=== PATIENT | female | born 2000 | race Caucasian/White ===

== ENCOUNTER → 2025-01-30 | Outpatient (CLI) | payer MEDICAID, SELFPAY ==
[2025-01-30 13:23] LABS: Creatinine, Urine (random) 73.70 mg/dL (28.00-217.00); Protein, Urine (Random) 7.2 mg/dL (0.0-12.0); Protein:Creat Ratio 98 mg/g CRE (0-200)
--- OUTSIDE RECORDS SUMMARY | 2025-01-30 19:37 | XMS RPT_ITS | CCD ---
Author Organization [facility] Care Team Providers Care Lead Java Developer Architect Name Role Phone No, Physician Unavailable Unavailable YACOB, DESALEGN Unavailable Unavailable LORENZO, JUAN Unavailable Unavailable LORENZO, JUAN Unavailable Unavailable YACOB, DESALEGN Unavailable Unavailable LORENZO, JUAN Unavailable Unavailable YACOB, DESALEGN Unavailable Unavailable YACOB, DESALEGN Unavailable Unavailable LORENZO, JUAN Unavailable Unavailable YACOB, DESALEGN Unavailable Unavailable YACOB, DESALEGN Unavailable Unavailable JUAN NGUYEN Unavailable Unavailable Juan Nguyen Primary Care Provider JUAN NGUYEN Primary Care Unavail able Juan Nguyen Primary Care Provider Regina Ramires Unavailable Feliz Waters Unavailable Brie Odell Unavailable [phone] Vee Lofton Unavailable Ok, Rema Ary Unavailable [phone] Juan Nguyen Primary Care Provider Juan Nguyen MDbeth Primary Care Provide r Regina Ramires CNP Unavailable Feliz Waters MD Unavailable [phone] Brie Odell MD Unavailable [phone] Vee Lofton MD Unavailable [phone] Ok CNM, Rema Ary Unavailable Darnell Odell DO Unavailable Unavailable Juan Nguyen Unavailable Unavailable Darnell Odell Unavailable Unavailable Juan Nguyen MD [facility] Provide r Ike GARCIA, Regina Vasquez Unavailable Jt MACARIO, Feliz Gallagher Unavailable Brie Odell MD Unavailable Rolly MACARIO, Vee Aguilar Unavailable Ok SPIVEY, Rema Ary Unavailable Juan Nguyen Unavailable Unavailable Unavailable Alyssa HARVEST CREW SUPERVISOR, Regina Christina Unavailable [phone] Jt MACARIO, Feliz Gallagher Unavailable Cass MACARIO, Brie Hammond Unavailable Rolly MACARIO, Vee Aguilar Unavailable Ok DELAROSA, Rema Ary Unavailable Darnell Odell Unavailable Unavailable Unavailable Unavailable Unavailable Unavailable Duy, Dr. Darnell Carmona Attending Unavailabl e Duy, Dr. Darnell Carmona Referring Unavailabl e Lorenzo, Dr. Juan Carrizales [facility] Fariba vailable Duy, Dr. Darnell Carmona Attending Unavailabl e Chelan, Dr. Darnell Carmona Referring Unavailabl e Lorenzo, Dr. Juan Mcgeebeth [facility] Fariba vailable Lorenzo, Dr. Juan Carrizales [facility] Fariba vailable Duy, Dr. Darnell Carmona Attending Unavailabl e Duy, Dr. Darnell Carmona Referring Unavailabl e Lorenzo, [facility] Robbie, Dr. Steele Attending Unavailable Duy, Dr. Darnell Carmona Attending Unavailabl e Chelan, Dr. Darnell Carmona Referring Unavailabl e Lorenzo, Dr. Juan Carrizales [facility] Fariba vailable Duy, Dr. Darnell Carmona Referring Unavailabl e Duy, Dr. Darnell Carmona Attending Unavailabl e Lorenzo, Dr. Juan [facility] Fariba vailable Chelan, Dr. Darnell Carmona Attending Unavailabl e Chelan, Dr. Darnell Carmona Referring Unavailabl e Lorenzo, [facility] Far[facility]ailable Duy, Dr. Darnell Cramona Attending Unavailabl e Chelan, Dr. Darnell Carmona Referring Unavailabl e Lorenzo, [facility] Rigg[facility], [facility] Chelan, Dr. Darnell Carmona Attending Unavailabl e Chelan, Dr. Darnell Carmona Referring Unavailabl e Riggins, [facility]ailable Duy, Dr. Darnell Carmona Attending Unavailabl e Chelan, Dr. Darnell Carmona Referring Unavailabl e Lorenzo, [facility]ailable MULTANI, Dr. AIDAN HOWARD Referring Unav ailable MULTANI, Dr. AIDAN HOWARD Attending Unav ailable Duy, Dr. Darnell Carmona Referring Unavailabl e Chelan, Dr. Darnell Carmona Attending Unavailabl e Lorenzo, [facility] Far[facility] vailable Duy, Dr. Darnell Carmona Referring Unavailabl e Chelan, Dr. Darnell Carmona Attending Unavailabl e Riggins, [facility]ailable Chelan, Dr. Darnell Carmona Attending Unavailabl e Duy, Dr. Darnell Carmona Referring Unavailabl e Riggins, [facility]ailable Dyu, Dr. Darnell Carmona Attending Unavailabl e Duy, Dr. Darnell Carmona Referring Unavailabl e Riggins, [facility] Far[facility]ailable Chelan, Dr. Darnell Carmona Attending Unavailabl e Chelan, Dr. Darnell Carmona Referring Unavailabl e Lorenzo, [facility] Far[facility] Duy, Dr. Darnell Carmona Attending Unavailabl e Lorenzo, [facility]ailable Chelan, Dr. Darnell Carmona Referring Unavailabl e Lorenzo, Juan Cheyenne Pimentel [place] Unavailable Unavailabl e Multani, Aidan Unavailable Unavailable Riggins, Dr. Juan Carrizales [facility] Fariba vailable Chelan, Dr. Darnell Carmona Attending Unavailabl e Lorenzo, Dr. Juan Carrizales [facility] Fariba vailable Chelan, Dr. Darnell Carmona Attending Unavailabl e Lorenzo, Dr. Juan Carrizales [facility] Fariba vailable Chelan, Dr. Darnell Carmona Referring Unavailabl e Duy, Dr. Darnell Carmona Admitting Unavailabl e Duy, Dr. Darnell Carmona Attending Unavailabl e Lorenzo, Dr. Juan Carrizales [facility] Fariba vailable Feliz Giordano Attending Unavailable GiulianaFeliz figueroa Referring Unavailable Chelan, Dr. Darnell Carmona Attending Unavailabl e Lorenzo, Dr. Juan Carrizales [facility] Fariba vailable Chelan, Dr. Darnell Carmona Referring Unavailabl e Chelan, Dr. Darnell Carmona Attending Unavailabl e Lorenzo, Dr. Juan Carrizales [facility] Fariba vailable Duy, Dr. Darnell Carmona Referring Unavailabl e Multani, Dr. Aidan Howard Attending Unav ailable Riggins, Dr. Juan Carrizales [facility] Fariba vailable Duy, Dr. Darnell Carmona Referring Unavailabl e Multani, Dr. Aidan Howard Attending Unav ailable Lorenzo, Dr. Juan Carrizales [facility] Fariba vailable Multani, Dr. Aidan Howard Referring Unav ailable Riggins, Dr. Juan Carrizales [facility] Fariba vailable Duy, Dr. Darnell Carmona Attending Unavailabl e Multani, Dr. Aidan Howard Attending Unav ailable Lorenzo, Dr. Juan Carrizales [facility] Fariba vailable Multani, Dr. Aidan Howard Referring Unav ailable Multani, Dr. Aidan Howard Admitting Unav ailable Multani, Dr. Aidan Howard Attending Unav ailable Riggins, [facility]ailable Multani, Dr. Aidan Howard Referring Unav ailable Riggins, Dr. Juan Carrizales [facility] Fariba vailable Rao, Dr. Rip Johnson Attending Unava ilable Lorenzo, Dr. Juan Mcgeebeth [facility] Fariba vailable LEMASTERS, DO CHRISTOPHER VELA Attending Unava ilable Lorenzo, Dr. Juan Carrizales [facility] Fariba vailable Duy, Dr. Darnell Carmona Attending Unavailabl e Chelan, Dr. Darnell Carmona Referring Unavailabl e Riggins, Dr. Juan Carrizales [facility] Fariba vailable Duy, Dr. Darnell Carmona Referring Unavailabl e Duy, Dr. Darnell Carmona Attending Unavailabl e Chelan, Dr. Darnell Carmona Attending Unavailabl e Lorenzo, Dr. Juan Carrizales [facility] Fariba vailable Chelan, Dr. Darnell Carmona Referring Unavailabl e Lorenzo, Dr. Juan Carrizales [facility] Fariba vailable Chelan, Dr. Darnell Carmona Referring Unavailabl e Chelan, Dr. Darnell Carmona Attending Unavailabl e Chelan, Dr. Darnell Carmona Attending Unavailabl e Riggins, Dr. Juan Carrizales [facility] Fariba vailable Chelan, Dr. Darnell Carmona Referring Unavailabl e Multani, Dr. Aidan Howard Attending Unav ailable Lorenzo, Dr. Juan Carrizales [facility] Fariba vailable Multani, Dr. Aidan Howard Referring Unav ailable Riggins, Dr. Juan Mcgeebeth [facility] Fariba vailable Multani, Dr. Aidan Howard Referring Unav ailable Multani, Dr. Aidan Howard Attending Unav ailable Angle HARVEST CREW SUPERVISOR, Regina Vasquez Unavailable Jt MACARIO, Feliz Gallagher Unavailable Brie Odell MD Unavailable [phone] Vee Lofton MD Unavailable Ok SPIVEY, Rema Mcallister Unavailable Sergey GARCIA, Hayley Pelletier Primary Care Provider Etzel H[employer] OPERATOR-[facility], Hayley Primary Care Provider Corrine MACARIO, Vee Aguilar Unavailable [phone] ETKEITH, HAYLEY PELLETIER Primary Care Unavailable ETZEL, HAYLEY PELLETIER Primary Care Unavailable ETZEL, HAYLEY PELLETIER Attending Unavailable ETZEL, HAYLYE PELLETIER Referring Unavailable Etzel [employer], Hayley Primary Care Provider [phone] ETZEL, HAYLEY Primary Care Unavailable LORETO ART Attending Unavailable LORETO ART Referring Unavailable ETZEL, HAYLEY PELLETIER Primary Care Unavailable RICCARDO OSBORNE Attending Unavailable ETZEL, HAYLEY PELLETIER Primary Care Unavailable EFREN JASSO Attending Unavailable ETZEL, HAYLEY PELLETIER Primary Care Unavailable LORETO THOMPSON Attending Unavailable Etzel [facility], Hayley Primary Care Provider ETKEITH, HAYLEY PELLETIER Primary Care Unavailable CANDIS SAUNDERS Attending Unavail able ETZEL, HAYLEY PELLETIER Primary Care Unavailable CANDIS SAUNDERS Attending Unavail able MASIMJOSHUA ROBLES Attending Unava ilable ETZEL, HAYLEY PELLETIER Primary Care Unavailable CANDIS SAUNDERS Attending Unavail able ETZEL, HAYLEY PELLETIER Primary Care Unavailable LORETO HAYES Attending Unavailable MASJOSHUA CARDENAS Admitting Unava ilable MASIMMARGARET, JOSHUA CHEN Referring Unava ilable ETZEL, HAYLEY PELLETIER Primary Care Unavailable ETZEL, HAYLEY PELLETIER Primary Care Unavailable CANDIS SAUNDERS Attending Unavail able ETZEL, HAYLEY PELLETIER Primary Care Unavailable CANDIS SAUNDERS Attending Unavail able ETZEL, HAYLEY PELLETIER Primary Care Unavailable CANDIS SAUNDERS Attending Unavail able ETZEL, HAYLEY PELLETIER Primary Care Unavailable SAUNDERSCANDIS DIA Attending Unavail able SAUNDERSCANDIS Attending Unavail able ETZEL, HAYLEY PELLETIER Primary Care Unavailable CANDIS SAUNDERS Attending Unavail able ETZEL, HAYLEY PELLETIER Primary Care Unavailable ETZEL, HAYLEY PELLETIER Referring Unavailable ETZEL, HAYLEY PELLETIER Attending Unavailable ETZEL, HAYLEY PELLETIER Primary Care Unavailable MIRTHA CHO Attending Unavailable SELF, SELF Referring Unavailable ETZEL, HAYLEY Primary Care Unavailable ETZEL, HAYLEY Primary Care Unavailable SELF, SELF Referring Unavailable APRIL BULL Attending Unavailable OSMAR PADILLA Attending Unavailable SELF, SELF Referring Unavailable ETZEL, HAYLEY Primary Care Unavailable ROGELIO FREEMAN Attending Unavailable ROGELIO FREEMAN Referring Unavailable ETZEL, HAYLEY Primary Care Unavailable LORETO ART Attending Unavailable LORETO ART Referring Unavailable ETZEL, HAYLEY Primary Care Unavailable LORETO ART Referring Unavailable JORGITO, APRIL Attending Unavailable ETZEL, HAYLEY Primary Care Unavailable JORGITO, APRIL Attending Unavailable JORGITO, APRIL Referring Unavailable ETZEL, HAYLEY Primary Care Unavailable JORGITO, APRIL Attending Unavailable JORGITO, APRIL Referring Unavailable ETZEL, HAYLEY Primary Care Unavailable JORGITO, APRIL Attending Unavailable JORGITO, APRIL Referring Unavailable ETZEL, HAYLEY Primary Care Unavailable JORGITO, APRIL Attending Unavailable JORGITO, APRIL Referring Unavailable ETZEL, HAYLEY Primary Care Unavailable Leesa MACARIO, Dr. Enamorado Attending Provider Kelsea Landers Attending Unavailable Kelsea Landers Attending Unavailable Allergies Allergy Classification Reported Allergen(s) Allergy Type Date of Onset Reaction(s) Facility Latex (7 sources) natural latex rubber; Translations: [Latex Gloves] Substance Allergy 4 Rash [facility] lurasidone (2 sources) lurasidone Drug Allergy 9 Other (See Comments) [facility] montelukast (6 sources) montelukast; Translations: [Singulair] Drug Allergy 4 Other (See Comments) [facility] Ondansetron (2 sources) Ondansetron Drug Allergy 9 GI Intolerance [facility] Serotonin Reuptake Inhibitors (SSRIs) (2 sources) Sertraline Drug Allergy 9 Anxiety [facility] (20 sources) montelukast; Translations: [MONTELUKAST] Drug Allergy 4 Other (See Comments), Hallucination [facility] (20 sources) natural latex rubber; Translations: [LATEX, NATURAL RUBBER] Propensity to adverse reactions to drug (disorder) 4 Rash [facility] (20 sources) Ondansetron; Translations: [ONDANSETRON HCL] Drug Allergy 9 GI Intolerance [facility] (20 sources) lurasidone; Translations: [Unknown] Drug Allergy 9 Other (See Comments), Suicidal [facility] Rep[facility] (20 sources) Sertraline Drug Allergy 9 Anxiety, Agitation [facility] (20 sources) Latex rubber gloves; Translations: [Latex Gloves] Allergy to drug (finding) [facility] [address] [employer] Work Phone: (20 sources) montelukast; Translations: [Singulair] Drug Allergy 1 [facility] [address] [employer] Work Phone: (16 sources) Latex; Translations: [latex] 7 Rash [facility] (2 sources) lurasidone Drug Allergy Other [facility] (2 sources) montelukast Drug Allergy Other [facility] (20 sources) topiramate; Translations: [TOPIRAMATE] Drug Allergy 0 Other (See Comments) [facility] (13 sources) Ondansetron Drug Allergy 9 Nausea and Vomiting [facility] [employer] [facility] (2 sources) Topiramate Propensity to adverse reactions to drug 0 [facility] [employer] [facility] (1 source) Ondansetron Drug Allergy 5 [facility] Repository Medications Current Medications Medication Drug Class(es) Dates Sig (Normalized) Sig (Original) acetaminophen 300 mg / codeine phosphate 30 mg oral tablet (2 sources) Opioid Agonist Start: 08-06-2020 End: 08-09-2020 take 1 tablet by mouth once at bedtime as needed for headache acetaminophen-cod eine (TYLENOL #3) 300-30 mg per tablet Indications: Chronic tension-type headache, not intractable Take 1 (one) tablet by mouth at bedtime as needed (headache) . 3 tablet 0 08/06/2020 08/09/2020 Active amoxicillin 500 mg oral capsule (10 sources) Penicillin-class Antibacterial Start: 11-01-2024 End: 11-08-2024 take 1 capsule by mouth every twelve hours Amoxicillin 500 MG capsule Indications: Strep throat Take 1 capsule by mouth every 12 hours for 7 days. 14 capsule 11/01/2024 11/08/2024 Active Start: 05-14-2023 End: 05-24-2023 take 1 tablet by mouth twice daily amoxicillin (AMOXIL) 875 MG tablet Indications: Recurrent acute suppurative otitis media without spontaneous rupture of tympanic membrane of both sides Take 1 (one) tablet (875 mg total) by mouth 2 (two) times a day for 10 days . 20 tablet 0 05/14/2023 05/24/2023 Active Start: 06-06-2022 take 1 capsule by mo ut three times daily amoxicillin (AMOXIL) 500 MG capsule Take 1 (one) capsule (500 mg total) by mouth 3 (three) times a day . 30 capsule 0 06/06/2022 Active Start: 01-21-2021 take 1 capsule by mo uth three times daily amoxicillin (AMOXIL) 500 MG capsule Take 1 (one) capsule (500 mg total) by mouth 3 (three) times a day . 30 capsule 0 01/21/2021 Active amoxicillin 875 mg / clavulanate 125 mg oral tablet (4 sources) Penicillin-class Antibacterial Start: 09-18-2024 End: 09-25-2024 take 1 tablet by mouth twice daily amoxicillin-clavulanate (AUGMENTIN) 875-125 mg per tablet Indications: Recurrent acute suppurative otitis media without spontaneous rupture of tympanic membrane of both sides Take 1 (one) tablet by mouth 2 (two) times a day for 7 days . 14 tablet 09/18/2024 09/25/2024 Active Start: 02-14-2024 End: 02-21-2024 take 1 tablet by mouth every twelve hours Amoxicillin-clavulanate 875-125 MG table t Take 1 tablet by mouth every 12 hours for 7 days. 14 tablet 02/14/2024 02/21/2024 Active Start: 12-25-2022 End: 01-04-2023 take 1 tablet by mouth twice daily amoxicillin-clavulanate (Augmentin) 875-125 mg per tablet Indications: Non-recurrent acute suppurative otitis media of right ear without spontaneous rupture of tympanic membrane , Sinusitis, unspecified chronicity, unspecified location Take 1 (one) tablet by mouth 2 (two) times a day for 10 days . 20 tablet 0 12/25/2022 01/04/2023 Active atomoxetine 80 mg oral capsule (20 sources) Norepinephrine Reuptake Inhibitor Start: 09-19-2023 End: 08-07-2024 take 1 capsule by mouth once daily atomoxetine (STRATTERA) 80 MG capsule Indications: Adult ADHD Take 1 (one) capsule (80 mg total) by mouth daily . 30 capsule 1 03/06/2024 08/07/2024 Discontinued (Therapy completed) Start: 08-21-2023 End: 10-20-2023 take 1 capsule by mouth once daily atomoxetine (STRATTERA) 60 MG capsule Indications: Adult ADHD Take 1 (one) capsule (60 mg total) by mouth daily . 30 capsule 1 08/21/2023 09/19/2023 Discontinued (Reorder (Suppress CancelRx Message to Pharmacy)) Start: 07-19-2023 End: 08-21-2023 take 1 capsule by mouth once daily atomoxetine (STRATTERA) 40 MG capsule Take 1 (one) capsule (40 mg total) by mouth daily . 0 07/19/2023 08/21/2023 Discontinued (Reorder (Suppress CancelRx Message to Pharmacy)) Atomoxetine 60 M G capsule Take 80 mg by mouth daily. Active busPIRone hydrochloride 7.5 mg oral tablet (12 sources) Start: 09-19-2023 End: 10-30-2024 take 1 tablet by mouth three times daily busPIRone (BUSPAR) 7.5 MG tablet Indications: MATILDA (generalized anxiety disorder) Take 1 (one) tablet (7.5 mg total) by mouth 3 (three) times a day . 90 tablet 1 10/31/2023 03/06/2024 Discontinued (Therapy completed) Start: 08-21-2023 End: 08-20-2024 take 1 tablet by mouth three times daily busPIRone (BUSPAR) 5 MG tablet Indications: MATILDA (generalized anxiety disorder) Take 1 (one) tablet (5 mg total) by mouth 3 (three) times a day . 90 tablet 1 08/21/2023 09/19/2023 Discontinued (Reorder (Suppress CancelRx Message to Pharmacy)) End: 01-16-2024 take 1.5 tablets by mouth three times daily busPIRone 5 MG tablet Take 1.5 tablets by mouth 3 times daily. 01/16/2024 Discontinued (Side effects) 12 hr carBAMazepine 200 mg extended release oral tablet (20 sources) Mood Stabilizer Start: 11-05-2024 carBAMazepine (TEGretol XR) 200 MG 12 hr tablet Indications: Bipolar 1 disorder, mixed (HCC) 400mg po AM, 200mg po PM x 7 days, 200mg po BID x 7 days, 200mg po daily for 7 days, then stop . 42 tablet 11/05/2024 Active Start: 10-31-2023 End: 10-09-2025 take 1 tablet by mouth twice daily carBAMazepine (TEGretol XR) 400 MG 12 hr tablet Indications: Bipolar 1 disorder (HCC) Take 1 (one) tablet (400 mg total) by mouth 2 (two) times a day . 60 tablet 1 10/09/2024 11/05/2024 Discontinued (Reorder (Suppress CancelRx Message to Pharmacy)) Start: 08-21-2023 End: 09-18-2024 take 2 tablets by mouth once daily in the morning, then take 1 tablet by mouth once daily carBAMazepine (TEGretol XR) 200 MG 12 hr tablet Indications: Bipolar 1 disorder (HCC) Take 2 (two) tablets (400 mg total) by mouth every morning AND 1 (one) tablet (200 mg total) nightly. 90 tablet 1 09/19/2023 09/18/2024 Active Start: 10-16-2022 End: 08-21-2023 carBAMazepine 200 MG tablet 2 tablets 2 times daily. 10/16/2022 Active Start: 10-16-2022 carBAMazepine 200 MG tablet 2 tablets. 10/16/2022 Active cariprazine 1.5 mg oral capsule (10 sources) Atypical Antipsychotic Start: 03-06-2024 End: 08-13-2024 take 1 capsule by mouth once daily Cariprazine HCl 1.5 MG capsule capsule Take 1 capsule by mouth daily. 03/06/2024 Active Start: 01-30-2023 End: 01-16-2024 take 1 capsule by mouth once daily, then take 2 capsules by mouth once daily Vraylar 1.5 MG capsule capsule take 1 capsule by mouth once daily for 1 day then INCREASE to 2 capsules once daily for 30 DAYS 01/30/2023 01/16/2024 Discontinued (Other (suppress cancel msg)) cephalexin 500 mg oral capsule (3 sources) Cephalosporin Antibacterial Start: 04-05-2023 End: 04-15-2023 take 1 capsule by mouth four times daily cephALEXin (KEFLEX) 500 MG capsule Indications: Mastitis, acute Take 1 (one) capsule (500 mg total) by mouth 4 (four) times a day for 10 days . 40 capsule 0 04/05/2023 04/15/2023 Active Start: 04-05-2023 End: 04-05-2023 take 1 capsule by mouth once cephALEXin (KEFLEX) 500 M G capsule Indications: Mastitis, acute Take 1 (one) capsule (500 mg total) by mouth once for 1 dose . 1 capsule 0 04/05/2023 04/05/2023 Active Start: 05-09-2022 End: 05-15-2022 take 1 tablet by mouth twice daily cephalexin 500 mg oral tablet ; 1 tab(s) orally 2 times a day Quantity: 14 Refills: 0 Ordered: 09-May-2022 [place] Start: 09-May-2022 End: 15-May-2022 Generic Substitution Allowed Comments: Finish all this medication unless otherwise directed by prescriber. Comment on above: Finish all this medi cation unless otherwise directed by prescriber. cholecalciferol 0.125 mg oral capsule (14 sources) Vitamin D Start: take 1 capsule by mouth once daily Cholecalciferol (Vitamin D3) 125 mcg (5,000 unit) capsule Active 125 ug PO daily January 13, 2025 12:00am Start: 11-26-2024 take 1 tablet by tomi th once daily cholecalciferol, vitamin D3, (Vitamin D3) 5,000 unit Tab tablet Take 1 (one) tablet (5,000 Units total) by mouth daily . 30 tablet 3 11/26/2024 Active Start: 11-04-2022 End: 03-06-2024 take 1 tablet by mouth once daily cholecalciferol, vitamin D3, (Vitamin D3) 5,000 unit Tab tablet Take 1 (one) tablet (5,000 Units total) by mouth daily . 30 tablet 3 11/04/2022 03/06/2024 Discontinued (Therapy completed) citalopram 20 mg oral tablet (20 sources) Serotonin Reuptake Inhibitor Start: 10-31-2023 End: 08-07-2024 take 1 tablet by mouth once daily citalopram (CELEXA) 20 MG tablet Indications: MATILDA (generalized anxiety disorder) Take 1 (one) tablet (20 mg total) by mouth nightly . 30 tablet 1 03/06/2024 08/07/2024 Discontinued (Therapy completed) Start: 09-19-2023 End: 09-19-2023 take 1 tablet by mouth once daily citalopram (CELEXA) 20 MG tablet Indications: MATILDA (generalized anxiety disorder) Take 1 (one) tablet (20 mg total) by mouth nightly . 30 tablet 1 09/19/2023 Active Start: 07-20-2021 End: 08-19-2021 take 1 tablet by mouth once daily citalopram (CELEXA) 10 MG tablet Indications: Post traumatic stress disorder (PTSD) , Generalized anxiety disorder with panic attacks Take 1 (one) tablet (10 mg total) by mouth daily . 30 tablet 0 07/20/2021 08/19/2021 Active diazoxide 50 mg/ml oral suspension (7 sources) Start: 11-21-2023 End: 03-06-2024 take 13.5 mL by mouth once daily diazoxide (PROGLYCEM) 50 mg/mL suspension Take 13.5 mL (675 mg total) by mouth daily . 300 mL 1 11/21/2023 03/06/2024 Discontinued (Therapy completed) dicloxacillin 500 mg oral capsule (1 source) Penicillin-class Antibacterial Start: 09-02-2023 End: 09-09-2023 take 1 capsule by mouth four times daily Dicloxacillin 500 MG capsule Indications: Mastitis, right, acute Take 1 capsule by mouth 4 times daily for 7 days. 28 capsule 09/02/2023 09/09/2023 Active docosahexaenoic acid 200 mg oral capsule (2 sources) Start: 01-13-2025 Docosahexaenoic Acid ( Dha) 200 mg capsule Active mg PO January 13, 2025 12:00am doxylamine succinate 10 mg / pyridoxine hydrochloride 10 mg delayed release oral tablet (1 source) Start: 01-30-2025 Doxylamine-Pyridoxi ne (Vit B6) (Diclegis) 10-10 mg tablet,delayed release (DR/EC) Active 1 {tbl} PO TWICE A DAY 60 5 January 30, 2025 12:00am DULoxetine 20 mg delayed release oral capsule (6 sources) Serotonin and Norepinephrine Reuptake Inhibitor Start: 03-11-2021 End: 07-20-2021 take 1 capsule by mouth once daily, then take 1 capsule by mouth twice daily DULoxetine (CYMBALTA) 20 MG capsule TAKE 1 CAPSULE BY MOUTH EVERY DAY FOR 3 DAYS, then 1 capsule TWICE DAILY THEREAFTER 0 03/11/2021 07/20/2021 Discontinued (Patient's Request) End: 11-25-2019 take 2 capsules by mouth once daily DULoxetine (CYMBALTA) 20 MG capsule Take 40 mg by mouth daily . 0 11/25/2019 Discontinued (Error) famotidine 20 mg oral tablet (4 sources) Histamine-2 Receptor Antagonist Start: 01-21-2021 End: 07-20-2021 take 1 tablet by mouth once daily famotidine (PEPCID) 20 MG tablet Take 1 (one) tablet (20 mg total) by mouth daily . 30 tablet 0 01/21/2021 07/20/2021 Discontinued (Therapy completed) fluticasone propionate 0.05 mg/actuat metered dose nasal spray (3 sources) Corticosteroid Start: 12-25-2022 End: 12-25-2023 take 2 spray(s) nasal route once daily fluticasone propionate (FLONASE) 50 mcg/actuation nasal spray Indications: Non-recurrent acute suppurative otitis media of right ear without spontaneous rupture of tympanic membrane , Sinusitis, unspecified chronicity, unspecified location Instill 2 (two) sprays into each nostril daily . 16 g 12 12/25/2022 12/25/2023 Active folic acid 0.4 mg oral tablet (2 sources) Start: 01-13-2025 take 0.4 mg by mouth once daily Folic Acid 400 mcg tablet Active 0.4 mg PO daily January 13, 2025 12:00am hydrOXYzine pamoate 50 mg oral capsule (8 sources) Antihistamine Start: 12-03-2024 take 1 capsule by mouth three times daily as needed for anxiety hydrOXYzine (VISTARIL) 50 MG capsule Take 1 (one) capsule (50 mg total) by mouth 3 (three) times a day as needed for anxiety . 90 capsule 2 12/03/2024 Active Start: 10-23-2024 take 1 capsule by [facility] three times daily as needed for anxiety hydrOXYzine (VISTARIL) 25 MG capsule Take 1 (one) capsule (25 mg total) by mouth 3 (three) times a day as needed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 Normal 80.0-100.0 [facility] Comment on above: Performed By: #### F X, LIP2, CMPF, ACBC ####Testing performed at [address] [address] Platelet mean volume (Bld) [Entitic vol] 9.3 fL Normal 7.4-11.0 [facility] Comment on above: Performed By: #### F X, LIP2, CMPF, ACBC ####Testing performed at [place] [id number] Platelets (Bld) [#/Vol] 279 10*3/uL Normal 130-400 [facility] Comment on above: Performed By: #### F X, LIP2, CMPF, ACBC ####[place] [address] RBC (Bld) [#/Vol] 4.79 10*6/uL Normal 4.0-5.4 [facility] Comment on above: Performed By: #### F X, LIP2, CMPF, ACBC ####[place] [address] WBC (Bld) [#/Vol] 7.2 10*3/uL Normal 3.6-11.0 [facility] Comment on above: Performed By: #### F X, LIP2, CMPF, ACBC ####Testing performed at [address] [address] CMP FASTINGon 01-05-2025 A:G RATIO 1.7 RATIO Normal [facility] Comment on above: Performed By: #### F X, LIP2, CMPF, ACBC ####Testing performed at [place] [id number] Albumin [Mass/Vol] 4.8 g/dL Normal 3.5-5.0 [facility] Comment on above: Performed By: #### F X, LIP2, CMPF, ACBC ####Testing performed at [facility] [address] [place] [address] ALP [Catalytic activity/Vol] 53 U/L Normal 38-126 [facility] Comment on above: Performed By: #### F X, LIP2, CMPF, ACBC ####Testing performed at [address] [address] ALT [Catalytic activity/Vol] 32 U/L Normal <35 [facility] Comment on above: Performed By: #### F X, LIP2, CMPF, ACBC ####Testing performed at [address] [address] AST [Catalytic activity/Vol] 29 U/L Normal 14-36 [facility] Comment on above: Performed By: #### F X, LIP2, CMPF, ACBC ####Testing performed at [address] [address] Bilirubin [Mass/Vol] 1.4 mg/dL High 0.2-1.3 [facility] Comment on above: Performed By: #### F X, LIP2, CMPF, ACBC ####Testing performed at [address] [address] Calcium [Mass/Vol] 9.4 mg/dL Normal 8.4-10.2 [facility] Comment on above: Performed By: #### F X, LIP2, CMPF, ACBC ####Testing performed at [address] [address] Chloride [Moles/Vol] 103 mmol/L Normal 98-107 [facility] Comment on above: Result Comment: Jayme george note: Triglyceride levels of 600mg/dL or higher may positively bias chloride results by approximately 2.1 mmol Performed By: #### F X, LIP2, CMPF, ACBC ####Testing performed at [address] [address] CO2 [Moles/Vol] 21 mmol/L Low 22-30 [facility] Comment on above: Performed By: #### F X, LIP2, CMPF, ACBC ####Testing performed at [address] [address] Creatinine [Mass/Vol] 0.79 mg/dL Normal 0.70-1.20 [facility] Comment on above: Performed By: #### F X, LIP2, CMPF, ACBC ####Testing performed at [place] [id number] GFR Information Average GFR for 18-2 9 years old = 116. Normal [facility] Comment on above: Result Comment: Nutrition Instructor andrade Kidney disease, GFR = <60. Kidney failure, GFR = <15. The GFR estimate is not adjusted for extreme body surface area or acute process, nor has it been validated for women or ethnic groups other than and . Performed By: #### F X, LIP2, CMPF, ACBC ####Testing performed at [place] 6143806 GFR/1.73 sq M.predicted MDRD (S/P/Bld) [Vol rate/Area] 94 mL/min/{1.73_m2} Normal [facility] Comment on above: Performed By: #### F X, LIP2, CMPF, ACBC ####Testing performed at [place] [id number] Glucose [Mass/Vol] 85 mg/dL Normal 70-100 [facility] Comment on above: Result Comment: NORMAL <100 mg/dL PREDIABETES 101-126 mg/dL DIABETES 126 mg/dL or higher Performed By: #### F X, LIP2, CMPF, ACBC ####Testing performed at [place] [id number] Potassium [Moles/Vol] 4.0 mmol/L Normal 3.5-5.1 [facility] Comment on above: Performed By: #### F X, LIP2, CMPF, ACBC ####Testing performed at [place] [address]143806 Protein [Mass/Vol] 7.6 g/dL Normal 6.3-8.2 [facility] Comment on above: Performed By: #### F X, LIP2, CMPF, ACBC ####Testing performed at [place] [id number] Sodium [Moles/Vol] 136 mmol/L Low 137-145 [facility] Comment on above: Performed By: #### F X, LIP2, CMPF, ACBC ####Testing performed at [address] [address] Urea nitrogen [Mass/Vol] 11 mg/dL Normal 7-20 [facility] Comment on above: Performed By: #### F X, LIP2, CMPF, ACBC ####Testing performed at [address] [address] FAX REQUESTon 01-05-2025 FAX TO [phone] Normal [facility] Comment on above: Performed By: #### F X, LIP2, CMPF, ACBC #### Testing performed at [address] [address] HEMOGLOBIN A1Con 01-05-2025 Glucose [Mass/Vol] 80 mg/dL Normal [facility] Comment on above: Performed By: #### H A1CT #### Testing performed at [address] [address] HbA1c (Bld) [Mass fraction] 4.4 % Normal 0-6 [facility] Comment on above: Result Comment: NORMAL <5.7% PREDIABETES 5.7-6.4% DIABETES 6.5% OR HIGHER Performed By: #### H A1CT #### Testing performed at [address] [address] LIPID PROFILEon 01-05-2025 Cholesterol [Mass/Vol] 152 mg/dL Normal 107-217 [facility] Comment on above: Performed By: #### F X, LIP2, CMPF, ACBC ####Testing performed at [address] [address] Cholesterol in HDL [Mass/Vol] 37 mg/dL Normal 33-75 [facility] Comment on above: Performed By: #### F X, LIP2, CMPF, ACBC ####Testing performed at [address] [address] Cholesterol in LDL [Mass/Vol] 102 mg/dL High <100 [facility] Comment on above: Performed By: #### F X, LIP2, CMPF, ACBC ####Testing [place] [address] Cholesterol in VLDL [Mass/Vol] 13 mg/dL Normal 5-25 [facility] Comment on above: Performed By: #### F X, LIP2, CMPF, ACBC ####[place] [address] Cholesterol.total/Ch olesterol in HDL [Mass ratio] 4.11 {ratio} Normal [facility] Comment on above: Result Comment: RISK TOTAL/HDL RATIO MEN WOMEN 1/2 AVERAGE 3.43 3.27 AVERAGE 4.97 4.44 2X AVERAGE 9.55 7.05 3X AVERAGE 23.99 11.04 Performed By: #### F X, LIP2, CMPF, ACBC ####Testing performed at [place] 6[address]806 Triglyceride [Mass/Vol] 63 mg/dL Normal 0-150 [facility] Comment on above: Performed By: #### F X, LIP2, CMPF, ACBC ####Testing performed at [place] 6143806 TSHon 01-05-2025 TSH 0.718 uIU/ML Normal 0.465-4.680 [facility] Comment on above: Performed By: #### T SH2 #### [place] [address] XR CHEST AP/PA AND LATon XR CHEST AP/PA AND LAT EXAMINATION: XR CHEST AP/PA AND LAT HISTORY: ORDERING SYSTEM PROVIDED HISTORY: screening for TB, TECHNOLOGIST PROVIDED HISTORY: Illness/Other Reason for exam: Verifying no TB Cancer History: u Surgery, RadiationHistory: u Encounter Type: Initial Additional signs and symptoms: . ORDERING SYSTEM PROVIDED DIAGNOSIS CODES: Z11.1 Screening-pulmonary TB COMPARISON: 09/08/2023 FINDINGS: Two-view chest x-ray. No pneumothorax, pleural effusion or focal airspace consolidation. Heart is normal in size. Bony thorax is unremarkable. IMPRESSION: No acute cardiopulmonary process. Workstation ID: [id number] Dictated by: GRACIELA STACY on SunDecember 19, 2024 10:28:04 PM EDT Transcribed by: GRACIELA STACY on Fri December 19, 2024 10:28:04 PM EDT Finalized by: GRACIELA STACY on SunDecember 19, 2024 10:28:04 PM EDT Normal [facility] Comment on above: Order Comment: Injur y/Trauma or Illness?:Illness/Other How long have you had these symptoms (acute/chronic)?:Unknown Reason for exam?:veryifying no TB History of cancer?:u Surgeries, chemotherapy, or radiation?:u Type of Exam?:Initial Additional signs and symptoms?:. POCT RAPID STREP Aon 025 S. pyogenes Ag Ql (Throat) Positive (+/-) [facility] Internal controls OK [facility] T4, FREEon 09-05-2024 Free T4 [Mass/Vol] 0.8 ng/dL Normal 0.8-1.8 [facility] Comment on above: Order Comment: FASTI NG:NO FASTING: NO Performed By: #### 8 66 #### [facility] [address], [address] [place] [id number] Oil Program Compliance Specialist: Guicho Buckley MD ED Prov Noteon 08-19-2024 ED Prov Note ED PROVIDER NOTE [facility] EM[facility]ENCY [facility]PART[facility] NAME: Rohan Mccartney AGE: 23 y.o. : 2000 VISIT DATE: 08/19/2024 CSN: [id number] PCP: Hayley Rincon, [employer] Chief Complaint Patient presents with Emesis Diarrhea Patient presents with vomiting and diarrhea that started this morning. 5-6 episodes of vomiting and 8 episodes of diarrhea this morning. No fever chills cough or neck pain. Patient does not respond well to Zofran. Patient had a negative test 2 weeks ago and denies any abdominal pain at this time. No fever or chills. No chest pain or shortness of breath. Patient denies any vaginal bleeding. Past Medical History: Diagnosis Date Anxiety Bipolar 1 disorder (HCC) Borderline personality disorder (HCC) Depression Irritable bowel syndrome Major depressive disorder Miscarriage within last 12 months Polycystic ovarian disease depression Preeclampsia complicating hypertension PTSD (post-traumatic stress disorder) 08/21/2023 Past Surgical History: Procedure Laterality Date adnoids TONSILLECTOMY tubes in ears Family History Problem Relation Age of Onset Cancer Mother Depression Mother Stroke Mother Vision loss Mother Mental illness Sister Depression Sister Heart disease Sister Kidney disease Sister Learning disabilities Brother Diabetes Maternal Grandmother Hyperlipidemia Maternal Grandfather Hypertension Maternal Grandfather Social History Socioeconomic History Marital status: Single Tobacco Use Smoking status: Former Current packs/day: 0.50 Average packs/day: 0.5 packs/day for 0.5 years (0.3 ttl pk-yrs) Types: Cigarettes Smokeless tobacco: Never Tobacco comments: 2-3 a day Vaping Use Vaping status: Former Substance and Sexual Activity Alcohol use: Not Currently Drug use: Never Sexual activity: Yes Partners: Male control/protection: None Social Drivers of Health Financial Resource Strain: Low Risk (01/25/2023) Overall Financial Resource Strain (CARDIA) Difficulty of Paying Living Expenses: Not hard at all Food Insecurity: No Food Insecurity (01/25/2023) Hunger Vital Sign Worried About Running Out of Food in the Last Year: Never true Ran Out of Food in the Last Year: Never true Transportation Needs: No Transportation Needs (01/25/2023) PRAPARE - Transportation Lack of Transportation (Medical): No Lack of Transportation (Non-Medical): No Physical Activity: Sufficiently Active (01/25/2023) Exercise Vital Sign Days of Exercise per Week: 5 days Minutes of Exercise per Session: 60 min Stress: Stress Concern Present (01/25/2023) [place] [employer] - Occupational Stress Questionnaire Feeling of Stress : Rather much Social Connections: Moderately Isolated (01/25/2023) Social Connection and Isolation Panel [NHANES] Frequency of Communication with Friends and Family: More than three times a week Frequency of Social Gatherings with Friends and Family: Three times a week Attends Voodoo Services: Never Active Member of Clubs or Organizations: No Attends Club or Organization Meetings: Never Marital Status: Living with partner Housing Stability: Low Risk (01/25/2023) Housing Stability Vital Sign Unable to Pay for Housing in the Last Year: No Number of Places Lived in the Last Year: 1 Unstable Housing in the Last Year: No Previous Medications Medication Sig carBAMazepine (TEGretol XR) 400 MG 12 hr tablet Take 1 (one) tablet (400 mg total) by mouth 2 (two) times a day . levomefolate calcium 15 mg Tab Take 1 (one) tablet (15 mg total) by mouth daily . ziprasidone (GEODON) 20 MG capsule Take 1 (one) capsule (20 mg total) by mouth 2 (two) times a day with meals . Allergies Allergen Reactions Latex, Natural Rubber Rash Montelukast Other (See Comments) Halucinations Zofran [Ondansetron Hcl] GI Intolerance Latuda [Lurasidone] Other (See Comments) Suicidal Topiramate Other (See Comments) Depression Review of Systems All other systems reviewed and are negative. Patient Vitals for the past 24 hrs: BP Temp Temp src Pulse Resp SpO2 Height Weight 08/19/24 1322 114/62 -- -- 73 16 96 % -- -- 08/19/24 1019 118/83 99 degrees F (37.2 degrees C) Oral (!) 113 16 98 % 5' 1 93.9 kg (207 lb) Physical Exam HENT: Nose: Nose normal. Cardiovascular: Rate and Rhythm: Tachycardia present. Heart sounds: Normal heart sounds. Musculoskeletal: Cervical back: Neck supple. Pulmonary: Breath sounds: Normal breath sounds. Abdominal: Palpations: Abdomen is soft. Tenderness: There is no abdominal tenderness. There is no guarding or rebound. Neurological: General: No focal deficit present. Mental Status: She is alert. Psychiatric: Mood and Affect: Mood normal. There is no right or left lower quadrant tenderness. Laboratory & Radiographic Imaging (if done): Results for orders placed or performed during the hospita (more content not included)... Normal [facility] POC BASIC METABOLIC PANEL - [facility] 08-19-2024 Chloride [Moles/Vol] 104 mmol/L Normal 98-108 [facility] Comment on above: Order Comment: [facility] has implemented the eGFR calculation approach that does not have a coefficient for race that conforms to the NKF-ASN Task Force Recommendations. Performed By: #### P [id number] #### ONED FSED POCT LAB [address] [place], [place] [address] Jamar Caldwell D.O. [id number] CO2 [Moles/Vol] 27 mmol/L Normal 21-32 [facility] Comment on above: Order Comment: [facility] has implemented the eGFR calculation approach that does not have a coefficient for race that conforms to the NKF-ASN Task Force Recommendations. Performed By: #### P [id number] #### ONED FSED POCT LAB [address] [place] [address] Shannon Lopez.OMaria [place] [id number] Creatinine [Mass/Vol] 0.77 mg/dL Normal 0.40-1.10 [facility] Comment on above: Order Comment: [facility] has implemented the eGFR calculation approach that does not have a coefficient for race that conforms to the NKF-ASN Task Force Recommendations. Performed By: #### P [id number] #### ONED FSED POCT LAB [address] [place] [address] Jamar Caldwell D.OMaria [place] [id number] Glucose [Mass/Vol] 100 mg/dL High 65-99 [facility] Comment on above: Order Comment: [facility] has implemented the eGFR calculation approach that does not have a coefficient for race that conforms to the NKF-ASN Task Force Recommendations. Performed By: #### P [id number] #### ONED FSED POCT LAB [address] [place] [address] Shannon Lopez.OMaria [place] [id number] POC GFR 111 mL/min/1.73 m2 Normal >=60 [facility] Comment on above: Order Comment: [facility] has implemented the eGFR calculation approach that does not have a coefficient for race that conforms to the NKF-ASN Task Force Recommendations. Result Comment: Zoe mated GFR was calculated using the 2020 CKD-EPI creatinine equation. Performed By: #### P [id number] #### ONED FSED POCT LAB [address] [place] [address] Shannon Lopez.OMaria [place] [id number] POC IONIZED CALCIUM 4.8 mg/dL Normal 4.5-5.3 [facility] Comment on above: Order Comment: [facility] has implemented the eGFR calculation approach that does not have a coefficient for race that conforms to the NKF-ASN Task Force Recommendations. Performed By: #### P [id number] #### ONED FSED POCT LAB [address] [place] [address] Jamarjeramy Caldwell D.O. [id number] Potassium [Moles/Vol] 4.3 mmol/L Normal 3.5-5.1 [facility] Comment on above: Order Comment: [facility] has implemented the eGFR calculation approach that does not have a coefficient for race that conforms to the NKF-ASN Task Force Recommendations. Performed By: #### P [id number] #### ONED FSED POCT LAB [address] [place] [address] Jamar Caldwell D.O. [id number] Sodium [Moles/Vol] 143 mmol/L Normal 135-145 [facility] Comment on above: Order Comment: [facility] has implemented the eGFR calculation approach that does not have a coefficient for race that conforms to the NKF-ASN Task Force Recommendations. Performed By: #### P [id number] #### ONED FSED POCT LAB [address] [place] [address] Jamar Caldwell D.O. [id number] Urea nitrogen [Mass/Vol] 21 mg/dL Normal 8-25 [facility] Comment on above: Order Comment: [facility] has implemented the eGFR calculation approach that does not have a coefficient for race that conforms to the NKF-ASN Task Force Recommendations. Performed By: #### P [id number] #### ONED FSED POCT LAB [address] [place] [address] Jamar Caldwell D.O. [id number] POC CBC AND DIFFERENTIALon 0 08-19-2024 BASOPHILS ABSOLUTE COUNT 0.01 K/mcL Normal 0.00-0.30 [facility] Comment on above: Performed By: #### L [id number] #### ONED FSED POCT LAB [address] [place] [address] Jamar Caldwell D.O. [id number] Basophils/100 WBC (Bld) 0.1 % Normal [facility] Comment on above: Performed By: #### L [id number] #### ONED FSED POCT LAB [address] [place] [address] Aryan LopezOMaria [place] [id number] Eosinophils (Bld) [#/Vol] 0.04 10*3/uL Normal 0.00-0.50 [facility] Comment on above: Performed By: #### L [id number] #### ONED FSED POCT LAB [address] [place] [id number] Jamar Caldwell D.O. [id number] Eosinophils/100 WBC (Bld) 0.4 % Normal [facility] Comment on above: Performed By: #### L [id number] #### ONED FSED POCT LAB [address] [place] [address] Jamar Caldwell D.O. [id number] Erythrocyte distribution width (RBC) [Ratio] 11.9 % Normal 11.6-14.8 [facility] Comment on above: Performed By: #### L [id number] #### ONED FSED POCT LAB [address] [place] [address] Jamar Caldwell, D.O. [id number] Hematocrit (Bld) [Volume fraction] 47.1 % High 36.0-46.0 [facility] Comment on above: Performed By: #### L [id number] #### ONED FSED POCT LAB [address] [place] [address] Jamar Caldwell D.O. [id number] Hemoglobin (Bld) [Mass/Vol] 15.5 g/dL Normal 12.0-16.0 [facility] Comment on above: Performed By: #### L [id number] #### ONED FSED POCT LAB [address] [place] [address] Jamar Caldwell, D.O. [id number] IG ABSOLUTE 0.02 K/mcL Normal 0.00-0.30 [facility] Comment on above: Performed By: #### L [id number] #### ONED FSED POCT LAB [address] [place] [address] Jamar Caldwell D.O. [id number] IG PERCENT 0.20 % Normal [facility] Comment on above: Result Comment: The IG parameter is the percentage of metamyelocytes, myelocytes and promyelocytes. An immature granulocyte count (IG) of 1% or more suggests the possibility of infection, an IG count of 3% is very likely related to an infection. Performed By: #### L [id number] #### ONED FSED POCT LAB [address] [place] [address] Jamar Caldwell, D.O. [id number] Lymphocytes (Bld) [#/Vol] 0.94 10*3/uL Normal 0.90-4.00 [facility] Comment on above: Performed By: #### L [id number] #### ONED FSED POCT LAB [address] [place] [address] Jamar Caldwell D.O. [id number] Lymphocytes/100 WBC (Bld) 9.3 % Normal [facility] Comment on above: Performed By: #### L [id number] #### ONED FSED POCT LAB [address] [place] [address] Jamar Paulette, D.O. [id number] MCH (RBC) [Entitic mass] 29.2 pg Normal 26.0-34.0 [facility] Comment on above: Performed By: #### L [id number] #### ONED FSED POCT LAB [address] [place] [address] Jamar Caldwell, D.O. [id number] MCV (RBC) [Entitic vol] 88.9 fL Normal 80.0-100.0 [facility] Comment on above: Performed By: #### L [id number] #### ONED FSED POCT LAB [address] [place] [address] Jamar Caldwell D.O. [id number] MEAN CORPUSCULAR HEMOGLOBIN CONC 32.9 g/dL Normal 31.0-37.0 [facility] Comment on above: Performed By: #### L [id number] #### ONED FSED POCT LAB [address] [place] [address] Jamar Caldwell D.O. [id number] Monocytes (Bld) [#/Vol] 0.50 10*3/uL Normal 0.30-0.90 [facility] Comment on above: Performed By: #### L [id number] #### ONED FSED POCT LAB [address] [place] [id number] Jamar Caldwell D.O. [id number] Monocytes/100 WBC (Bld) 4.9 % Normal [facility] Comment on above: Performed By: #### L [id number] #### ONED FSED POCT LAB [address] [place] [address] Jamar Caldwell, D.O. [id number] NEUTROPHILS ABSOLUTE COUNT 8.61 K/mcL High 1.70-7.00 [facility] Comment on above: Performed By: #### L [id number] #### ONED FSED POCT LAB [address] [place] [address] Jamar Caldwell, D.O. [id number] Neutrophils/100 WBC (Bld) 85.1 % Normal [facility] Comment on above: Performed By: #### L [id number] #### ONED FSED POCT LAB [address] [place] [address] Jamar Caldwell, D.O. [id number] Platelet mean volume (Bld) [Entitic vol] 10.2 fL Normal 9.4-12.4 [facility] Comment on above: Performed By: #### L [id number] #### ONED FSED POCT LAB [address] [place] [address] Jamar Paulette, D.O. [id number] Platelets (Bld) [#/Vol] 243 10*3/uL Normal 150-400 [facility] Comment on above: Performed By: #### L [id number] #### ONED FSED POCT LAB [address] [place] [address] Jamar Caldwell D.O. [id number] RBC (Bld) [#/Vol] 5.30 10*6/uL High 4.00-5.20 [facility] Comment on above: Performed By: #### L [id number] #### ONED FSED POCT LAB [address] [place], [place] [address] Jamar Caldwell D.O. [id number] WBC (Bld) [#/Vol] 10.12 10*3/uL Normal 4.50-11.00 [facility] Comment on above: Performed By: #### L [id number] #### ONED FSED POCT LAB [address] [place], [place] [address] Jamar Caldwell D.O. [id number] LIPID PANEL, STANDARD 07-23 Cholesterol [Mass/Vol] 208 mg/dL High <200 [facility] Comment on above: Performed By: #### 7 [id number] #### [facility] [place] [address] Oil Program Compliance Specialist: Guicho Buckley MD Cholesterol in HDL [Mass/Vol] 60 mg/dL Normal > OR = 50 [facility] Comment on above: Performed By: #### 7 600 #### [facility] [place] [address] Oil Program Compliance Specialist: Guicho Buckley MD Cholesterol in LDL [Mass/Vol] 131 mg/dL High [facility] Comment on above: Result Comment: Refe rence range: <100 Desirable range <100 mg/dL for primary prevention; <70 mg/dL for patients with CHD or diabetic patients with > or = 2 CHD risk factors. LDL-C is now calculated using the Aldo-Jose calculation, which is a validated novel method providing better accuracy than the Friedewald equation in the estimation of LDL-C. Aldo FERNANDEZ et al. YANIV. 2013;310(19): 5857-1322 (http://education.[employer].ExtendEvent/faq/XPC974) Performed By: #### 7 600 #### [facility] [facility] [place] [address] Oil Program Compliance Specialist: Guicho Buckley MD Cholesterol.total/Ch olesterol in HDL [Mass ratio] 3.5 {ratio} Normal <5.0 [facility] Comment on above: Performed By: #### 7 600 #### [facility] [address], [address] [place] [address] Oil Program Compliance Specialist: Guicho Buckley MD NON HDL CHOLESTEROL 148 mg/dL (calc) High <130 [facility] Comment on above: Result Comment: For patients with diabetes plus 1 major ASCVD risk factor, treating to a non-HDL-C goal of <100 mg/dL (LDL-C of <70 mg/dL) is considered a therapeutic option. Performed By: #### 7 600 #### [facility] [address], [address] [place] [address] Oil Program Compliance Specialist: Guicho Buckley MD Triglyceride [Mass/Vol] 73 mg/dL Normal <150 [facility] Comment on above: Performed By: #### 7 600 #### [facility] [address], [address] [place] [address] Oil Program Compliance Specialist: Guicho Buckley MD CULTURE, URINE, ROUTINEon CULTURE, URINE, ROUTINE SEE NOTE Normal [facility] Comment on above: Result Comment: CULTURE, URINE, ROUTINE Micro Number: [id number] Test Status: Final Specimen Source: Urine Specimen Quality: Adequate Result: 50,000-100,000 CFU/mL of Non-uropathogenic Gram positive organism May represent colonizers from external and internal genitalia. No further testing (including susceptibility) will be performed. Performed By: #### 3 95 #### [facility] [place] [address] Oil Program Compliance Specialist: Guicho Buckley MD CBC (INCLUDES DIFF/PLT)on Basophils (Bld) [#/Vol] 0.028 10*3/uL Normal 0-200 [facility] Comment on above: Performed By: #### 6 399, [id number] #### [facility] [address], [address] [place] [address] Oil Program Compliance Specialist: Guicho Buckley MD Basophils/100 WBC (Bld) 0.5 % Normal [facility] Comment on above: Performed By: #### 6 399, 65562 #### [facility] of [address], [address] [place] [address] Oil Program Compliance Specialist: Guicho Buckley MD Eosinophils (Bld) [#/Vol] 0.061 10*3/uL Normal 15-500 [facility] Comment on above: Performed By: #### 6 399, 91287 #### [facility] of [address], [address] [place] [address] Oil Program Compliance Specialist: Guicho Buckley MD Eosinophils/100 WBC (Bld) 1.1 % Normal [facility] Comment on above: Performed By: #### 6 399, 57396 #### [facility] of [place] [address] Oil Program Compliance Specialist: Guicho Buckley MD Erythrocyte distribution width (RBC) [Ratio] 12.1 % Normal 11.0-15.0 [facility] Comment on above: Performed By: #### 6 399, 55556 #### [facility] [place] [address] Oil Program Compliance Specialist: Guicho Buckley MD Hematocrit (Bld) [Volume fraction] 42.0 % Normal 35.0-45.0 [facility] Comment on above: Performed By: #### 6 399, 11792 #### [facility] [place] [address] Oil Program Compliance Specialist: Guicho Buckley MD Hemoglobin (Bld) [Mass/Vol] 14.1 g/dL Normal 11.7-15.5 [facility] Comment on above: Performed By: #### 6 399, 64425 #### [facility] [place] [address] Oil Program Compliance Specialist: Guicho Buckley MD Lymphocytes (Bld) [#/Vol] 1.782 10*3/uL Normal 850-3900 [facility] Comment on above: Performed By: #### 6 399, 28764 #### [facility] [place] [address] Oil Program Compliance Specialist: Guicho Buckley MD Lymphocytes/100 WBC (Bld) 32.4 % Normal [facility] Comment on above: Performed By: #### 6 399, 81434 #### [facility] [place] [address] Oil Program Compliance Specialist: Guicho Buckley MD MCH (RBC) [Entitic mass] 29.4 pg Normal 27.0-33.0 [facility] Comment on above: Performed By: #### 6 399, 91967 #### [facility] [place] [address] Oil Program Compliance Specialist: Guicho Buckley MD MCHC (RBC) [Mass/Vol] 33.6 g/dL Normal 32.0-36.0 [facility] Comment on above: Result Comment: For adults, a slight decrease in the calculated MCHC value (in the range of 30 to 32 g/dL) is most likely not clinically significant; however, it should be interpreted with caution in correlation with other red cell parameters and the patient's clinical condition. Performed By: #### 6 399, 81811 #### [facility] [place] [address] Oil Program Compliance Specialist: Guicho Buckley MD MCV (RBC) [Entitic vol] 87.5 fL Normal 80.0-100.0 [facility] Comment on above: Performed By: #### 6 399, 53687 #### [facility] [place] [address] Oil Program Compliance Specialist: Guicho Buckley MD Monocytes (Bld) [#/Vol] 0.33 10*3/uL Normal 200-950 [facility] Comment on above: Performed By: #### 6 399, 41866 #### [facility] [place] [address] Oil Program Compliance Specialist: Guicho Buckley MD Monocytes/100 WBC (Bld) 6.0 % Normal [facility] Comment on above: Performed By: #### 6 399, 94852 #### [facility] [place] [address] Oil Program Compliance Specialist: Guicho Buckley MD Neutrophils (Bld) [#/Vol] 3.3 10*3/uL Normal 7661-9371 [facility] Comment on above: Performed By: #### 6 399, 94705 #### [facility] of [place] [address] Oil Program Compliance Specialist: Guicho Buckley MD Neutrophils/100 WBC (Bld) 60 % Normal [facility] Comment on above: Performed By: #### 6 399, 65422 #### [facility] [place] [address] Oil Program Compliance Specialist: Guicho Buckley MD Platelet mean volume (Bld) [Entitic vol] 11.8 fL Normal 7.5-12.5 [facility] Comment on above: Performed By: #### 6 399, 28499 #### [facility] [place] [address] Oil Program Compliance Specialist: Guicho Buckley MD Platelets (Bld) [#/Vol] 292 10*3/uL Normal 140-400 [facility] Comment on above: Performed By: #### 6 399, 49785 #### [facility] [place] [address] Oil Program Compliance Specialist: Guicho Buckley MD RBC (Bld) [#/Vol] 4.80 10*6/uL Normal 3.80-5.10 [facility] Comment on above: Performed By: #### 6 399, 75849 #### [facility] [place] [address] Oil Program Compliance Specialist: Guicho Buckley MD WBC (Bld) [#/Vol] 5.5 10*3/uL Normal 3.8-10.8 [facility] Comment on above: Performed By: #### 6 399, 76576 #### [facility] of [place] [address] Oil Program Compliance Specialist: Guicho Buckley MD CBC Auto Differentialon 07-23 Basophils (Bld) [#/Vol] 28 10*3/uL [facility] Basophils/100 WBC (Bld) 0.5 % [facility] Eosinophils (Bld) [#/Vol] 61 10*3/uL [facility] Eosinophils/100 WBC (Bld) 1.1 % [facility] Erythrocyte distribution width (RBC) [Ratio] 12.1 % 11.0 - 15.0 % [facility] Hematocrit (Bld) [Volume fraction] 42 % 35.0 - 45.0 % [facility] Hemoglobin (Bld) [Mass/Vol] 14.1 g/dL 11.7 - 15.5 g/dL [facility] Lymphocytes (Bld) [#/Vol] 1782 10*3/uL [facility] Lymphocytes/100 WBC (Bld) 32.4 % [facility] MCH (RBC) [Entitic mass] 29.4 pg 27.0 - 33.0 pg [facility] MCHC (RBC) [Mass/Vol] 33.6 g/dL 32.0 - 36.0 g/dL [facility] Comment on above: For adults, a slight decrease in the calculated MCHC value (in the range of 30 to 32 g/dL) is most likely not clinically significant; however, it should be interpreted with caution in correlation with other red cell parameters and the patient's clinical condition. MCV (RBC) [Entitic vol] 87.5 fL 80.0 - 100.0 fL [facility] Monocytes (Bld) [#/Vol] 330 10*3/uL [facility] Monocytes/100 WBC (Bld) 6 % [facility] Neutrophils (Bld) [#/Vol] 3300 10*3/uL [facility] Neutrophils/100 WBC (Bld) 60 % [facility] Platelet mean volume (Bld) [Entitic vol] 11.8 fL 7.5 - 12.5 fL [facility] Platelets (Bld) [#/Vol] 292 10*3/uL [facility] RBC (Bld) [#/Vol] 4.8 10*6/uL [facility] alth WBC (Bld) [#/Vol] 5.5 10*3/uL [facility] FASTING:NO FASTING: NO [facility] COMPREHENSIVE METABOLIC PANE L W/ANION GAPon 08-05-2024 Albumin [Mass/Vol] 4.6 g/dL Normal 3.6-5.1 [facility] Comment on above: Order Comment: FASTI NG:NO FASTING: NO Performed By: #### 6 399, [id number] #### [facility] [place] [address] Oil Program Compliance Specialist: Guicho Buckley MD ALP [Catalytic activity/Vol] 62 U/L Normal 31-125 [facility] Comment on above: Order Comment: FASTI NG:NO FASTING: NO Performed By: #### 6 399, 79031 #### [facility] [place] [address] Oil Program Compliance Specialist: Guicho Buckley MD ALT [Catalytic activity/Vol] 21 U/L Normal 6-29 [facility] Comment on above: Order Comment: FASTI NG:NO FASTING: NO Performed By: #### 6 399, 59877 #### [facility] [place] [address] Oil Program Compliance Specialist: Guicho Buckley MD AST [Catalytic activity/Vol] 14 U/L Normal 10-30 [facility] Comment on above: Order Comment: FASTI NG:NO FASTING: NO Performed By: #### 6 399, 43506 #### [facility] [place] [address] Oil Program Compliance Specialist: Guicho Buckley MD Bilirubin [Mass/Vol] 0.4 mg/dL Normal 0.2-1.2 [facility] Comment on above: Order Comment: FASTI NG:NO FASTING: NO Performed By: #### 6 399, 02593 #### [facility] [place] [address] Oil Program Compliance Specialist: Giucho Buckley MD Calcium [Mass/Vol] 9.4 mg/dL Normal 8.6-10.2 [facility] Comment on above: Order Comment: FASTI NG:NO FASTING: NO Performed By: #### 6 399, 23244 #### [facility] [place] [address] Oil Program Compliance Specialist: Guicho Buckley MD Chloride [Moles/Vol] 103 mmol/L Normal 98-110 [facility] Comment on above: Order Comment: FASTI NG:NO FASTING: NO Performed By: #### 6 399, 22079 #### [facility] [place] [address] Oil Program Compliance Specialist: Guicho Buckley MD CO2 [Moles/Vol] 23 mmol/L Normal 20-32 [facility] Comment on above: Order Comment: FASTI NG:NO FASTING: NO Performed By: #### 6 399, 44274 #### [facility] [address], [address] [place] [address] Oil Program Compliance Specialist: Guicho Buckley MD Creatinine [Mass/Vol] 0.76 mg/dL Normal 0.50-0.96 [facility] Comment on above: Order Comment: FASTI NG:NO FASTING: NO Performed By: #### 6 399, 76836 #### [facility] [place] [address] Oil Program Compliance Specialist: Guicho Buckley MD ELECTROLYTE BALANCE 12 mmol/L (calc) Normal 7-17 [facility] Comment on above: Order Comment: FASTI NG:NO FASTING: NO Performed By: #### 6 399, 40405 #### [facility] [place] [address] Oil Program Compliance Specialist: Guicho Buckley MD GFR/1.73 sq M.predicted among non-blacks MDRD (S/P/Bld) [Vol rate/Area] 112 mL/min/{1.73_m2} Normal > OR = 60 [facility] Comment on above: Order Comment: FASTI NG:NO FASTING: NO Performed By: #### 6 399, 26472 #### [facility] [place] [address] Oil Program Compliance Specialist: Guicho Buckley MD Glucose [Mass/Vol] 120 mg/dL Normal 65-139 [facility] Comment on above: Order Comment: FASTI NG:NO FASTING: NO Result Comment: Non-fasting reference interval For someone without known diabetes, a glucose value between 100 and 125 mg/dL is consistent with prediabetes and should be confirmed with a follow-up test. Performed By: #### 6 399, 14346 #### [facility] [place] [address] Oil Program Compliance Specialist: Guicho Buckley MD Potassium [Moles/Vol] 4.0 mmol/L Normal 3.5-5.3 [facility] Comment on above: Order Comment: FASTI NG:NO FASTING: NO Performed By: #### 6 399, 62144 #### [facility] [place] [address] Oil Program Compliance Specialist: Guicho Buckley MD Protein [Mass/Vol] 6.9 g/dL Normal 6.1-8.1 [facility] Comment on above: Order Comment: FASTI NG:NO FASTING: NO Performed By: #### 6 399, 96931 #### [facility] [place] [address] Oil Program Compliance Specialist: Guicho Buckley MD Sodium [Moles/Vol] 138 mmol/L Normal 135-146 [facility] Comment on above: Order Comment: FASTI NG:NO FASTING: NO Performed By: #### 6 399, 95017 #### [facility] [place] [address] Oil Program Compliance Specialist: Guicho Buckley MD Urea nitrogen [Mass/Vol] 13 mg/dL Normal 7-25 [facility] Comment on above: Order Comment: FASTI NG:NO FASTING: NO Performed By: #### 6 399, 46462 #### [facility] [place] [address] Oil Program Compliance Specialist: Guicho Buckley MD Comprehensive metabolic 2000 panelon 08-05-2024 Albumin [Mass/Vol] 4.6 g/dL 3.6 - 5.1 g/dL [facility] ALP [Catalytic activity/Vol] 62 U/L 31 - 125 U/L [facility] ALT [Catalytic activity/Vol] 21 U/L 6 - 29 U/L [facility] Anion gap [Moles/Vol] 12 mmol/L [facility] AST [Catalytic activity/Vol] 14 U/L 10 - 30 U/L [facility] Bilirubin [Mass/Vol] 0.4 mg/dL 0.2 - 1 .2 mg/dL [facility] Calcium [Mass/Vol] 9.4 mg/dL 8.6 - 10. 2 mg/dL [facility] Chloride [Moles/Vol] 103 mmol/L 98 - 11 0 mmol/L [facility] CO2 [Moles/Vol] 23 mmol/L 20 - 32 mmol/L [facility] Creatinine [Mass/Vol] 0.76 mg/dL 0.50 - 0.96 mg/dL [facility] GFR/1.73 sq M.predicted among non-blacks MDRD (S/P/Bld) [Vol rate/Area] 112 mL/min/{1.73_m2} > OR = 60 mL/min/1.73m2 [facility] Glucose [Mass/Vol] 120 mg/dL 65 - 139 mg/dL [facility] Comment on above: Non-fasting reference interval For someone without known diabetes, a glucose value between 100 and 125 mg/dL is consistent with prediabetes and should be confirmed with a follow-up test. Potassium [Moles/Vol] 4 mmol/L 3.5 - 5.3 mmol/L [facility] Protein [Mass/Vol] 6.9 g/dL 6.1 - 8.1 g/dL [facility] Sodium [Moles/Vol] 138 mmol/L 135 - 146 mmol/L [facility] Urea nitrogen [Mass/Vol] 13 mg/dL 7 - 25 mg/dL [facility] FASTING:NO FASTING: NO [facility] TSH DL <= 0.005 mIU/L Qnon 0 08-05-2024 TSH Qn 1.46 m[IU]/L mIU/L [facility] Comment on above: Reference Range > or = 20 Years 0.40-4.50 Ranges First trimester 0.26-2.66 Second trimester 0.55-2.73 Third trimester 0.43-2.91 FASTING:NO FASTING: NO [facility] TSH W/REFLEX TO FT4on 2024 TSH W/REFLEX TO FT4 1.46 mIU/L Normal [facility] Comment on above: Result Comment: Refe rence Range > or = 20 Years 0.40-4.50 Ranges First trimester 0.26-2.66 Second trimester 0.55-2.73 Third trimester 0.43-2.91 Performed By: #### 6 560, 71844 #### [facility] [address], [address] [place] [address] Oil Program Compliance Specialist: Guicho Buckley MD HCG ( test) Ql (U)O rdered By: Heena Byrne on 08-04-2024 Internal Control Pass [facility] Interpretation and review of laboratory results Normal [facility] POC , UrineOrdered By: Heena Byrne on 08-04-2024 HCG ( test) Ql (U) Negative Negative [facility] Urinalysis macro (dipstick) panel (U)on 08-04-2024 Bilirubin Ql (U) Negative Negative [facility] Glucose Ql (U) Negative Normal, Negative mg/dL [facility] Hemoglobin Ql (U) Trace-intact Abnormal Negative [facility] ealt Interpretation and review of laboratory results Abnormal [facility] Ketones Ql (U) Negative Negative mg/dL [facility] alth Leukocyte esterase Test strip Ql (U) Negative Negative [facility] Nitrite Ql (U) Negative Negative [facility] pH (U) 6 [pH] 5.0 - 7.0 [facility] Protein Ql (U) Negative Negative mg/dL [facility] alth Specific gravity (U) [Rel density] 1.02 1.005 - 1.025 [facility] Urobilinogen Qn (U) 0.2 mg/dL <2.0, 0. 2, Normal, Negative, 1.0, 2.0, <1.0 [facility] ED Prov Noteon 05-14-2024 ED Prov Note [facility] EM[facility]GENCY [facility]PART[facility] ATTENDING NOTE: NAME: Rohan Mccartney CSN: [id number] 23 y.o. PCP: Hayley Rincon CNP History: Chief Complaint: Jaw Pain HPI: The history was obtained from the patient. Rohan is a 23 y.o. female who presents with a chief complaint of Jaw Pain. As per the patient she has pain in the right upper wisdom teeth that has been causing trouble off-and-on at this time for the last 3 to 4 days. No fever no chills no bad taste in the mouth PMHx: Past Medical History: Diagnosis Date Anxiety Bipolar 1 disorder (HCC) Borderline personality disorder (HCC) Depression Irritable bowel syndrome Major depressive disorder Miscarriage within last 12 months Polycystic ovarian disease depression Preeclampsia complicating hypertension PTSD (post-traumatic stress disorder) 08/21/2023 PMSx: Past Surgical History: Procedure Laterality Date adnoids TONSILLECTOMY tubes in ears FAM. Hx: Family History Problem Relation Age of Onset Cancer Mother Depression Mother Stroke Mother Vision loss Mother Mental illness Sister Depression Sister Heart disease Sister Kidney disease Sister Learning disabilities Brother Diabetes Maternal Grandmother Hyperlipidemia Maternal Grandfather Hypertension Maternal Grandfather SOC. Hx: Social History Socioeconomic History Marital status: Single Tobacco Use Smoking status: Former Current packs/day: 0.50 Average packs/day: 0.5 packs/day for 0.5 years (0.3 ttl pk-yrs) Types: Cigarettes Smokeless tobacco: Never Tobacco comments: 2-3 a day Vaping Use Vaping status: Former Substance and Sexual Activity Alcohol use: Not Currently Drug use: Never Sexual activity: Yes Partners: Male control/protection: None Social Determinants of Health Financial Resource Strain: Low Risk (01/25/2023) Overall Financial Resource Strain (CARDIA) Difficulty of Paying Living Expenses: Not hard at all Food Insecurity: No Food Insecurity (01/25/2023) Hunger Vital Sign Worried About Running Out of Food in the Last Year: Never true Ran Out of Food in the Last Year: Never true Transportation Needs: No Transportation Needs (01/25/2023) PRAPARE - Transportation Lack of Transportation (Medical): No Lack of Transportation (Non-Medical): No Physical Activity: Sufficiently Active (01/25/2023) Exercise Vital Sign Days of Exercise per Week: 5 days Minutes of Exercise per Session: 60 min Stress: Stress Concern Present (01/25/2023) [employer] - Occupational Stress Questionnaire Feeling of Stress : Rather much Social Connections: Moderately Isolated (01/25/2023) Social Connection and Isolation Panel [NHANES] Frequency of Communication with Friends and Family: More than three times a week Frequency of Social Gatherings with Friends and Family: Three times a week Attends Voodoo Services: Never Active Member of Clubs or Organizations: No Attends Club or Organization Meetings: Never Marital Status: Living with partner Housing Stability: Low Risk (01/25/2023) Housing Stability Vital Sign Unable to Pay for Housing in the Last Year: No Number of Places Lived in the Last Year: 1 Unstable Housing in the Last Year: No MEDs: Previous Medications Medication Sig carBAMazepine (TEGretol XR) 400 MG 12 hr tablet Take 1 (one) tablet (400 mg total) by mouth 2 (two) times a day . citalopram (CELEXA) 20 MG tablet Take 1 (one) tablet (20 mg total) by mouth nightly . atomoxetine (STRATTERA) 80 MG capsule Take 1 (one) capsule (80 mg total) by mouth daily . cariprazine (VRAYLAR) 1.5 mg capsule Take 1 (one) capsule (1.5 mg total) by mouth daily . ALL: Allergies Allergen Reactions Latex, Natural Rubber Rash Montelukast Other (See Comments) Halucinations Zofran [Ondansetron Hcl] GI Intolerance Latuda [Lurasidone] Other (See Comments) Suicidal Topiramate Other (See Comments) Depression ROS: Review of Systems Positives and pertinent negatives as per HPI. All other systems were reviewed and are negative. Physical Exam: Patient Vitals for the past 24 hrs: BP Temp Pulse Resp SpO2 Height Weight 05/14/242152 117/77 -- -- -- -- -- -- 05/14/242151 -- 97.6 degrees F (36.4 degrees C) 83 16 97 % -- -- 05/14/247 -- -- -- -- -- 5' 1 92.5 kg (204 lb) Physical Exam Vitals and nursing note reviewed. HENT: Mouth/Throat: Mouth: Mucous membranes are moist. Comments: Right upper molar tender to palpation around the gum slight induration and erythema no fluctuation no drainage Pulmonary: Effort: Pulmonary effort is normal. Neurological: Mental Status: She is alert. ED Course / Medical Decision Making: I did personally review Rohan's past medical history, surgical history, social history, as well as family history (when relevant). In this case, I also oversaw the her drug management by reviewing her medication list, all (more content not included)... Normal [facility] MR Brain WO and W contrast L[place] Rayo 02-13-2024 IMPRESSION: Normal MRI of the brain. RADIOLOGY MRI brain with and without contrast, 02/12/2024. HISTORY: Family history of multiple sclerosis. Numbness in hands. Dizziness. COMPARISON: None. TECHNIQUE: Multiplanar, multisequence MRI imaging of the brain with and without contrast. FINDINGS: Paranasal sinuses are clear. Mastoid air cells are clear. Nasopharynx normal. Highway [employer] Engineer spaces are normal. Orbital contents unremarkable. The ventricles are normal in size. No hydrocephalus. No mass effect. No shift of midline. No abnormal signal in the brain. No evidence of demyelination. Cerebellopontine angle cisternal spaces and internal auditory canals appear normal. There are no hemorrhagic lesions. Diffusion images are normal. No evidence of acute ischemic infarction. No pathologic enhancement in the brain. No brain mass. RADIOLOGY Von Miller MD - 02/13/2024 MRI brain with and without contrast, 02/12/2024. HISTORY: Family history of multiple sclerosis. Numbness in hands. Dizziness. COMPARISON: None. TECHNIQUE: Multiplanar, multisequence MRI imaging of the brain with and without contrast. FINDINGS: Paranasal sinuses are clear. Mastoid air cells are clear. Nasopharynx normal. Highway Design Engineer spaces are normal. Orbital contents unremarkable. The ventricles are normal in size. No hydrocephalus. No mass effect. No shift of midline. No abnormal signal in the brain. No evidence of demyelination. Cerebellopontine angle cisternal spaces and internal auditory canals appear normal. There are no hemorrhagic lesions. Diffusion images are normal. No evidence of acute ischemic infarction. No pathologic enhancement in the brain. No brain mass. IMPRESSION IMPRESSION: Normal MRI of the brain. [facility] MRA Head vessels WO contrast on 02-13-2024 IMPRESSION: Normal MRA of the brain. RADIOLOGY MRA brain without contrast, 02/12/2024. HISTORY: Dizziness. Balance issues. COMPARISON: None. TECHNIQUE: Axial 3-D [id number] MRA images obtained through the brain. Multiple reconstructed MIP images obtained. FINDINGS: The distal internal carotid arteries are normal in caliber. Anterior cerebral arteries are normal in caliber. Middle cerebral arteries are normal. Distal vertebral arteries are normal. Basilar artery normal. Cerebellar arteries are patent. Posterior cerebral arteries normal. No intracranial aneurysm. No vascular malformation. RADIOLOGY Von Miller MD - 02/13/2024 MRA brain without contrast, 02/12/2024. HISTORY: Dizziness. Balance issues. COMPARISON: None. TECHNIQUE: Axial 3-D [id number] MRA images obtained through the brain. Multiple reconstructed MIP images obtained. FINDINGS: The distal internal carotid arteries are normal in caliber. Anterior cerebral arteries are normal in caliber. Middle cerebral arteries are normal. Distal vertebral arteries are normal. Basilar artery normal. Cerebellar arteries are patent. Posterior cerebral arteries normal. No intracranial aneurysm. No vascular malformation. IMPRESSION IMPRESSION: Normal MRA of the brain. [facility] MRA Neck vessels WO contrast on 02-13-2024 IMPRESSION: Normal MRA of the neck. RADIOLOGY EXAMINATION: MRI ANG IO NECK WITHOUT CONTRAST HISTORY: Dizziness. Balance issues. Numbness in hands. COMPARISON: None. TECHNIQUE: Axial 2-D and 3-D [id number] MRA images obtained through the neck. Multiple reconstructed MIP images obtained. Carotid stenosis is reported according to NASCET criteria. FINDINGS: The common carotid arteries are normal in caliber. Carotid bifurcations are normal. Internal carotid arteries are normal. Vertebral arteries are normal. No carotid or vertebral artery stenosis. No acute dissection. RADIOLOGY Von Miller MD - 02/13/2024 EXAMINATION: MRI ANGIO NECK WITHOUT CONTRAST HISTORY: Dizziness. Balance issues. Numbness in hands. COMPARISON: None. TECHNIQUE: Axial 2-D and 3-D [id number] MRA images obtained through the neck. Multiple reconstructed MIP images obtained. Carotid stenosis is reported according to NASCET criteria. FINDINGS: The common carotid arteries are normal in caliber. Carotid bifurcations are normal. Internal carotid arteries are normal. Vertebral arteries are normal. No carotid or vertebral artery stenosis. No acute dissection. IMPRESSION IMPRESSION: Normal MRA of the neck. [facility] Neck vessels WO contrast Ordered By: Von Miller on 02-13-2024 [facility] Work Phone: MRI ANGIO NECK WITHOUT CONTR Patricia 02-13-2024 MRI ANGIO NECK WITHOUT CONTRAST EXAMINATION: MRI ANGIO NECK WITHOUT CONTRAST HISTORY: Dizziness. Balance issues. Numbness in hands. COMPARISON: None. TECHNIQUE: Axial 2-D and 3-D [id number] MRA images obtained through the neck. Multiple reconstructed MIP images obtained. Carotid stenosis is reported according to NASCET criteria. FINDINGS: The common carotid arteries are normal in caliber. Carotid bifurcations are normal. Internal carotid arteries are normal. Vertebral arteries are normal. No carotid or vertebral artery stenosis. No acute dissection. IMPRESSION: Normal MRA of the neck. Normal [facility] MRI ARTERIOGRAM BRAIN WITHOU T CONTRASTon 02-13-2024 MRI ARTERIOGRAM BRAIN WITHOUT CONTRAST MRA brain without contrast, 02/12/2024. HISTORY: Dizziness. Balance issues. COMPARISON: None. TECHNIQUE: Axial 3-D [id number] MRA images obtained through the brain. Multiple reconstructed MIP images obtained. FINDINGS: The distal internal carotid arteries are normal in caliber. Anterior cerebral arteries are normal in caliber. Middle cerebral arteries are normal. Distal vertebral arteries are normal. Basilar artery normal. Cerebellar arteries are patent. Posterior cerebral arteries normal. No intracranial aneurysm. No vascular malformation. IMPRESSION: Normal MRA of the brain. Normal [facility] MRI BRAIN WITH AND WITHOUT C ONTRASTon 02-13-2024 MRI BRAIN WITH AND WITHOUT CONTRAST MRI brain with and without contrast, 02/12/2024. HISTORY: Family history of multiple sclerosis. Numbness in hands. Dizziness. COMPARISON: None. TECHNIQUE: Multiplanar, multisequence MRI imaging of the brain with and without contrast. FINDINGS: Paranasal sinuses are clear. Mastoid air cells are clear. Nasopharynx normal. Highway Design Engineer spaces are normal. Orbital contents unremarkable. The ventricles are normal in size. No hydrocephalus. No mass effect. No shift of midline. No abnormal signal in the brain. No evidence of demyelination. Cerebellopontine angle cisternal spaces and internal auditory canals appear normal. There are no hemorrhagic lesions. Diffusion images are normal. No evidence of acute ischemic infarction. No pathologic enhancement in the brain. No brain mass. IMPRESSION: Normal MRI of the brain. Normal [facility] No Panel InformationOrdered By: Von Miller on 02-13-2024 [facility] [email or web address] Work Phone: [phone] FOLATEon 02-12-2024 Cobalamin (Vitamin B12) [Mass/Vol] 276 pg/mL Normal [id number] [facility] Comment on above: Performed By: #### B 12F, CREAT #### Testing performed at [facility] [address] [place] [address] FOLATE 8.0 NG/ML Normal 2.56-20.0 [facility] Comment on above: Performed By: #### B 12F, CREAT #### Testing performed at [address] [address] CREATININE,SERUMon Creatinine [Mass/Vol] 1.00 mg/dL Normal 0.70-1.20 [facility] Comment on above: Performed By: #### B 12F, CREAT #### Testing performed at [address] [address] EST. GFR, 88 ml/min/1.73sq.m [facility] Comment on above: Performed By: #### B 12F, CREAT #### Testing performed at [address] [address] EST. GFR,Non 72 ml/min/1.73sq.m [facility] Comment on above: Performed By: #### B 12F, CREAT #### Testing performed at [address] [address] GFR Information Average GFR for 20-2 9 years old = 116. Normal [facility] Comment on above: Result Comment: Nutrition Instructor andrade Kidney disease, GFR = <60. Kidney failure, GFR = <15. The GFR estimate is not adjusted for extreme body surface area or acute process, nor has it been validated for women or ethnic groups other than and . Performed By: #### B 12F, CREAT #### Testing performed at [address] [address] HEMOGLOBIN A1Con 02-12-2024 Glucose [Mass/Vol] 97 mg/dL Normal [facility] Comment on above: Performed By: #### H A1CT #### Testing performed at [address] [address] HbA1c (Bld) [Mass fraction] 5.0 % Normal 0-6 [facility] Comment on above: Result Comment: NORMAL <5.7% PREDIABETES 5.7-6.4% DIABETES 6.5% OR HIGHER Performed By: #### H A1CT #### Testing performed at [address] [address] MR Brain WO and W contrast I Girma 02-12-2024 Radiology Study observation (narrative) [facility] MRA Head vessels WO contrast on 02-12-2024 Radiology Study observation (narrative) [employer] [facility] MRA Neck vessels WO contrast on 02-12-2024 Radiology Study observation (narrative) [facility] Cardiac echo study Procedure on 12-26-2023 APPR MORENA REPORT Other Information Study Quality: Good Conclusion Normal LV and RV size and function, estimated EF 65%. No significant valvular disease. Left Ventricle The left ventricle is normal. Left ventricular systolic function is normal. The posterior wall thickness is normal. The septal thickness is mildly increased. There is normal LV segmental wall motion. The left ventricular diastolic function is normal. LVEF is 65%. Right Ventricle The right ventricle is normal size. The right ventricular systolic function is normal. Atria The left atrium is normal. The right atrium size is normal. Aortic Valve The aortic valve is normal in structure. There is no aortic valvular stenosis. No aortic regurgitation is present. Mitral Valve The mitral valve is normal in structure. There is no mitral valve regurgitation noted. Tricuspid Valve The tricuspid valve is normal in structure. There is trace tricuspid valve regurgitation noted. Pulmonic Valve The pulmonary valve is normal in structure. There is no pulmonic valvular regurgitation. Great Vessels The aortic root is normal in size. The ascending aorta size is normal. Pericardium There is no pericardial effusion. EXAM: Comprehensive 2D, Doppler, and color-flow Echocardiogram Imaging system used: [employer] Vivid E9 2D Dimensions IVSd 1.0 cm F: 0.6-0.9 LVEF (Jiménez's) 67.24 % F: 54 - 74 PWd 0.8 cm F: 0.6 - 0.9 EF AP4-a2DQ 65.85 % LVDd 3.9 cm F: 3.8 - 5.2 EF AP2-a2DQ 68.10 % LVDs 2.68 cm F: 2.2 - 3.5 EF BP-a2DQ 67.24 % Aortic Root 2.43 cm F: 2.7 - 3.3 LVESV 22 mL Aortic Root Index 1.3 cm/m2 LVEDV 68.03 mL F: 46 - 106 Ascending Aorta 2.52 cm F: 2.3 - 3.1 LV Volume Index 36.58 mL/m2 F: 29 - 61 Ascending Aorta Index: 1.4 cm/m2 LA Volume 30.3 mL Left Atrium 2.90 cm F: 2.7 - 3.8 LA Volume Index 16.29 mL/m2 (M/F) 16-34 LVOT 2.15 cm (M/F) 1.5-2.5 RV Major 1.69 cm TAPSE 1.8 >1.7 cm RV Minor 7.32 cm IVC 1.3 cm RVIDd 1.95 cm (M/F) 2.5-4.1 Right Atrium 3.2 cm (M/F) 2.9-4.5 LV Diastology E/A Ratio 0.9 Septal E' 0.09 (>=.07 m/s) LAT E' 0.15 (>=.10 m/s) E/LAT E' Ratio 4.75 (<=14) E/E AVG 5.86 Septal E/E' 7.65 Aortic Valve LVOT Max 1.10 (0.7-1.1 m/s) LVOT VTI 22.61 cm LVOT Peak GR 4.82 mmHg LVOT Mean GR 2.90 mmHg AV DI 1.31 (>0.25) AoV Peak Zafar. 1.13 (0.5-1.3 m/s) AV Vmean 0.85 m/s AO Peak GR. 5.13 mmHg AO Mean GR. 3.17 (<5 mmHg) AO VTI 17.3 (18-25 cm) MARY (VTI) 4.73 (2.5-4.5 cm2) Mitral Valve MV E Max Zafar. 0.7 (0.4-1.3 m/s) MV A Velocity 0.79 (0.4-1.3 m/s) E/A Ratio 0.89 MV PHT 50.58 ms MVA PHT 4.35 cm2 MV Dec Nash 447.83 cm/s2 MV Decel. Time 156.93 (160-240 ms) Pulmonary Valve PV Peak Velocity 1.0 (0.5-1.5 m/s) MA End VMAX 1.7 m/s PV maxPG 4.2 mmHg PV Vmax 1.0 m/s MA End PG 8.04 mmHg Tricuspid Valve TR P. Velocity 2.26 m/s RAP Estimate 3 mmHg RVSP 23.42 mmHg TR maxPG 20.42 mmHg S' 0.14 m/s CARDIOLOGY Loreto Art MD - 12/26/2023 APPROVED REPORT Other Information Study Quality: Good Conclusion Normal LV and RV size and function, estimated EF 65%. No significant valvular disease. Left Ventricle The left ventricle is normal. Left ventricular systolic function is normal. The posterior wall thickness is normal. The septal thickness is mildly increased. There is normal LV segmental wall motion. The left ventricular diastolic function is normal. LVEF is 65%. Right Ventricle The right ventricle is normal size. The right ventricular systolic function is normal. Atria The left atrium is normal. The right atrium size is normal. Aortic Valve The aortic valve is normal in structure. There is no aortic valvular stenosis. No aortic regurgitation is present. Mitral Valve The mitral valve is normal in structure. There is no mitral valve regurgitation noted. Tricuspid Valve The tricuspid valve is normal in structure. There is trace tricuspid valve regurgitation noted. Pulmonic Valve The pulmonary valve is normal in structure. There is no pulmonic valvular regurgitation. Great Vessels The aortic root is normal in size. The ascending aorta size is normal. Pericardium There is no pericardial effusion. EXAM: Comprehensive 2D, Doppler, and color-flow Echocardiogram Imaging system used: [employer] E9 2D Dimensions IVSd 1.0 cm F: 0.6-0.9LVEF (Jiménez's)67.24 % F: 54 - 74 PWd 0.8 cm F: 0.6 - 0.9EF AP4-a2DQ65.85 % LVDd 3.9 cm F: 3.8 - 5.2EF AP2-a2DQ68.10 % LVDs 2.68 cm F: 2.2 - 3.5EF BP-a2DQ67.24 % Aortic Root 2.43 cm F: 2.7 - 3.4OLGIE65 mL Aortic Root Index1.3 cm/t4WKWZK21.03 mL F: 46 - 106 Ascending Aorta 2.52 cm F: 2.3 - 3.1LV Volume Index36.58 mL/m2 F: 29 - 61 Ascending Aorta Index: 1.4 cm/m2LA Sabouy45.3 mL Left Atrium 2.90 cm F: 2.7 - 3.8LA Volume Index16.29 mL/m2 (M/F) 16-34 LVOT2.15 cm (M/F) 1.5-2.5RV Major 1.69 cm TAPSE 1.8 >1.7 cmRV Minor7.32 cm IVC1.3 cmRVIDd1.95 cm (M/F) 2.5-4.1 Right Atrium 3.2 cm (M/F) 2.9-4.5 LV Diastology E/A Ratio 0.9Septal E'0.09 (>=.07 m/s) LAT E'0.15 (>=.10 m/s)E/LAT E' Ratio4.75 (<=14) E/E AVG 5.86Septal E/E'7.65 Aortic Valve LVOT Max1.10 (0.7-1.1 m/s)LVOT VTI22.61 cm LVOT Peak GR4.82 mmHgLVOT Mean GR2.90 mmHg AV DI1.31 (>0.25)AoV Peak Zafar.1.13 (0.5-1.3 m/s) AV Vmean 0.85 m/Bella Peak GR.5.13 mmHg AO Mean GR.3.17 (<5 mmHg)AO VTI17.3 (18-25 cm) MARY (VTI)4.73 (2.5-4.5 cm2) Mitral Valve MV E Max Zafar.0.7 (0.4-1.3 m/s)MV A Velocity0.79 (0.4-1.3 m/s) E/A Ratio0.89MV PHT50.58 ms MVA PHT4.35 cm2MV Dec Nash 447.83 cm/s2 MV Decel. Ildw830.93 (160-240 ms) Pulmonary Valve PV Peak Velocity1.0 (0.5-1.5 m/s)MA End VMAX1.7 m/s PV maxPG4.2 mmHgPV Vmax1.0 m/s MA End PG 8.04 mmHg Tricuspid Valve TR P. Velocity2.26 m/sRAP Estimate3 mmHg RVSP23.42 mmHgTR maxPG 20.42 mmHg S'0.14 m/s [facility] Radiology Study observation (narrative) [facility] XR Chest PA and Lateralon IMPRESSION: No acute infiltrate or evidence of cardiac decompensation. There is no evidence of tuberculosis. The overall appearance of the chest is unchanged. RADIOLOGY EXAM: XR CHEST PA AN D LATERAL HISTORY: routine . Assess for TB. COMPARISON: 11/02/2017. TECHNIQUE: Upright PA and lateral chest x-ray FINDINGS: The heart is not enlarged and the vasculature is not distended. No acute infiltrate, effusion or pneumothorax is identified. The osseous structures are grossly intact. RADIOLOGY Holger Simons MD - 06/05/2023 EXAM: XR CHEST PA AND LATERAL HISTORY: routine . Assess for TB. COMPARISON: 11/02/2017. TECHNIQUE: Upright PA and lateral chest x-ray FINDINGS: The heart is not enlarged and the vasculature is not distended. No acute infiltrate, effusion or pneumothorax is identified. The osseous structures are grossly intact. IMPRESSION IMPRESSION: No acute infiltrate or evidence of cardiac decompensation. There is no evidence of tuberculosis. The overall appearance of the chest is unchanged. [facility] Radiology Study observation (narrative) [facility] XR Chest PA and LateralOrder ed By: Holger Simons on 06-05-[address] [facility] Work Phone: US THYROID ONLYon 03-31-2023 US THYROID ONLY EXAMINATION: US THYROID ONLY HISTORY: ORDERING SYSTEM PROVIDED HISTORY: fatigue, weight gain, dizziness, brain fog, TECHNOLOGIST PROVIDED HISTORY: Illness/Other Reason for exam: weight gain, mood swings, vision issues Cancer History: u Surgery, RadiationHistory: u Encounter Type: Initial Additional signs and symptoms: ORDERING SYSTEM PROVIDED DIAGNOSIS CODES: R89.9 Abnormal laboratory test result R63.5 Weight gain R53.83 Fatigue, unspecified type COMPARISON: None. FINDINGS: Grayscale and color sonography of the thyroid. Right thyroid lobe measures 5.0 x 2.0 x 1.4 cm. Left thyroid lobe measures 5.3 x 1.4 x 3.4 cm. Thyroid isthmus measures 0.4 cm. The thyroid is homogeneous with normal vascularity. The thyroid is slightly enlarged. No thyroid nodules are present. An isoechoic circumscribed nodule measuring 0.9 x 0.6 x 0.6 cm is deep to the midpole thyroid. IMPRESSION: 1. Slightly enlarged thyroid with normal vascularity and homogeneous echotexture. No reproducible nodules. 2. Isoechoic circumscribed 0.9 x 0.6 x 0.6 cm nodule posterior to the thyroid may represent a parathyroid gland. Correlation with serum PTH and calcium levels may be of benefit. [employer] Workstation ID: [id number] Dictated by: TRAVON JIMENEZ on SunMar 31, 2023 6:59:32 PM EDT Transcribed by: PING HERNANDEZ on SunMar 31, 2023 7:40:01 PM EDT Finalized by: TRAVON JIMENEZ on SunApr 03, 2023 2:04:28 AM EDT Normal [facility] Comment on above: Order Comment: Injur y/Trauma or Illness?:Illness/Other How long have you had these symptoms (acute/chronic)?:Acute Reason for exam?:weight gain, mood swings, vision issues History of cancer?:u Surgeries, chemotherapy, or radiation?:u Type of Exam?:Initial Additional signs and symptoms?: CT Abdomen and Pelvis W cont rast Lina 03-22-2023 IMPRESSION: 1. No acute process in the abdomen or pelvis. 2. Normal appendix. 3. Fatty liver and hepatosplenomegaly. 4. Cholelithiasis. 5. Right renal cyst. 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 RADIOLOGY CT ABDOMEN AND PELVI S WITH CONTRAST: INDICATION: Right lower quadrant pain, history of IBS. COMPARISON: CT abdomen and pelvis 11/08/2017. TECHNIQUE: Helical CT images of the abdomen and pelvis were obtained after the administration of intravenous contrast. Dose reduction techniques were achieved by using automated exposure control and/or adjustment of mA and/or kV according to patient size and/or use of iterative reconstruction technique. FINDINGS: LOWER CHEST: Normal. LIVER: Mild to moderate low attenuation suggestive of fatty infiltration. Enlarged measuring 20 cm in length. GALLBLADDER AND BILIARY SYSTEM: 1.8 cm gallstone. SPLEEN: Mildly enlarged measuring 13 cm in length. PANCREAS: Normal. ADRENAL GLANDS: Normal. KIDNEYS AND URETERS: 2 cm cyst in the lower pole of the right kidney, 1.3 cm cyst in the midpole of the right kidney and small hypodensity in the lower pole of the right kidney, likely a cyst but too small to characterize. VASCULATURE: Normal. RETROPERITONEUM AND LYMPH NODES: Normal, with no lymphadenopathy. GASTROINTESTINAL TRACT/MESENTERY: Normal appearance of the stomach, small and large bowel. Normal mesentery/peritoneum. Normal appendix. BLADDER: Normal. REPRODUCTIVE SYSTEM: Normal uterus and adnexa. BODY WALL: Normal. BONES: Sclerosis about the sacroiliac joints bilaterally involving the iliac bones and sacrum suggestive of osteitis condensans ilii. This appears slightly progressed compared to the previous study. RADIOLOGY Varinder Avalos MD - 03/22/2023 CT ABDOMEN AND PELVIS WITH CONTRAST: INDICATION: Right lower quadrant pain, history of IBS. COMPARISON: CT abdomen and pelvis 11/08/2017. TECHNIQUE: Helical CT images of the abdomen and pelvis were obtained after the administration of intravenous contrast. Dose reduction techniques were achieved by using automated exposure control and/or adjustment of mA and/or kV according to patient size and/or use of iterative reconstruction technique. FINDINGS: LOWER CHEST: Normal. LIVER: Mild to moderate low attenuation suggestive of fatty infiltration. Enlarged measuring 20 cm in length. GALLBLADDER AND BILIARY SYSTEM: 1.8 cm gallstone. SPLEEN: Mildly enlarged measuring 13 cm in length. PANCREAS: Normal. ADRENAL GLANDS: Normal. KIDNEYS AND URETERS: 2 cm cyst in the lower pole of the right kidney, 1.3 cm cyst in the midpole of the right kidney and small hypodensity in the lower pole of the right kidney, likely a cyst but too small to characterize. VASCULATURE: Normal. RETROPERITONEUM AND LYMPH NODES: Normal, with no lymphadenopathy. GASTROINTESTINAL TRACT/MESENTERY: Normal appearance of the stomach, small and large bowel. Normal mesentery/peritoneum. Normal appendix. BLADDER: Normal. REPRODUCTIVE SYSTEM: Normal uterus and adnexa. BODY WALL: Normal. BONES: Sclerosis about the sacroiliac joints bilaterally involving the iliac bones and sacrum suggestive of osteitis condensans ilii. This appears slightly progressed compared to the previous study. IMPRESSION IMPRESSION: 1. No acute process in the abdomen or pelvis. 2. Normal appendix. 3. Fatty liver and hepatosplenomegaly. 4. Cholelithiasis. 5. Right renal cyst. 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 [facility] CT Abdomen and Pelvis W cont rast IVOrdered By: Varinder Avalos on 03-22-2023 [facility] Work Phone: CBC, EDIF, PLATELETon 2022 ABSOLUTE BASOPHIL COUNT 0.0 10*3/uL 0.0 - 0.2 10*3/uL [facility] Basophils/100 WBC (Bld) 0.5 % 0.0 - 2.0 % [facility] Differential cell count method Nom (Bld) AUTO DIFF % [facility] Eosinophils (Bld) [#/Vol] 0.0 10*3/uL 0.0 - 0.7 10*3/uL [facility] Eosinophils/100 WBC (Bld) 0.0 % 0.0 - 11.0 % [facility] Erythrocyte distribution width (RBC) [Ratio] 12.9 % 11.5 - 14.5 % [facility] Hematocrit (Bld) [Volume fraction] 42.6 % 36.0 - 48.0 % [facility] Hemoglobin (Bld) [Mass/Vol] 14.7 g/dL [facility] Interpretation and review of laboratory results Abnormal [facility] Lymphocytes (Bld) [#/Vol] 0.9 10*3/uL Low 1.2 - 3.4 10*3/uL [facility] Lymphocytes/100 WBC (Bld) 11.3 % Low 20.0 - 55.0 % [facility] MCH (RBC) [Entitic mass] 29.7 pg 26.0 - 35.[address] [facility] MCHC (RBC) [Mass/Vol] 34.4 g/dL [facility] MCV (RBC) [Entitic vol] 86.[address] [facility] Monocytes (Bld) [#/Vol] 0.5 10*3/uL 0.0 - 0.7 10*3/uL [facility] Monocytes/100 WBC (Bld) 6.2 % 0.0 - 10.0 % [facility] Neutrophils (Bld) [#/Vol] 6.9 10*3/uL High 1.4 - 6.5 10*3/uL [facility] Neutrophils/100 WBC (Bld) 82.0 % High 37.0 - 75.0 % [facility] Platelet mean volume (Bld) [Entitic vol] 8.[address] [facility] Platelets (Bld) [#/Vol] 250 10*3/uL 130 - 400 10*3/uL [facility] RBC (Bld) [#/Vol] 4.93 10*6/uL 4.0 - 5.4 10*6/uL [facility] WBC (Bld) [#/Vol] 8.4 10*3/uL 3.6 - 11.0 10*3/uL [facility] CHEM 7 (LYTES,BUN,CREA,GLUC) on 03-21-2023 Chloride [Moles/Vol] 108 mmol/L High [facility] Comment on above: Please note: Triglyc eride levels of 600mg/dL or higher may positively bias chloride results by approximately 2.1 mmol CO2 [Moles/Vol] 22 mmol/L [facility] Creatinine [Mass/Vol] 0.75 mg/dL [facility] GFR COMMENT Average GFR for 20-2 9 years old = 116. [facility] Comment on above: Chronic Kidney disea se, GFR = <60. Kidney failure, GFR = <15. The GFR estimate is not adjusted for extreme body surface area or acute process, nor has it been validated for women or ethnic groups other than and . GFR/1.73 sq M.predicted among blacks MDRD (S/P/Bld) [Vol rate/Area] 123 mL/min/{1.73_m2} ml/min/1.73sq. m [facility] GFR/1.73 sq M.predicted among non-blacks MDRD (S/P/Bld) [Vol rate/Area] 102 mL/min/{1.73_m2} ml/min/1.73sq. m [facility] Glucose post fast [Mass/Vol] 94 mg/dL [facility] Comment on above: NORMAL <100 mg/dL PREDIABETES 101-126 mg/dL DIABETES 126 mg/dL or higher Potassium [Moles/Vol] 3.9 mmol/L [facility] Sodium [Moles/Vol] 139 mmol/L [facility] Urea nitrogen [Mass/Vol] 19 mg/dL [facility] CT Abdomen and Pelvis W cont rast Lina 03-21-2023 Radiology Study observation (narrative) [facility] HCG ( test) Ql (U)o n 03-21-[address] [facility] HCG QUALITATIVE, URINEon HCG ( test) Ql (U) Negative NEGATIVE [facility] HEPATIC FUNCTION PANELon Albumin [Mass/Vol] 4.7 g/dL [facility] ALP [Catalytic activity/Vol] 70 U/L [facility] ALT [Catalytic activity/Vol] 40 U/L High NINF [facility] AST [Catalytic activity/Vol] 31 U/L [facility] Bilirubin [Mass/Vol] 0.6 mg/dL [facility] Bilirubin.direct [Mass/Vol] 0.0 mg/dL [facility] Protein [Mass/Vol] 7.4 g/dL [facility] LIPASEon 03-21-2023 Lipase [Catalytic activity/Vol] 70 U/L 23 - 300 U/L [facility] No Panel Informationon 03-21 Interpretation and review of laboratory results Abnormal [facility] Interpretation and review of laboratory results Abnormal [facility] URINALYSIS, MACROon 03-21-20 23 Bilirubin Ql (U) Negative NEGATIVE [facility] Clarity (U) SLIGHTLY CLOUDY Abnormal CLEAR [facility] Color (U) YELLOW YELLOW [facility] Glucose Test strip (U) [Mass/Vol] Negative NEGATIVE mg/dl [facility] Hemoglobin Ql (U) TRACE-LYSED Abnormal NEGATIVE [facility] Ketones (U) [Mass/Vol] Negative NEGATIVE mg/dl [facility] Leukocyte esterase Test strip Ql (U) SMALL Abnormal NEGATIVE [facility] Nitrite Ql (U) Negative NEGATIVE [facility] pH (U) 6.0 [pH] 5.0 - 7.[address] [facility] Protein Ql (U) Negative NEGATIVE mg/dl [facility] Specific gravity (U) [Rel density] 1.020 1.010 - 1.[address] [facility] Urobilinogen (U) [Mass/Vol] 0.2 mg/dL [facility] URINE MICROSCOPICon 03-21-20 23 Bacteria LM.HPF (Urine sed) [#/Area] 1+ Abnormal NEGATIVE [facility] Casts LM.LPF (Urine sed) [#/Area] NONE NONE /LPF [facility] Crystals LM Nom (Urine sed) NONE NONE [facility] Epithelial cells LM Ql (Urine sed) 10 TO 20 /HPF [facility] Mucus Ql (Urine sed) Negative NEGATIVE [facility] RBC LM.HPF (Urine sed) [#/Area] 1 TO 5 NEGATIVE /HPF [facility] Urine sediment comments LM Jair (Urine sed) POSSIBLY CONTAMINATED SPECIMEN, CULTURE MUST BE ORDERED SEPARATELY IF DEEMED NECESSARY. [facility] WBC LM.HPF (Urine sed) [#/Area] '5 TO 10 NEGATIVE /[facility] Discharge [id number] Discharge Profile2 Discharge Orders: Anticipated Discharge Date: Anticipated Discharge [id number] DNAR: Code Status at Discharge: Full Code : Call 911: Call 911 or go to the nearest emergency room RIGHT AWAY if you have:. Chest pain or pressure; heart racing. Shortness of breath or difficulty breathing. Seizures; change in alertness or confusion. Thoughts of hurting yourself or someone else. Monitor your blood pressure at home 3 times a day. Call Provider: Call your OB Provider if you have: (If you can't reach your healthcare provider, call 911 or go to an emergency room). Heavy bleeding. Soaking a large pad every hour or passing large clots. Incision that is not healing, is red or more painful, or has pus (if you have an incision). Red or swollen leg that is painful or warm to touch. Temperature of 100.4 degrees F or higher; bad-smelling vaginal blood or discharge. Headache that does not get better, even after taking medicine; bad headache with vision changes; pain in the upper right area of your belly. Signs of Depression. Examples include: 1. Persistent sadness 2. Frequent crying 3. Sleep problems 4. Excessive worrying 5. Feeling unable to cope. Red or swollen breast that is painful or warm to touch. Pain, burning, or difficulty with emptying your bladder. Severe constipation (more than 5 days). Trust your instincts. Always get medical care if you are not feeling well or have questions or concerns.. Activity: Return to normal activity as tolerated. Patient Instructions: Pelvic Rest: DO NOT place anything in vagina until cleared by OB Provider. May NOT return to school/work until cleared by OB Provider. Blood Pressure: Any Blood Pressure Systolic (upper number) 160 or higher OR Diastolic (bottom number) 110 or higher, call your doctor or kilnman immediately. Blood Pressure Systolic (upper number) 150 - 159 OR Diastolic (bottom number) 100 - 109, repeat in one hour. If repeat Blood Pressure Systolic 150 - 159 OR Diastolic 100 - 109, call your doctor or kilnman to discuss blood pressure management.. Diet: Regular. Follow-Up - OB Provider: Physician/Dept/ServiceOB Provider Dr. Multani Call to Schedule in1 week, Follow-up in the office on Sunday with your blood pressure log CommentsPlease call for an appointment Electronic Signatures: Aidan Multani) (Signed 14-May-2022 09:39) Authored: Discharge Orders, , Gold Form - Equipment Validation Engineer Summary Last Updated: 14-May-2022 09:39 by Aidan Multani) [facility] Order Reconciliationon 05-14 Order Reconciliation Page 1 Discharge Reconciliation Document Reconciliation Type: Discharge requested on behalf of Aidan Multani (Physician) done by Aidan Multani) Discharge - Reconciliation: 14-May-2022 09:37 by: Aidan Multani) Home Medications EnteredHOME MEDICATIONS AT DISCHARGE DateReconciliation Comment/ Additional Information acetaminophen 500 mg oral tablet 2 tab(s) orally every 6 hours, As Needed 09-May-2022 15:11 acetaminophen 500 mg oral tablet 2 tab(s) orally every 6 hours, As Needed 09-May-2022 15:11 acetaminophen 500 mg oral tablet is continued as acetaminophen 500 mg oral tablet CeleXA 20 mg oral tablet 1 tab(s) orally once a day 05-Mar-2022 20:13 CeleXA 20 mg oral tablet 1 tab(s) orally once a day 05-Mar-2022 20:13 CeleXA 20 mg oral tablet is continued as CeleXA 20 mg oral tablet cephalexin 500 mg oral tablet 1 tab(s) orally 2 times a day 09-May-2022 18:53 Discontinued; Discontinue from ORM cephalexin 500 mg oral tablet is not required cyclobenzaprine 5 mg oral tablet 1 tab(s) orally 3 times a day, As Needed 09-May-2022 15:11 cyclobenzaprine 5 mg oral tablet 1 tab(s) orally 3 times a day, As Needed 09-May-2022 15:11 cyclobenzaprine 5 mg oral tablet is continued as cyclobenzaprine 5 mg oral tablet ibuprofen 600 mg oral tablet 1 tab(s) orally every 6 hours as needed pain 03-May-2022 07:43 ibuprofen 600 mg oral tablet 1 tab(s) orally every 6 hours as needed pain 03-May-2022 07:43 ibuprofen 600 mg oral tablet is continued as ibuprofen 600 mg oral tablet Current OrdersDateHOME MEDICATIONS AT DISCHARGE DateReconciliation Comment/ Additional Information Acetaminophen Tablet (TYLENOL)DOSE = 975 mg Oral Every 6 Hours, PRN Headache 12-May-2022 23:42 Acetaminophen is not required Calcium Gluconate Injectable DOSE = 1 gram(s) IntraVenous Push Once, PRN Magnesium toxicityClinician Notes: IV push over 5 minutes 12-May-2022 20:19 Calcium Gluconate Injectable is not required ceFAZolin 2 gram/ D5W 100 mL Premix IVPB (ANCEF)Every 8 HoursRecommended Infusion Time: 30 minute(s) 13-May-2022 13:29 ceFAZolin 2 gram/ D5W 100 mL Premix IVPB is not required Cephalexin Capsule (KEFLEX)DOSE = 500 mg Oral Every 12 Hours 12-May-2022 22:37 Cephalexin is not required Citalopram (CELEXA) TabletDOSE = 20 mg Oral DailyPATIENTS OWN MEDS 13-May-2022 09:30 Citalopram (CELEXA) is not required Enoxaparin SubCutaneous (LOVENOX)DOSE = 40 mg SubCutaneous Every 24 HoursClinician Notes: Wait 4 hours after neuraxial catheter removal AND 12 hours after placement of neuraxial catheter. BMI less than 35 with a score greater than 5 OR BMI 35 to 39. 12-May-2022 20:19 Enoxaparin SubCutaneous is not required hydrALAZINE (APRESOLINE) Injectable DOSE = 5 mg IntraVenous Push Once, PRN Acute-onset, severe HTN w/out known, suspected CADClinician Notes: Consult provider prior to administration. Push over more than 2 minutes. Systolic greater than or equal to 16 12-May-2022 20:19 hydrALAZINE (APRESOLINE) Injectable is not required Ibuprofen Tablet (ADVIL, MOTRIN)DOSE = 800 mg Oral Every 8 Hours, PRN Pain - Mod (4-6) 13-May-2022 02:07 Ibuprofen is not required Labetalol Injectable (TRANDATE)DOSE = 20 mg IntraVenous Push Once, PRN Acute-onset, sev HTN w/o active asthma/ eliel<60Clinician Notes: Consult provider prior to administration. Push over more than 2 minutes. Systolic greater than or equal to 160 OR 12-May-2022 20:19 Labetalol Injectable is not required Lactated Ringers Infusion IV Bag Volume = 1,000 mL Run at: 75 mL/hr IntraVenous 12-May-2022 21:35 Lactated Ringers Infusion is not required Loperamide Capsule (IMODIUM)DOSE = 4 mg Oral Every 2 Hours, PRN If Carboprost given or loose stoolsClinician Notes: Max dose of 16mg / 24 hours 12-May-2022 20:19 Loperamide is not required Magnesium Sulfate 20 gram/ Sterile Water 500 mL Infusion with Bolus from Bag IntraVenous INITIAL Bolus = 6 gram(s) infused over 20 minutesDose Rate: 1 g/hrAdmin Rate = 25 mL/hrClinician Notes: No bolusNotes from Pharmacy: DOSE Rate 13-May-2022 17:34 Magnesium Sulfate 20 gram/ Sterile Water 500 mL Infusion with Bolus from Bag is not required NIFEdipine (PROCARDIA) Immediate Release CapsuleDOSE = 10 mg Oral Once, PRN Acute-onset, severe HTN w/out IV access/ pref oralClinician Notes: Consult provider prior to administration. Systolic greater than or equal to 160 OR Diastolic greater than or 12-May-2022 20:19 NIFEdipine (PROCARDIA) Immediate Release is not required Ondansetron Injectable (ZOFRAN)DOSE = 4 mg IntraVenous Push Every 6 Hours, PRN Nausea and/or Vomiting 13-May-2022 16:30 Ondansetron Injectable is not required Prochlorperazine Injectable (COMPAZINE)DOSE = 10 mg IntraVenous Push Every 8 Hours, PRN Nausea 13-May-2022 13:05 Prochlorperazine Injectable is not required Sodium Chloride 0.9% Injectable Flush via Peripheral LineVolume = 10 mL IntraVenous Flush Every 12 Hours and as Needed 12-May-2022 20:19 Sod (more content not included)... Normal [facility] COMPREHENSIVE PANELon 2021 Albumin [Mass/Vol] 4.3 g/dL Normal 3.4 - 5.0 [facility] Comment on above: Performed By: #### C MP ####[address] [address] ALP [Catalytic activity/Vol] 85 U/L Normal 33 - 110 [facility] Comment on above: Performed By: #### C MP ####[address] [address] ALT [Catalytic activity/Vol] 23 U/L Normal 7 - 45 [facility] Comment on above: Result Comment: Kimberly ents treated with Sulfasalazine may generate falsely decreased results for ALT. Performed By: #### C MP ####[address] [address] Anion gap [Moles/Vol] 14 mmol/L Normal 10 - 20 [facility] Comment on above: Performed By: #### C MP ####[address] [address] AST [Catalytic activity/Vol] 16 U/L Normal 9 - 39 [facility] Comment on above: Performed By: #### C MP ####[address] [address] Bilirubin [Mass/Vol] 0.3 mg/dL Normal 0.0 - 1.2 [facility] Comment on above: Performed By: #### C MP ####[address] [address] Calcium [Mass/Vol] 9.2 mg/dL Normal 8.6 - 10.3 [facility] Comment on above: Performed By: #### C MP ####[address] [address] Chloride [Moles/Vol] 104 mmol/L Normal 98 - 107 [facility] Comment on above: Performed By: #### C MP ####[address] [address] Creatinine [Mass/Vol] 0.96 mg/dL Normal 0.50 - 1.05 [facility] Comment on above: Performed By: #### C MP ####[address] [address] GFR/1.73 sq M.predicted among non-blacks MDRD (S/P/Bld) [Vol rate/Area] 85 mL/min/{1.73_m2} Normal >90 [facility] Comment on above: Result Comment: CALC ULATIONS OF ESTIMATED GFR ARE PERFORMED USING THE 2020 CKD-EPI STUDY REFIT EQUATION WITHOUT THE RACE VARIABLE FOR THE IDMS-TRACEABLE CREATININE METHODS. https://jasn.asnjournals.org/content//ASN.6675715 988 Performed By: #### C MP ####[address] [address] Glucose [Mass/Vol] 74 mg/dL Normal 74 - 99 [facility] Comment on above: Performed By: #### C MP ####[address] [address] HCO3 (Bld) [Moles/Vol] 22 mmol/L Normal 21 - 32 [facility] Comment on above: Performed By: #### C MP ####[address] [address] Potassium [Moles/Vol] 3.8 mmol/L Normal 3.5 - 5.3 [facility] Comment on above: Performed By: #### C MP ####[address] [address] Protein [Mass/Vol] 7.1 g/dL Normal 6.4 - 8.2 [facility] Comment on above: Performed By: #### C MP ####[address] [address] Sodium [Moles/Vol] 136 mmol/L Normal 136 - 145 [facility] Comment on above: Performed By: #### C MP ####[address] [address] Urea nitrogen [Mass/Vol] 16 mg/dL Normal 6 - 23 [facility] Comment on above: Performed By: #### C MP ####[address] [address] Covid 19 Resultson 2 SARS-CoV-2 (COVID-19) RNA BRANDI+probe Ql (Unsp spec) NEGATIVE COVID-19 Test Coronaviruses are common world-wide and are the cause of many common colds. SARS-COV2 is a new coronavirus that began circulating worldwide in 2019 so we are calling it COVID-19. It has been estimated that four out of five patients with COVID-19 will recover at home without the need for medical attention. Symptoms of COVID-19 may include cough, fever, shortness of breath, loss of taste or smell and other flu-like symptoms including chills, sore muscles, sore throat, and headache. Severe illness is more common in older people and people with other health problems such as high blood pressure, obesity, and immune system problems. If the test is positive, you have COVID-19. You will be contacted by the ordering physicians office and instructed to remain on home isolation, in accordance with CDC guidelines. You may also be contacted by the [facility] to see if any of your close contacts may have been exposed to the virus and need to quarantine. If the test is negative, you likely do not have COVID-19 at this time, but you still may have a different illness that can spread to other people (like Influenza, or the Flu) and could still be at risk for getting COVID-19. We recommend that you stay away from other people to limit the spread of illness until your symptoms are improving and you are fever-free for 24 hours without the use of fever lowering medications such as acetaminophen or ibuprofen. No test is 100% accurate so if you are still concerned you may have COVID-19, talk to your doctor about the need to continue to stay away from others. Medicines Unless your provider told you not to use the following: Acetaminophen (Tylenol and others) is generally safe. Anti-inflammatory medications, such as Ibuprofen (Advil or Motrin) or Naproxen (Aleve) can also be used. Zcjz-lzl-mwwcytd cough and cold medicines can be used according to the instructions on the package. Some wtyg-oce-jqnetut medicines also contain acetaminophen. Make sure you are not taking more than your recommended dose. For those not hospitalized, there is no specific treatment available for this illness. Antibiotics do not treat Coronaviruses. Follow-Up Follow up with your doctor by scheduling a virtual visit or consider follow-up at one of our urgent care fever clinics. If you are having difficulty breathing, or are very weak and having difficulty standing, this is a medical emergency. Call 911 or have someone take you to the nearest emergency room immediately. If possible, wear a facemask. Additional guidance from the CDC for patients who tested POSITIVE for COVID-19 How to isolate: Isolate yourself in a specific room at home and limit your contact with others. Use a separate bathroom from other members of the household, when possible. Leave home only to get essential medical care. Do not go to work, school or public areas. Avoid using public transportation, ride-sharing, or taxis. Restrict contact with pets and other animals. If you must care for your pet or be around animals while you are sick, wash your hands before and after your interaction and wear a facemask. Make sure that shared spaces in the home have good airflow, such as by an air conditioner or an opened window, weather permitting. Personal Hygiene Procedures: Wear a face mask when in the same room as other people or pets. If a face mask interferes with your breathing, others should wear a mask when sharing space with you. Frequent hand-washing: wash your hands with soap and water for at least 20 seconds. If soap and water are not available, use alcohol-based hand branch office manager. Avoid touching your eyes, nose, and mouth with unwashed hands. Household Hygiene Procedures: Avoid sharing personal household items such as dishes, glassware, cups, eating utensils, towels or bedding with other people or pets in your home. After use, these items should be washed with soap and hot water. Disinfect all high-touch surfaces every day with antibacterial cleaning solutions such as Lysol wipes, bleach, cleansers, etc. High-touch surfaces include tabletops, doorknobs, bathroom fixtures, toilets, phones, keyboards, tablets and bedside tables. Immediately clean any surfaces that may have blood, poop or body fluids on them, using antibacterial cleaning solutions such as Lysol wipes, bleach, cleansers, etc. If clothing or bedding come into contact with blood, poop or body fluids, they should be washed immediately. Follow the directions on the laundry detergent and clothing labels but hot water is recommended when possible. Stopping home isolation precautions: If possible, consult your doctor before stopping home isolation precautions. According to the CDC, you can discontinue home isolation precautions when you have met both of these criteria: Your fever and respiratory symptoms have been gone for 24 stanley (more content not included)... Normal [facility] Daily Progress Note - OB-Ant enatal Testingon 05-13-2022 Daily Progress Note - OB- Testing This report has been cancelled. Normal [facility] Daily Progress Note - OB-Pos t-partumon 05-13-2022 Daily Progress Note - CA-Nxct-dsauhh Current Stage: Stage: Post- Subjective Data: Antepartum: Vaginal Bleeding: Normal Post : Ambulate: No Patient resting in bed Flatus: Yes Tolerate Diet: Patient feeling nauseous but has not vomited Lochia: Light Current Pain Level (1-10): 5 Pain Comment: Patient reports that headache persisted : Patient readmitted for persistent headaches and mild elevations in blood pressure currently on mag. Patient reports that she was anxious last night but really had resolution of her anxiety with Ativan. She reports that she still slightly sleepy. Patient also reports that she is nauseous this morning but did receive an antiemetic. Patient denies shortness of breath. Patient reports that her headache is persistent 5 out of 10. Patient has no additional complaints Objective Information: Objective Information: T PRBPMAPSpO2 [id number] % Date/Time05/13 7: 9: 8: 9: 9: 9:58 Range(36.3C - 37.1C ) (67 - 117 ) (14 - 18 ) (118 - 147 )/ (48 - 84 ) (69 - 104 ) (82% - 100% ) Highest temp of 37.1 C was recorded at 05/13 5:18 Pain reported at 05/13 8:20: 3 = Mild ---- Intake and Output ----- Mn/Dy/Year TimeIntakeOutputNet May 13, 2022 6:00 [id number] May 12, 2022 10:00 [id number] The Intake and Output Totals for the last 24 hours are: [facility]Out[facility] center[facility] [id number] Physical Exam: Constitutional: Laying in bed comfortably Obstetric: Uterus nontender Head/Neck: Good range of motion Respiratory/Thorax: Clear to auscultation with good air movement Cardiovascular: Regular rate and rhythm Musculoskeletal: Good mobility of her extremities Extremities: Trace edema Neurological: Reflexes +1 with no clonus Psychological: Appropriately oriented with normal mood and affect Recent Lab Results: Results: CBC: 05/12/2022 21:30 \ Hgb / \ 13.4 / WBC Plt 9.7 357 / Hct \ / 40.8 \ RBC: 4.65 MCV: 88 CMP: 05/12/2022 22:20 NA+ Cl- BUN / 136 104 16 / -------- Glucose --- 74 K+ HCO3- Creat \ 3.8 22 0.96 \ \ T Bili / \ 0.3 / AST x ---- x ALT 16 x ---- x 23 / Alk P \ / 85 \ Calcium : 9.2 Anion Gap : 14 Albumin : 4.3 T Protein : 7.1 Assessment and Plan: Additional Dx: Pre-eclampsia: Entered Date: 12-May-2022 20:11 Headache: Entered Date: 09-May-2022 17:26 Assessment: Patient readmitted for persistent headache and mild elevation in blood pressure for magnesium for preeclampsia. We will do magnesium for 24 hours. Check magnesium level now. Headache has been persistent and patient agreeable to trying oral Imitrex. Anticipate if patient doing well tomorrow blood pressure within the normal to mild elevation range will discharge home. Electronic Signatures: Aidan Multani) (Signed 13-May-2022 10:08) Authored: Current Stage, Subjective Data, Objective Data, Assessment and Plan, Note Completion Last Updated: 13-May-2022 10:08 by Aidan Multani) [facility] Discharge Planning Qwgu6td 1 0- Discharge Planning Note2 Discharge Planning: Discharge Barriersnone Planned Dispositionhome Anticipated Discharge [id number] Discharge Planning Date and Time: 05/12/2022 @2217 Discharge Planning initiated on admission and formally reevaluated at this time. Patient independent with ambulation and ADL's prior to admission. Additional home going needs anticipated at this time: none Handouts given to and reviewed with patient/caregiver per unit folder standards. Patient verbalizes understanding and denies any other post-discharge needs. Plan to continue to assess home going/discharge needs. Coordinate with interdisciplinary team as needed. Signature: Sherri Villarreal RN Date and Time: 05/18/2022 @1230 According to plan, patient discharged home with and infant. Discharge instructions printed and reviewed. Teaching provided on new medications, self-care, signs and symptoms to report, and follow-up appointments. Patient verbalized understanding and denies any questions at time of discharge. Patient instructed to call provider with any additional questions after discharge. Signature: Meaghan Bentley RN Assessment: Discharge Planning Assessment [id number] Lives Withdependent child(marizol); significant other(1) Living Arrangementshouse(1) [facility] ([facility]) Resource/Environmental Concernsnon(1) [facility]ticipated [facility](1) Services Anticipated at Transitionnon(1) Discharge Documentation: Discharge/Transfer Date/[id number] 12:30 Discharged Accompanied Byspouse Transportation Methodprivate car Discharge Modewheelchair Code StatusCode Status order at time of discharge: Full Code Discharge Order Writtenyes [place] DNR Form Sent with Patient and/or Familyn/a Final Disposition.Home Electronic Signatures: Sherri Villarreal (CONCHITA) (Signed 12-May-2022 22:18) Authored: Discharge Planning, Assessment Meaghan Bentley (CONCHITA) (Signed 14-May-2022 13:16) Authored: Discharge Planning, Discharge Documentation Last Updated: 14-May-2022 13:16 by Meaghan Bentley (CONCHITA) References: 1. Data Referenced From Patient Profile - OB v3 12-May-2022 22:07 Normal [facility] MAGNESIUMon 05-13-2022 Magnesium [Mass/Vol] 8.58 mg/dL Critically high 1.60 - 2.4 0 [facility] Comment on above: Order Comment: Brie grimaldo Called- RB to Alyssa Carlson, 05/13/2022 17:13 Result Comment: Resu lt derived by dilution Magnesium Called- RB to Alyssa Carlson, 05/13/2022 17:13 Performed By: #### M G ####[place] [id number] MAGNESIUM Canceled Normal [facility] Comment on above: Order Comment: TEST MAGNESIUM WAS CANCELLED, 05/13/2022 15:28 Performed By: #### M G #### [place] [id number] Magnesium [Mass/Vol] 9.63 mg/dL Critically high 1.60 - 2.4 0 [facility] Comment on above: Order Comment: Agustin d- RB toMeaghan Bentley Brianna, 05/13/2022 11:31 Result Comment: Call ed- RB to Meaghan Mc Brianna, 05/13/2022 11:31 Performed By: #### M G ####[place] [id number] Patient Profile - OB v3on Patient Profile - OB v3 Profile: Initial Info: How to be AddressedJasmine (1) Spoken Language PreferredEnglish (1) Source of Informationpatient Reason for admission this visitpostpartum Wants Family/Rep Notified of Admissionn/a; family present Notify PCPnotify PCP Informed of Patient Visiting Rightsyes [facility] Patient Belongingsnone Home Meds have been Reviewed and Verified with Patient/Familyyes Medications Brought to Hospitalyes Medication Dispositionsent to pharmacy Info: Gravida4 (1) Term Deliveries1 (1) Deliveries1 (1) Abortions1 (1) Living Children2 (1) Records availableyes Trimester Care Initiatedfirst Care ProviderDr. Multani Current RisksN/A patient Previous live (any gestational age)yes Most Recent Live [id number] All Previous Delivery Type(s)vaginal delivery All Previous /Delivery ComplicationsHeadaches since 30 weeks gestation . Feedingbreastmilk Benefits of Breast Milk DiscussionThe benefits of exclusive breast milk feeding and the risk of adding formula have been discussed with patient / mother. Discussion Date / [id number] 22:12 Previous Experienceyes General Health: Current Weight in kg83 kilogram(s) Current Weight in lbk687.9 pound(s) Weight Methodactual (measured) Scale Typestanding Height in feet4 feet Height in ygozdf30.98 inch(es) Height in cm149.8 centimeter(s) Height Methodstated BMI (kg/m2)36.987 square meter Patient or Family Member Reaction to Anesthesiano previous reaction Blood Avoidance/Restrictionsno ne Previous Transfusion Reactionno Rsp Based Care: How would you like to participate in your careKeep me informed What is the number one concern for you during this hospitalizationbeing able to keep nursing What is the most important thing we can do to support you during this hospitalizationBeing able to pump and nurse infant Is there anything we need to know to best care for youkeep me informed Substance: Smoking Statusformer smoker Alcohol Usedenies Drug Usedenies Drug 2 Usedenies Health Mgmt: Symptoms/Conditions Managed at H[place] Barriers to Managing Healthnone Relationship/Environ: Primary Source of Support/Comfortsignifica nt other(1) Lives Withdependent child(marizol); significant other(2) Living Arrangementshouse Resource/Environmental Concernsnone [facility] Anticipated at Transitionnone Additional Information: Information Review: Allergies and Significant Events have been Reviewed and Verified with Patient/Familyyes Allergy, Intolerance, Adverse Event: Allergies: Singulair: Drug, Other, Active Latuda: Drug, Other, Active Latex: Latex, Swelling/Edema, Rash, Active Electronic Signatures: Sherri Villarreal (CONCHITA) (Signed 12-May-2022 22:15) Authored: Initial Info, Info, General Health, Rsp Based Care, Substance, Health Mgmt, Relationship/Environ, Additional Information Last Updated: 12-May-2022 22:15 by Sherri Villarreal (CONCHITA) References: 1. Data Referenced From Patient Profile - OB v3 02-May-2022 06:45 2. Data Referenced From Discharge Planning Note2 02-May-2022 06:53 Normal [facility] Admission Risk Screen - [place]Bon 05-12-2022 Admission Risk Screen - OB Allergies: Allergies: Singulair: Other Latuda: Other Latex: Swelling/Edema, Rash Patient Verification: New W ID Band Applied in my Departmentyes Patient Identity Verified Bypatient ID Band FULL Name, include Middle, spelling matches patient's ID used for verificationyes ID Band Matches Patient ID used for Verficationyes ID Band MRN Matches EMR MRNyes Visitor Restriction: Coronavirus Visitor Restriction: Reasonable restrictions to in-person visitors will be observed due to current coronavirus pandemic. Travel History: COVID-19 Screening Completedno exposure or symptoms Travel or Exposure Past 30 DaysNO travel to International locations in the past 30 days Advance Directive: Advance Directive/DNRno Advance Directive Information Givenpatient/family declined Persaud Fall Screen: History of falling (immediate or previous)no (0) Secondary Diagnosisyes (15) Intravenous Therapy/ Heparin/Saline Lockyes (20) Gait/Transferringnormal/ bedrest/wheelchair (0) Ambulatory Aidsnone/bedrest/nurse assist (0) Mental Statusoriented to own ability (0) Score: Low risk (<25). Moderate risk (25-44). High risk (>44).35 Persaud InterventionsMODERATE INTERVENTIONS: *Low Interventions Plus: * falls risk band/sticker applied to patient, *yellow non-skid footwear, *instruct to call for assistance before getting out of bed, *bed/chair/bedside commode/toilet alarms, *sensory devices/ambulatory aides available and in reach, *medications reviewed for potential side effects and care planning. Functional screen: Functional Screen: In the recent/past 2-4 weeks, patient or family have noticedno issues that require a rehabilitation consult at this time Learning Assessment (Patient): Patient is Able to be Assessed for Learningyes Factors Influencing Readiness to Learnanxiety Factors that Impact Ability to Learnnone Devices/Methods Used to Communicatenone Learning Preferencesverbal instruction Cultural Considerationsnone Developmental Considerationsnone Voodoo Considerationsnone Learning Assessment (Other Learner): Other learner availableno Nutrition Risk Screen: Nutrition Risk Screenno indicators present Nutrition Consult needed this visitno Can Patient Participate in Room Serviceyes Pain Screen: Pain Control Method: Labornone; Pain Control Method: Postpartumcold application; medication; relaxation Pain Scalenumerical 0-10 Pain Scale Educationteaching provided Acceptable Pain Level5 = Moderate Expression of Pain (nonverbal)change in activity pattern, verbalization Chronic Painyes Chronic Head/Neck pain locationhead, occipital region, forehead Chronic Pain DurationSince 30 weeks gestation Skin - Price Scale: Price Scale (daily): Price: Sensory Perception (response to environment)(4) no impairment Price: Moisture (degree skin exposed to moisture)(4) rarely moist Price: Activity (ability to walk)(1) bedfast Price: Mobility (amount/control of body movement)(4) no limitation Price: Nutrition (quality of food intake)(4) excellent Price: Friction and Shear(3) no apparent problem Price: Score20 Pressure Injury Present on Admissionno Spiritual Screen: Are there any cultural, spiritual, samaritan practices/values/needs that are important for us to knowno Depression Screen: During the past month, have you often been bothered by feeling down, depressed or hopelessno During the past month, have you often had little interest or pleasure in doing thingsno Have you had any thoughts of harming anyone elseno [place] Suicide: Risk Screen Not Applicable/Able to Answerable to be screened In the Past Month: Have you wished you were or could go to sleep and not wake upno In the Past Month: Have you had any actual thoughts of killing yourselfno Lifetime: Have you ever done, started to do, or prepared to do anything to end your lifeno [place] Suicide Risknegative Family Violence Screen: Are you or have you been threatened or abused physically, emotionally, or sexually by anyoneno Do you feel UNSAFE going back to the place where you are livingno Clinical assessment: Are there any apparent signs of injuries/behaviors that could be related to abuse/neglectno Social Service Consult for abuse/neglect needed this visitno Vaccinations: Tdap: Immunizations, 22-Feb-2022 Tdap: Immunizations, 03-Aug-2020 Tdap: Immunizations, 03-Aug-2020 Tdap: Immunizations, 03-Aug-2020 Vaccination - Influenza Vaccination Screen: Is it flu season (between and October 20)Yes Screening for identified contraindications to influenza vaccination patient/caregiver refusal Vaccination - Pneumonia Vaccination Screen: Patient has received a previous pneumonia vaccine:no/unknown... Immunocompetent persons with underlying chronic conditions or reside in jail care facilitiesnone of these conditions Perso (more content not included)... Normal [facility] CBCon 05-12-2022 Erythrocyte distribution width (RBC) [Ratio] 14.6 % High 11.5 - 14.5 [facility] Comment on above: Performed By: #### H EPFP #### [address] [address] Hematocrit (Bld) [Volume fraction] 40.8 % Normal 36.0 - 46.0 [facility] Comment on above: Performed By: #### H EPFP #### [address] [address] Hemoglobin (Bld) [Mass/Vol] 13.4 g/dL Normal 12.0 - 16.0 [facility] Comment on above: Performed By: #### H EPFP #### [address] [address] MCHC (RBC) [Mass/Vol] 33.0 g/dL Normal 32.0 - 36.0 [facility] Comment on above: Performed By: #### H EPFP #### [address] [address] MCV (RBC) [Entitic vol] 88 fL Normal 80 - 100 [facility] Comment on above: Performed By: #### H EPFP #### [address] [address] Platelets (Bld) [#/Vol] 357 10*3/uL Normal 150 - 450 [facility] Comment on above: Performed By: #### H EPFP #### [address] [address] RBC 4.65 x10E12/L Normal 4.00 - 5.20 [facility] Comment on above: Performed By: #### H EPFP #### [address] [address] WBC (Bld) [#/Vol] 9.7 10*3/uL Normal 4.4 - 11.3 [facility] Comment on above: Performed By: #### H EPFP #### [address] [address] COMPREHENSIVE PANELon 2021 ALBUMIN Canceled Normal [facility] Comment on above: Order Comment: TEST COMPREHENSIVE PANEL WAS CANCELLED, 05/12/2022 20:54 Performed By: #### C MP ####[place] [id number] ALKALINE PHOSPHATASE Canceled [facility] Comment on above: Order Comment: TEST COMPREHENSIVE PANEL WAS CANCELLED, 05/12/2022 20:54 Performed By: #### C MP ####[place] [id number] ALT Canceled [facility] Comment on above: Order Comment: TEST COMPREHENSIVE PANEL WAS CANCELLED, 05/12/2022 20:54 Result Comment: Kimberly ents treated with Sulfasalazine may generate falsely decreased results for ALT. Performed By: #### C MP ####[place] [address] ANION GAP Canceled [facility] Comment on above: Order Comment: TEST COMPREHENSIVE PANEL WAS CANCELLED, 05/12/2022 20:54 Performed By: #### C MP ####[place] [address] AST Canceled [facility] Comment on above: Order Comment: TEST COMPREHENSIVE PANEL WAS CANCELLED, 05/12/2022 20:54 Performed By: #### C MP ####[place] [address] BICARBONATE Canceled [facility] Comment on above: Order Comment: TEST COMPREHENSIVE PANEL WAS CANCELLED, 05/12/2022 20:54 Performed By: #### C MP ####[place] [id number] BILIRUBIN,TOTAL Canceled [facility] Comment on above: Order Comment: TEST COMPREHENSIVE PANEL WAS CANCELLED, 05/12/2022 20:54 Performed By: #### C MP ####[place] [id number] CALCIUM Canceled [facility] Comment on above: Order Comment: TEST COMPREHENSIVE PANEL WAS CANCELLED, 05/12/2022 20:54 Performed By: #### C MP ####[place] [id number] CHLORIDE Canceled [facility] Comment on above: Order Comment: TEST COMPREHENSIVE PANEL WAS CANCELLED, 05/12/2022 20:54 Performed By: #### C MP ####[place] [id number] CREATININE Canceled [facility] Comment on above: Order Comment: TEST COMPREHENSIVE PANEL WAS CANCELLED, 05/12/2022 20:54 Performed By: #### C MP ####[place] [id number] eGFR FEMALE Canceled [facility] Comment on above: Order Comment: TEST COMPREHENSIVE PANEL WAS CANCELLED, 05/12/2022 20:54 Result Comment: CALC ULATIONS OF ESTIMATED GFR ARE PERFORMED USING THE 2020 CKD-EPI STUDY REFIT EQUATION WITHOUT THE RACE VARIABLE FOR THE IDMS-TRACEABLE CREATININE METHODS. https://jasn.asnjournals.org/content/early/ASN.2368972 988 Performed By: #### C MP ####[place] [id number] eGFR MALE Canceled [facility] Comment on above: Order Comment: TEST COMPREHENSIVE PANEL WAS CANCELLED, 05/12/2022 20:54 Result Comment: CALC ULATIONS OF ESTIMATED GFR ARE PERFORMED USING THE 2020 CKD-EPI STUDY REFIT EQUATION WITHOUT THE RACE VARIABLE FOR THE IDMS-TRACEABLE CREATININE METHODS. https://jasn.asnjournals.org/content/early/ASN.3448961 988 Performed By: #### C MP ####[place] [id number] GLUCOSE Canceled [facility] Comment on above: Order Comment: TEST COMPREHENSIVE PANEL WAS CANCELLED, 05/12/2022 20:54 Performed By: #### C MP ####[place] [id number] POTASSIUM Canceled [facility] Comment on above: Order Comment: TEST COMPREHENSIVE PANEL WAS CANCELLED, 05/12/2022 20:54 Performed By: #### C MP ####[place] [id number] SODIUM Canceled Normal [facility] Comment on above: Order Comment: TEST COMPREHENSIVE PANEL WAS CANCELLED, 05/12/2022 20:54 Performed By: #### C MP ####[place] [id number] TOTAL PROTEIN Canceled [facility] Comment on above: Order Comment: TEST COMPREHENSIVE PANEL WAS CANCELLED, 05/12/2022 20:54 Performed By: #### C MP ####[place] [address] UREA NITROGEN Canceled Normal [facility] Comment on above: Order Comment: TEST COMPREHENSIVE PANEL WAS CANCELLED, 05/12/2022 20:54 Performed By: #### C MP ####[place] [address] CORONAVIRUS 2019, SCREEN ASY MPTOMATICon 05-12-2022 Lab Specimen Source Nasal, Nasopharyngeal Normal [facility] Comment on above: Performed By: #### H EPFP #### [place] [address] SARS-CoV-2 (COVID-19) RNA BRANDI+probe Ql (Unsp spec) Not detected Normal Not Detected [facility] Comment on above: Result Comment: . This test has received FDA Emergency Use Authorization (EUA) and has been verified by [facility]. This test is only authorized for the duration of time that circumstances exist to justify the authorization of the emergency use of in vitro diagnostic tests for the detection of SARS-CoV-2 virus and/or diagnosis of COVID-19 infection under section 564(b)(1) of the Act, 21 U.S.C. 360bbb-3(b)(1), unless the authorization is terminated or revoked sooner. [facility] is certified under CLIA-88 as qualified to perform high complexity testing. Testing is performed in the [facility] laboratory located at [address] [place] [address]. SARS-CoV-2/Flu/RSV Multiplex Test: Fact sheet for providers: https://www.fda.gov/media/390993/download Fact sheet for patients: https://www.fda.gov/media/672904/download Performed By: #### H EPFP #### [facility] [address] [place] [address] MAGNESIUMon 05-12-2022 Magnesium [Mass/Vol] 2.13 mg/dL Normal 1.60 - 2.40 [facility] Comment on above: Performed By: #### M G ####[place] [place] [address] DENTAL LAB TECHNICIAN - Office Visiton 04-23 DENTAL LAB TECHNICIAN - Office Visit Diagnoses/Problems Assessed Chronic headache (784.0) (R51.9,G89.29) Orders Start: Rizatriptan Benzoate 5 MG Oral Tablet Disintegrating; TAKE 1 TABLET AT ONSET OF HEADACHE. MAY REPEAT EVERY 2 HOURS NEEDED. MAXIMUM 3 TABLETS IN 24 HOURS Provider Impressions Patient is a 21-year-old who comes in for blood pressure check 10 weeks . Blood pressure today is normal but patient has persistent headaches. Headaches have responded briefly to medications but then recur. At this point since the headaches are persistent have recommended that the patient be readmitted for magnesium x24 hours and then we could address the high headaches. Patient believes that the headaches are genetic since her siblings all suffer from migraines. Patient instructed to settle her affairs at home and then return to the hospital with some support since she will be bringing the baby back to the hospital since the baby is exclusively breast-feeding. Patient was also informed of the risk of going AGAINST MEDICAL ADVICE such as seizures neurologic injuries etc. patient understands and will make every effort to return to the hospital for magnesium Chief Complaint Patient here today for blood pressure check. She states she has been taking it at home and it is around 140s/80s. She has concerns of headache since Sunday and was seen in the ER. She is 10 days post and not on medication. History of Present IllnessPatient is a 21-year-old who comes in for follow-up of follow-up blood pressure check approximately 10 days . Patient was seen in the emergency room 3 days ago with headaches that responded to Reglan and Benadryl Tylenol and a single dose of Imitrex. However after going home the patient reports the following morning she awoke with another headache. She reports that the headaches are mild to moderate but they do not respond to Tylenol or Motrin. She has stopped taking Benadryl and Reglan which previously helped with her headaches because she did a few that this may dry up her milk. Patient denies scotomata or right upper quadrant pain. Patient currently reports that her is returning to work tomorrow and has no help with her other 2 children at home. Active Problems Problems 38 weeks gestation of (V22.2) (Z3A.38) Anxiety and depression (300.00,311) (F41.9,F32.A) Borderline personality disorder (301.83) (F60.3) Dizziness (780.4) (R42) Dysuria (788.1) (R30.0) Encounter for screening for cervical cancer (V76.2) (Z12.4) Encounter for supervision of high risk in third trimester, antepartum (V23.9) (O09.93) Flank pain, acute (789.09,338.19) (R10.9) History of PCOS (V13.29) (Z87.42) History of delivery, currently (V23.89) (O09.899) Hypokalemia (276.8) (E87.6) Hypomagnesemia (275.2) (E83.42) Increased urinary frequency (788.41) (R35.0) Migraine headache (346.90) (G43.909) Mild depression (648.44,311) (F53.0) Nausea and vomiting in (643.90) (O21.9) New daily persistent headache (339.42) (G44.52) Obesity (BMI 30-39.9) (278.00) (E66.9) Other irritable bowel syndrome (564.1) (K58.8) Pelvic pain in female (625.9) (R10.2) Prior complicated by PIH, antepartum (V23.49) (O09.899) PTSD (post-traumatic stress disorder) (309.81) (F43.10) Screening for STD (sexually transmitted disease) (V74.5) (Z11.3) Past Medical History Problems History of pre-eclampsia (V13.29) (Z87.59) Resolved Date: 01 Nov 2020 History of spontaneous (V13.29) (Z87.59) november 2019 History of vaginal delivery (V13.29) 09/13/2018; 34 WEEKS; FEMALE; 5LBS 9OZ 11/2019 SAB 10/09/2020; 38 WEEKS 2 DAYS; MALE; VAGINAL; 6LBS 10OZ History of Menarche (V21.8) AGE 8 History of Pap test, as part of routine gynecological examination (V76.2) (Z01.419) 10/28/2021; NIL Surgical History Problems History of Tonsillectomy with adenoidectomy Family History Mother Family history of cerebrovascular accident (CVA) (V17.1) (Z82.3) Family history of depression (V17.0) (Z81.8) Family history of migraine headaches (V17.2) (Z82.0) Grandmother Family history of diabetes mellitus (V18.0) (Z83.3) Social History Problems Does not use illicit drugs (V49.89) (Z78.9) Never a smoker No alcohol use Sexually active Allergies Medication Latex Gloves Recorded By: Jessie Mason; 11/21/2019 2:11:48 PM Singulair 17 Jan 2021; Recorded By: Chandrika La; 01/17/2021 9:53:38 AM Current Meds Medication NameInstruction Aspirin 81 MG Oral Tablet Delayed ReleaseTAKE 2 TABLET Daily B-6 50 MG Oral TabletTAKE 1 TABLET TWICE DAILY. Benadryl TABS Citalopram Hydrobromide 20 MG Oral TabletTAKE 1 TABLET BY MOUTH EVERY DAY Cyclobenzaprine HCl - 5 MG Oral TabletTAKE 1 TABLET 3 TIMES DAILY. Iron TABS Magnesium Oxide 400 MG Oral TabletTAKE 1 TABLET BY MOUTH TWO TIMES A DAY Metoclopramide HCl - 10 MG Oral Tablet Ondansetron 4 MG Oral Tablet Disintegrating1 tab Q6H prn nausea Onda (more content not included)... Normal OSIX BASIC METABOLIC PANELon 04-22 Anion gap [Moles/Vol] 12 mmol/L Normal - [facility] Comment on above: Performed By: #### B ####[place] [place] [address] Calcium [Mass/Vol] 8.8 mg/dL Normal 8.6 - 10.3 [facility] Comment on above: Performed By: #### B MP ####[address] [address] Chloride [Moles/Vol] 110 mmol/L High 98 - 107 [facility] Comment on above: Performed By: #### B MP ####[address] [address] Creatinine [Mass/Vol] 0.83 mg/dL Normal 0.50 - 1.05 [facility] Comment on above: Performed By: #### B MP ####[address] [address] eGFR FEMALE >90 Normal >90 [facility] Comment on above: Result Comment: CALC ULATIONS OF ESTIMATED GFR ARE PERFORMED USING THE 2020 CKD-EPI STUDY REFIT EQUATION WITHOUT THE RACE VARIABLE FOR THE IDMS-TRACEABLE CREATININE METHODS. https://jasn.asnjournals.org/content/early//ASN.1722365 988 Performed By: #### B MP ####[address] [address] Glucose [Mass/Vol] 85 mg/dL Normal 74 - 99 [facility] Comment on above: Performed By: #### B MP ####[address] [address] HCO3 (Bld) [Moles/Vol] 22 mmol/L Normal 21 - 32 [facility] Comment on above: Performed By: #### B MP ####[address] [address] Potassium [Moles/Vol] 3.9 mmol/L Normal 3.5 - 5.3 [facility] Comment on above: Performed By: #### B MP ####[address] [address] Sodium [Moles/Vol] 140 mmol/L Normal 136 - 145 [facility] Comment on above: Performed By: #### B MP ####[address] [address] Urea nitrogen [Mass/Vol] 17 mg/dL Normal 6 - 23 [facility] Comment on above: Performed By: #### B MP ####[address] [address] CBC AND DIFFERENTIALon 05-09 Basophils (Bld) [#/Vol] 0.10 10*3/uL Normal 0.00 - 0.10 [facility] Comment on above: Performed By: #### C MP #### [address] [address] Basophils/100 WBC (Bld) 0.6 % Normal 0.0 - 2.0 [facility] Comment on above: Performed By: #### C MP #### [place] [id number] Eosinophils (Bld) [#/Vol] 0.10 10*3/uL Normal 0.00 - 0.70 [facility] Comment on above: Performed By: #### C MP #### [place] [id number] Eosinophils/100 WBC (Bld) 0.8 % Normal 0.0 - 6.0 [facility] Comment on above: Performed By: #### C MP #### [address] [address] Erythrocyte distribution width (RBC) [Ratio] 14.7 % High 11.5 - 14.5 [facility] Comment on above: Performed By: #### C MP #### [address] [address] Hematocrit (Bld) [Volume fraction] 35.3 % Low 36.0 - 46.0 [facility] Comment on above: Performed By: #### C MP #### [address] [address] Hemoglobin (Bld) [Mass/Vol] 11.7 g/dL Low 12.0 - 16.0 [facility] Comment on above: Performed By: #### C MP #### [address] [address] Lymphocytes (Bld) [#/Vol] 1.90 10*3/uL Normal 1.20 - 4.80 [facility] Comment on above: Performed By: #### C MP #### [address] [address] Lymphocytes/100 WBC (Bld) 18.6 % Normal 13.0 - 44.0 [facility] Comment on above: Performed By: #### C MP #### [address] [address] MCHC (RBC) [Mass/Vol] 33.0 g/dL Normal 32.0 - 36.0 [facility] Comment on above: Performed By: #### C MP #### [address] [address] MCV (RBC) [Entitic vol] 88 fL Normal 80 - 100 [facility] Comment on above: Performed By: #### C MP #### [address] [address] Monocytes (Bld) [#/Vol] 0.50 10*3/uL Normal 0.10 - 1.00 [facility] Comment on above: Performed By: #### C MP #### [address] [address] Monocytes/100 WBC (Bld) 5.1 % Normal 2.0 - 10.0 [facility] Comment on above: Performed By: #### C MP #### [address] [address] Neutrophils (Bld) [#/Vol] 7.50 10*3/uL Normal 1.20 - 7.70 [facility] Comment on above: Result Comment: Perc ent differential counts (%) should be interpreted in the context of the absolute cell counts (cells/L). Performed By: #### C MP #### [address] [address] Neutrophils/100 WBC (Bld) 74.9 % Normal 40.0 - 80.0 [facility] Comment on above: Performed By: #### C MP #### [address] [address] NUCLEATED RBC 0.1 /100 WBC Normal [facility] Comment on above: Performed By: #### C MP #### [address] [address] Platelets (Bld) [#/Vol] 291 10*3/uL Normal 150 - 450 [facility] Comment on above: Performed By: #### C MP #### [address] [address] RBC 4.02 x10E12/L Normal 4.00 - 5.20 [facility] Comment on above: Performed By: #### C MP #### [address] [address] WBC (Bld) [#/Vol] 10.0 10*3/uL Normal 4.4 - 11.3 [facility] Comment on above: Performed By: #### C MP #### [address] [address] Consult-Gynecology/Obstetric son 05-09-2022 Consult-Gynecology/O bstetrics Service: Service: Gynecology/Obstetrics Consult: Consult requested by (Attending Name): Dr. River. Reason: Post headache History of Present Illness: HPI: ROHAN MCCARTNEY is a 21 year old Female 4 para 3 who is 1 week post vaginal delivery. Patient reports that she was discharged from the hospital 5 days ago. Patient reports she began having a headache approximately 2 days ago and she has been taking Tylenol and Motrin with no improvement. Patient reports that the headache is constant is and is 6 out of 10 patient reports that throughout the she has had headaches which she does not suffer from outside of . She has been evaluated numerous times during the for preeclampsia and her work-up has been negative. Additionally the patient has been on labor and delivery several times prior to delivery with headaches that have responded to a headache cocktail including Tylenol Benadryl and Reglan. Patient denies scotomata. Patient denies nausea vomiting or GI upset. Patient reports the last time she took ibuprofen which was 600 mg was last night. She reports this afternoon around 1:00 she took 1000 mg of Tylenol. Patient is currently breast-feeding and has no additional concerns today. Review Family/Social History and ROS: Social History: Smoking Status: former smoker (1) Alcohol Use: denies(1) Drug Use: denies (1) Allergies: Singulair: Other Latuda: Other Latex: Swelling/Edema, Rash Objective: Physical Exam by System: Constitutional: Awake alert in no acute distress Head/Neck: Good range of motion Respiratory/Thorax: Breathing comfortably Cardiovascular: Good capillary refill Musculoskeletal: Mobility of her extremities Neurological: Reflexes +1 with no clonus Psychological: Appropriately oriented with normal mood and affect Recent Lab Results: Results: I have reviewed these laboratory results: Hepatic Function Panel 09-May-2022 14:48:00 ResultValue Aspartate Transaminase, Serum 17 ALB 3.6 T Bili 0.4 Bilirubin, Serum Direct - Conjugated 0.1 ALKP 81 Alanine Aminotransferase, Serum 20 T Pro 6.5 Complete Blood Count + Differential 09-May-2022 14:48:00 ResultValue White Blood Cell Count 10.0 Nucleated Erythrocyte Count 0.1 Red Blood Cell Count 4.02 HGB 11.7 L HCT 35.3 L MCV 88 MCHC 33.0 PLT 291 RDW-CV 14.7 H Neutrophil % 74.9 Lymphocyte % 18.6 Monocyte % 5.1 Eosinophil % 0.8 Basophil % 0.6 Neutrophil Count 7.50 Lymphocyte Count 1.90 Monocyte Count 0.50 Eosinophil Count 0.10 Basophil Count 0.10 Basic Metabolic Panel 09-May-2022 14:48:00 ResultValue Glucose, Serum 85 NA 140 K 3.9 CL 110 H Bicarbonate, Serum 22 Anion Gap, Serum 12 BUN 17 CREAT 0.83 GFR Female >90 Calcium, Serum 8.8 Urinalysis with Culture if Indicated 09-May-2022 14:48:00 ResultValue Color, Urine Straw Reference Range: STRAW,YELLOW Appearance, Urine CLEAR Specific [place], Urine 1.009 pH, Urine 7.0 Protein, Urine NEGATIVE Glucose, Urine NEGATIVE Blood, Urine LARGE(3+) A Ketones, Urine NEGATIVE Bilirubin, Urine NEGATIVE Urobilinogen, Urine <2.0 Nitrite, Urine Negative Leukocyte Esterase, Urine LARGE(3+) A Urinalysis, Microscopic 09-May-2022 14:48:00 ResultValue White Cells 38 A Red Blood Cells 32 A Epithelial Cells, Squamous 1 Bacteria, Urine 1+ A Magnesium, Serum 09-May-2022 14:48:00 ResultValue Magnesium, Serum 1.93 Assessment: Patient is a 22-year-old 4 para 3 who is 1 week post vaginal delivery. The patient resents to the emergency room with a headache and mild elevations in her blood pressure. She has been checking her blood pressures at home and does not report any in the severe range. Patient has previously had significant headaches in the third trimester that have responded to Reglan Benadryl and Tylenol. Discussed with maternal- medicine. We will try the cocktail once again as well as Imitrex if patient does not respond then we will admit her to labor and delivery for magnesium x24 hours. If patient responds to the headache cocktail we will discharge her home with monitoring her blood pressure 2-3 times a day she has precautions as when to call us if she has severe range blood pressures in the range of 160/110 otherwise we will follow her in the office in 72 hours. Electronic Signatures: Aidan Multani) (Signed 09-May-2022 17:25) Authored: Service, History of Present Illness, Review Family/Social History and ROS, Allergies, Objective, Assessment/Recommendatio ns, Note Completion Last Updated: 09-May-2022 17:25 by Aidan Multani) References: 1. Data Referenced From Risk Screen - Adult Emergency 09-May-2022 15:58 Normal [facility] HEPATIC FUNCTION PANELon Albumin [Mass/Vol] 3.6 g/dL Normal 3.4 - 5.0 [facility] Comment on above: Performed By: #### H EPFP #### [address] [address] ALP [Catalytic activity/Vol] 81 U/L Normal 33 - 110 [facility] Comment on above: Performed By: #### H EPFP #### [address] [address] ALT [Catalytic activity/Vol] 20 U/L Normal 7 - 45 [facility] Comment on above: Result Comment: Kimberly ents treated with Sulfasalazine may generate falsely decreased results for ALT. Performed By: #### H EPFP #### [address] [address] AST [Catalytic activity/Vol] 17 U/L Normal 9 - 39 [facility] Comment on above: Performed By: #### H EPFP #### [address] [address] Bilirubin [Mass/Vol] 0.4 mg/dL Normal 0.0 - 1.2 [facility] Comment on above: Performed By: #### H EPFP #### [address] [address] Bilirubin.indirect [Mass/Vol] 0.1 mg/dL Normal 0.0 - 0.3 [facility] Comment on above: Performed By: #### H EPFP #### [address] [address] Protein [Mass/Vol] 6.5 g/dL Normal 6.4 - 8.2 [facility] Comment on above: Performed By: #### H EPFP #### [address] [address] MAGNESIUMon 05-09-2022 Magnesium [Mass/Vol] 1.93 mg/dL Normal 1.60 - 2.40 [facility] Comment on above: Performed By: #### H EPFP #### [address] [address] Provider Note - ED v3on 04-22 Provider Note - ED v3 Provider Note: Chart Review: ED NOTES ED NOTES: History of Present Illness: 21-year-old G4, P3 1 week presents with concern for elevated blood pressure and headache. Patient states that throughout this she had issues with her kidneys were her potassium be very low and her magnesium would be very low. Patient was actually admitted at 1 point for flank pain with a negative work-up. States that with her most previous she did have preeclampsia and was on Procardia for 6 weeks following her . Had no issues with elevated blood pressure with this . Patient denies any chest pain, shortness of breath, nausea, vomiting, abdominal pain, vaginal bleeding or discharge. Past Medical History: Preeclampsia, depression/anxiety Past surgical History: TM tubes. Tonsils and adenoids. Family history: Reviewed and not pertinent to complaint Social history: Denies any drugs, alcohol, tobacco abuse. __ REVIEW OF SYSTEMS: Pertinent negatives and positives noted in the HPI. Otherwise, a complete review of system was negative. __ PHYSICAL EXAM: Appearance: Alert, oriented , cooperative, in no acute distress. Skin: Intact, dry skin, no lesions, rash, petechiae or purpura. Eyes: PERRLA, EOMs intact, Conjunctiva pink with no redness or exudates. HENT: Normocephalic, atraumatic. Nares patent. No intraoral lesions. Neck: Supple, without meningismus. Trachea at midline. No lymphadenopathy. Pulmonary: Clear bilaterally with good chest wall excursion. No rales, rhonchi or wheezing. No accessory muscle use or stridor. Cardiac: Regular rate and rhythm, no rubs, murmurs, or gallops. Abdomen: Abdomen is soft, nontender, and nondistended. No palpable organomegaly. No rebound or guarding. No CVA tenderness. Nonsurgical abdomen Genitourinary: Exam deferred. Musculoskeletal: Full range of motion. Pulses full and equal. No cyanosis, clubbing, or edema. Neurological: Cranial nerves are grossly intact, grossly normal sensation, no weakness, no focal findings identified. Psychiatric: Appropriate mood and affect. HISTORY OF PRESENTING ILLNESS ROHAN is a 21 year old Female and was seen by me at 09-May-2022 14:18. Triage Information: Most recent Vital Sign Value Date Temp (F): 97.3 05-09-2022 14:34 Temp (C): 36.2 05-09-2022 14:34 Heart Rate (beats/min): 65 05-09-2022 14:34 Respirations (breaths/min): 16 05-09-2022 14:34 SpO2 (%): 97 05-09-2022 14:34 BP Systolic (mm Hg): 132 05-09-2022 14:34 BP Diastolic (mm Hg): 85 05-09-2022 14:34 PAST MEDICAL HISTORY ALLERGIES/INTOLERANCES: Allergy Allergen: Singulair Type: Drug Reaction: Other Allergen: Latuda Type: Drug Reaction: Other Allergen: Latex Type: Latex Reaction: Swelling/Edema Rash HEALTH HISTORY: No documented data. OUTPATIENT MEDICATIONS: Home Medications Review Status for Reconciliation: Complete Med Status: Patient Currently Takes Medications Drug Name: CeleXA 20 mg oral tablet Instructions: 1 tab(s) orally once a day Drug Name: ibuprofen 600 mg oral tablet Instructions: 1 tab(s) orally every 6 hours as needed pain Drug Name: acetaminophen 500 mg oral tablet Instructions: 2 tab(s) orally every 6 hours, As Needed Drug Name: cyclobenzaprine 5 mg oral tablet Instructions: 1 tab(s) orally 3 times a day, As Needed SIGNIFICANT EVENTS: Immunizations Description:Tdap Description:Tdap Description:Tdap Description:Tdap CRITICAL CARE RESULTS: Recent Lab Results: I have reviewed these laboratory results: Hepatic Function Panel 09-May-2022 14:48:00 ResultValue Aspartate Transaminase, Serum 17 ALB 3.6 T Bili 0.4 Bilirubin, Serum Direct - Conjugated 0.1 ALKP 81 Alanine Aminotransferase, Serum 20 T Pro 6.5 Complete Blood Count + Differential 09-May-2022 14:48:00 ResultValue White Blood Cell Count 10.0 Nucleated Erythrocyte Count 0.1 Red Blood Cell Count 4.02 HGB 11.7 L HCT 35.3 L MCV 88 MCHC 33.0 PLT 291 RDW-CV 14.7 H Neutrophil % 74.9 Lymphocyte % 18.6 Monocyte % 5.1 Eosinophil % 0.8 Basophil % 0.6 Neutrophil Count 7.50 Lymphocyte Count 1.90 Monocyte Count 0.50 Eosinophil Count 0.10 Basophil Count 0.10 Basic Metabolic Panel 09-May-2022 14:48:00 ResultValue Glucose, Serum 85 NA 140 K 3.9 CL 110 H Bicarbonate, Serum 22 Anion Gap, Serum 12 BUN 17 CREAT 0.83 GFR Female >90 Calcium, Serum 8.8 Urinalysis with Culture if Indicated 09-May-2022 14:48:00 ResultValue Color, Urine Straw Reference Range: STRAW,YELLOW Appearance, Urine CLEAR Specific [place], Urine 1.009 pH, Urine 7.0 Protein, Urine NEGATIVE Glucose, Urine NEGATIVE Blood, Urine LARGE(3+) A Ketones, Urine NEGATIVE Bilirubin, Urine NEGATIVE (more content not included)... Normal [facility] Risk Screen - Adult Emergenc yon 05-09-2022 Risk Screen - Adult Emergency Preferred Language: Preferred Language: Preferred Language for Discussing Health Care (patient/designee)Alirio mixon Patient Preferred Pharmacy: Patient Preferred Pharmacy Statement: I have reviewed and updated the patient's preferred pharmacy selection for today's visit. Advanced Directives: Advance Directive/DNRno Family Violence Adult: Abuse Screen: Are you or have you been threatened or abused physically, emotionally, or sexually by anyoneno Learning Assessment (Patient): Learning Assessment (Patient): Patient is Able to be Assessed for Learningyes Factors Influencing Readiness to Learninterest in learning Factors that Impact Ability to Learnnone Devices/Methods Used to Communicatenone Learning Preferencesverbal instruction Cultural Considerationsnone Developmental Considerationsnone Voodoo Considerationsnone Learning Assessment (Other Learner): Learning Assessment (Other Learner): Other learner availableno Pressure Injury/TB/Substance: Pressure Injury: Pressure Injury Present on Admissionno Do you have a coughno Smoking Statusformer smoker Alcohol Usedenies Drug Usedenies Admission Risk Screen: Significant IndicatorsComplete CAGE: CAGE: Is this an injured patient at a Trauma Center ([facility]/[place] /[place]): no Electronic Signatures: Amy Brownlee (CONCHITA) (Signed 09-May-2022 15:59) Authored: Preferred Language, Patient Preferred Pharmacy, Advanced Directives, Family Violence Adult, Learning Assessment (Patient), Learning Assessment (Other Learner), Pressure Injury/TB/Substance, Pressure Injury, CAGE Last Updated: 09-May-2022 15:59 by Amy Brownlee (CONCHITA) Normal [facility] UA MICROSCOPICon 05-09-2022 BACTERIA 1+ /HPF Abnormal [facility] Comment on above: Performed By: #### C MP #### [id number] [place] [address] RBC 32 /HPF Abnormal 0-5 [facility] Comment on above: Performed By: #### C MP #### [address] [address] SQUAMOUS EPITH. CELLS 1 /HPF Normal [facility] Comment on above: Performed By: #### C MP #### [address] [address] WBC 38 /HPF Abnormal 0-5 [facility] Comment on above: Performed By: #### C MP #### [id number] URINALYSIS WITH CULTURE IF I NDICATEDon 05-09-2022 Appearance (U) CLEAR Normal CLEAR [facility] Comment on above: Performed By: #### H EPFP #### [address] [address] Bilirubin Ql (U) Negative Normal NEGATIVE [facility] Comment on above: Performed By: #### H EPFP #### [address] [address] Color (U) Straw Normal STRAW,YELLOW [facility] Comment on above: Performed By: #### H EPFP #### [address] [address] Glucose Ql (U) Negative Normal NEGATIVE [facility] Comment on above: Performed By: #### H EPFP #### [address] [address] Hemoglobin Ql (U) LARGE(3+) Abnormal NEGATIVE [facility] Comment on above: Performed By: #### H EPFP #### [address] [address] Ketones Ql (U) Negative Normal NEGATIVE [facility] Comment on above: Performed By: #### H EPFP #### [address] [address] Leukocyte esterase Test strip Ql (U) LARGE(3+) Abnormal NEGATIVE [facility] Comment on above: Performed By: #### H EPFP #### [address] [address] Nitrite Ql (U) Negative Normal NEGATIVE [facility] Comment on above: Performed By: #### H EPFP #### [address] [address] pH (U) 7.0 [pH] Normal 5.0 - 8.0 [facility] Comment on above: Performed By: #### H EPFP #### [address] [address] Protein Ql (U) Negative Normal NEGATIVE [facility] Comment on above: Performed By: #### H EPFP #### [address] [address] Specific gravity (U) [Rel density] 1.009 Normal 1.005 - 1.035 [facility] Comment on above: Performed By: #### H EPFP #### [address] [address] Urobilinogen (U) [Mass/Vol] mg/dL Normal 0.0 - 1.9 [facility] Comment on above: Performed By: #### H EPFP #### [address] [address] URINE CULTURE,BACTERIALon URINE CULTURE,BACTERIAL PATIENT: ROHAN MCCARTNEY LOCATION: [facility]#: [id number] : 89 AGE: SEX: F ORDERED BY: [facility] [place] SOURCE: URINE COLLECTED: 05/09/22 14:48 ANTIBIOTICS AT LU.: RECEIVED : 05/10/22 18:03 SITE: R E S U L T S URINE CULTURE,BACTERIAL FINAL 05/11/22 11:00 NO SIGNIFICANT GROWTH. Normal [facility] Comment on above: Performed By: #### U RIN ####[id number] [place] [address] Daily Progress Note - OB-Pos t-partumon 05-04-2022 Daily Progress Note - GZ-[id number] Current Stage: Stage: Post- Subjective Data: Post : Ambulate: Yes Flatus: Yes Tolerate Diet: Yes Lochia: Moderate : Patient doing well. Pain controlled. Bleeding stable. Breast-feeding. Denies any fevers chills chest pain shortness of breath or calf pain. Denies any headaches Objective Information: Objective Information: T PRBPMAPSpO2 [id number]% Date/Time05/04 4: 4: 4: 4: 4: 4:43 Range(36.5C - 36.8C ) (73 - 85 ) (16 - 18 ) (110 - 125 )/ (58 - 79 ) (82 - 97 ) (98% - 99% ) Pain reported at 05/04 4:43: 0 = None Physical Exam: Constitutional: alert, oriented Obstetric: Uterus firm umbilicus Eyes: pupils equal, sclerae clear Respiratory/Thorax: Clear to auscultation bilaterally Cardiovascular: Regular rate rhythm Gastrointestinal: Soft positive bowel sound probably tender nondistended Extremities: Negative calf pain Skin: no rashes or lesions Assessment and Plan: Assessment: 1)PPD#2-meeting milestones for discharge 2) DVT prophylaxis-sCDs ambulation Lovenox Electronic Signatures: Darnell Odell) (Signed 04-May-2022 07:14) Authored: Current Stage, Subjective Data, Objective Data, Assessment and Plan, Note Completion Last Updated: 04-May-2022 07:14 by Darnell Odell () Normal [facility] CBCon 05-03-2022 Erythrocyte distribution width (RBC) [Ratio] 14.6 % High 11.5 - 14.5 [facility] Comment on above: Performed By: #### C BC #### [address] [address] Hematocrit (Bld) [Volume fraction] 31.8 % Low 36.0 - 46.0 [facility] Comment on above: Performed By: #### C BC #### [address] [address] Hemoglobin (Bld) [Mass/Vol] 10.7 g/dL Low 12.0 - 16.0 [facility] Comment on above: Performed By: #### C BC #### [address] [address] MCHC (RBC) [Mass/Vol] 33.6 g/dL Normal 32.0 - 36.0 [facility] Comment on above: Performed By: #### C BC #### [address] [address] MCV (RBC) [Entitic vol] 88 fL Normal 80 - 100 [facility] Comment on above: Performed By: #### C BC #### [address] [address] Platelets (Bld) [#/Vol] 202 10*3/uL Normal 150 - 450 [facility] Comment on above: Performed By: #### C BC #### [address] [address] RBC 3.61 x10E12/L Low 4.00 - 5.20 [facility] Comment on above: Performed By: #### C BC #### [address] [address] WBC (Bld) [#/Vol] 12.9 10*3/uL High 4.4 - 11.3 [facility] Comment on above: Performed By: #### C BC #### [address] [address] Daily Progress Note - OB-Pos t-partumon 05-03-2022 Daily Progress Note - BI-Koyf-utgdij Current Stage: Stage: Post- Subjective Data: Post : Ambulate: Yes Flatus: Yes Tolerate Diet: Yes Lochia: Moderate : Patient doing well. Pain controlled. Working on breast-feeding. Denies any fevers chills chest pain shortness of breath or calf pain. Patient had some headaches before delivery which she notes are gone. Objective Information: Objective Information: T PRBPMAPSpO2 [id number]% Date/Time05/03 5: 7: 5: 7: 7: 7:41 Range(36.5C - 37.1C ) (71 - 119 ) (16 - 20 ) (98 - 143 )/ (55 - 100 ) (74 - 117 ) (88% - 100% ) Highest temp of 37.1 C was recorded at 05/02 14:12 Pain reported at 05/03 6:00: denies needs at this time Physical Exam: Constitutional: alert, oriented Obstetric: Uterus firm below umbilicus Respiratory/Thorax: Clear to auscultation bilaterally Cardiovascular: Regular rate rhythm Gastrointestinal: Soft positive bowel sound appropriately tender nondistended Extremities: Negative calf pain Skin: no rashes or lesions Recent Lab Results: Results: CBC: 05/03/2022 05:37 \ Hgb / \ 10.7 L / WBC Plt 12.9 H 202 / Hct \ / 31.8 L \ RBC: 3.61 L MCV: 88 Assessment and Plan: Assessment: 1) day #1-patient doing well. Pain controlled. Bleeding stable. Working on breast-feeding. 2) DVT prophylaxis-SCDs ambulation Lovenox Electronic Signatures: Darnell Odell) (Signed 03-May-2022 07:50) Authored: Current Stage, Subjective Data, Objective Data, Assessment and Plan, Note Completion Last Updated: 03-May-2022 07:50 by Darnell Odell) [facility] Discharge [id number] Discharge Profile2 Discharge Orders: Anticipated Discharge Date: Anticipated Discharge [id number] DNAR: Code Status at Discharge: Full Code : Call 911: Call 911 or go to the nearest emergency room RIGHT AWAY if you have:. Chest pain or pressure; heart racing. Shortness of breath or difficulty breathing. Seizures; change in alertness or confusion. Thoughts of hurting yourself or someone else. Call Provider: Call your OB Provider if you have: (If you can't reach your healthcare provider, call 911 or go to an emergency room). Heavy bleeding. Soaking a large pad every hour or passing large clots. Incision that is not healing, is red or more painful, or has pus (if you have an incision). Red or swollen leg that is painful or warm to touch. Temperature of 100.4 degrees F or higher; bad-smelling vaginal blood or discharge. Headache that does not get better, even after taking medicine; bad headache with vision changes; pain in the upper right area of your belly. Signs of Depression. Examples include: 1. Persistent sadness 2. Frequent crying 3. Sleep problems 4. Excessive worrying 5. Feeling unable to cope. Red or swollen breast that is painful or warm to touch. Pain, burning, or difficulty with emptying your bladder. Severe constipation (more than 5 days). Trust your instincts. Always get medical care if you are not feeling well or have questions or concerns.. Activity: Return to normal activity as tolerated. Patient Instructions: Pelvic Rest: DO NOT place anything in vagina until cleared by OB Provider. Blood Pressure: Any Blood Pressure Systolic (upper number) 160 or higher OR Diastolic (bottom number) 110 or higher, call your doctor or kilnman immediately. Blood Pressure Systolic (upper number) 150 - 159 OR Diastolic (bottom number) 100 - 109, repeat in one hour. If repeat Blood Pressure Systolic 150 - 159 OR Diastolic 100 - 109, call your doctor or kilnman to discuss blood pressure management.. Diet: Regular. Follow-Up - OB Provider: Physician/Dept/ServiceOB Provider Call to Schedule in6 weeks, Provider FINAL REVIEW of Orders: Final Review: Final Review of Medication Reconciliation and Orders Completedby Physician Reviewing Sheyla Odell DO at 03-May-2022 07:42:25 Other Clinician Instructions: Other Instructions: Other Clinician InstructionsAny woman can have complications after the of a baby including a blood clot, a heart problem, hypertensive disorder/eclampsia, depression, hemorrhage, or infection. Notify all providers of your delivery date up to one year after .* Call 911 or go to nearest emergency room right away if you have: PAIN or pressure in chest; OBSTRUCTED breathing or shortness of breath; SEIZURES; THOUGHTS of hurting yourself or your baby; heart palpitations/racing; change in alertness/confusion. Call your provider if you have: BLEEDING, soaking through a pad/hour, or blood clots the size of an egg or bigger; INCISION (episiotomy stitches or site) that is not healing (increased redness, pain, drainage/pus, or separation); RED or swollen leg/calf that is painful or warm to touch, especially in one leg more than the other; TEMPERATURE of 100.4 F or higher or chills; HEADACHE that does not get better with medicine, rest or hydration, or bad headache with vision changes like spots or flashing lights; increased swelling of face, hands or legs; severe cramps or upper right belly pain; red or swollen breast that is painful or warm to touch; an unusual, foul odor from your vaginal discharge; pain, burning, or difficulty during urination; severe constipation (more than 5 days); feelings of depression (such as depressed mood, loss of interest in enjoyable things, unable to care for yourself, trouble sleeping, lack of appetite, or feeling worthless). If you cant reach your provider or symptoms worsen, call 911 or go to nearest emergency room. *Information obtained from [facility]: Save Your Life: Get Care for These POST- Warning Signs On Behalf on the [facility] Maternity Staff, Congratulations on your infant. It was our pleasure to take care of you and your during your stay. We hope during this stay that we have exceeded all of your expectations. We will be calling you in a few days to check up on you and your . Please allow us to speak with you and please ask questions or let us know if you have any concerns. If you need any assistance after you go home please give us a call. Also, please join our [facility] Support Group which meets the sunday of every month at 10 am in the OB unit. No need to register. If you have any questions please call us at [phone]. Again, Congratulations! Warmest Regards, [facility]'s Maternity Staff Electronic (more content not included)... [facility] Hearing Screen - Newbornon 1 Hearing Screen - This report has been cancelled. [facility] Order Reconciliationon 05-03 Order Reconciliation Page 1 Discharge Reconciliation Document Reconciliation Type: Discharge requested on behalf of Darnell Odell (Physician) done by Darnell Odell (DO) Discharge - Reconciliation: 03-May-2022 07:43 by: Darnell Odell (DO) Home Medications EnteredHOME MEDICATIONS AT DISCHARGE DateReconciliation Comment/ Additional Information CeleXA 20 mg oral tablet 1 tab(s) orally once a day 05-Mar-2022 20:13 CeleXA 20 mg oral tablet 1 tab(s) orally once a day 05-Mar-2022 20:13 CeleXA 20 mg oral tablet is continued as CeleXA 20 mg oral tablet Current OrdersDateHOME MEDICATIONS AT DISCHARGE DateReconciliation Comment/ Additional Information Acetaminophen Tablet (TYLENOL)DOSE = 975 mg Oral Every 6 HoursClinician Notes: Give with Ibuprofen. 02-May-2022 16:54 Acetaminophen is not required Benzocaine 20% - Menthol 0.5% Topical [place] (DERMOPLAST)DOSE = 1 application(s) Topical 4 Times a Day, PRN DiscomfortApply to Perianal Area 02-May-2022 16:54 Benzocaine 20% - Menthol 0.5% Topical is not required Bisacodyl Rectal Suppository (DULCOLAX)DOSE = 10 mg Rectal Daily, PRN Severe constipation 02-May-2022 16:54 Bisacodyl Rectal is not required Carboprost IntraMuscular (HEMABATE)DOSE = 250 microgram(s) IntraMuscular Once, PRN post bleeding in non-asthmatic patientClinician Notes: Consult provider prior to administration. 02-May-2022 16:54 Carboprost IntraMuscular is not required diphenhydrAMINE Capsule (BENADRYL)DOSE = 25 mg Oral Every 6 Hours, PRN Itching 02-May-2022 16:54 diphenhydrAMINE is not required Docusate Capsule (COLACE)DOSE = 100 mg Oral 2 Times a Day, PRN Stool Softening 02-May-2022 16:54 Docusate is not required Enoxaparin SubCutaneous (LOVENOX)DOSE = 60 mg SubCutaneous Every 24 HoursClinician Notes: Wait 4 hours after neuraxial catheter removal AND 24 hours after placement of neuraxial catheter. BMI 40-49.9. 02-May-2022 16:54 Enoxaparin SubCutaneous is not required Escitalopram Tablet (LEXAPRO)DOSE = 10 mg Oral DailyClinician Notes: Therapeutic Interchange for Celexa 20 mg daily 02-May-2022 07:26 Escitalopram is not required fentaNYL 2 mcg/mL - Bupivacaine 0.0625% PCEA DEMAND/ PCEA Dose = 3BASAL/ Continuous Rate = 10One Hour Dose Limit = 19 mL/hr mL per hourNotes from Pharmacy: [Fentanyl 2 mcg/mL - Bupivacaine 0.0625%] 02-May-2022 14:41 fentaNYL 2 mcg/mL - Bupivacaine 0.0625% PCEA is not required hydrALAZINE (APRESOLINE) Injectable DOSE = 5 mg IntraVenous Push Once, PRN Acute-onset, severe HTN w/out known, suspected CADClinician Notes: Consult provider prior to administration. Push over more than 2 minutes. Systolic greater than or equal to 16 02-May-2022 16:54 hydrALAZINE (APRESOLINE) Injectable is not required Ibuprofen Tablet (ADVIL, MOTRIN)DOSE = 600 mg Oral Every 6 HoursClinician Notes: Give with Acetaminophen. 02-May-2022 16:54 ibuprofen 600 mg oral tablet 1 tab(s) orally every 6 hours as needed pain 03-May-2022 07:43 Prescription is created for ibuprofen 600 mg oral tablet Labetalol Injectable (TRANDATE)DOSE = 20 mg IntraVenous Push Once, PRN Acute-onset, sev HTN w/o active asthma, eliel<60Clinician Notes: Consult provider prior to administration. Push over more than 2 minutes. Systolic greater than or equal to 160 OR 02-May-2022 16:54 Labetalol Injectable is not required Lanolin Topical Ointment (LANSINOH)DOSE = 1 application(s) Topical Every 24 Hours, PRN Dry SkinApply to NippleClinician Notes: After and PRN 02-May-2022 16:54 Lanolin Topical is not required Loperamide Capsule (IMODIUM)DOSE = 4 mg Oral Every 2 Hours, PRN If Carboprost given or loose stoolsClinician Notes: Max dose of 16mg / 24 hours 02-May-2022 16:54 Loperamide is not required Magnesium Hydroxide -Al Hydrox -Simethicone Oral Liquid (MAALOX)DOSE = 30 mL Oral Every 4 Hours, PRN Indigestion 02-May-2022 16:54 Magnesium Hydroxide -Al Hydrox -Simethicone Oral Liquid is not required Magnesium Hydroxide Oral Liquid CONCENTRATE (MILK OF MAGNESIA)DOSE = 10 mL Oral Every 24 Hours, PRN Constipation 02-May-2022 16:54 Magnesium Hydroxide Oral Liquid CONCENTRATE is not required Measles -Mumps -Rubella (Live) MMR Vaccine DOSE = 0.5 mL SubCutaneous Once, PRN if patient screen is non- immune or equivocalClinician Notes: administer if patient screen is non- immune or equivocal 02-May-2022 16:54 Measles -Mumps -Rubella (Live) MMR Vaccine is not required medroxyPROGESTERone Injectable (PROVERA)DOSE = 150 mg IntraMuscular Once, PRN contraceptionClinician Notes: Before DischargeNotes from Pharmacy: Low Risk Hazardous Drug- Single Nitrile Glove 02-May-2022 16:54 medroxyPROGESTERone Injectable is not required Metoclopramide Injectable (REGLAN)DOSE = 10 mg IntraVenous Push Every 6 Hours, PRN persistent PONV if first line ineffective 02-May-2022 16:54 Metoclopramide Injectable is not required miSOPROStol IntraVaginal Tablet (CYTOTEC)DOSE = 25 microgram(s) IntraVaginal Every 3 Hour (more content not included)... Normal [facility] Admission Risk Screen - OBon 05-02-2022 Admission Risk Screen - OB Allergies: Allergies: Singulair: Other Latuda: Other Latex: Swelling/Edema, Rash Patient Verification: New W ID Band Applied in my Departmentyes Patient Identity Verified Bypatient ID Band FULL Name, include Middle, spelling matches patient's ID used for verificationyes ID Band Matches Patient ID used for Verficationyes ID Band MRN Matches EMR MRNyes Visitor Restriction: Coronavirus Visitor Restriction: Reasonable restrictions to in-person visitors will be observed due to current coronavirus pandemic. Travel History: COVID-19 Screening Completedno exposure or symptoms Travel or Exposure Past 30 DaysNO travel to International locations in the past 30 days Advance Directive: Advance Directive/DNRno Advance Directive Information Givenpatient/family declined Persaud Fall Screen: History of falling (immediate or previous)no (0) Secondary Diagnosisno (0) Intravenous Therapy/ Heparin/Saline Lockyes (20) Gait/Transferringnormal/ bedrest/wheelchair (0) Ambulatory Aidsnone/bedrest/nurse assist (0) Mental Statusoriented to own ability (0) Score: Low risk (<25). Moderate risk (25-44). High risk (>44).20 Persaud InterventionsLOW INTERVENTIONS: *patient oriented to surroundings and call system, * patient/family falls education completed and documented, *patients fall status communicated during bedside handoff, *whiteboard updated, *mode of toileting discussed with patient, *bed in low position with brakes locked, *call light in reach, * non-skid footwear Functional screen: Functional Screen: In the recent/past 2-4 weeks, patient or family have noticedno issues that require a rehabilitation consult at this time Learning Assessment (Patient): Patient is Able to be Assessed for Learningyes Factors Influencing Readiness to Learnanxiety; interest in learning; motivation to learn Factors that Impact Ability to Learnnone Devices/Methods Used to Communicatenone Learning Preferenceswritten material; verbal instruction Cultural Considerationsnone Developmental Considerationsnone Voodoo Considerationsnone Learning Assessment (Other Learner): Other learner availableno Nutrition Risk Screen: Nutrition Risk Screenno indicators present Nutrition Consult needed this visitno Can Patient Participate in Room Serviceyes Pain Screen: Pain Control Method: Laborepidural Pain Control Method: Postpartummedication Pain Scalenumerical 0-10 Pain Scale Educationteaching provided Acceptable Pain Level6 = Moderate Expression of Pain (nonverbal)verbalization Chronic Painno Skin - Price Scale: Price Scale (daily): Price: Sensory Perception (response to environment)(4) no impairment Price: Moisture (degree skin exposed to moisture)(4) rarely moist Price: Activity (ability to walk)(4) walks frequently Price: Mobility (amount/control of body movement)(4) no limitation Price: Nutrition (quality of food intake)(3) adequate Price: Friction and Shear(3) no apparent problem Price: Score22 Pressure Injury Present on Admissionno Spiritual Screen: Are there any cultural, spiritual, samaritan practices/values/needs that are important for us to knowno Depression Screen: During the past month, have you often been bothered by feeling down, depressed or hopelessno During the past month, have you often had little interest or pleasure in doing thingsno Have you had any thoughts of harming anyone elseno [place] Suicide: Risk Screen Not Applicable/Able to Answerable to be screened In the Past Month: Have you wished you were or could go to sleep and not wake upno In the Past Month: Have you had any actual thoughts of killing yourselfno Lifetime: Have you ever done, started to do, or prepared to do anything to end your lifeno [place] Suicide Risknegative Family Violence Screen: Are you or have you been threatened or abused physically, emotionally, or sexually by anyoneno Do you feel UNSAFE going back to the place where you are livingno Clinical assessment: Are there any apparent signs of injuries/behaviors that could be related to abuse/neglectno Social Service Consult for abuse/neglect needed this visitno Vaccinations: Vaccination - Influenza Vaccination Screen: Is it flu season (between and October 20)Yes Screening for identified contraindications to influenza vaccination patient/caregiver refusal Vaccination - Pneumonia Vaccination Screen: Patient has received a previous pneumonia vaccine:no/unknown... Immunocompetent persons with underlying chronic conditions or reside in jail care facilitiesnone of these conditions Persons with Functional or Anatomic Asplenianone of these conditions Immunocompromised Personsnone of these conditions Pneumonia vaccine NOT indicated due to:patient DOES NOT have a condition that indicates vaccination Vaccination - TDap Vaccination Screen: Have (more content not included)... Normal [facility] CBCon 05-02-2022 Erythrocyte distribution width (RBC) [Ratio] 14.6 % High 11.5 - 14.5 [facility] Comment on above: Performed By: #### C BC #### [place] [address] Hematocrit (Bld) [Volume fraction] 34.3 % Low 36.0 - 46.0 [facility] Comment on above: Performed By: #### C BC #### [address] [address] Hemoglobin (Bld) [Mass/Vol] 11.4 g/dL Low 12.0 - 16.0 [facility] Comment on above: Performed By: #### C BC #### [address] [address] MCHC (RBC) [Mass/Vol] 33.4 g/dL Normal 32.0 - 36.0 [facility] Comment on above: Performed By: #### C BC #### [address] [address] MCV (RBC) [Entitic vol] 88 fL Normal 80 - 100 [facility] Comment on above: Performed By: #### C BC #### [address] [address] Platelets (Bld) [#/Vol] 219 10*3/uL Normal 150 - 450 [facility] Comment on above: Performed By: #### C BC #### [address] [address] RBC 3.88 x10E12/L Low 4.00 - 5.20 [facility] Comment on above: Performed By: #### C BC #### [address] [address] WBC (Bld) [#/Vol] 10.3 10*3/uL Normal 4.4 - 11.3 [facility] Comment on above: Performed By: #### C BC #### [address] [address] COMPREHENSIVE PANELon 2021 Albumin [Mass/Vol] 3.7 g/dL Normal 3.4 - 5.0 [facility] Comment on above: Performed By: #### C BC #### [address] [address] ALP [Catalytic activity/Vol] 131 U/L High 33 - 110 [facility] Comment on above: Performed By: #### C BC #### [address] [address] ALT [Catalytic activity/Vol] 7 U/L Normal 7 - 45 [facility] Comment on above: Result Comment: Kimberly ents treated with Sulfasalazine may generate falsely decreased results for ALT. Performed By: #### C BC #### [address] [address] Anion gap [Moles/Vol] 16 mmol/L Normal 10 - 20 [facility] Comment on above: Performed By: #### C BC #### [address] [address] AST [Catalytic activity/Vol] 9 U/L Normal 9 - 39 [facility] Comment on above: Performed By: #### C BC #### [address] [address] Bilirubin [Mass/Vol] 0.4 mg/dL Normal 0.0 - 1.2 [facility] Comment on above: Performed By: #### C BC #### [address] [address] Calcium [Mass/Vol] 9.3 mg/dL Normal 8.6 - 10.3 [facility] Comment on above: Performed By: #### C BC #### [address] [address] Chloride [Moles/Vol] 108 mmol/L High 98 - 107 [facility] Comment on above: Performed By: #### C BC #### [address] [address] Creatinine [Mass/Vol] 0.75 mg/dL Normal 0.50 - 1.05 [facility] Comment on above: Performed By: #### C BC #### [address] [address] eGFR FEMALE >90 Normal >90 [facility] Comment on above: Result Comment: CALC ULATIONS OF ESTIMATED GFR ARE PERFORMED USING THE 2020 CKD-EPI STUDY REFIT EQUATION WITHOUT THE RACE VARIABLE FOR THE IDMS-TRACEABLE CREATININE METHODS. https://jasn.asnjournals.org/content/early/ASN.0223208 988 Performed By: #### C BC #### [address] [address] Glucose [Mass/Vol] 134 mg/dL High 74 - 99 [facility] Comment on above: Performed By: #### C BC #### [address] [address] HCO3 (Bld) [Moles/Vol] 17 mmol/L Low 21 - 32 [facility] Comment on above: Performed By: #### C BC #### [address] [address] Potassium [Moles/Vol] 3.4 mmol/L Low 3.5 - 5.3 [facility] Comment on above: Performed By: #### C BC #### [address] [address] Protein [Mass/Vol] 5.9 g/dL Low 6.4 - 8.2 [facility] Comment on above: Performed By: #### C BC #### [address] [address] Sodium [Moles/Vol] 138 mmol/L Normal 136 - 145 [facility] Comment on above: Performed By: #### C BC #### [address] [address] Urea nitrogen [Mass/Vol] 8 mg/dL Normal 6 - 23 [facility] Comment on above: Performed By: #### C BC #### [address] [address] Clinical Event Note-Labor No kendal 05-02-2022 Clinical Event Note-Labor Note Clinical Event: Clinical Event Note: TopicLabor Note Details Cx:/-2 Cat I Toco5-6min 1)IOL- s/p cytotec and patel bulb. PT ARom'ed large clear fluid 2)Karie 3)GBs-Neg 4)Pain-Desires epidural. Electronic Signatures: Darnell Odell) (Signed 02-May-2022 10:57) Authored: Clinical Event Note Last Updated: 02-May-2022 10:57 by Darnell Odell) Normal [facility] Delivery Recordon 05-02-2022 Delivery Record Lab Tests/Results: Labs: Labs: Blood Typed Date: 28-Oct-2021 Blood Type: A positive Antibody Screen Results: negative Chlamydia Date: 28-Oct-2021 Chlamydia Results: negative Gonorrhea Date: 28-Oct-2021 Gonorrhea Results: negative Group B Strep Date: 12-Apr-2022 Strep Results: negative GCT (dd-mmm-yy): 15-Mar-2022 GCT result: 101 HBsAG Date: 28-Oct-2021 HBsAG Results: negative Hemoglobin A1C (dd-mmm-yy): 28-Oct-2021 Hemoglobin A1C: 4.6 % Estimated Average Glucose: 85 HIV Date: 28-Oct-2021 HIV Results: negative Rubella Date: 28-Oct-2021 Rubella Results: immune Rubella Comments: Result Value POSITIVE Syphilis (mmm-dd-yyyy): 02-May-2022 Syphilis Results: negative Urine Spot (dd-mmm-yy): 24-Apr-2022 Total Protein/Creatinine Ratio: 0.3 Delivery Information: [place] A Delivery Information: Baby A Delivery: Rupture of Membranes date/[id number] 10:42 Amniotic Fluid Colorclear Delivery Typevaginal delivery Delivery Locationlabor and delivery Delivery Date/[id number] 16:36 Delivery Date/Time Verified ByBiju ARANGO/Jeff ARANGO Length of Time of ROM (rounded down to nearest hour)5 Sexmale Identification Band [id number] Electronic Transponder [id number] ID Bands Verified byBiju ARANGO/Jeff ARANGO 4th ID band toFOB Weight (kg)3.135 kilogram(s) Length (cm)50.8 centimeter(s) Head Circumference (cm)32 centimeter(s) Chest Circumference (cm)30.5 Delivery of Placenta (hh:mm)16:43 Baby A: Placenta disposaldiscarded 1 Min: Heart Ratemore than 100 beats/min Respiratory Rateweak, irregular Muscle Tonewell flexed Reflex Irritabilitygrimace Colorblue, pale 1 Minute Score, Baby A6 Apgars assessed byTeodoro Calderon RN 5 Min: Heart Ratemore than 100 beats/min Respiratory Rategood, crying Muscle Tonewell flexed Reflex Irritabilitycough or sneeze Colorblue, pale 5 Minute Score, Baby A8 Apgars assessed byTeodoro Calderon RN Resuscitation Efforts: Vigorous at Birthno Resuscitation Effortstactile stimulation Baby A: Transfer Baby A: Transfer toRemains with mother Baby A: Labs [id number] Delivery Team: Brenda Calderon RN Electronic Signatures: Teodoro Calderon (CONCHITA) (Signed 02-May-2022 20:04) Authored: Delivery Information Alejandra Blanton) (Signed 02-May-2022 17:38) Authored: Lab Tests/Results, [place] Delivery Information Last Updated: 02-May-2022 20:04 by Teodoro Calderon) [facility] Discharge Planning [id number] 1 Discharge Planning Note2 Discharge Planning: Anticipated Discharge [id number] Discharge Planning Date and Time: 05/02/22 Discharge Planning initiated on admission and formally reevaluated at this time. Patient independent with ambulation and ADL's prior to admission. Additional home going needs anticipated at this time: None. Handouts given to and reviewed with patient/caregiver per unit folder standards. Patient verbalizes understanding and denies any other post-discharge needs. Plan to continue to assess home going/discharge needs. Coordinate with interdisciplinary team as needed. Signature: Vania Blanton RN Date and Time: 05/04/22 According to plan, patient discharged home with spouse. Discharge instructions printed and reviewed. Teaching provided on new medications, self-care, signs and symptoms to report, and follow-up appointments. Patient verbalized understanding and denies any questions at time of discharge. Patient instructed to call provider with any additional questions after discharge. Signature: Biju ARANGOship's master: Discharge Planning Assessment [id number] Lives Withdependent child(marizol); significant other(1) [facility]) Resource/Environmental Concernsnon(1) [facility]) Services Anticipated at Transitionnon(1) Discharge Documentation: Discharge/Transfer Date/[id number] 13:16 Discharged Accompanied Byspouse Discharge Modeambulatory Transportation Methodprivate car Code StatusCode Status order at time of discharge: Full Code [place] DNR Form Sent with Patient and/or Familyn/a Final Disposition.Home Electronic Signatures: Alejandra Blanton (CONCHITA) (Signed 04-May-2022 13:19) Authored: Discharge Planning, Assessment, Discharge Documentation Last Updated: 04-May-2022 13:19 by Alejandra Blanton (CONCHITA) References: 1. Data Referenced From Patient Profile - OB v3 02-May-2022 06:45 [facility] Order Reconciliationon 05-02 Order Reconciliation Page 1 Admission Reconciliation Document Reconciliation Type: Admission requested on behalf of Darnell Odell (Physician) done by Darnell Odell (DO) Admission - Reconciliation: 02-May-2022 07:06 by: Darnell Odell (DO) Home MedicationsEnteredLast Dose TakenReconciled with current Order Reconciliation Comment/ Additional Information CeleXA 20 mg oral tablet 1 tab(s) orally once a [id number] 2 AM Citalopram (CELEXA) TabletDOSE = 20 mg Oral DailyCeleXA 20 mg oral tablet continued as the inpatient order Citalopram (CELEXA) Additional Current Orders Acetaminophen Rectal Suppository (TYLENOL)DOSE = 650 mg Rectal Once, PRN Initial pain mgmt following deliveryClinician Notes: Administer in the OR. Carboprost IntraMuscular (HEMABATE)DOSE = 250 microgram(s) IntraMuscular Once, PRN post bleeding in non-asthmatic patientClinician Notes: Consult provider prior to administration. hydrALAZINE (APRESOLINE) Injectable DOSE = 5 mg IntraVenous Push Once, PRN Acute-onset, severe HTN w/out known, suspected CADClinician Notes: Consult provider prior to administration. Push over more than 2 minutes. Systolic greater than or equal to 160 OR Diastolic greater than or equal to 110. Contraindication: coronary artery disease (CAD); Caution in suspected CAD. Labetalol Injectable (TRANDATE)DOSE = 20 mg IntraVenous Push Once, PRN Acute-onset, sev HTN w/o active asthma/ eliel<60Clinician Notes: Consult provider prior to administration. Push over more than 2 minutes. Systolic greater than or equal to 160 OR Diastolic greater than or equal to 110. Contraindications: active asthma, heart disease, heart failure, maternal bradycardia < 60. Lactated Ringers Infusion IV Bag Volume = 1,000 mL Run at: 125 mL/hr IntraVenous Lactated Ringers IV Bolus DOSE = 500 mL Once, PRN resuscitationInfuse over 30 minute(s) Lactated Ringers IV Bolus DOSE = 500 mL Once, PRN If patient is given an EpiduralInfuse over 30 minute(s)Clinican Notes: Give 30 minutes prior to Epidural catheter placement Loperamide Capsule (IMODIUM)DOSE = 4 mg Oral Every 2 Hours, PRN If Carboprost given or loose stoolsClinician Notes: Max dose of 16mg / 24 hours Methylergonovine Injectable (METHERGINE)DOSE = 0.2 mg IntraMuscular Once, PRN PPH in pts w/o HTN or receiving ART for HIV mgmt.Clinician Notes: Consult provider prior to administration.Notes from Pharmacy: Reproductive Risk - Single Nitrile Glove miSOPROStol IntraVaginal Tablet (CYTOTEC)DOSE = 25 microgram(s) IntraVaginal Every 3 HoursStop After 6 DosesClinician Notes: Contraindication: prior delivery, myomectomy or transfundal surgery.Notes from Pharmacy: Reproductive Risk - Single Nitrile Glove miSOPROStol Rectal Tablet (Cytotec)DOSE = 800 microgram(s) Rectal Once, PRN post bleedingClinician Notes: Consult provider prior to administration.Notes from Pharmacy: Reproductive Risk - Single Nitrile Glove NIFEdipine (PROCARDIA) Immediate Release CapsuleDOSE = 10 mg Oral Once, PRN Acute-onset, severe HTN w/out IV access/ pref oralClinician Notes: Consult provider prior to administration. Systolic greater than or equal to 160 OR Diastolic greater than or equal to 110. Capsules administered orally and swallowed whole; Do not puncture or crush; Do not administer sublingually. Ondansetron Injectable (ZOFRAN)DOSE = 4 mg IntraVenous Push Once, PRN Nausea & Vomiting Oxytocin 30 units/ NaCL 0.9% 500 mL Infusion with Bolus from Bag IntraVenous (PITOCIN)INITIAL Bolus = 600 milliunits/min infused over 30 minutesDose Rate: 60 milliunits/minAdmin Rate = 60 mL/hrStop After 1 DosesClinician Notes: 600 milliunits/min x 30 mins., then 60 milliunits/min for the remainder of the bag. Begin infusion at delivery of infant(s).Notes from Pharmacy: DOSE Rate = 60 milliunits/min = 60 mL/hr.Reproductive Risk - Single Nitrile Glove Oxytocin 30 units/ NaCL 0.9% 500 mL Infusion with Bolus from Bag IntraVenous (PITOCIN)INITIAL Bolus = 600 milliunits/min infused over 30 minutesDose Rate: 60 milliunits/minAdmin Rate = 60 mL/hrStop After 1 DosesClinician Notes: Conditional order. 600 milliunits/min x 30 mins., then 60 milliunits/min for the remainder of the bag. Consult Provider prior to administration.Notes from Pharmacy: DOSE Rate = 60 milliunits/min = 60 mL/hr. Oxytocin Injectable (PITOCIN)DOSE = 10 unit(s) IntraMuscular OnceClinician Notes: Conditional order. Consult Provider prior to administration. Oxytocin Injectable (PITOCIN)DOSE = 10 unit(s) IntraMuscular Once, PRN Management-3rd Stage of labor if not given IVPBClinician Notes: Consult Provider prior to administration.Notes from Pharmacy: Reproductive Risk - Single Nitrile Glove Sodium Chloride 0.9% Injectable Flush via Peripheral LineVolume = 10 mL IntraVenous Flush Every 12 Hours and as Needed Terbutaline Injectable (BRETHINE)DOSE = 0.25 mg SubCutaneous Once, PRN for Onset of Uterine Tetany De (more content not included)... [facility] Patient Profile - OB v3on Patient Profile - OB v3 Profile: Initial Info: How to be AddressedJasmine (1) Spoken Language PreferredEnglish (1) Source of Informationpatient Reason for admission this visitexpected delivery Wants Family/Rep Notified of Admissionn/a; family present Notify PCPdo not notify PCP Informed of Patient Visiting Rightsyes [facility] Patient Belongingsremains with patient Home Meds have been Reviewed and Verified with Patient/Familyyes Medications Brought to Hospitalno Info: Gravida4 (1) Term Deliveries1 (1) Deliveries1 (1) Abortions1 (1) Living Children2 (1) Patient stated [id number] Calculation of EGA based on patient stated EDD39.2 Records availableyes Trimester Care Initiatedfirst Care Provideradair Current Risksnone, labor Previous live (any gestational age)yes Most Recent Live [id number] All Previous Delivery Type(s)vaginal delivery All Previous /Delivery Complicationspreeclampsi a, delivery, labor Planno Baby's Post Discharge Care Provider (Provider Name, Address and Phone Number) QUARANTINE INSPECTOR Feedingbreastmilk Benefits of Breast Milk DiscussionThe benefits of exclusive breast milk feeding and the risk of adding formula have been discussed with patient / mother. Discussion Date / [id number] 06:49 Previous Experienceyes General Health: Current Weight in kg91.7 kilogram(s) Current Weight in mzf736.1 pound(s) Weight Methodactual (measured) Scale Typestanding Pre Weight (lb)205 pound(s) Total Weight Gain (lb)-2 pound(s) Height in feet4 feet Height in tfunxn24.98 inch(es) Height in cm149.8 centimeter(s) Height Methodstated BMI (kg/m2)40.864 square meter Patient or Family Member Reaction to Anesthesiano previous reaction Blood Avoidance/Restrictionsno ne Previous Transfusion Reactionno Rsp Based Care: How would you like to participate in your daren/a What is the number one concern for you during this hospitalizationn/a What is the most important thing we can do to support you during this hospitalizationn/a Is there anything we need to know to best care for johana/a Substance: Smoking Statusformer smoker Health Mgmt: Symptoms/Conditions Managed at [place] Barriers to Managing Healthnone Relationship/Environ: Primary Source of Support/Comfortsignifica nt other Lives Withdependent child(marizol); significant other Resource/Environmental Concernsnone [facility] Anticipated at Transitionnone Additional Information: Information Review: Allergies and Significant Events have been Reviewed and Verified with Patient/Familyyes Allergy, Intolerance, Adverse Event: Allergies: Singulair: Drug, Other, Active Latuda: Drug, Other, Active Latex: Latex, Swelling/Edema, Rash, Active Electronic Signatures: Alejandra Blanton (CONCHITA) (Signed 02-May-2022 06:51) Authored: Initial Info, Info, General Health, Rsp Based Care, Substance, Health Mgmt, Relationship/Environ, Additional Information Last Updated: 02-May-2022 06:51 by Alejandra Blanton (CONCHITA) References: 1. Data Referenced From Triage Note - OB v4 28-Apr-2022 21:09 [facility] REQUEST-LEUKOREDUCED RED ANA LILIA LSon 05-02-2022 REQUEST-LEUKOREDUCED RED CELLS ORDER RECD [facility] Comment on above: Performed By: #### C BC #### [place] [address] Risk Screen - OB Triageon Risk Screen - OB Triage This report has been cancelled. Normal [facility] SYPHILIS SCREENING WITH REFL EXon 05-02-2022 SYPHILIS TOTAL AB Non-Reactive Normal NONREACTIVE [facility] Comment on above: Result Comment: No s ignificant level of Treponema pallidum antibody detected. Repeat testing in 2 to 4 weeks may be considered if early infection or incubating syphilis infection is suspected. Performed By: #### C MP #### [place] [id number] Lab Specimen Source [facility] Comment on above: Performed By: #### C MP #### [address] [address] TYPE + SCREENon 05-02-2022 ABO TYPE A Normal [facility] Comment on above: Performed By: #### T +S #### [address] [address] RH TYPE Positive Normal [facility] Comment on above: Performed By: #### T +S #### [address] [address] CORONAVIRUS 2019, SCREEN ASY MPTOMATICon 04-29-2022 SARS-CoV-2 (COVID-19) RNA BRANDI+probe Ql (Unsp spec) Not detected Normal Not Detected [place] [facility] [facility] Comment on above: Result Comment: . This assay is designed to detect the N, ORF1ab and/or S genes of SARS-CoV-2 via nucleic acid amplification. A Negative (NOT DETECTED) result does not preclude 2019-nCoV infection since the adequacy of sample collection and/or low viral burden may result in presence of viral nucleic acids below the clinical sensitivity of this test method. Negative (NOT DETECTED) result should not be used as the sole basis for treatment or other patient management decisions. Rather negative results should be combined with clinical observations, patient history, and epidemiological information to make patient management decisions. Fact sheet for providers: https://www.fda.gov/media/906293/download Fact sheet for patients: https://www.fda.gov/media/196281/download This test has received FDA Emergency Use Authorization (EUA) and has been verified by [facility] ([facility]). This test is only authorized for the duration of time that circumstances exist to justify the authorization of the emergency use of in vitro diagnostic tests for the detection of SARS-CoV-2 virus and/or diagnosis of COVID-19 infection under section 564(b)(1) of the Act, 21 U.S.C. 360bbb-3(b)(1), unless the authorization is terminated or revoked sooner. [facility] is certified under CLIA-88 as qualified to perform high complexity testing. Testing is performed in the [facility] laboratories located at [address] [place] [address]. Performed By: #### C MP #### [id number] [place] [address] Lab Specimen Source Nasal, Nasopharyngeal Normal [facility] Comment on above: Performed By: #### C MP #### [id number] [place] [address] Coronavirus 2019 RNA by PCR, Screening Asymptomticon 04-29-2022 Coronavirus 2019 RNA by PCR, Screening Asymptomtic Not detected Normal See Below [facility] [address] Work Phone: Comment on above: SOURCE: Nasal, Nasop haryngealReference Range: Not Detected.This assay is designed to detect the N, ORF1ab and/or S genes of SARS-CoV-2 via nucleic acid amplification. A Negative (NOT DETECTED) result does not preclude 2019-nCoV infection since the adequacy of sample collection and/or low viral burden may result in presence of viral nucleic acids below the clinical sensitivity of this test method. Negative (NOT DETECTED) result should not be used as the sole basis for treatment or other patient management decisions. Rather negative results should be combined with clinical observations, patient history, and epidemiological information to make patient management decisions.Fact sheet for providers: https://www.fda.gov/media/168632/downloadFact sheet for patients: https://www.fda.gov/media/845894/downloadThis test has received FDA Emergency Use Authorization (EUA) and has been verified by [facility] ([facility]). This test is only authorized for the duration of time that circumstances exist to justify the authorization of the emergency use of in vitro diagnostic tests for the detection of SARS-CoV-2 virus and/or diagnosis of COVID-19 infection under section 564(b)(1) of the Act, 21 U.S.C. 360bbb-3(b)(1), unless the authorization is terminated or revoked sooner. [facility] is certified under CLIA-88 as qualified to perform high complexity testing. Testing is performed in the [facility] laboratories located at [address] [place] [address]. Covid 19 Resultson 2 SARS-CoV-2 (COVID-19) RNA BRANDI+probe Ql (Unsp spec) NEGATIVE COVID-19 Test Coronaviruses are common world-wide and are the cause of many common colds. SARS-COV2 is a new coronavirus that began circulating worldwide in 2019 so we are calling it COVID-19. It has been estimated that four out of five patients with COVID-19 will recover at home without the need for medical attention. Symptoms of COVID-19 may include cough, fever, shortness of breath, loss of taste or smell and other flu-like symptoms including chills, sore muscles, sore throat, and headache. Severe illness is more common in older people and people with other health problems such as high blood pressure, obesity, and immune system problems. If the test is positive, you have COVID-19. You will be contacted by the ordering physicians office and instructed to remain on home isolation, in accordance with CDC guidelines. You may also be contacted by the [facility] to see if any of your close contacts may have been exposed to the virus and need to quarantine. If the test is negative, you likely do not have COVID-19 at this time, but you still may have a different illness that can spread to other people (like Influenza, or the Flu) and could still be at risk for getting COVID-19. We recommend that you stay away from other people to limit the spread of illness until your symptoms are improving and you are fever-free for 24 hours without the use of fever lowering medications such as acetaminophen or ibuprofen. No test is 100% accurate so if you are still concerned you may have COVID-19, talk to your doctor about the need to continue to stay away from others. Medicines Unless your provider told you not to use the following: Acetaminophen (Tylenol and others) is generally safe. Anti-inflammatory medications, such as Ibuprofen (Advil or Motrin) or Naproxen (Aleve) can also be used. Rqcm-edw-lhmvdwr cough and cold medicines can be used according to the instructions on the package. Some ngja-xaa-zlpyvfe medicines also contain acetaminophen. Make sure you are not taking more than your recommended dose. For those not hospitalized, there is no specific treatment available for this illness. Antibiotics do not treat Coronaviruses. Follow-Up Follow up with your doctor by scheduling a virtual visit or consider follow-up at one of our urgent care fever clinics. If you are having difficulty breathing, or are very weak and having difficulty standing, this is a medical emergency. Call 911 or have someone take you to the nearest emergency room immediately. If possible, wear a facemask. Additional guidance from the CDC for patients who tested POSITIVE for COVID-19 How to isolate: Isolate yourself in a specific room at home and limit your contact with others. Use a separate bathroom from other members of the household, when possible. Leave home only to get essential medical care. Do not go to work, school or public areas. Avoid using public transportation, ride-sharing, or taxis. Restrict contact with pets and other animals. If you must care for your pet or be around animals while you are sick, wash your hands before and after your interaction and wear a facemask. Make sure that shared spaces in the home have good airflow, such as by an air conditioner or an opened window, weather permitting. Personal Hygiene Procedures: Wear a face mask when in the same room as other people or pets. If a face mask interferes with your breathing, others should wear a mask when sharing space with you. Frequent hand-washing: wash your hands with soap and water for at least 20 seconds. If soap and water are not available, use alcohol-based hand branch office manager. Avoid touching your eyes, nose, and mouth with unwashed hands. Household Hygiene Procedures: Avoid sharing personal household items such as dishes, glassware, cups, eating utensils, towels or bedding with other people or pets in your home. After use, these items should be washed with soap and hot water. Disinfect all high-touch surfaces every day with antibacterial cleaning solutions such as Lysol wipes, bleach, cleansers, etc. High-touch surfaces include tabletops, doorknobs, bathroom fixtures, toilets, phones, keyboards, tablets and bedside tables. Immediately clean any surfaces that may have blood, poop or body fluids on them, using antibacterial cleaning solutions such as Lysol wipes, bleach, cleansers, etc. If clothing or bedding come into contact with blood, poop or body fluids, they should be washed immediately. Follow the directions on the laundry detergent and clothing labels but hot water is recommended when possible. Stopping home isolation precautions: If possible, consult your doctor before stopping home isolation precautions. According to the CDC, you can discontinue home isolation precautions when you have met both of these criteria: Your fever and respiratory symptoms have been gone for 24 stanley (more content not included)... Normal [facility] Risk Screen - OB Triageon Risk Screen - OB Triage Allergies: Allergies: Allergies: Singulair: Other Latuda: Other Latex: Swelling/Edema, Rash Patient Verification: Patient Verification: New W ID Band Applied in my Departmentyes Patient Identity Verified Bypatient ID Band FULL Name, include Middle, spelling matches patient's ID used for verificationyes ID Band Matches Patient ID used for Verficationyes ID Band MRN Matches EMR MRNyes Travel History: Travel History: COVID-19 Screening Completedno exposure or symptoms Travel or Exposure Past 30 DaysNO travel to International locations in the past 30 days Advance Directives: Advance Directive: Advance Directive/DNRno Advance Directive Information Givenpatient/family declined Falls Risk: Persaud Fall Screen: History of falling (immediate or previous)yes (25) Secondary Diagnosisyes (15) Intravenous Therapy/ Heparin/Saline Lockno (0) Gait/Transferringnormal/ bedrest/wheelchair (0) Ambulatory Aidsnone/bedrest/nurse assist (0) Mental Statusoriented to own ability (0) Score: Low risk (<25). Moderate risk (25-44). High risk (>44).40 Persaud InterventionsMODERATE INTERVENTIONS: *Low Interventions Plus: * falls risk band/sticker applied to patient, *yellow non-skid footwear, *instruct to call for assistance before getting out of bed, *bed/chair/bedside commode/toilet alarms, *sensory devices/ambulatory aides available and in reach, *medications reviewed for potential side effects and care planning. Learning Assessment (Patient): Learning Assessment (Patient): Patient is Able to be Assessed for Learningyes Factors Influencing Readiness to Learnpain Factors that Impact Ability to Learnnone Devices/Methods Used to Communicateglasses Learning Preferencesverbal instruction Cultural Considerationsnone Developmental Considerationsnone Voodoo Considerationsnone Learning Assessment (Other Learner): Other learner availableno Depression/Suicide: Depression Screen: During the past month, have you often been bothered by feeling down, depressed or hopelessno During the past month, have you often had little interest or pleasure in doing thingsno Have you had any thoughts of harming anyone elseno [place] Suicide: Risk Screen Not Applicable/Able to Answerable to be screened In the Past Month: Have you wished you were or could go to sleep and not wake upno In the Past Month: Have you had any actual thoughts of killing yourselfno Lifetime: Have you ever done, started to do, or prepared to do anything to end your lifeno [place] Suicide Risknegative Family Violence: Abuse Screen: Are you or have you been threatened or abused physically, emotionally, or sexually by anyoneno Do you feel UNSAFE going back to the place where you are livingno Clinical assessment: Are there any apparent signs of injuries/behaviors that could be related to abuse/neglectno Electronic Signatures: Sherri Villarreal (RN) (Signed 28-Apr-2022 21:09) Authored: Allergies, Patient Verification, Travel History, Advance Directives, Persaud Fall Screen, Learning Assessment (Patient), Learning Assessment (Other Learner), Depression/Suicide, Family Violence Last Updated: 28-Apr-2022 21:09 by Sherri Villarreal (CONCHITA) Normal [facility] CBCon 04-24-2022 Erythrocyte distribution width (RBC) [Ratio] 14.8 % High 11.5 - 14.5 [facility] Comment on above: Performed By: #### C BC #### [address] [address] Hematocrit (Bld) [Volume fraction] 33.8 % Low 36.0 - 46.0 [facility] Comment on above: Performed By: #### C BC #### [address] [address] Hemoglobin (Bld) [Mass/Vol] 11.4 g/dL Low 12.0 - 16.0 [facility] Comment on above: Performed By: #### C BC #### [address] [address] MCHC (RBC) [Mass/Vol] 33.9 g/dL Normal 32.0 - 36.0 [facility] Comment on above: Performed By: #### C BC #### [address] [address] MCV (RBC) [Entitic vol] 88 fL Normal 80 - 100 [facility] Comment on above: Performed By: #### C BC #### [id number] Platelets (Bld) [#/Vol] 227 10*3/uL Normal 150 - 450 [facility] Comment on above: Performed By: #### C BC #### [id number] RBC 3.86 x10E12/L Low 4.00 - 5.20 [facility] Comment on above: Performed By: #### C BC #### [id number] WBC (Bld) [#/Vol] 10.1 10*3/uL Normal 4.4 - 11.3 [facility] Comment on above: Performed By: #### C BC #### [place] [address] COMPREHENSIVE PANELon 2021 Albumin [Mass/Vol] 3.6 g/dL Normal 3.4 - 5.0 [facility] Comment on above: Performed By: #### C BC #### [id number] ALP [Catalytic activity/Vol] 114 U/L High 33 - 110 [facility] Comment on above: Performed By: #### C BC #### [id number] ALT [Catalytic activity/Vol] 6 U/L Low 7 - 45 [facility] Comment on above: Result Comment: Kimberly ents treated with Sulfasalazine may generate falsely decreased results for ALT. Performed By: #### C BC #### [id number] Anion gap [Moles/Vol] 14 mmol/L Normal 10 - 20 [facility] Comment on above: Performed By: #### C BC #### [id number] AST [Catalytic activity/Vol] 8 U/L Low 9 - 39 [facility] Comment on above: Performed By: #### C BC #### [address] [address] Bilirubin [Mass/Vol] 0.4 mg/dL Normal 0.0 - 1.2 [facility] Comment on above: Performed By: #### C BC #### [address] [address] Calcium [Mass/Vol] 8.7 mg/dL Normal 8.6 - 10.3 [facility] Comment on above: Performed By: #### C BC #### [address] [address] Chloride [Moles/Vol] 108 mmol/L High 98 - 107 [facility] Comment on above: Performed By: #### C BC #### [address] [address] Creatinine [Mass/Vol] 0.62 mg/dL Normal 0.50 - 1.05 [facility] Comment on above: Performed By: #### C BC #### [address] [address] eGFR FEMALE >90 Normal >90 [facility] Comment on above: Result Comment: CALC ULATIONS OF ESTIMATED GFR ARE PERFORMED USING THE 2020 CKD-EPI STUDY REFIT EQUATION WITHOUT THE RACE VARIABLE FOR THE IDMS-TRACEABLE CREATININE METHODS. https://jasn.asnjournals.org/content//ASN.0465367 988 Performed By: #### C BC #### [address] [address] Glucose [Mass/Vol] 106 mg/dL High 74 - 99 [facility] Comment on above: Performed By: #### C BC #### [address] [address] HCO3 (Bld) [Moles/Vol] 20 mmol/L Low 21 - 32 [facility] Comment on above: Performed By: #### C BC #### [address] [address] Potassium [Moles/Vol] 3.4 mmol/L Low 3.5 - 5.3 [facility] Comment on above: Performed By: #### C BC #### [address] [address] Protein [Mass/Vol] 6.2 g/dL Low 6.4 - 8.2 [facility] Comment on above: Performed By: #### C BC #### [address] [address] Sodium [Moles/Vol] 139 mmol/L Normal 136 - 145 [facility] Comment on above: Performed By: #### C BC #### [address] [address] Urea nitrogen [Mass/Vol] 5 mg/dL Low 6 - 23 [facility] Comment on above: Performed By: #### C BC #### [address] [address] Laboratory - Chemistry and C hemistry - challengeon 04-24-2022 Albumin BCP dye [Mass/Vol] 3.6 g/dL 3.4 - 5.0 [facility] [address] [employer] Work Phone: [phone] ALP [Catalytic activity/Vol] 114 U/L above high threshold 33 - 110 [facility] [address] [employer] Work Phone: [phone] ALT With P-5'-P [Catalytic activity/Vol] 6 U/L below low threshold 7 - 45 [facility] [address] [employer] Work Phone: [phone] Comment on above: Patients treated wit h Sulfasalazine may generate falsely decreased results for ALT. Anion gap [Moles/Vol] 14 mmol/L 10 - 20 [facility] [address] [employer] Work Phone: [phone] AST With P-5'-P [Catalytic activity/Vol] 8 U/L below low threshold 9 - 39 [facility] [address] [employer] Work Phone: [phone] Bilirubin [Mass/Vol] 0.4 mg/dL 0.0 - 1.2 [facility] [address] Work Phone: [phone] Calcium [Mass/Vol] 8.7 mg/dL 8.6 - 10.3 [facility] [address] [employer] Work Phone: [phone] Chloride [Moles/Vol] 108 mmol/L above high threshold 98 - 107 [facility] [address] [employer] Work Phone: [phone] CO2 [Moles/Vol] 20 mmol/L below low threshold 21 - 32 [facility] [address] [employer] Work Phone: [phone] Creatinine [Mass/Vol] 0.62 mg/dL See Below [facility] [address] [employer] Work Phone: [phone] Comment on above: Reference Range: 0.5 0 - 1.05 Glucose [Mass/Vol] 106 mg/dL above high threshold 74 - 99 [facility] [address] [employer] Work Phone: [phone] Potassium [Moles/Vol] 3.4 mmol/L below low threshold 3.5 - 5.3 [facility] Work Phone: [phone] Protein [Mass/Vol] 6.2 g/dL below low threshold 6.4 - 8.2 [facility] Work Phone: [phone] Sodium [Moles/Vol] 139 mmol/L 136 - 145 [facility] [address] [employer] Work Phone: [phone] Urea nitrogen [Mass/Vol] 5 mg/dL below low threshold 6 - 23 [facility] Work Phone: [phone] Laboratory - Hematology and Cell countson 04-24-2022 Erythrocyte distribution width (RBC) [Ratio] 14.8 % above high threshold See Below [facility] [address] [employer] Work Phone: [phone] Comment on above: Reference Range: 11. 5 - 14.5 Hematocrit (Bld) [Volume fraction] 33.8 % below low threshold See Below [facility] [address] [employer] Work Phone: [phone] Comment on above: Reference Range: 36. 0 - 46.0 Hemoglobin (Bld) [Mass/Vol] 11.4 g/dL below low threshold See Below [facility] [address] [employer] Work Phone: [phone] Comment on above: Reference Range: 12. 0 - 16.0 MCHC (RBC) [Mass/Vol] 33.9 g/dL See Below [facility] [address] Work Phone: [phone] Comment on above: Reference Range: 32. 0 - 36.0 MCV (RBC) [Entitic vol] 88 fL 80 - 100 [facility] [address] [employer] Work Phone: [phone] Platelets (Bld) [#/Vol] 227 10*3/uL 150 - 450 [facility] [address] [employer] Work Phone: [phone] RBC (Bld) [#/Vol] 3.86 {x10E12/L} below low threshold See Below [facility] [address] [employer] Work Phone: [phone] Comment on above: Reference Range: 4.0 0 - 5.20 WBC (Bld) [#/Vol] 10.1 10*3/uL 4.4 - 11.3 [facility] [address] [employer] Work Phone: [phone] Panel Informationon 04-24 >90 >90 [facility] [address] [employer] Work Phone: [phone] Comment on above: CALCULATIONS OF ZOE MATED GFR ARE PERFORMED USING THE 2020 CKD-EPI STUDY REFIT EQUATION WITHOUT THE RACE VARIABLE FOR THE IDMS-TRACEABLE CREATININE METHODS.https://jasn.asnjournals.org/content/early/ASN .8341081627 Risk Screen - OB Triageon Risk Screen - OB Triage Allergies: Allergies: Allergies: Singulair: Other Latuda: Other Latex: Swelling/Edema, Rash Patient Verification: Patient Verification: New W ID Band Applied in my Departmentyes Patient Identity Verified Bypatient ID Band FULL Name, include Middle, spelling matches patient's ID used for verificationyes ID Band Matches Patient ID used for Verficationyes ID Band MRN Matches EMR MRNyes Travel History: Travel History: COVID-19 Screening Completedno exposure or symptoms Travel or Exposure Past 30 DaysNO travel to International locations in the past 30 days Advance Directives: Advance Directive: Advance Directive/DNRno Advance Directive Information Givenpatient/family declined Falls Risk: Persaud Fall Screen: History of falling (immediate or previous)yes (25) Secondary Diagnosisno (0) Intravenous Therapy/ Heparin/Saline Lockno (0) Gait/Transferringnormal/ bedrest/wheelchair (0) Ambulatory Aidsnone/bedrest/nurse assist (0) Mental Statusoriented to own ability (0) Score: Low risk (<25). Moderate risk (25-44). High risk (>44).25 Persaud InterventionsMODERATE INTERVENTIONS: *Low Interventions Plus: * falls risk band/sticker applied to patient, *yellow non-skid footwear, *instruct to call for assistance before getting out of bed, *bed/chair/bedside commode/toilet alarms, *sensory devices/ambulatory aides available and in reach, *medications reviewed for potential side effects and care planning., moderate interventions except: gait belts with ambulation, moderate interventions except: sensory devices/ambulatory aides available and in reach, moderate interventions except: bed/chair/bedside commode/toilet alarms Learning Assessment (Patient): Learning Assessment (Patient): Patient is Able to be Assessed for Learningyes Factors Influencing Readiness to Learnanxiety Factors that Impact Ability to Learnnone Devices/Methods Used to Communicateglasses Learning Preferencesverbal instruction; written material Cultural Considerationsnone Developmental Considerationsnone Voodoo Considerationsnone Learning Assessment (Other Learner): Other learner availableno Depression/Suicide: Depression Screen: During the past month, have you often been bothered by feeling down, depressed or hopelessno During the past month, have you often had little interest or pleasure in doing thingsno Have you had any thoughts of harming anyone elseno [place] Suicide: Risk Screen Not Applicable/Able to Answerable to be screened In the Past Month: Have you wished you were or could go to sleep and not wake upno In the Past Month: Have you had any actual thoughts of killing yourselfno Lifetime: Have you ever done, started to do, or prepared to do anything to end your lifeno [place] Suicide Risknegative Family Violence: Abuse Screen: Are you or have you been threatened or abused physically, emotionally, or sexually by anyoneno Do you feel UNSAFE going back to the place where you are livingno Clinical assessment: Are there any apparent signs of injuries/behaviors that could be related to abuse/neglectno Electronic Signatures: Sheree Fraga (RN) (Signed 24-Apr-2022 14:37) Authored: Allergies, Patient Verification, Travel History, Advance Directives, Persaud Fall Screen, Learning Assessment (Patient), Learning Assessment (Other Learner), Depression/Suicide, Family Violence Last Updated: 24-Apr-2022 14:37 by Sheree Fraga (RN) Normal [facility] TOTAL PROTEIN, URINE SPOTon 04-24-2022 CREATININE,URINE 33.0 mg/dL Normal 20.0 - 320.0 [facility] Comment on above: Performed By: #### C BC #### [address] [address] T. PROTEIN/CREAT RATIO 0.30 mg/mg Creat High 0.00 - 0.17 [facility] Comment on above: Performed By: #### C BC #### [address] [address] TOTAL PROT,URINE SPOT 10 mg/dL Normal 5 - 24 [facility] Comment on above: Performed By: #### C BC #### [address] [address] Total Protein, Urine Spoton 04-24-2022 Creatinine (U) [Mass/Vol] 33.0 mg/dL See Below [facility] [address] [employer] Work Phone: [phone] Comment on above: Reference Range: 20. 0 - 320.0 Protein (U) [Mass/Vol] 10 mg/dL 5 - 24 [facility] [address] [employer] Work Phone: [phone] Protein/Creatinine (U) [Ratio] 0.30 {mg/mg_Creat} above high threshold See Below [facility] [address] [employer] Work Phone: [phone] Comment on above: Reference Range: 0.0 0 - 0.17 Triage Note - OB v4on 2021 Triage Note - OB v4 Triage: General Info: Time of Arrival on [id number] 13:30 [facility] Ac[facility] Level4 Time Acuity Level [id number]-Nwa-0994 13:45 Chief ComplaintHigh blood pressure at home How to be AddressedJasmine (1) Spoken Language PreferredEnglish (1) Source of Informationpatient; health record Weight in kg90 kilogram(s) Weight in pju034.4 pound(s) Weight Methodactual (measured) Scale Typestanding Height in feet4 feet Height in qyhsjb87.98 inch(es) Height in cm149.8 centimeter(s) Height Methodstated BMI (kg/m2)40.106 square meter Blood Avoidance/Restrictionsno ne(1) Previous Transfusion Reactionnot applicable(1) Patient Belongingsremains with patient Patient Belongings Remaining with Patientpurse/wallet; cell phone/electronics; medical/assistive equipment; clothing Home Meds have been Reviewed and Verified with Patient/Familyyes Info: Gravida4 Term Deliveries1 Deliveries1 Abortions1 Living Children2 Patient stated [id number] Calculation of EGA based on patient stated EDD38.1 Records availableyes Trimester Care Initiatedfirst Care ProviderDr. Duy Current Risksanemia, previous , STD/STI, Hypokalemia Hypomagnesia Trich in 2017 History preeclampsia with last Substance: Smoking Statuslight user (uses <10 cig/day, OR <0.5 ppd, OR 1 can/pouch loose leaf tobacco per week, OR <0.5 vape pods per day) Tobacco Cessation Education (provide if tobacco use within the last 12 mos)yes Alcohol Usedenies Drug Usedenies Drug 2 Usedenies Disposition/Disch: Dispositiondischarged from facility, home with own care Patient Meets Criteria for Home Blood Pressure Monitorno Admission/Observation/Di scharge/Transfer Date/[id number]-3294 15:40 Discharge Modeambulatory Transportation Methodprivate car Travel History: Travel or ExposureNO travel to International locations in the past 30 days Additional Information: Information Review: Allergies have been Reviewed and Verified with Patient/Familyyes Allergy, Intolerance, Adverse Event: Allergies: Singulair: Drug, Other, Active Latuda: Drug, Other, Active Latex: Latex, Swelling/Edema, Rash, Active Electronic Signatures: Maryjane Shepard (RN) (Signed 24-Apr-2022 16:23) Authored: Disposition/Disch Sheree Fraga (RN) (Signed 24-Apr-2022 14:35) Authored: General Info, Info, Substance, Travel History, Additional Information Last Updated: 24-Apr-2022 16:23 by Maryjane Shepard (CONCHITA) References: 1. Data Referenced From Triage Note - OB v4 22-Apr-2022 14:58 Normal [facility] CBCon 04-22-2022 Erythrocyte distribution width (RBC) [Ratio] 14.4 % Normal 11.5 - 14.5 [facility] Comment on above: Performed By: #### C BC #### [place] [id number] Hematocrit (Bld) [Volume fraction] 32.3 % Low 36.0 - 46.0 [facility] Comment on above: Performed By: #### C BC #### [place] [id number] Hemoglobin (Bld) [Mass/Vol] 10.8 g/dL Low 12.0 - 16.0 [facility] Comment on above: Performed By: #### C BC #### [address] [address] MCHC (RBC) [Mass/Vol] 33.5 g/dL Normal 32.0 - 36.0 [facility] Comment on above: Performed By: #### C BC #### [address] [address] MCV (RBC) [Entitic vol] 87 fL Normal 80 - 100 [facility] Comment on above: Performed By: #### C BC #### [address] [address] Platelets (Bld) [#/Vol] 221 10*3/uL Normal 150 - 450 [facility] Comment on above: Performed By: #### C BC #### [address] [address] RBC 3.70 x10E12/L Low 4.00 - 5.20 [facility] Comment on above: Performed By: #### C BC #### [address] [address] WBC (Bld) [#/Vol] 10.5 10*3/uL Normal 4.4 - 11.3 [facility] Comment on above: Performed By: #### C BC #### [address] [address] COMPREHENSIVE PANELon 2021 Albumin [Mass/Vol] 3.4 g/dL Normal 3.4 - 5.0 [facility] Comment on above: Performed By: #### C BC #### [address] [address] ALP [Catalytic activity/Vol] 111 U/L High 33 - 110 [facility] Comment on above: Performed By: #### C BC #### [address] [address] ALT [Catalytic activity/Vol] 6 U/L Low 7 - 45 [facility] Comment on above: Result Comment: Kimberly ents treated with Sulfasalazine may generate falsely decreased results for ALT. Performed By: #### C BC #### [address] [address] Anion gap [Moles/Vol] 13 mmol/L Normal 10 - 20 [facility] Comment on above: Performed By: #### C BC #### [address] [address] AST [Catalytic activity/Vol] 9 U/L Normal 9 - 39 [facility] Comment on above: Performed By: #### C BC #### [address] [address] Bilirubin [Mass/Vol] 0.4 mg/dL Normal 0.0 - 1.2 [facility] Comment on above: Performed By: #### C BC #### [address] [address] Calcium [Mass/Vol] 8.7 mg/dL Normal 8.6 - 10.3 [facility] Comment on above: Performed By: #### C BC #### [address] [place] [address] Chloride [Moles/Vol] 108 mmol/L High 98 - 107 [facility] Comment on above: Performed By: #### C BC #### [address] [address] Creatinine [Mass/Vol] 0.67 mg/dL Normal 0.50 - 1.05 [facility] Comment on above: Performed By: #### C BC #### [address] [address] eGFR FEMALE >90 Normal >90 [facility] Comment on above: Result Comment: CALC ULATIONS OF ESTIMATED GFR ARE PERFORMED USING THE 2020 CKD-EPI STUDY REFIT EQUATION WITHOUT THE RACE VARIABLE FOR THE IDMS-TRACEABLE CREATININE METHODS. https://jasn.asnjournals.org/content/early//ASN.4436003 988 Performed By: #### C BC #### [address] [address] Glucose [Mass/Vol] 110 mg/dL High 74 - 99 [facility] Comment on above: Performed By: #### C BC #### [address] [address] HCO3 (Bld) [Moles/Vol] 20 mmol/L Low 21 - 32 [facility] Comment on above: Performed By: #### C BC #### [address] [address] Potassium [Moles/Vol] 3.4 mmol/L Low 3.5 - 5.3 [facility] Comment on above: Performed By: #### C BC #### [address] [address] Protein [Mass/Vol] 5.8 g/dL Low 6.4 - 8.2 [facility] Comment on above: Performed By: #### C BC #### [address] [address] Sodium [Moles/Vol] 138 mmol/L Normal 136 - 145 [facility] Comment on above: Performed By: #### C BC #### [address] [place] [address] Urea nitrogen [Mass/Vol] 4 mg/dL Low 6 - 23 [facility] Comment on above: Performed By: #### C #### [address] [address] Discharge [id number] 022 Discharge Profile2 Discharge Orders: Anticipated Discharge Date: Anticipated Discharge [id number] Anticipated Discharge Time16:15 DNAR: Code Status at Discharge: Full Code Activity: activity as tolerated. May shower. May return to school/work Instructions: May drive. Diet: Dietregular Provider FINAL REVIEW of Orders: Final Review: Final Review of Medication Reconciliation and Orders Completedby Physician Other Clinician Instructions: Other Instructions: Other Clinician InstructionsCall Provider If: Regular painful contractions every 5 min or less for one hour. Time your contractions from the beginning of one to the beginning of another. Pressure in your vagina or lower abdomen that may feel like the baby is pushing down. Gush of fluid or blood from the vagina (it is normal to have spotting after vaginal exam or intercourse). Continue to check BPs twice daily with BP cuff at home and report abnormal results to OB provider. Follow up with OB provider with next scheduled appointment Your baby is not moving as much as usual.. Electronic Signatures: Cecy Krishna (CLIN COOR) (Signed 22-Apr-2022 16:12) Authored: Discharge Orders, Provider FINAL REVIEW of Orders, Other Clinician Instructions, Gold Form - Equipment Validation Engineer Summary Last Updated: 22-Apr-2022 16:12 by Cecy Krishna (CLIN COOR) Normal [facility] Laboratory - Chemistry and C hemistry - challengeon 04-22-2022 Albumin BCP dye [Mass/Vol] 3.4 g/dL 3.4 - 5.0 [facility] [address] [employer] Work Phone: [phone] ALP [Catalytic activity/Vol] 111 U/L above high threshold 33 - 110 [facility] [address] Work Phone: [phone] ALT With P-5'-P [Catalytic activity/Vol] 6 U/L below low threshold 7 - 45 [facility] [address] [employer] Work Phone: [phone] Comment on above: Patients treated wit h Sulfasalazine may generate falsely decreased results for ALT. Anion gap [Moles/Vol] 13 mmol/L 10 - 20 [facility] Work Phone: [phone] AST With P-5'-P [Catalytic activity/Vol] 9 U/L 9 - 39 [facility] Work Phone: [phone] Bilirubin [Mass/Vol] 0.4 mg/dL 0.0 - 1.2 [facility] Work Phone: [phone] Calcium [Mass/Vol] 8.7 mg/dL 8.6 - 10.3 [facility] Work Phone: [phone] Chloride [Moles/Vol] 108 mmol/L above high threshold 98 - 107 [facility] Work Phone: [phone] CO2 [Moles/Vol] 20 mmol/L below low threshold 21 - 32 [facility] Work Phone: [phone] Creatinine [Mass/Vol] 0.67 mg/dL See Below [facility] Work Phone: [phone] Comment on above: Reference Range: 0.5 0 - 1.05 Glucose [Mass/Vol] 110 mg/dL above high threshold 74 - 99 [facility] Work Phone: [phone] Potassium [Moles/Vol] 3.4 mmol/L below low threshold 3.5 - 5.3 [facility] Work Phone: [phone] Protein [Mass/Vol] 5.8 g/dL below low threshold 6.4 - 8.2 [facility] Work Phone: [phone] Sodium [Moles/Vol] 138 mmol/L 136 - 145 [facility] Work Phone: [phone] Urea nitrogen [Mass/Vol] 4 mg/dL below low threshold 6 - 23 [facility] Work Phone: [phone] Laboratory - Hematology and Cell countson 04-22-2022 Erythrocyte distribution width (RBC) [Ratio] 14.4 % See Below [facility] [address] [employer] Work Phone: [phone] Comment on above: Reference Range: 11. 5 - 14.5 Hematocrit (Bld) [Volume fraction] 32.3 % below low threshold See Below [facility] [address] [employer] Work Phone: [phone] Comment on above: Reference Range: 36. 0 - 46.0 Hemoglobin (Bld) [Mass/Vol] 10.8 g/dL below low threshold See Below [facility] [address] [employer] Work Phone: [phone] Comment on above: Reference Range: 12. 0 - 16.0 MCHC (RBC) [Mass/Vol] 33.5 g/dL See Below [facility] [address] [employer] Work Phone: [phone] Comment on above: Reference Range: 32. 0 - 36.0 MCV (RBC) [Entitic vol] 87 fL 80 - 100 [facility] [address] [employer] Work Phone: [phone] Platelets (Bld) [#/Vol] 221 10*3/uL 150 - 450 [facility] [address] Work Phone: [phone] RBC (Bld) [#/Vol] 3.70 {x10E12/L} below low threshold See Below [facility] [address] [employer] Work Phone: [phone] Comment on above: Reference Range: 4.0 0 - 5.20 WBC (Bld) [#/Vol] 10.5 10*3/uL 4.4 - 11.3 [facility] [address] Work Phone: [phone] No Panel Informationon 04-22 >90 >90 [facility] [address] [employer] Work Phone: [phone] Comment on above: CALCULATIONS OF ZOE MATED GFR ARE PERFORMED USING THE 2020 CKD-EPI STUDY REFIT EQUATION WITHOUT THE RACE VARIABLE FOR THE IDMS-TRACEABLE CREATININE METHODS.https://jasn.asnjournals.org/content//ASN .5816583827 Risk Screen - OB Triageon Risk Screen - OB Triage Allergies: Allergies: Allergies: Singulair: Other Latuda: Other Latex: Swelling/Edema, Rash Patient Verification: Patient Verification: New W ID Band Applied in my Departmentyes Patient Identity Verified Bypatient ID Band FULL Name, include Middle, spelling matches patient's ID used for verificationyes ID Band Matches Patient ID used for Verficationyes ID Band MRN Matches EMR MRNyes Travel History: Travel History: COVID-19 Screening Completedno exposure or symptoms Travel or Exposure Past 30 DaysNO travel to International locations in the past 30 days Advance Directives: Advance Directive: Advance Directive/DNRno Advance Directive Information Givenpatient/family declined Falls Risk: Persaud Fall Screen: History of falling (immediate or previous)yes (25) Secondary Diagnosisno (0) Intravenous Therapy/ Heparin/Saline Lockno (0) Gait/Transferringnormal/ bedrest/wheelchair (0) Ambulatory Aidsnone/bedrest/nurse assist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 mmol/L Normal 10 - 20 [facility] Comment on above: Performed By: #### M G #### [address] [address] Calcium [Mass/Vol] 9.1 mg/dL Normal 8.6 - 10.3 [facility] [place] Comment on above: Performed By: #### M G #### [address] [address] Chloride [Moles/Vol] 107 mmol/L Normal 98 - 107 [facility] Comment on above: Performed By: #### M G #### [address] [address] Creatinine [Mass/Vol] 0.69 mg/dL Normal 0.50 - 1.05 [facility] Comment on above: Performed By: #### M G #### [address] [address] eGFR FEMALE >90 Normal >90 [facility] Comment on above: Result Comment: CALC ULATIONS OF ESTIMATED GFR ARE PERFORMED USING THE 2020 CKD-EPI STUDY REFIT EQUATION WITHOUT THE RACE VARIABLE FOR THE IDMS-TRACEABLE CREATININE METHODS. https://jasn.asnjournals.org/content/early/ASN.0450184 988 Performed By: #### M G #### [address] [address] Glucose [Mass/Vol] 95 mg/dL Normal 74 - 99 [facility] [place] Comment on above: Performed By: #### M G #### [address] [address] HCO3 (Bld) [Moles/Vol] 20 mmol/L Low 21 - 32 [facility] Comment on above: Performed By: #### M G #### [address] [place] [address] Potassium [Moles/Vol] 3.4 mmol/L Low 3.5 - 5.3 [facility] Comment on above: Performed By: #### M G #### [address] [address] Sodium [Moles/Vol] 137 mmol/L Normal 136 - 145 [facility] [place] Comment on above: Performed By: #### M G #### [address] [address] Urea nitrogen [Mass/Vol] 6 mg/dL Normal 6 - 23 [facility] Comment on above: Performed By: #### M G #### [address] [address] GROUP B STREP SCREENon 04-12 GROUP B STREP SCREEN PATIENT: MIO MCCARTNEY LOCATION: [address]#: [id number] : 89 AGE: SEX: F ORDERED BY: DARNELL ODELL SOURCE: VAGINAL COLLECTED: 04/12/22 13:53 ANTIBIOTICS AT LU.: RECEIVED : 04/13/22 04:54 SITE: R E S U L T S GROUP B STREP SCREEN FINAL 04/15/22 12:05 NEGATIVE FOR GROUP B BETA STREP. Normal [facility] Comment on above: Performed By: #### M G #### [address] [address] Laboratory - Chemistry and C hemistry - challengeon 04-12-2022 Anion gap [Moles/Vol] 13 mmol/L 10 - 20 [facility] [address] Work Phone: [phone] Calcium [Mass/Vol] 9.1 mg/dL 8.6 - 10.3 [facility] [address] Work Phone: [phone] Chloride [Moles/Vol] 107 mmol/L 98 - 107 [facility] [address] Work Phone: [phone] CO2 [Moles/Vol] 20 mmol/L below low threshold 21 - 32 [facility] [address] Work Phone: [phone] Creatinine [Mass/Vol] 0.69 mg/dL See Below [facility] [address] [employer] Work Phone: [phone] Comment on above: Reference Range: 0.5 0 - 1.05 Glucose [Mass/Vol] 95 mg/dL 74 - 99 [facility] [address] [employer] Work Phone: [phone] Potassium [Moles/Vol] 3.4 mmol/L below low threshold 3.5 - 5.3 [facility] Work Phone: [phone] Sodium [Moles/Vol] 137 mmol/L 136 - 145 [facility] Work Phone: [phone] Urea nitrogen [Mass/Vol] 6 mg/dL 6 - 23 [facility] Work Phone: [phone] Laboratory - Microbiology an d Antimicrobial susceptibilityon 04-12-2022 Bacteria identified Aer cx Nom (Genital specimen) [facility] Work Phone: [phone] MAGNESIUMon 04-12-2022 Magnesium [Mass/Vol] 1.62 mg/dL Normal 1.60 - 2.40 [facility] Comment on above: Performed By: #### M G #### [place] [address] [place] [address] Magnesium, Serumon 2 Magnesium [Mass/Vol] 1.62 mg/dL See Below [facility] Work Phone: [phone] Comment on above: Reference Range: 1.6 0 - 2.40 No Panel Informationon 04-12 >90 >90 [facility] [address] [employer] Work Phone: [phone] Comment on above: CALCULATIONS OF ZOE MATED GFR ARE PERFORMED USING THE 2020 CKD-EPI STUDY REFIT EQUATION WITHOUT THE RACE VARIABLE FOR THE IDMS-TRACEABLE CREATININE METHODS.https://jasn.asnjournals.org/content//ASN .6217428850 Initial Visit (Nephrology)on 04-04-2022 Initial Visit (Nephrology) Diagnoses/Problems 35 weeks gestation of (V22.2) (Z3A.35) Hypokalemia (276.8) (E87.6) Flank pain, acute (789.09,338.19) (R10.9) Orders Start: Cyclobenzaprine HCl - 5 MG Oral Tablet; TAKE 1 TABLET 3 TIMES DAILY Basic Metabolic Panel; Status:Active; Requested for:[id number]; Magnesium, Serum; Status:Active; Requested for:[id number]; Patient Discussion/Summary On exam here in the office today it appears to me that her pain is musculoskeletal in nature. She has reproducible point tenderness running along the spine on the left side mostly A kidney punch does not elicit any pain She definitely though has abnormal issues going on including hypokalemia hypomagnesemia and now a normal anion gap metabolic acidosis She also has abnormal imaging on the renal ultrasound I do think she needs to have a work-up for this however with her impending delivery soon I do not think this is probably the right time to do a work-up for underlying renal wasting issue. I think for now we will continue to replace potassium and magnesium continue to follow these electrolytes closely I will give her a muscle relaxer again and start at low-dose and see if this helps with her muscular pain I have told her to start slow and slow and talk with Dr. Odell. I will follow along as needed for now once she has delivered and things have calm down I think we should revisit her renal dysfunction Please call with any issues or needs Provider Impressions Normal anion gap metabolic acidosis Hypokalemia Hypomagnesemia Relative hypotension Increased echogenicity of bilateral kidneys Twinkle artifact Chief Complaint New patient (referred by ) here today due to kidney pain. Had U/S this past sunday and there were no findings. History of Present IllnessShe is here for a new patient visit I was called by Dr. Odell secondary to flank pain with abnormal renal ultrasound. She was recently in the OB emergency clinic. She was there secondary to the flank pain. She had a metabolic panel drawn on April 03 Her hemoglobin is 11.0 Metabolic panel looks pretty good she is a little bit acidotic with a bicarb of 19 her potassium is 3.3 and she has required multiple recurrent replacements of her potassium. She has been running a little bit on the low side with her bicarb. Her last urinalysis was pretty bland. No protein or glucose. Her micro showed 12 white cells A renal ultrasound was performed. The ultrasound showed hyper echogenicity of both of her renal medullary pyramids. There was also some twinkle artifact within the right renal pyramids suggestive of medullary nephrocalcinosis. This is in conjunction with a slight normal anion gap metabolic acidosis Her medications include aspirin, citalopram, magnesium, metoclopramide, Zofran, potassium Her blood pressure today is 104/66 This is her fourth . She had low K with her daughter who was born early. She has had 1 miscarriage. Her BP has always been pretty normal. No family history of kidney issues. She has never had kidney pain. She still has the pain today. It is on the left side. Every once lisa while a littl red the right. Urinating fine. no swelling. She was given pain meds ast night and it has brought eh pain down some. Muscle relaxant did not help. Review of Systems Constitutional: no fever, no chills, no recent weight gain and no recent weight loss. Eyes: no blurred vision and no diplopia. ENT: no hearing loss, no earache, no sore throat, no swollen glands in the neck and no nasal discharge. Cardiovascular: no chest pain, no palpitations and no lower extremity edema. Respiratory: no shortness of breath, no chronic cough and no shortness of breath during exertion. Gastrointestinal: no abdominal pain, no constipation, no heartburn, no vomiting, no bloody stools and no change in bowel movements. Genitourinary: no dysuria and no hematuria. Musculoskeletal: no arthralgias and no myalgias. Skin: no rashes and no skin lesions. Neurological: no headaches and no dizziness. Psychiatric: no confusion, no depression and no anxiety. Endocrine: no heat intolerance, no cold intolerance, appetite not increased, no thyroid disorder, no increased urinary frequency and no dry skin. Hematologic/Lymphatic: does not bleed easily and does not bruise easily. All other systems have been reviewed and are negative for complaint. Active Problems 35 weeks gestation of (V22.2) (Z3A.35) Anxiety and depression (300.00,311) (F41.9,F32.A) Borderline personality disorder (301.83) (F60.3) Dizziness (780.4) (R42) Dysuria (788.1) (R30.0) Encounter for screening for cervical cancer (V76.2) (Z12.4) Encounter for supervision of high risk in third trimester, antepartum (V23.9) (O09.93) Flank pain, acute (789.09,338.19) (R10.9) History of PCOS (V13.29) (Z87.42) History of delivery, currently (V23.89) (O09.899) Hypokalemia ( (more content not included)... Normal [employer] Tobacco Screening.on 022 Tobacco use status CPHS a) Yes [facility] Raul [address] DO Work Phone: [phone] Tobacco Screening. Yes [facility] Raul 3 DO Work Phone: [phone] CBCon 04-03-2022 Erythrocyte distribution width (RBC) [Ratio] 14.2 % Normal 11.5 - 14.5 [facility] Comment on above: Performed By: #### H EPFP #### [address] [address] Hematocrit (Bld) [Volume fraction] 33.0 % Low 36.0 - 46.0 [facility] Comment on above: Performed By: #### H EPFP #### [address] [address] Hemoglobin (Bld) [Mass/Vol] 11.0 g/dL Low 12.0 - 16.0 [facility] Comment on above: Performed By: #### H EPFP #### [address] [address] MCHC (RBC) [Mass/Vol] 33.2 g/dL Normal 32.0 - 36.0 [facility] Comment on above: Performed By: #### H EPFP #### [address] [address] MCV (RBC) [Entitic vol] 87 fL Normal 80 - 100 [facility] Comment on above: Performed By: #### H EPFP #### [address] [address] Platelets (Bld) [#/Vol] 200 10*3/uL Normal 150 - 450 [facility] Comment on above: Performed By: #### H EPFP #### [address] [address] RBC 3.78 x10E12/L Low 4.00 - 5.20 [facility] Comment on above: Performed By: #### H EPFP #### [address] [address] WBC (Bld) [#/Vol] 10.3 10*3/uL Normal 4.4 - 11.3 [facility] Comment on above: Performed By: #### H EPFP #### [address] [address] CHEST 1 VIEWon 04-03-2022 CHEST 1 VIEW Patient Name: ROHAN MCCARTNEY STUDY: CHEST 1 VIEW; 04/03/2022 5:17 pm INDICATION: back pain L flank . COMPARISON: None. ACCESSION NUMBER(S): [id number] ORDERING CLINICIAN: DARNELL ODELL FINDINGS: Portable AP view in upright position. Lines tubes: None The cardiac silhouette is normal in size. No focal airspace consolidation or pleural effusion. No pneumothorax. No acute osseous changes. No acute abnormality within the visualized abdomen. IMPRESSION: No airspace consolidation or pleural effusion. Electronically signed by: PAOLA LOUIS MD Normal [facility] COMPREHENSIVE PANELon 2021 Albumin [Mass/Vol] 3.5 g/dL Normal 3.4 - 5.0 [facility] Comment on above: Performed By: #### C MP #### [address] [address] ALP [Catalytic activity/Vol] 90 U/L Normal 33 - 110 [facility] Comment on above: Performed By: #### C MP #### [address] [address] ALT [Catalytic activity/Vol] 5 U/L Low 7 - 45 [facility] Comment on above: Result Comment: Kimberly ents treated with Sulfasalazine may generate falsely decreased results for ALT. Performed By: #### C MP #### [address] [address] Anion gap [Moles/Vol] 14 mmol/L Normal 10 - 20 [facility] Comment on above: Performed By: #### C MP #### [address] [address] AST [Catalytic activity/Vol] 9 U/L Normal 9 - 39 [facility] Comment on above: Performed By: #### C MP #### [address] [address] Bilirubin [Mass/Vol] 0.3 mg/dL Normal 0.0 - 1.2 [facility] Comment on above: Performed By: #### C MP #### [address] [address] Calcium [Mass/Vol] 8.7 mg/dL Normal 8.6 - 10.3 [facility] Comment on above: Performed By: #### C MP #### [address] [address] Chloride [Moles/Vol] 108 mmol/L High 98 - 107 [facility] Comment on above: Performed By: #### C MP #### [address] [address] Creatinine [Mass/Vol] 0.64 mg/dL Normal 0.50 - 1.05 [facility] Comment on above: Performed By: #### C MP #### [address] [address] eGFR FEMALE >90 Normal >90 [facility] Comment on above: Result Comment: CALC ULATIONS OF ESTIMATED GFR ARE PERFORMED USING THE 2020 CKD-EPI STUDY REFIT EQUATION WITHOUT THE RACE VARIABLE FOR THE IDMS-TRACEABLE CREATININE METHODS. https://jasn.asnjournals.org/content/early/ASN.5733925 988 Performed By: #### C MP #### [address] [address] Glucose [Mass/Vol] 110 mg/dL High 74 - 99 [facility] Comment on above: Performed By: #### C MP #### [address] [address] HCO3 (Bld) [Moles/Vol] 19 mmol/L Low 21 - 32 [facility] Comment on above: Performed By: #### C MP #### [address] [address] Potassium [Moles/Vol] 3.3 mmol/L Low 3.5 - 5.3 [facility] Comment on above: Performed By: #### C MP #### [address] [address] Protein [Mass/Vol] 6.1 g/dL Low 6.4 - 8.2 [facility] Comment on above: Performed By: #### C MP #### [address] [address] Sodium [Moles/Vol] 138 mmol/L Normal 136 - 145 [facility] Comment on above: Performed By: #### C MP #### [address] [address] Urea nitrogen [Mass/Vol] 5 mg/dL Low 6 - 23 [facility] Comment on above: Performed By: #### C MP #### [address] [address] Cult, Urineon 04-03-2022 Bacteria identified Cx Nom (U) MP-Nephrolog y-[facility] 3 DO Work Phone: Daily Progress Note - OB-Tri ageon 04-03-2022 Daily Progress Note - OB-Triage Current Stage: Stage: Triage Subjective Data: Antepartum: Antepartum: 21yo @ 35/1 presents from office for left flank pain. Pt was seen 04/02 and worked for same complaint that has only go worse overnight and today. Pt notes 8/10 pain today, Tylenol is not helping, last does last night. Pt notes vomiting related to pain this am. Pt notes no real contractions. Denies fevers. Objective Information: Objective Information: T PRBPMAPSpO2 [id number] % Date/Time04/03 14: 14: 14: 14: 14: 14:36 Range(36.8C - 36.8C ) (102 - 102 ) (18 - 18 ) (125 - 125 )/ (70 - 70 ) (91 - 91 ) (98% - 98% ) Pain reported at 04/03 14:36: 8 = Severe Physical Exam: Constitutional: Mildly uncomfortable Obstetric: Cat I Wing irritabl Cx:Cl/Th/Hi from office right before sent to triage Eyes: EOMI Respiratory/Thorax: Nonlabored Cardiovascular: Regular rate Musculoskeletal: Left CVA tenderness with palpation. Minimal on right. Recent Lab Results: Results: I have reviewed these laboratory results: Urinalysis 02-Apr-2022 17:23:00 ResultValue Color, Urine Yellow Reference Range: STRAW,YELLOW Appearance, Urine HAZY Specific [place], Urine 1.005 pH, Urine 7.0 Protein, Urine NEGATIVE Glucose, Urine NEGATIVE Blood, Urine NEGATIVE Ketones, Urine NEGATIVE Bilirubin, Urine NEGATIVE Urobilinogen, Urine <2.0 Nitrite, Urine Negative Leukocyte Esterase, Urine LARGE(3+) A Urinalysis, Microscopic 02-Apr-2022 17:23:00 ResultValue White Cells 47 A WBC Clumps OCC Red Blood Cells 4 Epithelial Cells, Squamous 10 Bacteria, Urine 2+ A Culture, Urine 02-Apr-2022 17:23:00 ResultValue Culture, Urine NO SIGNIFICANT GROWTH. Complete Blood Count 02-Apr-2022 17:19:00 ResultValue White Blood Cell Count 10.1 Red Blood Cell Count 3.79 L HGB 11.3 L HCT 33.0 L MCV 87 MCHC 34.3 PLT 220 RDW-CV 14.2 Comprehensive Metabolic Panel 02-Apr-2022 17:19:00 ResultValue Glucose, Serum 108 H NA 139 K 3.0 L CL 108 H Bicarbonate, Serum 21 Anion Gap, Serum 13 BUN 4 L CREAT 0.62 GFR Female >90 Calcium, Serum 9.2 ALB 3.6 ALKP 94 T Pro 6.3 L T Bili 0.3 Alanine Aminotransferase, Serum 6 L Aspartate Transaminase, Serum 8 L Radiology Results: Results: Impression: No hydronephrosis. Diffuse abnormal hyperechogenicity of the bilateral renal medullary pyramids, as well as several areas of more focal pronounced hyperechogenicity and twinkle artifact within the right renal pyramids suggesting medullary nephrocalcinosis. Differential diagnosis is broad and includes iatrogenic (most commonly furosemide, hypervitaminosis D, or long-term corticosteroids); metabolic disease (including but not limited to idiopathic hypercalciuria, hyperparathyroidism, milk calculi syndrome, oxalosis, fanconi syndrome, hyperuricemia, chronic hypokalemia such as from primary aldosteronism). Integration of clinical, laboratory, and imaging findings is recommended. Ultrasound Renal Bilateral [Apr 02 2022 7:47PM] Assessment and Plan: Additional Dx: Left flank pain: Entered Date: 03-Apr-2022 15:22 35 weeks gestation of : Entered Date: 03-Apr-2022 15:22 Assessment: 1)left flank pain-worsening since yesterday. I reviewed her care for now with Dr. Garcia [facility], she decision was to repeat the lab work in triage today with a CBC CMP UA and attempt to treat her pain with fluids Tylenol Reglan. Urine culture was negative and so unlikely Peng we will repeat a UA today. Denies any fevers but does have nausea and vomiting. [facility] recommended touching base with urology for further recommendations potentially for stone versus other pathology. Discussed with Dr. Scruggs urology who did not think that the radiologic findings were consistent with a stone and a cause for her pain. Plan to get lab work and treat pain and plan to rediscussed with maternal- medicine. Unclear etiology of pain -D/w Dr. Garcia-plan was to try 5 mg of oxycodone and see if a chest x-ray to rule out any underlying left lower lobe pathology that could be causing pain. Otherwise does not consistent with a pyelonephritis picture. Ultrasound the kidneys overall benign though we question stone though urologist does not believe that that is the case on the consult. Baby is good no labor risk. Patient has no abdominal pain. We do not think the splenic rupture she otherwise is too clinically stable. Flexeril really did not doubt any musculoskeletal issue. Therefore we will treat with a few oxycodone overnight to see if would resolve, versus inpatient management and MacIS. Patient was okay with expectant management for now. Plan to discharge with a few oxycodone and told her to stay up with her Tylenol and antiemetics if she does not get behind. All questions answered. Pt had nephrology consult for this flank pa (more content not included)... [facility] Discharge Planning [id number] 0 04-03-2022 Discharge Planning Note2 Discharge Planning: Discharge Barriersnone Anticipated Discharge [id number] Assessment: Discharge Planning Assessment [id number] [facility]rived [facility] ([facility]) Discharge Documentation: Discharge/Transfer Date/[id number]-Fwm-2696 21:25 Discharged Accompanied Bysignificant other/partner Discharge Modeambulatory Transportation Methodprivate car Code StatusCode Status order at time of discharge: Full Code [place] DNR Form Sent with Patient and/or Familyn/a Final Disposition.Home Electronic Signatures: Beth Sanders (RN) (Signed 02-Apr-2022 22:20) Authored: Discharge Planning, Assessment, Discharge Documentation Last Updated: 02-Apr-2022 22:20 by Beth Sanders (RN) References: 1. Data Referenced From Triage Note - OB v4 02-Apr-2022 16:42 [facility] Discharge [id number] [id number] Discharge Profile2 Discharge Orders: Anticipated Discharge Date: Anticipated Discharge [id number] DNAR: Code Status at Discharge: Full Code Triage OB: Activity: Return to normal activity as tolerated. Call Provider If: Contractions or cramps become more frequent than 8 in one hour or 4 in 20 minutes. Pressure in your vagina or lower abdomen that may feel like the baby is pushing down. Period-like cramps or low dull backache that may come and go. Abdominal cramps that may be accompanied by diarrhea. Gush of fluid or blood from your vagina (it is normal to have spotting after vaginal exam or intercourse). Your baby is not moving as much as usual. Temperature greater than 100.4(F) orally. Severe headache which is not relieved in 30 minutes after taking Tylenol (Acetaminophen). Blurry vision or spots before your eyes. Severe heartburn or pain on the upper right side of your abdomen that is not relieved by an antacid. Signs of Depression. Examples include: 1. Persistent sadness 2. Frequent crying 3. Sleep problems 4. Excessive worrying 5. Feeling unable to cope. Diet: Increase fluid intake. Provider FINAL REVIEW of Orders: Final Review: Final Review of Medication Reconciliation and Orders Completedby Physician Reviewing ProviderDarnell Odell DO at 03-Apr-2022 17:50:28 Electronic Signatures: Darnell Odell () (Signed 03-Apr-2022 17:50) Authored: Discharge Orders, Provider FINAL REVIEW of Orders, Gold Form - Equipment Validation Engineer Summary Vaishali Diaz (RN) (Signed 03-Apr-2022 18:47) Authored: Triage OB Last Updated: 03-Apr-2022 18:47 by Vaishali Diaz (RN) [facility] Laboratory - Chemistry and C hemistry - challengeon 04-03-2022 Albumin BCP dye [Mass/Vol] 3.5 g/dL 3.4 - 5.0 [facility] [address] [employer] Work Phone: [phone] ALP [Catalytic activity/Vol] 90 U/L 33 - 110 [facility] [address] [employer] Work Phone: [phone] ALT With P-5'-P [Catalytic activity/Vol] 5 U/L below low threshold 7 - 45 [facility] [address] [employer] Work Phone: [phone] Comment on above: Patients treated wit h Sulfasalazine may generate falsely decreased results for ALT. Anion gap [Moles/Vol] 14 mmol/L 10 - 20 [facility] [address] [employer] Work Phone: [phone] AST With P-5'-P [Catalytic activity/Vol] 9 U/L 9 - 39 [facility] [address] [employer] Work Phone: [phone] Bilirubin [Mass/Vol] 0.3 mg/dL 0.0 - 1.2 [facility] [address] [employer] Work Phone: [phone] Calcium [Mass/Vol] 8.7 mg/dL 8.6 - 10.3 [facility] [address] [employer] Work Phone: [phone] Chloride [Moles/Vol] 108 mmol/L above high threshold 98 - 107 [facility] [address] [employer] Work Phone: [phone] CO2 [Moles/Vol] 19 mmol/L below low threshold 21 - 32 [facility] [address] [employer] Work Phone: [phone] Creatinine [Mass/Vol] 0.64 mg/dL See Below [facility] [address] Work Phone: [phone] Comment on above: Reference Range: 0.5 0 - 1.05 Glucose [Mass/Vol] 110 mg/dL above high threshold 74 - 99 [facility] [address] Work Phone: [phone] Potassium [Moles/Vol] 3.3 mmol/L below low threshold 3.5 - 5.3 [facility] [address] [employer] Work Phone: [phone] Protein [Mass/Vol] 6.1 g/dL below low threshold 6.4 - 8.2 [facility] [address] [employer] Work Phone: [phone] Sodium [Moles/Vol] 138 mmol/L 136 - 145 [facility] [address] [employer] Work Phone: [phone] Urea nitrogen [Mass/Vol] 5 mg/dL below low threshold 6 - 23 [facility] [address] [employer] Work Phone: [phone] Laboratory - Hematology and Cell countson 04-03-2022 Erythrocyte distribution width (RBC) [Ratio] 14.2 % See Below [facility] [address] [employer] Work Phone: [phone] Comment on above: Reference Range: 11. 5 - 14.5 Hematocrit (Bld) [Volume fraction] 33.0 % below low threshold See Below [facility] [address] [employer] Work Phone: [phone] Comment on above: Reference Range: 36. 0 - 46.0 Hemoglobin (Bld) [Mass/Vol] 11.0 g/dL below low threshold See Below [facility] [address] Work Phone: [phone] Comment on above: Reference Range: 12. 0 - 16.0 MCHC (RBC) [Mass/Vol] 33.2 g/dL See Below [facility] [address] Work Phone: [phone] Comment on above: Reference Range: 32. 0 - 36.0 MCV (RBC) [Entitic vol] 87 fL 80 - 100 [facility] [address] Work Phone: [phone] Platelets (Bld) [#/Vol] 200 10*3/uL 150 - 450 [facility] [address] Work Phone: [phone] RBC (Bld) [#/Vol] 3.78 {x10E12/L} below low threshold See Below [facility] [address] Work Phone: [phone] Comment on above: Reference Range: 4.0 0 - 5.20 WBC (Bld) [#/Vol] 10.3 10*3/uL 4.4 - 11.3 [facility] [address] Work Phone: [phone] No Panel Informationon 04-03 >90 >90 [facility] [address] [employer] Work Phone: [phone] Comment on above: CALCULATIONS OF ZOE MATED GFR ARE PERFORMED USING THE 2020 CKD-EPI STUDY REFIT EQUATION WITHOUT THE RACE VARIABLE FOR THE IDMS-TRACEABLE CREATININE METHODS.https://jasn.asnjournals.org/content//ASN .6038778955 Order Reconciliationon 04-03 Order Reconciliation Page 1 Discharge Reconciliation Document Reconciliation Type: Discharge requested on behalf of Darnell Odell (Physician) done by Darnell Odell (DO) Discharge - Reconciliation: 03-Apr-2022 17:46 by: Darnell Odell (DO) Home Medications EnteredHOME MEDICATIONS AT DISCHARGE DateReconciliation Comment/ Additional Information acetaminophen 325 mg oral tablet 2 tab(s) orally every 4 hours, As needed, Fever or Pain-Mild (1-3) 09-Mar-2022 15:31 acetaminophen 325 mg oral tablet 2 tab(s) orally every 4 hours, As needed, Fever or Pain-Mild (1-3) 09-Mar-2022 15:31 acetaminophen 325 mg oral tablet is continued as acetaminophen 325 mg oral tablet aspirin 81 mg oral delayed release capsule 05-Mar-2022 20:14 aspirin 81 mg oral delayed release capsule 05-Mar-2022 20:14 aspirin 81 mg oral delayed release capsule is continued as aspirin 81 mg oral delayed release capsule CeleXA 20 mg oral tablet 1 tab(s) orally once a day 05-Mar-2022 20:13 CeleXA 20 mg oral tablet 1 tab(s) orally once a day 05-Mar-2022 20:13 CeleXA 20 mg oral tablet is continued as CeleXA 20 mg oral tablet magnesium oxide 400 mg oral tablet 1 tab(s) orally 2 times a day 09-Mar-2022 15:32 magnesium oxide 400 mg oral tablet 1 tab(s) orally 2 times a day 09-Mar-2022 15:32 magnesium oxide 400 mg oral tablet is continued as magnesium oxide 400 mg oral tablet potassium chloride 20 mEq oral tablet, extended release 1 tab(s) orally 2 times a day 09-Mar-2022 15:32 potassium chloride 20 mEq oral tablet, extended release 1 tab(s) orally 2 times a day 09-Mar-2022 15:32 potassium chloride 20 mEq oral tablet, extended release is continued as potassium chloride 20 mEq oral tablet, extended release Reglan 10 mg oral tablet 1 tab(s) orally every 8 hours 09-Mar-2022 15:33 Reglan 10 mg oral tablet 1 tab(s) orally every 8 hours 09-Mar-2022 15:33 Reglan 10 mg oral tablet is continued as Reglan 10 mg oral tablet Current OrdersDateHOME MEDICATIONS AT DISCHARGE DateReconciliation Comment/ Additional Information hydrALAZINE (APRESOLINE) Injectable DOSE = 5 mg IntraVenous Push Once, PRN Acute-onset, severe HTN w/out known, suspected CADClinician Notes: Consult provider prior to administration. Push over more than 2 minutes. Systolic greater than or equal to 16 03-Apr-2022 14:28 hydrALAZINE (APRESOLINE) Injectable is not required Labetalol Injectable (TRANDATE)DOSE = 20 mg IntraVenous Push Once, PRN Acute-onset, sev HTN w/o active asthma/ eliel<60Clinician Notes: Consult provider prior to administration. Push over more than 2 minutes. Systolic greater than or equal to 160 OR 03-Apr-2022 14:28 Labetalol Injectable is not required Lactated Ringers IV Bolus DOSE = 1,000 mL Once, PRN Emesis and unable to tolerate oral intakeInfuse over 1 hour(s) 03-Apr-2022 14:28 Lactated Ringers IV Bolus is not required NIFEdipine (PROCARDIA) Immediate Release CapsuleDOSE = 10 mg Oral Once, PRN Acute-onset, severe HTN w/out IV access/ pref oralClinician Notes: Consult provider prior to administration. Systolic greater than or equal to 160 OR Diastolic greater than or 03-Apr-2022 14:28 NIFEdipine (PROCARDIA) Immediate Release is not required Home Medications Added During Discharge Reconciliation oxyCODONE 5 mg oral tablet 1 tab(s) orally every 6 hours All Active Home Medications at time of Discharge Reconciliation: 03-Apr-2022 17:46 acetaminophen 325 mg oral tablet 2 tab(s) orally every 4 hours, As needed, Fever or Pain-Mild (1-3) aspirin 81 mg oral delayed release capsule CeleXA 20 mg oral tablet 1 tab(s) orally once a day magnesium oxide 400 mg oral tablet 1 tab(s) orally 2 times a day oxyCODONE 5 mg oral tablet 1 tab(s) orally every 6 hours potassium chloride 20 mEq oral tablet, extended release 1 tab(s) orally 2 times a day Reglan 10 mg oral tablet 1 tab(s) orally every 8 hours [facility] Radiologyon 04-03-2022 XR Chest Single view Normal [facility] [address] [employer] Work Phone: Risk Screen - OB Triageon Risk Screen - OB Triage Allergies: Allergies: Allergies: Singulair: Other Latuda: Other Latex: Swelling/Edema, Rash Patient Verification: Patient Verification: New W ID Band Applied in my Departmentyes Patient Identity Verified Bypatient ID Band FULL Name, include Middle, spelling matches patient's ID used for verificationyes ID Band Matches Patient ID used for Verficationyes ID Band MRN Matches EMR MRNyes Travel History: Travel History: COVID-19 Screening Completedno exposure or symptoms Travel or Exposure Past 30 DaysNO travel to International locations in the past 30 days Advance Directives: Advance Directive: Advance Directive/DNRno Advance Directive Information Givenpatient/family declined Falls Risk: Persaud Fall Screen: History of falling (immediate or previous)no (0) Secondary Diagnosisyes (15) Intravenous Therapy/ Heparin/Saline Lockyes (20) Gait/Transferringnormal/ bedrest/wheelchair (0) Ambulatory Aidsnone/bedrest/nurse assist (0) Mental Statusoriented to own ability (0) Score: Low risk (<25). Moderate risk (25-44). High risk (>44).35 Persaud InterventionsMODERATE INTERVENTIONS: *Low Interventions Plus: * falls risk band/sticker applied to patient, *yellow non-skid footwear, *instruct to call for assistance before getting out of bed, *bed/chair/bedside commode/toilet alarms, *sensory devices/ambulatory aides available and in reach, *medications reviewed for potential side effects and care planning., strongly recommended: gait belts with ambulation Learning Assessment (Patient): Learning Assessment (Patient): Patient is Able to be Assessed for Learningyes Factors Influencing Readiness to Learninterest in learning; pain Factors that Impact Ability to Learnvisual problems Devices/Methods Used to Communicateglasses Learning Preferencesskill demonstration; verbal instruction; written material Cultural Considerationsnone Developmental Considerationsnone Voodoo Considerationsnone Learning Assessment (Other Learner): Other learner availableno Depression/Suicide: Depression Screen: During the past month, have you often been bothered by feeling down, depressed or hopelessno During the past month, have you often had little interest or pleasure in doing thingsno Have you had any thoughts of harming anyone elseno [place] Suicide: Risk Screen Not Applicable/Able to Answerable to be screened In the Past Month: Have you wished you were or could go to sleep and not wake upno In the Past Month: Have you had any actual thoughts of killing yourselfno Lifetime: Have you ever done, started to do, or prepared to do anything to end your lifeno [place] Suicide Risknegative Family Violence: Abuse Screen: Are you or have you been threatened or abused physically, emotionally, or sexually by anyoneno Do you feel UNSAFE going back to the place where you are livingno Clinical assessment: Are there any apparent signs of injuries/behaviors that could be related to abuse/neglectno Electronic Signatures: Vaishali Diaz (RN) (Signed 03-Apr-2022 16:00) Authored: Allergies, Patient Verification, Travel History, Advance Directives, Persaud Fall Screen, Learning Assessment (Patient), Learning Assessment (Other Learner), Depression/Suicide, Family Violence Last Updated: 03-Apr-2022 16:00 by Vaishali Diaz (RN) [facility] Triage Note - OB v4on 2021 Triage Note - OB v4 Triage: General Info: Time of Arrival on [id number] 14:26 [facility] Level4 Time Acuity Level Nwesygwy27-Czg-0794 14:35 Modified Acuity Level4 Time Modified Acuity Level Qiyxgcsr99-Bob-8152 18:24 Chief Complaintflank pain Spoken Language PreferredEnglish (1) Source of Informationpatient Weight in kg89.2 kilogram(s) Weight in myv736.6 pound(s) Weight Methodactual (measured) Scale Typestanding Height in feet4 feet Height in bxigsk97.98 inch(es) Height in cm149.8 centimeter(s) Height Methodstated BMI (kg/m2)39.75 square meter Patient Belongingsremains with patient Patient Belongings Remaining with Patientcell phone/electronics; clothing Home Meds have been Reviewed and Verified with Patient/Familyyes Info: Gravida4 Term Deliveries1 Deliveries1 Abortions1 Living Children2 Patient stated [id number] Calculation of EGA based on patient stated EDD35.1 Records availableyes Trimester Care Initiatedfirst Current Risksanemia, obesity, Hypokalemia Previous live (any gestational age)yes All Previous /Delivery Complicationspreeclampsi a, delivery, labor Substance: Smoking Statuslight user (uses <10 cig/day, OR <0.5 ppd, OR 1 can/pouch loose leaf tobacco per week, OR <0.5 vape pods per day) (1) Tobacco Cessation Education (provide if tobacco use within the last 12 mos) patient declined Alcohol Usedenies(1) Drug Usedenies (1) Drug 2 Usedenies (1) Disposition/Disch: Dispositiondischarged from facility, home with own care Patient Meets Criteria for Home Blood Pressure Monitorno Admission/Observation/Di scharge/Transfer Date/Caaz79-Bbq-2143 18:50 Discharged Accompanied Bysignificant other/partner Discharge Modeambulatory Transportation Methodprivate car Travel History: Travel or ExposureNO travel to International locations in the past 30 days Additional Information: Information Review: Allergies have been Reviewed and Verified with Patient/Familyyes Allergy, Intolerance, Adverse Event: Allergies: Singulair: Drug, Other, Active Latuda: Drug, Other, Active Latex: Latex, Swelling/Edema, Rash, Active Electronic Signatures: Vaishali Diaz (RN) (Signed 03-Apr-2022 20:24) Authored: General Info, Disposition/Disch Sheree Fraga (RN) (Signed 03-Apr-2022 15:22) Authored: General Info, Info, Substance, Travel History, Additional Information Last Updated: 03-Apr-2022 20:24 by Vaishali Diaz (CONCHITA) References: 1. Data Referenced From Triage Note - OB v4 02-Apr-2022 16:42 Normal [facility] UA MICROSCOPICon 04-03-2022 AMORPHOUS CRYSTAL 1+ /HPF Normal [facility] Comment on above: Performed By: #### U AMIC ####[place] [address] BACTERIA 1+ /HPF Abnormal [facility] Comment on above: Performed By: #### U AMIC ####[place] [address] RBC (U) [#/Vol] /uL Normal 0-5 [facility] Comment on above: Performed By: #### U AMIC ####[address] [address] SQUAMOUS EPITH. CELLS 3 /HPF Normal [facility] Comment on above: Performed By: #### U AMIC ####[place] [id number] WBC 12 /HPF Abnormal 0-5 [facility] Comment on above: Performed By: #### U AMIC ####[address] [address] URINALYSIS WITH CULTURE IF I NDICATEDon 04-03-2022 Appearance (U) HAZY Normal CLEAR [facility] Comment on above: Performed By: #### H EPFP #### [address] [address] Bilirubin Ql (U) Negative Normal NEGATIVE [facility] Comment on above: Performed By: #### H EPFP #### [address] [address] Color (U) Straw Normal STRAW,YELLOW [facility] Comment on above: Performed By: #### H EPFP #### [address] [address] Glucose Ql (U) Negative Normal NEGATIVE [facility] Comment on above: Performed By: #### H EPFP #### [place] [id number] Hemoglobin Ql (U) Negative Normal NEGATIVE [facility] Comment on above: Performed By: #### H EPFP #### [place] [id number] Ketones Ql (U) Negative Normal NEGATIVE [facility] Comment on above: Performed By: #### H EPFP #### [place] [address] Leukocyte esterase Test strip Ql (U) MODERATE(2+) Abnormal NEGATIVE [facility] Comment on above: Performed By: #### H EPFP #### [place] [address] Nitrite Ql (U) Negative Normal NEGATIVE [facility] Comment on above: Performed By: #### H EPFP #### [place] [id number] pH (U) 7.0 [pH] Normal 5.0 - 8.0 [facility] Comment on above: Performed By: #### H EPFP #### [place] [address] Protein Ql (U) Negative Normal NEGATIVE [facility] Comment on above: Performed By: #### H EPFP #### [address] [address] Specific gravity (U) [Rel density] 1.003 Low 1.005 - 1.035 [facility] Comment on above: Performed By: #### H EPFP #### [address] [address] Urobilinogen (U) [Mass/Vol] mg/dL Normal 0.0 - 1.9 [facility] Comment on above: Performed By: #### H EPFP #### [facility] [address] [place] [address] Color (U) Straw See Below [facility] [address] Work Phone: [phone] Comment on above: Reference Range: STR AW,YELLOW Glucose Ql (U) Negative NEGATIVE [facility] [address] Work Phone: [phone] Ketones Ql (U) Negative NEGATIVE [facility] [address] Work Phone: [phone] Leukocyte esterase Test strip Ql (U) MODERATE(2+) Abnormal NEGATIVE [facility] [address] Work Phone: [phone] pH (U) 7.0 [pH] 5.0 - 8.0 [facility] [address] [employer] Work Phone: [phone] Protein (U) [Mass/Vol] Negative NEGATIVE [facility] [address] Work Phone: [phone] RBC (U) [#/Vol] Negative NEGATIVE [facility] [employer] Work Phone: [phone] Specific gravity (U) [Rel density] 1.003 1 below low threshold See Below [facility] [address] Work Phone: [phone] Comment on above: Reference Range: 1.0 05 - 1.035 URINALYSIS WITH CULTURE IF INDICATED Negative NEGATIVE [facility] [address] Work Phone: [phone] URINALYSIS WITH CULTURE IF INDICATED <2.0 0.0 - 1.9 [facility] [address] Work Phone: [phone] URINALYSIS WITH CULTURE IF INDICATED HAZY CLEAR [facility] [address] Work Phone: [phone] URINE CULTURE,BACTERIALon URINE CULTURE,BACTERIAL PATIENT: ROHAN MCCARTNEY LOCATION: [facility]#: [id number] : 89 AGE: SEX: F ORDERED BY: DARNELL ODELL SOURCE: URINE COLLECTED: 04/03/22 15:31 ANTIBIOTICS AT LU.: RECEIVED : 04/04/22 00:00 SITE: R E S U L T S URINE CULTURE,BACTERIAL FINAL 04/04/22 21:52 NO SIGNIFICANT GROWTH. Normal [facility] Comment on above: Performed By: #### T +S #### [address] [address] Urinalysis, Microscopicon Urinalysis, Microscopic 1+ Abnormal [facility] [address] [employer] Work Phone: [phone] Urinalysis, Microscopic 3 {/HPF} [facility] [address] Work Phone: [phone] Urinalysis, Microscopic <1 0-5 [facility] [address] Work Phone: [phone] Urinalysis, Microscopic 12 {/HPF} Abnormal 0-5 [facility] [address] [employer] Work Phone: [phone] CBCon 04-02-2022 Erythrocyte distribution width (RBC) [Ratio] 14.2 % Normal 11.5 - 14.5 [facility] Comment on above: Performed By: #### C BC ####[address] [address] Hematocrit (Bld) [Volume fraction] 33.0 % Low 36.0 - 46.0 [facility] Comment on above: Performed By: #### C BC ####[address] [address] Hemoglobin (Bld) [Mass/Vol] 11.3 g/dL Low 12.0 - 16.0 [facility] Comment on above: Performed By: #### C BC ####[address] [address] MCHC (RBC) [Mass/Vol] 34.3 g/dL Normal 32.0 - 36.0 [facility] Comment on above: Performed By: #### C BC ####[address] [address] MCV (RBC) [Entitic vol] 87 fL Normal 80 - 100 [facility] Comment on above: Performed By: #### C BC ####[address] [address] Platelets (Bld) [#/Vol] 220 10*3/uL Normal 150 - 450 [facility] Comment on above: Performed By: #### C BC ####[address] [address] RBC 3.79 x10E12/L Low 4.00 - 5.20 [facility] Comment on above: Performed By: #### C BC ####[address] [address] WBC (Bld) [#/Vol] 10.1 10*3/uL Normal 4.4 - 11.3 [facility] Comment on above: Performed By: #### C BC ####[address] [address] COMPREHENSIVE PANELon 2021 Albumin [Mass/Vol] 3.6 g/dL Normal 3.4 - 5.0 [facility] Comment on above: Performed By: #### C MP #### [address] [address] ALP [Catalytic activity/Vol] 94 U/L Normal 33 - 110 [facility] Comment on above: Performed By: #### C MP #### [address] [address] ALT [Catalytic activity/Vol] 6 U/L Low 7 - 45 [facility] Comment on above: Result Comment: Kimberly ents treated with Sulfasalazine may generate falsely decreased results for ALT. Performed By: #### C MP #### [address] [address] Anion gap [Moles/Vol] 13 mmol/L Normal 10 - 20 [facility] Comment on above: Performed By: #### C MP #### [address] [address] AST [Catalytic activity/Vol] 8 U/L Low 9 - 39 [facility] Comment on above: Performed By: #### C MP #### [address] [place] [address] Bilirubin [Mass/Vol] 0.3 mg/dL Normal 0.0 - 1.2 [facility] Comment on above: Performed By: #### C MP #### [address] [address] Calcium [Mass/Vol] 9.2 mg/dL Normal 8.6 - 10.3 [facility] Comment on above: Performed By: #### C MP #### [address] [address] Chloride [Moles/Vol] 108 mmol/L High 98 - 107 [facility] Comment on above: Performed By: #### C MP #### [address] [address] Creatinine [Mass/Vol] 0.62 mg/dL Normal 0.50 - 1.05 [facility] Comment on above: Performed By: #### C MP #### [address] [address] eGFR FEMALE >90 Normal >90 [facility] Comment on above: Result Comment: CALC ULATIONS OF ESTIMATED GFR ARE PERFORMED USING THE 2020 CKD-EPI STUDY REFIT EQUATION WITHOUT THE RACE VARIABLE FOR THE IDMS-TRACEABLE CREATININE METHODS. https://jasn.asnjournals.org/content/early/ASN.9961316 988 Performed By: #### C MP #### [address] [address] Glucose [Mass/Vol] 108 mg/dL High 74 - 99 [facility] Comment on above: Performed By: #### C MP #### [address] [address] HCO3 (Bld) [Moles/Vol] 21 mmol/L Normal 21 - 32 [facility] Comment on above: Performed By: #### C MP #### [address] [address] Potassium [Moles/Vol] 3.0 mmol/L Low 3.5 - 5.3 [facility] Comment on above: Performed By: #### C MP #### [place] [address] [place] [address] Protein [Mass/Vol] 6.3 g/dL Low 6.4 - 8.2 [facility] Comment on above: Performed By: #### C MP #### [address] [address] Sodium [Moles/Vol] 139 mmol/L Normal 136 - 145 [facility] Comment on above: Performed By: #### C MP #### [address] [address] Urea nitrogen [Mass/Vol] 4 mg/dL Low 6 - 23 [facility] Comment on above: Performed By: #### C MP #### [address] [address] Cult, Urineon 04-02-2022 Bacteria identified Cx Nom (U) [facility] [address] [employer] Work Phone: [phone] Laboratory - Chemistry and C hemistry - challengeon 04-02-2022 Albumin BCP dye [Mass/Vol] 3.6 g/dL 3.4 - 5.0 [facility] [address] [employer] Work Phone: [phone] ALP [Catalytic activity/Vol] 94 U/L 33 - 110 [facility] [address] [employer] Work Phone: [phone] ALT With P-5'-P [Catalytic activity/Vol] 6 U/L below low threshold 7 - 45 [facility] [address] [employer] Work Phone: [phone] Comment on above: Patients treated wit h Sulfasalazine may generate falsely decreased results for ALT. Anion gap [Moles/Vol] 13 mmol/L 10 - 20 [facility] [address] [employer] Work Phone: [phone] AST With P-5'-P [Catalytic activity/Vol] 8 U/L below low threshold 9 - 39 [facility] [address] [employer] Work Phone: [phone] Bilirubin [Mass/Vol] 0.3 mg/dL 0.0 - 1.2 [facility] [address] Work Phone: [phone] Calcium [Mass/Vol] 9.2 mg/dL 8.6 - 10.3 [facility] [address] [employer] Work Phone: [phone] Chloride [Moles/Vol] 108 mmol/L above high threshold 98 - 107 [facility] [address] [employer] Work Phone: [phone] CO2 [Moles/Vol] 21 mmol/L 21 - 32 [facility] Work Phone: [phone] Creatinine [Mass/Vol] 0.62 mg/dL See Below [facility] [address] [employer] Work Phone: [phone] Comment on above: Reference Range: 0.5 0 - 1.05 Glucose [Mass/Vol] 108 mg/dL above high threshold 74 - 99 [facility] [address] [employer] Work Phone: [phone] Potassium [Moles/Vol] 3.0 mmol/L below low threshold 3.5 - 5.3 [facility] Work Phone: [phone] Protein [Mass/Vol] 6.3 g/dL below low threshold 6.4 - 8.2 [facility] Work Phone: [phone] Sodium [Moles/Vol] 139 mmol/L 136 - 145 [facility] [address] [employer] Work Phone: [phone] Urea nitrogen [Mass/Vol] 4 mg/dL below low threshold 6 - 23 [facility] Work Phone: [phone] Laboratory - Hematology and Cell countson 04-02-2022 Erythrocyte distribution width (RBC) [Ratio] 14.2 % See Below [facility] [address] [employer] Work Phone: [phone] Comment on above: Reference Range: 11. 5 - 14.5 Hematocrit (Bld) [Volume fraction] 33.0 % below low threshold See Below [facility] [address] [employer] Work Phone: [phone] Comment on above: Reference Range: 36. 0 - 46.0 Hemoglobin (Bld) [Mass/Vol] 11.3 g/dL below low threshold See Below [facility] [address] Work Phone: [phone] Comment on above: Reference Range: 12. 0 - 16.0 MCHC (RBC) [Mass/Vol] 34.3 g/dL See Below [facility] [address] Work Phone: [phone] Comment on above: Reference Range: 32. 0 - 36.0 MCV (RBC) [Entitic vol] 87 fL 80 - 100 [facility] [address] Work Phone: [phone] Platelets (Bld) [#/Vol] 220 10*3/uL 150 - 450 [facility] [address] Work Phone: [phone] RBC (Bld) [#/Vol] 3.79 {x10E12/L} below low threshold See Below [facility] [address] Work Phone: [phone] Comment on above: Reference Range: 4.0 0 - 5.20 WBC (Bld) [#/Vol] 10.1 10*3/uL 4.4 - 11.3 [facility] [address] Work Phone: [phone] No Panel Informationon 04-02 >90 >90 [facility] [address] Work Phone: [phone] Comment on above: CALCULATIONS OF ZOE MATED GFR ARE PERFORMED USING THE 2020 CKD-EPI STUDY REFIT EQUATION WITHOUT THE RACE VARIABLE FOR THE IDMS-TRACEABLE CREATININE METHODS.https://jasn.asnjournals.org/content/early/ASN .4769849075 Radiologyon 04-02-2022 US Kidney - bilateral Normal [facility] [address] [employer] Work Phone: Risk Screen - OB Triageon Risk Screen - OB Triage Allergies: Allergies: Allergies: Singulair: Other Latuda: Other Latex: Swelling/Edema, Rash Patient Verification: Patient Verification: New W ID Band Applied in my Departmentyes Patient Identity Verified Bypatient ID Band FULL Name, include Middle, spelling matches patient's ID used for verificationyes ID Band Matches Patient ID used for Verficationyes ID Band MRN Matches EMR MRNyes Travel History: Travel History: COVID-19 Screening Completedno exposure or symptoms Travel or Exposure Past 30 DaysNO travel to International locations in the past 30 days Advance Directives: Advance Directive: Advance Directive/DNRno Advance Directive Information Givenpatient/family declined Falls Risk: Persaud Fall Screen: History of falling (immediate or previous)no (0) Secondary Diagnosisyes (15) Intravenous Therapy/ Heparin/Saline Lockyes (20) Gait/Transferringnormal/ bedrest/wheelchair (0) Ambulatory Aidsnone/bedrest/nurse assist (0) Mental Statusoriented to own ability (0) Score: Low risk (<25). Moderate risk (25-44). High risk (>44).35 Persaud InterventionsMODERATE INTERVENTIONS: *Low Interventions Plus: * falls risk band/sticker applied to patient, *yellow non-skid footwear, *instruct to call for assistance before getting out of bed, *bed/chair/bedside commode/toilet alarms, *sensory devices/ambulatory aides available and in reach, *medications reviewed for potential side effects and care planning., strongly recommended: gait belts with ambulation Learning Assessment (Patient): Learning Assessment (Patient): Patient is Able to be Assessed for Learningyes Factors Influencing Readiness to Learnanxiety; depression; fatigue; pain Factors that Impact Ability to Learnnone Devices/Methods Used to Communicateglasses Learning Preferencesindividual instruction; skill demonstration; written material Cultural Considerationsnone Developmental Considerationsnone Voodoo Considerationsnone Learning Assessment (Other Learner): Other learner availableno Depression/Suicide: Depression Screen: During the past month, have you often been bothered by feeling down, depressed or hopelessno During the past month, have you often had little interest or pleasure in doing thingsno Have you had any thoughts of harming anyone elseno [place] Suicide: Risk Screen Not Applicable/Able to Answerable to be screened In the Past Month: Have you wished you were or could go to sleep and not wake upno In the Past Month: Have you had any actual thoughts of killing yourselfno Lifetime: Have you ever done, started to do, or prepared to do anything to end your lifeno [place] Suicide Risknegative Family Violence: Abuse Screen: Are you or have you been threatened or abused physically, emotionally, or sexually by anyoneno Do you feel UNSAFE going back to the place where you are livingno Clinical assessment: Are there any apparent signs of injuries/behaviors that could be related to abuse/neglectno Electronic Signatures: Beth Sanders (RN) (Signed 02-Apr-2022 17:41) Authored: Allergies, Patient Verification, Travel History, Advance Directives, Persaud Fall Screen, Learning Assessment (Patient), Learning Assessment (Other Learner), Depression/Suicide, Family Violence Last Updated: 02-Apr-2022 17:41 by Beth Sanders (RN) [facility] Triage Note - OB v4on 2021 Triage Note - OB v4 Triage: General Info: Time of Arrival on [id number] 16:24 Patient arrived viawheelchair Arrived Fromamericus Acuity Level3 Time Acuity Level [id number] 16:25 Chief ComplaintBack pain Spoken Language PreferredEnglish (1) Weight in kg89.6 kilogram(s) Weight in rcp605.5 pound(s) Weight Methodactual (measured) Scale Typestanding Pre Weight (lb)190 pound(s) Total Weight Gain (lb)7 pound(s) Height in feet4 feet Height in .98 inch(es) Height in cm149.8 centimeter(s) Height Methodstated BMI (kg/m2)39.928 square meter Patient Belongingsremains with patient Patient Belongings Remaining with Patientcell phone/electronics; clothing Home Meds have been Reviewed and Verified with Patient/Familyyes Info: Gravida4 Term Deliveries1 Deliveries1 Abortions1 Living Children2 Patient stated [id number] Calculation of EGA based on patient stated EDD35 Records availableyes Trimester Care Initiatedfirst Current Risksanemia, obesity, Hypokalemia Previous live (any gestational age)yes All Previous /Delivery Complicationspreeclampsi a, delivery, labor Substance: Smoking Statuslight user (uses <10 cig/day, OR <0.5 ppd, OR 1 can/pouch loose leaf tobacco per week, OR <0.5 vape pods per day) Tobacco Cessation Education (provide if tobacco use within the last 12 mos) patient declined Alcohol Usedenies Drug Usedenies Drug 2 Usedenies Disposition/Disch: Dispositiondischarged from facility, home with own care Patient Meets Criteria for Home Blood Pressure Monitorno Admission/Observation/Di scharge/Transfer Date/[id number] 21:25 Discharged Accompanied Bysignificant other/partner Discharge Modeambulatory Transportation Methodprivate car Travel History: Travel or ExposureNO travel to International locations in the past 30 days Additional Information: Information Review: Allergies have been Reviewed and Verified with Patient/Familyyes Allergy, Intolerance, Adverse Event: Allergies: Singulair: Drug, Other, Active Latuda: Drug, Other, Active Latex: Latex, Swelling/Edema, Rash, Active Electronic Signatures: Beth Sanders (RN) (Signed 02-Apr-2022 21:39) Authored: Disposition/Disch Teodoro Calderon) (Signed 02-Apr-2022 16:49) Authored: General Info, Info, Substance, Disposition/Disch, Travel History, Additional Information Last Updated: 02-Apr-2022 21:39 by Beth Sanders (CONCHITA) References: 1. Data Referenced From Triage Note - OB v4 08-Mar-2022 15:17 Normal [facility] UA MICROSCOPICon 04-02-2022 BACTERIA 2+ /HPF Abnormal [facility] Comment on above: Performed By: #### H EPFP #### [place] [address] RBC 4 /HPF Normal 0-5 [facility] Comment on above: Performed By: #### H EPFP #### [place] [address] SQUAMOUS EPITH. CELLS 10 /HPF Normal [facility] Comment on above: Performed By: #### H EPFP #### [address] [address] WBC 47 /HPF Abnormal 0-5 [facility] Comment on above: Performed By: #### H EPFP #### [address] [address] WBC CLUMPS OCC Normal [facility] Comment on above: Performed By: #### H EPFP #### [address] [address] URINALYSISon 04-02-2022 Appearance (U) HAZY Normal CLEAR [facility] Comment on above: Performed By: #### H EPFP #### [address] [address] Bilirubin Ql (U) Negative Normal NEGATIVE [facility] Comment on above: Performed By: #### H EPFP #### [place] [id number] Color (U) Yellow Normal STRAW,YELLOW [facility] Comment on above: Performed By: #### H EPFP #### [address] [address] Glucose Ql (U) Negative Normal NEGATIVE [facility] Comment on above: Performed By: #### H EPFP #### [address] [address] Hemoglobin Ql (U) Negative Normal NEGATIVE [facility] Comment on above: Performed By: #### H EPFP #### [address] [address] Ketones Ql (U) Negative Normal NEGATIVE [facility] Comment on above: Performed By: #### H EPFP #### [address] [address] Leukocyte esterase Test strip Ql (U) LARGE(3+) Abnormal NEGATIVE [facility] Comment on above: Performed By: #### H EPFP #### [address] [address] Nitrite Ql (U) Negative Normal NEGATIVE [facility] Comment on above: Performed By: #### H EPFP #### [address] [address] pH (U) 7.0 [pH] Normal 5.0 - 8.0 [facility] Comment on above: Performed By: #### H EPFP #### [address] [address] Protein Ql (U) Negative Normal NEGATIVE [facility] Comment on above: Performed By: #### H EPFP #### [address] [address] Specific gravity (U) [Rel density] 1.005 Normal 1.005 - 1.035 [facility] Comment on above: Performed By: #### H EPFP #### [address] [address] Urobilinogen (U) [Mass/Vol] mg/dL Normal 0.0 - 1.9 [facility] Comment on above: Performed By: #### H EPFP #### [address] [address] URINE CULTURE,BACTERIALon URINE CULTURE,BACTERIAL PATIENT: ROHAN MCCARTNEY LOCATION: [facility]#: [id number] : 89 AGE: SEX: F ORDERED BY: AIDAN MULTANI SOURCE: URINE COLLECTED: 04/02/22 17:23 ANTIBIOTICS AT LU.: RECEIVED : 04/02/22 20:18 SITE: R E S U L T S URINE CULTURE,BACTERIAL FINAL 04/03/22 12:35 NO SIGNIFICANT GROWTH. Normal [facility] Comment on above: Performed By: #### C BC #### [place] [id number] US RENAL BILATon 04-02-2022 US RENAL BILAT Patient Name: ROHAN MCCARTNEY STUDY: US RENAL BILAT; 04/02/2022 6:48 pm INDICATION: left sharp back pain . COMPARISON: None. ACCESSION NUMBER(S): [id number] ORDERING CLINICIAN: AIDAN MULTANI TECHNIQUE: Grayscale and color Doppler sonographic images of the kidneys. FINDINGS: RIGHT KIDNEY: The right kidney measures 11.1 cm in length. There is diffuse hyperechogenicity of the renal pyramids. There is no significant shadowing; however, there are several areas of relatively greater hyperechogenicity with twinkle artifact (image [id number]) suggestive of calcification. There is a 1.7 cm cyst in the inferior pole of the kidney. Renal cortical thickness and echogenicity is normal. No hydronephrosis. No renal calculus or perinephric fluid. LEFT KIDNEY: The left kidney measures 11.7 cm in length. Similar to the right kidney, there is diffuse hyperechogenicity of the renal pyramids. Renal cortical thickness is within normal limits. No hydronephrosis. No renal calculus or perinephric fluid. URINARY BLADDER: Suboptimally evaluated, without evidence of intraluminal filling defect or wall thickening. IMPRESSION: No hydronephrosis. Diffuse abnormal hyperechogenicity of the bilateral renal medullary pyramids, as well as several areas of more focal pronounced hyperechogenicity and twinkle artifact within the right renal pyramids suggesting medullary nephrocalcinosis. Differential diagnosis is broad and includes iatrogenic (most commonly furosemide, hypervitaminosis D, or long-term corticosteroids); metabolic disease (including but not limited to idiopathic hypercalciuria, hyperparathyroidism, milk calculi syndrome, oxalosis, fanconi syndrome, hyperuricemia, chronic hypokalemia such as from primary aldosteronism). Integration of clinical, laboratory, and imaging findings is recommended. Electronically signed by: MURALI HUTCHINSON MD [facility] Urinalysison 04-02-2022 Color (U) Yellow See Below [employer] Work Phone: [phone] Comment on above: Reference Range: STR AW,YELLOW Glucose Ql (U) Negative NEGATIVE [employer] Work Phone: [phone] Ketones Ql (U) Negative NEGATIVE [employer] Work Phone: [phone] Leukocyte esterase Test strip Ql (U) LARGE(3+) Abnormal NEGATIVE [employer] Work Phone: [phone] pH (U) 7.0 [pH] 5.0 - 8.0 [facility] Work Phone: [phone] Protein (U) [Mass/Vol] Negative NEGATIVE [employer] [facility] Work Phone: [phone] RBC (U) [#/Vol] Negative NEGATIVE [facility] Work Phone: [phone] Specific gravity (U) [Rel density] 1.005 1 See Below [facility] Work Phone: [phone] Comment on above: Reference Range: 1.0 05 - 1.035 Urinalysis Negative NEGATIVE [facility] [address] Work Phone: [phone] Urinalysis <2.0 0.0 - 1.9 [facility] [address] Work Phone: [phone] Urinalysis HAZY CLEAR [facility] [employer] Work Phone: [phone] Urinalysis, Microscopicon Urinalysis, Microscopic 2+ Abnormal [facility] [address] [employer] Work Phone: [phone] Urinalysis, Microscopic 10 {/HPF} [facility] [address] [employer] Work Phone: [phone] Urinalysis, Microscopic 4 {/HPF} 0-5 [facility] Work Phone: [phone] Urinalysis, Microscopic OCC [facility] Work Phone: [phone] Urinalysis, Microscopic 47 {/HPF} Abnormal 0-5 [facility] [address] [employer] Work Phone: [phone] Laboratory - Chemistry and C hemistry - challengeon 03-29-2022 Potassium [Moles/Vol] 3.3 mmol/L below low threshold 3.5 - 5.3 [facility] [address] [employer] Work Phone: [phone] POTASSIUMon 03-29-2022 Potassium [Moles/Vol] 3.3 mmol/L Low 3.5 - 5.3 [facility] Comment on above: Performed By: #### K #### [place] [address] Cult, Urineon 03-22-2022 Bacteria identified Cx Nom (U) [facility] [address] [employer] Work Phone: [phone] URINE CULTURE,BACTERIALon URINE CULTURE,BACTERIAL PATIENT: ROHAN MCCARTNEY [place] [facility] [place] [id number] : 89 AGE: SEX: F ORDERED BY: DARNELL ODELL SOURCE: URINE COLLECTED: 03/22/22 14:02 ANTIBIOTICS AT LU.: RECEIVED : 03/23/22 06:12 SITE: Clean Catch/Voided R E S U L T S URINE CULTURE,BACTERIAL FINAL 03/24/22 00:16 NO SIGNIFICANT GROWTH. Normal [facility] Comment on above: Performed By: #### C MP #### [address] [address] BASIC METABOLIC PANELon 08- Anion gap [Moles/Vol] 13 mmol/L Normal 10 - 20 [facility] [address] Work Phone: [phone] Comment on above: Performed By: #### C MP #### [address] [address] Calcium [Mass/Vol] 8.9 mg/dL Normal 8.6 - 10.3 [facility] [address] Work Phone: [phone] Comment on above: Performed By: #### C MP #### [address] [address] Chloride [Moles/Vol] 105 mmol/L Normal 98 - 107 [facility] [address] Work Phone: [phone] Comment on above: Performed By: #### C MP #### [address] [address] Creatinine [Mass/Vol] 0.71 mg/dL Normal 0.50 - 1.05 [facility] [address] Work Phone: Comment on above: Reference Range: 0.5 0 - 1.05 Performed By: #### C MP #### [address] [address] eGFR FEMALE >90 Normal >90 [facility] Comment on above: Result Comment: CALC ULATIONS OF ESTIMATED GFR ARE PERFORMED USING THE 2020 CKD-EPI STUDY REFIT EQUATION WITHOUT THE RACE VARIABLE FOR THE IDMS-TRACEABLE CREATININE METHODS. https://jasn.asnjournals.org/content/early//ASN.6458749 988 Performed By: #### C MP #### [address] [address] Glucose [Mass/Vol] 98 mg/dL Normal 74 - 99 [facility] [address] Work Phone: [phone] Comment on above: Performed By: #### C MP #### [address] [address] HCO3 (Bld) [Moles/Vol] 22 mmol/L Normal 21 - 32 [facility] Comment on above: Performed By: #### C MP #### [address] [address] Potassium [Moles/Vol] 3.6 mmol/L Normal 3.5 - 5.3 [facility] [address] Work Phone: [phone] Comment on above: Performed By: #### C MP #### [address] [address] Sodium [Moles/Vol] 136 mmol/L Normal 136 - 145 [facility] [address] Work Phone: [phone] Comment on above: Performed By: #### C MP #### [address] [address] Urea nitrogen [Mass/Vol] 6 mg/dL Normal 6 - 23 [facility] [address] Work Phone: [phone] Comment on above: Performed By: #### C MP #### [address] [address] CBC ANEMIA PANEL WITH REFLEX ,PREGNANCYon 03-15-2022 Erythrocyte distribution width (RBC) [Ratio] 13.8 % Normal 11.5 - 14.5 [facility] [address] Work Phone: [phone] Comment on above: Reference Range: 11. 5 - 14.5 Performed By: #### A NEMI #### [address] [address] Hematocrit (Bld) [Volume fraction] 34.1 % Low 36.0 - 46.0 [facility] [address] Work Phone: [phone] Comment on above: Reference Range: 36. 0 - 46.0 Performed By: #### A NEMI #### [address] [address] Hemoglobin (Bld) [Mass/Vol] 11.3 g/dL Low 12.0 - 16.0 [facility] [address] Work Phone: [phone] Comment on above: Reference Range: 12. 0 - 16.0 Performed By: #### A NEMI #### [address] [address] MCHC (RBC) [Mass/Vol] 33.1 g/dL Normal 32.0 - 36.0 [facility] [address] Work Phone: [phone] Comment on above: Reference Range: 32. 0 - 36.0 Performed By: #### A NEMI #### [address] [address] MCV (RBC) [Entitic vol] 87 fL Normal 80 - 100 [facility] [address] Work Phone: [phone] Comment on above: Performed By: #### A NEMI #### [address] [address] Platelets (Bld) [#/Vol] 217 10*3/uL Normal 150 - 450 [facility] [address] Work Phone: [phone] Comment on above: Performed By: #### A NEMI #### [address] [address] RBC 3.89 x10E12/L Low 4.00 - 5.20 [facility] Comment on above: Performed By: #### A NEMI #### [address] [address] REFLEX ADDED, ANEMIA PANEL NONE Normal [facility] Comment on above: Performed By: #### A NEMI #### [address] [address] WBC (Bld) [#/Vol] 10.6 10*3/uL Normal 4.4 - 11.3 [facility] [employer] Work Phone: [phone] Comment on above: Performed By: #### A NEMI #### [address] [address] GLUCOSE,1 HR SCREEN, PREGon 03-15-2022 Glucose [Mass/Vol] 101 mg/dL Normal <135 [facility] [place] Comment on above: Result Comment: Diag nostic value with glucose loading dose of 50 g. Reference values from [place] [employer]. Diabetes Care 2015;38(Suppl.1):S8-S16 Performed By: #### C MP #### [address] [address] Glucose, 1 Hour Screen, Preg nancyon 03-15-2022 Glucose 1 Hr post 50 g glucose PO [Mass/Vol] 101 mg/dL <135 [facility] [place] [address] [employer] Work Phone: [phone] Comment on above: Diagnostic value wit h glucose loading dose of 50 g. Reference values from [place]. Diabetes Care 2015;38(Suppl.1):S8-S16 Laboratory - Chemistry and C hemistry - challengeon 03-15-2022 CO2 [Moles/Vol] 22 mmol/L 21 - 32 [facility] [address] [employer] Work Phone: [phone] Laboratory - Hematology and Cell countson 03-15-2022 RBC (Bld) [#/Vol] 3.89 {x10E12/L} below low threshold See Below [facility] [place] [address] [employer] Work Phone: [phone] Comment on above: Reference Range: 4.0 0 - 5.20 Magnesium, Serumon 2 Magnesium [Mass/Vol] 1.70 mg/dL Normal 1.60 - 2.40 [facility] [employer] Work Phone: [phone] Comment on above: Reference Range: 1.6 0 - 2.40 Performed By: #### C MP #### [address] [address] No Panel Informationon 03-15 >90 >90 [facility] [address] [employer] Work Phone: [phone] Comment on above: CALCULATIONS OF ZOE MATED GFR ARE PERFORMED USING THE 2020 CKD-EPI STUDY REFIT EQUATION WITHOUT THE RACE VARIABLE FOR THE IDMS-TRACEABLE CREATININE METHODS.https://jasn.asnjournals.org/content//ASN .7576941955 NONE [facility] [address] [employer] Work Phone: COMPREHENSIVE PANELon 2021 Albumin [Mass/Vol] 3.1 g/dL Low 3.4 - 5.0 [facility] Comment on above: Performed By: #### C MP ####[address] [address] ALP [Catalytic activity/Vol] 69 U/L Normal 33 - 110 [facility] Comment on above: Performed By: #### C MP ####[address] [address] ALT [Catalytic activity/Vol] 6 U/L Low 7 - 45 [facility] Comment on above: Result Comment: Kimberly ents treated with Sulfasalazine may generate falsely decreased results for ALT. Performed By: #### C MP ####[address] [address] Anion gap [Moles/Vol] 11 mmol/L Normal 10 - 20 [facility] Comment on above: Performed By: #### C MP ####[address] [address] AST [Catalytic activity/Vol] 7 U/L Low 9 - 39 [facility] Comment on above: Performed By: #### C MP ####[address] [address] Bilirubin [Mass/Vol] 0.3 mg/dL Normal 0.0 - 1.2 [facility] Comment on above: Performed By: #### C MP ####[address] [address] Calcium [Mass/Vol] 8.6 mg/dL Normal 8.6 - 10.3 [facility] Comment on above: Performed By: #### C MP ####[address] [address] Chloride [Moles/Vol] 109 mmol/L High 98 - 107 [facility] Comment on above: Performed By: #### C MP ####[address] [address] Creatinine [Mass/Vol] 0.66 mg/dL Normal 0.50 - 1.05 [facility] Comment on above: Performed By: #### C MP ####[address] [address] eGFR FEMALE >90 Normal >90 [facility] Comment on above: Result Comment: CALC ULATIONS OF ESTIMATED GFR ARE PERFORMED USING THE 2020 CKD-EPI STUDY REFIT EQUATION WITHOUT THE RACE VARIABLE FOR THE IDMS-TRACEABLE CREATININE METHODS. https://jasn.asnjournals.org/content//ASN.6902503 988 Performed By: #### C MP ####[address] [address] Glucose [Mass/Vol] 101 mg/dL High 74 - 99 [facility] Comment on above: Performed By: #### C MP ####[address] [address] HCO3 (Bld) [Moles/Vol] 22 mmol/L Normal 21 - 32 [facility] Comment on above: Performed By: #### C MP ####[address] [address] Potassium [Moles/Vol] 3.0 mmol/L Low 3.5 - 5.3 [facility] Comment on above: Performed By: #### C MP ####[address] [address] Protein [Mass/Vol] 5.3 g/dL Low 6.4 - 8.2 [facility] Comment on above: Performed By: #### C MP ####[address] [address] Sodium [Moles/Vol] 139 mmol/L Normal 136 - 145 [facility] Comment on above: Performed By: #### C MP ####[address] [place] [address] Urea nitrogen [Mass/Vol] 6 mg/dL Normal 6 - 23 [facility] Comment on above: Performed By: #### C MP ####[address] [place] [address] Discharge [id number] Discharge Profile2 Discharge Orders: Anticipated Discharge Date: Anticipated Discharge [id number] Problem List: Additional Dx: 31 weeks gestation of : Catalog Name: 31 weeks gestation of DNAR: Code Status at Discharge: Full Code Antepartum: Activity: Return to normal activity as tolerated. Assess movements daily. Call Provider If: New onset of vaginal bleeding.. Temperature greater than 100.4 degrees Fahrenheit. Signs of Depression. Examples include: 1. Persistent sadness 2. Frequent crying 3. Sleep problems 4. Excessive worrying 5. Feeling unable to cope. Any noticeable change in baby kicks or movement. Any leakage of fluid. Diet: Regular. Follow-Up - OB Provider: Physician/Dept/ServiceOB Provider Dr Odell Call to Schedule in1 week Other Clinician Instructions: Other Instructions: Other Clinician Instructionstake your Blood pressure 2 times a day BP- if > or = 140/90 repeat every hour X 3 if it persists >or + 140/90 call your doctor if office is closed, call the hospital and ask for the doctor healthcare market [facility] # [phone] BP- if > or = 160/110 repeat every 15 minutes X 2 if it persists go to the hospital and call your doctor or hospital on your way there Call Provider If: Regular painful contractions every 5 min or less for one hour. Time your contractions from the beginning of one to the beginning of another. Pressure in your vagina or lower abdomen that may feel like the baby is pushing down. Gush of fluid or blood from the vagina (it is normal to have spotting after vaginal exam or intercourse). Your baby is not moving as much as usual. Electronic Signatures: Yoselin Sifuentes) (Signed 09-Mar-2022 15:32) Authored: Discharge Orders, Other Clinician Instructions, Gold Form - Equipment Validation Engineer Summary Aidan Multani) (Signed 09-Mar-2022 16:07) Authored: Discharge Orders, Antepartum Last Updated: 09-Mar-2022 16:07 by Aidan Multani) [facility] - Chemistry and C hemistry - challengeon 03-09-2022 Potassium [Moles/Vol] 3.5 mmol/L 3.5 - 5.3 [facility] [address] Work Phone: [phone] Albumin BCP dye [Mass/Vol] 3.1 g/dL below low threshold 3.4 - 5.0 [facility] [address] Work Phone: [phone] ALP [Catalytic activity/Vol] 69 U/L 33 - 110 [facility] [address] Work Phone: [phone] ALT With P-5'-P [Catalytic activity/Vol] 6 U/L below low threshold 7 - 45 [facility] [address] [employer] Work Phone: [phone] Comment on above: Patients treated wit h Sulfasalazine may generate falsely decreased results for ALT. Anion gap [Moles/Vol] 11 mmol/L 10 - 20 [facility] [address] Work Phone: [phone] AST With P-5'-P [Catalytic activity/Vol] 7 U/L below low threshold 9 - 39 [facility] [address] Work Phone: [phone] Bilirubin [Mass/Vol] 0.3 mg/dL 0.0 - 1.2 [facility] [address] Work Phone: [phone] Calcium [Mass/Vol] 8.6 mg/dL 8.6 - 10.3 [facility] [address] Work Phone: [phone] Chloride [Moles/Vol] 109 mmol/L above high threshold 98 - 107 [facility] [address] Work Phone: [phone] CO2 [Moles/Vol] 22 mmol/L 21 - 32 [facility] [address] Work Phone: [phone] Creatinine [Mass/Vol] 0.66 mg/dL See Below [facility] [address] Work Phone: [phone] Comment on above: Reference Range: 0.5 0 - 1.05 Glucose [Mass/Vol] 101 mg/dL above high threshold 74 - 99 [facility] [address] Work Phone: [phone] Potassium [Moles/Vol] 3.0 mmol/L below low threshold 3.5 - 5.3 [facility] [address] Work Phone: [phone] Protein [Mass/Vol] 5.3 g/dL below low threshold 6.4 - 8.2 [facility] [address] Work Phone: [phone] Sodium [Moles/Vol] 139 mmol/L 136 - 145 [facility] [address] Work Phone: [phone] Urea nitrogen [Mass/Vol] 6 mg/dL 6 - 23 [facility] [address] Work Phone: [phone] MAGNESIUMon 03-09-2022 Magnesium [Mass/Vol] 1.52 mg/dL Low 1.60 - 2.40 [facility] Comment on above: Performed By: #### M G #### [facility] [address] [id number] Magnesium, Serumon Magnesium [Mass/Vol] 1.52 mg/dL below low threshold See Below [facility] [address] Work Phone: [phone] Comment on above: Reference Range: 1.6 0 - 2.40 No Panel Informationon 03-09 >90 >90 [facility] [address] Work Phone: [phone] Comment on above: CALCULATIONS OF ZOE MATED GFR ARE PERFORMED USING THE 2020 CKD-EPI STUDY REFIT EQUATION WITHOUT THE RACE VARIABLE FOR THE IDMS-TRACEABLE CREATININE METHODS.https://jasn.asnjournals.org/content//ASN .2268418767 Order Reconciliationon 03-09 Order Reconciliation Page 1 Discharge Reconciliation Document Reconciliation Type: Discharge requested on behalf of Aidan Multani (Physician) done by Aidan Multani) Discharge - Reconciliation: 09-Mar-2022 15:34 by: Aidan Multani) Home Medications EnteredHOME MEDICATIONS AT DISCHARGE DateReconciliation Comment/ Additional Information aspirin 81 mg oral delayed release capsule 05-Mar-2022 20:14 aspirin 81 mg oral delayed release capsule 05-Mar-2022 20:14 aspirin 81 mg oral delayed release capsule is continued as aspirin 81 mg oral delayed release capsule CeleXA 20 mg oral tablet 1 tab(s) orally once a day 05-Mar-2022 20:13 CeleXA 20 mg oral tablet 1 tab(s) orally once a day 05-Mar-2022 20:13 CeleXA 20 mg oral tablet is continued as CeleXA 20 mg oral tablet Current OrdersDateHOME MEDICATIONS AT DISCHARGE DateReconciliation Comment/ Additional Information Acetaminophen Tablet (TYLENOL)DOSE = 650 mg Oral Every 4 Hours, PRN Fever or Pain-Mild (1-3) 08-Mar-2022 18:23 acetaminophen 325 mg oral tablet 2 tab(s) orally every 4 hours, As needed, Fever or Pain-Mild (1-3) 09-Mar-2022 15:31 Acetaminophen is continued as acetaminophen 325 mg oral tablet Docusate Capsule (COLACE)DOSE = 100 mg Oral 2 Times a Day, PRN Hard stool 08-Mar-2022 18:23 Docusate is not required Enoxaparin SubCutaneous (LOVENOX)DOSE = 40 mg SubCutaneous Every 24 HoursClinician Notes: Wait 4 hours after neuraxial catheter removal AND 12 hours after placement of neuraxial catheter. BMI less than 35 with a score greater than 5 OR BMI 35 to 39. 08-Mar-2022 18:23 Enoxaparin SubCutaneous is not required Escitalopram Tablet (LEXAPRO)DOSE = 10 mg Oral DailyClinician Notes: Therapeutic interchange for citalopram 20mg 09-Mar-2022 06:28 Escitalopram is not required hydrALAZINE (APRESOLINE) Injectable DOSE = 5 mg IntraVenous Push Once, PRN Acute-onset, severe HTN w/out known, suspected CADClinician Notes: Consult provider prior to administration. Push over more than 2 minutes. Systolic greater than or equal to 16 08-Mar-2022 14:05 hydrALAZINE (APRESOLINE) Injectable is not required Labetalol Injectable (TRANDATE)DOSE = 20 mg IntraVenous Push Once, PRN Acute-onset, sev HTN w/o active asthma/ eliel<60Clinician Notes: Consult provider prior to administration. Push over more than 2 minutes. Systolic greater than or equal to 160 OR 08-Mar-2022 14:05 Labetalol Injectable is not required Lidocaine 1% Injectable DOSE = 0.5 mL SubCutaneous Once, PRN Prior to IV InsertionStop After 2 Doses 08-Mar-2022 18:23 Lidocaine 1% Injectable is not required Magnesium Hydroxide -Al Hydrox -Simethicone Oral Liquid (MAALOX)DOSE = 30 mL Oral Every 6 Hours, PRN Epigastric Pain 08-Mar-2022 18:23 Magnesium Hydroxide -Al Hydrox -Simethicone Oral Liquid is not required Magnesium Hydroxide Oral Liquid CONCENTRATE (MILK OF MAGNESIA)DOSE = 10 mL Oral Every 12 Hours, PRN Constipation 08-Mar-2022 18:23 Magnesium Hydroxide Oral Liquid CONCENTRATE is not required Magnesium Oxide Tablet (Mag-Ox)DOSE = 400 mg Oral 2 Times a Day 08-Mar-2022 18:13 magnesium oxide 400 mg oral tablet 1 tab(s) orally 2 times a day 09-Mar-2022 15:32 Prescription is created for magnesium oxide 400 mg oral tablet NIFEdipine (PROCARDIA) Immediate Release CapsuleDOSE = 10 mg Oral Once, PRN Acute-onset, severe HTN w/out IV access/ pref oralClinician Notes: Consult provider prior to administration. Systolic greater than or equal to 160 OR Diastolic greater than or 08-Mar-2022 14:05 NIFEdipine (PROCARDIA) Immediate Release is not required Ondansetron Injectable (ZOFRAN)DOSE = 4 mg IntraVenous Push Every 6 Hours, PRN Nausea 08-Mar-2022 18:23 Ondansetron Injectable is not required Potassium Chloride Extended Release Tablet, Extended ReleaseDOSE = 20 mEq Oral 2 Times a Day 08-Mar-2022 18:13 potassium chloride 20 mEq oral tablet, extended release 1 tab(s) orally 2 times a day 09-Mar-2022 15:32 Prescription is created for potassium chloride 20 mEq oral tablet, extended release with Folic Acid Tablet ( VITAMIN)DOSE = 1 tablet(s) Oral Daily 08-Mar-2022 18:23 with Folic Acid is not required Psyllium Packet (METAMUCIL)DOSE = 1 packet(s) Oral Daily, PRN Difficulty emptying bowelsClinician Notes: Provide with orange juice or water 08-Mar-2022 18:23 Psyllium Packet is not required Sodium Chloride 0.9% Injectable Flush via Peripheral LineVolume = 10 mL IntraVenous Flush Every 12 Hours and as Needed 08-Mar-2022 18:23 Sodium Chloride 0.9% Injectable Flush is not required SUMAtriptan Tablet (IMITREX)DOSE = 50 mg Oral Every 2 Hours, PRN MigraineStop After 4 Doses 08-Mar-2022 18:31 SUMAtriptan is not required Home Medications Added During Discharge Reconciliation Discharge Discharge Diagnosis< [id number].31 31 weeks gestation of Discharge Provider, Aidan Multani Discharge Disposition : .Home Condition at Discharge: Satisfactory Discharge Communication I (more content not included)... Normal [facility] POTASSIUMon 03-09-2022 Potassium [Moles/Vol] 3.5 mmol/L Normal 3.5 - 5.3 [facility] Comment on above: Performed By: #### C MP #### [place] [address] CBCon 03-08-2022 Erythrocyte distribution width (RBC) [Ratio] 13.1 % Normal 11.5 - 14.5 [facility] Comment on above: Performed By: #### C BC ####[place] [address] Hematocrit (Bld) [Volume fraction] 30.7 % Low 36.0 - 46.0 [facility] Comment on above: Performed By: #### C BC ####[id number] Hemoglobin (Bld) [Mass/Vol] 10.6 g/dL Low 12.0 - 16.0 [facility] Comment on above: Performed By: #### C BC ####[id number] MCHC (RBC) [Mass/Vol] 34.5 g/dL Normal 32.0 - 36.0 [facility] Comment on above: Performed By: #### C BC ####[address] [address] MCV (RBC) [Entitic vol] 86 fL Normal 80 - 100 [facility] Comment on above: Performed By: #### C BC ####[place] [id number] Platelets (Bld) [#/Vol] 190 10*3/uL Normal 150 - 450 [facility] Comment on above: Performed By: #### C BC ####[address] [id number] RBC 3.58 x10E12/L Low 4.00 - 5.20 [facility] Comment on above: Performed By: #### C BC ####[address] [id number] WBC (Bld) [#/Vol] 10.5 10*3/uL Normal 4.4 - 11.3 [facility] Comment on above: Performed By: #### C BC ####[address] [id number] COMPREHENSIVE PANELon 2021 Albumin [Mass/Vol] 3.3 g/dL Low 3.4 - 5.0 [facility] Comment on above: Order Comment: Vamsi lora- RB to Marcela Collin , 03/08/2022 15:54 Performed By: #### C MP #### [address] [id number] ALP [Catalytic activity/Vol] 78 U/L Normal 33 - 110 [facility] Comment on above: Order Comment: Vamsi d- RB to Marcela Polanco , 03/08/2022 15:54 Performed By: #### C MP #### [address] [id number] ALT [Catalytic activity/Vol] 6 U/L Low 7 - 45 [facility] Comment on above: Order Comment: Vamsi d- RB to Marcela Polanco , 03/08/2022 15:54 Result Comment: Kimberly ents treated with Sulfasalazine may generate falsely decreased results for ALT. Performed By: #### C MP #### [address] [address] Anion gap [Moles/Vol] 14 mmol/L Normal 10 - 20 [facility] Comment on above: Order Comment: Agustin d- RB to Marcela Polanco , 03/08/2022 15:54 Performed By: #### C MP #### [address] [address] AST [Catalytic activity/Vol] 10 U/L Normal 9 - 39 [facility] Comment on above: Order Comment: Agustin d- RB to Marcela Polanco , 03/08/2022 15:54 Performed By: #### C MP #### [address] [address] Bilirubin [Mass/Vol] 0.3 mg/dL Normal 0.0 - 1.2 [facility] Comment on above: Order Comment: Agustin d- RB to Marcela Polanco , 03/08/2022 15:54 Performed By: #### C MP #### [id number] Calcium [Mass/Vol] 8.9 mg/dL Normal 8.6 - 10.3 [facility] Comment on above: Order Comment: Agustin d- RB to Marcela Polanco , 03/08/2022 15:54 Performed By: #### C MP #### [address] [address] Chloride [Moles/Vol] 106 mmol/L Normal 98 - 107 [facility] Comment on above: Order Comment: Agustin d- RB to Marcela Polanco , 03/08/2022 15:54 Performed By: #### C MP #### [address] [address] Creatinine [Mass/Vol] 0.63 mg/dL Normal 0.50 - 1.05 [facility] Comment on above: Order Comment: Agustin d- RB to Marcela Polanco , 03/08/2022 15:54 Performed By: #### C MP #### [address] [address] eGFR FEMALE >90 Normal >90 [facility] Comment on above: Order Comment: Agustin d- RB to Marcela Polanco , 03/08/2022 15:54 Result Comment: CALC ULATIONS OF ESTIMATED GFR ARE PERFORMED USING THE 2020 CKD-EPI STUDY REFIT EQUATION WITHOUT THE RACE VARIABLE FOR THE IDMS-TRACEABLE CREATININE METHODS. https://jasn.asnjournals.org/content/early//ASN.1024211 988 Performed By: #### C MP #### [address] [address] Glucose [Mass/Vol] 80 mg/dL Normal 74 - 99 [facility] Comment on above: Order Comment: Agustin d- RB to Marcela Polanco , 03/08/2022 15:54 Performed By: #### C MP #### [address] [address] HCO3 (Bld) [Moles/Vol] 22 mmol/L Normal 21 - 32 [facility] Comment on above: Order Comment: Agustin d- RB to Marcela Polanco , 03/08/2022 15:54 Performed By: #### C MP #### [address] [address] Potassium [Moles/Vol] 2.8 mmol/L Critically low 3.5 - 5.3 [facility] Comment on above: Order Comment: Agustin d- RB to Marcela Polanco , 03/08/2022 15:54 Result Comment: Call ed- RB to Marcela Polanco , 03/08/2022 15:54 Performed By: #### C MP #### [address] [address] Protein [Mass/Vol] 5.8 g/dL Low 6.4 - 8.2 [facility] Comment on above: Order Comment: Agustin d- RB to Marcela Polanco , 03/08/2022 15:54 Performed By: #### C MP #### [address] [address] Sodium [Moles/Vol] 139 mmol/L Normal 136 - 145 [facility] Comment on above: Order Comment: Agustin d- RB to Marcela Polanco , 03/08/2022 15:54 Performed By: #### C MP #### [place] [address] Urea nitrogen [Mass/Vol] 5 mg/dL Low 6 - 23 [facility] Comment on above: Order Comment: Vamsi QUIJANO to Marcela Polanco , 03/08/2022 15:54 Performed By: #### C MP #### [place] [address] CORONAVIRUS 2019, SCREEN ASY MPTOMATICon 03-08-2022 Lab Specimen Source Nasal, Nasopharyngeal Normal [facility] Comment on above: Performed By: #### C OVSC ####[place] [address] SARS-CoV-2 (COVID-19) RNA BRANDI+probe Ql (Unsp spec) Not detected Normal Not Detected [facility] Comment on above: Result Comment: . This test has received FDA Emergency Use Authorization (EUA) and has been verified by [facility]. This test is only authorized for the duration of time that circumstances exist to justify the authorization of the emergency use of in vitro diagnostic tests for the detection of SARS-CoV-2 virus and/or diagnosis of COVID-19 infection under section 564(b)(1) of the Act, 21 U.S.C. 360bbb-3(b)(1), unless the authorization is terminated or revoked sooner. [facility] is certified under CLIA-88 as qualified to perform high complexity testing. Testing is performed in the [facility] laboratory located at [address] [place] [address]. SARS-CoV-2/Flu/RSV Multiplex Test: Fact sheet for providers: https://www.fda.gov/media/084069/download Fact sheet for patients: https://www.fda.gov/media/824765/download Performed By: #### C OVSC ####[place] [address] Coronavirus 2019 RNA by PCR, Screening Asymptomticon 03-08-2022 Coronavirus 2019 RNA by PCR, Screening Asymptomtic Not detected Normal See Below [facility] [employer] Work Phone: Comment on above: SOURCE: Nasal, Nasop haryngealReference Range: Not Detected.This test has received FDA Emergency Use Authorization (EUA) and has been verified by [facility]. This test is only authorized for the duration of time that circumstances exist to justify the authorization of the emergency use of in vitro diagnostic tests for the detection of SARS-CoV-2 virus and/or diagnosis of COVID-19 infection under section 564(b)(1) of the Act, 21 U.S.C. 360bbb-3(b)(1), unless the authorization is terminated or revoked sooner. [facility] is certified under CLIA-88 as qualified to perform high complexity testing. Testing is performed in the [facility] laboratory located at [address] [place] [address].SARS-CoV-2/Flu/RSV Multiplex Test: Fact sheet for providers: https://www.fda.gov/media/416485/downloadFact sheet for patients: https://www.fda.gov/media/313926/download Laboratory - Chemistry and C hemistry - challengeon 03-08-2022 Albumin BCP dye [Mass/Vol] 3.3 g/dL below low threshold 3.4 - 5.0 [facility] [employer] Work Phone: [phone] ALP [Catalytic activity/Vol] 78 U/L 33 - 110 [facility] [employer] Work Phone: [phone] ALT With P-5'-P [Catalytic activity/Vol] 6 U/L below low threshold 7 - 45 [facility] [employer] Work Phone: [phone] Comment on above: Patients treated wit h Sulfasalazine may generate falsely decreased results for ALT. Anion gap [Moles/Vol] 14 mmol/L 10 - 20 [facility] [employer] Work Phone: [phone] AST With P-5'-P [Catalytic activity/Vol] 10 U/L 9 - 39 [facility] [employer] Work Phone: [phone] Bilirubin [Mass/Vol] 0.3 mg/dL 0.0 - 1.2 [facility] [address] Work Phone: [phone] Calcium [Mass/Vol] 8.9 mg/dL 8.6 - 10.3 [facility] [address] Work Phone: [phone] Chloride [Moles/Vol] 106 mmol/L 98 - 107 [facility] [address] Work Phone: [phone] CO2 [Moles/Vol] 22 mmol/L 21 - 32 [facility] [address] Work Phone: [phone] Creatinine [Mass/Vol] 0.63 mg/dL See Below [facility] [address] Work Phone: [phone] Comment on above: Reference Range: 0.5 0 - 1.05 Glucose [Mass/Vol] 80 mg/dL 74 - 99 [facility] [address] Work Phone: [phone] Potassium [Moles/Vol] 2.8 mmol/L Critically low 3.5 - 5.3 [facility] [address] Work Phone: [phone] Comment on above: Called- RB to Marcela Polanco , 03/08/2022 15:54 Protein [Mass/Vol] 5.8 g/dL below low threshold 6.4 - 8.2 [facility] [address] Work Phone: [phone] Sodium [Moles/Vol] 139 mmol/L 136 - 145 [facility] [address] Work Phone: [phone] Urea nitrogen [Mass/Vol] 5 mg/dL below low threshold 6 - 23 [facility] [address] Work Phone: [phone] Laboratory - Hematology and Cell countson 03-08-2022 Erythrocyte distribution width (RBC) [Ratio] 13.1 % See Below [facility] [address] Work Phone: [phone] Comment on above: Reference Range: 11. 5 - 14.5 Hematocrit (Bld) [Volume fraction] 30.7 % below low threshold See Below [facility] [address] Work Phone: [phone] Comment on above: Reference Range: 36. 0 - 46.0 Hemoglobin (Bld) [Mass/Vol] 10.6 g/dL below low threshold See Below [facility] [address] Work Phone: [phone] Comment on above: Reference Range: 12. 0 - 16.0 MCHC (RBC) [Mass/Vol] 34.5 g/dL See Below [facility] [employer] Work Phone: [phone] Comment on above: Reference Range: 32. 0 - 36.0 MCV (RBC) [Entitic vol] 86 fL 80 - 100 [facility] [employer] Work Phone: [phone] Platelets (Bld) [#/Vol] 190 10*3/uL 150 - 450 [facility] [employer] Work Phone: [phone] RBC (Bld) [#/Vol] 3.58 {x10E12/L} below low threshold See Below [facility] [employer] Work Phone: [phone] Comment on above: Reference Range: 4.0 0 - 5.20 WBC (Bld) [#/Vol] 10.5 10*3/uL 4.4 - 11.3 [facility] [employer] Work Phone: [phone] No Panel Informationon 03-08 >90 >90 [facility] [place] [address] [employer] Work Phone: [phone] Comment on above: CALCULATIONS OF ZOE MATED GFR ARE PERFORMED USING THE 2020 CKD-EPI STUDY REFIT EQUATION WITHOUT THE RACE VARIABLE FOR THE IDMS-TRACEABLE CREATININE METHODS.https://jasn.asnjournals.org/content//ASN .6885435374 Risk Screen - OB Triageon Risk Screen - OB Triage Allergies: Allergies: Allergies: Singulair: Other Latuda: Other Latex: Swelling/Edema, Rash Patient Verification: Patient Verification: New W ID Band Applied in my Departmentyes Patient Identity Verified Bypatient ID Band FULL Name, include Middle, spelling matches patient's ID used for verificationyes ID Band Matches Patient ID used for Verficationyes ID Band MRN Matches EMR MRNyes Travel History: Travel History: COVID-19 Screening Completedno exposure or symptoms Travel or Exposure Past 30 DaysNO travel to International locations in the past 30 days Advance Directives: Advance Directive: Advance Directive/DNRno Advance Directive Information Givenpatient/family declined Falls Risk: Persaud Fall Screen: History of falling (immediate or previous)no (0) Secondary Diagnosisyes (15) Intravenous Therapy/ Heparin/Saline Lockyes (20) Gait/Transferringnormal/ bedrest/wheelchair (0) Ambulatory Aidsnone/bedrest/nurse assist (0) Mental Statusoriented to own ability (0) Score: Low risk (<25). Moderate risk (25-44). High risk (>44).35 Persaud InterventionsMODERATE INTERVENTIONS: *Low Interventions Plus: * falls risk band/sticker applied to patient, *yellow non-skid footwear, *instruct to call for assistance before getting out of bed, *bed/chair/bedside commode/toilet alarms, *sensory devices/ambulatory aides available and in reach, *medications reviewed for potential side effects and care planning., strongly recommended: gait belts with ambulation Learning Assessment (Patient): Learning Assessment (Patient): Patient is Able to be Assessed for Learningyes Factors Influencing Readiness to Learninterest in learning Factors that Impact Ability to Learnnone Devices/Methods Used to Communicateglasses Learning Preferencesverbal instruction Cultural Considerationsnone Developmental Considerationsnone Voodoo Considerationsnone Learning Assessment (Other Learner): Other learner availableno Depression/Suicide: Depression Screen: During the past month, have you often been bothered by feeling down, depressed or hopelessno During the past month, have you often had little interest or pleasure in doing thingsno Have you had any thoughts of harming anyone elseno [place] Suicide: Risk Screen Not Applicable/Able to Answerable to be screened In the Past Month: Have you wished you were or could go to sleep and not wake upno In the Past Month: Have you had any actual thoughts of killing yourselfno Lifetime: Have you ever done, started to do, or prepared to do anything to end your lifeno [place] Suicide Risknegative Family Violence: Abuse Screen: Are you or have you been threatened or abused physically, emotionally, or sexually by anyoneno Has anyone ever threatened to hurt your family or your petsno Do you feel UNSAFE going back to the place where you are livingno Do you feel anyone has exploited or taken advantage of you financially or of your personal propertyno Clinical assessment: Are there any apparent signs of injuries/behaviors that could be related to abuse/neglectno Electronic Signatures: Henrietta Ambriz (RN) (Signed 08-Mar-2022 21:34) Authored: Allergies, Patient Verification, Travel History, Advance Directives, Persaud Fall Screen, Learning Assessment (Patient), Learning Assessment (Other Learner), Depression/Suicide, Family Violence Last Updated: 08-Mar-2022 21:34 by Henrietta Ambriz (RN) Normal [facility] TOTAL PROTEIN, URINE SPOTon 03-08-2022 CREATININE,URINE 30.0 mg/dL Normal 20.0 - 320.0 [facility] Comment on above: Performed By: #### C MP #### [place] [id number] T. PROTEIN/CREAT RATIO 0.30 mg/mg Creat High 0.00 - 0.17 [facility] Comment on above: Performed By: #### C MP #### [address] [address] TOTAL PROT,URINE SPOT 9 mg/dL Normal 5 - 24 [facility] Comment on above: Performed By: #### C MP #### [address] [address] Total Protein, Urine Spoton 03-08-2022 Creatinine (U) [Mass/Vol] 30.0 mg/dL See Below [facility] [place] [address] [employer] Work Phone: [phone] Comment on above: Reference Range: 20. 0 - 320.0 Protein (U) [Mass/Vol] 9 mg/dL 5 - 24 [facility] [address] [employer] Work Phone: [phone] Protein/Creatinine (U) [Ratio] 0.30 {mg/mg_Creat} above high threshold See Below [facility] [address] [employer] Work Phone: Comment on above: Reference Range: 0.0 0 - 0.17 Triage Note - OB v4on 2021 Triage Note - OB v4 Triage: General Info: Time of Arrival on [id number] Patient arrived viaambulatory Arrived Fromphysician office Acuity Level5 Modified Acuity Level5 Chief Complainth/a Spoken Language PreferredEnglish (1) Weight in kg87.4 kilogram(s) Weight in hez218.6 pound(s) Weight Methodactual (measured) Scale Typestanding Height in feet4 feet Height in .98 inch(es) Height in cm149.8 centimeter(s) Height Methodstated BMI (kg/m2)38.948 square meter Home Meds have been Reviewed and Verified with Patient/Familyyes Info: Gravida4 Term Deliveries1 Deliveries1 Abortions1 Living Children2 Patient stated [id number] Calculation of EGA based on patient stated EDD31.3 Trimester Care Initiatedfirst Current Risksanemia Previous live (any gestational age)yes All Previous /Delivery Complicationspreterm delivery, labor Substance: Smoking Statuslight user (uses <10 cig/day, OR <0.5 ppd, OR 1 can/pouch loose leaf tobacco per week, OR <0.5 vape pods per day) Tobacco Cessation Education (provide if tobacco use within the last 12 mos) patient declined Alcohol Usedenies Drug Usedenies Drug 2 Usedenies Disposition/Disch: Dispositiondischarged from facility, home with own care Patient Meets Criteria for Home Blood Pressure Monitorno Admission/Observation/Di scharge/Transfer Date/[id number]-Fpi-6737 15:50 Discharged Accompanied Bysignificant other/partner Discharge Modeambulatory Transportation Methodprivate car Travel History: Travel or ExposureNO travel to International locations in the past 30 days Additional Information: Information Review: Allergies have been Reviewed and Verified with Patient/Familyyes Allergy, Intolerance, Adverse Event: Allergies: Singulair: Drug, Other, Active Latuda: Drug, Other, Active Latex: Latex, Swelling/Edema, Rash, Active Electronic Signatures: Yoselin Sifuentes) (Signed 09-Mar-2022 16:19) Authored: Disposition/Disch Marcela Polanco) (Signed 08-Mar-2022 15:29) Authored: General Info, Info, Substance, Disposition/Disch, Travel History, Additional Information Last Updated: 09-Mar-2022 16:19 by Yoselin Sifuentes (RN) References: 1. Data Referenced From Triage Note - OB v4 05-Mar-2022 20:17 Normal [facility] URIC ACIDon 03-08-2022 Urate [Mass/Vol] 7.0 mg/dL High 2.3 - 6.7 [facility] Comment on above: Result Comment: Elda puncture immediately after or during the administration of Metamizole may lead to falsely low results. Testing should be performed immediately prior to Metamizole dosing. Performed By: #### U ALAN ####[place] [address] [place] [address] Uric Acid, Serumon Urate [Mass/Vol] 7.0 mg/dL above high threshold 2.3 - 6.7 [facility] [place] [address] [employer] Work Phone: Comment on above: Venipuncture immedia tely after or during the administration of Metamizole may lead to falsely low results. Testing should be performed immediately prior to Metamizole dosing. Daily Progress Note - OB-Tri ageon 03-05-2022 Daily Progress Note - OB-Triage Current Stage: Stage: Triage OB Dating: EDC/EGA: Final [id number] EGA31 Subjective Data: Antepartum: Vaginal Bleeding: No Discharge/Loss of Fluid: No Movement: Good Antepartum: Presents complaining of contractions for several hours. Denies any bowel or bladder problems. Denies any vaginal bleeding. Objective Information: Objective Information: T PRBPMAPSpO2 [id number]% Date/Time03/05 20: 20: 20: 20: 20: 20:17 Range(37C - 37C ) (88 - 88 ) (16 - 16 ) (130 - 130 )/ (81 - 81 ) (96 - 96 ) (98% - 98% ) Highest temp of 37 C was recorded at 03/05 20:17 Physical Exam: Obstetric: No contractions on the monitor. Vaginal exam per nurse reveals cervix to be closed. Testing: NST Interpretation - Baby A: InterpretationReactive (2 15x15 accels) Assessment and Plan: Assessment: 1. Intrauterine at 31 weeks gestation 2. Reactive NST 3. Probable musculoskeletal abdominal discomfort Patient follow-up in the office as previously scheduled. Electronic Signatures: Feliz Giordano) (Signed 06-Mar-2022 09:41) Authored: Current Stage, OB Dating, Subjective Data, Objective Data, Testing, Assessment and Plan, Note Completion Last Updated: 06-Mar-2022 09:41 by Feliz Giordano) [facility] Risk Screen - OB Triageon Risk Screen - OB Triage Allergies: Allergies: Allergies: Singulair: Other Latuda: Other Latex: Swelling/Edema, Rash Patient Verification: Patient Verification: New W ID Band Applied in my Departmentyes Patient Identity Verified Bypatient ID Band FULL Name, include Middle, spelling matches patient's ID used for verificationyes ID Band Matches Patient ID used for Verficationyes ID Band MRN Matches EMR MRNyes Travel History: Travel History: COVID-19 Screening Completedno exposure or symptoms Travel or Exposure Past 30 DaysNO travel to International locations in the past 30 days Advance Directives: Advance Directive: Advance Directive/DNRno Advance Directive Information Givenpatient/family declined Falls Risk: Persaud Fall Screen: History of falling (immediate or previous)no (0) Secondary Diagnosisno (0) Intravenous Therapy/ Heparin/Saline Lockno (0) Gait/Transferringnormal/ bedrest/wheelchair (0) Ambulatory Aidsnone/bedrest/nurse assist (0) Mental Statusoriented to own ability (0) Score: Low risk (<25). Moderate risk (25-44). High risk (>44).0 Persaud InterventionsLOW INTERVENTIONS: *patient oriented to surroundings and call system, * patient/family falls education completed and documented, *patients fall status communicated during bedside handoff, *whiteboard updated, *mode of toileting discussed with patient, *bed in low position with brakes locked, *call light in reach, * non-skid footwear Learning Assessment (Patient): Learning Assessment (Patient): Patient is Able to be Assessed for Learningyes Factors Influencing Readiness to Learninterest in learning Factors that Impact Ability to Learnnone Devices/Methods Used to Communicateglasses Learning Preferencesindividual instruction; skill demonstration Cultural Considerationsnone Developmental Considerationsnone Voodoo Considerationsnone Learning Assessment (Other Learner): Other learner availableno Depression/Suicide: Depression Screen: During the past month, have you often been bothered by feeling down, depressed or hopelessno During the past month, have you often had little interest or pleasure in doing thingsno Have you had any thoughts of harming anyone elseno [place] Suicide: Risk Screen Not Applicable/Able to Answerable to be screened In the Past Month: Have you wished you were or could go to sleep and not wake upno In the Past Month: Have you had any actual thoughts of killing yourselfno Lifetime: Have you ever done, started to do, or prepared to do anything to end your lifeno [place] Suicide Risknegative Family Violence: Abuse Screen: Are you or have you been threatened or abused physically, emotionally, or sexually by anyoneno Do you feel UNSAFE going back to the place where you are livingno Clinical assessment: Are there any apparent signs of injuries/behaviors that could be related to abuse/neglectno Electronic Signatures: Henrietta Ambriz (CONCHITA) (Signed 05-Mar-2022 20:17) Authored: Allergies, Patient Verification, Travel History, Advance Directives, Persaud Fall Screen, Learning Assessment (Patient), Learning Assessment (Other Learner), Depression/Suicide, Family Violence Last Updated: 05-Mar-2022 20:17 by Henrietta Ambriz (CONCHITA) [facility] Triage Note - OB v4on 2021 Triage Note - OB v4 Triage: General Info: Time of Arrival on [id number] 20:06 Acuity Level3 Time Acuity Level [id number] 20:16 Chief ComplaintContractions Spoken Language PreferredEnglish Weight in kg87.9 kilogram(s) Weight in ahb537.7 pound(s) Weight Methodactual (measured) Scale Typestanding Height in feet4 feet Height in .98 inch(es) Height in cm149.8 centimeter(s) Height Methodstated BMI (kg/m2)39.171 square meter Home Meds have been Reviewed and Verified with Patient/Familyyes Info: Gravida4 Term Deliveries1 Deliveries1 Abortions1 Living Children2 Patient stated [id number] Calculation of EGA based on patient stated EDD31 Trimester Care Initiatedfirst Current Risksanemia Previous live (any gestational age)yes All Previous /Delivery Complicationspreterm delivery, labor Substance: Smoking Statuslight user (uses <10 cig/day, OR <0.5 ppd, OR 1 can/pouch loose leaf tobacco per week, OR <0.5 vape pods per day) Tobacco Cessation Education (provide if tobacco use within the last 12 mos) patient declined Alcohol Usedenies Drug Usedenies Drug 2 Usedenies Disposition/Disch: Dispositionplaced in an observation care level Patient Meets Criteria for Home Blood Pressure Monitorno Admission/Observation/Di scharge/Transfer Date/Cnhp44-Ypv-1368 20:40 Discharged Accompanied Byspouse Discharge Modeambulatory Transportation Methodprivate car Travel History: Travel or ExposureNO travel to International locations in the past 30 days Additional Information: Information Review: Allergies have been Reviewed and Verified with Patient/Familyyes Allergy, Intolerance, Adverse Event: Allergies: Singulair: Drug, Other, Active Latuda: Drug, Other, Active Latex: Latex, Swelling/Edema, Rash, Active Electronic Signatures: Henrietta Ambriz (CONCHITA) (Signed 05-Mar-2022 20:45) Authored: General Info, Info, Substance, Disposition/Disch, Travel History, Additional Information Last Updated: 05-Mar-2022 20:45 by Henrietta Ambriz (CONCHITA) [facility] Risk Screen - OB Triageon Risk Screen - OB Triage Allergies: Allergies: Allergies: Singulair: Other Latuda: Other Latex: Swelling/Edema, Rash Patient Verification: Patient Verification: New W ID Band Applied in my Departmentyes Patient Identity Verified Bypatient ID Band FULL Name, include Middle, spelling matches patient's ID used for verificationyes ID Band Matches Patient ID used for Verficationyes ID Band MRN Matches EMR MRNyes Travel History: Travel History: COVID-19 Screening Completedno exposure or symptoms Travel or Exposure Past 30 DaysNO travel to International locations in the past 30 days Advance Directives: Advance Directive: Advance Directive/DNRno Advance Directive Information Givenpatient/family declined Falls Risk: Persaud Fall Screen: History of falling (immediate or previous)no (0) Secondary Diagnosisno (0) Intravenous Therapy/ Heparin/Saline Lockno (0) Gait/Transferringnormal/ bedrest/wheelchair (0) Ambulatory Aidsnone/bedrest/nurse assist (0) Mental Statusoriented to own ability (0) Score: Low risk (<25). Moderate risk (25-44). High risk (>44).0 Persaud InterventionsLOW INTERVENTIONS: *patient oriented to surroundings and call system, * patient/family falls education completed and documented, *patients fall status communicated during bedside handoff, *whiteboard updated, *mode of toileting discussed with patient, *bed in low position with brakes locked, *call light in reach, * non-skid footwear Learning Assessment (Patient): Learning Assessment (Patient): Patient is Able to be Assessed for Learningyes Factors Influencing Readiness to Learnfatigue; pain Factors that Impact Ability to Learnnone Devices/Methods Used to Communicatenone Learning Preferencesskill demonstration; verbal instruction; written material Cultural Considerationsnone Developmental Considerationsnone Voodoo Considerationsnone Learning Assessment (Other Learner): Other learner availableno Depression/Suicide: Depression Screen: During the past month, have you often been bothered by feeling down, depressed or hopelessno During the past month, have you often had little interest or pleasure in doing thingsno Have you had any thoughts of harming anyone elseno [place] Suicide: Risk Screen Not Applicable/Able to Answerable to be screened In the Past Month: Have you wished you were or could go to sleep and not wake upno In the Past Month: Have you had any actual thoughts of killing yourselfno Lifetime: Have you ever done, started to do, or prepared to do anything to end your lifeno [place] Suicide Risknegative Family Violence: Abuse Screen: Are you or have you been threatened or abused physically, emotionally, or sexually by anyoneno Do you feel UNSAFE going back to the place where you are livingno Clinical assessment: Are there any apparent signs of injuries/behaviors that could be related to abuse/neglectno Electronic Signatures: Alyssa Carlson) (Signed 20-Feb-2022 23:29) Authored: Allergies, Patient Verification, Travel History, Advance Directives, Persaud Fall Screen, Learning Assessment (Patient), Learning Assessment (Other Learner), Depression/Suicide, Family Violence Last Updated: 20-Feb-2022 23:29 by Alyssa Carlson (CONCHITA) [facility] Triage Note - OB v4on 2021 Triage Note - OB v4 Triage: General Info: [facility] Acuity Level3 Time Acuity Level Ypsemzjf57-Hor-3206 22:48 Chief Complaintpain with urination and back pain Weight in kg86.9 kilogram(s) Weight in mpc531.5 pound(s) Weight Methodactual (measured) Scale Typestanding Home Meds have been Reviewed and Verified with Patient/Familyyes Info: Gravida4 Term Deliveries1 Deliveries1 Abortions1 Living Children2 Patient stated [id number] Calculation of EGA based on patient stated EDD29.1 Records availableyes Trimester Care Initiatedfirst Current Riskspreterm labor Previous live (any gestational age)yes All Previous /Delivery Complicationspreeclampsi a, delivery Substance: Smoking Statuslight user (uses <10 cig/day, OR <0.5 ppd, OR 1 can/pouch loose leaf tobacco per week, OR <0.5 vape pods per day) Tobacco Cessation Education (provide if tobacco use within the last 12 mos) patient declined Alcohol Usedenies Drug Usedenies Disposition/Disch: Dispositiondischarged from facility, home with own care Patient Meets Criteria for Home Blood Pressure Monitorno Admission/Observation/Di scharge/Transfer Date/[id number] 01:16 Discharged Accompanied Byfamily member Travel History: Travel or ExposureNO travel to International locations in the past 30 days Additional Information: Information Review: Allergies have been Reviewed and Verified with Patient/Familyyes Allergy, Intolerance, Adverse Event: Allergies: Singulair: Drug, Other, Active Latuda: Drug, Other, Active Latex: Latex, Swelling/Edema, Rash, Active Electronic Signatures: Alyssa Carlson (CONCHITA) (Signed 21-Feb-2022 01:46) Authored: General Info, Info, Substance, Disposition/Disch, Travel History, Additional Information Last Updated: 21-Feb-2022 01:46 by Alyssa Carlson) [facility] UA MICROSCOPICon 02-21-2022 BACTERIA 1+ /HPF Abnormal [facility] Comment on above: Performed By: #### U [place]IC ####[place] [address] RBC 1 /HPF Normal 0-5 [facility] Comment on above: Performed By: #### U AMIC ####[place] [address] SQUAMOUS EPITH. CELLS 6 /HPF Normal [facility] Comment on above: Performed By: #### U AMIC ####[place] [address] WBC 10 /HPF Abnormal 0-5 [facility] Comment on above: Performed By: #### U AMIC ####[place] [address] URINALYSISon 02-21-2022 Appearance (U) CLEAR Normal CLEAR [facility] Comment on above: Performed By: #### U A ####[place] [address] Bilirubin Ql (U) Negative Normal NEGATIVE [facility] Comment on above: Performed By: #### U A ####[place] [address] Color (U) Straw Normal STRAW,YELLOW [facility] Comment on above: Performed By: #### U A ####[place] [address] Glucose Ql (U) Negative Normal NEGATIVE [facility] Comment on above: Performed By: #### U A ####[place] [address] Hemoglobin Ql (U) Negative Normal NEGATIVE [facility] Comment on above: Performed By: #### U A ####[place] [address] Ketones Ql (U) Negative Normal NEGATIVE [facility] Comment on above: Performed By: #### U A ####[place] [address] Leukocyte esterase Test strip Ql (U) MODERATE(2+) Abnormal NEGATIVE [facility] Comment on above: Performed By: #### U A ####[address] [address] Nitrite Ql (U) Negative Normal NEGATIVE [facility] Comment on above: Performed By: #### U A ####[address] [address] pH (U) 7.0 [pH] Normal 5.0 - 8.0 [facility] Comment on above: Performed By: #### U A ####[address] [address] Protein Ql (U) Negative Normal NEGATIVE [facility] Comment on above: Performed By: #### U A ####[address] [address] Specific gravity (U) [Rel density] 1.003 Low 1.005 - 1.035 [facility] Comment on above: Performed By: #### U A ####[address] [address] Urobilinogen (U) [Mass/Vol] mg/dL Normal 0.0 - 1.9 [facility] Comment on above: Performed By: #### U A ####[address] [address] URINE CULTURE,BACTERIALon URINE CULTURE,BACTERIAL PATIENT: ROHAN MCCARTNEY LOCATION: [facility]#: [id number] : 89 AGE: SEX: F ORDERED BY: DARNELL ODELL SOURCE: URINE COLLECTED: 02/20/22 23:18 ANTIBIOTICS AT LU.: RECEIVED : 02/21/22 12:01 SITE: R E S U L T S URINE CULTURE,BACTERIAL FINAL 02/22/22 08:38 NO SIGNIFICANT GROWTH. Normal [facility] Comment on above: Performed By: #### U [facility] ####[id number] [place] [address] Cult, Urineon 02-20-2022 Bacteria identified Cx Nom (U) [facility] [address] [employer] Work Phone: Urinalysison 02-20-2022 Color (U) Straw See Below [facility] [address] [employer] Work Phone: [phone] Comment on above: Reference Range: STR AW,YELLOW Glucose Ql (U) Negative NEGATIVE [facility] [address] [employer] Work Phone: [phone] Ketones Ql (U) Negative NEGATIVE [facility] [address] [employer] Work Phone: [phone] Leukocyte esterase Test strip Ql (U) MODERATE(2+) Abnormal NEGATIVE [facility] [place] [address] [employer] Work Phone: [phone] pH (U) 7.0 [pH] 5.0 - 8.0 [facility] Work Phone: [phone] Protein (U) [Mass/Vol] Negative NEGATIVE [facility] Work Phone: [phone] RBC (U) [#/Vol] Negative NEGATIVE [facility] Work Phone: [phone] Specific gravity (U) [Rel density] 1.003 1 below low threshold See Below [facility] Work Phone: [phone] Comment on above: Reference Range: 1.0 05 - 1.035 Urinalysis Negative NEGATIVE [facility] [address] [employer] Work Phone: [phone] Urinalysis <2.0 0.0 - 1.9 [facility] Work Phone: [phone] Urinalysis CLEAR CLEAR [facility] Work Phone: [phone] Urinalysis, Microscopicon Urinalysis, Microscopic 1+ Abnormal [facility] [address] [employer] Work Phone: [phone] Urinalysis, Microscopic 6 {/HPF} [facility] Work Phone: [phone] Urinalysis, Microscopic 1 {/HPF} 0-5 [facility] Work Phone: [phone] Urinalysis, Microscopic 10 {/HPF} Abnormal 0-5 [facility] Work Phone: Cult, Urineon 01-27-2022 Bacteria identified Cx Nom (U) [facility] [address] Work Phone: URINE CULTURE,BACTERIALon URINE CULTURE,BACTERIAL PATIENT: ROHAN MCCARTNEY [place] [facility] [id number] : 89 AGE: SEX: F ORDERED BY: DARNELL ODELL SOURCE: URINE COLLECTED: 01/27/22 14:54 ANTIBIOTICS AT LU.: RECEIVED : 01/28/22 01:03 SITE: Clean Catch/Voided R E S U L T S URINE CULTURE,BACTERIAL FINAL 01/29/22 07:35 NO SIGNIFICANT GROWTH. Normal [facility] Comment on above: Performed By: #### U RINC #### [facility] [address] [place] [address] Radiologyon 01-10-2022 US Pelvis transvaginal Normal [facility] [address] Work Phone: TRANS VAG PREG UTERUSon 12-22 TRANS VAG PREG UTERUS Patient Name: ROHAN MCCARTNEY STUDY: TRANS VAG PREG UTERUS; 01/10/2022 11:20 am INDICATION: h/o ptl, need CL @18week and @20 week with anatomy O09.899: History of delivery, currently O09.92: Encounter for supervision of high risk in second trimester, antepartum Z3A.20: 20 weeks gestation of . COMPARISON: None. ACCESSION NUMBER(S): [id number] ORDERING CLINICIAN: DARNELL ODELL TECHNIQUE: Realtime transabdominal sonographic evaluation of the gravid uterus was performed. FINDINGS: Cervical length is 4.0-4.3 cm. The heart rate is 144 beats per minute. Cephalic presentation. IMPRESSION: Cervical length is 4.0-4.3 cm. The heart rate is 144 beats per minute. Cephalic presentation. Electronically signed by: LISSETH WESTBROOK MD Normal [facility] No Panel Informationon 12-23 Please click on the link to view the study images Normal [facility] [address] Work Phone: Normal [facility] [address] Work Phone: Radiologyon 12-23-2021 US Pelvis transvaginal Please click on the link to view the study images Normal [facility] [address] Work Phone: [phone] US Pelvis transvaginal Normal [facility] [address] Work Phone: TRANS VAG PREG UTERUSon 06- TRANS VAG PREG UTERUS Patient Name: ROHAN MCCARTNEY STUDY: TRANS VAG PREG UTERUS; US OB COMPLETE 12/23/2021 2:49 pm; 12/23/2021 2:30 pm INDICATION: Cervical length O09.899: History of delivery, currently O09.92: Encounter for supervision of high risk in second trimester, antepartum Z3A.20: 20 weeks gestation of ; h/o ptl, need CL @18week and @20 week with anatomy O09.899: History of delivery, currently E66.9: Obesity (BMI 30-39.9) Z3A.16: 16 weeks gestation of . COMPARISON: Ultrasound dated 12/08/2021 ACCESSION NUMBER(S): [id number]; [id number] ORDERING CLINICIAN: DARNELL ODELL TECHNIQUE: Routine ultrasound of the pelvis was performed. Evaluation of the female pelvis was performed by transabdominal and subsequent transvaginal technique. FINDINGS: There is a single live intrauterine gestation in variable position. BPD 47mm, 20 weeks, 1 days HC 180mm, 20 weeks, 3 days AC 152mm, 20 weeks, 3 days FL 34mm, 20 weeks, 5 days This results in a composite gestational age of 20 weeks, 3 days, + / -10 days. The estimated date of delivery by ultrasound is 05/09/2022. By dates the fetus should be 20 weeks, 5 days, which is concordant with the ultrasound dating. There is an estimated weight of 360 g + / -54 g (35th percentile). heart rate measures 153 beats per minute. Anatomy: HEART (FOUR-CHAMBER): Seen THREE-VESSEL CORD: Seen UMBILICAL CORD INSERTION: Seen BLADDER: Seen STOMACH: Seen SPINE: Seen KIDNEYS: Seen DIAPHRAGM: Seen LATERAL VENTRICLE: Seen The placenta is in anterior position. No evidence of placenta previa is seen. The amniotic fluid volume is within normal limits. Maternal anatomy: The cervix is closed, measuring at up to 5.0 cm in length. IMPRESSION: Single live intrauterine gestation corresponding to 20 weeks, 3 days, + / -10 days. No gross anatomic abnormality is identified. Recommend continued routine follow-up imaging evaluation. Electronically signed by: CHRISTIE RENNER MD [facility] Radiologyon 12-08-2021 Pelvis transvaginal Normal [facility] [address] [employer] Work Phone: TRANS VAG PREG UTERUSon 11-20 TRANS VAG PREG UTERUS Patient Name: ROHAN MCCARTNEY STUDY: TRANS VAG PREG UTERUS; 12/08/2021 12:43 pm INDICATION: h/o ptl, need CL @18week and @20 week with anatomy EDC: 05/07/22 O09.899: History of delivery, currently E66.9: Obesity (BMI 30-39.9) Z3A.16: 16 weeks gestation of . COMPARISON: Previous exam is from 11/25/2021. ACCESSION NUMBER(S): [id number] ORDERING CLINICIAN: DARNELL ODELL TECHNIQUE: Endovaginal imaging of the cervix was performed. FINDINGS: Maternal cervical length is 4.2 cm. This compares to 4.6 cm previously. The internal cervical os is closed. There is no fluid in the cervical canal. There is an anterior placenta with no previa. Breech orientation of fetus. IMPRESSION: Maternal cervical length is 4.2 cm. The cervix is closed. Electronically signed by: MURALI BALDWIN MD [facility] Radiologyon 11-25-2021 US Pelvis transvaginal Normal [facility] [address] [employer] Work Phone: TRANS VAG PREG UTERUSon TRANS VAG PREG UTERUS Patient Name: ROHAN MCCARTNEY STUDY: TRANS VAG PREG UTERUS; ; 11/25/2021 10:55 am INDICATION: h/o labor O09.899: History of delivery, currently Z3A.12: 12 weeks gestation of Z34.81: Multigravida in first trimester. COMPARISON: None. ACCESSION NUMBER(S): [id number] ORDERING CLINICIAN: DARNELL ODELL TECHNIQUE: Limited transvaginal sonographic evaluation was performed for cervical length evaluation only. FINDINGS: The cervix appears closed with an approximate length of 4.5 cm. Note is made of fetus which appears to be in breech presentation although evaluation was not performed at this time. A heart rate of 148 beats per minute was demonstrated. IMPRESSION: Cervix appears closed with approximate length of 4.5 cm. Limited visualization of fetus which appears to be in breech presentation. Electronically signed by: MARIUM RUIZ MD [facility] + CHLAMYDIA BY AMPLIFIED DETECTIONon 10-29-2021 CHLAMYDIA TRACH.,AMPLIFIED Negative Normal Negative [facility] Comment on above: Result Comment: The APTIMA Combo 2 assay is FDA-approved for Chlamydia trachomatis and Neisseria gonorrhoeae testing on female endocervical and vaginal swabs, ThinPrep liquid pap samples, male urine samples and urethral swabs. Performance characteristics for Chlamydia trachomatis and Neisseria gonorrhoeae testing on specific rwf-ULR-mgdmsdqd sample types (female urine samples) have been validated by [facility]. This laboratory is certified by CLIA to perform high complexity testing. Samples from all other sites are not validated for this method. Performed By: #### [facility] #### [facility] [address] [place] [address] N.GONORRHEA,AMPLIFIE D Negative Normal Negative [facility] Comment on above: Result Comment: The APTIMA Combo 2 assay is FDA-approved for Chlamydia trachomatis and Neisseria gonorrhoeae testing on female endocervical and vaginal swabs, ThinPrep liquid pap samples, male urine samples and urethral swabs. Performance characteristics for Chlamydia trachomatis and Neisseria gonorrhoeae testing on specific bch-PVY-gfhcvjej sample types (female urine samples) have been validated by [facility]. This laboratory is certified by CLIA to perform high complexity testing. Samples from all other sites are not validated for this method. Performed By: #### [facility] #### [facility] [address] [place] [address] HEPATITIS B SURFACE AGon HEP.B SURFACE AG Non-Reactive Normal NONREACTIVE [facility] Comment on above: Result Comment: Biot in interference may cause falsely decreased results. Patients taking a Biotin dose of up to 5 mg/day should refrain from taking Biotin for 24 hours before sample collection. Providers may contact their local laboratory for further information. Performed By: #### M G #### [address] [address] HEPATITIS C ABon 10-29-2021 HEPATITIS C AB Non-Reactive Normal NONREACTIVE [facility] [place] Comment on above: Result Comment: Resu lts from patients taking biotin supplements or receiving high-dose biotin therapy should be interpreted with caution due to possible interference with this test. Providers may contact their local laboratory for further information. Performed By: #### M G #### [address] [address] HIV 1/2 ANTIGEN/ANTIBODY SCR EEN WITH REFLEX TO CONFIRMATIONon 10-29-2021 HIV 1/2 AG/AB SCREEN Non-Reactive Normal NONREACTIVE [facility] Comment on above: Result Comment: HIV Ag/Ab screen is performed using the Siemens [employer] HIV Ag/Ab Combo assay which detects the presence of HIV p24 antigen as well as antibodies to HIV-1 (Group M and O) and HIV-2. . No laboratory evidence of HIV infection. If acute HIV infection is suspected, consider testing for HIV RNA by PCR (viral load). Performed By: #### H IV #### [facility] [address] [place] [address] RUBELLA IGG ABon 10-29-2021 RUBELLA IGG AB Positive Normal [facility] Comment on above: Result Comment: INTE RPRETATIVE COMMENT NEGATIVE: No IgG antibodies specific to Rubella detected. It is likely that the patient has not had a previous exposure to Rubella through infection or vaccination. Alternatively, the patient may have been exposed to Rubella but a failure to respond may indicate immunodeficiency. EQUIVOCAL:Equivocal results; obtain additional sample for retesting. POSITIVE: IgG antibody to Rubella detected. This may indicate that the patient was exposed to Rubella through infection or vaccination. The interpretation of serological tests should take into account the immunological status of the patient. Test results for patients, including immunocompromised patients, neonates, and pediatric patients, reflect their capacity to respond immunologically to the virus as well as their exposure to the pathogen. Patients treated with IVIG may demonstrate altered results in serological assays. Performed By: #### R UBIG #### [facility] [address] [place] [address] SYPHILIS SCREENING WITH REFL EXon 10-29-2021 SYPHILIS TOTAL AB Non-Reactive Normal NONREACTIVE [facility] Comment on above: Result Comment: No s ignificant level of Treponema pallidum antibody detected. Repeat testing in 2 to 4 weeks may be considered if early infection or incubating syphilis infection is suspected. Performed By: #### S YPH[place] #### [place] [address] [place], [place] [id number] CBC ANEMIA PANEL WITH REFLEX ,PREGNANCYon 10-28-2021 Erythrocyte distribution width (RBC) [Ratio] 13.3 % Normal 11.5 - 14.5 [facility] Comment on above: Performed By: #### M G #### [address] [address] Hematocrit (Bld) [Volume fraction] 38.3 % Normal 36.0 - 46.0 [facility] Comment on above: Performed By: #### M G #### [address] [address] Hemoglobin (Bld) [Mass/Vol] 13.6 g/dL Normal 12.0 - 16.0 [facility] Comment on above: Performed By: #### M G #### [address] [address] MCHC (RBC) [Mass/Vol] 35.4 g/dL Normal 32.0 - 36.0 [facility] Comment on above: Performed By: #### M G #### [address] [address] MCV (RBC) [Entitic vol] 87 fL Normal 80 - 100 [facility] Comment on above: Performed By: #### M G #### [address] [address] Platelets (Bld) [#/Vol] 243 10*3/uL Normal 150 - 450 [facility] Comment on above: Performed By: #### M G #### [address] [address] RBC 4.42 x10E12/L Normal 4.00 - 5.20 [facility] Comment on above: Performed By: #### M G #### [address] [address] REFLEX ADDED, ANEMIA PANEL NONE Normal [facility] Comment on above: Performed By: #### M G #### [address] [address] WBC (Bld) [#/Vol] 7.9 10*3/uL Normal 4.4 - 11.3 [facility] [place] Comment on above: Performed By: #### M G #### [address] [address] COMPREHENSIVE PANELon 2021 Albumin [Mass/Vol] 4.1 g/dL Normal 3.4 - 5.0 [facility] [place] Comment on above: Performed By: #### C MP #### [address] [address] ALP [Catalytic activity/Vol] 54 U/L Normal 33 - 110 [facility] Comment on above: Performed By: #### C MP #### [address] [address] ALT [Catalytic activity/Vol] 11 U/L Normal 7 - 45 [facility] Comment on above: Result Comment: Kimberly ents treated with Sulfasalazine may generate falsely decreased results for ALT. Performed By: #### C MP #### [address] [address] Anion gap [Moles/Vol] 11 mmol/L Normal 10 - 20 [facility] Comment on above: Performed By: #### C MP #### [address] [address] AST [Catalytic activity/Vol] 10 U/L Normal 9 - 39 [facility] Comment on above: Performed By: #### C MP #### [address] [address] Bilirubin [Mass/Vol] 0.5 mg/dL Normal 0.0 - 1.2 [facility] Comment on above: Performed By: #### C MP #### [address] [address] Calcium [Mass/Vol] 9.0 mg/dL Normal 8.6 - 10.3 [facility] [place] Comment on above: Performed By: #### C MP #### [address] [address] Chloride [Moles/Vol] 106 mmol/L Normal 98 - 107 [facility] Comment on above: Performed By: #### C MP #### [address] [address] Creatinine [Mass/Vol] 0.56 mg/dL Normal 0.50 - 1.05 [facility] Comment on above: Performed By: #### C MP #### [address] [address] eGFR FEMALE >90 Normal >90 [facility] Comment on above: Result Comment: CALC ULATIONS OF ESTIMATED GFR ARE PERFORMED USING THE 2020 CKD-EPI STUDY REFIT EQUATION WITHOUT THE RACE VARIABLE FOR THE IDMS-TRACEABLE CREATININE METHODS. https://jasn.asnjournals.org/content/early//ASN.2822304 988 Performed By: #### C MP #### [address] [address] Glucose [Mass/Vol] 87 mg/dL Normal 74 - 99 [facility] [place] Comment on above: Performed By: #### C MP #### [address] [address] HCO3 (Bld) [Moles/Vol] 22 mmol/L Normal 21 - 32 [facility] Comment on above: Performed By: #### C MP #### [address] [address] Potassium [Moles/Vol] 3.7 mmol/L Normal 3.5 - 5.3 [facility] Comment on above: Performed By: #### C MP #### [address] [address] Protein [Mass/Vol] 6.9 g/dL Normal 6.4 - 8.2 [facility] [place] Comment on above: Performed By: #### C MP #### [address] [address] Sodium [Moles/Vol] 135 mmol/L Low 136 - 145 [facility] [place] Comment on above: Performed By: #### C MP #### [address] [address] Urea nitrogen [Mass/Vol] 8 mg/dL Normal 6 - 23 [facility] Comment on above: Performed By: #### C MP #### [address] [address] Cult, Urineon 10-28-2021 Bacteria identified Cx Nom (U) [facility] [address] Work Phone: GC + CHLAMYDIA BY AMPLIFIED DETECTIONon 10-28-2021 Lab Specimen Source Urine Normal [facility] Comment on above: Performed By: #### G [facility] #### [facility] [address] [place] [address] GC + Chlamydia By Amplified Detectionon 10-28-2021 C. trachomatis rRNA BRANDI+probe Ql (Unsp spec) Negative Negative [facility] [address] Work Phone: Comment on above: The APTIMA Combo 2 a ssay is FDA-approved for Chlamydia trachomatis and Neisseria gonorrhoeae testing on female endocervical and vaginal swabs, ThinPrep liquid pap samples, male urine samples and urethral swabs. Performance characteristics for Chlamydia trachomatis and Neisseria gonorrhoeae testing on specific crm-VDA-yfjbqhrs sample types (female urine samples) have been validated by [facility]. This laboratory is certified by CLIA to perform high complexity testing. Samples from all other sites are not validated for this method. N. gonorrhoeae rRNA BRANDI+probe Ql (Unsp spec) Negative Negative [facility] [address] Work Phone: Comment on above: SOURCE: Urine The AP RAZIA Combo 2 assay is FDA-approved for Chlamydia trachomatis and Neisseria gonorrhoeae testing on female endocervical and vaginal swabs, ThinPrep liquid pap samples, male urine samples and urethral swabs. Performance characteristics for Chlamydia trachomatis and Neisseria gonorrhoeae testing on specific urm-HBX-zytdwnfe sample types (female urine samples) have been validated by [facility]. This laboratory is certified by CLIA to perform high complexity testing. Samples from all other sites are not validated for this method. HEMOGLOBIN A1Con 10-28-2021 Glucose [Mass/Vol] 85 mg/dL Normal [facility] [place] Comment on above: Performed By: #### C MP #### [address] [address] HbA1c (Bld) [Mass fraction] 4.6 % Normal [facility] Comment on above: Result Comment: Diag nosis of Diabetes-Adults Non-Diabetic: < or = 5.6% Increased risk for developing diabetes: 5.7-6.4% Diagnostic of diabetes: > or = 6.5% . Monitoring of Diabetes Age (y) Therapeutic Goal (%) Adults: >18 <7.0 Pediatrics: 13-18 <7.5 7-12 <8.0 0- 6 7.5-8.5 [employer]. Diabetes Care 33(S1), Jul 2009. Performed By: #### C MP #### [address] [address] HIV 1/2 ANTIGEN/ANTIBODY SCR EEN WITH REFLEX TO CONFIRMATIONon 10-28-2021 Lab Specimen Source Normal [facility] Comment on above: Performed By: #### H IV #### [facility] [address] [place] [address] Performed By: #### M G #### [address] [address] HIV 1+2 Ab Qn (S) Non-Reactive See Below [facility] [address] Work Phone: Comment on above: SOURCE: Reference Ra nge: NONREACTIVE HIV Ag/Ab screen is performed using the Siemens [employer] HIV Ag/Ab Combo assay which detects the presence of HIV p24 antigen as well as antibodies to HIV-1 (Group M and O) and HIV-2..No laboratory evidence of HIV infection. If acute HIV infection is suspected, consider testing for HIV RNA by PCR (viral load). Hemoglobin A1Con 10-28-2021 Glucose [Mass/Vol] 85 mg/dL [facility] [address] [employer] Work Phone: [phone] HbA1c (Bld) [Mass fraction] 4.6 % [facility] [address] [employer] Work Phone: [phone] Comment on above: Diagnosis of Diabete s-Adults Non-Diabetic: < or = 5.6% Increased risk for developing diabetes: 5.7-6.4% Diagnostic of diabetes: > or = 6.5%. Monitoring of Diabetes Age (y) Therapeutic Goal (%) Adults: >18 <7.0 Pediatrics: 13-18 <7.5 7-12 <8.0 0- 6 7.5-8.5 [employer]. Diabetes Care 33(S1), Jul 2009. Hepatitis B Surface Antigeno n 10-28-2021 Hepatitis B Surface Antigen Non-Reactive See Below [facility] [address] [employer] Work Phone: [phone] Comment on above: SOURCE: Reference Ra nge: NONREACTIVE Biotin interference may cause falsely decreased results. Patients taking a Biotin dose of up to 5 mg/day should refrain from taking Biotin for 24 hours before sample collection. Providers may contact their local laboratory for further information. SOURCE: Reference Ra nge: NONREACTIVE Results from patients taking biotin supplements or receiving high-dose biotin therapy should be interpreted with caution due to possible interference with this test. Providers may contact their local laboratory for further information. Laboratory - Blood bankon ABO group Nom (Bld) [facility] [address] [employer] Work Phone: [phone] Blood group antibody screen Ql Negative [facility] [address] [employer] Work Phone: [phone] Rh immune globulin screen (Bld) [Interp] Positive [facility] [address] [employer] Work Phone: [phone] ABO group Nom (Bld) Canceled [facility] [address] [employer] Work Phone: [phone] Blood group antibody screen Ql Canceled [facility] [place] Work Phone: [phone] Rh immune globulin screen (Bld) [Interp] Canceled [facility] [place] Work Phone: [phone] Laboratory - Chemistry and C hemistry - challengeon 10-28-2021 Albumin BCP dye [Mass/Vol] 4.1 g/dL 3.4 - 5.0 [facility] [place] Work Phone: [phone] ALP [Catalytic activity/Vol] 54 U/L 33 - 110 [facility] [place] Work Phone: [phone] ALT With P-5'-P [Catalytic activity/Vol] 11 U/L 7 - 45 [facility] [place] Work Phone: [phone] Comment on above: Patients treated wit h Sulfasalazine may generate falsely decreased results for ALT. Anion gap [Moles/Vol] 11 mmol/L 10 - 20 [facility] [place] Work Phone: [phone] AST With P-5'-P [Catalytic activity/Vol] 10 U/L 9 - 39 [facility] [place] Work Phone: [phone] Bilirubin [Mass/Vol] 0.5 mg/dL 0.0 - 1.2 [facility] [place] Work Phone: [phone] Calcium [Mass/Vol] 9.0 mg/dL 8.6 - 10.3 [facility] [place] Work Phone: [phone] Chloride [Moles/Vol] 106 mmol/L 98 - 107 [facility] [place] Work Phone: [phone] CO2 [Moles/Vol] 22 mmol/L 21 - 32 [facility] [place] Work Phone: [phone] Creatinine [Mass/Vol] 0.56 mg/dL See Below [facility] [place] Work Phone: [phone] Comment on above: Reference Range: 0.5 0 - 1.05 Glucose [Mass/Vol] 87 mg/dL 74 - 99 [facility] [place] [address] [employer] Work Phone: [phone] Potassium [Moles/Vol] 3.7 mmol/L 3.5 - 5.3 [facility] [place] Work Phone: [phone] Protein [Mass/Vol] 6.9 g/dL 6.4 - 8.2 [facility] [place] Work Phone: [phone] Sodium [Moles/Vol] 135 mmol/L below low threshold 136 - 145 [facility] [place] Work Phone: [phone] Urea nitrogen [Mass/Vol] 8 mg/dL 6 - 23 [facility] [place] Work Phone: [phone] Laboratory - Cytologyon Cytology report Cyto stain.thin prep Doc (Cvx/Vag) [facility] [place] Work Phone: [phone] Laboratory - Hematology and Cell countson 10-28-2021 Erythrocyte distribution width (RBC) [Ratio] 13.3 % See Below [employer] [place] Work Phone: [phone] Comment on above: Reference Range: 11. 5 - 14.5 Hematocrit (Bld) [Volume fraction] 38.3 % See Below [employer] [place] Work Phone: [phone] Comment on above: Reference Range: 36. 0 - 46.0 Hemoglobin (Bld) [Mass/Vol] 13.6 g/dL See Below [employer] [place] Work Phone: [phone] Comment on above: Reference Range: 12. 0 - 16.0 MCHC (RBC) [Mass/Vol] 35.4 g/dL See Below [employer] [place] [address] [employer] Work Phone: [phone] Comment on above: Reference Range: 32. 0 - 36.0 MCV (RBC) [Entitic vol] 87 fL 80 - 100 [facility] [place] Work Phone: [phone] Platelets (Bld) [#/Vol] 243 10*3/uL 150 - 450 [facility] [place] [address] [employer] Work Phone: [phone] RBC (Bld) [#/Vol] 4.42 {x10E12/L} See Below [facility] [place] [address] [employer] Work Phone: [phone] Comment on above: Reference Range: 4.0 0 - 5.20 WBC (Bld) [#/Vol] 7.9 10*3/uL 4.4 - 11.3 [facility] [place] [address] [employer] Work Phone: [phone] Panel Informationon 10-28 >90 >90 [facility] [place] Work Phone: [phone] Comment on above: CALCULATIONS OF ZOE MATED GFR ARE PERFORMED USING THE 2020 CKD-EPI STUDY REFIT EQUATION WITHOUT THE RACE VARIABLE FOR THE IDMS-TRACEABLE CREATININE METHODS.https://jasn.asnjournals.org/content/early/ASN .3623179666 NONE [facility] [place] Work Phone: Rubella IgG Antibodyon 10-28 Rubella virus IgG IA Ql Positive [facility] Work Phone: [phone] Comment on above: INTERPRETATIVE COMME NT NEGATIVE: No IgG antibodies specific to Rubella detected. It is likely that the patient has not had a previous exposure to Rubella through infection or vaccination. Alternatively, the patient may have been exposed to Rubella but a failure to respond may indicate immunodeficiency. EQUIVOCAL:Equivocal results; obtain additional sample for retesting. POSITIVE: IgG antibody to Rubella detected. This may indicate that the patient was exposed to Rubella through infection or vaccination.The interpretation of serological tests should take into accountthe immunological status of the patient. Test results forpatients, including immunocompromised patients, neonates, andpediatric patients, reflect their capacity to respondimmunologically to the virus as well as their exposure to thepathogen. Patients treated with IVIG may demonstrate alteredresults in serological assays. SYPHILIS SCREENING WITH REFL EXon 10-28-2021 T. pallidum IgG+IgM IA Ql (S) Non-Reactive See Below [facility] [place] [address] [employer] Work Phone: Comment on above: Reference Range: NON REACTIVENo significant level of Treponema pallidum antibody detected. Repeat testing in 2 to 4 weeks may be considered if early infection or incubating syphilis infection is suspected. TOTAL PROTEIN, URINE SPOTon 10-28-2021 CREATININE,URINE 250.0 mg/dL Normal 20.0 - 320.0 [facility] Comment on above: Performed By: #### M G #### [place] [address] T. PROTEIN/CREAT RATIO 0.10 mg/mg Creat Normal 0.00 - 0.17 [facility] Comment on above: Performed By: #### M G #### [place] [address] TOTAL PROT,URINE SPOT 26 mg/dL High 5 - 24 [facility] Comment on above: Performed By: #### M G #### [place] [address] TYPE + SCREENon 10-28-2021 ABO TYPE A [facility] Comment on above: Performed By: #### T +S ####[place] [address] RH TYPE Positive [facility] Comment on above: Performed By: #### T +S ####[place] [id number] ABO TYPE Canceled Normal [facility] Comment on above: Order Comment: TEST TYPE + SCREEN WAS CANCELLED, 10/28/2021 14:17 Reordered under new billing number.. Performed By: #### T +S #### [facility] [address] [place] [address] RH TYPE Canceled Normal [facility] Comment on above: Order Comment: TEST TYPE + SCREEN WAS CANCELLED, 10/28/2021 14:17 Reordered under new billing number.. Performed By: #### T +S #### [facility] [address] [place] [address] Total Protein, Urine Spoton 10-28-2021 Creatinine (U) [Mass/Vol] 250.0 mg/dL See Below [facility] [place] [address] [employer] Work Phone: [phone] Comment on above: Reference Range: 20. 0 - 320.0 Protein (U) [Mass/Vol] 26 mg/dL above high threshold 5 - 24 [facility] [place] [address] [employer] Work Phone: [phone] Protein/Creatinine (U) [Ratio] 0.10 {mg/mg_Creat} See Below [facility] [place] [address] [employer] Work Phone: [phone] Comment on above: Reference Range: 0.0 0 - 0.17 URINE CULTURE,BACTERIALon URINE CULTURE,BACTERIAL PATIENT: ROHAN MCCARTNEY [place] [facility] [id number] : 89 AGE: SEX: F ORDERED BY: DARNELL ODELL SOURCE: URINE COLLECTED: 10/28/21 11:24 ANTIBIOTICS AT LU.: RECEIVED : 10/28/21 23:20 SITE: Clean Catch/Voided R E S U L T S URINE CULTURE,BACTERIAL FINAL 10/30/21 07:55 MIXED URETHRAL MONIQUE. Normal [facility] Comment on above: Performed By: #### C MP #### [place] [id number] Risk Screen - OB Triageon Risk Screen - OB Triage Allergies: Allergies: Allergies: Singulair: Other Latuda: Other Latex: Swelling/Edema, Rash Patient Verification: Patient Verification: New W ID Band Applied in my Departmentyes Patient Identity Verified Bypatient ID Band FULL Name, include Middle, spelling matches patient's ID used for verificationyes ID Band Matches Patient ID used for Verficationyes ID Band MRN Matches EMR MRNyes Travel History: Travel History: COVID-19 Screening Completedno exposure or symptoms Travel or Exposure Past 30 DaysNO travel to International locations in the past 30 days Advance Directives: Advance Directive: Advance Directive/DNRno Advance Directive Information Givenpatient/family declined Falls Risk: Persaud Fall Screen: History of falling (immediate or previous)no (0) Secondary Diagnosisno (0) Intravenous Therapy/ Heparin/Saline Lockno (0) Gait/Transferringnormal/ bedrest/wheelchair (0) Ambulatory Aidsnone/bedrest/nurse assist (0) Mental Statusoriented to own ability (0) Score: Low risk (<25). Moderate risk (25-44). High risk (>44).0 Persaud InterventionsLOW INTERVENTIONS: *patient oriented to surroundings and call system, * patient/family falls education completed and documented, *patients fall status communicated during bedside handoff, *whiteboard updated, *mode of toileting discussed with patient, *bed in low position with brakes locked, *call light in reach, * non-skid footwear Learning Assessment (Patient): Learning Assessment (Patient): Patient is Able to be Assessed for Learningyes Factors Influencing Readiness to Learnanxiety Factors that Impact Ability to Learnnone Devices/Methods Used to Communicatenone Learning Preferencesverbal instruction; written material Cultural Considerationsnone Developmental Considerationsnone Voodoo Considerationsnone Learning Assessment (Other Learner): Other learner availableno Depression/Suicide: Depression Screen: During the past month, have you often been bothered by feeling down, depressed or hopelessno During the past month, have you often had little interest or pleasure in doing thingsno Have you had any thoughts of harming anyone elseno [place] Suicide: Risk Screen Not Applicable/Able to Answerable to be screened In the Past Month: Have you wished you were or could go to sleep and not wake upno In the Past Month: Have you had any actual thoughts of killing yourselfno Lifetime: Have you ever done, started to do, or prepared to do anything to end your lifeno [place] Suicide Risknegative Family Violence: Abuse Screen: Are you or have you been threatened or abused physically, emotionally, or sexually by anyoneno Do you feel UNSAFE going back to the place where you are livingno Clinical assessment: Are there any apparent signs of injuries/behaviors that could be related to abuse/neglectno Electronic Signatures: Sheree Fraga (RN) (Signed 18-Oct-2021 16:58) Authored: Allergies, Patient Verification, Travel History, Advance Directives, Persaud Fall Screen, Learning Assessment (Patient), Learning Assessment (Other Learner), Depression/Suicide Katelin Gorman (CONCHITA) (Signed 18-Oct-2021 18:49) Authored: Family Violence Last Updated: 18-Oct-2021 18:49 by Katelin Gorman (RN) [facility] Triage Note - OB v4on 2021 Triage Note - OB v4 Triage: General Info: Time of Arrival on [id number] 16:40 Patient arrived viaambulatory Acuity Level4 Chief Complainthyperemesis Weight in kg85.7 kilogram(s) Weight in gjh992.9 pound(s) Weight Methodactual (measured) Scale Typestanding Home Meds have been Reviewed and Verified with Patient/Familyyes Info: Gravida4 Term Deliveries2 Deliveries0 Abortions1 Living Children2 Patient stated [id number] Calculation of EGA based on patient stated EDD11.2 Records availableyes Trimester Care Initiatedfirst Current Riskshyperemesis Substance: Smoking Statusnever smoker Alcohol Usedenies Drug Usedenies Drug 2 Usedenies Disposition/Disch: Dispositiondischarged from facility, home with own care Patient Meets Criteria for Home Blood Pressure Monitorno Admission/Observation/Di scharge/Transfer Date/[id number] 18:48 Discharge Modeambulatory Transportation Methodprivate car Travel History: Travel or ExposureNO travel to International locations in the past 30 days Additional Information: Information Review: Allergies have been Reviewed and Verified with Patient/Familyyes Allergy, Intolerance, Adverse Event: Allergies: Singulair: Drug, Other, Active Latuda: Drug, Other, Active Latex: Latex, Swelling/Edema, Rash, Active Electronic Signatures: Sheree Fraga (OCNCHITA) (Signed 18-Oct-2021 16:57) Authored: General Info, Info, Substance, Travel History, Additional Information Katelin Gorman (CONCHITA) (Signed 18-Oct-2021 18:48) Authored: Disposition/Disch Last Updated: 18-Oct-2021 18:48 by Katelin Gorman (RN) [facility] HCG, Urine Test on 09-28-2021 HCG ( test) Ql (U) Positive [facility] [place] [address] [employer] Work Phone: LMPon 09-28-2021 Last menstrual period start date 31Jul2021 [facility] [place] [address] [employer] Work Phone: DENTAL LAB TECHNICIAN - Office Visiton 03-0 DENTAL LAB TECHNICIAN - Office Visit Diagnoses/Problems Assessed Positive urine test (V72.42) (Z32.01) Nausea and vomiting in (643.90) (O21.9) Secondary amenorrhea (626.0) (N91.1) Anxiety and depression (300.00,311) (F41.9,F32.A) Orders Renew: Citalopram Hydrobromide 20 MG Oral Tablet (CeleXA); TAKE 1 TABLET BY MOUTH EVERY DAY Start: Ondansetron HCl - 4 MG Oral Tablet; TAKE 1 TABLET Every 6 hours PRN nausea IO HCG, Urine Test; Status:Complete; Done: 28Sep2021 10:00AM Follow-up visit in 1 month Outpatient Follow-up Status: Hold For - Scheduling Requested for: 28Sep2021 Provider Impressions 1) secondary amenorrhea-ultrasound today consistent with last menstrual period. Will use last menstrual period for dating. Lifestyle modification discussed at length. Patient has vitamin 2) nausea and vomiting-patient taken the B6 cannot do the doxylamine as she is up multiple times a night with her other kids. Bruno sent in. Precautions reviewed return 3) anxiety-refilled Celexa for a month so she can get her mental health provider Chief Complaint PT IS HERE TODAY FOR AMENORRHEA. LIKE TO QUIT SMOKING. HAS N/V. MILD CRAMPING, DENIES ANY BLEEDING. HAS BREAST TENDERNESS. LMP: 07/31/2021 History of Present [id number] multigravid presents for secondary menorrhea. Patient was last cycle was normal. Patient notes they were trying to achieve . Patient has lots of nausea some vomiting. Patient extremely anxious given the prior miscarriage. Patient is some cramping but no bleeding. Patient has breast tenderness. Patient notes she needs refills on her Celexa as she has not quite gotten into her mental health provider. Review of Systems Constitutional: No fevers, chills Eye:no vision changes Respiratory: no SOB Cardiovascular: no chest pain Breast: Tenderness Gastrointestinal:+ nausea, vomiting, Genitourinary:no dysuria Gynecology: See HPI Endocrine: No heat or cold intolerance Musculoskeletal: No decreased ROM Skin:No rash Neurologic: No numbness tingling Psychiatric: anxiety, depression All other: all other systems reviewed and negative for complaint Active Problems Problems Anxiety and depression (300.00,311) (F41.9,F32.A) Borderline personality disorder (301.83) (F60.3) History of PCOS (V13.29) (Z87.42) Mild depression (648.44,311) (O99.345,F53.0) Nausea and vomiting in (643.90) (O21.9) Obesity (BMI 30.0-34.9) (278.00) (E66.9) Other irritable bowel syndrome (564.1) (K58.8) Pelvic pain in female (625.9) (R10.2) Positive urine test (V72.42) (Z32.01) PTSD (post-traumatic stress disorder) (309.81) (F43.10) Screening for STD (sexually transmitted disease) (V74.5) (Z11.3) Past Medical History Problems History of pre-eclampsia (V13.29) (Z87.59) Resolved Date: 01 Nov 2020 History of spontaneous (V13.29) (Z87.59) november 2019 History of vaginal delivery (V13.29) 09/13/2018; 34 WEEKS; FEMALE; 5LBS 9OZ 11/2019 SAB 10/09/2020; 38 WEEKS 2 DAYS; MALE; VAGINAL; 6LBS 10OZ History of Menarche (V21.8) AGE 8 Surgical History Problems History of Tonsillectomy with adenoidectomy Family History Mother Family history of cerebrovascular accident (CVA) (V17.1) (Z82.3) Family history of depression (V17.0) (Z81.8) Family history of migraine headaches (V17.2) (Z82.0) Grandmother Family history of diabetes mellitus (V18.0) (Z83.3) Social History Problems Does not use illicit drugs (V49.89) (Z78.9) Never a smoker No alcohol use Sexually active Allergies Medication Latex Gloves Recorded By: Jessie Mason; 11/21/2019 2:11:48 PM [place] 17 Jan 2021; Recorded By: Chandrika La; 01/17/2021 9:53:38 AM Current Meds Medication NameInstruction B-6 50 MG Oral TabletTAKE 1 TABLET TWICE DAILY. CeleXA 20 MG Oral Tablet PNV Plus Multivitamin TABS Vitals Vital Signs Recorded: 28Sep2021 10:07AM Srfafwyi508 Mghwzerqp91 Height4 ft 11 in Ytzmqr103 lb 5.44 oz BMI Yweqtqnhdn82.05 kg/m2 BSA Calculated1.82 [id number] Physical Exam General: None acute distress Eye: Intraocular movements are intact HEENT: Normocephalic Cardiovascular: Regular rate rhythm Respiratory: Lungs are clear to auscultation, respirations are nonlabored Gastrointestinal: Soft nontender nondistended normal bowel sounds Musculoskeletal: Normal range of motion Skin: Warm and dry Neurologic: Alert and oriented x3 Psychiatric: Cooperative appropriate mood and affect. Results/Data IO HCG, Urine [id number] 10:00Darnell Franco MEDLINE LOT: [id number] EXP: 02/19/2023 Test NameResultFlagReference IO Urine hCGPositive Procedure Transvaginal ultrasound shows a single live intrauterine with heart tones 167. [place]-rump length measures 2.07 cm consistent with 8 weeks 5 days with a due date of May 05, 2022 Signatures Electronically signed by : Darnell Odell DO; Sep 28 2021 10:45AM EST (Autho (more content not included)... Normal [facility] No Panel Informationon 02-03 Normal [facility] [place] [facility] [employer] Work Phone: [phone] IO HCG, Urine Test on 01-17-2021 HCG ( test) Ql (U) Negative [facility] [place] [address] [employer] Work Phone: [phone] LMPon 01-17-2021 Last menstrual period start date 01Dec2020 [facility] [place] [address] [employer] Work Phone: [phone] Basic metabolic 2000 panelOr dered By: Luigi Justin on 01-13-2021 Anion gap [Moles/Vol] 13 mmol/L 10 - 20 mmol/L [facility] Calcium [Mass/Vol] 9.3 mg/dL 8.4 - 10. 2 mg/dL [facility] Chloride [Moles/Vol] 105 mmol/L 98 - 10 8 mmol/L [facility] Creatinine [Mass/Vol] 0.83 mg/dL 0.40 - 1.10 [facility] GFR/1.73 sq M.predicted CKD-EPI (S/P/Bld) [Vol rate/Area] 101 >=60 mL/min/1.73 m2 [facility] Glucose [Mass/Vol] 80 mg/dL 65 - 99 mg/dL [facility] HCO3 [Moles/Vol] 25 mmol/L 21 - 32 mmol/L [facility] Interpretation and review of laboratory results Abnormal [facility] Potassium [Moles/Vol] 3.9 mmol/L 3.5 - 5.1 mmol/L [facility] Sodium [Moles/Vol] 139 mmol/L 135 - 145 mmol/L [facility] Urea nitrogen [Mass/Vol] 21 mg/dL 8 - 25 mg/dL [facility] Urea nitrogen/Creatinine [Mass ratio] 25.3 mg/mg High [facility] The eGFR should be u sed for monitoring renal function only and not for medication dosing. [facility] CBC WITH AUTO DIFFERENTIALOr dered By: Luigi Justin on 01-13-2021 Basophils (Bld) [#/Vol] 0.03 10*3/uL [facility] Basophils/100 WBC (Bld) 0.5 % [facility] Eosinophils (Bld) [#/Vol] 0.06 10*3/uL [facility] Eosinophils/100 WBC (Bld) 1.0 % [facility] Erythrocyte distribution width (RBC) [Entitic vol] 13.8 % 11.6 - 14.8 % [facility] Hematocrit (Bld) [Volume fraction] 38.0 % 36.0 - 46.0 % [facility] Hemoglobin (Bld) [Mass/Vol] 12.9 g/dL 12.0 - 16.0 g/dL [facility] Immature granulocytes (Bld) [#/Vol] 0.00 10*3/uL [facility] Immature granulocytes/100 WBC (Bld) 0.00 % [facility] Comment on above: The IG parameter is the percentage of metamyelocytes, myelocytes and promyelocytes. An immature granulocyte count (IG) of 1% or more suggests the possibility of infection, an IG count of 3% is very likely related to an infection. Lymphocytes (Bld) [#/Vol] 1.98 10*3/uL [facility] Lymphocytes/100 WBC (Bld) 32.4 % [facility] MCH (RBC) [Entitic mass] 27.7 pg 26.0 - 34.0 pg [facility] MCHC (RBC) [Mass/Vol] 33.9 g/dL 31.0 - 37.0 g/dL [facility] MCV (RBC) [Entitic vol] 81.5 fL 80.0 - 100.0 fL [facility] Monocytes (Bld) [#/Vol] 0.46 10*3/uL [facility] Monocytes/100 WBC (Bld) 7.5 % [facility] Neutrophils (Bld) [#/Vol] 3.58 10*3/uL [facility] Neutrophils/100 WBC (Bld) 58.6 % [facility] Platelet mean volume (Bld) [Entitic vol] 10.5 fL 9.4 - 12.4 fL [facility] Platelets (Bld) [#/Vol] 269 10*3/uL [facility] RBC (Bld) [#/Vol] 4.66 10*6/uL [facility] ealth WBC (Bld) [#/Vol] 6.11 10*3/uL [facility] Hepatic function 2000 panelO rdered By: Luigi Justin on 01-13-2021 Albumin [Mass/Vol] 4.0 g/dL 3.2 - 5.2 g/dL [facility] ALP [Catalytic activity/Vol] 65 U/L 40 - 140 U/L [facility] ALT [Catalytic activity/Vol] 48 U/L 14 - 65 U/L [facility] AST [Catalytic activity/Vol] 18 U/L 0 - 45 U/L [facility] Bilirubin [Mass/Vol] 0.5 mg/dL 0.0 - 1 .3 mg/dL [facility] Bilirubin.conjugated [Mass/Vol] 0.1 mg/dL 0.0 - 0.4 mg/dL [facility] Protein [Mass/Vol] 7.6 g/dL 6.0 - 8.0 g/dL [facility] LipaseOrdered By: Luigi Justin on 01-13-2021 Lipase [Catalytic activity/Vol] 109 U/L 73 - 393 U/L [facility] No Panel InformationOrdered By: Luigi Justin on 01-13-2021 [facility] Interpretation and review of laboratory results Normal [facility] URINALYSISOrdered By: Luigi Justin on 01-13-2021 Bacteria Auto Ql (U) Few Abnormal None Seen /hpf [facility] Clarity Refractometry automated (U) Clear Clear [facility] Color (U) Yellow Colorless, Yellow [facility] Glucose Auto test strip (U) [Mass/Vol] Negative Negative mg/dL [facility] Ketones (U) [Mass/Vol] Negative Negative mg/dL [facility] Leukocyte esterase Auto test strip Ql (U) Trace Abnormal Negative [facility] pH (U) 6.0 [pH] [facility] Specific gravity (U) [Rel density] 1.025 [facility] UrinalysisOrdered By: Luigi Justin on 01-13-2021 Bilirubin Ql (U) Negative Negative [facility] th Epithelial cells.squamous Auto (Urine sed) [#/Area] 5 High [facility] Hemoglobin Auto test strip Ql (U) Small Abnormal Negative [facility] Interpretation and review of laboratory results Abnormal [facility] Nitrite Auto test strip Ql (U) Negative Negative [facility] Protein (U) [Mass/Vol] Negative Negative mg/dL [facility] RBC Auto (Urine sed) [#/Area] 1 [facility] Urobilinogen (U) [Mass/Vol] mg/dL <2.0 mg/dL [facility] WBC Auto (Urine sed) [#/Area] 5 [facility] Microscopic examinat ion is performed on all urinalysis samples and only positive findings are reported. The test for blood on the chemical analytic portion of urinalysis may also be positive due to hemoglobinuria and myoglobinuria and if red blood cells are present they are quantified by microscopic examination. [facility] COVID-19, MolecularOrdered B y: Vazquez Colunga on 11-29-2020 SARS-CoV-2 (COVID-19) RdRp gene BRANDI+probe Ql (Resp) Not detected Not Detected [facility] Comment on above: This test was perfor med under the FDA's Emergency Use Authorization (EUA). Testing was performed using the Shannon ID NOW COVID-19 assay on the ID NOW platform. This test has not been approved for use in asymptomatic patients and its performance in this patient population has not been evaluated. Negative results do not rule out the presence of SARS-CoV-2/COVID-19. Fact sheets for the EUA can be found at the following links: For Healthcare Providers: https://www.fda.gov/media/154838/download For Patients: https://www.fda.gov/media/995719/download ECG 12-LEADOrdered By: Vazquez Colunga on 11-29-2020 Vazquez Colunga DO 11/29/2020 11:24 PM EKG 12-lead Date/Time: 11/29/2020 10:30 PM Performed by: Vazquez Colunga DO Authorized by: Vazquez Colunga DO BPM: 67 Comments: Normal sinus rhythm at a rate of 67. QT corrected 403. No acute ST segment or T wave change [facility] HCG ( test) Ql (U)O rdered By: [facility] on 11-29-2020 Beta HCG ( test) Ql (U) Dilute urine specimens, as indicated by a low specific gravity (<1.010) may not contain senior outside sales representative levels of hCG. If is still suspected, a serum test or repeat urine test using a first morning urine specimen should be considered. [facility] Interpretation and review of laboratory results Normal [facility] POC Basic Metabolic PanelOrd ered By: [facility] on 11-29-2020 Calcium.ionized (Bld) [Mass/Vol] 4.8 mg/dL 4.5 - 5.3 mg/dL [facility] Chloride [Moles/Vol] 108 mmol/L 98 - 10 8 mmol/L [facility] CO2 [Moles/Vol] 25 mmol/L 21 - 32 mmol/L [facility] Creatinine [Mass/Vol] 1.19 mg/dL High 0.40 - 1.10 [facility] GFR 65 >=60 mL/min/1.73 m2 [facility] Glucose [Mass/Vol] 91 mg/dL 65 - 99 mg/dL [facility] Interpretation and review of laboratory results Abnormal [facility] Potassium [Moles/Vol] 4.0 mmol/L 3.5 - 5.1 mmol/L [facility] Sodium [Moles/Vol] 142 mmol/L 135 - 145 mmol/L [facility] Urea nitrogen [Mass/Vol] 16 mg/dL 8 - 25 mg/dL [facility] POC CBC and DifferentialOrde red By: Vazquez Colunga on 11-29-2020 Basophils (Bld) [#/Vol] 0.04 10*3/uL [facility] Basophils/100 WBC (Bld) 0.6 % [facility] Eosinophils (Bld) [#/Vol] 0.06 10*3/uL [facility] Eosinophils/100 WBC (Bld) 0.9 % [facility] Erythrocyte distribution width (RBC) [Entitic vol] 14.0 % 11.6 - 14.8 % [facility] Hematocrit (Bld) [Volume fraction] 39.3 % 36.0 - 46.0 % [facility] Hemoglobin (Bld) [Mass/Vol] 13.3 g/dL 12.0 - 16.0 g/dL [facility] Immature granulocytes (Bld) [#/Vol] 0.01 10*3/uL [facility] Immature granulocytes/100 WBC (Bld) 0.10 % [facility] Comment on above: The IG parameter is the percentage of metamyelocytes, myelocytes and promyelocytes. An immature granulocyte count (IG) of 1% or more suggests the possibility of infection, an IG count of 3% is very likely related to an infection. Lymphocytes (Bld) [#/Vol] 2.38 10*3/uL [facility] Lymphocytes/100 WBC (Bld) 34.8 % [facility] MCH (RBC) [Entitic mass] 27.8 pg 26.0 - 34.0 pg [facility] MCHC (RBC) [Mass/Vol] 33.8 g/dL 31.0 - 37.0 g/dL [facility] MCV (RBC) [Entitic vol] 82.2 fL 80.0 - 100.0 fL [facility] Monocytes (Bld) [#/Vol] 0.45 10*3/uL [facility] Monocytes/100 WBC (Bld) 6.6 % [facility] Neutrophils (Bld) [#/Vol] 3.90 10*3/uL [facility] Neutrophils/100 WBC (Bld) 57.0 % [facility] Platelet mean volume (Bld) [Entitic vol] 10.8 fL 9.4 - 12.4 fL [facility] Platelets (Bld) [#/Vol] 276 10*3/uL [facility] RBC (Bld) [#/Vol] 4.78 10*6/uL [facility] ealth WBC (Bld) [#/Vol] 6.84 10*3/uL [facility] POC D-dimerOrdered By: [facility]-2020 Fibrin D-dimer DDU (PPP) [Mass/Vol] <100 <350 ng/mL DDU [facility] Interpretation and review of laboratory results Normal [facility] A D-Dimer concentrat ion of <350 ng/mL DDU is considered a low probability for pulmonary embolism (PE) and deep venous thrombosis (DVT). Results of this test should always be interpreted in conjunction with the patient's medical history, clinical presentation, and other findings. Clinical diagnosis should not be based on the results of the D-dimer alone. The above D-dimer cutoff pertains to its use for the exclusion of DVT or PE. The range associated with other clinical conditions (e.g. sepsis) has not been validated for this method. 90% of normal patients are less than 400 ng/ml. [facility] Liver Panel PlusOrdered By: [facility] on 11-29-2020 Albumin [Mass/Vol] 4.0 g/dL 3.2 - 5.2 g/dL [facility] ALP [Catalytic activity/Vol] 63 U/L 40 - 140 U/L [facility] ALT [Catalytic activity/Vol] 38 U/L 0 - 40 U/L [facility] Amylase [Catalytic activity/Vol] 67 U/L 25 - 115 U/L [facility] AST [Catalytic activity/Vol] 27 U/L 0 - 45 U/L [facility] Bilirubin [Mass/Vol] 0.5 mg/dL 0.0 - 1 .3 mg/dL [facility] Gamma glutamyl transferase [Catalytic activity/Vol] 5 U/L Low 7 - 33 U/L [facility] Interpretation and review of laboratory results Abnormal [facility] Protein [Mass/Vol] 7.2 g/dL 6.0 - 8.0 g/dL [facility] POC PT/INROrdered By: [facility] on 11-29-2020 INR Coag (Bld) [Relative time] 1.0 {INR} [facility] Interpretation and review of laboratory results Normal [facility] POC , UrineOrdered By: [facility] on 11-29-2020 HCG ( test) Ql (U) Negative Negative [facility] POC Troponin IOrdered By: [facility] on 11-29-2020 Interpretation and review of laboratory results Normal [facility] Troponin I.cardiac [Mass/Vol] ng/mL <0.05 ng/mL [facility] Urinalysis Dipstick, Aut oOrdered By: [facility] on 11-29-2020 Bilirubin Ql (U) Negative Negative [facility] Glucose Ql (U) Negative Negative mg/dL [facility] Hemoglobin Ql (U) Negative Negative [facility] Interpretation and review of laboratory results Abnormal [facility] Ketones Ql (U) Negative Negative mg/dL [facility] alth Leukocyte esterase Test strip Ql (U) Moderate Abnormal Negative [facility] Nitrite Ql (U) Negative Negative [facility] pH (U) 6.5 [pH] [facility] Protein Ql (U) Negative Negative mg/dL [facility] alth Specific gravity (U) [Rel density] 1.025 [facility] Urobilinogen Qn (U) 0.2 mg/dL <2.0 [facility] SARS-CoV-2 (COVID-19) RdRp g gurpreet BRANDI+probe Ql (Resp)Ordered By: Vazquez Colunga on 11-29-2020 Interpretation and review of laboratory results Normal [facility] XR Chest 1 ViewOrdered By: Mary Colunga on 11-29-2020 No acute cardiopulmo nary process. Workstation ID: [id number] [facility] EXAMINATION: XR CHES T PA/AP 11/29/2020 10:54 pm HISTORY: ORDERING SYSTEM PROVIDED HISTORY: dyspnea, TECHNOLOGIST PROVIDED HISTORY: Illness/Other Reason for exam: dyspnea Cancer History: u Surgery, RadiationHistory: u Encounter Type: Initial Additional signs and symptoms: n ORDERING SYSTEM PROVIDED DIAGNOSIS CODES: COMPARISON: 11/02/2017 FINDINGS: The cardiomediastinal silhouette and pulmonary vasculature are normal. There is no pleural effusion, focal consolidation or pneumothorax. The osseous structures and soft tissues are without acute findings. [facility] Interface, Rad In Fu ji Speechq - 11/29/2020 11:14 PM EDT EXAMINATION: XR CHEST PA/AP 11/29/2020 10:54 pm HISTORY: ORDERING SYSTEM PROVIDED HISTORY: dyspnea, TECHNOLOGIST PROVIDED HISTORY: Illness/Other Reason for exam: dyspnea Cancer History: u Surgery, RadiationHistory: u Encounter Type: Initial Additional signs and symptoms: n ORDERING SYSTEM PROVIDED DIAGNOSIS CODES: COMPARISON: 11/02/2017 FINDINGS: The cardiomediastinal silhouette and pulmonary vasculature are normal. There is no pleural effusion, focal consolidation or pneumothorax. The osseous structures and soft tissues are without acute findings. IMPRESSION: No acute cardiopulmonary process. Workstation ID: [id number] [facility] Rupture of Membranes ( Edison/Darline Only)on 08-28-2020 Interpretation and review of laboratory results Normal [facility] Rupture of Membranes Negative Negative [facility] URINALYSISon 08-28-2020 Bacteria Auto Ql (U) Rare Abnormal None Seen /hpf [facility] Bilirubin Ql (U) Negative Negative [facility] Clarity Refractometry automated (U) Clear Clear [facility] Color (U) Yellow Colorless, Yellow [facility] Epithelial cells.squamous Auto (Urine sed) [#/Area] 2 [facility] Glucose Auto test strip (U) [Mass/Vol] Negative Negative mg/dL [facility] Hemoglobin Auto test strip Ql (U) Negative Negative [facility] Interpretation and review of laboratory results Abnormal [facility] Ketones (U) [Mass/Vol] Negative Negative mg/dL [facility] Leukocyte esterase Auto test strip Ql (U) Trace Abnormal Negative [facility] Nitrite Auto test strip Ql (U) Negative Negative [facility] pH (U) 7.0 [pH] [facility] Protein (U) [Mass/Vol] Negative Negative mg/dL [facility] Specific gravity (U) [Rel density] 1.020 [facility] Urobilinogen (U) [Mass/Vol] <2.0 <2.0 mg/dL [facility] WBC Auto (Urine sed) [#/Area] 1 [facility] Microscopic examinat ion is performed on all urinalysis samples and only positive findings are reported. The test for blood on the chemical analytic portion of urinalysis may also be positive due to hemoglobinuria and myoglobinuria and if red blood cells are present they are quantified by microscopic examination. [facility] COVID-19/Influenza A,B Molec ularon 08-05-2020 Influenza A Not Detected Not Detected [facility] Influenza B Not Detected Not Detected [facility] Interpretation and review of laboratory results Normal [facility] SARS-CoV-2 Not Detected Not Detected [facility] Comment on above: This test was perfor med under the FDA's Emergency Use Authorization (EUA). Testing was performed using the Xpert Xpress SARS-CoV-2 CepTeleverde assay on the GeneXpert Dx platform. This test has not been approved for use in asymptomatic patients and its performance in this patient population has not been evaluated. Negative results do not rule out the presence of SARS-CoV-2/COVID-19. Fact sheets for this EUA can be found at the following links: For Healthcare Providers: https://www.fda.gov/media/874876/download For Patients: https://www.fda.gov/media/221804/download URINALYSISon 08-05-2020 Bacteria Auto Ql (U) Rare Abnormal None Seen /hpf [facility] Bilirubin Ql (U) Negative Negative [facility] th Clarity Refractometry automated (U) Cloudy Abnormal Clear [facility] Color (U) Yellow Colorless, Yellow [facility] Epithelial cells.squamous Auto (Urine sed) [#/Area] 15 High [facility] Glucose Auto test strip (U) [Mass/Vol] Negative Negative mg/dL [facility] Hemoglobin Auto test strip Ql (U) Negative Negative [facility] Interpretation and review of laboratory results Abnormal [facility] Ketones (U) [Mass/Vol] Negative Negative mg/dL [facility] Leukocyte esterase Auto test strip Ql (U) Large Abnormal Negative [facility] Nitrite Auto test strip Ql (U) Negative Negative [facility] pH (U) 7.0 [pH] [facility] Protein (U) [Mass/Vol] Negative Negative mg/dL [facility] Specific gravity (U) [Rel density] 1.015 [facility] Transitional cells Computer assisted (U) [#/Area] 2 High [facility] Urobilinogen (U) [Mass/Vol] <2.0 <2.0 mg/dL [facility] WBC Auto (Urine sed) [#/Area] 50 High [facility] Microscopic examinat ion is performed on all urinalysis samples and only positive findings are reported. The test for blood on the chemical analytic portion of urinalysis may also be positive due to hemoglobinuria and myoglobinuria and if red blood cells are present they are quantified by microscopic examination. 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 female. Her chief complaint(s) include: Cough . Assessment: 1. Acute pharyngitis, unspecified etiology 2. Otalgia, unspecified laterality 3. Acute upper respiratory infection Plan: Rohan was seen today for cough. Diagnoses and all orders for this visit: Acute pharyngitis, unspecified etiology - POCT Rapid Strep A antigen - Strep culture Otalgia, unspecified laterality - Ear Irrigation Acute upper respiratory infection Rapid strep test negative; will send for culture and call family if positive to begin antibiotics. Discussed supportive care and use of as needed antipyretics for pain or fever. Discussed encouraging liquids to stay well hydrated and discussed signs to look for in terms of dehydration and when to be seen. Instructed to follow up with PCP if symptoms worsen/do not improve. Response to Therapy: Subjective: HPI Comments: For the past 3 days, she has had a slight cough and sore throat, and ear pain since this morning. She is currently (is 15 weeks and 1 day). Cough The onset has been acute. The course is worsening. The patient's symptoms have included decreased appetite, decreased fluid intake, difficulty sleeping ( has insomnia with ), congestion, rhinorrhea, sore throat, cough, shortness of breath ( is related to her ), headaches, abdominal pain ( has this at baseline), nausea and vomiting ( is nauseous and vomiting; is currently and has had some morning sickness with this but it seems like her current nausea and vomiting is worse than how her usual morning sickness has been in the past). The patient's symptoms have included no fatigue, no fever, no eye discharge, no left eye redness, no right eye redness, no wheezing, no diarrhea and no rash. (Constipation). The patient has been exposed to sick contacts with common cold(Was around other children who had a cold). The patient's home management has included acetaminophen. The patient's past medical history is positive for allergies. The patient's past medical history is negative for wheezing, asthma and pneumonia. Review of Systems All other systems reviewed and are negative. Objective: Physical Exam Nursing note reviewed. Constitutional: She appears well. She is active. No distress. HENT: Head: Atraumatic. Ears: Right Ear: Tympanic membrane and external ear normal. There is impacted cerumen ( attempted saline irrigation to remove wax but was unable to do so as patient did not tolerate procedure for removal and thus could still not view TM) in the right ear canal. Left Ear: Tympanic membrane and external ear normal. Tympanic membrane is not erythematous. Nose: Nose normal. Mouth/Throat: Mucous membranes are moist. Pharynx erythema ( palatal petechia noted; no purulent drainage ) present. Tonsils are 1+ on the right. Tonsils are 1+ on the left. Eyes: Conjunctivae are normal. Right eyelid exhibits no discharge. Left eyelid exhibits no discharge. Right conjunctiva is not injected. Left conjunctiva is not injected. Cardiovascular: Normal rate and regular rhythm. Heart murmur not heard. Pulmonary/Chest: Effort normal and breath sounds normal. There is normal air entry. No stridor. No respiratory distress. Air movement is not decreased. She has no wheezes. She has no rhonchi. She has no rales. Exhibits no retraction. Abdominal: Soft. Bowel sounds are normal. She exhibits no mass. There is no hepatosplenomegaly. There is no abdominal tenderness. There is no rebound and no guarding. protuberant abdomen consistent with early pregnany Genitourinary: did not examine. Lymphadenopathy: No right anterior and posterior cervical adenopathy present. No left anterior and posterior cervical adenopathy present. Neurological: She is alert. Skin: Capillary refill takes less than 3 seconds. Skin is warm, not pale, not jaundice and not cyanotic. Vitals reviewed: Pulse 100, temperature 36.3 C (97.3 F), temperature source Temporal, resp. rate 20, weight 82.3 kg, last menstrual period 01/15/2020. Last Result POCT Rapid Strep A antigen Collection Time: 04/30/20 7:55 PM Result Value Ref Range Strep A Antigen None Detected None Detected Yellow Solution *Present Red Control Line *Present Clear Background *Present Lot Number [id number] Past Medical History: Diagnosis Date ADHD (attention deficit hyperactivity disorder) Anxiety Bipolar disorder Depression Normal [facility] Strep Cultureon 04-30-2020 Strep Culture Is this specimen maribeth ng sent to an external lab?->No [id number]&Throat swab^^^Throat swab&Throat swab Strep Culture: No Beta hemolytic Streptococci isolated. Source: THRSW Collected: 04/30/20 20:01 Site: Throat swab Received : 04/30/20 23:59 Strep Culture FINAL 05/02/20 09:26 No Beta hemolytic Streptococci isolated. Normal [facility] Comment on above: Performed By: #### S TRE #### [place] [address] CBC WITH AUTO DIFFERENTIALon 04-12-2020 Basophils (Bld) [#/Vol] 0.02 10*3/uL [facility] Basophils/100 WBC (Bld) 0.2 % [facility] Eosinophils (Bld) [#/Vol] 0.06 10*3/uL [facility] Eosinophils/100 WBC (Bld) 0.6 % [facility] Erythrocyte distribution width (RBC) [Entitic vol] 11.8 % 11.6 - 14.8 % [facility] Hematocrit (Bld) [Volume fraction] 36.2 % 36 - 46 % [facility] Hemoglobin (Bld) [Mass/Vol] 12.8 g/dL 12 - 16 g/dL [facility] Immature granulocytes (Bld) [#/Vol] 0.02 10*3/uL [facility] Immature granulocytes/100 WBC (Bld) 0.20 % [facility] Comment on above: The IG parameter is the percentage of metamyelocytes, myelocytes and promyelocytes. An immature granulocyte count (IG) of 1% or more suggests the possibility of infection, an IG count of 3% is very likely related to an infection. Interpretation and review of laboratory results Abnormal [facility] Lymphocytes (Bld) [#/Vol] 2.63 10*3/uL [facility] Lymphocytes/100 WBC (Bld) 24.2 % [facility] MCH (RBC) [Entitic mass] 30.0 pg 26 - 34 pg [facility] MCHC (RBC) [Mass/Vol] 35.4 g/dL 31 - 37 g/dL [facility] MCV (RBC) [Entitic vol] 85.0 fL 80 - 100 fL [facility] Monocytes (Bld) [#/Vol] 0.71 10*3/uL [facility] Monocytes/100 WBC (Bld) 6.5 % [facility] Neutrophils (Bld) [#/Vol] 7.41 10*3/uL High [facility] Neutrophils/100 WBC (Bld) 68.3 % [facility] Platelet mean volume (Bld) [Entitic vol] 10.8 fL 9.4 - 12.4 fL [facility] Platelets (Bld) [#/Vol] 262 10*3/uL [facility] RBC (Bld) [#/Vol] 4.26 10*6/uL [facility] ealth WBC (Bld) [#/Vol] 10.85 10*3/uL [facility] URINALYSISon 04-12-2020 Bacteria Auto Ql (U) Few Abnormal None Seen /hpf [facility] Bilirubin Ql (U) Negative Negative [facility] Clarity Refractometry automated (U) Clear Clear [facility] Color (U) Yellow Colorless, Yellow [facility] Epithelial cells.squamous Auto (Urine sed) [#/Area] 4 [facility] Glucose Auto test strip (U) [Mass/Vol] Negative Negative mg/dL [facility] Hemoglobin Auto test strip Ql (U) Large Abnormal Negative [facility] Interpretation and review of laboratory results Abnormal [facility] Ketones (U) [Mass/Vol] Negative Negative mg/dL [facility] Leukocyte esterase Auto test strip Ql (U) Trace Abnormal Negative [facility] Nitrite Auto test strip Ql (U) Negative Negative [facility] pH (U) 7.0 [pH] [facility] Protein (U) [Mass/Vol] Negative Negative mg/dL [facility] RBC Auto (Urine sed) [#/Area] 10 High [facility] Specific gravity (U) [Rel density] 1.020 [facility] Urobilinogen (U) [Mass/Vol] <2.0 <2.0 mg/dL [facility] WBC Auto (Urine sed) [#/Area] 5 [facility] Microscopic examinat ion is performed on all urinalysis samples and only positive findings are reported. The test for blood on the chemical analytic portion of urinalysis may also be positive due to hemoglobinuria and myoglobinuria and if red blood cells are present they are quantified by microscopic examination. [facility] US OB 1st Trimester Transabd ominal Only with Color Flow Single Fetuson 04-12-2020 EXAMINATION: US OB 1 ST TRIMESTER TRANSABDOMINAL ONLY WITH COLOR FLOW SINGLE FETUS HISTORY: ORDERING SYSTEM PROVIDED HISTORY: vaginal bleeding, 13 weeks , TECHNOLOGIST PROVIDED HISTORY: Illness/Other Reason for exam: Bleeding/spotting Cancer History: u Surgery, RadiationHistory: u Encounter Type: Initial Additional signs and symptoms: None ORDERING SYSTEM PROVIDED DIAGNOSIS CODES: O46.90 Vaginal bleeding in O20.0 Threatened miscarriage COMPARISON: None. TECHNIQUE: Transabdominal ultrasound of the pelvis was performed using Duplex Doppler. FINDINGS: Ultrasound images demonstrate a gravid uterus with a gestational sac with containing a well-defined embryo with a crown-rump length measuring 6.2 cm indicative of a 12 week 5 day gestation. Embryonic cardiac activity is noted at a rate of 153 beats per minute. The placenta is not yet visible due to the early gestational age. The amniotic fluid is unable to be assessed due to the early gestational age. The right ovary measures up to 3.1 x 2.3 x 2.6 cm, and the left ovary measures up to 3.1 x 1.6 x 1.9 cm. Arterial and venous flow are noted in both ovaries. No free fluid is noted within the cul-de-sac. [facility] Interface, Rad In Fu ji Speechq - 04/12/2020 4:11 AM EDT EXAMINATION: US OB 1ST TRIMESTER TRANSABDOMINAL ONLY WITH COLOR FLOW SINGLE FETUS HISTORY: ORDERING SYSTEM PROVIDED HISTORY: vaginal bleeding, 13 weeks , TECHNOLOGIST PROVIDED HISTORY: Illness/Other Reason for exam: Bleeding/spotting Cancer History: u Surgery, RadiationHistory: u Encounter Type: Initial Additional signs and symptoms: None ORDERING SYSTEM PROVIDED DIAGNOSIS CODES: O46.90 Vaginal bleeding in O20.0 Threatened miscarriage COMPARISON: None. TECHNIQUE: Transabdominal ultrasound of the pelvis was performed using Duplex Doppler. FINDINGS: Ultrasound images demonstrate a gravid uterus with a gestational sac with containing a well-defined embryo with a crown-rump length measuring 6.2 cm indicative of a 12 week 5 day gestation. Embryonic cardiac activity is noted at a rate of 153 beats per minute. The placenta is not yet visible due to the early gestational age. The amniotic fluid is unable to be assessed due to the early gestational age. The right ovary measures up to 3.1 x 2.3 x 2.6 cm, and the left ovary measures up to 3.1 x 1.6 x 1.9 cm. Arterial and venous flow are noted in both ovaries. No free fluid is noted within the cul-de-sac. IMPRESSION: 1. Single live intrauterine gestation at approximately 12 weeks 5 days with a heart rate of 153 beats per minute. [facility] Workstation ID: [id number] [facility] 1. Single live intrauterine gestation at approximately 12 weeks 5 days with a heart rate of 153 beats per minute. [facility] Workstation ID: [id number] [facility] hCG, Blood, QUANTitativeon 0 04-12-2020 Beta HCG ( test) Ql (U) Males and non females: <5 mIU/mL Females during : 3-4 weeks 9-130 mIU/mL 4-5 weeks 75-2600 mIU/mL 5-6 weeks 850-20,800 mIU/mL 6-7 weeks 4000-100,200 mIU/mL 7-12 weeks 11,500-289,000 mIU/mL 12-16 weeks 18,300-137,000 mIU/mL 16-29 weeks 1,400-53,000 mIU/mL 29-41 weeks 940-60,000 mIU/[place] [address] m[IU]/mL High [facility] Interpretation and review of laboratory results Abnormal [facility] Cult, Urineon 04-09-2020 Bacteria identified Cx Nom (U) PATIENT: ROHAN MCCARTNEY LOCATION: [facility] BILL#: [id number] : 89 AGE: SEX: F ORDERED BY: DARNELL ODELL SOURCE: URINE COLLECTED: 04/09/20 08:45 ANTIBIOTICS AT LU.: RECEIVED : 04/10/20 02:26 SITE: Unspecified R E S U L T S URINE CULTURE,BACTERIAL FINAL 04/11/20 09:05 NO SIGNIFICANT GROWTH. [facility] [address] [employer] Work Phone: HIV Antigen/Antibody Screeno n 04-09-2020 HIV Antigen/Antibody Screen Non-Reactive See Below [facility] [place] [address] [employer] Work Phone: Comment on above: SOURCE: Reference Ra nge: NONREACTIVE HIV Ag/Ab screen is performed using the [employer] HIV Ag/Ab Combo assay which detects the presence of HIV p24 antigen as well as antibodies to HIV-1 (Group M and O) and HIV-2. SOURCE: Reference Ra nge: NONREACTIVE Results from patients taking biotin supplements or receiving high-dose biotin therapy should be interpreted with caution due to possible interference with this test. Providers may contact their local laboratory for further information. SOURCE: Reference Ra nge: NONREACTIVE Biotin interference may cause falsely decreased results. Patients taking a Biotin dose of up to 5 mg/day should refrain from taking Biotin for 24 hours before sample collection. Providers may contact their local laboratory for further information. Hemoglobin A1Con 04-09-2020 Glucose [Mass/Vol] 82 mg/dL [facility] [address] [employer] Work Phone: HbA1c (Bld) [Mass fraction] 4.5 % [facility] [address] [employer] Work Phone: Comment on above: Diagnosis of Diabete s-Adults Non-Diabetic: < or = 5.6% Increased risk for developing diabetes: 5.7-6.4% Diagnostic of diabetes: > or = 6.5%. Monitoring of Diabetes Age (y) Therapeutic Goal (%) Adults: >18 <7.0 Pediatrics: 13-18 <7.5 7-12 <8.0 0- 6 7.5-8.5 [place]. Diabetes Care 33(S1), Jul 2009. Laboratory - Blood bankon ABO group Nom (Bld) [facility] [place] [address] [employer] Work Phone: [phone] Blood group antibody screen Ql Negative [facility] [address] [employer] Work Phone: [phone] Rh immune globulin screen (Bld) [Interp] Positive [facility] [address] [employer] Work Phone: [phone] Laboratory - Hematology and Cell countson 04-09-2020 Erythrocyte distribution width (RBC) [Ratio] 12.7 % See Below [facility] [address] [employer] Work Phone: [phone] Comment on above: Reference Range: 11. 5 - 14.5 Hematocrit (Bld) [Volume fraction] 38.7 % See Below [facility] [address] [employer] Work Phone: [phone] Comment on above: Reference Range: 36. 0 - 46.0 Hemoglobin (Bld) [Mass/Vol] 13.3 g/dL See Below [facility] [address] [employer] Work Phone: [phone] Comment on above: Reference Range: 12. 0 - 16.0 MCHC (RBC) [Mass/Vol] 34.5 g/dL See Below [facility] [address] [employer] Work Phone: [phone] Comment on above: Reference Range: 32. 0 - 36.0 MCV (RBC) [Entitic vol] 89 fL 80 - 100 [facility] [address] [employer] Work Phone: [phone] Platelets (Bld) [#/Vol] 244 10*3/uL 150 - 450 [facility] [address] Work Phone: [phone] RBC (Bld) [#/Vol] 4.35 {x10E12/L} See Below [facility] [address] [employer] Work Phone: [phone] Comment on above: Reference Range: 4.0 0 - 5.20 WBC (Bld) [#/Vol] 9.7 10*3/uL 4.4 - 11.3 [facility] [address] [employer] Work Phone: No Panel Informationon 04-09 NONE [facility] [address] [employer] Work Phone: Rubella IgG Antibodyon 04-09 Rubella virus IgG IA Ql Positive [facility] [address] [employer] Work Phone: Comment on above: SOURCE: INTERPRETATI VE COMMENT NEGATIVE: No IgG antibodies specific to Rubella detected. It is likely that the patient has not had a previous exposure to Rubella through infection or vaccination. Alternatively, the patient may have been exposed to Rubella but a failure to respond may indicate immunodeficiency. EQUIVOCAL:Equivocal results; obtain additional sample for retesting. POSITIVE: IgG antibody to Rubella detected. This may indicate that the patient was exposed to Rubella through infection or vaccination.The interpretation of serological tests should take into accountthe immunological status of the patient. Test results forpatients, including immunocompromised patients, neonates, andpediatric patients, reflect their capacity to respondimmunologically to the virus as well as their exposure to thepathogen. Patients treated with IVIG may demonstrate alteredresults in serological assays. SYPHILIS SCREENING WITH REFL EXon 04-09-2020 T. pallidum IgG+IgM IA Ql (S) Non-Reactive See Below [facility] [address] [employer] Work Phone: [phone] Comment on above: SOURCE: Reference Ra nge: NONREACTIVENo significant level of Treponema pallidum antibody detected. Repeat testing in 2 to 4 weeks may be considered if early infection or incubating syphilis infection is suspected. POC Basic Metabolic Panelon 03-28-2020 Calcium.ionized (Bld) [Mass/Vol] 4.9 mg/dL 4.5 - 5.3 mg/dL [facility] Chloride [Moles/Vol] 104 mmol/L 98 - 10 8 mmol/L [facility] CO2 [Moles/Vol] 22 mmol/L 21 - 32 mmol/L [facility] ealt Creatinine [Mass/Vol] 0.50 mg/dL 0.40 - 1.10 [facility] GFR/1.73 sq M.predicted MDRD (S/P/Bld) [Vol rate/Area] 140 mL/min/{1.73_m2} >=60 mL/min/1.73 m2 [facility] Glucose [Mass/Vol] 76 mg/dL 65 - 99 mg/dL [facility] Interpretation and review of laboratory results Normal [facility] Potassium [Moles/Vol] 3.7 mmol/L 3.5 - 5.1 mmol/L [facility] Sodium [Moles/Vol] 138 mmol/L 135 - 145 mmol/L [facility] Urea nitrogen [Mass/Vol] 8 mg/dL 8 - 25 mg/dL [facility] POC CBC and Differentialon 0 03-28-2020 Erythrocyte distribution width (RBC) [Entitic vol] 12.5 % 11.6 - 14.8 % [facility] Hematocrit (Bld) [Volume fraction] 38.7 % 36 - 46 % [facility] Hemoglobin (Bld) [Mass/Vol] 13.9 g/dL 12 - 16 g/dL [facility] Lymphocytes (Bld) [#/Vol] 1.7 10*3/uL [facility] Lymphocytes/100 WBC (Bld) 19.0 % [facility] MCH (RBC) [Entitic mass] 31.0 pg 26 - 34 pg [facility] MCHC (RBC) [Mass/Vol] 35.9 g/dL 31 - 37 g/dL [facility] MCV (RBC) [Entitic vol] 86.2 fL 80 - 100 fL [facility] Mixed 5.5 % [facility] Mixed Abs 0.5 K/mcl [facility] Neutrophil Abs 6.6 [facility] Neutrophils/100 WBC (Bld) 75.5 % [facility] Platelet mean volume (Bld) [Entitic vol] 11.4 fL 9.4 - 12.4 fL [facility] Platelets (Bld) [#/Vol] 272 10*3/uL [facility] RBC (Bld) [#/Vol] 4.49 10*6/uL [facility] WBC (Bld) [#/Vol] 8.80 10*3/uL [facility] POC Liver Panel Pluson 03-28 Albumin [Mass/Vol] 3.5 g/dL 3.2 - 5.2 g/dL [facility] ALP [Catalytic activity/Vol] 52 U/L 40 - 140 U/L [facility] ALT [Catalytic activity/Vol] 13 U/L 0 - 40 U/L [facility] Amylase [Catalytic activity/Vol] 57 U/L 25 - 115 U/L [facility] AST [Catalytic activity/Vol] 20 U/L 0 - 45 U/L [facility] Bilirubin [Mass/Vol] 0.9 mg/dL 0 - 1.3 mg/dL [facility] Gamma glutamyl transferase [Catalytic activity/Vol] 7 U/L 7 - 33 U/L [facility] Interpretation and review of laboratory results Normal [facility] Protein [Mass/Vol] 7.4 g/dL 6 - 8 g/dL [facility] alth POC Urinalysis Dipstick, Aut oon 03-28-2020 Bilirubin Ql (U) Negative Negative [facility] th Glucose Ql (U) Negative Negative mg/dL [facility] alth Hemoglobin Ql (U) Trace-intact Abnormal Negative [facility] Interpretation and review of laboratory results Abnormal [facility] Ketones Ql (U) 40 Abnormal Negative mg/dL [facility] alth Leukocyte esterase Test strip Ql (U) Small Abnormal Negative [facility] Nitrite Ql (U) Negative Negative [facility] pH (U) 7.0 [pH] [facility] Protein Ql (U) Trace Abnormal Negative mg/dL [facility] alth Specific gravity (U) [Rel density] 1.025 [facility] Urobilinogen Qn (U) 1.0 mg/dL <2.0 [facility] HCG, Urine Test on 03-12-2020 HCG ( test) Ql (U) Positive [facility] [address] [employer] Work Phone: Comment on above: MEDLINELOT# [id number] 10EXP: [facility]20 [facility] [address].00 MIU/ML Normal [facility] Comment on above: Result Comment: [facility] [place]PRETIVE RANGES: NON FEMALE 0-6 MIU/ML MALE ADULT 0-2 MIU/ML 0-1 WEEK 6-50 MIU/ML 1-2 WEEKS 40-300 MIU/ML 2-3 WEEKS 100-1,000 MIU/ML 3-4 WEEKS 500-6,000 MIU/ML 1-2 MONTHS 5,000-200,000 MIU/ML 2-3 MONTHS 10,000-100,000 MIU/ML 2ND TRIMESTER 3,000-50,000 MIU/ML 3RD TRIMESTER 1,000-50,000 MIU/ML If an hCG level is inconsistent with, or unsupported by, clinical evidence, results should be confirmed by an alternate hCG method. This method may include the qualitative hCG testing of urine. Testing performed at [place] [address] Performed By: #### A CBC, BMPF, BHCG2 #### [place] [address] US OB TRANSVAGINAL/CERVICAL LENGTHon 02-29-2020 US OB TRANSVAGINAL/CERVICA L LENGTH EXAM: US OB TRANSVAGINAL/CERVICAL LENGTH HISTORY: Pelvic cramping, vaginal bleeding, . COMPARISON: Pelvic ultrasound examination dated 11/26/2019. TECHNIQUE: Transvaginal ultrasound of the pelvis was performed using Duplex Doppler. FINDINGS: Ultrasound images demonstrate a gravid uterus with a gestational sac with a mean sac diameter of 1.8 cm, indicative of a 6 weeks 1 day gestation. Within the gestational sac is a well-defined embryo with a crown rump length measuring 0.5 cm indicative of a 6 weeks 1 day gestation. Embryonic cardiac activity is noted at a rate of 149 beats per minute. The placenta is not yet visible due to the early gestational age. The amniotic fluid is unable to be assessed due to the early gestational age. The right ovary measures up to 3.8 x 2.8 x 2.6 cm, and the left ovary measures up to 3.6 x 1.7 x 2.8 cm. There is a small cystic area within the right ovary most likely representing a corpus luteal cyst of . Arterial and venous flow are noted in both ovaries. No free fluid is noted within the cul-de-sac. IMPRESSION: Single live intrauterine gestation at approximately 6 weeks 1 day with a heart rate of 149 bpm. Normal [facility] BMP FASTINGon 02-28-2020 Anion gap [Moles/Vol] 10 mmol/L Normal 8-16 [facility] Comment on above: Performed By: #### A CBC, BMPF, BHCG2 #### [place] [address] Calcium [Mass/Vol] 10.0 mg/dL Normal 8.4-10.2 [facility] Comment on above: Performed By: #### A CBC, BMPF, BHCG2 #### [place] [address] Chloride [Moles/Vol] 105 mmol/L Normal 98-107 [facility] Comment on above: Result Comment: Jayme george note: Triglyceride levels of 600mg/dL or higher may positively bias chloride results by approximately 2.1 mmol Performed By: #### A CBC, BMPF, BHCG2 #### [place] [address] CO2 [Moles/Vol] 23 mmol/L Normal 22-30 [facility] Comment on above: Performed By: #### A CBC, BMPF, BHCG2 #### [place] [address] Creatinine [Mass/Vol] 0.70 mg/dL Normal 0.7-1.2 [facility] Comment on above: Performed By: #### A CBC, BMPF, BHCG2 #### [place] [address] EST. GFR, >60 Normal [facility] Comment on above: Performed By: #### A CBC, BMPF, BHCG2 #### [place] [address] EST. GFR,Non >60 Normal [facility] Comment on above: Performed By: #### A CBC, BMPF, BHCG2 #### [place] [address] GFR/1.73 sq M predicted among non-blacks MDRD (S/P/Bld) [Vol rate/Area] Average GFR for 20-29 years old = 116. Normal [facility] Comment on above: Result Comment: Nutrition Instructor andrade Kidney disease, GFR = <60. Kidney failure, GFR = <15. The GFR estimate is not adjusted for extreme body surface area or acute process, nor has it been validated for women or ethnic groups other than and . Testing performed at [place] [address] Performed By: #### A CBC, BMPF, BHCG2 #### [place] [address] Glucose [Mass/Vol] 102 mg/dL High 70-100 [facility] Comment on above: Result Comment: NORMAL <100 mg/dL PREDIABETES 101-126 mg/dL DIABETES 126 mg/dL or higher Performed By: #### A CBC, BMPF, BHCG2 #### [place] [address] Potassium [Moles/Vol] 4.0 mmol/L Normal 3.5-5.1 [facility] Comment on above: Performed By: #### A CBC, BMPF, BHCG2 #### [place] [address] Sodium [Moles/Vol] 138 mmol/L Normal 137-145 [facility] Comment on above: Performed By: #### A CBC, BMPF, BHCG2 #### [place] [address] Urea nitrogen [Mass/Vol] 9 mg/dL Normal 7-20 [facility] Comment on above: Performed By: #### A CBC, BMPF, BHCG2 #### [place] [address] CBCon 02-28-2020 ABSOLUTE BAS 0.0 10*3/uL Normal 0.0-0.2 [facility] Comment on above: Result Comment: Test ing performed at [place] [address] Performed By: #### A CBC, BMPF, BHCG2 #### [place] [address] ABSOLUTE EOS 0.00 10*3/uL Normal 0.0-0.7 [facility] Comment on above: Performed By: #### A CBC, BMPF, BHCG2 #### [place] [address] ABSOLUTE NEUTROPHIL COUNT 7.6 10*3/uL High 1.4-6.5 [facility] Comment on above: Performed By: #### A CBC, BMPF, BHCG2 #### Testing performed at [address] [address] Basophils/100 WBC (Bld) 0.3 % Normal 0.0-2.0 [facility] Comment on above: Performed By: #### A CBC, BMPF, BHCG2 #### Testing performed at [address] [address] DTYPE AUTO DIFF Normal [facility] Comment on above: Performed By: #### A CBC, BMPF, BHCG2 #### Testing performed at [address] [address] Eosinophils/100 WBC (Bld) 0.4 % Normal 0.0-11.0 [facility] Comment on above: Performed By: #### A CBC, BMPF, BHCG2 #### Testing performed at [address] [address] Lymphocytes (Bld) [#/Vol] 2.10 10*3/uL Normal 1.2-3.4 [facility] Comment on above: Performed By: #### A CBC, BMPF, BHCG2 #### Testing performed at [address] [address] Lymphocytes/100 WBC (Bld) 19.9 % Low 20.0-55.0 [facility] Comment on above: Performed By: #### A CBC, BMPF, BHCG2 #### Testing performed at [address] [address] Monocytes (Bld) [#/Vol] 0.6 10*3/uL Normal 0.0-0.7 [facility] Comment on above: Performed By: #### A CBC, BMPF, BHCG2 #### Testing performed at [address] [address] Monocytes/100 WBC (Bld) 5.8 % Normal 0.0-10.0 [facility] Comment on above: Performed By: #### A CBC, BMPF, BHCG2 #### Testing performed at [place] [id number] Neutrophils/100 WBC (Bld) 73.6 % Normal 37.0-75.0 [facility] Comment on above: Performed By: #### A CBC, BMPF, BHCG2 #### [place] [address] Erythrocyte distribution width (RBC) [Ratio] 12.9 % Normal 11.5-14.5 [facility] Comment on above: Performed By: #### A CBC, BMPF, BHCG2 #### [place] [address] Hematocrit (Bld) [Volume fraction] 41.0 % Normal 36.0-48.0 [facility] Comment on above: Performed By: #### A CBC, BMPF, BHCG2 #### [place] [address] Hemoglobin (Bld) [Mass/Vol] 14.4 g/dL Normal 12.0-16.0 [facility] Comment on above: Performed By: #### A CBC, BMPF, BHCG2 #### [place] [address] MCH (RBC) [Entitic mass] 31.0 pg Normal 26.0-35.0 [facility] Comment on above: Performed By: #### A CBC, BMPF, BHCG2 #### [place] [address] MCHC (RBC) [Mass/Vol] 35.1 g/dL Normal 27.0-37.0 [facility] Comment on above: Performed By: #### A CBC, BMPF, BHCG2 #### Testing performed at [place] [id number] MCV (RBC) [Entitic vol] 88.1 fL Normal 80.0-100.0 [facility] Comment on above: Performed By: #### A CBC, BMPF, BHCG2 #### [place] [address] Platelet mean volume (Bld) [Entitic vol] 9.0 fL Normal 7.4-11.0 [facility] Comment on above: Performed By: #### A CBC, BMPF, BHCG2 #### [place] [address] Platelets (Bld) [#/Vol] 280 10*3/uL Normal 130.0-400.0 [facility] Comment on above: Performed By: #### A CBC, BMPF, BHCG2 #### [place] [address] RBC (Bld) [#/Vol] 4.66 10*6/uL Normal 4.0-5.4 [facility] Comment on above: Performed By: #### A CBC, BMPF, BHCG2 #### [place] [address] WBC (Bld) [#/Vol] 10.3 10*3/uL Normal 3.6-11.0 [facility] Comment on above: Performed By: #### A CBC, BMPF, BHCG2 #### [place] [address] URINE CULTUREon 02-28-2020 Bacteria identified Cx Nom (U) SPECIMEN DESCRIPTION RANDOM URINE UA DIPSTICK LEUKOCYTE POSITIVE * Result Note: NITRITE NEGATIVE * CULTURE NO PATHOGENS ISOLATED * Result Note: Testing performed at [place] [address] * REPORT STATUS 03/01/2020 * Result Note: FINAL * Normal [facility] Comment on above: Performed By: #### C MPF, LIP2, ACBC #### [place] [address] URINE HCG QUALon 02-28-2020 Beta HCG ( test) Ql (U) Positive Normal [facility] Comment on above: Result Comment: Test ing performed at [place] [address] Performed By: #### U HCGT #### Testing performed at [address] [address] URINE MACROSCOPICon 02-28-20 20 Bilirubin Ql (U) Negative Normal NEGATIVE [facility] Comment on above: Performed By: #### U MAC, UMIC #### Testing performed at [address] [address] Clarity (U) CLEAR Normal CLEAR [facility] Comment on above: Performed By: #### U MAC, UMIC #### [place] [address] Color (U) YELLOW Normal YELLOW [facility] Comment on above: Performed By: #### U MAC, UMIC #### [place] [address] Glucose Ql (U) Negative Normal NEGATIVE [facility] Comment on above: Performed By: #### U MAC, UMIC #### [place] [address] pH (U) 7.0 [pH] Normal 5.0-7.0 [facility] Comment on above: Performed By: #### U MAC, UMIC #### [place] [address] Protein (U) [Mass/Vol] Negative Normal NEGATIVE [facility] Comment on above: Performed By: #### U MAC, UMIC #### [place] [address] URINE HEMOGLOBIN MODERATE Abnormal NEGATIVE [facility] Comment on above: Performed By: #### U MAC, UMIC #### Testing performed at [place] [id number] URINE KETONE Negative Normal NEGATIVE [facility] Comment on above: Performed By: #### U MAC, UMIC #### [place] [address] URINE LEUKOTEST SMALL Abnormal NEGATIVE [facility] Comment on above: Result Comment: Test ing performed at [place] [address] Performed By: #### U MAC, UMIC #### [place] [address] URINE NITRATES Negative Normal NEGATIVE [facility] Comment on above: Performed By: #### U MAC, UMIC #### [place] [address] URINE SPEC GRAVITY 1.015 Normal 1.010-1.025 [facility] Comment on above: Performed By: #### U MAC, UMIC #### [place] [address] Urobilinogen Qn (U) 0.2 {Fidencio'U}/dL Normal 0.2-1.0 [facility] Comment on above: Performed By: #### U MAC, UMIC #### [place] [address] URINE MICROSCOPICon 02-28-20 20 Bacteria LM.HPF (Urine sed) [#/Area] Negative Normal NEGATIVE [facility] Comment on above: Performed By: #### U MAC, UMIC #### [place] [address] Casts LM.LPF (Urine sed) [#/Area] NONE Normal NONE [facility] Comment on above: Performed By: #### U MAC, UMIC #### [place] [address] CRYSTAL NONE Normal [facility] Comment on above: Performed By: #### U MAC, UMIC #### [place] [address] Epithelial cells LM.HPF (Urine sed) [#/Area] 1 TO 5 Normal [facility] Comment on above: Performed By: #### U MAC, UMIC #### [place] [address] Mucus Ql (Urine sed) Negative Normal NEGATIVE [facility] Comment on above: Performed By: #### U MAC, UMIC #### [place] [address] RBC (U) [#/Vol] 1 TO 5 Normal NEGATIVE [facility] Comment on above: Performed By: #### U MAC, UMIC #### [place] [address] URINE COMMENT REFLEX CULTURE PER ESTABLISHED CRITERIA. Normal [facility] Comment on above: Result Comment: Test ing performed at [place] [address] Performed By: #### U MAC, UMIC #### [place] [address] WBC (U) [#/Vol] 1 TO 5 Normal NEGATIVE [facility] Comment on above: Performed By: #### U MAC, UMIC #### [place] [address] ABO/Rhon 11-26-2019 ABO and Rh group Nom (Bld) A Positive [facility] CBC WITH AUTO DIFFERENTIALon 11-26-2019 Basophils (Bld) [#/Vol] 0.03 10*3/uL [facility] Basophils/100 WBC (Bld) 0.3 % [facility] Eosinophils (Bld) [#/Vol] 0.04 10*3/uL [facility] Eosinophils/100 WBC (Bld) 0.4 % [facility] Erythrocyte distribution width (RBC) [Entitic vol] 11.8 % 11.6 - 14.8 % [facility] Hematocrit (Bld) [Volume fraction] 38.1 % 36 - 46 % [facility] Hemoglobin (Bld) [Mass/Vol] 13.5 g/dL 12 - 16 g/dL [facility] Immature granulocytes (Bld) [#/Vol] 0.01 10*3/uL [facility] Immature granulocytes/100 WBC (Bld) 0.10 % [facility] Comment on above: The IG parameter is the percentage of metamyelocytes, myelocytes, and promyelocytes. Lymphocytes (Bld) [#/Vol] 2.46 10*3/uL [facility] Lymphocytes/100 WBC (Bld) 24.2 % [facility] MCH (RBC) [Entitic mass] 30.8 pg 26 - 34 pg [facility] MCHC (RBC) [Mass/Vol] 35.4 g/dL 31 - 37 g/dL [facility] MCV (RBC) [Entitic vol] 87.0 fL 80 - 100 fL [facility] Monocytes (Bld) [#/Vol] 0.65 10*3/uL [facility] Monocytes/100 WBC (Bld) 6.4 % [facility] Neutrophils (Bld) [#/Vol] 6.98 10*3/uL [facility] Neutrophils/100 WBC (Bld) 68.6 % [facility] Platelet mean volume (Bld) [Entitic vol] 10.9 fL 9 - 15.5 fL [facility] Platelets (Bld) [#/Vol] 275 10*3/uL [facility] RBC (Bld) [#/Vol] 4.38 10*6/uL [facility] ealth WBC (Bld) [#/Vol] 10.17 10*3/uL [facility] HCG (QUANTITATIVE)on 020 Beta HCG ( test) Ql (U) Males and non females: <5 mIU/mL Females during : 3-4 weeks 9-130 mIU/mL 4-5 weeks 75-2600 mIU/mL 5-6 weeks 850-20,800 mIU/mL 6-7 weeks 4000-100,200 mIU/mL 7-12 weeks 11,500-289,000 mIU/mL 12-16 weeks 18,300-137,000 mIU/mL 16-29 weeks 1,400-53,000 mIU/mL 29-41 weeks 940-60,000 mIU/[place] [address] m[IU]/mL High [facility] Interpretation and review of laboratory results Abnormal [facility] URINALYSISon 11-26-2019 Bacteria Auto Ql (U) Rare Abnormal None Seen /hpf [facility] Bilirubin Ql (U) Negative Negative [facility] th Clarity Refractometry automated (U) Clear Clear [facility] Color (U) Yellow Colorless, Yellow [facility] Epithelial cells.squamous Auto (Urine sed) [#/Area] 12 High [facility] Glucose Auto test strip (U) [Mass/Vol] Negative Negative mg/dL [facility] Hemoglobin Auto test strip Ql (U) Small Abnormal Negative [facility] Interpretation and review of laboratory results Abnormal [facility] Ketones (U) [Mass/Vol] Negative Negative mg/dL [facility] Leukocyte esterase Auto test strip Ql (U) Small Abnormal Negative [facility] Nitrite Auto test strip Ql (U) Negative Negative [facility] pH (U) 7.0 [pH] [facility] Protein (U) [Mass/Vol] Negative Negative mg/dL [facility] Specific gravity (U) [Rel density] 1.020 [facility] Urobilinogen (U) [Mass/Vol] <2.0 <2.0 mg/dL [facility] WBC Auto (Urine sed) [#/Area] 5 [facility] Microscopic examinat ion is performed on all urinalysis samples and only positive findings are reported. The test for blood on the chemical analytic portion of urinalysis may also be positive due to hemoglobinuria and myoglobinuria and if red blood cells are present they are quantified by microscopic examination. [facility] Obstetric 1st Trimester W ith Transvaginal And Transabdominal Single Fetuson 11-26-2019 Interface, Rad In Fu ji Speechq - 11/26/2019 4:51 AM EDT EXAMINATION: US OB 1ST TRIMESTER WITH TRANSVAGINAL AND TRANSABDOMINAL SINGLE FETUS HISTORY: ORDERING SYSTEM PROVIDED HISTORY: 1st trimester pelvic pain starting tonight, eval ectopic, TECHNOLOGIST PROVIDED HISTORY: Illness/Other Reason for exam: PELVIC CRAMPING X 3 HOURS. PT DENIES ANY VAG D/C Cancer History: u Surgery, RadiationHistory: u Encounter Type: Initial Additional signs and symptoms: N ORDERING SYSTEM PROVIDED DIAGNOSIS CODES: O26.891 Abdominal pain during , first trimester R10.9 Abdominal pain during , first trimester COMPARISON: Pelvic ultrasound 10/31/2019 from outside facility. TECHNIQUE: Grayscale, and color Doppler, spectral Doppler and M-mode Doppler ultrasound examination of the pelvis was performed both transabdominally and transvaginally. FINDINGS: TRANSABDOMINAL ULTRASOUND: Single intrauterine . Uterus measures 9.4 x 6.2 x 7.1 cm. Nonvisualization of the ovaries transabdominally due to overlying bowel gas. TRANSVAGINAL ULTRASOUND: Right ovary measures 3.2 x 2.2 x 2.7 cm and is normal in appearance. Normal arterial spectral Doppler waveform is present within the right ovary with resistive index of 0.53. Normal venous spectral Doppler waveform is present within the right ovary. Left ovary measures 2.9 x 1.9 x 2.3 cm and is normal in appearance. Normal arterial spectral Doppler waveform is present within the left ovary with a resistive index of 0.53. Normal venous and spectral Doppler waveform is present within the left ovary. Gestational sac and pole are identified. No cardiac activity is identified. Gestational sac size corresponds to an estimated gestational age of 9 weeks 3 days. [place]-rump length corresponds to an estimated gestational age of 9 weeks 0 days. No subchorionic hemorrhage. IMPRESSION: 1. Single intrauterine . No cardiac activity identified. Findings compatible with intrauterine demise. No subchorionic hemorrhage. 2. Normal appearance of the ovaries. No adnexal mass. No pelvic free fluid. [facility] Work[facility] ID: [id number] [facility] 1. Single intrauteri ne . No cardiac activity identified. Findings compatible with intrauterine demise. No subchorionic hemorrhage. 2. Normal appearance of the ovaries. No adnexal mass. No pelvic free fluid. [facility] Workstation ID: [id number] EXAMINATION: US OB 1 ST TRIMESTER WITH TRANSVAGINAL AND TRANSABDOMINAL SINGLE FETUS HISTORY: ORDERING SYSTEM PROVIDED HISTORY: 1st trimester pelvic pain starting tonight, eval ectopic, TECHNOLOGIST PROVIDED HISTORY: Illness/Other Reason for exam: PELVIC CRAMPING X 3 HOURS. PT DENIES ANY VAG D/C Cancer History: u Surgery, RadiationHistory: u Encounter Type: Initial Additional signs and symptoms: N ORDERING SYSTEM PROVIDED DIAGNOSIS CODES: O26.891 Abdominal pain during , first trimester R10.9 Abdominal pain during , first trimester COMPARISON: Pelvic ultrasound 10/31/2019 from outside facility. TECHNIQUE: Grayscale, and color Doppler, spectral Doppler and M-mode Doppler ultrasound examination of the pelvis was performed both transabdominally and transvaginally. FINDINGS: TRANSABDOMINAL ULTRASOUND: Single intrauterine . Uterus measures 9.4 x 6.2 x 7.1 cm. Nonvisualization of the ovaries transabdominally due to overlying bowel gas. TRANSVAGINAL ULTRASOUND: Right ovary measures 3.2 x 2.2 x 2.7 cm and is normal in appearance. Normal arterial spectral Doppler waveform is present within the right ovary with resistive index of 0.53. Normal venous spectral Doppler waveform is present within the right ovary. Left ovary measures 2.9 x 1.9 x 2.3 cm and is normal in appearance. Normal arterial spectral Doppler waveform is present within the left ovary with a resistive index of 0.53. Normal venous and spectral Doppler waveform is present within the left ovary. Gestational sac and pole are identified. No cardiac activity is identified. Gestational sac size corresponds to an estimated gestational age of 9 weeks 3 days. [place]-rump length corresponds to an estimated gestational age of 9 weeks 0 days. No subchorionic hemorrhage. [facility] Urine Pregnancyon 11-26-2019 HCG ( test) Ql (U) Positive Abnormal Negative [facility] Interpretation and review of laboratory results Abnormal [facility] WET PREPARATIONon 11-26-2019 Clue cells Wet prep Ql (Unsp spec) Possible Clue Cells Seen Abnormal No Clue Cells Seen [facility] Interpretation and review of laboratory results Abnormal [facility] T. vaginalis Wet prep Ql (Genital specimen) No Trichomonas Seen No Trichomonas Seen [facility] WBC Wet prep Ql (Unsp spec) Moderate WBC's Seen Abnormal No WBC's Seen [facility] Yeast Wet prep Ql (Genital specimen) No Yeast Seen No Yeast Seen [facility] Yeast.hyphae Wet prep Ql (Unsp spec) No Yeast with Hyphae Seen No Yeast with Hyphae Seen [facility] POC Basic Metabolic Panelon 09-29-2019 Calcium.ionized (Bld) [Mass/Vol] 4.7 mg/dL 4.5 - 5.3 mg/dL [facility] Chloride [Moles/Vol] 106 mmol/L 98 - 10 8 mmol/L [facility] CO2 [Moles/Vol] 25 mmol/L 21 - 32 mmol/L [facility] ealt Creatinine [Mass/Vol] 0.62 mg/dL 0.40 - 1.10 [facility] GFR/1.73 sq M.predicted MDRD (S/P/Bld) [Vol rate/Area] 130 mL/min/{1.73_m2} >=60 mL/min/1.73 m2 [facility] Glucose [Mass/Vol] 107 mg/dL High 65 - 99 mg/dL [facility] Interpretation and review of laboratory results Abnormal [facility] Potassium [Moles/Vol] 3.8 mmol/L 3.5 - 5.1 mmol/L [facility] Sodium [Moles/Vol] 141 mmol/L 135 - 145 mmol/L [facility] Urea nitrogen [Mass/Vol] 14 mg/dL 8 - 25 mg/dL [facility] POC CBC and Differentialon 0 09-29-2019 Erythrocyte distribution width (RBC) [Entitic vol] 13.3 % 11.6 - 14.8 % [facility] Hematocrit (Bld) [Volume fraction] 44.8 % 36 - 46 % [facility] Hemoglobin (Bld) [Mass/Vol] 15.1 g/dL 12 - 16 g/dL [facility] Interpretation and review of laboratory results Abnormal [facility] Lymphocytes (Bld) [#/Vol] 1.5 10*3/uL [facility] Lymphocytes/100 WBC (Bld) 12.3 % [facility] MCH (RBC) [Entitic mass] 30.0 pg 26 - 34 pg [facility] MCHC (RBC) [Mass/Vol] 33.7 g/dL 31 - 37 g/dL [facility] MCV (RBC) [Entitic vol] 88.9 fL 80 - 100 fL [facility] Mixed 4.3 % [facility] Mixed Abs 0.5 K/mcl [facility] Neutrophil Abs 9.8 High [facility] Neutrophils/100 WBC (Bld) 83.4 % [facility] Platelet mean volume (Bld) [Entitic vol] 12.1 fL 9 - 15.5 fL [facility] Platelets (Bld) [#/Vol] 270 10*3/uL [facility] RBC (Bld) [#/Vol] 5.04 10*6/uL [facility] eah WBC (Bld) [#/Vol] 11.80 10*3/uL [facility] POC Liver Panel Pluson 09-28 Albumin [Mass/Vol] 4.1 g/dL 3.2 - 5.2 g/dL [facility] ALP [Catalytic activity/Vol] 63 U/L 40 - 140 U/L [facility] ALT [Catalytic activity/Vol] 14 U/L 0 - 40 U/L [facility] Amylase [Catalytic activity/Vol] 56 U/L 25 - 115 U/L [facility] AST [Catalytic activity/Vol] 24 U/L 0 - 45 U/L [facility] Bilirubin [Mass/Vol] 0.9 mg/dL 0 - 1.3 mg/dL [facility] Gamma glutamyl transferase [Catalytic activity/Vol] 11 U/L 7 - 33 U/L [facility] Interpretation and review of laboratory results Normal [facility] Protein [Mass/Vol] 7.2 g/dL 6 - 8 g/dL [facility] POC , Urineon 09-28 Beta HCG ( test) Ql (U) Dilute urine specimens, as indicated by a low specific gravity (<1.010) may not contain senior outside sales representative levels of hCG. If is still suspected, a serum test or repeat urine test using a first morning urine specimen should be considered. [facility] HCG ( test) Ql (U) Negative Negative [facility] Interpretation and review of laboratory results Normal [facility] POC Urinalysis Dipstick, Aut oon 09-29-2019 Bilirubin Ql (U) Small Abnormal Negative [facility] th Glucose Ql (U) Negative Negative mg/dL [facility] alth Hemoglobin Ql (U) Small Abnormal Negative [facility] Interpretation and review of laboratory results Abnormal [facility] Ketones Ql (U) Trace Abnormal Negative mg/dL [facility] alth Leukocyte esterase Test strip Ql (U) Moderate Abnormal Negative [facility] Nitrite Ql (U) Negative Negative [facility] pH (U) 6.0 [pH] [facility] Protein Ql (U) 30 Abnormal Negative mg/dL [facility] alth Specific gravity (U) [Rel density] >=1.030 High [facility] Urobilinogen Qn (U) 0.2 mg/dL <2.0 [facility] DRUGS OF ABUSE SCREEN, URINE on 05-02-2019 Amphetamines Ql (U) None Detected None Detected [facility] Comment on above: Urine Amphetamine Cu toff: < 1000 ng/mL = None Detected Barbiturates Screen Ql (U) None Detected None Detected [facility] Comment on above: Urine Barbiturates C utoff: < 200 ng/mL = None Detected Benzodiazepines Ql (U) None Detected None Detected [facility] Comment on above: Urine Benzodiazepine Cutoff: < 200 ng/mL = None Detected Cannabinoids Screen Ql (U) None Detected None Detected [facility] Comment on above: Urine Cannabinoids C utoff: < 50 ng/mL = None Detected Cocaine Ql (U) None Detected None Detected [facility] Comment on above: Urine Cocaine Cutoff : < 300 ng/mL = None Detected Interpretation and review of laboratory results Normal [facility] Methadone Screen Ql (U) None Detected None Detected [facility] Comment on above: Urine Methadone Cuto ff: < 300 ng/mL = None Detected Opiates Screen Ql (U) None Detected None Detected [facility] Comment on above: Urine Opiates Cutoff : < 300 ng/mL = None Detected Oxycodone Ql (U) None Detected None Detected [facility] Comment on above: Urine Oxycodone Cuto ff: < 100 ng/mL = None Detected Screen results shoul d be used for treatment purposes only. [facility] Otheron 05-02-2019 Extra Tube Hold for add-ons. [facility] Comment on above: Auto resulted. CBCon 04-23-2019 ABSOLUTE BAS 0.0 10*3/uL Normal 0.0-0.2 [facility] Comment on above: Result Comment: Test ing performed at [place] [address] Performed By: #### C MPF, LIP2, ACBC #### [place] [address] ABSOLUTE EOS 0.00 10*3/uL Normal 0.0-0.7 [facility] Comment on above: Performed By: #### C MPF, LIP2, ACBC #### [place] [address] ABSOLUTE NEUTROPHIL COUNT 3.0 10*3/uL Normal 1.4-6.5 [facility] Comment on above: Performed By: #### C MPF, LIP2, ACBC #### [place] [address] Basophils/100 WBC (Bld) 0.6 % Normal 0.0-2.0 [facility] Comment on above: Performed By: #### C MPF, LIP2, ACBC #### [place] [address] DTYPE AUTO DIFF Normal [facility] Comment on above: Performed By: #### C MPF, LIP2, ACBC #### [place] [address] Eosinophils/100 WBC (Bld) 0.6 % Normal 0.0-11.0 [facility] Comment on above: Performed By: #### C MPF, LIP2, ACBC #### [place] [address] Lymphocytes (Bld) [#/Vol] 1.50 10*3/uL Normal 1.2-3.4 [facility] Comment on above: Performed By: #### C MPF, LIP2, ACBC #### [place] [address] Lymphocytes/100 WBC (Bld) 29.7 % Normal 20.0-55.0 [facility] Comment on above: Performed By: #### C MPF, LIP2, ACBC #### Testing performed at [address] [address] Monocytes (Bld) [#/Vol] 0.5 10*3/uL Normal 0.0-0.7 [facility] Comment on above: Performed By: #### C MPF, LIP2, ACBC #### Testing performed at [place] [id number] Monocytes/100 WBC (Bld) 10.7 % High 0.0-10.0 [facility] Comment on above: Performed By: #### C MPF, LIP2, ACBC #### Testing performed at [place] [id number] Neutrophils/100 WBC (Bld) 58.4 % Normal 37.0-75.0 [facility] Comment on above: Performed By: #### C MPF, LIP2, ACBC #### Testing performed at [place] [id number] Erythrocyte distribution width (RBC) [Ratio] 13.4 % Normal 11.5-14.5 [facility] Comment on above: Performed By: #### C MPF, LIP2, ACBC #### Testing performed at [place] [id number] Hematocrit (Bld) [Volume fraction] 42.0 % Normal 36.0-48.0 [facility] Comment on above: Performed By: #### C MPF, LIP2, ACBC #### Testing performed at [address] [address] Hemoglobin (Bld) [Mass/Vol] 14.4 g/dL Normal 12.0-16.0 [facility] Comment on above: Performed By: #### C MPF, LIP2, ACBC #### Testing performed at [place] [id number] MCH (RBC) [Entitic mass] 29.9 pg Normal 26.0-35.0 [facility] Comment on above: Performed By: #### C MPF, LIP2, ACBC #### [place] [address] MCHC (RBC) [Mass/Vol] 34.3 g/dL Normal 27.0-37.0 [facility] Comment on above: Performed By: #### C MPF, LIP2, ACBC #### [place] [address] MCV (RBC) [Entitic vol] 87.2 fL Normal 80.0-100.0 [facility] Comment on above: Performed By: #### C MPF, LIP2, ACBC #### [place] [address] Platelet mean volume (Bld) [Entitic vol] 9.6 fL Normal 7.4-11.0 [facility] Comment on above: Performed By: #### C MPF, LIP2, ACBC #### [place] [address] Platelets (Bld) [#/Vol] 281 10*3/uL Normal 130.0-400.0 [facility] Comment on above: Performed By: #### C MPF, LIP2, ACBC #### [place] [address] RBC (Bld) [#/Vol] 4.82 10*6/uL Normal 4.0-5.4 [facility] Comment on above: Performed By: #### C MPF, LIP2, ACBC #### Testing performed at [place] [id number] WBC (Bld) [#/Vol] 5.1 10*3/uL Normal 3.6-11.0 [facility] Comment on above: Performed By: #### C MPF, LIP2, ACBC #### Testing performed at [place] [id number] CMP FASTINGon 04-23-2019 A:G RATIO 1.6 RATIO Normal 1.3-2.2 [facility] Comment on above: Performed By: #### C MPF, LIP2, ACBC #### Testing performed at [place] [id number] Albumin [Mass/Vol] 4.4 G/dl Normal 3.5-5.0 [facility] Comment on above: Performed By: #### C MPF, LIP2, ACBC #### Testing performed at [place] [id number] ALP [Catalytic activity/Vol] 59 U/L Normal 38-126 [facility] Comment on above: Performed By: #### C MPF, LIP2, ACBC #### Testing performed at [place] [id number] ALT [Catalytic activity/Vol] 28 U/L Normal 9-52 [facility] Comment on above: Performed By: #### C MPF, LIP2, ACBC #### [place] [address] AST [Catalytic activity/Vol] 25 U/L Normal 14-36 [facility] Comment on above: Performed By: #### C MPF, LIP2, ACBC #### Testing performed at [place] [id number] Bilirubin [Mass/Vol] 0.5 mg/dL Normal 0.2-1.3 [facility] Comment on above: Performed By: #### C MPF, LIP2, ACBC #### Testing performed at [place] [id number] Calcium [Mass/Vol] 9.6 mg/dL Normal 8.4-10.2 [facility] Comment on above: Performed By: #### C MPF, LIP2, ACBC #### Testing performed at [place] [id number] Chloride [Moles/Vol] 107 mmol/L Normal 98-107 [facility] Comment on above: Result Comment: Jayme george note: Triglyceride levels of 600mg/dL or higher may positively bias chloride results by approximately 2.1 mmol Performed By: #### C MPF, LIP2, ACBC #### [place] [address] CO2 [Moles/Vol] 26 mmol/L Normal 22-30 [facility] Comment on above: Performed By: #### C MPF, LIP2, ACBC #### [place] [address] Creatinine [Mass/Vol] 0.70 mg/dL Normal 0.7-1.2 [facility] Comment on above: Performed By: #### C MPF, LIP2, ACBC #### [place] [address] GFR/1.73 sq M predicted among non-blacks MDRD (S/P/Bld) [Vol rate/Area] Unable to calculate GFR due to inappropriate age/gender/creatinine value. Normal [facility] Comment on above: Result Comment: Test ing performed at [place] [address] Performed By: #### C MPF, LIP2, ACBC #### [place] [address] Glucose [Mass/Vol] 89 mg/dL Normal 70-100 [facility] Comment on above: Result Comment: NORMAL <100 mg/dL PREDIABETES 101-126 mg/dL DIABETES 126 mg/dL or higher Performed By: #### C MPF, LIP2, ACBC #### [place] [address] Potassium [Moles/Vol] 4.4 mmol/L Normal 3.5-5.1 [facility] Comment on above: Performed By: #### C MPF, LIP2, ACBC #### [place] [address] Protein [Mass/Vol] 7.2 g/dL Normal 6.3-8.2 [facility] Comment on above: Performed By: #### C MPF, LIP2, ACBC #### [place] [address] Sodium [Moles/Vol] 139 mmol/L Normal 137-145 [facility] Comment on above: Performed By: #### C MPF, LIP2, ACBC #### Testing performed at [address] [address] Urea nitrogen [Mass/Vol] 17 mg/dL Normal 7-20 [facility] Comment on above: Performed By: #### C MPF, LIP2, ACBC #### Testing performed at [address] [address] LIPID PROFILEon 04-23-2019 Cholesterol [Mass/Vol] 139 mg/dL Normal 107-217 [facility] Comment on above: Performed By: #### C MPF, LIP2, ACBC #### Testing performed at [place] [id number] Cholesterol in HDL [Mass/Vol] 45 mg/dL Normal 33-75 [facility] Comment on above: Performed By: #### C MPF, LIP2, ACBC #### Testing performed at [place] [id number] Cholesterol in LDL [Mass/Vol] 82 mg/dL Normal [facility] Comment on above: Performed By: #### C MPF, LIP2, ACBC #### Testing performed at [place] [id number] Cholesterol in VLDL [Mass/Vol] 12 mg/dL Normal 5.0-25 [facility] Comment on above: Performed By: #### C MPF, LIP2, ACBC #### Testing performed at [address] [address] Cholesterol.total/Ch olesterol in HDL [Mass ratio] 3.09 {ratio} Normal [facility] Comment on above: Result Comment: RISK TOTAL/HDL RATIO MEN WOMEN 1/2 AVERAGE 3.43 3.27 AVERAGE 4.97 4.44 2X AVERAGE 9.55 7.05 3X AVERAGE 23.99 11.04 Testing performed at [place] [address] Performed By: #### C MPF, LIP2, ACBC #### Testing performed at [facility] [address] [place] [address] Triglyceride [Mass/Vol] 61 mg/dL Normal 0-150 [facility] Comment on above: Performed By: #### C MPF, LIP2, ACBC #### Testing performed at [facility] [address] [place] [address] POC , Urineon 02-17 Beta HCG ( test) Ql (U) Dilute urine specimens, as indicated by a low specific gravity (<1.010) may not contain senior outside sales representative levels of hCG. If is still suspected, a serum test or repeat urine test using a first morning urine specimen should be considered. [facility] HCG ( test) Ql (U) Negative Negative [facility] Interpretation and review of laboratory results Normal [facility] POC Rapid Strep Aon 02-18-20 19 Interpretation and review of laboratory results Normal [facility] S. pyogenes Ag Ql (Throat) Negative Negative [facility] Comment on above: All negative Strep A+ tests using this methodology should be confirmed by culture. Please order a Group A Streptococcus Throat Culture ([id number]) and send to lab for testing. POC Urinalysis Dipstick, Aut oon 02-17-2019 Bilirubin Ql (U) Moderate Abnormal Negative [facility] th Glucose Ql (U) Negative Negative mg/dL [place] [facility] Hemoglobin Ql (U) Trace-lysed Abnormal Negative [facility] alth Interpretation and review of laboratory results Abnormal [facility] Ketones Ql (U) 80 Abnormal Negative mg/dL [facility] alth Leukocyte esterase Test strip Ql (U) Large Abnormal Negative [facility] Nitrite Ql (U) Negative Negative [facility] pH (U) 6.5 [pH] [facility] Protein Ql (U) 100 Abnormal Negative mg/dL [facility] alth Specific gravity (U) [Rel density] >=1.030 High [facility] Urobilinogen Qn (U) 1.0 mg/dL <2.0 [facility] ealt XR ANKLE RIGHT 3+ VIEWS (STA NDARD)on 01-12-2019 1. No acute fracture s or dislocations. [facility] Workstation ID: [id number] [facility] EXAMINATION: XR ANKL E RIGHT 3+ VIEWS (STANDARD) 01/12/2019. HISTORY: ORDERING SYSTEM PROVIDED HISTORY: trauma, TECHNOLOGIST PROVIDED HISTORY: Injury/Trauma Reason for exam: lateral pain to right ankle Cancer History: u Surgery, RadiationHistory: u Encounter Type: Initial Mechanism of injury: fell after stepping on lego ORDERING SYSTEM PROVIDED DIAGNOSIS CODES: COMPARISON: None. FINDINGS Three views are provided which demonstrate normally aligned ankle mortise without definite fractures or dislocations. Base of the 5th metatarsal appears intact. No abnormal soft tissue swelling, calcifications or radiopaque foreign bodies. [facility] Interface, Rad In Fu ji Speechq - 01/13/2019 12:00 AM EDT EXAMINATION: XR ANKLE RIGHT 3+ VIEWS (STANDARD) 01/12/2019. HISTORY: ORDERING SYSTEM PROVIDED HISTORY: trauma, TECHNOLOGIST PROVIDED HISTORY: Injury/Trauma Reason for exam: lateral pain to right ankle Cancer History: u Surgery, RadiationHistory: u Encounter Type: Initial Mechanism of injury: fell after stepping on lego ORDERING SYSTEM PROVIDED DIAGNOSIS CODES: COMPARISON: None. FINDINGS Three views are provided which demonstrate normally aligned ankle mortise without definite fractures or dislocations. Base of the 5th metatarsal appears intact. No abnormal soft tissue swelling, calcifications or radiopaque foreign bodies. IMPRESSION: 1. No acute fractures or dislocations. [facility] Workstation ID: [id number] [facility] Rapid Strep Screenon 019 Interpretation and review of laboratory results Normal [facility] Strep A Ag Negative Presumptive Negative for Group A Streptococcus [facility] Hgb and Hcton 09-14-2018 Hematocrit (Bld) [Volume fraction] 27.5 % Low 34.4-44.8 [facility] Comment on above: Performed By: #### C BCDIF, CMET #### Unless otherwise noted, all [place] [address] CLIA: [id number] [employer] Compliance Specialist: Pasha Valles M.D. Hemoglobin (Bld) [Mass/Vol] 9.7 g/dL Low 11.6-15.4 [facility] Comment on above: Performed By: #### C BRITTANY, CMET #### Unless otherwise noted, [place] [address] CLIA: [id number] [employer] Compliance Specialist: Pasha Valles M.D. CBC with Diffon 09-13-2018 Basophils (Bld) [#/Vol] 0.1 K/mcL Normal 0-0.2 [facility] Comment on above: Performed By: #### S TRCUL #### Unless otherwise noted, all testing performed by [place] [address] CLIA: [id number] [employer] Compliance Specialist: Pasha Valles M.D. Basophils/100 WBC (Bld) 0.5 % Normal [facility] Comment on above: Performed By: #### S TRCUL #### Unless otherwise noted, all testing performed by [place] [address] CLIA: [id number] [employer] Compliance Specialist: Pasha Valles M.D. Eosinophils (Bld) [#/Vol] 0.0 K/mcL Normal 0-0.5 [facility] Comment on above: Performed By: #### S TRCUL #### Unless otherwise noted, all testing performed by [place] [address] CLIA: [id number] [employer] Compliance Specialist: Pasha Valles M.D. Eosinophils/100 WBC (Bld) 0.1 % Normal [facility] Comment on above: Performed By: #### S TRCUL #### Unless otherwise noted, all testing performed by [place] [address] CLIA: [id number] [employer] Compliance Specialist: Pasha Valles M.D. Erythrocyte distribution width (RBC) [Ratio] 12.9 % Normal 10-14.4 [facility] Comment on above: Performed By: #### S TRCUL #### Unless otherwise noted, all testing performed by [address], [place] [address] CLIA: [id number] [employer] Compliance Specialist: Pasha Valles M.D. Hematocrit (Bld) [Volume fraction] 31.9 % Low 34.4-44.8 [facility] Comment on above: Performed By: #### S TRCUL #### Unless otherwise noted, all testing performed by [place] [address] CLIA: [id number] [employer] Compliance Specialist: Pasha Valles M.D. Hemoglobin (Bld) [Mass/Vol] 11.0 g/dL Low 11.6-15.4 [facility] Comment on above: Performed By: #### S TRCUL #### Unless otherwise noted, all testing performed by [place] [address] CLIA: [id number] [employer] Compliance Specialist: Pasha Valles M.D. Lymphocytes (Bld) [#/Vol] 1.2 K/mcL Normal 1.0-3.7 [facility] Comment on above: Performed By: #### S TRCUL #### Unless otherwise noted, all testing performed by [place] [address] CLIA: [id number] [employer] Compliance Specialist: Pasha Valles M.D. Lymphocytes/100 WBC (Bld) 9.9 % Normal [facility] Comment on above: Performed By: #### S TRCUL #### Unless otherwise noted, all testing performed by [place] [address] CLIA: [id number] [employer] Compliance Specialist: Pasha Valles M.D. MCH (RBC) [Entitic mass] 29.9 pg Normal 27.9-33.9 [facility] Comment on above: Performed By: #### S TRCUL #### Unless otherwise noted, all testing performed by [place] [address] CLIA: [id number] [employer] Compliance Specialist: Pasha Valles M.D. MCHC (RBC) [Mass/Vol] 34.5 g/dL Normal 33.1-35.1 [facility] Comment on above: Performed By: #### S TRCUL #### Unless otherwise noted, all testing performed by [place] [address] CLIA: [id number] [employer] Compliance Specialist: Pasha Valles M.D. MCV (RBC) [Entitic vol] 86.6 fL Normal 82.6-98.9 [facility] Comment on above: Performed By: #### S TRCUL #### Unless otherwise noted, all testing performed by [place] [phone] CLIA: [id number] [employer] Compliance Specialist: Pasha Valles M.D. Monocytes (Bld) [#/Vol] 0.7 K/mcL High 0.1-0.6 [facility] Comment on above: Performed By: #### S TRCUL #### Unless otherwise noted, all testing performed by [place] [address] CLIA: [id number] [employer] Compliance Specialist: Pasha Valles M.D. Monocytes/100 WBC (Bld) 5.5 % Normal [facility] Comment on above: Performed By: #### S TRCUL #### Unless otherwise noted, all testing performed by [place] [address] CLIA: [id number] [employer] Compliance Specialist: Pasha Valles M.D. Neutrophils (Bld) [#/Vol] 10.5 K/mcL High 1.2-6.9 [facility] Comment on above: Performed By: #### S TRCUL #### Unless otherwise noted, all testing performed by [place] [address] CLIA: [id number] [employer] Compliance Specialist: Pasha Valles M.D. Platelet mean volume (Bld) [Entitic vol] 9.6 fL Normal 7.0-10.6 [facility] Comment on above: Performed By: #### S TRCUL #### Unless otherwise noted, all testing performed by [place] [address] CLIA: [id number] [employer]iance Specialist: Pasha Valles M.D. Platelets (Bld) [#/Vol] 218 K/mcL Normal 162-402 [facility] Comment on above: Performed By: #### S TRCUL #### Unless otherwise noted, all testing performed by [place] [address] CLIA: [id number] [employer]iance Specialist: Pasha Valles M.D. RBC (Bld) [#/Vol] 3.68 M/mcL Low 3.7-5.0 [facility] Comment on above: Performed By: #### S TRCUL #### Unless otherwise noted, all testing performed by [place] [address] CLIA: [id number] [employer] Compliance Specialist: Pasha Valles M.D. Segmented neutrophils/100 WBC (Bld) 84.0 % Normal [facility] Comment on above: Performed By: #### S TRCUL #### Unless otherwise noted, all testing performed by [place] [address] CLIA: [id number] [employer]iance Specialist: Pasha Valles M.D. WBC (Bld) [#/Vol] 12.5 K/mcL High 3.4-10.6 [facility] Comment on above: Performed By: #### S TRCUL #### Unless otherwise noted, all testing performed by [place] [address] CLIA: [id number] [employer]iance Specialist: Pasha Valles M.D. Type and Screenon 09-13-2018 Type and Screen Negative Normal [facility] Comment on above: Performed By: #### C BCDIF, CMET #### Unless otherwise noted, all testing performed by [place] [id number] CLIA: [id number] [employer] Specialist: Pasha Valles M.D. Urinalysis, Routineon 2018 Bilirubin,Urine Negative Normal NEG;NEGATIVE [facility] Comment on above: Performed By: #### S TRCUL #### Unless otherwise noted, all testing performed by [place] [address] CLIA: [id number] [employer]iance Specialist: Pasha Valles M.D. Blood,Urine Negative Normal NEG;NEGATIVE [facility] Comment on above: Performed By: #### S TRCUL #### Unless otherwise noted, all testing performed by [place] [address] CLIA: [id number] [employer] Specialist: Pasha Valles M.D. Character (U) Clear Normal [facility] Comment on above: Performed By: #### S TRCUL #### Unless otherwise noted, all testing performed by [place] [phone] CLIA: [id number] [employer]iance Specialist: Pasha Valles M.D. Color (U) Straw Normal [facility] Comment on above: Performed By: #### S TRCUL #### Unless otherwise noted, all testing performed by [place] [phone] CLIA: [id number] [employer] Specialist: Pasha Valles M.D. Glucose Ql (U) Negative Normal NEG;NEGATIVE [facility] Comment on above: Performed By: #### S TRCUL #### Unless otherwise noted, all testing performed by [place] [phone] CLIA: [id number] [employer]iance Specialist: Pasha Valles M.D. Ketone,Urine Negative Normal NEG;NEGATIVE [facility] Comment on above: Performed By: #### S TRCUL #### Unless otherwise noted, all testing performed by [place] [phone] CLIA: [id number] [employer]iance Specialist: Pasha Valles M.D. Leuk.Esterase,Urine Negative Normal Negative [facility] Comment on above: Performed By: #### S TRCUL #### Unless otherwise noted, all testing performed by [place] [phone] CLIA: [id number] [employer]iance Specialist: Pasha Valles M.D. Nitrite,Urine Negative Normal NEG;NEGATIVE [facility] Comment on above: Performed By: #### S TRCUL #### Unless otherwise noted, all testing performed by [place] [address] CLIA: [id number] [employer]iance Specialist: Pasha Valles M.D. pH (U) 7.0 [pH] Normal 4.5-8.0 [facility] Comment on above: Performed By: #### S TRCUL #### Unless otherwise noted, all testing performed by [place] [address] CLIA: [id number] [employer]iance Specialist: Pasha Valles M.D. Protein (U) [Mass/Vol] Negative Normal NEG;NEGATIVE [facility] Comment on above: Performed By: #### S TRCUL #### Unless otherwise noted, all testing performed by [place] [address] CLIA: [id number] [employer] Compliance Specialist: Pasha Valles M.D. Specific [place],Urine 1.002 Low 1.003-1.029 [facility] Comment on above: Performed By: #### S TRCUL #### Unless otherwise noted, all testing performed by [place] [address] CLIA: [id number] [employer] Compliance Specialist: Pasha Valles M.D. Squamous Epithelial 1 /HPF Normal 0-40 [facility] Comment on above: Performed By: #### S TRCUL #### Unless otherwise noted, all testing performed by [place] [address] CLIA: [id number] [employer]iance Specialist: Pasha Valles M.D. Urobilinogen,Urine < 2.0 Normal <2 [facility] Comment on above: Result Comment: Urob ilinogen, Urine Reference Range: <2.0 mg/dL Performed By: #### S TRCUL #### Unless otherwise noted, all testing performed by [place] [address] CLIA: [id number] [employer]iance Specialist: Pasha Valles M.D. WBC LM.HPF (Urine sed) [#/Area] /[HPF] Normal 0-5 [facility] Comment on above: Performed By: #### S TRCUL #### Unless otherwise noted, all testing performed by [place] [address] CLIA: [id number] [employer]iance Specialist: Pasha Valles M.D. Fibronectin Teston Fibronectin Test Negative Normal [facility] Comment on above: Performed By: #### S TRCUL #### Unless otherwise noted, all testing performed by [place] [address] CLIA: [id number] [employer]iance Specialist: Pasha Valles M.D. Urinalysis, Routineon 2018 Bilirubin,Urine Negative Normal NEG;NEGATIVE [facility] Comment on above: Performed By: #### S TRCUL #### Unless otherwise noted, all testing performed by [place] [address] CLIA: [id number] [employer]iance Specialist: Pasha Valles M.D. Blood,Urine Negative Normal NEG;NEGATIVE [facility] Comment on above: Performed By: #### S TRCUL #### Unless otherwise noted, all testing performed by [place] [address] CLIA: [id number] [employer]iance Specialist: Pasha Valles M.D. Cast, Hyaline 1 /LPF Normal 0-5 [facility] Comment on above: Performed By: #### S TRCUL #### Unless otherwise noted, all testing performed by [place] [address] CLIA: [id number] [employer]iance Specialist: Pasha Valles M.D. Character (U) Clear Normal [facility] Comment on above: Performed By: #### S TRCUL #### Unless otherwise noted, all testing performed by [place] [phone] CLIA: [id number] [employer]iance Specialist: Pasha Valles M.D. Color (U) Straw Normal [facility] Comment on above: Performed By: #### S TRCUL #### Unless otherwise noted, all testing performed by [place] [phone] CLIA: [id number] [employer]iance Specialist: Pasha Valles M.D. Glucose Ql (U) Negative Normal NEG;NEGATIVE [facility] Comment on above: Performed By: #### S TRCUL #### Unless otherwise noted, all testing performed by [place] [phone] CLIA: [id number] [employer] Compliance Specialist: Pasha Valles M.D. Ketone,Urine Negative Normal NEG;NEGATIVE [facility] Comment on above: Performed By: #### S TRCUL #### Unless otherwise noted, all testing performed by [place] [address] CLIA: [id number] [employer]iance Specialist: Pasha Valles M.D. Leuk.Esterase,Urine Small Abnormal Negative [facility] Comment on above: Performed By: #### S TRCUL #### Unless otherwise noted, all testing performed by [place] [address] CLIA: [id number] [employer] Compliance Specialist: Pasha Valles M.D. Nitrite,Urine Negative Normal NEG;NEGATIVE [facility] Comment on above: Performed By: #### S TRCUL #### Unless otherwise noted, all testing performed by [place] [address] CLIA: [id number] [employer]iance Specialist: Pasha Valles M.D. pH (U) 7.0 [pH] Normal 4.5-8.0 [facility] Comment on above: Performed By: #### S TRCUL #### Unless otherwise noted, all testing performed by [place] [address] CLIA: [id number] [employer] Compliance Specialist: Pasha Valles M.D. Protein (U) [Mass/Vol] Negative Normal NEG;NEGATIVE [facility] Comment on above: Performed By: #### S TRCUL #### Unless otherwise noted, all testing performed by [place] [address] CLIA: [id number] [employer]iance Specialist: Pasha Valles M.D. RBC LM.HPF (Urine sed) [#/Area] 1 /[HPF] Normal 0-5 [facility] Comment on above: Performed By: #### S TRCUL #### Unless otherwise noted, all testing performed by [place] [address] CLIA: [id number] [employer] Compliance Specialist: Pasha Valles M.D. Specific [place],Urine 1.003 Normal 1.003-1.029 [facility] Comment on above: Performed By: #### S TRCUL #### Unless otherwise noted, all testing performed by [place] [address] CLIA: [id number] [employer] Compliance Specialist: Pasha Valles M.D. Squamous Epithelial < 1 Normal 0-40 [facility] Comment on above: Performed By: #### S TRCUL #### Unless otherwise noted, all testing performed by [place] [address] CLIA: [id number] [employer]iance Specialist: Pasha Valles M.D. Urobilinogen,Urine < 2.0 Normal <2 [facility] Comment on above: Result Comment: Urob ilinogen, Urine Reference Range: <2.0 mg/dL Performed By: #### S TRCUL #### Unless otherwise noted, all testing performed by [place] [address] CLIA: [id number] [employer]iance Specialist: Pasha Valles M.D. WBC LM.HPF (Urine sed) [#/Area] 2 /[HPF] Normal 0-5 [facility] Comment on above: Performed By: #### S TRCUL #### Unless otherwise noted, all testing performed by [place] [address] CLIA: [id number] [employer]iance Specialist: Pasha Valles M.D. Wet Prepon 09-04-2018 Wet Prep Test Name: Wet Prep Culture Status: Final Trichomonas vaginalis: None Seen Clue Cells: None Seen Yeast: None Seen Normal [facility] Comment on above: Performed By: #### S TRCUL #### Unless otherwise noted, all testing performed by [place] [address] CLIA: [id number] [employer] Compliance Specialist: Pasha Valles M.D. CBC with Diffon 08-23-2018 Basophils (Bld) [#/Vol] 0.0 K/mcL Normal 0-0.2 [facility] Comment on above: Performed By: #### S TRCUL #### Unless otherwise noted, all testing performed by [place] [address] CLIA: [id number] [employer] Compliance Specialist: Pasha Valles M.D. Basophils/100 WBC (Bld) 0.2 % Normal [facility] Comment on above: Performed By: #### S TRCUL #### Unless otherwise noted, all testing performed by [place] [address] CLIA: [id number] [employer] Compliance Specialist: Pasha Valles M.D. Eosinophils (Bld) [#/Vol] 0.0 K/mcL Normal 0-0.5 [facility] Comment on above: Performed By: #### S TRCUL #### Unless otherwise noted, all testing performed by [place] [address] CLIA: [id number] [employer] Compliance Specialist: Pasha Valles M.D. Eosinophils/100 WBC (Bld) 0.0 % Normal [facility] Comment on above: Performed By: #### S TRCUL #### Unless otherwise noted, all testing performed by [place] [address] CLIA: [id number] [employer] Compliance Specialist: Pasha Valles M.D. Erythrocyte distribution width (RBC) [Ratio] 12.6 % Normal 10.0-14.4 [facility] Comment on above: Performed By: #### S TRCUL #### Unless otherwise noted, all testing performed by [place] [address] CLIA: [id number] [employer] Compliance Specialist: Pasha Valles M.D. Hematocrit (Bld) [Volume fraction] 35.7 % Normal 34.4-44.8 [facility] Comment on above: Performed By: #### S TRCUL #### Unless otherwise noted, all testing performed by [place] [phone] CLIA: [id number] [employer] Compliance Specialist: Pasha Valles M.D. Hemoglobin (Bld) [Mass/Vol] 12.1 g/dL Normal 11.6-15.4 [facility] Comment on above: Performed By: #### S TRCUL #### Unless otherwise noted, all testing performed by [place] [phone] CLIA: [id number] [employer] Compliance Specialist: Pasha Valles M.D. Lymphocytes (Bld) [#/Vol] 2.1 K/mcL Normal 1.0-3.7 [facility] Comment on above: Performed By: #### S TRCUL #### Unless otherwise noted, all testing performed by [place] [address] CLIA: [id number] [employer] Compliance Specialist: Pasha Valles M.D. Lymphocytes/100 WBC (Bld) 11.3 % Normal [facility] Comment on above: Performed By: #### S TRCUL #### Unless otherwise noted, all testing performed by [address] [place], [place] [address] CLIA: [id number] [employer] Compliance Specialist: Pasha Valles M.D. MCH (RBC) [Entitic mass] 29.9 pg Normal 27.9-33.9 [facility] Comment on above: Performed By: #### S TRCUL #### Unless otherwise noted, all testing performed by [place] [address] CLIA: [id number] [employer] Compliance Specialist: Pasha Valles M.D. MCHC (RBC) [Mass/Vol] 34.0 g/dL Normal 33.1-35.1 [facility] Comment on above: Performed By: #### S TRCUL #### Unless otherwise noted, all testing performed by [place] [phone] CLIA: [id number] [employer] Compliance Specialist: Pasha Valles M.D. MCV (RBC) [Entitic vol] 88.2 fL Normal 82.6-98.9 [facility] Comment on above: Performed By: #### S TRCUL #### Unless otherwise noted, all testing performed by [place] [address] CLIA: [id number] [employer] Compliance Specialist: Pasha Valles M.D. Monocytes (Bld) [#/Vol] 0.8 K/mcL High 0.1-0.6 [facility] Comment on above: Performed By: #### S TRCUL #### Unless otherwise noted, all testing performed by [place] [address] CLIA: [id number] [employer] Compliance Specialist: Pasha Valles M.D. Monocytes/100 WBC (Bld) 4.6 % Normal [facility] Comment on above: Performed By: #### S TRCUL #### Unless otherwise noted, all testing performed by [place] [address] CLIA: [id number] [employer]iance Specialist: Pasha Valles M.D. Neutrophils (Bld) [#/Vol] 15.4 K/mcL High 1.2-6.9 [facility] Comment on above: Performed By: #### S TRCUL #### Unless otherwise noted, all testing performed by [place] [address] CLIA: [id number] [employer] Compliance Specialist: Pasha Valles M.D. Platelet mean volume (Bld) [Entitic vol] 10.2 fL Normal 7.0-10.6 [facility] Comment on above: Performed By: #### S TRCUL #### Unless otherwise noted, all testing performed by [place] [address] CLIA: [id number] [employer]iance Specialist: Pasha Valles M.D. Platelets (Bld) [#/Vol] 212 K/mcL Normal 162-402 [facility] Comment on above: Performed By: #### S TRCUL #### Unless otherwise noted, all testing performed by [place] [address] CLIA: [id number] [employer]iance Specialist: Pasha Valles M.D. RBC (Bld) [#/Vol] 4.04 M/mcL Normal 3.7-5.0 [facility] Comment on above: Performed By: #### S TRCUL #### Unless otherwise noted, all testing performed by [place] [address] CLIA: [id number] [employer] Compliance Specialist: Pasha Valles M.D. Segmented neutrophils/100 WBC (Bld) 83.9 % Normal [facility] Comment on above: Performed By: #### S TRCUL #### Unless otherwise noted, all testing performed by [place] [address] CLIA: [id number] [employer] Compliance Specialist: Pasha Valles M.D. WBC (Bld) [#/Vol] 18.3 K/mcL High 3.4-10.6 [facility] Comment on above: Performed By: #### S TRCUL #### Unless otherwise noted, all testing performed by [place] [address] CLIA: [id number] [employer] Compliance Specialist: Pasha Valles M.D. Rupture Of [] Membranes on 08-23-2018 Rupture Of [] Membranes Negative Normal [facility] Comment on above: Result Comment: Rapi d test procedural control acceptable. Performed By: #### S TRCUL #### Unless otherwise noted, all testing performed by [place] [address] CLIA: [id number] [employer]iance Specialist: Pasha Valles M.D. Type and Screenon 08-23-2018 Type and Screen Negative Normal [facility] Comment on above: Performed By: #### S TRCUL #### Unless otherwise noted, all testing performed by [place] [address] CLIA: [id number] [employer]iance Specialist: Pasha Valles M.D. Urinalysis, Routineon 2018 Bilirubin,Urine Negative Normal NEG;NEGATIVE [facility] Comment on above: Performed By: #### S TRCUL #### Unless otherwise noted, all testing performed by [place] [phone] CLIA: [id number] [employer]iance Specialist: Pasha Valles M.D. Blood,Urine Negative Normal NEG;NEGATIVE [facility] Comment on above: Performed By: #### S TRCUL #### Unless otherwise noted, all testing performed by [place] [phone] CLIA: [id number] [employer]iance Specialist: Pasha Valles M.D. Character (U) Clear Normal [facility] Comment on above: Performed By: #### S TRCUL #### Unless otherwise noted, all testing performed by [place] [phone] CLIA: [id number] [employer]iance Specialist: Pasha Valles M.D. Color (U) Straw Normal [facility] Comment on above: Performed By: #### S TRCUL #### Unless otherwise noted, all testing performed by [place] [phone] CLIA: [id number] [employer]iance Specialist: Pasha Valles M.D. Glucose Ql (U) Negative Normal NEG;NEGATIVE [facility] Comment on above: Performed By: #### S TRCUL #### Unless otherwise noted, all testing performed by [place] [phone] CLIA: [id number] [employer]iance Specialist: Pasha Valles M.D. Ketone,Urine Negative Normal NEG;NEGATIVE [facility] Comment on above: Performed By: #### S TRCUL #### Unless otherwise noted, all testing performed by [place] [address] CLIA: [id number] [employer]iance Specialist: Pasha Valles M.D. Leuk.Esterase,Urine Trace Abnormal Negative [facility] Comment on above: Performed By: #### S TRCUL #### Unless otherwise noted, all testing performed by [place] [phone] CLIA: [id number] [employer]iance Specialist: Pasha Valles M.D. Nitrite,Urine Negative Normal NEG;NEGATIVE [facility] Comment on above: Performed By: #### S TRCUL #### Unless otherwise noted, all testing performed by [place] [phone] CLIA: [id number] [employer]iance Specialist: Pasha Valles M.D. pH (U) 7.0 [pH] Normal 4.5-8.0 [facility] Comment on above: Performed By: #### S TRCUL #### Unless otherwise noted, all testing performed by [place] [phone] CLIA: [id number] [employer]iance Specialist: Pasha Valles M.D. Protein (U) [Mass/Vol] Negative Normal NEG;NEGATIVE [facility] Comment on above: Performed By: #### S TRCUL #### Unless otherwise noted, all testing performed by [place] [phone] CLIA: [id number] [employer]iance Specialist: Pasha Valles M.D. RBC LM.HPF (Urine sed) [#/Area] /[HPF] Normal 0-5 [facility] Comment on above: Performed By: #### S TRCUL #### Unless otherwise noted, all testing performed by [place] [address] CLIA: [id number] [employer] Compliance Specialist: Pasha Valles M.D. Specific [place],Urine 1.003 Normal 1.003-1.029 [facility] Comment on above: Performed By: #### S TRCUL #### Unless otherwise noted, all testing performed by [place] [address] CLIA: [id number] [employer]iance Specialist: Pasha Valles M.D. Squamous Epithelial 2 /HPF Normal 0-40 [facility] Comment on above: Performed By: #### S TRCUL #### Unless otherwise noted, all testing performed by [place] [phone] CLIA: [id number] [employer]iance Specialist: Pasha Valles M.D. Urobilinogen,Urine < 2.0 Normal <2 [facility] Comment on above: Result Comment: Urob ilinogen, Urine Reference Range: <2.0 mg/dL Performed By: #### S TRCUL #### Unless otherwise noted, all testing performed by [place] [address] CLIA: [id number] [employer]iance Specialist: Pasha Valles M.D. WBC LM.HPF (Urine sed) [#/Area] 1 /[HPF] Normal 0-5 [facility] Comment on above: Performed By: #### S TRCUL #### Unless otherwise noted, all testing performed by [place] [address] CLIA: [id number] [employer]iance Specialist: Pasha Valles M.D. FS CBCon 08-08-2018 Erythrocyte distribution width (RBC) [Ratio] 12.4 % Normal 11.6-14.8 [facility] Comment on above: Performed By: #### F SCBC #### Unless otherwise noted, all testing performed by [place] [address] CLIA: [id number] [employer]iance Specialist: Pasha Valles M.D. Hematocrit (Bld) [Volume fraction] 34.5 % Low 36.0-46.0 [facility] Comment on above: Performed By: #### F SCBC #### Unless otherwise noted, all testing performed by [place] [address] CLIA: [id number] [employer]iance Specialist: Pasha Valles M.D. Hemoglobin (Bld) [Mass/Vol] 12.0 g/dL Normal 12.0-16.0 [facility] Comment on above: Performed By: #### F SCBC #### Unless otherwise noted, all testing performed by [place] [id number] CLIA: [id number] Oil Program Compliance Specialist: Pasha Valles M.D. Lymphocytes (Bld) [#/Vol] 2.3 K/mcL Normal 0.90-4.00 [facility] Comment on above: Performed By: #### F SCBC #### Unless otherwise noted, all testing performed by [place] [address] CLIA: [id number] [employer] Program Compliance Specialist: Pasha Valles M.D. Lymphocytes/100 WBC (Bld) 16.4 % Normal [facility] Comment on above: Performed By: #### F SCBC #### Unless otherwise noted, all testing performed by [place] [address] CLIA: [id number] [employer] Program Compliance Specialist: Pasha Valles M.D. MCH (RBC) [Entitic mass] 30.5 pg Normal 25.0-35.0 [facility] Comment on above: Performed By: #### F SCBC #### Unless otherwise noted, all testing performed by [place] [address] CLIA: [id number] [employer] Program Compliance Specialist: Pasha Valles M.D. MCHC (RBC) [Mass/Vol] 34.8 g/dL Normal 31.0-37.0 [facility] Comment on above: Performed By: #### F SCBC #### Unless otherwise noted, all testing performed by [place] [address] CLIA: [id number] [employer] Program Compliance Specialist: Pasha Valles M.D. MCV (RBC) [Entitic vol] 87.6 fL Normal 78-102 [facility] Comment on above: Performed By: #### F SCBC #### Unless otherwise noted, all testing performed by [place] [address] CLIA: [id number] [employer] Program Compliance Specialist: Pasha Valles M.D. Neutrophils (Bld) [#/Vol] 10.8 K/mcL High 1.70-7.00 [facility] Comment on above: Performed By: #### F SCBC #### Unless otherwise noted, all testing performed by [place] [address] CLIA: [id number] [employer] Program Compliance Specialist: Pasha Valles M.D. Platelet mean volume (Bld) [Entitic vol] 12.0 fL Normal 9.0-15.5 [facility] Comment on above: Performed By: #### F SCBC #### Unless otherwise noted, all testing performed by [place] [address] CLIA: [id number] [employer] Program Compliance Specialist: Pasha Valles M.D. Platelets (Bld) [#/Vol] 264 K/mcL Normal 150-400 [facility] Comment on above: Performed By: #### F SCBC #### Unless otherwise noted, all testing performed by [place] [address] CLIA: [id number] [employer] Program Compliance Specialist: Pasha Valles M.D. RBC (Bld) [#/Vol] 3.94 M/mcL Low 4.1-5.1 [facility] Comment on above: Performed By: #### F SCBC #### Unless otherwise noted, all testing performed by [place] [address] CLIA: [id number] [employer] Program Compliance Specialist: Pasha Valles M.D. Segmented neutrophils/100 WBC (Bld) 76.9 % Normal [facility] Comment on above: Performed By: #### F SCBC #### Unless otherwise noted, all testing performed by [place] [address] CLIA: [id number] [employer] Program Compliance Specialist: Pasha Valles M.D. Testing performed CBC - [facility] FSED Normal [facility] Comment on above: Result Comment: Test ing performed at [facility], [address] [place] [address]; Medical Communications Project Manager Jamar Shelton M.D. Performed By: #### F SCBC #### Unless otherwise noted, all testing performed by [place] [address] CLIA: [id number] [employer] Program Compliance Specialist: Pasha Valles M.D. WBC (Bld) [#/Vol] 14.0 K/mcL High 4.5-11.0 [facility] Comment on above: Performed By: #### F SCBC #### Unless otherwise noted, all testing performed by [place] [address] CLIA: [id number] [employer] Program Compliance Specialist: Pasha Valles M.D. [facility] P[facility] ferm[facility] 08-08-2018 Albumin [Mass/Vol] 3.4 g/dL Normal 3.2-4.5 [facility] Comment on above: Performed By: #### S TRCUL #### Unless otherwise noted, all testing performed by [place] [address] CLIA: [id number] [employer] Program Compliance Specialist: Pasha Valles M.D. ALP [Catalytic activity/Vol] 78 U/L Normal 40-140 [facility] Comment on above: Performed By: #### S TRCUL #### Unless otherwise noted, all testing performed by [place] [address] CLIA: [id number] [employer] Program Compliance Specialist: Pasha Valles M.D. ALT [Catalytic activity/Vol] 16 U/L Normal 0-40 [facility] Comment on above: Performed By: #### S TRCUL #### Unless otherwise noted, all testing performed by [place] [address] CLIA: [id number] [employer] Program Compliance Specialist: Pasha Valles M.D. AST [Catalytic activity/Vol] 20 U/L Normal 0-45 [facility] Comment on above: Performed By: #### S TRCUL #### Unless otherwise noted, all testing performed by [place] [address] CLIA: [id number] [employer] Program Compliance Specialist: Pasha Valles M.D. Bilirubin [Mass/Vol] 0.6 mg/dL Normal 0.0-1.3 [facility] Comment on above: Performed By: #### S TRCUL #### Unless otherwise noted, all testing performed by [place] [address] CLIA: [id number] [employer] Program Compliance Specialist: Pasha Valles M.D. Calcium [Mass/Vol] 9.7 mg/dL Normal 8.4-10.2 [facility] Comment on above: Performed By: #### S TRCUL #### Unless otherwise noted, all testing performed by [place] [address] CLIA: [id number] [employer] Program Compliance Specialist: Pasha Valles M.D. Chloride [Moles/Vol] 106 mmol/L Normal 98-108 [facility] Comment on above: Performed By: #### S TRCUL #### Unless otherwise noted, all testing performed by [place] [address] CLIA: [id number] [employer] Program Compliance Specialist: Pasha Valles M.D. CO2 [Moles/Vol] 24 mmol/L Normal 21-32 [facility] Comment on above: Performed By: #### S TRCUL #### Unless otherwise noted, all testing performed by [place] [address] CLIA: [id number] [employer] Program Compliance Specialist: Pasha Valles M.D. Creatinine [Mass/Vol] 0.8 mg/dL Normal 0.50-1.00 [facility] Comment on above: Performed By: #### S TRCUL #### Unless otherwise noted, all testing performed by [place] [address] CLIA: [id number] [employer] Program Compliance Specialist: Pasha Valles M.D. Glucose [Mass/Vol] 79 mg/dL Normal 65-99 [facility] Comment on above: Performed By: #### S TRCUL #### Unless otherwise noted, all testing performed by [place] [address] CLIA: [id number] [employer] Program Compliance Specialist: Pasha Valles M.D. Potassium [Moles/Vol] 2.9 mmol/L Low 3.5-5.1 [facility] Comment on above: Performed By: #### S TRCUL #### Unless otherwise noted, all testing performed by [place] [address] CLIA: [id number] [employer] Program Compliance Specialist: Pasha Valles M.D. Protein [Mass/Vol] 7.0 g/dL Normal 6.0-8.0 [facility] Comment on above: Performed By: #### S TRCUL #### Unless otherwise noted, all testing performed by [place] [address] CLIA: [id number] [employer] Program Compliance Specialist: Pasha Valles M.D. Sodium [Moles/Vol] 141 mmol/L Normal 135-145 [facility] Comment on above: Performed By: #### S TRCUL #### Unless otherwise noted, all testing performed by [place] [address] CLIA: [id number] [employer] Program Compliance Specialist: Pasha Valles M.D. Testing performed [facility] FSED Normal [facility] Comment on above: Result Comment: Test ing performed at [facility], [address], [place]; Medical Communications Project Manager Jamar Shelton M.D. Performed By: #### S TRCUL #### Unless otherwise noted, all testing performed by [place] [address] CLIA: [id number] [employer] Program Compliance Specialist: Pasha Valles M.D. Urea nitrogen [Mass/Vol] 5 mg/dL Low 8-25 [facility] Comment on above: Performed By: #### S TRCUL #### Unless otherwise noted, all testing performed by [place] [address] CLIA: [id number] [employer] Program Compliance Specialist: Pasha Valles M.D. FS Urinalysison 08-08-2018 Bilirubin,Urine Negative Normal Negative [facility] Comment on above: Performed By: #### F SUA #### Unless otherwise noted, all testing performed by [place] [address] CLIA: [id number] [employer] Program Compliance Specialist: Pasha Valles M.D. Blood,Urine Trace Abnormal Negative [facility] Comment on above: Performed By: #### F SUA #### Unless otherwise noted, all testing performed by [place] [address] CLIA: [id number] [employer] Program Compliance Specialist: Pasha Valles M.D. Character (U) Slightly Cloudy Normal [facility] Comment on above: Performed By: #### F SUA #### Unless otherwise noted, all testing performed by [place] [phone] CLIA: [id number] [employer] Program Compliance Specialist: Pasha Valles M.D. Color (U) Light Yellow Normal [facility] Comment on above: Performed By: #### F SUA #### Unless otherwise noted, all testing performed by [place] [phone] CLIA: [id number] [employer] Program Compliance Specialist: Pasha Valles M.D. Glucose Ql (U) Negative Normal Negative [facility] Comment on above: Performed By: #### F SUA #### Unless otherwise noted, all testing performed by [place] [phone] CLIA: [id number] [employer] Program Compliance Specialist: Pasha Valles M.D. Ketone,Urine 15 mg/dL Abnormal Negative [facility] Comment on above: Performed By: #### F SUA #### Unless otherwise noted, all testing performed by [place] [phone] CLIA: [id number] [employer] Program Compliance Specialist: Pasha Valles M.D. Leuk.Esterase,Urine Moderate Abnormal Negative [facility] Comment on above: Performed By: #### F SUA #### Unless otherwise noted, all testing performed by [place] [phone] CLIA: [id number] [employer] Program Compliance Specialist: Pasha Valles M.D. Nitrite,Urine Negative Normal NEG;NEGATIVE [facility] Comment on above: Performed By: #### F SUA #### Unless otherwise noted, all testing performed by [place] [address] CLIA: [id number] [employer] Program Compliance Specialist: Pasha Valles M.D. pH (U) 7.0 [pH] Normal 4.5-8.0 [facility] Comment on above: Performed By: #### F SUA #### Unless otherwise noted, all testing performed by [place] [address] CLIA: [id number] [employer] Program Compliance Specialist: Pasha Valles M.D. Protein (U) [Mass/Vol] Negative Normal Negative [facility] Comment on above: Performed By: #### F SUA #### Unless otherwise noted, all testing performed by [place] [address] CLIA: [id number] [employer] Program Compliance Specialist: Pasha Valles M.D. Specific [place],Urine 1.015 Normal 1.003-1.029 [facility] Comment on above: Performed By: #### F SUA #### Unless otherwise noted, all testing performed by [place] [address] CLIA: [id number] Oil Program Compliance Specialist: Pasha Valles M.D. Testing performed [facility] FSED Normal [facility] Comment on above: Result Comment: Test ing performed at [facility], [address] [place] [address]; Medical Communications Project Manager Jamar Shelton M.D. Performed By: #### F SUA #### Unless otherwise noted, all testing performed by [place] [address] CLIA: [id number] [employer] Program Compliance Specialist: Pasha Valles M.D. Urobilinogen,Urine 0.2 mg/dL Normal <2 [facility] Comment on above: Performed By: #### F SUA #### Unless otherwise noted, all testing performed by [place] [address] CLIA: [id number] [employer] Program Compliance Specialist: Pasha Vlales M.D. Urinalysis, Routineon 2017 Bacteria LM.HPF (Urine sed) [#/Area] Occasional Abnormal NS;RARE [facility] Comment on above: Performed By: #### U A #### Unless otherwise noted, all testing performed by [place] [address] CLIA: [id number] [employer] Program Compliance Specialist: Pasha Valles M.D. Bilirubin,Urine Negative Normal NEG;NEGATIVE [facility] Comment on above: Performed By: #### U A #### Unless otherwise noted, all testing performed by [place] [address] CLIA: [id number] [employer] Program Compliance Specialist: Pasha Valles M.D. Blood,Urine Negative Normal NEG;NEGATIVE [facility] Comment on above: Performed By: #### U A #### Unless otherwise noted, all testing performed by [place] [address] CLIA: [id number] [employer] Program Compliance Specialist: Pasha Valles M.D. Character (U) Clear Normal [facility] Comment on above: Performed By: #### U A #### Unless otherwise noted, all testing performed by [place] [address] CLIA: [id number] [employer] Program Compliance Specialist: Pasha Valles M.D. Color (U) Yellow Normal [facility] Comment on above: Performed By: #### U A #### Unless otherwise noted, all testing performed by [place] [address] CLIA: [id number] [employer] Program Compliance Specialist: Pasha Valles M.D. Glucose Ql (U) Negative Normal NEG;NEGATIVE [facility] Comment on above: Performed By: #### U A #### Unless otherwise noted, all testing performed by [place] [phone] CLIA: [id number] [employer] Program Compliance Specialist: Pasha Valles M.D. Ketone,Urine Negative Normal NEG;NEGATIVE [facility] Comment on above: Performed By: #### U A #### Unless otherwise noted, all testing performed by [place] [phone] CLIA: [id number] [employer] Program Compliance Specialist: Pasha Valles M.D. Leuk.Esterase,Urine Large Abnormal Negative [facility] Comment on above: Performed By: #### U A #### Unless otherwise noted, all testing performed by [place] [phone] CLIA: [id number] [employer] Program Compliance Specialist: Pasha Valles M.D. Nitrite,Urine Negative Normal NEG;NEGATIVE [facility] Comment on above: Performed By: #### U A #### Unless otherwise noted, all testing performed by [place] [address] CLIA: [id number] [employer] Program Compliance Specialist: Pasha Valles M.D. pH (U) 7.0 [pH] Normal 4.5-8.0 [facility] Comment on above: Performed By: #### U A #### Unless otherwise noted, all testing performed by [place] [address] CLIA: [id number] [employer] Program Compliance Specialist: Pasha Valles M.D. Protein (U) [Mass/Vol] Negative Normal NEG;NEGATIVE [facility] Comment on above: Performed By: #### U A #### Unless otherwise noted, all testing performed by [place] [address] CLIA: [id number] Oil Program Compliance Specialist: Pasha Valles M.D. RBC LM.HPF (Urine sed) [#/Area] 1 /[HPF] Normal 0-5 [facility] Comment on above: Performed By: #### U A #### Unless otherwise noted, all testing performed by [place] [address] CLIA: [id number] Oil Program Compliance Specialist: Pasha Valles M.D. Specific [place],Urine 1.005 Normal 1.003-1.029 [facility] Comment on above: Performed By: #### U A #### Unless otherwise noted, all testing performed by [place] [address] CLIA: [id number] Oil Program Compliance Specialist: Pasha Valles M.D. Squamous Epithelial 1 /HPF Normal 0-40 [facility] Comment on above: Performed By: #### U A #### Unless otherwise noted, all testing performed by [place] [address] CLIA: [id number] Oil Program Compliance Specialist: Pasha Valles M.D. Urobilinogen,Urine < 2.0 Normal <2 [facility] Comment on above: Result Comment: Urob ilinogen, Urine Reference Range: <2.0 mg/dL Performed By: #### U A #### Unless otherwise noted, all testing performed by [place] [address] CLIA: [id number] [employer] Program Compliance Specialist: Pasha Valles M.D. WBC LM.HPF (Urine sed) [#/Area] 11 /[HPF] High 0-5 [facility] Comment on above: Performed By: #### U A #### Unless otherwise noted, all testing performed by [place] [address] CLIA: [id number] [employer] Program Compliance Specialist: Pasha Valles M.D. CBC with Diffon 06-02-2018 Basophils (Bld) [#/Vol] 0.1 K/mcL Normal 0-0.2 [facility] Comment on above: Performed By: #### C BRITTANY, CMET #### Unless otherwise noted, [place] [address] CLIA: [id number] [employer] Program Compliance Specialist: Pasha Valles M.D. Basophils/100 WBC (Bld) 0.8 % Normal [facility] Comment on above: Performed By: #### C BCDIF, CMET #### Unless otherwise noted, [place] [address] CLIA: [id number] [employer] Program Compliance Specialist: Pasha Valles M.D. Eosinophils (Bld) [#/Vol] 0.1 K/mcL Normal 0-0.5 [facility] Comment on above: Performed By: #### C BCDIF, CMET #### Unless otherwise noted, [place] [address] CLIA: [id number] [employer] Program Compliance Specialist: Pasha Valles M.D. Eosinophils/100 WBC (Bld) 0.6 % Normal [facility] Comment on above: Performed By: #### C BCDIF, CMET #### Unless otherwise noted, [place] [address] CLIA: [id number] [employer] Program Compliance Specialist: Pasha Valles M.D. Erythrocyte distribution width (RBC) [Ratio] 12.8 % Normal 10-14.4 [facility] Comment on above: Performed By: #### C BCDIF, CMET #### Unless otherwise noted, [place] [address] CLIA: [id number] [employer] Program Compliance Specialist: Pasha Valles M.D. Hematocrit (Bld) [Volume fraction] 33.7 % Low 34.4-44.8 [facility] Comment on above: Performed By: #### C BCDISylvia, CMET #### Unless otherwise noted, [place] [address] CLIA: [id number] [employer] Program Compliance Specialist: Pasha Valles M.D. Hemoglobin (Bld) [Mass/Vol] 11.9 g/dL Normal 11.6-15.4 [facility] Comment on above: Performed By: #### C BCDISylvia, CMET #### Unless otherwise noted, [place] [address] CLIA: [id number] [employer] Program Compliance Specialist: Pasha Valles M.D. Lymphocytes (Bld) [#/Vol] 2.9 K/mcL Normal 1.0-3.7 [facility] Comment on above: Performed By: #### C BCDIF, CMET #### Unless otherwise noted, [place] [address] CLIA: [id number] [employer] Program Compliance Specialist: Pasha Valles M.D. Lymphocytes/100 WBC (Bld) 21.5 % Normal [facility] Comment on above: Performed By: #### C BCDISylvia, CMET #### Unless otherwise noted, [place] [address] CLIA: [id number] [employer] Program Compliance Specialist: Pasha Valles M.D. MCH (RBC) [Entitic mass] 31.4 pg Normal 27.9-33.9 [facility] Comment on above: Performed By: #### C LENNOXDISylvia, CMET #### Unless otherwise noted, [place] [address] CLIA: [id number] [employer] Program Compliance Specialist: Pasha Valles M.D. MCHC (RBC) [Mass/Vol] 35.3 g/dL High 33.1-35.1 [facility] Comment on above: Performed By: #### C LENNOXDISylvia, CMET #### Unless otherwise noted, [place] [address] CLIA: [id number] [employer] Program Compliance Specialist: Pasha Valles M.D. MCV (RBC) [Entitic vol] 88.8 fL Normal 82.6-98.9 [facility] Comment on above: Performed By: #### C BCDISylvia, CMET #### Unless otherwise noted, all testing performed by [place] [id number] CLIA: [id number] [employer] Program Compliance Specialist: Pasah Valles M.D. Monocytes (Bld) [#/Vol] 0.8 K/mcL High 0.1-0.6 [facility] Comment on above: Performed By: #### C BRITTANY, CMET #### Unless otherwise noted, [place] [address] CLIA: [id number] [employer] Program Compliance Specialist: Pasha Valles M.D. Monocytes/100 WBC (Bld) 6.2 % Normal [facility] Comment on above: Performed By: #### C BRITTANY, CMET #### Unless otherwise noted, [place] [address] CLIA: [id number] [employer] Program Compliance Specialist: Pasha Valles M.D. Neutrophils (Bld) [#/Vol] 9.4 K/mcL High 1.2-6.9 [facility] Comment on above: Performed By: #### C BRITTANY, CMET #### Unless otherwise noted, [place] [address] CLIA: [id number] [employer] Program Compliance Specialist: Pasha Valles M.D. Platelet mean volume (Bld) [Entitic vol] 9.8 fL Normal 7.0-10.6 [facility] Comment on above: Performed By: #### C BRITTANY, CMET #### Unless otherwise noted, [place] [address] CLIA: [id number] [employer] Program Compliance Specialist: Pasha Valles M.D. Platelets (Bld) [#/Vol] 224 K/mcL Normal 162-402 [facility] Comment on above: Performed By: #### C BRITTANY, CMET #### Unless otherwise noted, all testing performed by [facility] [place] [id number] CLIA: [id number] [employer] Program Compliance Specialist: Pasha Valles M.D. RBC (Bld) [#/Vol] 3.80 M/mcL Normal 3.7-5.0 [facility] Comment on above: Performed By: #### C BCDIF, CMET #### Unless otherwise noted, [place] [address] CLIA: [id number] [employer] Program Compliance Specialist: Pasha Valles M.D. Segmented neutrophils/100 WBC (Bld) 70.9 % Normal [facility] Comment on above: Performed By: #### C BCLEXUS, CMET #### Unless otherwise noted, [place] [address] CLIA: [id number] [employer] Program Compliance Specialist: Pasha Valles M.D. WBC (Bld) [#/Vol] 13.3 K/mcL High 3.4-10.6 [facility] Comment on above: Performed By: #### C BRITTANY, CMET #### Unless otherwise noted, [place] [address] CLIA: [id number] [employer] Program Compliance Specialist: Pasha Valles M.D. [facility] 06-02-2018 Albumin [Mass/Vol] 3.2 g/dL Normal 3.2-4.5 [facility] Comment on above: Performed By: #### C BRITTANY, CMET #### Unless otherwise noted, [place] [address] CLIA: [id number] [employer] Program Compliance Specialist: Pasha Valles M.D. ALP [Catalytic activity/Vol] 59 U/L Normal 40-140 [facility] Comment on above: Performed By: #### C BRITTANY, CMET #### Unless otherwise noted, [place] [address] CLIA: [id number] [employer] Program Compliance Specialist: Pasha Valles M.D. ALT [Catalytic activity/Vol] 18 U/L Normal 14-65 [facility] Comment on above: Result Comment: This test result might be falsely depressed or falsely elevated on samples drawn from patients taking Sulfasalazine and Sulfapyridine. Venipuncture should occur prior to taking either of these drugs. Performed By: #### C BRITTANY, CMET #### Unless otherwise noted, [place] [address] CLIA: [id number] [employer] Program Compliance Specialist: Pasha Valles M.D. AST [Catalytic activity/Vol] 10 U/L Normal 0-45 [facility] Comment on above: Result Comment: This test result might be falsely depressed or falsely elevated on samples drawn from patients taking Sulfasalazine and Sulfapyridine. Venipuncture should occur prior to taking either of these drugs. Performed By: #### C BRITTANY, CMET #### Unless otherwise noted, [place] [address] CLIA: [id number] [employer] Program Compliance Specialist: Pasha Valles M.D. Bilirubin [Mass/Vol] 0.2 mg/dL Low 0.3-1.2 [facility] Comment on above: Performed By: #### C BRITTANY, CMET #### Unless otherwise noted, [place] [address] CLIA: [id number] [employer] Program Compliance Specialist: Pasha Valles M.D. Calcium [Mass/Vol] 9.0 mg/dL Normal 8.4-10.2 [facility] Comment on above: Performed By: #### C BCDIF, CMET #### Unless otherwise noted, all testing performed by [address] [address] CLIA: [id number] [employer] Program Compliance Specialist: Pasha Valles M.D. Chloride [Moles/Vol] 108 mmol/L Normal 98-108 [facility] Comment on above: Performed By: #### C BCDIF, CMET #### Unless otherwise noted, all testing performed by [address] [address] CLIA: [id number] [employer] Program Compliance Specialist: Pasha Valles M.D. CO2 [Moles/Vol] 23 mmol/L Normal 21-32 [facility] Comment on above: Performed By: #### C LENNOXDISylvia, CMET #### Unless otherwise noted, all testing performed by [address] [address] CLIA: [id number] [employer] Program Compliance Specialist: Pasha Valles M.D. Creatinine [Mass/Vol] 0.56 mg/dL Normal 0.50-1.00 [facility] [facility] Comment on above: Performed By: #### C LNENOXDISylvia, CMET #### Unless otherwise noted, all testing performed by [place] [id number] CLIA: [id number] [employer] Program Compliance Specialist: Pasha Valles M.D. GFR/1.73 sq M predicted among blacks MDRD (S/P/Bld) [Vol rate/Area] mL/min/{1.73_m2} Normal [facility] Comment on above: Result Comment: Afri can Guyanese GFR Calc Performed By: #### C BCDIF, CMET #### Unless otherwise noted, all testing performed by [address] [address] CLIA: [id number] [employer] Program Compliance Specialist: Pasha Valles M.D. GFR/1.73 sq M predicted among non-blacks MDRD (S/P/Bld) [Vol rate/Area] mL/min/{1.73_m2} Normal [facility] Comment on above: Result Comment: Non- GFR Calc eGFR is an estimated Glomerular Filtration Rate based on the value of the patient's serum creatinine. In outpatients, eGFR should be used as a helpful tool in screening for CKD. In inpatients or patients with acute renal failure, eGFR represents the GFR at the moment of the draw and should be used with caution. Performed By: #### C BRITTANY, CMET #### Unless otherwise noted, [place] [address] CLIA: [id number] [employer] Program Compliance Specialist: Pasha Valles M.D. Glucose [Mass/Vol] 88 mg/dL Normal 70-99 [facility] Comment on above: Result Comment: This test result might be falsely depressed or falsely elevated on samples drawn from patients taking Sulfasalazine and Sulfapyridine. Venipuncture should occur prior to taking either of these drugs. Performed By: #### C BRITTANY, NADEEMT #### Unless otherwise noted, [place] [address] CLIA: [id number] [employer] Program Compliance Specialist: Pasha Valles M.D. Potassium [Moles/Vol] 3.3 mmol/L Low 3.5-5.1 [facility] Comment on above: Performed By: #### C BRITTANY, CMET #### Unless otherwise noted, [place] [address] CLIA: [id number] [employer] Program Compliance Specialist: Pasha Valles M.D. Protein [Mass/Vol] 6.7 g/dL Normal 6.0-8.0 [facility] Comment on above: Performed By: #### C BCDIF, CMET #### Unless otherwise noted, all testing performed by [address] [address] CLIA: [id number] [employer] Program Compliance Specialist: Pasha Valles M.D. Sodium [Moles/Vol] 141 mmol/L Normal 135-145 [facility] Comment on above: Performed By: #### C BCDIF, CMET #### Unless otherwise noted, all testing performed by [address] [address] CLIA: [id number] [employer] Program Compliance Specialist: Pasha Valles M.D. Urea nitrogen [Mass/Vol] 5 mg/dL Low 8-25 [facility] Comment on above: Performed By: #### C BCDIF, CMET #### Unless otherwise noted, all testing performed by [address] [address] CLIA: [id number] [employer] Program Compliance Specialist: Pasha Valles M.D. Culture, Urineon 06-02-2018 Culture, Urine Test Name: Culture, Urine Culture Status: Final Culture Report: No significant growth. Micro Source: Urine Normal [facility] Comment on above: Performed By: #### U RCUL #### Unless otherwise noted, all testing performed by [address] [address] CLIA: [id number] [employer] Program Compliance Specialist: Pasha Valles M.D. 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 HISTORY OF PRESENT ILLNESS Rohan is an 17-year-old 1 female. Her last menstrual period was 01/10/2018. She had an early ultrasound done on 03/08/2018, that gives her a due date for 10/24/2018, placing her at 20 weeks' gestation. care has been at [facility], otherwise known as [facility]. She came to [facility] with the complaints of severe lower abdominal and lower back pain and dysuria. She denied any fever, chills, nausea, vomiting, diarrhea, constipation, visual changes, headaches, vaginal bleeding, unusual vaginal discharge, or recent trauma. She was brought to Labor and Delivery where she was evaluated. PAST MEDICAL HISTORY 1. Attention deficit disorder with hyperactivity. 2. Depression. 3. Irritable bowel syndrome. 4. Personality disorder. 5. Trichomoniasis. SOCIAL HISTORY She is single. She denies the use of alcohol, cigarettes, or illicit drugs. PAST SURGICAL HISTORY Significant for Nexplanon insertion in 2014, with removal in March of 2018. She has also had a tonsillectomy and adenoidectomy, as well as tubes placed in her ears. CURRENT MEDICATIONS vitamins. ALLERGIES She claims allergies to latex and to Singulair. FAMILY HISTORY Positive for type 2 diabetes. Her mother has multiple sclerosis. Her sister has migraines. Her mother had a stroke. Her mother has lupus. Her grandmother had cirrhosis of the liver. REVIEW OF SYSTEMS Has already been described. PHYSICAL EXAMINATION Vital Signs: She is 4 feet 11 inches tall. She weighs about 172 pounds. Pulse is 80, respiratory rate is 18, temperature is 98.6, blood pressure is 120/80. HEENT: Within normal limits. Neck: There is no thyromegaly. Chest: Clear. Heart: Regular rate and rhythm with a 2/6 systolic ejection murmur consistent with . Breasts: Without lesions or masses. Abdomen: Soft and nontender with the fundus to the umbilicus. Extremities: Without edema. Cervix: Long and closed. She has some suprapubic tenderness and some lower back tenderness, which appears to be musculoskeletal. CBC, comprehensive metabolic profile, and urinalysis were obtained. The only abnormality related to her complaint is extensive bacteria in her urine. She was placed on a monitor, and there were no contractions. heart tones were reassuring. Due to her 20-week gestational age, it was a very short episode of monitoring. The patient was given IV fluid hydration. She was given pain medications in the form of Nubain and Tylenol. Because of her complaints of her pain being 7/10, I presumed that she had a severe urinary tract infection, and gave her a single dose of Ancef. She actually slept overnight and was better the next day. She wanted to be released. I advised her that would be fine. She received a single dose of IV antibiotic, and we would know in the future if the culture grows anything out. Since she was better, she was released with no restrictions, and I asked her to please follow up with Dr. Loreto Dale, her primary leadership intern, this week. JENNIFER MONTEMAYOR MD D 06/02/2018 10:16 [id number] T 06/02/2018 10:56 OFG/MODL cc: MD Loreto Dolan MD Electronically Signed By Jennifer Montemayor M.D. on 07 Jun 2018 17:45:33 GMT Normal [facility] Urine with Indicated Culture on 06-02-2018 Amorphous,Crystal Rare Normal NS;RARE;OC C;FE W;MOD;MANY [facility] Comment on above: Performed By: #### U IC #### Unless otherwise noted, [place] [address] CLIA: [id number] [employer] Program Compliance Specialist: Pasha Valles M.D. Bacteria LM.HPF (Urine sed) [#/Area] Occasional Abnormal NS;RARE [facility] Comment on above: Performed By: #### U IC #### Unless otherwise noted, [place] [address] CLIA: [id number] [employer] Program Compliance Specialist: Pasha Valles M.D. Bilirubin,Urine Negative Normal NEG;NEGATIVE [facility] Comment on above: Performed By: #### U IC #### Unless otherwise noted, [place] [address] CLIA: [id number] [employer] Program Compliance Specialist: Pasha Valles M.D. Blood,Urine Negative Normal NEG;NEGATIVE [facility] Comment on above: Performed By: #### U IC #### Unless otherwise noted, [place] [address] CLIA: [id number] [employer] Program Compliance Specialist: Pasha Valles M.D. Character (U) Clear Normal [facility] Comment on above: Performed By: #### U IC #### Unless otherwise noted, all testing performed by [address] CLIA: [id number] [employer] Program Compliance Specialist: Pasha Valles M.D. Color (U) Yellow Normal [facility] Comment on above: Performed By: #### U IC #### Unless otherwise noted, [place] [address] CLIA: [id number] [employer] Program Compliance Specialist: Pasha Valles M.D. Glucose Ql (U) Negative Normal NEG;NEGATIVE [facility] Comment on above: Performed By: #### U IC #### Unless otherwise noted, [place] [address] CLIA: [id number] [employer] Program Compliance Specialist: Pasha Valles M.D. Ketone,Urine Negative Normal NEGATIVE;NEG [facility] Comment on above: Performed By: #### U IC #### Unless otherwise noted, [place] [address] CLIA: [id number] [employer] Program Compliance Specialist: Pasha Valles M.D. Leuk.Esterase,Urine Trace Abnormal Negative [facility] Comment on above: Performed By: #### U IC #### Unless otherwise noted, [place] [address] CLIA: [id number] [employer] Program Compliance Specialist: Pasha Valles M.D. Nitrite,Urine Negative Normal NEG;NEGATIVE [facility] Comment on above: Performed By: #### U IC #### Unless otherwise noted, [place] [address] CLIA: [id number] [employer] Program Compliance Specialist: Pasha Valles M.D. pH (U) 7.0 [pH] Normal 4.5-8.0 [facility] Comment on above: Performed By: #### U IC #### Unless otherwise noted, all testing performed by [place] [id number] CLIA: [id number] [employer] Program Compliance Specialist: Pasha Valles M.D. Protein (U) [Mass/Vol] Negative Normal NEGATIVE;NEG [facility] Comment on above: Performed By: #### U IC #### Unless otherwise noted, [place] [address] CLIA: [id number] [employer] Program Compliance Specialist: Pasha Valles M.D. RBC LM.HPF (Urine sed) [#/Area] 0-3 Normal 0-3+;NS [facility] Comment on above: Performed By: #### U IC #### Unless otherwise noted, [place] [address] CLIA: [id number] [employer] Program Compliance Specialist: Pasha Valles M.D. Specific [place],Urine 1.015 Normal 1.003-1.029 [facility] Comment on above: Performed By: #### U IC #### Unless otherwise noted, [place] [address] CLIA: [id number] [employer] Program Compliance Specialist: Pasha Valles M.D. Squamous Epithelial 25-40 Abnormal 0-3+;[facility] Comment on above: Performed By: #### U IC #### Unless otherwise noted, [place] [address] CLIA: [id number] [employer] Program Compliance Specialist: Pasha Valles M.D. Urobilinogen,Urine 0.2 EU/dL Normal 0.2 [facility] Comment on above: Performed By: #### U IC #### Unless otherwise noted, [place] [address] CLIA: [id number] [employer] Program Compliance Specialist: Pasha Valles M.D. WBC LM.HPF (Urine sed) [#/Area] 5-10 Abnormal 0-3+;3-5+;[facility] Comment on above: Performed By: #### U IC #### Unless otherwise noted, [place] [address] CLIA: [id number] [employer] Program Compliance Specialist: Pasha Valles M.D. Culture, Strep (Throat)on Culture, Strep (Throat) Test Name: Culture, Strep (Throat) Culture Status: Final Culture Report: No Group A streptococci isolated. Micro Source: Throat Normal [facility] Comment on above: Performed By: #### S TRCUL #### Unless otherwise noted, all testing performed by [place] [address] CLIA: [id number] [employer] Program Compliance Specialist: Pasha Valles M.D. FS Rapid Strep A Scrnon 04-23 S. pyogenes Ag IA Ql (Unsp spec) Negative Normal Negative [facility] Comment on above: Result Comment: Nega tive rapid antigen tests will be followed- up with a culture. Rapid test procedural control acceptable. Testing performed at [facility], [address] [place] [address]; Medical Communications Project Manager Jamar Shelton M.D. Performed By: #### F SSTREP #### Unless otherwise noted, all testing performed by [facility] [address] [place] [address] CLIA: [id number] [employer] Program Compliance Specialist: Pasha Valles M.D. CPK, Totalon 04-07-2018 CK enzyme act/vol 44 U/L Invalid Interpretation Code [facility] Comprehensive Metabolic Pane fermin 04-07-2018 Albumin mass conc 3.5 g/dL Invalid Interpretation Code 3.2 - 4.5 g/dL [facility] ALP enzyme act/vol 56 U/L Invalid Interpretation Code [facility] ALT enzyme act/vol 34 U/L Invalid Interpretation Code [facility] Comment on above: This test result jasiel ht be falsely depressed or falsely elevated on samples drawn from patients taking Sulfasalazine and Sulfapyridine. Venipuncture should occur prior to taking either of these drugs. AST enzyme act/vol 20 U/L Invalid Interpretation Code [facility] Comment on above: This test result jasiel ht be falsely depressed or falsely elevated on samples drawn from patients taking Sulfasalazine and Sulfapyridine. Venipuncture should occur prior to taking either of these drugs. Bilirubin mass conc 0.3 mg/dL Invalid Interpretation Code 0.3 - 1.2 mg/dL [facility] Calcium mass conc 8.9 mg/dL Invalid Interpretation Code 8.4 - 10.2 mg/dL [facility] Chloride molar conc 107 mmol/L Invalid Interpretation Code 98 - 108 mmol/L [facility] CO2 molar conc 24 mmol/L Invalid Interpretation Code 21 - 32 mmol/L [facility] Creatinine mass conc 0.69 mg/dL Invalid Interpretation Code 0.5 - 1 mg/dL [facility] GFR/1.73 sq M predicted among blacks MDRD vol rate/area (S/P/Bld) mL/min/{1.73_m2} Invalid Interpretation Code ml/min/1.73sq. m [facility] Comment on above: GFR Calc GFR/1.73 sq M predicted among non-blacks MDRD vol rate/area (S/P/Bld) mL/min/{1.73_m2} Invalid Interpretation Code ml/min/1.73sq. m [facility] Comment on above: Non- GFR Calc eGFR is an estimated Glomerular Filtration Rate based on the value of the patient's serum creatinine. In outpatients, eGFR should be used as a helpful tool in screening for CKD. In inpatients or patients with acute renal failure, eGFR represents the GFR at the moment of the draw and should be used with caution. Glucose mass conc 91 mg/dL Invalid Interpretation Code 70 - 99 mg/dL [facility] Comment on above: This test result jasiel ht be falsely depressed or falsely elevated on samples drawn from patients taking Sulfasalazine and Sulfapyridine. Venipuncture should occur prior to taking either of these drugs. Interpretation and review of laboratory results Abnormal Invalid Interpretation Code [facility] Potassium molar conc 3.4 mmol/L Low 3.5 - 5 .1 mmol/L [facility] Protein mass conc 7.2 g/dL Invalid Interpretation Code 6 - 8 g/dL [facility] Sodium molar conc 139 mmol/L Invalid Interpretation Code 135 - 145 mmol/L [facility] Urea nitrogen mass conc 6 mg/dL Low 8 - 25 mg/dL [facility] Magnesium Levelon 04-07-2018 Magnesium mass conc 1.9 mg/dL Invalid Interpretation Code 1.6 - 2.4 mg/dL [facility] Sedimentation Rateon 018 Sed Rate 19 Invalid Interpretation Code [facility] T4, Freeon 04-07-2018 T4 free mass conc 0.9 ng/dL Invalid Interpretation Code 0.7 - 1.7 ng/dL [facility] Comment on above: Samples from patient s routinely receiving high dose biotin therapy (100-300 mg/day) may show falsely increased results. Please correlate clinically. TSHon 04-07-2018 Thyrotropin Qn 1.73 m[IU]/L Invalid Interpretation Code [facility] Comment on above: Samples from patient s routinely receiving high dose biotin therapy (100-300 mg/day) may show falsely decreased results. Please correlate clinically. Urinalysison 04-07-2018 Bacteria, Urine Occasional Abnormal NS;RARE /HPF [facility] Bilirubin, Urine Negative Invalid Interpretation Code NEG;NEGATIVE [facility] Blood, Urine Trace Abnormal NEG;NEGATIVE [facility] Character Clear Invalid Interpretation Code [facility] Color Nom (U) Yellow Invalid Interpretation Code [facility] Glucose Ql (U) Negative Invalid Interpretation Code NEG;NEGATIVE mg/dL [facility] Interpretation and review of laboratory results Abnormal Invalid Interpretation Code [facility] Ketones Ql (U) Negative Invalid Interpretation Code NEGATIVE;NEG mg/dL [facility] Leukocyte esterase Test strip Ql (U) Small Abnormal Negative [facility] Nitrite, Urine Negative Invalid Interpretation Code NEG;NEGATIVE [facility] pH Test strip (U) 7.0 [pH] Invalid Interpretation Code [facility] Protein, Urine Negative Invalid Interpretation Code NEGATIVE;NEG mg/dL [facility] RBCs, Urine 3-5 Abnormal 0-3+;NS /HPF [facility] Specific [place] 1.015 Invalid Interpretation Code [facility] Squamous Epithelial 25-40 Abnormal 0-3+;NS /HPF [facility] Urobilinogen, Urine 1.0 EU/dL High 0.2 [facility] WBCs, Urine 10-15 Abnormal 0-3+;3-5+;NS /HPF [facility] CBC and Differentialon 04-06 Basophils Auto #/vol (Bld) 0.0 10*3/uL Invalid Interpretation Code [facility] Basophils/100 WBC Auto (Bld) 0.3 % Invalid Interpretation Code [facility] Eosinophils Auto #/vol (Bld) 0.1 10*3/uL Invalid Interpretation Code [facility] Eosinophils/100 WBC Auto (Bld) 0.6 % Invalid Interpretation Code [facility] Erythrocyte distribution width Auto Ratio (RBC) 12.6 % Invalid Interpretation Code 10 - 14.4 % [facility] Hematocrit Auto Volume Fraction (Bld) 37.5 % Invalid Interpretation Code 34.4 - 44.8 % [facility] Hemoglobin mass conc (Bld) 13.3 g/dL Invalid Interpretation Code 11.6 - 15.4 g/dL [facility] Interpretation and review of laboratory results Abnormal Invalid Interpretation Code [facility] Lymphocytes Auto #/vol (Bld) 2.4 10*3/uL Invalid Interpretation Code [facility] Lymphocytes/100 WBC Auto (Bld) 22.8 % Invalid Interpretation Code [facility] MCH Auto Entitic mass (RBC) 31.0 pg Invalid Interpretation Code 27.9 - 33.9 pg [facility] MCHC Auto mass conc (RBC) 35.4 g/dL High 33.1 - 35.1 g/dL [facility] MCV Auto Entitic volume (RBC) 87.5 fL Invalid Interpretation Code [facility] Monocytes Auto #/vol (Bld) 0.7 10*3/uL High [facility] Monocytes/100 WBC Auto (Bld) 6.7 % Invalid Interpretation Code [facility] Neutrophils Auto #/vol (Bld) 7.4 10*3/uL High [facility] Platelet mean volume Auto Entitic volume (Bld) 9.7 fL Invalid Interpretation Code [facility] Platelets Auto #/vol (Bld) 205 10*3/uL Invalid Interpretation Code [facility] RBC Auto #/vol (Bld) 4.29 10*6/uL Invalid Interpretation Code [facility] Segmented Neut 69.6 % Invalid Interpretation Code [facility] WBC Auto #/vol (Bld) 10.7 10*3/uL High [facility] HCG, Urine Qualitativeon HCG.beta subunit ( test) Ql (U) Normal NEG [facility] Comment on above: Result Comment: Nega tiveFirst morning urine is the specimen of choice for urine test. False negative results can occur when random urine specimens are tested. A serum test is recommended if results do not correlate with the patient's clinical condition. XR ABDOMEN - SUPINEon 2017 XR ABDOMEN - SUPINE REASON FOR EXAM: constipation alternating with diarrhea ;Generalized abdominal painTECHNIQUE: XR ABDOMEN - SUPINECOMPARISON: Prior lumbar spine radiographs dated October 03, 2016FINDINGS:TUBES/LINES : None.LUNG BASES: Normal.BOWEL GAS PATTERN: Normal distribution of bowel gas. No dilated loops.STOOL VOLUME:* Ascending colon: Stool distending the bowel.* Transverse colon: Stool distending the bowel.* Descending colon: Stool within otherwise normal bowel.* Sigmoid colon and rectum: Stool within otherwise normal rectosigmoid colon.SOFT TISSUES: Normal.CALCIFICATIONS: None.BONES: Normal.IMPRESSION:Modera te quantity of stool in the ascending and transverse colon. Otherwisenormal abdominal radiograph.Interpreted by:Cedric Vogt MDSigned by: Cderic Vogt MD on 01/03/2018 2:25 PM Normal [facility] CBC and Differentialon 12-19 Basophils 0.4 % Invalid Interpretation Code [facility] Basophils 0.0 K/mcL Invalid Interpretation Code 0 - 0.2 [facility] Eosinophils 0.1 K/mcL Invalid Interpretation Code 0 - 0.5 [facility] Erythrocytes (RBC) 4.82 M/mcL Invalid Interpretation Code 3.7 - 5.0 [facility] Hematocrit (HCT) 42.7 % Invalid Interpretation Code 34.4 - 44.8 % [facility] Hemoglobin (HGB) 15.0 g/dL Invalid Interpretation Code 11.6 - 15.4 g/dL [facility] Interpretation and review of laboratory results Abnormal Invalid Interpretation Code [facility] Lymphocytes 3.3 K/mcL Invalid Interpretation Code 1.0 - 3.7 [facility] MCH 31.2 pg Invalid Interpretation Code 27.9 - 33.9 pg [facility] MCHC 35.2 g/dL High 33.1 - 35.1 g/dL [facility] MCV 88.7 fL Invalid Interpretation Code 82.6 - 98.9 [facility] Monocytes 0.8 K/mcL High 0.1 - 0.6 [facility] Neutrophils 5.9 K/mcL Invalid Interpretation Code 1.2 - 6.9 [facility] Platelet mean volume (PMV) 9.6 fL Invalid Interpretation Code 7.0 - 10.6 [facility] Platelets 271 K/mcL Invalid Interpretation Code 162 - 402 [facility] RDW-CA 12.8 % Invalid Interpretation Code 10 - 14.4 % [facility] Segmented Neut 58.8 % Invalid Interpretation Code [facility] T8 suppressor/100 cells 0.9 10*3/uL Invalid Interpretation Code [facility] T8 suppressor/100 cells 32.3 10*3/uL Invalid Interpretation Code [facility] T8 suppressor/100 cells 7.6 10*3/uL Invalid Interpretation Code [facility] WBC (Leukocytes) 10.1 K/mcL Invalid Interpretation Code 3.4 - 10.6 [facility] Comprehensive Metabolic Pane fermin 12-19-2017 Alanine aminotransferase (ALT) 31 U/L Invalid Interpretation Code 14 - 65 [facility] Albumin 4.1 g/dL Invalid Interpretation Code 3.2 - 4.5 g/dL [facility] Alkaline phosphatase (ALP) 70 U/L Invalid Interpretation Code 40 - 140 [facility] Aspartate aminotransferase (AST) 18 U/L Invalid Interpretation Code 0 - 45 [facility] Calcium 9.4 mg/dL Invalid Interpretation Code 8.4 - 10.2 mg/dL [facility] Chloride 108 mmol/L Invalid Interpretation Code 98 - 108 mmol/L [facility] CO2 26 mmol/L Invalid Interpretation Code 21 - 32 mmol/L [facility] Creatinine 0.82 mg/dL Invalid Interpretation Code 0.5 - 1 mg/dL [facility] eGFR (black) mL/min/{1.73_m2} Invalid Interpretation Code ml/min/1.73sq. m [facility] eGFR (non-black) mL/min/{1.73_m2} Invalid Interpretation Code ml/min/1.73sq. m [facility] Glucose 94 mg/dL Invalid Interpretation Code 70 - 99 mg/dL [facility] Potassium 3.7 mmol/L Invalid Interpretation Code 3.5 - 5.1 mmol/L [facility] Protein 7.7 g/dL Invalid Interpretation Code 6 - 8 g/dL [facility] Sodium 141 mmol/L Invalid Interpretation Code 135 - 145 mmol/L [facility] Urea nitrogen 10 mg/dL Invalid Interpretation Code 8 - 25 mg/dL [facility] Urine, bilirubin presence 0.4 mg/dL Invalid Interpretation Code 0.3 - 1.2 mg/dL [facility] Lipaseon 12-19-2017 Lipase 95 U/L Invalid Interpretation Code 73 - 393 U/L [facility] Preg test, Urine Qualon 11-22 Preg Test, Urine Qual Negative Invalid Interpretation Code Negative [facility] Urine with Indicated Culture on 12-19-2017 Bilirubin, Urine Negative Invalid Interpretation Code NEG;NEGATIVE [facility] Blood, Urine Trace Abnormal NEG;NEGATIVE [facility] Nitrite, Urine Negative Invalid Interpretation Code NEG;NEGATIVE [facility] Protein, Urine Negative Invalid Interpretation Code NEGATIVE;NEG mg/dL [facility] RBCs, Urine 0-3 Invalid Interpretation Code 0-3+;NS /HPF [facility] Squamous Epithelial 3-5 Abnormal 0-3+;NS /HPF [facility] Urine, bacteria in sediment Occasional Abnormal NS;RARE /HPF [facility] Urine, character Clear Invalid Interpretation Code [facility] Urine, color Yellow Invalid Interpretation Code [facility] Urine, glucose presence Negative Invalid Interpretation Code NEG;NEGATIVE mg/dL [facility] Urine, ketones presence Negative Invalid Interpretation Code NEGATIVE;NEG mg/dL [facility] Urine, leukocyte esterase presence Negative Invalid Interpretation Code Negative [facility] Urine, pH 7.0 [pH] Invalid Interpretation Code 4.5 - 8.0 [facility] Urine, specific gravity 1.020 1 Invalid Interpretation Code 1.003 - 1.029 [facility] Urobilinogen, Urine 0.2 EU/dL Invalid Interpretation Code 0.2 [facility] WBCs, Urine 0-3 Invalid Interpretation Code 0-3+;3-5+;NS /HPF [facility] hCG, Blood, Quantitativeon 0 10-08-2017 HCG, Quantitative < 1 Invalid Interpretation Code mIU/mL [facility] Vital Signs Date Time Vital Sign Value Performing Clinician Facility 01-30-2025 10:35-0400 Body height 152.[address] Kelsea Landers MD Work Phone: [facility] 01-30-2025 10:35-0400 Body mass index (BMI) [Ratio] 35.9 kg/m2 Dr. Kelsea Landers MD Work Phone: [facility] 01-30-2025 10:35-0400 Body weight 83.[address] Kelsea Landers MD Work Phone: [facility] 01-30-2025 10:35-0400 Diastolic blood pressure 81 mm[Hg] Dr. Kelsea Landers MD Work Phone: [facility] 01-30-2025 10:35-0400 Systolic blood pressure 114 mm[Hg] Dr. Kelsea Landers MD Work Phone: [facility] 01-13-2025 11:06-0400 Body mass index (BMI) [Ratio] 36.6 kg/m2 Dr. Kelsea Landers MD Work Phone: [facility] 01-13-2025 11:06-0400 Body weight 85.[address] Kelsea Landers MD Work Phone: [facility] 01-13-2025 11:06-0400 Diastolic blood pressure 80 mm[Hg] Dr. Kelsea Landers MD Work Phone: [facility] 01-13-2025 11:06-0400 Systolic blood pressure 110 mm[Hg] Dr. Kelsea Landers MD Work Phone: [facility] 11-01-2024 19:12-0400 Body height 165.1 cm Osmar Galkipia [employer] Work Phone: [facility] 11-01-2024 19:12-0400 Body mass index (BMI) [Ratio] 34.58 kg/m2 Osmar Galownia [employer] OPERATOR[employer]PER[employer] Work Phone: [facility] 11-01-2024 19:12-0400 Body temperature 98.29 [degF] Osmar Galownia H[employer] OPERATOR[employer]PER[employer] Work Phone: [facility] 11-01-2024 19:12-0400 Body weight 94.26 kg Osmar Galownia [employer] OPERATOR[employer]PER[employer] Work Phone: [facility] 11-01-2024 19:12-0400 Diastolic blood pressure 54 mm[Hg] Osmar Jenniferia H[employer] OPERATOR[employer]PER[employer]OR Work Phone: [facility] 11-01-2024 19:12-0400 Heart rate 74 /min Osmar Padilla [employer] OPERATOR[employer]PER[employer]OR Work Phone: [facility] 11-01-2024 19:12-0400 Respiratory rate 16 /min Osmar Randy [employer] OPERATOR[employer]PER[employer]OR Work Phone: [facility] 11-01-2024 19:12-0400 SaO2% (BldA) [Mass fraction] 97 % Osmar Padilla [employer] OPERATOR[employer]PER[employer]OR Work Phone: [facility] 11-01-2024 19:12-0400 Systolic blood pressure 99 mm[Hg] Osmar Padilla [employer] OPERATOR[employer]PER[employer] Work Phone: [facility] 09-18-2024 12:01-0500 Body mass index (BMI) [Ratio] 39.21 kg/m2 Loreto Maojasper DO Work Phone: [facility] 09-18-2024 12:01-0500 Body temperature 97.9 [degF] Loreto Thompson DO Work Phone: [facility] 09-18-2024 12:01-0500 Body weight 94.12 kg Loreto Maojasper DO Work Phone: [facility] 09-18-2024 12:01-0500 Diastolic blood pressure 73 mm[Hg] Loreto Thompson DO Work Phone: [facility] 09-18-2024 12:01-0500 Heart rate 85 /min Loreto Thompson DO Work Phone: [facility] 09-18-2024 12:01-0500 Respiratory rate 16 /min Loreto Thompson DO Work Phone: [facility] 09-18-2024 12:01-0500 SaO2% (BldA) [Mass fraction] 98 % oLreto Thompson DO Work Phone: [facility] 09-18-2024 12:01-0500 Systolic blood pressure 104 mm[Hg] Loreto Thompson DO Work Phone: [facility] 09-04-2024 09:19-0500 Diastolic blood pressure 75 mm[Hg] Loreto Hayes MD Work Phone: [facility] 09-04-2024 09:19-0500 Heart rate 106 /min Loreto Hayes MD Work Phone: [facility] 09-04-2024 09:19-0500 SaO2% (BldA) [Mass fraction] 98 % Loreto Hayes MD Work Phone: [facility] 09-04-2024 09:19-0500 Systolic blood pressure 107 mm[Hg] Loreto Hayes MD Work Phone: [facility] 09-04-2024 09:08-0500 Body height 154.9 cm Loreto Hayes MD Work Phone: [facility] 09-04-2024 09:08-0500 Body mass index (BMI) [Ratio] 39.68 kg/m2 Loreto Hayes MD Work Phone: [facility] 09-04-2024 09:08-0500 Body weight 95.25 kg Loreto Hayes MD Work Phone: [facility] 08-07-2024 09:39-0500 Body height 154.9 cm Candis Saunders CNP Work Phone: [facility] 08-07-2024 09:39-0500 Body mass index (BMI) [Ratio] 39.34 kg/m2 Candis Saunders CNP Work Phone: [facility] 08-07-2024 09:39-0500 Body temperature 98.01 [degF] Candis Saunders CNP Work Phone: [facility] 08-07-2024 09:39-0500 Body weight 94.44 kg Candis Saunders CNP Work Phone: [facility] 08-07-2024 09:39-0500 Diastolic blood pressure 80 mm[Hg] Candis Saunders CNP Work Phone: [facility] 08-07-2024 09:39-0500 Heart rate 96 /min Candis Saunders CNP Work Phone: [facility] 08-07-2024 09:39-0500 Respiratory rate 16 /min Candis Yusufeder [employer] SUPER[employer]OR Work Phone: [facility] 08-07-2024 09:39-0500 SaO2% (BldA) [Mass fraction] 98 % Candis Mike [employer]PER[employer]OR Work Phone: [facility] 08-07-2024 09:39-0500 Systolic blood pressure 110 mm[Hg] Candis Mike [employer] Work Phone: [facility] 08-04-2024 09:31-0500 Body mass index (BMI) [Ratio] 39.24 kg/m2 Joshua Masimore CNM Work Phone: [facility] 08-04-2024 09:31-0500 Body weight 94.21 kg Joshua Masimore CNM Work Phone: [facility] 08-04-2024 09:31-0500 Diastolic blood pressure 71 mm[Hg] Joshua Masimore CNM Work Phone: [facility] 08-04-2024 09:31-0500 Heart rate 85 /min Joshua Masimore CNM Work Phone: [facility] 08-04-2024 09:31-0500 Systolic blood pressure 107 mm[Hg] Joshua Masimore CNM Work Phone: [facility] 03-06-2024 09:11-0400 Body height 152.4 cm Candis Mike [employer]PER[employer]OR Work Phone: [facility] 03-06-2024 09:11-0400 Body mass index (BMI) [Ratio] 40.04 kg/m2 Candis Mike [employer] Work Phone: [facility] 03-06-2024 09:11-0400 Body weight 92.99 kg Candis Mike [employer]OR Work Phone: [facility] 03-06-2024 09:11-0400 Diastolic blood pressure 67 mm[Hg] Candis Saunders [employer] Work Phone: [facility] 03-06-2024 09:11-0400 Heart rate 90 /min Candis Saunders CNP Work Phone: [facility] 03-06-2024 09:11-0400 SaO2% (BldA) [Mass fraction] 98 % Candis Saunders CNP Work Phone: [facility] 03-06-2024 09:11-0400 Systolic blood pressure 91 mm[Hg] Candis Saunders CNP Work Phone: [facility] 02-14-2024 18:23-0400 Body height 157.5 cm Mirtha Cho H[employer] OPERATOR[employer]PER[employer]OR Work Phone: [employer] [facility] 02-14-2024 18:23-0400 Body mass index (BMI) [Ratio] 37.42 kg/m2 Mirtha Cho H[employer] OPERATOR[employer]PER[employer]OR Work Phone: [employer] [facility] 02-14-2024 18:23-0400 Body temperature 97.11 [degF] Mirtha Cho H[employer] OPERATOR[employer]PER[employer]OR Work Phone: [employer] [facility] 02-14-2024 18:23-0400 Body weight 92.81 kg Mirtha Cho H[employer] OPERATOR[employer]PER[employer]OR Work Phone: [employer] [facility] 02-14-2024 18:23-0400 Diastolic blood pressure 66 mm[Hg] Mirtha Cho H[employer] OPERATOR[employer] SUPER[employer]OR Work Phone: [employer] [facility] 02-14-2024 18:23-0400 Heart rate 99 /min Mirtha Cho H[employer] OPERATOR[employer] SUPER[employer]OR Work Phone: [employer] [facility] 02-14-2024 18:23-0400 Respiratory rate 16 /min Mirtha Cho H[employer] OPERATOR[employer]PER[employer]OR Work Phone: [employer] [facility] 02-14-2024 18:23-0400 SaO2% (BldA) [Mass fraction] 98 % Mirtha Cho H[employer] OPERATOR[employer]PER[employer]OR Work Phone: [employer] [facility] 02-14-2024 18:23-0400 Systolic blood pressure 99 mm[Hg] Mirtha Cho H[employer] OPERATOR[employer] SUPER[employer]OR Work Phone: [facility] 01-16-2024 08:25-0400 Diastolic blood pressure 72 mm[Hg] April Bull H[employer] CAR OPERATOR[employer] SUPER[employer]OR Work Phone: [facility] 01-16-2024 08:25-0400 Heart rate 94 /min April Bull H[employer] OPERATOR[employer]PER[employer]OR Work Phone: [facility] 01-16-2024 08:25-0400 Systolic blood pressure 100 mm[Hg] April Bull H[employer] OPERATOR[employer]PER[employer]OR Work Phone: [facility] 01-16-2024 08:05-0400 Body height 149.9 cm April Bull H[employer] OPERATOR[employer]PER[employer]OR Work Phone: [facility] 01-16-2024 08:05-0400 Body mass index (BMI) [Ratio] 41 kg/m2 April Bull H[employer] OPERATOR[employer]PER[employer]OR Work Phone: [facility] 01-16-2024 08:05-0400 Body weight 92.08 kg April Bull H[employer] OPERATOR[employer] SUPER[employer]OR Work Phone: [facility] 01-16-2024 08:05-0400 Respiratory rate 16 /min April Bull H[employer] OPERATOR[employer] SUPER[employer]OR Work Phone: [facility] 01-16-2024 08:05-0400 SaO2% (BldA) [Mass fraction] 98 % April Bull H[employer] OPERATOR[employer]PER[employer]OR Work Phone: [facility] 09-19-2023 09:16-0500 Body height 149.9 cm Candis Saunders CNP Work Phone: [facility] 09-19-2023 09:16-0500 Body mass index (BMI) [Ratio] 41.2 kg/m2 Candis Saunders CNP Work Phone: [facility] 09-19-2023 09:16-0500 Body weight 92.53 kg Candis Saunders CNP Work Phone: [facility] 09-19-2023 09:16-0500 Diastolic blood pressure 69 mm[Hg] Candis Saunders [employer]OR Work Phone: [facility] 09-19-2023 09:16-0500 Heart rate 84 /min Candis Saunders [employer]PER[employer]OR Work Phone: [facility] 09-19-2023 09:16-0500 Respiratory rate 16 /min Candis Saunders [employer]PER[employer]OR Work Phone: [facility] 09-19-2023 09:16-0500 SaO2% (BldA) [Mass fraction] 98 % Candis Saunders [employer]PER[employer]OR Work Phone: [facility] 09-19-2023 09:16-0500 Systolic blood pressure 101 mm[Hg] Candis Saunders [employer]PER[employer]OR Work Phone: [facility] 09-02-2023 08:37-0500 Body height 149.9 cm Jacque Singh PA-C Work Phone: [facility] 09-02-2023 08:37-0500 Body mass index (BMI) [Ratio] 41.61 kg/m2 Jacque Mckeonman PA-C Work Phone: [facility] 09-02-2023 08:37-0500 Body temperature 96.1 [degF] Jacque Mckeonman PA-C Work Phone: [facility] 09-02-2023 08:37-0500 Body weight 93.44 kg Jacque Singh PA-C Work Phone: [facility] 09-02-2023 08:37-0500 Diastolic blood pressure 70 mm[Hg] Jacque Singh PA-C Work Phone: [facility] 09-02-2023 08:37-0500 Heart rate 89 /min Jacque Mckeonman PA-C Work Phone: [facility] 09-02-2023 08:37-0500 Respiratory rate 16 /min Jacque Singh PA-C Work Phone: [facility] 09-02-2023 08:37-0500 SaO2% (BldA) [Mass fraction] 97 % Jacque Singh PA-C Work Phone: [facility] 09-02-2023 08:37-0500 Systolic blood pressure 112 mm[Hg] Jacque Singh PA-C Work Phone: [facility] 08-21-2023 13:07-0500 Body height 149.9 cm Candis Saunders CNP Work Phone: [facility] 08-21-2023 13:07-0500 Body mass index (BMI) [Ratio] 41.61 kg/m2 Candis Saunders CNP Work Phone: [facility] 08-21-2023 13:07-0500 Body weight 93.44 kg Candis Mike GARCIA Work Phone: [facility] 08-21-2023 13:07-0500 Diastolic blood pressure 77 mm[Hg] Candis Mike GARCIA Work Phone: [facility] 08-21-2023 13:07-0500 Heart rate 78 /min Candis Yusufines GARCIA Work Phone: [facility] 08-21-2023 13:07-0500 SaO2% (BldA) [Mass fraction] 98 % Candis Mike GARCIA Work Phone: [facility] 08-21-2023 13:07-0500 Systolic blood pressure 111 mm[Hg] Candis Saunders CNP Work Phone: [facility] 05-14-2023 12:29-0400 Body height 149.9 cm Dang Urbina [employer]PER[employer]OR Work Phone: [facility] 05-14-2023 12:29-0400 Body mass index (BMI) [Ratio] 41.81 kg/m2 Dang Guerrerois [employer]PER[employer]OR Work Phone: [facility] 05-14-2023 12:29-0400 Body temperature 97.7 [degF] Dang Guerrerois [employer]PER[employer]OR Work Phone: [facility] 05-14-2023 12:29-0400 Body weight 93.89 kg Dang Urbina [employer] SUPER[employer]OR Work Phone: [facility] 05-14-2023 12:29-0400 Diastolic blood pressure 73 mm[Hg] Dang Guerrerois [employer] SUPER[employer]OR Work Phone: [facility] 05-14-2023 12:29-0400 Heart rate 71 /min Dang Guerrerois [employer] SUPER[employer]OR Work Phone: [facility] 05-14-2023 12:29-0400 Respiratory rate 14 /min Dang Guerrerois [employer] SUPER[employer]OR Work Phone: [facility] 05-14-2023 12:29-0400 SaO2% (BldA) [Mass fraction] 97 % Dang Guerrerois [employer] SUPER[employer]OR Work Phone: [facility] 05-14-2023 12:29-0400 Systolic blood pressure 106 mm[Hg] Dang Guerrerois [employer] SUPER[employer]OR Work Phone: [facility] 04-05-2023 19:32-0400 Body height 153.7 cm Slime Lowe [employer] SUPER[employer]OR Work Phone: [facility] 04-05-2023 19:32-0400 Body mass index (BMI) [Ratio] 39.76 kg/m2 Slime Lowe [employer]PER[employer]OR Work Phone: [facility] 04-05-2023 19:32-0400 Body temperature 99.19 [degF] Slime Lowe [employer]PER[employer]OR Work Phone: [facility] 04-05-2023 19:32-0400 Body weight 93.89 kg Slime Lowe [employer] SUPER[employer]OR Work Phone: [facility] 04-05-2023 19:32-0400 Diastolic blood pressure 77 mm[Hg] Slime Lowe [employer] SUPER[employer]OR Work Phone: [facility] 04-05-2023 19:32-0400 Heart rate 93 /min Slimeyobany Lowe [employer] SUPER[employer]OR Work Phone: [facility] 04-05-2023 19:32-0400 Respiratory rate 16 /min Slimeyobany Lowe [employer] SUPER[employer]OR Work Phone: [facility] 04-05-2023 19:32-0400 SaO2% (BldA) [Mass fraction] 95 % Slime Lowe [employer] SUPER[employer]OR Work Phone: [facility] 04-05-2023 19:32-0400 Systolic blood pressure 109 mm[Hg] Slime Lowe [employer] SUPER[employer]OR Work Phone: [facility] 03-22-2023 00:39-0400 Diastolic blood pressure 79 mm[Hg] Vee Marker DO Work Phone: [employer] [facility] 03-22-2023 00:39-0400 Heart rate 107 /min Vee Marker DO Work Phone: [employer] [facility] 03-22-2023 00:39-0400 Respiratory rate 16 /min Vee Marker DO Work Phone: [email or web address] [facility] 03-22-2023 00:39-0400 Systolic blood pressure 124 mm[Hg] Vee Marker DO Work Phone: [facility] 03-21-2023 23:20-0400 SaO2% (BldA) [Mass fraction] 98 % Vee Marker DO Work Phone: [facility] [email or web address] [facility] 03-21-2023 20:19-0400 Body height 149.9 cm Vee Marker DO [facility] 03-21-2023 20:19-0400 Body mass index (BMI) [Ratio] 42.82 kg/m2 Vee Marker DO Work Phone: [email or web address] [facility] 03-21-2023 20:19-0400 Body weight 96.16 kg Vee Marker DO Work Phone: [employer] [facility] 03-21-2023 20:18-0400 Body temperature 98.91 [degF] Vee Marker DO Work Phone: [facility] 12-25-2022 10:18-0400 Body height 149.9 cm Dang Urbina CNP Work Phone: [facility] 12-25-2022 10:18-0400 Body mass index (BMI) [Ratio] 41.2 kg/m2 Dang Urbina [employer] SUPER[employer]OR Work Phone: [facility] 12-25-2022 10:18-0400 Body temperature 98.29 [degF] Dang Urbina [employer] SUPER[employer]OR Work Phone: [facility] 12-25-2022 10:18-0400 Body weight 92.53 kg Dang Urbina [employer] SUPER[employer]OR Work Phone: [facility] 12-25-2022 10:18-0400 Diastolic blood pressure 70 mm[Hg] Dang Urbina [employer] SUPER[employer]OR Work Phone: [facility] 12-25-2022 10:18-0400 Heart rate 98 /min Dang Urbina [employer] SUPER[employer]OR Work Phone: [facility] 12-25-2022 10:18-0400 Respiratory rate 16 /min Dang Urbina [employer] SUPER[employer]OR Work Phone: [facility] 12-25-2022 10:18-0400 SaO2% (BldA) [Mass fraction] 97 % Dang Urbina [employer] SUPER[employer]OR Work Phone: [facility] 12-25-2022 10:18-0400 Systolic blood pressure 93 mm[Hg] Dang Urbina [employer] SUPER[employer]OR Work Phone: [facility] 05-14-2022 14:02-0400 Body temperature 97.88 [degF] Juan Riggins Other Phone: [facility] 05-14-2022 14:02-0400 Diastolic blood pressure 71 mm[Hg] Juan Lorenzo Other Phone: [facility] 05-14-2022 14:02-0400 Heart rate 70 /min Juan Riggins Other Phone: [facility] 05-14-2022 14:02-0400 Respiratory rate 18 /min Juan Lorenzo Other Phone: [facility] 05-14-2022 14:02-0400 SaO2% (BldA) [Mass fraction] 98 % Juan Lorenzo Other Phone: [facility] 05-14-2022 14:02-0400 Systolic blood pressure 125 mm[Hg] Juan Riggins Other Phone: [facility] 05-09-2022 20:39-0400 Diastolic blood pressure 94 mm[Hg] Juan Riggins Other Phone: [facility] 05-09-2022 20:39-0400 Heart rate 55 /min Juan Lorenzo Other Phone: [facility] 05-09-2022 20:39-0400 Respiratory rate 16 /min Juan Lorenzo Other Phone: [facility] 05-09-2022 20:39-0400 SaO2% (BldA) [Mass fraction] 97 % Juan Lorenzo Other Phone: [facility] 05-09-2022 20:39-0400 Systolic blood pressure 137 mm[Hg] Juan Lorenzo Other Phone: [facility] 05-09-2022 16:34-0400 Body height 149.8 cm Juan Riggins Other Phone: [facility] 05-09-2022 16:34-0400 Body temperature 97.16 [degF] Juan Riggins Other Phone: [facility] 05-09-2022 16:34-0400 Body weight 83.6 kg Juan Lorenzo Other Phone: [facility] 04-25-2022 14:38-0400 Body height 149.86 cm Juan E Riggins Work Phone: [address] Work Phone: 04-25-2022 14:38-0400 Body mass index (BMI) [Ratio] 40.62 kg/m2 Juan E Lorenzo Work Phone: [address] Work Phone: 04-25-2022 14:38-0400 Body surface area Derived from formula 1.85 m2 Juan E Riggins Work Phone: [address] Work Phone: 04-25-2022 14:38-0400 Body weight 91.23 kg Juan E Lorenzo Work Phone: [address] Work Phone: 04-25-2022 14:38-0400 Diastolic blood pressure 78 mm[Hg] Juan E Lorenzo Work Phone: [address] Work Phone: 04-25-2022 14:38-0400 Systolic blood pressure 110 mm[Hg] Juan E Riggins Work Phone: [address] Work Phone: 04-18-2022 14:49-0400 Body height 149.86 cm Juan E Riggins Work Phone: [address] Work Phone: 04-18-2022 14:49-0400 Body mass index (BMI) [Ratio] 40.16 kg/m2 Juan E Lorenzo Work Phone: [address] Work Phone: 04-18-2022 14:49-0400 Body surface area Derived from formula 1.84 m2 Juan E Lorenzo Work Phone: [address] Work Phone: 04-18-2022 14:49-0400 Body weight 90.2 kg Juan E Riggins Work Phone: [address] Work Phone: 04-18-2022 14:49-0400 Diastolic blood pressure 90 mm[Hg] Juan E Riggins Work Phone: [address] Work Phone: 04-18-2022 14:49-0400 Systolic blood pressure 124 mm[Hg] Juan E Riggins Work Phone: [address] Work Phone: 04-12-2022 13:56-0400 Body height 149.86 cm Juan E Riggins Work Phone: [address] Work Phone: 04-12-2022 13:56-0400 Body mass index (BMI) [Ratio] 39.41 kg/m2 Juan E Lorenzo Work Phone: [address] Work Phone: 04-12-2022 13:56-0400 Body surface area Derived from formula 1.82 m2 Juan E Lorenzo Work Phone: [address] Work Phone: 04-12-2022 13:56-0400 Body weight 88.5 kg Juan E Riggins Work Phone: [address] Work Phone: 04-12-2022 13:56-0400 Diastolic blood pressure 80 mm[Hg] Juan E Lorenzo Work Phone: [address] Work Phone: 04-12-2022 13:56-0400 Systolic blood pressure 110 mm[Hg] Juan E Lorenzo Work Phone: [address] Work Phone: 04-04-2022 15:02-0400 Body height 149.86 cm Juan E Lorenzo [facility] Work Phone: 04-04-2022 15:02-0400 Body mass index (BMI) [Ratio] 39.84 kg/m2 Juan E Lorenzo Work Phone: [facility] Raul 3 DO Work Phone: 04-04-2022 15:02-0400 Body surface area Derived from formula 1.83 m2 Juan E Riggins Work Phone: [facility] Raul 3 DO Work Phone: 04-04-2022 15:02-0400 Body weight 89.47 kg Juan E Riggins Work Phone: [facility] Raul 3 DO Work Phone: 04-04-2022 15:02-0400 Diastolic blood pressure 66 mm[Hg] Juan E Riggins Work Phone: [facility] Raul 3 DO Work Phone: 04-04-2022 15:02-0400 Heart rate 86 /min Juan E Lorenzo Work Phone: [facility] Raul 3 DO Work Phone: 04-04-2022 15:02-0400 Systolic blood pressure 104 mm[Hg] Juan E Lorenzo Work Phone: [facility] Raul 3 DO Work Phone: 04-03-2022 13:30-0400 Body height 149.86 cm Juan E Lorenzo Work Phone: [address] Work Phone: 04-03-2022 13:30-0400 Diastolic blood pressure 80 mm[Hg] Juan E Riggins Work Phone: [address] Work Phone: 04-03-2022 13:30-0400 Systolic blood pressure 116 mm[Hg] Juan E Lorenzo Work Phone: [address] Work Phone: 03-29-2022 13:52-0400 Body height 149.86 cm Juan E Riggins Work Phone: [address] Work Phone: 03-29-2022 13:52-0400 Body mass index (BMI) [Ratio] 39.06 kg/m2 Juan E Lorenzo Work Phone: [address] Work Phone: 03-29-2022 13:52-0400 Body surface area Derived from formula 1.82 m2 Juan E Riggins Work Phone: [address] Work Phone: 03-29-2022 13:52-0400 Body weight 87.72 kg Juan E Riggins Work Phone: [address] Work Phone: 03-29-2022 13:52-0400 Diastolic blood pressure 78 mm[Hg] Juan E Lorenzo Work Phone: [address] Work Phone: 03-29-2022 13:52-0400 Systolic blood pressure 100 mm[Hg] Juan E Riggins Work Phone: [address] Work Phone: 03-22-2022 13:55-0400 Body height 149.86 cm Juan E Lorenzo Work Phone: [address] Work Phone: 03-22-2022 13:55-0400 Body mass index (BMI) [Ratio] 39.05 kg/m2 Juan E Lorenzo Work Phone: [address] Work Phone: 03-22-2022 13:55-0400 Body surface area Derived from formula 1.82 m2 Juan E Lorenzo Work Phone: [address] Work Phone: 03-22-2022 13:55-0400 Body weight 87.7 kg Juan E Riggins Work Phone: [address] Work Phone: 03-22-2022 13:55-0400 Diastolic blood pressure 80 mm[Hg] Juan E Lorenzo Work Phone: [address] Work Phone: 03-22-2022 13:55-0400 Systolic blood pressure 114 mm[Hg] Juan E Riggins Work Phone: [address] Work Phone: 03-15-2022 13:17-0400 Body height 149.86 cm Juan E Riggins Work Phone: [address] Work Phone: 03-15-2022 13:17-0400 Body mass index (BMI) [Ratio] 38.8 kg/m2 Juan E Lorenzo Work Phone: [address] Work Phone: 03-15-2022 13:17-0400 Body surface area Derived from formula 1.81 m2 Juan E Lorenzo Work Phone: [address] Work Phone: 03-15-2022 13:17-0400 Body weight 87.15 kg Juan E Riggins Work Phone: [address] Work Phone: 03-15-2022 13:17-0400 Diastolic blood pressure 78 mm[Hg] Juan E Lorenzo Work Phone: [place] [address] [address] Work Phone: 03-15-2022 13:17-0400 Systolic blood pressure 124 mm[Hg] Juan E Lorenzo Work Phone: [place] [address] [address] Work Phone: 03-08-2022 13:32-0400 Body height 149.86 cm Juan E Lorenzo Work Phone: [place] [address] [address] Work Phone: 03-08-2022 13:32-0400 Body mass index (BMI) [Ratio] 39.09 kg/m2 Juan E Riggins Work Phone: [address] Work Phone: 03-08-2022 13:32-0400 Body surface area Derived from formula 1.82 m2 Juan E Riggins Work Phone: [place] [address] [address] Work Phone: 03-08-2022 13:32-0400 Body weight 87.8 kg Juan E Lorenzo Work Phone: [place] [address] [address] Work Phone: 03-08-2022 13:32-0400 Diastolic blood pressure 78 mm[Hg] Juan E Riggins Work Phone: [place] [address] [address] Work Phone: 03-08-2022 13:32-0400 Systolic blood pressure 112 mm[Hg] Juan E Riggins Work Phone: [place] [address] [address] Work Phone: 02-22-2022 13:11-0400 Body height 149.86 cm Juan E Lorenzo Work Phone: [address] Work Phone: 02-22-2022 13:11-0400 Body mass index (BMI) [Ratio] 38.2 kg/m2 Juan E Riggins Work Phone: [address] Work Phone: 02-22-2022 13:11-0400 Body surface area Derived from formula 1.8 m2 Juan E Riggins Work Phone: [address] Work Phone: 02-22-2022 13:11-0400 Body weight 85.79 kg Juan E Lorenzo Work Phone: [address] Work Phone: 02-22-2022 13:11-0400 Diastolic blood pressure 70 mm[Hg] Juan E Riggins Work Phone: [address] Work Phone: 02-22-2022 13:11-0400 Systolic blood pressure 104 mm[Hg] Juan E Riggins Work Phone: [address] Work Phone: 01-27-2022 14:44-0400 Body height 149.86 cm Juan E Riggins Work Phone: [address] Work Phone: 01-27-2022 14:44-0400 Body mass index (BMI) [Ratio] 38.2 kg/m2 Juan E Lorenzo Work Phone: [address] Work Phone: 01-27-2022 14:44-0400 Body surface area Derived from formula 1.8 m2 Juan E Lorenzo Work Phone: [address] Work Phone: 01-27-2022 14:44-0400 Body weight 85.79 kg Juan E Riggins Work Phone: [address] Work Phone: 01-27-2022 14:44-0400 Diastolic blood pressure 72 mm[Hg] Juan E Lorenzo Work Phone: [address] Work Phone: 01-27-2022 14:44-0400 Systolic blood pressure 110 mm[Hg] Juan E Riggins Work Phone: [address] Work Phone: 12-23-2021 15:09-0400 Body height 149.86 cm Juan E Riggins Work Phone: [address] Work Phone: 12-23-2021 15:09-0400 Body mass index (BMI) [Ratio] 38.78 kg/m2 Juan E Riggins Work Phone: [address] Work Phone: 12-23-2021 15:09-0400 Body surface area Derived from formula 1.81 m2 Juan E Lorenzo Work Phone: [address] Work Phone: 12-23-2021 15:09-0400 Body weight 87.09 kg Juan E Lorenzo Work Phone: [address] Work Phone: 12-23-2021 15:09-0400 Diastolic blood pressure 72 mm[Hg] Juan E Lorenzo Work Phone: [address] Work Phone: 12-23-2021 15:09-0400 Systolic blood pressure 112 mm[Hg] Juan E Lorenzo Work Phone: [address] Work Phone: 11-25-2021 10:59-0400 Body height 149.86 cm Juan E Lorenzo Work Phone: [place] [address] [address] Work Phone: 11-25-2021 10:59-0400 Body mass index (BMI) [Ratio] 38.61 kg/m2 Juan E Riggins Work Phone: [place] [address] [address] Work Phone: 11-25-2021 10:59-0400 Body surface area Derived from formula 1.81 m2 Juan E Riggins Work Phone: [place] [address] [address] Work Phone: 11-25-2021 10:59-0400 Body weight 86.7 kg Juan E Riggins Work Phone: [address] Work Phone: 11-25-2021 10:59-0400 Diastolic blood pressure 64 mm[Hg] Juan E Riggins Work Phone: [place] [address] [address] Work Phone: 11-25-2021 10:59-0400 Systolic blood pressure 112 mm[Hg] Juan E Riggins Work Phone: [place] [address] [address] Work Phone: 11-25-2021 10:56-0400 Body height 149.86 cm Juan E Lorenzo Work Phone: [place] [address] [address] Work Phone: 10-28-2021 11:56-0400 Body height 149.86 cm Juan E Lorenzo Work Phone: [place] [address] [address] Work Phone: 10-28-2021 11:56-0400 Body mass index (BMI) [Ratio] 38.43 kg/m2 Juan E Riggins Work Phone: [place] [address] [address] Work Phone: 10-28-2021 11:56-0400 Body surface area Derived from formula 1.81 m2 Juan E Riggins Work Phone: [place] [address] [address] Work Phone: 10-28-2021 11:56-0400 Body weight 86.3 kg Juan E Riggins Work Phone: [place] [address] [address] Work Phone: 10-28-2021 11:56-0400 Diastolic blood pressure 78 mm[Hg] Juan E Riggins Work Phone: [address] Work Phone: 10-28-2021 11:56-0400 Systolic blood pressure 118 mm[Hg] Juan E Lorenzo Work Phone: [address] Work Phone: 09-28-2021 10:07-0500 Body height 149.86 cm Juan E Riggins Work Phone: [address] Work Phone: 09-28-2021 10:07-0500 Body mass index (BMI) [Ratio] 39.05 kg/m2 Juan E Lorenzo Work Phone: [address] Work Phone: 09-28-2021 10:07-0500 Body surface area Derived from formula 1.82 m2 Juan E Riggins Work Phone: [place] [address] [address] Work Phone: 09-28-2021 10:07-0500 Body weight 87.7 kg Juan E Riggins Work Phone: [place] [address] [address] Work Phone: 09-28-2021 10:07-0500 Diastolic blood pressure 80 mm[Hg] Juan E Riggins Work Phone: [address] Work Phone: 09-28-2021 10:07-0500 Systolic blood pressure 112 mm[Hg] Juan E Riggins Work Phone: [address] Work Phone: 02-09-2021 10:42-0400 Body height 149.86 cm Juan E Lorenzo Work Phone: [address] Work Phone: 02-09-2021 10:42-0400 Body mass index (BMI) [Ratio] 36.47 kg/m2 Juan E Riggins Work Phone: [address] Work Phone: 02-09-2021 10:42-0400 Body surface area Derived from formula 1.77 m2 Juan Quinn Riggins Work Phone: [address] Work Phone: 02-09-2021 10:42-0400 Body temperature 96.9 [degF] Juan Chasezger Work Phone: [address] Work Phone: 02-09-2021 10:42-0400 Body weight 81.9 kg Juan Chasezger Work Phone: [address] Work Phone: 02-09-2021 10:42-0400 Diastolic blood pressure 78 mm[Hg] Juan E Lorenzo Work Phone: [address] Work Phone: 02-09-2021 10:42-0400 Systolic blood pressure 110 mm[Hg] Juan E Riggins Work Phone: [address] Work Phone: 06-28-2021 09:59-0400 Body height 149.86 cm Juan Chasezger Work Phone: [address] Work Phone: 01-17-2021 09:59-0400 Body mass index (BMI) [Ratio] 36.91 kg/m2 Juan E Riggins Work Phone: [address] Work Phone: 01-17-2021 09:59-0400 Body surface area Derived from formula 1.77 m2 Juan Chasezger Work Phone: [address] Work Phone: 01-17-2021 09:59-0400 Body temperature 97.3 [degF] Juan Chasezger Work Phone: [address] Work Phone: 01-17-2021 09:59-0400 Body weight 82.9 kg Juan Chasezger Work Phone: [address] Work Phone: 01-17-2021 09:59-0400 Diastolic blood pressure 74 mm[Hg] Juan Quinn Lorenzo Work Phone: [address] Work Phone: 01-17-2021 09:59-0400 Systolic blood pressure 118 mm[Hg] Juan E Lorenzo Work Phone: [address] Work Phone: 01-13-2021 19:14-0400 Diastolic blood pressure 74 mm[Hg] Luigi Justin MD Work Phone: [facility] 01-13-2021 19:14-0400 Heart rate 70 /min Luigi Justin MD Work Phone: [facility] 01-13-2021 19:14-0400 Respiratory rate 16 /min Luigi Justin MD Work Phone: [facility] 01-13-2021 19:14-0400 SaO2% (BldA) [Mass fraction] 99 % Luigi Justin MD Work Phone: [facility] 01-13-2021 19:14-0400 Systolic blood pressure 105 mm[Hg] Luigi Justin MD Work Phone: [facility] 01-13-2021 17:05-0400 Body height 149.9 cm Luigi Justin MD Work Phone: [facility] 01-13-2021 17:05-0400 Body mass index (BMI) [Ratio] 35.95 kg/m2 Luigi Justin MD Work Phone: [facility] 01-13-2021 17:05-0400 Body temperature 98.4 [degF] Luigi Justin MD Work Phone: [facility] 01-13-2021 17:05-0400 Body weight 80.74 kg Luigi Justin MD Work Phone: [facility] 11-29-2020 22:14-0400 Body temperature 98.29 [degF] Vazquez Keanu DO Work Phone: [facility] 11-29-2020 22:14-0400 Diastolic blood pressure 81 mm[Hg] Vazquez Keanu DO Work Phone: [facility] 11-29-2020 22:14-0400 Heart rate 77 /min Vazquez Keanu DO Work Phone: [facility] 11-29-2020 22:14-0400 Respiratory rate 18 /min Vazquez Keanu DO Work Phone: [facility] 11-29-2020 22:14-0400 SaO2% (BldA) [Mass fraction] 99 % Vazquez Keanu DO Work Phone: [facility] 11-29-2020 22:14-0400 Systolic blood pressure 123 mm[Hg] Vazquez Keanu DO Work Phone: [facility] 11-24-2020 16:08-0400 Body height 149.86 cm Darnell Odell DO [facility] [address] Work Phone: 11-24-2020 16:08-0400 Body mass index (BMI) [Ratio] 34.95 kg/m2 Darnellmike Odell DO [facility] [address] Work Phone: 11-24-2020 16:08-0400 Body surface area Derived from formula 1.73 m2 Darnell Chelan DO [facility] [address] [address] Work Phone: 11-24-2020 16:08-0400 Body temperature 97.3 [degF] Darnell Odell DO [facility] [facility] [address] Work Phone: 11-24-2020 16:08-0400 Body weight 78.5 kg Darnellmike Odell DO [facility] [address] Work Phone: 11-24-2020 16:08-0400 Diastolic blood pressure 80 mm[Hg] Darnell Odell DO [facility] [address] [address] Work Phone: 11-24-2020 16:08-0400 Systolic blood pressure 122 mm[Hg] Darnell Odell DO [facility] [address] [address] Work Phone: 08-28-2020 19:30-0500 BMI (Body Mass Index) 38.78 kg/m2 [facility] 08-28-2020 19:30-0500 Body Temperature 98.2 [degF] [facility] 08-28-2020 19:30-0500 Body weight 87.09 kg [facility] 08-28-2020 19:30-0500 BP Diastolic 76 mm[Hg] [facility] 08-28-2020 19:30-0500 BP Systolic 116 mm[Hg] [facility] 08-28-2020 19:30-0500 Height 149.9 cm [facility] 08-28-2020 19:30-0500 Pulse (Heart Rate) 94 /min [facility] 08-28-2020 19:30-0500 Pulse Oximetry 95 % [facility] 08-28-2020 19:30-0500 Respiratory Rate 20 /min Brie Odell [facility] 08-06-2020 16:55-0500 Respiratory Rate 16 /min [facility] 08-06-2020 14:52-0500 Body Temperature 98.6 [degF] Jennifer [facility] 08-06-2020 14:52-0500 BP Diastolic 81 mm[Hg] [facility] 08-06-2020 14:52-0500 BP Systolic 117 mm[Hg] [facility] 08-06-2020 14:52-0500 Pulse (Heart Rate) 87 /min [facility] 08-06-2020 14:52-0500 Pulse Oximetry 98 % [facility] [place] 08-05-2020 21:14-0500 BMI (Body Mass Index) 38.98 kg/m2 [facility] 08-05-2020 21:14-0500 Body weight 87.54 kg [facility] 08-05-2020 21:14-0500 Height 149.9 cm [facility] 04-12-2020 04:21-0400 BP Diastolic 76 mm[Hg] [facility] 04-12-2020 04:21-0400 BP Systolic 110 mm[Hg] [facility] 04-12-2020 04:21-0400 Pulse (Heart Rate) 77 /min [facility] 04-12-2020 04:21-0400 Pulse Oximetry 100 % [facility] 04-12-2020 04:21-0400 Respiratory Rate 16 /min [facility] 04-12-2020 01:23-0400 BMI (Body Mass Index) 37.37 kg/m2 [facility] 04-12-2020 01:23-0400 Body Temperature 99 [degF] [facility] 04-12-2020 01:23-0400 Body weight 83.[address] [facility] 04-12-2020 01:23-0400 Height 149[address] [facility] 04-09-2020 10:34-0400 Body height 149.86 cm Darnell Odell DO [facility] [address] Work Phone: 04-09-2020 10:34-0400 Body mass index (BMI) [Ratio] 37.65 kg/m2 Darnell Duy DO [facility] [address] Work Phone: 04-09-2020 10:34-0400 Body surface area Derived from formula 1.79 m2 Darnell Duy DO [facility] [address] Work Phone: 04-09-2020 10:34-0400 Body temperature 98.2 [degF] Darnell Chelan DO [facility] [address] Work Phone: Comment on above: Method: Temporal 04-09-2020 10:34-0400 Body weight 84.55 kg Darnell Chelan DO [facility] [address] Work Phone: 04-09-2020 10:34-0400 Diastolic blood pressure 80 mm[Hg] Darnell Duy DO [facility] [address] Work Phone: Comment on above: Location: LUE; Position: Sitting 04-09-2020 10:34-0400 Systolic blood pressure 112 mm[Hg] Darnell Duy DO [facility] [address] Work Phone: Comment on above: Location: LUE; Position: Sitting 03-31-2020 15:43-0400 Body height 149.86 cm Darnell Chelan DO [facility] [address] Work Phone: 03-31-2020 15:43-0400 Body mass index (BMI) [Ratio] 36.69 kg/m2 Darnell Chelan DO [facility] [address] Work Phone: 03-31-2020 15:43-0400 Body surface area Derived from formula 1.77 m2 Darnell Duy DO [facility] [address] Work Phone: 03-31-2020 15:43-0400 Body temperature 97.3 [degF] Darnell Chelan DO [facility] [address] Work Phone: Comment on above: Method: Temporal 03-31-2020 15:43-0400 Body weight 82.4 kg Darnell Chelan DO [employer] Work Phone: 03-31-2020 15:43-0400 Diastolic blood pressure 84 mm[Hg] Darnell Duy DO [employer] Work Phone: Comment on above: Location: LUE; Position: Sitting 03-31-2020 15:43-0400 Systolic blood pressure 110 mm[Hg] Darnell Chelan DO [employer] Work Phone: Comment on above: Location: LUE; Position: Sitting 03-28-2020 20:19-0400 BP Diastolic 59 mm[Hg] [facility] 03-28-2020 20:19-0400 BP Systolic 128 mm[Hg] [facility] 03-28-2020 20:19-0400 Pulse (Heart Rate) 88 /min [facility] 03-28-2020 20:19-0400 Pulse Oximetry 99 % [facility] 03-28-2020 20:19-0400 Respiratory Rate 16 /min [facility] 03-28-2020 17:55-0400 BMI (Body Mass Index) 36.36 kg/m2 [facility] 03-28-2020 17:55-0400 Body Temperature 98.01 [degF] [facility] 03-28-2020 17:55-0400 Body weight 81.65 kg [facility] 03-28-2020 17:55-0400 Height 149.9 cm [facility] 03-12-2020 10:47-0400 Body height 149.86 cm Darnell Chelan DO [employer] Work Phone: 03-12-2020 10:47-0400 Body mass index (BMI) [Ratio] 37.59 kg/m2 Darnell Chelan DO [employer] Work Phone: 03-12-2020 10:47-0400 Body surface area Derived from formula 1.79 m2 Darnell Duy DO [facility] [address] Work Phone: 03-12-2020 10:47-0400 Body temperature 97.7 [degF] Darnell Valenciair DO [facility] [address] Work Phone: 03-12-2020 10:47-0400 Body weight 84.43 kg Darnell Duy DO [facility] [address] Work Phone: 03-12-2020 10:47-0400 Diastolic blood pressure 80 mm[Hg] Darnellmike Valenciair DO [facility] [address] Work Phone: 03-12-2020 10:47-0400 Systolic blood pressure 116 mm[Hg] Darnell Valenciair DO [facility] [address] Work Phone: 02-03-2020 23:36-0400 BMI (Body Mass Index) 34.94 kg/m2 [facility] 02-03-2020 23:36-0400 Body Temperature 98.01 [degF] [facility] 02-03-2020 23:36-0400 Body weight 78.47 kg [facility] 02-03-2020 23:36-0400 BP Diastolic 70 mm[Hg] [facility] 02-03-2020 23:36-0400 BP Systolic 107 mm[Hg] [facility] 02-03-2020 23:36-0400 Height 149.9 cm [facility] 02-03-2020 23:36-0400 Pulse (Heart Rate) 98 /min [facility] 02-03-2020 23:36-0400 Pulse Oximetry 97 % [facility] 02-03-2020 23:36-0400 Respiratory Rate 16 /min [facility] 11-26-2019 02:55-0400 BP Diastolic 79 mm[Hg] [facility] 11-26-2019 02:55-0400 BP Systolic 120 mm[Hg] [facility] 11-26-2019 02:55-0400 Pulse (Heart Rate) 95 /min [facility] 11-26-2019 02:55-0400 Pulse Oximetry 99 % [facility] 11-26-2019 02:55-0400 Respiratory Rate 16 /min [facility] 11-25-2019 23:25-0400 BMI (Body Mass Index) 35.14 kg/m2 [facility] 11-25-2019 23:25-0400 Body Temperature 98.01 [degF] [facility] 11-25-2019 23:25-0400 Body weight 78.[address] [facility] 11-25-2019 23:25-04[address] [facility] 09-29-2019 05:06-0400 BP Diastolic 70 mm[Hg] [facility] 09-29-2019 05:06-0400 BP Systolic 118 mm[Hg] [facility] 09-29-2019 05:06-0400 Pulse (Heart Rate) 89 /min [facility] 09-29-2019 05:06-0400 Pulse Oximetry 98 % [facility] 09-29-2019 05:06-0400 Respiratory Rate 18 /min [facility] 09-29-2019 03:57-0400 BMI (Body Mass Index) 34.34 kg/m2 [facility] 09-29-2019 03:57-0400 Body weight 77.11 kg [facility] 09-29-2019 03:57-0400 Height 149.9 cm [facility] 09-29-2019 03:54-0400 Body Temperature 98.71 [degF] [facility] 05-02-2019 13:41-0400 BMI (Body Mass Index) 33.59 kg/m2 Marium Johnson [facility] 05-02-2019 13:41-0400 Body weight 78.02 kg Marium Johnson [facility] 05-02-2019 13:09-0400 Body Temperature 97.59 [degF] Marium Johnson [facility] 05-02-2019 13:09-0400 BP Diastolic 79 mm[Hg] Marium Johnson [facility] 05-02-2019 13:09-0400 BP Systolic 115 mm[Hg] Marium Johnson [facility] 05-02-2019 13:090400 Pulse (Heart Rate) 80 /min Marium Johnson [facility] 05-02-2019 13:09-0400 Pulse Oximetry 95 % Marium Johnson [facility] 05-02-2019 13:09-0400 Respiratory Rate 14 /min Marium Johnson [facility] 02-17-2019 12:56-0400 BMI (Body Mass Index) 33.2 kg/m2 [facility] 02-17-2019 12:56-0400 Body Temperature 97.59 [degF] [facility] 02-17-2019 12:56-0400 Body weight 77.11 kg [facility] 02-17-2019 12:56-0400 BP Diastolic 74 mm[Hg] [facility] 02-17-2019 12:56-0400 BP Systolic 122 mm[Hg] [facility] 02-17-2019 12:56-0400 Height 152.4 cm [facility] 02-17-2019 12:56-0400 Pulse (Heart Rate) 94 /min [facility] 02-17-2019 12:56-0400 Pulse Oximetry 98 % [facility] 02-17-2019 12:56-0400 Respiratory Rate 18 /min [facility] 01-12-2019 22:19-0400 BMI (Body Mass Index) 34.34 kg/m2 [facility] 01-12-2019 22:19-0400 Body Temperature 98.2 [degF] [facility] 01-12-2019 22:19-0400 BP Diastolic 71 mm[Hg] [facility] 01-12-2019 22:19-0400 BP Systolic 115 mm[Hg] [facility] 01-12-2019 22:19-0400 Height 149.9 cm [facility] 01-12-2019 22:19-0400 Pulse (Heart Rate) 83 /min [facility] 01-12-2019 22:19-0400 Pulse Oximetry 97 % [facility] 01-12-2019 22:19-0400 Respiratory Rate 18 /min [facility] 01-12-2019 22:19-0400 Weight 77.11 kg [facility] 11-22-2018 22:20-0400 BMI (Body Mass Index) 32.32 kg/m2 [facility] 11-22-2018 22:20-0400 Body Temperature 98.01 [degF] [facility] 11-22-2018 22:20-0400 Body weight 72.58 kg [facility] 11-22-2018 22:20-0400 BP Diastolic 78 mm[Hg] [facility] 11-22-2018 22:20-0400 BP Systolic 114 mm[Hg]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 Luigi Justin MD Work Phone: Start: 01-13-2021 Basic metabolic pane l calcium total Luigi Justin MD Work Phone: Start: 11-29-2020 Radiologic exam ches t single view Vazquez Colunga DO Work Phone: Start: 11-29-2020 SARS-CoV-2 (COVID-19 ) RdRp gene [Presence] in Respiratory specimen by BRANDI with probe detection Vazquez Colunga DO Work Phone: Start: 11-29-2020 End: 11-29-2020 Gonadotropin chorionic qualitative [facility] Start: 11-29-2020 Urnls dip stick/tabl et rgnt auto w/o microscopy [facility] Start: 11-29-2020 Ecg routine ecg w/le ast 12 lds w/i&r Vazquez Colunga DO Work Phone: Start: 08-28-2020 Eval c/v amniotic fl uid protein qual ea specimen Brie Stephany Cass Work Phone: Start: 08-28-2020 Urinalysis Brie Odell Work Phone: Start: 08-05-2020 COVID-19/INFLUENZA A ,B MOLECULAR Jennifer TenorioMaria Victoria Albina Work Phone: Start: 08-05-2020 Urinalysis Jennifer Ward. S. Albina Work Phone: Start: 04-12-2020 Us uterus 1 4 wk transabdl 07/23 gestat Varinder Kumarhi Work Phone: Start: 04-12-2020 Urinalysis Varinder Kumar navin Work Phone: Start: 04-12-2020 Choriogonadotropin [Units/volume] in Serum or Plasma Varinder Sienna Work Phone: Start: 04-12-2020 Complete blood count with white cell differential, automated Varinder El Work Phone: Start: 04-12-2020 Complete blood count with white cell differential, manual Varinder El Work Phone: Start: 03-28-2020 Albumin serum plasma /whole blood [facility] Start: 03-28-2020 Basic metabolic pane l calcium ionized [facility] Start: 03-28-2020 Blood count complete auto&auto difrntl wbc Trevor Wade Alonzo Work Phone: Start: 03-28-2020 Urnls dip stick/tabl et rgnt auto w/o microscopy [facility] Start: 11-26-2019 Us uterus 1 4 wk transabdl 07/23 gestat Varinder Sienna Work Phone: Start: 11-26-2019 Cast care: wet Varinder mccurdy Work Phone: Start: 11-26-2019 ABO and Rh group [Ty pe] in Blood Varinder El Work Phone: Start: 11-26-2019 Choriogonadotropin [Units/volume] in Serum or Plasma Varinder El Work Phone: Start: 11-26-2019 Complete blood count with white cell differential, automated Varinder El Work Phone: Start: 11-26-2019 Complete blood count with white cell differential, manual Varinder El Work Phone: Start: 11-25-2019 Choriogonadotropin ( test) [Presence] in Urine Varinder El Work Phone: Start: 11-25-2019 Urinalysis Varinder Lewis Work Phone: Start: 09-29-2019 Basic metabolic pane l calcium ionized [facility] Start: 09-29-2019 Albumin serum plasma /whole blood [facility] Start: 09-29-2019 Blood count complete auto&auto difrntl wbc Vazquez Nam Colunga Work Phone: Start: 09-29-2019 Choriogonadotropin ( test) [Presence] in Urine [facility] Start: 09-29-2019 Urnls dip stick/tabl et rgnt auto w/o microscopy [facility] Start: 05-02-2019 Drugs of abuse urine screening test Marium Juwan Johnson Work Phone: Start: 05-02-[address] sugar Johnson Work Phone: Start: 05-02-[address] sugar Johnson Work Phone: Start: 05-02-2019 LIGHT BLUE TOP Marium Juwan Johnson Work Phone: Start: 05-02-2019 LIGHT GREEN TOP Marium Juwan Johnson Work Phone: Start: 05-02-2019 MINT GREEN TOP Marium Juwan Johnson Work Phone: Start: 05-02-[address] sugar Johnson Work Phone: Start: 02-17-2019 Iaadiadoo streptococ cus group a [facility] Start: 02-17-2019 Choriogonadotropin ( test) [Presence] in Urine [facility] Start: 02-17-2019 Urnls dip stick/tabl et rgnt auto w/o microscopy [facility] Start: 01-13-2019 X-ray of right ankle La cate Gary Work Phone: Start: 11-23-2018 Streptococcus pyogen es Ag [Presence] in Throat Jeremias River Work Phone: Start: 04-07-2018 End: 04-07-2018 Urnls dip stick/tablet reagent auto microscopy Thea Robison Work Phone: Start: 04-06-2018 End: 04-06-2018 Assay of magnesium Thea Robison Work Phone: Start: 04-06-2018 End: 04-06-2018 Assay of thyroid stimulating hormone tsh Thea Robison Work Phone: Start: 04-06-2018 End: 04-06-2018 Blood count complete auto&auto difrntl wbc Thea Robison Work Phone: Start: 04-06-2018 End: 04-06-2018 Comprehensive metabolic 2000 panel - Serum or Plasma Thea Robison Work Phone: Start: 04-06-2018 End: 04-06-2018 Erythrocyte sedimentation rate by Westergren method Thea Robison Work Phone: Start: 04-06-2018 End: 04-06-2018 MHS - CPK, TOTAL Thea Robison Work Phone: Start: 04-06-2018 End: 04-06-2018 Thyroxine (T4) free [Mass/volume] in Serum or Plasma Thea Robison Work Phone: Tonsillectomy and adenoidectomy Darnell Odell DO Plan of Treatment Date Care Activity Detail Author Start: 02-23-2032 Tetanus vaccination [facility] Start: 08-03-2030 Tetanus vaccination Tetanus: Every 1 0yrs [facility] Start: 08-24-2028 [facility] Start: 12-14-2025 Screening for malign ant neoplasm of cervix Pap Smear [facility] Start: 08-10-2025 End: 08-10-2025 Patient encounter procedure 08/10/2025 10:00 AM EST Office Visit [facility] [address] [place] [address] Joshua De La Torre, CNM [address] [address] [facility] Start: 08-04-2025 History and physical examination, annual for health maintenance Wellness Visit [facility] Start: 03-23-2025 Influenza vaccination INFLUENZ A VACCINE (Season Ended) [facility] Start: 12-18-2024 End: 12-18-2024 Telemedicine consultation with patient 12/18/2024 7:00 AM EDT Telemedicine [facility] [address] [facility] [place] [address] Candis Saunders, HARVEST CREW SUPERVISOR [facility] [address] [place] [phone] [facility] Start: 11-25-2024 End: 11-25-2024 Patient encounter procedure 11/25/2024 9:15 AM EDT Office Visit [facility] [address] [place] [address] Hayley Rincon, RADHA [address] [place] [address] [facility] Start: 11-12-2024 End: 11-12-2024 Telemedicine consultation with patient 11/12/2024 7:00 AM EDT Telemedicine [facility] [address] [facility] [place] [address] Candis Saunders, HARVEST CREW SUPERVISOR [address] [place] [address] [facility] Start: 11-05-2024 End: 11-05-2024 Telemedicine consultation with patient 11/05/2024 10:30 AM EDT Telemedicine [facility] [place] [address] Candis Saunders, HARVEST CREW SUPERVISOR [address] [place] [phone] [facility] Start: 10-09-2024 End: 10-09-2024 Telemedicine consultation with patient 10/09/2024 9:30 AM EDT Telemedicine [facility] [address] [place] [address] Candis Saunders, RADHA [address] [place] [address] [facility] Start: 09-22-2024 End: 09-22-2024 Patient encounter procedure 09/22/2024 9:15 AM EST Office Visit [facility] [place] [address] Hayley Rincon, RADHA [address] [place] [address] [facility] Start: 09-11-2024 End: 09-11-2024 Telemedicine consultation with patient 09/11/2024 7:00 AM EST Telemedicine [facility] [address] [place] [address] Candis Saunders, HARVEST CREW SUPERVISOR [address] [place] [phone] [facility] Start: 09-04-2024 End: 09-04-2024 Patient encounter procedure 09/04/2024 9:00 AM EST Office Visit [facility] 3rd [place] [phone] Joshua De La Torre CNM 335 Gabriela Angel [address] [place] [address] Loreto Hayes MD [address] [place] [address] [facility] Start: 09-01-2024 Depression Remission Assessment (PHQ9) Depression Remission Assessment (PHQ9) [facility] Start: 08-28-2024 End: 08-28-2024 Patient encounter procedure 08/28/2024 9:30 AM EST Office Visit [facility] [address] [place] [phone] Candis Saunders, HARVEST CREW SUPERVISOR [address] [place] [address] [facility] Start: 08-25-2024 End: 08-25-2024 Patient encounter procedure 08/25/2024 9:15 AM EST Office Visit [facility] [address] [place] [address] Hayley Rincon, HARVEST CREW SUPERVISOR [address] [place] [address] [facility] Start: 08-08-2024 End: 08-08-2024 Patient encounter procedure 08/08/2024 1:00 PM EST Office Visit [facility] [address] [place] [address] Hayley Rincon, HARVEST CRE[employer] SUPERVISOR [address] [place] [address] [facility] Start: 06-21-2024 Depression Remission Assessment (PHQ9) Depression Remission Assessment (PHQ9) [facility] Start: 05-12-2024 End: 05-12-2024 Patient encounter procedure 05/12/2024 9:40 AM EDT Office Visit [facility] [address] [place] [address] Loreto Art MD [address] [place] [address] [facility] Start: 03-26-2024 End: 03-26-2024 Patient encounter procedure 03/26/2024 10:45 AM EDT Office Visit [facility] [address] [place] [address] Candis Saunders, RADHA [address] [place] [phone] [facility] Start: 03-23-2024 COVID-19 Vaccine ( season) COVID-19 Vaccine () [facility] Start: 03-23-2024 Influenza vaccination [facility] Start: 03-06-2024 End: 03-06-2024 Patient encounter procedure 03/06/2024 9:00 AM EDT Office Visit [facility] [address] [place] [address] Candis Saunders, HARVEST CREW SUPERVISOR [address] [place] [address] [facility] Start: 02-26-2024 End: 02-26-2024 Patient encounter procedure 02/26/2024 8:20 AM EDT Office Visit [facility] [address] [place] [address] April Bull APRN-HARVEST CREW SUPERVISOR [address] [place] [address] [facility] Start: 02-12-2024 End: 07-23-2024 Patient encounter procedure 02/12/2024 8:40 AM EDT Office Visit [facility] [address] [place] [address] Faye BulltanJACK block-HARVEST CREW SUPERVISOR [address] [place] [address] [facility] Start: 01-16-2024 End: 01-15-2025 B12/folate level B12 & FOLATE Lab Routine Family history of MS (multiple sclerosis) Lightheadedness Impairment of balance Postural dizziness with presyncope Numbness and tingling Burning sensation Blurred vision, bilateral Diplopia Memory loss Impaired cognition Expected: 01/16/2024, Expires: 01/15/2025 [facility] Comment on above: Expected: 01/16/2024 , Expires: 01/15/2025 Start: 01-16-2024 End: 01-15-2025 Creatinine [Mass/volume] in Serum or Plasma CREATININE SERUM Lab Routine Family history of MS (multiple sclerosis) Lightheadedness Impairment of balance Postural dizziness with presyncope Numbness and tingling Burning sensation Blurred vision, bilateral Diplopia Memory loss Impaired cognition Expected: 01/16/2024, Expires: 01/15/2025 [facility] Comment on above: Expected: 01/16/2024 , Expires: 01/15/2025 Start: 01-16-2024 End: 01-15-2025 Hemoglobin A1c/Hemoglobin.total in Blood HEMOGLOBIN A1C Lab Routine Family history of MS (multiple sclerosis) Lightheadedness Impairment of balance Postural dizziness with presyncope Numbness and tingling Burning sensation Blurred vision, bilateral Diplopia Memory loss Impaired cognition Expected: 01/16/2024, Expires: 01/15/2025 [facility] Comment on above: Expected: 01/16/2024 , Expires: 01/15/2025 Start: 01-16-2024 End: 01-15-2025 MR Brain WO and W contrast IV MRI BRAIN WITH AND WITHOUT CONTRAST Imaging Routine Family history of MS (multiple sclerosis) Lightheadedness Impairment of balance Postural dizziness with presyncope Numbness and tingling Burning sensation Blurred vision, bilateral Diplopia Memory loss Impaired cognition Expected: 01/16/2024, Expires: 01/15/[address] [facility] Comment on above: Expected: 01/16/2024 , Expires: 01/15/2025 Start: 01-16-2024 End: 01-15-2025 MRA Head vessels WO contrast MRI ARTERIOGRAM BRAIN WITHOUT CONTRAST Imaging Routine Family history of MS (multiple sclerosis) Lightheadedness Impairment of balance Postural dizziness with presyncope Numbness and tingling Burning sensation Blurred vision, bilateral Diplopia Memory loss Impaired cognition Expected: 01/16/2024, Expires: 01/15/[address] [facility] Comment on above: Expected: 01/16/2024 , Expires: 01/15/2025 Start: 01-16-2024 End: 01-15-2025 MRA Neck vessels WO contrast MRI ANGIO NECK WITHOUT CONTRAST Imaging Routine Family history of MS (multiple sclerosis) Lightheadedness Impairment of balance Postural dizziness with presyncope Numbness and tingling Burning sensation Blurred vision, bilateral Diplopia Memory loss Impaired cognition Expected: 01/16/2024, Expires: 01/15/[address] [facility] Comment on above: Expected: 01/16/2024 , Expires: 01/15/2025 Start: 01-08-2024 End: 01-08-2024 Patient encounter procedure 01/08/2024 1:20 PM EDT Office Visit [facility] [address] [place] [address] Loreto Art MD [address] [place] [address] [facility] Start: 12-26-2023 End: 12-26-2023 Patient encounter procedure 12/26/2023 3:00 PM EDT Appointment [facility] [address] [place] [address] Loreto Art MD [address] [place] [address] [facility] Start: 12-15-2023 History and physical examination, annual for health maintenance Wellness Visit [facility] Start: 10-31-2023 End: 10-31-2023 Patient encounter procedure 10/31/2023 9:45 AM EDT Office Visit [facility] [address] [place] [phone] Candis Saunders, HARVEST CRE[employer] SUPERVISOR [address] [place] [phone] [facility] Start: 09-19-2023 End: 09-19-2023 Patient encounter procedure 09/19/2023 9:15 AM EST Office Visit [facility] [address] [place] [address] Candis Saunders, RADHA [address] [place] [address] [facility] Start: 08-22-2023 End: 08-22-2023 Patient encounter procedure [facility] Start: 05-28-2023 End: 05-28-2023 Patient encounter procedure 05/28/2023 1:45 PM EST Office Visit [facility] [address] [place] [address] [facility] Start: 04-30-2023 End: 04-30-2023 Patient encounter procedure 04/30/2023 11:20 AM EDT Office Visit [facility] [address] [place] [address] Hayley Rincon, RADHA [address] [place] [address] [facility] Start: 03-23-2023 COVID-19 Vaccine ( season) COVID-19 Vaccine () [facility] Start: 03-23-2023 Influenza vaccination [facility] Start: 01-26-2023 End: 01-26-2023 Patient encounter procedure 01/26/2023 11:40 AM EDT Office Visit [facility] [address] [place] [address] Hayley Rincon, HARVEST CREW SUPERVISOR [address] [place] [address] [facility] Start: 05-13-2022 End: 05-14-2023 [facility] Comment on above: No bolus Start: 05-12-2022 End: 05-13-2023 [facility] Comment on above: IV push over 5 minut es Consult provider janice or to administration. Push over more than 2 minutes. Systolic greater than or equal to 160 OR Diastolic greater than or equal to 110. Contraindications: active asthma, heart disease, heart failure, maternal bradycardia < 60. Consult provider janice or to administration. Push over more than 2 minutes. Systolic greater than or equal to 160 OR Diastolic greater than or equal to 110. Contraindication: coronary artery disease (CAD); Caution in suspected CAD. Consult provider janice or to administration. Systolic greater than or equal to 160 OR Diastolic greater than or equal to 110. Capsules administered orally and swallowed whole; Do not puncture or crush; Do not administer sublingually. Max dose of 16mg / 2 4 hours Start: 05-03-2022 EPVOB, Provider: Darnell Odell, Status: Pen, Time: 2:00 PM EPVOB, Provider: Darnell Odell, Status: Pen, Time: 2:00 PM [place] [address] [employer] Work Phone: Start: 05-02-2022 EPVOB, Provider: Darnell Odell, Status: Pen, Time: 2:45 PM EPVOB, Provider: Darnell Odell, Status: Pen, Time: 2:45 PM [facility] Work Phone: Start: 04-26-2022 EPVOB, Provider: Darnell Odell, Status: Pen, Time: 2:15 PM EPVOB, Provider: Darnell Odell, Status: Pen, Time: 2:15 PM [place] [address] [employer] Work Phone: Start: 04-25-2022 EPVOB, Provider: Darnell Odell, Status: Pen, Time: 2:30 PM EPVOB, Provider: Darnell Odell, Status: Pen, Time: 2:30 PM [employer] Work Phone: Start: 04-19-2022 EPVOB, Provider: Darnell Odell, Status: Pen, Time: 2:15 PM EPVOB, Provider: Darnell Odell, Status: Pen, Time: 2:15 PM [employer] Work Phone: Start: 04-18-2022 EPVOB, Provider: Darnell Odell, Status: Pen, Time: 2:45 PM EPVOB, Provider: Darnell Odell, Status: Pen, Time: 2:45 PM [employer] Work Phone: Start: 04-12-2022 EPVOB, Provider: Darnell Odell, Status: Pen, Time: 2:00 PM EPVOB, Provider: Darnell Odell, Status: Pen, Time: 2:00 PM [employer] Work Phone: Start: 04-05-2022 EPVOB, Provider: Darnell Odell, Status: Pen, Time: 2:15 PM EPVOB, Provider: Darnell Odell, Status: Pen, Time: 2:15 PM [employer] Work Phone: Start: 03-29-2022 EPVOB, Provider: Darnell Odell, Status: Pen, Time: 2:00 PM EPVOB, Provider: Darnell Odell, Status: Pen, Time: 2:00 PM [employer] Work Phone: Start: 03-22-2022 EPVOB, Provider: Darnell Odell, Status: Pen, Time: 1:45 PM EPVOB, Provider: Darnell Odell, Status: Pen, Time: 1:45 PM [employer] Work Phone: Start: 02-22-2022 EPVOB, Provider: Darnell Odell, Status: Pen, Time: 1:30 PM EPVOB, Provider: Darnell Odell, Status: Pen, Time: 1:30 PM [employer] Work Phone: Start: 01-20-2022 EPVOB, Provider: Darnell Odell, Status: Pen, Time: 2:45 PM EPVOB, Provider: Darnell Odell, Status: Pen, Time: 2:45 PM [employer] Work Phone: Start: 01-18-2022 COVID-19 Vaccine (3 - Booster for Pfizer series) COVID-19 Vaccine (3 - Booster for Pfizer series) [facility] Start: 12-23-2021 EPVOB, Provider: Darnell Odell, Status: Pen, Time: 2:45 PM EPVOB, Provider: Darnell Odell, Status: Pen, Time: 2:45 PM [employer] Work Phone: Start: 11-25-2021 Patient encounter procedure ANNUAL, Provider: Darnell Odell, Status: Pen, Time: 2:00 PM [employer] Work Phone: Start: 11-25-2021 EPVOB, Provider: Darnell Odell, Status: Pen, Time: 11:30 AM EPVOB, Provider: Darnell Odell, Status: Pen, Time: 11:30 AM [employer] Work Phone: Start: 11-21-2021 Depression Remission Assessment (PHQ9) Depression Remission Assessment (PHQ9) [facility] Start: 10-26-2021 EPVOB, Provider: Darnell Odell, Status: Pen, Time: 10:45 AM EPVOB, Provider: Darnell Odell, Status: Pen, Time: 10:45 AM [employer] Work Phone: Start: 09-28-2021 EPVOBINTL, Provider: Darnell Odell, Status: Pen, Time: 10:00 AM EPVOBINTL, Provider: Darnell Odell, Status: Pen, Time: 10:00 AM [employer] Work Phone: Start: 09-14-2021 COVID-19 Vaccine (3 - Booster for Pfizer series) COVID-19 Vaccine (3 - Booster for Pfizer series) [facility] Start: 09-14-2021 COVID-19 VACCINE (3 - Pfizer series) COVID-19 VACCINE (3 - Pfizer series) [facility] Start: 07-20-2021 End: 07-20-2021 ambulatory [facility] Start: 07-14-2021 COVID-19 Vaccine (2 - Pfizer 2-dose series) COVID-19 Vaccine (2 - Pfizer 2-dose series) [facility] Start: 07-14-2021 COVID-19 Vaccine (2 - Pfizer 3-dose series) COVID-19 Vaccine (2 - Pfizer 3-dose series) [facility] Start: 07-14-2021 End: 07-14-2021 ambulatory 07/14/2021 Immunization Primary Care Cayetano Stapleton MD [address] [place] [address] [facility] Start: 03-23-2021 Influenza vaccination [facility] Start: 02-09-2021 FUV, Provider: Darnell Odell, Status: Pen, Time: 10:45 AM FUV, Provider: Darnell Odell, Status: Pen, Time: 10:45 AM [facility] Work Phone: Start: 01-21-2021 End: 01-21-2021 Patient encounter procedure 01/21/2021 Office Visit Primary Care Hayley Rincon CNP [address] [place] [address] [phone] [facility] Start: 10-29-2020 Screening for Chlamy luly trachomatis Chlamydia Screening [facility] Start: 09-26-2020 Screening for malign ant neoplasm of cervix CERVICAL CANCER SCREENING DISCUSSION [facility] Start: 04-09-2020 Antibody hiv-1 HIV Antigen/An tibody Screen [facility] Work Phone: Start: 04-09-2020 Antibody rubella Rubella IgG Antibod y [facility] Phone: Start: 04-09-2020 Complete Blood Count Anemia Panel with reflex Complete Blood Count Anemia Panel with reflex [employer] Phone: Start: 04-09-2020 Culture bacterial quanttative colony count urine Cult, Urine [facility] Work Phone: Start: 04-09-2020 Hemoglobin glycosyla corie a1c Hemoglobin A1C [facility] Work Phone: Start: 04-09-2020 Hepatitis c antibody Hepatitis C Antibody Test [facility] [employer] Phone: Start: 04-09-2020 Iaad ia hepatitis b surface antigen Hepatitis B Surface Antigen [facility] [employer] Phone: Start: 04-09-2020 Iadna chlamydia trachomatis amplified probe tq GC + Chlamydia By Amplified Detection [facility] [employer] Phone: Start: 04-09-2020 SYPHILIS SCREENING W ITH REFLEX SYPHILIS SCREENING WITH REFLEX [employer] Phone: Start: 04-09-2020 Type and Screen Type and Screen [facility] Phone: Start: 04-09-2020 Ultrasound Pelvis OB Transvaginal Ultrasound Pelvis OB Transvaginal [facility] [employer] Work Phone: Start: 03-23-2020 Influenza vaccinatio n given [email or web address] Start: 03-16-2020 Depression Remission Assessment (PHQ9) Depression Remission Assessment (PHQ9) [facility] Start: 08-24-2019 Screening for Chlamy luly trachomatis [facility] Start: 03-23-2019 Influenza vaccinatio n given [email or web address] Start: 03-23-2018 Influenza vaccination [facility] Start: 03-23-2017 Influenza vaccination SEQUENTI AL INFLUENZA VACCINE (#1) [facility] Start: 2015 COVID-19 Vaccine (1) COVID-19 Vaccin e (1) [facility] Start: 2015 Meningococcus vaccination MENINGOCOCCAL VACCINE (1 of 1) [facility] Start: 09-26-2014 HPV VACCINE (1 - 3-d ose series) HPV VACCINE (1 - 3-dose series) [facility] Start: 09-26-2014 Vaccination for kamla n papillomavirus [facility] Start: 09-26-2012 Varicella vaccination VARICELL A VACCINES (1 of 2 - 2 Dose Adolescent Series) [facility] Start: 2011 COVID-19 Vaccine (1) COVID-19 Vaccin e (1) [facility] Start: 09-26-2010 Vaccination for kamla n papillomavirus [facility] Start: 09-26-2006 Vaccination for diphtheria, pertussis, and tetanus DTAP VACCINES (1 - Tdap) [facility] Start: 09-26-2005 Pneumococcal Vaccine : Ped or At-Risk (1 of 2 - PPSV23) Pneumococcal Vaccine: Ped or At-Risk (1 of 2 - PPSV23) [facility] Start: 09-26-2002 History and physical examination, annual for health maintenance Wellness Visit [facility] Start: 09-26-2000 Hepatitis A immunization HEPATITIS A VACCINES (1 of 2 - Standard Series) [facility] Start: 09-26-2000 Plxfecg-[id number] a vaccination MMR VACCINES (1 of 2) [facility] Start: 1999 Hepatitis B vaccination HEPATI TIS B VACCINES (1 of 3 - Primary Series) [facility] Start: 1999 Hepatitis C screening HEPATITI S C VIRUS SCREENING [facility] Start: 1999 Screening for Chlamy luly trachomatis Chlamydia [facility] Start: 1999 Screening for malign ant neoplasm of cervix Pap Smear [facility] Start: 1999 [facility] End: 09-29-2019 Bacteria identified Aer cx Nom (Unsp spec) Urine Aerobic Culture Microbiology Routine Once for 1 Occurrences starting 09/29/2019 until 09/29/2019 [facility] Comment on above: Once for 1 Occurrenc es starting 09/29/2019 until 09/29/2019 End: 11-29-2020 Bacteria identified in Unspecified specimen by Aerobe culture Urine Aerobic Culture Microbiology ELLE Once for 1 Occurrences starting 11/29/2020 until 11/29/2020 [facility] Comment on above: Once for 1 Occurrenc es starting 11/29/2020 until 11/29/2020 Bacteria identified in Unspecified specimen by Aerobe culture Urine Aerobic Culture Microbiology Routine Urinary frequency 08/04/2024 10:00 AM EST [facility] End: 09-19-2024 Carbamazepine measurement Carbamazepine Level, Free and Total Lab Routine Therapeutic drug monitoring 1 Occurrences starting 09/19/2023 until 09/19/2024 [facility] Work Phone: Comment on above: 1 Occurrences starti ng 09/19/2023 until 09/19/2024 Carbamazepine measurement Carbamazepine Level, Free and Total Lab Routine Therapeutic drug monitoring 09/19/2023 9:56 AM EST [facility] CBC W Auto Different ial panel - Blood [facility] Chlamydia deoxyribonucleic acid detection [facility] End: 11-25-2019 Chlamydia trachomatis rRNA assay Chlamydia/GC/Trichomon as Amplified RNA Microbiology Routine Once for 1 Occurrences starting 11/25/2019 until 11/25/2019 [facility] Comment on above: Once for 1 Occurrenc es starting 11/25/2019 until 11/25/2019 Chlamydia trachomati s rRNA assay Chlamydia/GC/Trichomon as Amplified RNA Microbiology Routine 11/26/2019 12:51 AM EDT [facility] End: 08-04-2025 Complete blood count with white cell differential, manual CBC and Differential Lab Routine Palpitations 1 Occurrences starting 08/04/2024 until 08/04/2025 [facility] Work Phone: Comment on above: 1 Occurrences starti ng 08/04/2024 until 08/04/2025 Comprehensive metabo lic 2000 panel - Serum or Plasma [facility] Hemoglobin A1c/Hemoglobin.total in Blood [facility] Hepatitis C antibody measurement [facility] End: 08-06-2025 Lipid 1996 panel - Serum or Plasma Lipid Panel Lab Routine 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 1 Occurrences starting 08/07/2024 until 08/06/2025 [facility] Work Phone: Comment on above: 1 Occurrences starti ng 08/07/2024 until 08/06/2025 Liquid based cervica l cytology screening [facility] End: 11-25-2019 Neisseria gonorrhoeae nucleic acid detection Chlamydia/Gonorrhoeae Amplified RNA Microbiology Routine Once for 1 Occurrences starting 11/25/2019 until 11/25/2019 [facility] Comment on above: Once for 1 Occurrenc es starting 11/25/2019 until 11/25/2019 Neisseria gonorrhoea e nucleic acid detection Chlamydia/Gonorrhoeae Amplified RNA Microbiology Routine 11/26/2019 12:51 AM EDT [facility] Protein/Creatinine [Ratio] in Urine [facility] Rubella IgG measurement [facility] End: 02-17-2019 S. pyogenes Org specific cx Ql (Throat) Strep A Culture, Throat Microbiology Routine Once for 1 Occurrences starting 02/17/2019 until 02/17/2019 [facility] Comment on above: Once for 1 Occurrenc es starting 02/17/2019 until 02/17/2019 End: 11-22-2018 S. pyogenes Org specific cx Ql (Throat) Strep A Culture, Throat ELLE Once for 1 Occurrences starting 11/22/2018 until 11/22/2018, 1 completed [facility] Comment on above: Once for 1 Occurrenc es starting 11/22/2018 until 11/22/2018, 1 completed S. pyogenes Org specific cx Ql (Throat) Strep A Culture, Throat Routine 11/22/2018 10:22 PM EDT [facility] Serologic test for syphilis [facility] End: 09-04-2025 Thyroxine (T4) free [Mass/volume] in Serum or Plasma T4, free Lab Routine Palpitations 1 Occurrences starting 09/04/2024 until 09/04/2025 [facility] Work Phone: Comment on above: 1 Occurrences starti ng 09/04/2024 until 09/04/2025 End: 11-25-2019 Trichomonas vaginalis Amplified RNA Trichomonas vaginalis Amplified RNA Microbiology Routine Once for 1 Occurrences starting 11/25/2019 until 11/25/2019 [facility] Comment on above: Once for 1 Occurrenc es starting 11/25/2019 until 11/25/2019 Trichomonas vaginali s Amplified RNA Trichomonas vaginalis Amplified RNA Microbiology Routine 11/26/2019 12:51 AM EDT [facility] NEGATED: Highlighted row has been ruled out! Planned Goals not documented [facility] Work Phone: Immunizations Immunization Date Immunization Notes Care Provider Hoda robertson 02-22-2022 tetanus toxoid, reduced diphtheria toxoid, and acellular pertussis vaccine, adsorbed Dang Urbina [employer] Work Phone: [facility] 07-20-2021 Pfizer SARS-CoV-2 Vaccination Meghana Chacko DO Work Phone: [facility] 06-23-2021 Pfizer SARS-CoV-2 Vaccination Soco García RN [facility] 08-03-2020 tetanus toxoid, reduced diphtheria toxoid, and acellular pertussis vaccine, adsorbed Dang Urbina [employer] Work Phone: [facility] 08-24-2018 tetanus toxoid, reduced diphtheria toxoid, and acellular pertussis vaccine, adsorbed Dang Urbina [employer] Work Phone: [facility] 06-22-2017 influenza virus vaccine, unspecified formulation Vee Marker DO Work Phone: [facility] 02-23-2005 diphtheria, tetanus toxoids and acellular pertussis vaccine, unspecified formulation Dang Urbina [employer] Work Phone: [facility] 02-23-2005 measles, mumps and rubella virus vaccine Dang Urbina [employer] Work Phone: [facility] 02-23-2005 poliovirus vaccine, inactivated Dang Urbina [employer] Work Phone: [facility] 01-10-2001 diphtheria, tetanus toxoids and acellular pertussis vaccine, unspecified formulation Dang Urbina [employer] Work Phone: [facility] 01-10-2001 pneumococcal conjuga te vaccine, 7 valent Dang Urbina [employer] Work Phone: [facility] 01-10-2001 varicella virus vaccine Dang Urbina [employer] Work Phone: [facility] 2000 haemophilus influenz ae type b conjugate and Hepatitis B vaccine Dang Urbina [employer] Work Phone: [facility] 2000 measles, mumps and rubella virus vaccine Dang Uribna [employer] Work Phone: [facility] 2000 pneumococcal conjuga te vaccine, 7 valent Dang Urbina [employer] Work Phone: [facility] 2000 poliovirus vaccine, inactivated Dang Urbina [employer] Work Phone: [facility] 03-29-2000 diphtheria, tetanus toxoids and acellular pertussis vaccine, unspecified formulation Dang Urbina [employer] Work Phone: [facility] 03-29-2000 haemophilus influenz ae type b vaccine, conjugate unspecified formulation Dang Urbina [employer] Work Phone: [facility] 02-02-2000 diphtheria, tetanus toxoids and acellular pertussis vaccine, unspecified formulation Dang Urbina [employer] Work Phone: [facility] 02-02-2000 haemophilus influenz ae type b conjugate and Hepatitis B vaccine Dang Urbina [employer] Work Phone: [facility] 02-02-2000 poliovirus vaccine, inactivated Dang Urbina [employer] Work Phone: [facility] 1999 diphtheria, tetanus toxoids and acellular pertussis vaccine, unspecified formulation Dang Urbina [employer] Work Phone: [facility] 1999 haemophilus influenz ae type b conjugate and Hepatitis B vaccine Dang Urbina [employer] Work Phone: [facility] 1999 poliovirus vaccine, inactivated Dang Urbina [facility] Work Phone: [facility] Payers Date Payer Category Payer Self-pay 2003 Medicaid (Managed Care) 1.2. [id number] 2003 Unknown [id number] 2. [id number] 2003 Unknown [id number] [id number].3.809329.315 2003 Unknown 2003 Unknown [id number] 1999 Unknown [id number] 2.16.8 40.1.713767.3.579.2.900 1999 Unknown [id number] 2.16. 840.1.166493.3.579.2.356 1999 Unknown [id number] 2.16. 840.1.006123.3.579.2.356 1999 Unknown [id number] 2.16. 840.1.576507.3.579.2.356 1999 Unknown [id number] 2.16. 840.1.870712.3.579.2.356 1999 Unknown [id number] 2.16. 840.1.264334.3.579.2.356 1999 Unknown [id number] 2.16. 840.1.146311.3.579.2.356 1999 Unknown [id number] 2.16. 840.1.063132.3.579.2.356 1999 Unknown [id number] 2.16. 840.1.705093.3.579.2.356 1999 Unknown [id number] 2.16. 840.1.504107.3.579.2.356 1999 Unknown [id number] 2.16. 840.1.562045.3.579.2.356 1999 Unknown [id number] 2.16. 840.1.809691.3.579.2.356 1999 Unknown [id number] 2.16. 840.1.064761.3.579.2.356 1999 Unknown [id number] 2.16. 840.1.187765.3.579.2.356 1999 Unknown [id number] 2.16. 840.1.000948.3.579.2.356 1999 Unknown [id number] 2.16. 840.1.777445.3.579.2.356 1999 Unknown [id number] 2.16. 840.1.376261.3.579.2.356 1999 Unknown [id number] 2.16. 840.1.392695.3.579.2.356 1999 Unknown [id number] 2.16.8 40.1.057863.3.579.2.1068 1999 Unknown [id number] 2.16.8 40.1.840756.3.579.2.1068 1999 Unknown [id number] 2.16.8 40.1.687657.3.579.2.1068 1999 Unknown [id number] 2.16.8 40.1.430456.3.579.2.1068 1999 Unknown [id number] 2.16.8 40.1.174157.3.579.2.1068 1999 Unknown [id number] 2.16.8 40.1.914365.3.579.2.1068 1999 Unknown [id number] 2.16.8 40.1.481436.3.579.2.1068 1999 Unknown [id number] 2.16.8 40.1.628350.3.579.2.1068 1999 Unknown [id number] 2.16.8 40.1.459899.3.579.2.1068 1999 Unknown [id number] 2.16.8 40.1.716967.3.579.2.1068 1999 Unknown [id number] 2.16.8 40.1.040053.3.579.2.1068 1999 Unknown [id number] 2.16.8 40.1.616202.3.579.2.1068 1999 Unknown [id number] 2.16.8 40.1.248106.3.579.2.1068 1999 Unknown [id number] 2.16.8 40.1.169277.3.579.2.1068 1999 Unknown [id number] 2.16.8 40.1.366340.3.579.2.1068 1999 Unknown [id number] 2.16.8 40.1.692332.3.579.2.1069 1999 Unknown [id number] 2.16.8 40.1.243138.3.579.2.1069 1999 Unknown [id number] 2.16.8 40.1.967083.3.579.2.1069 1999 Unknown [id number] 2.16.8 40.1.962528.3.579.2.1069 1999 Unknown [id number] 2.16.8 40.1.870977.3.579.2.1069 1999 Unknown [id number] 2.16. 840.1.729344.3.579.2.903 1999 Unknown [id number] 2.16. 840.1.421908.3.579.2.903 1999 Unknown [id number] 2.16.8 40.1.989721.3.579.2.983 1999 Unknown [id number] 2.16. 840.1.373527.3.579.2.902 1999 Unknown [id number] 2.16. 840.1.935251.3.579.2.902 1999 Unknown [id number] 2.16. 840.1.258885.3.579.2.903 1999 Unknown [id number] 2.16. 840.1.775637.3.579.2.903 1999 Unknown [id number] 2.16. 840.1.127229.3.579.2.903 1999 Unknown [id number] 2.16. 840.1.579200.3.579.2.903 1999 Unknown [id number] 2.16. 840.1.053253.3.579.2.903 1999 Unknown [id number] 2.16. 840.1.789397.3.579.2.903 1999 Unknown [id number] 2.16. 840.1.008911.3.579.2.903 1999 Unknown [id number] 2.16. 840.1.728589.3.579.2.903 1999 Unknown [id number] 2.16. 840.1.688611.3.579.2.903 1999 Unknown [id number] 2.16. 840.1.098537.3.579.2.903 1999 Unknown [id number] 2.16. 840.1.041387.3.579.2.903 1999 Unknown [id number] 2.16. 840.1.606147.3.579.2.903 1999 Unknown [id number] 2.16. 840.1.696316.3.579.2.903 1999 Unknown [id number] 2.16.8 40.1.610599.3.579.2.983 1999 Unknown [id number] 2.16.8 40.1.821236.3.579.2.983 1999 Unknown [id number] 2.16.8 40.1.913155.3.579.2.983 1999 Unknown [id number] 2.16.8 40.1.947892.3.579.2.983 1999 Unknown [id number] 2.16.8 40.1.959183.3.579.2.983 1999 Unknown [id number] 2.16.8 40.1.876937.3.579.2.983 1999 Unknown [id number] 2.16.8 40.1.492994.3.579.2.983 1999 Unknown [id number] 2.16.8 40.1.900395.3.579.2.983 1999 Unknown [id number] 2.16.8 40.1.532700.3.579.2.983 1999 Unknown [id number] 2.16.8 40.1.502002.3.579.2.983 Unknown [id number] 2.16.8 40.1.949123.3.579.2.462 Unknown [id number] 2.16.8 40.1.619223.3.579.2.462 Social History Date Type Detail Facility Tobacco smoking status NHIS Unknown if ever smoked [facility] Start: 1999 Sex Assigned At Not on file O [facility] Start: 10-09-2017 Tobacco smoking status NHIS Unknown if ever smoked [facility] Start: 11-22-2018 End: 01-12-2019 Tobacco smoking status NHIS Never smoker [facility] Start: 11-25-2019 End: 01-13-2025 Tobacco smoking status NHIS Former smoker [facility] End: 12-22-2019 History of tobacco use Cigarette Smoker [facility] Start: 11-25-2019 End: 11-25-2024 Alcohol intake Ex-drinker (finding) [facility] Start: 10-30-2019 End: 12-05-2021 Tobacco Comment 2-3 a day [facility] Start: 09-23-2019 [facility] Start: 11-21-2022 End: 12-01-2022 Exposure to SARS-CoV-2 (event) Not sure [facility] Start: 09-29-2019 Tobacco smoking status NHIS Current every day smoker [facility] Start: 09-29-2019 End: 01-25-2023 Cigarettes smoked current (pack per day) - Reported [facility] Start: 03-28-2020 End: 09-04-2024 Tobacco use and exposure Never used [facility] End: 12-22-2019 History of tobacco use Current smoker [facility] Start: 12-14-2022 End: 01-25-2023 Tobacco use panel [facility] Adult Depression Screening Assessment 0 [facility] Start: 03-14-2017 Gender identity Identifies as female gender (finding) [facility] Start: 09-07-2017 Sexual orientation Heterosexual (fin ding) [facility] Start: 03-21-2023 End: 01-16-2024 Alcohol intake Current non-drinker of alcohol (finding) [facility] Start: 11-05-2017 End: 01-16-2024 Tobacco Comment 1.5-2 PPD [facility] Within the last year , have you been afraid of your partner or ex-partner? No [facility] Are you now , , , , never or living with a partner? Living with [facility] How often to you hav e a drink containing alcohol? Never [facility] Do you feel stress - tense, restless, nervous, or anxious, or unable to sleep at night because your mind is troubled all the time - these days [OSQ] Rather much [facility] (I/We) worried whether (my/our) food would run out before (I/we) got money to buy more. Never true [facility] Start: 01-25-2023 Sexual orientation Bisexual (finding ) [facility] Start: 07-28-2016 Sex Female (finding) [facility] Start: 2000 Sex Assigned At Female [facility] NEGATED: Highlighted row - - [employer] Work Phone: Functional Status Date Assessment Result Facility 08-24-2018 Are you deaf, or do you have serious difficulty hearing No 08/24/2018 3:22 PM [facility]id [facility] 08-24-2018 Are you blind, or do you have serious difficulty seeing, even when wearing glasses No 08/24/2018 3:22 PM Sherri Cid, [place] 08-24-2018 Do you have serious difficulty walking or climbing stairs No 08/24/2018 3:22 PM Sherri Cid, [place] No [facility] 08-24-2018 Do you have difficul ty dressing or bathing No 08/24/2018 3:22 PM Sherri Cid, [facility] 08-24-2018 Because of a physica l, mental, or emotional condition, do you have difficulty doing errands alone such as visiting a physician's office or shopping No 08/24/2018 3:22 PM Sherri Cid, [place] [facility] Functional observable [facility] NEGATED: Highlighted row Functional performance Functional status health issues are not documented Disease [employer] Work Phone: Mental Status Date Assessment Result Facility 05-14-2022 Cognitive functi ons [id number] [facility] 08-24-2018 Because of a physical, mental, or emotional condition, do you have serious difficulty concentrating, remembering, or making decisions No 08/24/2018 3:22 PM Sherri Cid, RN No [facility] NEGATED: Highlighted row Cognitive function [Interpretation] Cognitive status health issues are not documented [facility] Work Phone: Clinical Notes 11-29-2020 to 01-13-2025 Note Date & Type Note Facility 01-13-2025 Evaluation note Diagnosis Onset Date Resolution Akathisia acute January 13 9:51am Anxiety acute January 13 9:51am Bipolar 1 disorder acute December 222024 9:51am Borderline personality disorder acute January 13, 2025 9:51am stopped acute Dec 9:51am Former smoker acute January 13, 2025 9:51am High insulin level acute December 222024 9:51am History of hyperemesis gravidarum acute January 13, 2025 9:51am History of miscarriage, currently acute January 13 9:51am History of pre-eclampsia in prior , currently acute January 13 9:51am History of delivery, currently acute January 13, 2025 9:51am IBS (irritable bowel syndrome) acute January 13, 2025 9:51am Major depressive disorder acute January 13, 2025 9:51am Obesity affecting acute January 13, 2025 9:51am PCOS (polycystic ovarian syndrome) acute January 13, 2025 9:51am acute January 13 9:51am PTSD (post-traumatic stress disorder) acute January 13, 2025 9:51am Supervision of high-risk acute January 13, 2025 9:51am Akathisia acute January 30 10:26am Anxiety acute January 30 10:26am Bipolar 1 disorder acute January 202024 10:26am Borderline personality disorder acute January 30, 2025 10:26am stopped acute Jan 10:26am Former smoker acute January 30, 2025 10:26am High insulin level acute January 202024 10:26am History of hyperemesis gravidarum acute January 30, 2025 10:26am History of miscarriage, currently acute January 30 10:26am History of pre-eclampsia in prior , currently acute January 30 10:26am History of delivery, currently acute January 30, 2025 10:26am IBS (irritable bowel syndrome) acute January 30, 2025 10:26am Major depressive disorder acute January 30, 2025 10:26am Obesity affecting acute January 30, 2025 10:26am PCOS (polycystic ovarian syndrome) acute January 30, 2025 10:26am acute January 30 10:26am PTSD (post-traumatic stress disorder) acute January 30, 2025 10:26am Supervision of high-risk acute January 30, 2025 10:26am [place] [employer] [facility] Work Phone: 1(437) 837-833804-16-2025 History of Present illness Narrative* Candis Saunders, [employer] - 11/05/2024 10:30 AM EDT Images from the original note were not included. Behavioral Health Outpatient Progress Note Patient Name: Rohan Mccartney MR #: [id number] : 2000 Chief Complaint: Medication and symptom review/management Interval History: 11/05/2024 Patient presents for follow up exam. I discussed risks, benefits and alternatives of a telemedicine video consultation with the patient (and any accompanying persons) including the risks that the patient's personal health details and medical records will be discussed over real-time, synchronous, interactive audio technology, the visit will not be recorded without the express consent of both the provider and the patient, and that there are inherent diagnostic limitations compared to [id number] evaluations. We elected to proceed with the telemedicine video consultation. Patient is engaged and cooperative during conversation. Last seen on 10-09-24 and patient continues with Tegretol and Aries Has yet to start Qelbree due to warnings she read about it related to Bipolar Disorder. Has yet to order Deplin. Has been on Tegretol for a long time and was on this due to her being and/or . Anxiety: is elevated, PCP added on Hydroxyzine, has been having panicking a lot, mind racing Depression: mood is everywhere, feels like she wants to come out of her skin, has been going on for2 weeks, very emotional, cries a lot. Irritability is increased. Focus/concentration: distractible Sleep: either sleep really good or has a hard time falling asleep, no nightmares Appetite: decreased, feels nauseated a lot Trying to stay active. No anhedonia. Motivation: decreased Aggressive behaviors: verbally Paranoid that people are listening to her. Risky behaviors: careless spending of money Hypomanic/manic episodes: none AVH: none Suicidal ideations/homicidal ideations: denies Current stressors: therapist is moving, day to day with kids Current psychotherapy: sees Ana at [facility] weekly. Her therapist plans to move to [place] next week. Previous Visit: 10/09/2024 Patient presents for follow up exam. I discussed risks, benefits and alternatives of a telemedicine video consultation with the patient (and any accompanying persons) including the risks that the patient's personal health details and medical records will be discussed over real-time, synchronous, interactive audio technology, the visit will not be recorded without the express consent of both the provider and the patient, and that there are inherent diagnostic limitations compared to [id number] evaluations. We elected to proceed with the telemedicine video consultation. Patient is engaged and cooperative during conversation. Last seen on 09-11-24 and patient continues with Tegretol, Geodon, and PRN Propranolol. Propranolol makes her nauseated. Has yet to order Deplin. States her therapist is screening her for Autism. Anxiety: has been higher the last few days due to mom guilt, no panic attacks, mind racing a little less Depression: mood is up and down. Had a great day yesterday being outside. Mood more down when she is home. Frustrated as she does not get much support with her kids so she can get things done an havetime for herself or with Rigoberto. Irritable at times. Focus/concentration: distracted easily. Was diagnosed by Yoselin Aquino (therapist) at [facility] when patient was 11. Sleep varies from night to night. No nightmares. Getting roughly 4-12 hours. Appetite: fluctuations. Trying to stay physically active. No anhedonia. Motivation: decreased at home. More motivated when out of the home. Aggressive behaviors: none Paranoid that people are listening to her. Risky behaviors: none Hypomanic/manic episodes: denies AVH: denies Suicidal ideations/homicidal ideations: denies Current stressors: her kids Current psychotherapy: sees Ana at [facility] weekly. Her therapist plans to move to [place] lisa few months. Current Medications: Medications Prior to Visit[1] control: none Lethality: Denies suicidal or homicidal ideations. Psychiatric ROS: Negative unless noted above. Review of Systems: Constitutional: Denies fever, chills, diaphoresis, malaise Eyes: Denies blurred vision, double vision ENT: Denies nasal congestion, sore throat, ear pain Neurological: Denies headache, photophobia, weakness, numbness CVS: Denies chest pain or palpitations Respiratory: Denies dyspnea or cough Musculoskeletal: Denies joint pain or muscle aches GI: nausea : Denies urinary urgency, frequency, or burning Integumentary: Denies itching or rash Endocrine: Denies heat/cold intolerance or weight loss/weight gain Physical Exam: Patient is in a seated position with view of the upper body. General: Alert and oriented to person, place, and time. Is in no acute distress. Well developed, hydrated, and nourished. Appears stated age. Skin: Skin is intact without rashes or lesions. Appropriate color for ethnicity. Head: The head is normocephalic and atraumatic. Neck: Supple Respiratory: Respirations are non labored. Musculoskeletal: Active ROM in upper extremities. Neurological: Motor function is normal in upper extremities. There were no vitals filed for this visit as this is a telehealth visit. Mental Status Evaluation: General Appearance & Behavior: age appropriate, pleasant, cooperative, good eye contact Grooming & Hygiene: street clothes Psychomotor Activity: no psychomotor abnormalities or muscle atrophy noted Speech: normal rate, rhythym, volume, and spontaneity Flow of Thought: linear and goal directed Thought Associations: Intact Content of Thought: No evidence of suicidal ideations/homicidal ideations/psychosis Mood: anxious Affect: anxious and depressed Insight: intact Judgment: intact Orientation: alert and oriented to person, place, time, and circumstances Memory: intact recent and remote Attention: intact Concentration: intact Language: fluent Fund of Knowledge: estimated average intelligence AIMS exam completed: No abnormal involuntary movements noted or voiced by the patient. Assessment and Plan/Recommendations Diagnosis/Medications/Plan: Diagnoses and all orders for this visit: Bipolar 1 disorder, mixed (HCC)/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/Borderline personality disorder (HCC) Mood is anxious, irritable, down, and fluctuating. After much discussion, patient states her anxious component has always been present with all medications and has been on Tegretol the longest. We will taper off of Tegretol as discussed. Will continue with Aries. Possible akithisia like symptoms versus anxiety related to her abundance of stressors she is dealing with (kids, therapist leaving, no support, no adult outlet for her to talk to other than her spouse). Discussed importance of Me time. Will continue with Aries and re-evaluate patient's symptoms in a week. Self care activities advised: good sleep hygiene, daily exercise, and healthy eating. Pt advised to seek immediate assistance for any SI/HI or aggressive behaviors. Pt voiced understanding. Continue with therapy. - carBAMazepine (TEGretol XR) 200 MG 12 hr tablet; 400mg po AM, 200mg po PM x 7 days, 200mg po BID x 7 days, 200mg po daily for 7 days, then stop . MATILDA (generalized anxiety disorder) Anxiety has been elevated. Hydroxyzine has helped a tad. May take 50mg poTID PRN as discussed. PTSD (post-traumatic stress disorder) No nightmares. Adult ADHD Has not started Qelbree due to warnings she had read about it with Bipolar Disorder. Stressed the choice of a non stimulant over a stimulant as stimulants are more apt in inducing eduarda. 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 Follow up in: One week or sooner if needed -Chart reviewed. -OARRS reviewed. - Any available laboratory/imaging studies reviewed. - Past psychiatric history obtained. This patient is being prescribed one antipsychotic. Diagnostic work up including: BMI, blood pressure, hemoglobin A1c or blood glucose, TSH, and lipid panel have been completed in the past year performed within [facility] and available in [employer]. Glucose <126mg/dL, no indication of impaired glucose tolerance or insulin resistance in fasting or nonfasting state. *If the patient has been diagnosed with diabetes, they were made aware of the risk for weight gain,which may result in an increase in glucose/lipids. Diet and exercise is strongly recommended. The patient verbalized understanding of this warning and agrees to continue with plan. 03/06/2024 9:00 AM 08/07/2024 9:00 AM MATILDA-7 MATILDA-7 Score 20 18 03/06/2024 9:00 AM 08/07/2024 9:00 AM PHQ-9 PHQ-9 Total Score 14 15 Education: Continue medication as prescribed. Please report any side effects or intolerability of the medication. Report any new or worsening symptoms. Physical health: Maintain good physical health through exercise, adequate sleep, hydration, and well balanced meals. Avoid drug use, excess alcohol consumption, and use of nicotine. Psychotherapy: Talk about your mental health with a professional or other supportive people in yourlife. Work on social connections and interacting with others. Relaxation: Maintain a peaceful mind through relaxation techniques such as, meditation, mindfulness, yoga, stretching, and deep breathing exercises. Stay positive: Remember that you have things in your life to be thankful for. Gratitude is a way tokeep a positive mindset. Journaling your thoughts and feelings on paper can help release the mind of the daily stressors or negative thoughts that may be affecting your mental health. Try to journal 3 things you are thankful for or 3 positives that happened to you each day. Screen time/social media: Please try to limit your screen time of the phone, TV, or computer. Excessive or prolonged socia media can impact your mental health negatively. Spend time outdoors when possible. [place] has natural mood boosting qualities and may help improve feelings of anxiety, stress, and depression. Seek emergent help for any worsening of depression or thoughts of harming self or others. Recommend aerobic exercise, if physically able to do so. This includes, walking, hiking, running/jogging, cycling, swimming, skiing, or resistance training (upper and lower body). Please strive for aerobic exercise, 5-7 days per week. Increase time as tolerated, for a goal of at least 30-45 minutesper session. Treatment options and alternatives reviewed with patient. Risks, benefits, side effects of all psychiatric medications discussed with patient and informed consent obtained. All questions were answered. Goals: Improve and/or stabilize mood. Improve anxiety. Improve symptoms of depression. Improve sleep. Improve coping skills. Improve interpersonal skills. Prevent psychiatric hospitalization. Candis Saunders CNP, PMHNP 11/05/2024 12:19 PM [1] Outpatient Medications Prior to Visit Medication Sig Dispense Refill hydrOXYzine (VISTARIL) 25 MG capsule Take 1 (one) capsule (25 mg total) by mouth 3 (three) times a day as needed for anxiety . 90 capsule 0 metFORMIN (GLUCOPHAGE) 500 MG tablet Take 1 (one) tablet (500 mg total) by mouth daily with breakfast . 30 tablet 2 ziprasidone (GEODON) 40 MG capsule Take 1 (one) capsule (40 mg total) by mouth 2 (two) times a day with meals . 60 capsule 1 carBAMazepine (TEGretol XR) 400 MG 12 hr tablet Take 1 (one) tablet (400 mg total) by mouth 2 (two)times a day . 60 tablet 1 metoclopramide (REGLAN) 5 MG tablet Take 1 (one) tablet (5 mg total) by mouth 3 (three) times a dayas needed . 15 tablet 0 No facility-administered medications prior to visit. documented in this [id number] [facility] Patient Name: Rohan Mccartney MR #: [id number] : 2000 Chief Complaint: Medication and symptom review/management Interval History: 11/05/2024 Patient presents for follow up exam. I discussed risks, benefits and alternatives of a telemedicine video consultation with the patient (and any accompanying persons) including the risks that the patient's personal health details and medical records will be discussed over real-time, synchronous, interactive audio technology, the visit will not be recorded without the express consent of both the provider and the patient, and that there are inherent diagnostic limitations compared to [id number] evaluations. We elected to proceed with the telemedicine video consultation. Patient is engaged and cooperative during conversation. Last seen on 10-09-24 and patient continues with Tegretol and Geodon Has yet to start Qelbree due to warnings she read about it related to Bipolar Disorder. Has yet to order Deplin. Has been on Tegretol for a long time and was on this due to her being and/or . Anxiety: is elevated, PCP added on Hydroxyzine, has been having panicking a lot, mind racing Depression: mood is everywhere, feels like she wants to come out of her skin, has been going on for 2 weeks, very emotional, cries a lot. Irritability is increased. Focus/concentration: distractible Sleep: either sleep really good or has a hard time falling asleep, no nightmares Appetite: decreased, feels nauseated a lot Trying to stay active. No anhedonia. Motivation: decreased Aggressive behaviors: verbally Paranoid that people are listening to her. Risky behaviors: careless spending of money Hypomanic/manic episodes: none AVH: none Suicidal ideations/homicidal ideations: denies Current stressors: therapist is moving, day to day with kids Current psychotherapy: sees Ana at [facility] weekly. Her therapist plans to move to [place] next week. Previous Visit: 10/09/2024 Patient presents for follow up exam. I discussed risks, benefits and alternatives of a telemedicine video consultation with the patient (and any accompanying persons) including the risks that the patient's personal health details and medical records will be discussed over real-time, synchronous, interactive audio technology, the visit will not be recorded without the express consent of both the provider and the patient, and that there are inherent diagnostic limitations compared to [id number] evaluations. We elected to proceed with the telemedicine video consultation. Patient is engaged and cooperative during conversation. Last seen on 09-11-24 and patient continues with Tegretol, Geodon, and PRN Propranolol. Propranolol makes her nauseated. Has yet to order Deplin. States her therapist is screening her for Autism. Anxiety: has been higher the last few days due to mom guilt, no panic attacks, mind racing a little less Depression: mood is up and down. Had a great day yesterday being outside. Mood more down when she is home. Frustrated as she does not get much support with her kids so she can get things done an have time for herself or with Rigoberto. Irritable at times. Focus/concentration: distracted easily. Was diagnosed by Yoselin Aquino (therapist) at [facility] when patient was 11. Sleep varies from night to night. No nightmares. Getting roughly 4-12 hours. Appetite: fluctuations. Trying to stay physically active. No anhedonia. Motivation: decreased at home. More motivated when out of the home. Aggressive behaviors: none Paranoid that people are listening to her. Risky behaviors: none Hypomanic/manic episodes: denies AVH: denies Suicidal ideations/homicidal ideations: denies Current stressors: her kids Current psychotherapy: sees Ana at [facility] weekly. Her therapist plans to move to [place] in a few months. Current Medications: Medications Prior to Visit[1] control: none Lethality: Denies suicidal or homicidal ideations. Psychiatric ROS: Negative unless noted above. Review of Systems: Constitutional: Denies fever, chills, diaphoresis, malaise Eyes: Denies blurred vision, double vision ENT: Denies nasal congestion, sore throat, ear pain Neurological: Denies headache, photophobia, weakness, numbness CVS: Denies chest pain or palpitations Respiratory: Denies dyspnea or cough Musculoskeletal: Denies joint pain or muscle aches GI: nausea : Denies urinary urgency, frequency, or burning Integumentary: Denies itching or rash Endocrine: Denies heat/cold intolerance or weight loss/weight gain Physical Exam: Patient is in a seated position with view of the upper body. General: Alert and oriented to person, place, and time. Is in no acute distress. Well developed, hydrated, and nourished. Appears stated age. Skin: Skin is intact without rashes or lesi (more content not included)...[facility]04-12-2025 History of Present illness Narrative* Cecy Garcia - 11/01/2024 7:05 PM EDT Main historian: self Patient presents with Sore Throat Associated symptoms: ear pain in right side, no fevers Onset: 4 days ago Self treatments: none Alleviating factors none Aggravating factors: none Exposures: none Last visit: NA * ADRIANNA Leonardo - 11/01/2024 7:05 PM EDT [facility] Rohan Hutton Sherrill presents to the [facility] with Chief Complaint Patient presents with Sore Throat Main historian: self Patient presents with Sore Throat Associated symptoms: ear pain in right side, no fevers Onset: 4 days ago Self treatments: none Alleviating factors none Aggravating factors: none Exposures: none Last visit: NA The following sections were personally reviewed by me: DAMON As documented in HPI. A thorough 12 point review of systems was evaluated including Constitutional and general appearance, Head, Face, Ears, Eyes, Nose, Throat, Cardiovascular, Pulmonary, GI, , Skin, and Psychiatric andwas found to be negative without symptoms or signs consistent with acute pathology with the exception of that specifically documented in the HPI section of this documentation. PHYSICAL EXAM Visit Vitals BP 99/54 (BP Location: Left arm, BP Position: Sitting) Pulse 74 Temp 98.3 F (36.8 C) (Temporal) Resp 16 Ht 1.651 m (5' 5) Wt 94.3 kg (207 lb 12.8 oz) LMP 10/22/2024 SpO2 97% No BMI 34.58 kg/m Physical Exam Vitals and nursing note reviewed. Constitutional: General: She is not in acute distress. Appearance: Normal appearance. She is not ill-appearing. HENT: Head: Normocephalic and atraumatic. Nose: Nose normal. Eyes: Pupils: Pupils are equal, round, and reactive to light. Cardiovascular: Rate and Rhythm: Normal rate. Pulmonary: Effort: Pulmonary effort is normal. Musculoskeletal: General: No deformity. Cervical back: Normal range of motion. Skin: General: Skin is warm and dry. Capillary Refill: Capillary refill takes less than 2 seconds. Neurological: General: No focal deficit present. Mental Status: She is alert and oriented to person, place, and time. Psychiatric: Mood and Affect: Mood normal. Behavior: Behavior normal. RESULTS Recent Results (from the past 2 hours) POCT RAPID STREP A Collection Time: 11/01/24 7:24 PM Result Value Ref Range POCT RAPID STREP A positive (+/-) ASSESSMENT/PLAN Rohan was seen today for sore throat, right-sided ear pain. Onset of symptoms was 4 days ago, hasworsened over the past 2 days. Patient has not taken any Tylenol or ibuprofen [id number]. Reports has a history of recurrent otitis media, and strep throat. Exacerbating symptoms are when she tries to eat or drink. Reports right side worse than left side. Patient denies fevers, is afebrile inoffice today denies chills, night sweats. Rapid strep swab was obtained and does show positive for strep throat today. Patient will be placed on amoxicillin 500 mg twice a day for 7 days. Discussed supportive care with use of Tylenol and ibuprofen, ice chips, sore throat lozenges for relief of disco mfort. Patient to follow up with primary care if symptoms persist, worsen, or new symptoms arise. Patient is alert, oriented, in no acute distress patient's symptoms are consistent with bacterial strep throat. Patient is stable for discharge home. Patient is in agreeance with plan. Diagnoses and all orders for this visit: Sore throat - POCT RAPID STREP A Strep throat - Amoxicillin 500 MG capsule; Take 1 capsule by mouth every 12 hours for 7 days. If symptoms worsen patient was advised to follow up in our office, primary care provider or the Emergency Dept. Benefits, Risks, Contraindications, and Complications of recommended treatments were explained. The patient understands and agrees to proceed with the plan. ADRIANNA Leonardo 11/01/2024 documented in [address] encounterUniversity [facility]als St. [facility]04-12-2025 Instructions* Patient Instructions* ADRIANNA Lenoardo - 11/01/2024 7:05 PM EDT You were seen and evaluated today for a sore throat. Your exam and evaluation is reassuring that you are stable for discharge home with follow up with your primary care provider. You are being started on antibiotics for strep throat. Please be sure to finish your entire course of antibiotics even if you are feeling well. You should have improvement of your symptoms after 48 hours of antibiotics. In about 3-5 days, you should toss your toothbrush and get a new one to reduce the risk of recontamination of strep back into your mouth. Supportive care for your sore throat includes: 1 teaspoon of salt mixed in with 1 cup of warm water, gargle, spit. Recommend doing this prior to eating and throughout the day as needed for symptom relief.?You can also use Listerine as this does work to kill bacteria and viruses in your throat. Warm tea or warm water with honey, soft foods Chloraseptic throat spray to numb the back of your throat. It is important that you follow-up with your primary care doctor.? Emergency Care may be incomplete without proper follow-up.? Symptoms sometimes change or new symptoms might arise after you leave the Emergency Department.?? Call to arrange a follow up appointment in the next 3 - 4 days, tell the clinic you were seen in the emergency department and we requested a follow up appointment within the next week. * Attachments The following attachments cannot be sent through Care Everywhere. * Strep Throat ([place]) documented in this encounterUniversity Hospitals St. [facility]03-20-2025 [facility] Outpatient Progress Note Patient Name: Rohan Mccartney MR #: [id number] : 2000 Chief Complaint: Medication and symptom review/management Interval History: 10/09/2024 Patient presents for follow up exam. I discussed risks, benefits and alternatives of a telemedicine video consultation with the patient (and any accompanying persons) including the risks that the patient's personal health details and medical records will be discussed over real-time, synchronous, interactive audio technology, the visit will not be recorded without the express consent of both the provider and the patient, and that there are inherent diagnostic limitations compared to [id number] evaluations. We elected to proceed with the telemedicine video consultation. Patient is engaged and cooperative during conversation. Last seen on 09-11-24 and patient continues with Tegretol, Geodon, and PRN Propranolol. Propranolol makes her nauseated. Has yet to order Deplin. States her therapist is screening her for Autism. Anxiety: has been higher the last few days due to mom guilt, no panic attacks, mind racing a little less Depression: mood is up and down. Had a great day yesterday being outside. Mood more down when she is home. Frustrated as she does not get much support with her kids so she can get things done an have time for herself or with Rigoberto. Irritable at times. Focus/concentration: distracted easily. Was diagnosed by Yoselin Aquino (therapist) at [facility] when patient was 11. Sleep varies from night to night. No nightmares. Getting roughly 4-12 hours. Appetite: fluctuations. Trying to stay physically active. No anhedonia. Motivation: decreased at home. More motivated when out of the home. Aggressive behaviors: none Paranoid that people are listening to her. Risky behaviors: none Hypomanic/manic episodes: denies AVH: denies Suicidal ideations/homicidal ideations: denies Current stressors: her kids Current psychotherapy: sees Aan at [facility] weekly. Her therapist plans to move to [place] in a few months. Previous Visit: 09/11/2024 Patient presents for follow up exam. I discussed risks, benefits and alternatives of a telephone visit telemedicine consultation with the patient (and any accompanying persons) including the risks that the patient's personal health details and medical records will be discussed over real-time, synchronous, interactive audio technology, the visit will not be recorded without the express consent of both the provider and the patient, and that there are inherent diagnostic limitations compared to [id number] evaluations. We elected to proceed with the telephone visit telemedicine consultation. Patient is engaged and cooperative during conversation. Last seen on 08-28-24 and patient continues with Tegretol and Geodon. Has yet to order Deplin. Is wearing a Holter Monitor due to her heart rate being elevated. Anxiety: feels anxious, has had panic attacks especially after she learned her therapist plans to move to [place], [employer]. Has failed Buspar and Hydroxyzine in the past with no relief. Depression: mood is a bit more calm, some irritability, but feels she can control it better. Mood fluctuates. Focus/concentration: adequate at times. Sleep: takes a bit to fall asleep at times, stays asleep some nights, gets 6-7 hours, had a rare nightmare. Appetite:decreased Not exercising. No anhedonia. Motivation: decreased Aggressive behaviors: verbally Paranoid that someone is listening to her. Paranoid that someone is trying to take her kids. Risky behaviors: careless spending of money Hypomanic/manic episodes: has been a month or so she has felt manic AVH: none Suicidal ideations/homicidal ideations: none Current stressors: kids Current psychotherapy: sees Ana at [facility] weekly. Her therapist plans to move to [place] in a few months. Current Medications: Medications Prior to Visit[1] control: none Lethality: Denies suicidal or homicidal ideations. Psychiatric ROS: Negative unless noted above. Review of Systems: Constitutional: Denies fever, chills, diaphoresis, malaise Eyes: Denies blurred vision, double vision ENT: Denies nasal congestion, sore throat, ear pain Neurological: Denies headache, photophobia, weakness, numbness CVS: Denies chest pain or palpitations Respiratory: Denies dyspnea or cough Musculoskeletal: Denies joint pain or muscle aches GI: Denies nausea, vomiting, constipation, or diarrhea : Denies urinary urgency, frequency, or burning Integumentary: Denies itching or rash Endocrine: Denies heat/cold intolerance or weight loss/weight gain Physical Exam: Patient is in a seated position with view of the upper body. General: Alert and oriented to person, place, and time. Is in no acute distress. Well developed, hydrated, and nourished. Appears stated age. Skin: S (more content not included)...[facility]03-20-2025 History of Present illness Narrative* Candis Saunders, [employer] - 10/09/2024 9:35 AM EDT Images from the original note were not included. [facility] Outpatient Progress Note Patient Name: Rohan Mccartney MR #: [id number] : 2000 Chief Complaint: Medication and symptom review/management Interval History: 10/09/2024 Patient presents for follow up exam. I discussed risks, benefits and alternatives of a telemedicine video consultation with the patient (and any accompanying persons) including the risks that the patient's personal health details and medical records will be discussed over real-time, synchronous, interactive audio technology, the visit will not be recorded without the express consent of both the provider and the patient, and that there are inherent diagnostic limitations compared to [id number] evaluations. We elected to proceed with the telemedicine video consultation. Patient is engaged and cooperative during conversation. Last seen on 09-11-24 and patient continues with Tegretol, Geodon, and PRN Propranolol. Propranolol makes her nauseated. Has yet to order Deplin. States her therapist is screening her for Autism. Anxiety: has been higher the last few days due to mom guilt, no panic attacks, mind racing a little less Depression: mood is up and down. Had a great day yesterday being outside. Mood more down when she is home. Frustrated as she does not get much support with her kids so she can get things done an havetime for herself or with Rigoberto. Irritable at times. Focus/concentration: distracted easily. Was diagnosed by Yoselin Aquino (therapist) at [facility] when patient was 11. Sleep varies from night to night. No nightmares. Getting roughly 4-12 hours. Appetite: fluctuations. Trying to stay physically active. No anhedonia. Motivation: decreased at home. More motivated when out of the home. Aggressive behaviors: none Paranoid that people are listening to her. Risky behaviors: none Hypomanic/manic episodes: denies AVH: denies Suicidal ideations/homicidal ideations: denies Current stressors: her kids Current psychotherapy: sees Ana at [facility] weekly. Her therapist plans to move to [place] lisa few months. Previous Visit: 09/11/2024 Patient presents for follow up exam. I discussed risks, benefits and alternatives of a telephone visit telemedicine consultation with the patient (and any accompanying persons) including the risks that the patient's personal health details and medical records will be discussed over real-time, synchronous, interactive audio technology,the visit will not be recorded without the express consent of both the provider and the patient, and that there are inherent diagnostic limitations compared to [id number] evaluations. We elected toproceed with the telephone visit telemedicine consultation. Patient is engaged and cooperative during conversation. Last seen on 08-28-24 and patient continues with Tegretol and Geodon. Has yet to order Deplin. Is wearing a Holter Monitor due to her heart rate being elevated. Anxiety: feels anxious, has had panic attacks especially after she learned her therapist plans to move to [place], mind races. Has failed Buspar and Hydroxyzine in the past with no relief. Depression: mood is a bit more calm, some irritability, but feels she can control it better. Mood fluctuates. Focus/concentration: adequate at times. Sleep: takes a bit to fall asleep at times, stays asleep some nights, gets 6-7 hours, had a rare nightmare. Appetite:decreased Not exercising. No anhedonia. Motivation: decreased Aggressive behaviors: verbally Paranoid that someone is listening to her. Paranoid that someone is trying to take her kids. Risky behaviors: careless spending of money Hypomanic/manic episodes: has been a month or so she has felt manic AVH: none Suicidal ideations/homicidal ideations: none Current stressors: kids Current psychotherapy: sees Ana at [facility] weekly. Her therapist plans to move to [place] lisa few months. Current Medications: Medications Prior to Visit[1] control: none Lethality: Denies suicidal or homicidal ideations. Psychiatric ROS: Negative unless noted above. Review of Systems: Constitutional: Denies fever, chills, diaphoresis, malaise Eyes: Denies blurred vision, double vision ENT: Denies nasal congestion, sore throat, ear pain Neurological: Denies headache, photophobia, weakness, numbness CVS: Denies chest pain or palpitations Respiratory: Denies dyspnea or cough Musculoskeletal: Denies joint pain or muscle aches GI: Denies nausea, vomiting, constipation, or diarrhea : Denies urinary urgency, frequency, or burning Integumentary: Denies itching or rash Endocrine: Denies heat/cold intolerance or weight loss/weight gain Physical Exam: Patient is in a seated position with view of the upper body. General: Alert and oriented to person, place, and time. Is in no acute distress. Well developed, hydrated, and nourished. Appears stated age. Skin: Skin is intact without rashes or lesions. Appropriate color for ethnicity. Head: The head is normocephalic and atraumatic. Neck: Supple Respiratory: Respirations are non labored. Musculoskeletal: Active ROM in upper extremities. Neurological: Motor function is normal in upper extremities. There were no vitals filed for this visit as this is a telehealth visit. Mental Status Evaluation: General Appearance & Behavior: age appropriate, pleasant, cooperative, good eye contact Grooming & Hygiene: street clothes Psychomotor Activity: no psychomotor abnormalities or muscle atrophy noted Speech: normal rate, rhythym, volume, and spontaneity Flow of Thought: linear and goal directed Thought Associations: Intact Content of Thought: No evidence of suicidal ideations/homicidal ideations/psychosis Mood: Up and down Affect: decent Insight: intact Judgment: intact Orientation: alert and oriented to person, place, time, and circumstances Memory: intact recent and remote Attention: intact Concentration: intact Language: fluent Fund of Knowledge: estimated average intelligence AIMS exam completed: No abnormal involuntary movements noted or voiced by the patient. Assessment and Plan/Recommendations Diagnosis/Medications/Plan: Diagnoses and all orders for this visit: Bipolar 1 disorder (HCC)/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 Mood is fluctuating somewhat. Will continue with Geodon and Tegretol as discussed. Patient encouraged to get out of the house more and have more me time away from her kids as she gets overwhelmed easily. Self care activities advised: good sleep hygiene, daily exercise, and healthy eating. Pt advised to seek immediate assistance for any SI/HI or aggressive behaviors. Pt voiced understanding. - carBAMazepine (TEGretol XR) 400 MG 12 hr tablet; Take 1 (one) tablet (400 mg total) by mouth 2 (two) times a day . - ziprasidone (GEODON) 40 MG capsule; Take 1 (one) capsule (40 mg total) by mouth 2 (two) times a day with meals . Borderline personality disorder (HCC) Continue with therapy as discussed. MATILDA (generalized anxiety disorder)/PTSD (post-traumatic stress disorder) Anxiety has been elevated the past few days. Has ample supply of Propranolol PRN- advised patient to trial it with a food as it has casused nausea. Adult ADHD Symptoms not controlled. Will initiate Qelbree as discussed. Reviewed possible side effects of new medication with patient. Voiced understanding. Patient agreesto follow up as instructed to assess for efficacy. - viloxazine (QELBREE) 200 mg Cp24; Take 1 (one) capsule (200 mg total) by mouth daily . Methylenetetrahydrofolate reductase (MTHFR) deficiency (HCC) Stressed importance of taking daily Deplin supplementation. Follow up in: Four weeks or sooner if needed -Chart reviewed. -OARRS reviewed. - Any available laboratory/imaging studies reviewed. - Past psychiatric history obtained. This patient is being prescribed one antipsychotic. Diagnostic work up including: BMI, blood pressure, hemoglobin A1c or blood glucose, TSH, and lipid panel have been completed in the past year performed within [facility] and available in [facility]. Glucose <126mg/dL, no indication of impaired glucose tolerance or insulin resistance in fasting or nonfasting state. *If the patient has been diagnosed with diabetes, they were made aware of the risk for weight gain,which may result in an increase in glucose/lipids. Diet and exercise is strongly recommended. The patient verbalized understanding of this warning and agrees to continue with plan. 03/06/2024 9:00 AM 08/07/2024 9:00 AM MATILDA-7 MATILDA-7 Score 20 18 03/06/2024 9:00 AM 08/07/2024 9:00 AM PHQ-9 PHQ-9 Total Score 14 15 Education: Continue medication as prescribed. Please report any side effects or intolerability of the medication. Report any new or worsening symptoms. Physical health: Maintain good physical health through exercise, adequate sleep, hydration, and well balanced meals. Avoid drug use, excess alcohol consumption, and use of nicotine. Psychotherapy: Talk about your mental health with a professional or other supportive people in yourlife. Work on social connections and interacting with others. Relaxation: Maintain a peaceful mind through relaxation techniques such as, meditation, mindfulness, yoga, stretching, and deep breathing exercises. Stay positive: Remember that you have things in your life to be thankful for. Gratitude is a way tokeep a positive mindset. Journaling your thoughts and feelings on paper can help release the mind of the daily stressors or negative thoughts that may be affecting your mental health. Try to journal 3 things you are thankful for or 3 positives that happened to you each day. Screen time/social media: Please try to limit your screen time of the phone, TV, or computer. Excessive or prolonged socia media can impact your mental health negatively. Spend time outdoors when possible. [place] has natural mood boosting qualities and may help improve feelings of anxiety, stress, and depression. Seek emergent help for any worsening of depression or thoughts of harming self or others. Recommend aerobic exercise, if physically able to do so. This includes, walking, hiking, running/jogging, cycling, swimming, skiing, or resistance training (upper and lower body). Please strive for aerobic exercise, 5-7 days per week. Increase time as tolerated, for a goal of at least 30-45 minutesper session. Treatment options and alternatives reviewed with patient. Risks, benefits, side effects of all psychiatric medications discussed with patient and informed consent obtained. All questions were answered. Goals: Improve and/or stabilize mood. Improve anxiety. Improve symptoms of depression. Improve sleep. Improve coping skills. Improve interpersonal skills. Prevent psychiatric hospitalization. Candis Saunders, RADHA, PMHNP 10/09/2024 10:18 AM [1] Outpatient Medications Prior to Visit Medication Sig Dispense Refill metFORMIN (GLUCOPHAGE) 500 MG tablet Take 1 (one) tablet (500 mg total) by mouth daily with breakfast . 30 tablet 2 metoclopramide (REGLAN) 5 MG tablet Take 1 (one) tablet (5 mg total) by mouth 3 (three) times a dayas needed . 15 tablet 0 propranoloL (INDERAL) 10 MG tablet Take 1 (one) tablet (10 mg total) by mouth 3 (three) times a dayas needed . 90 tablet 1 carBAMazepine (TEGretol XR) 400 MG 12 hr tablet Take 1 (one) tablet (400 mg total) by mouth 2 (two)times a day . 60 tablet 1 ziprasidone (GEODON) 40 MG capsule Take 1 (one) capsule (40 mg total) by mouth 2 (two) times a day with meals . 60 capsule 1 No facility-administered medications prior to visit. documented in this [id number] Instructions* Patient Instructions* Loreto Thompson DO - 09/18/2024 12:21 PM EST There is an excessive amount of cerumen in both ear canals. I can see 50% of each of your eardrums and see that they are red bulging just as consistent with infection. The cerumen needs to be removedeventually. Now is not the time to do it. Once your ear infections are partially resolved and less painful, you can use Debrox to soften and loosen the wax. You can use a bulb syringe for low pressure rinsing cerumen. Feel free to return here in a couple weeks for more aggressive high-pressure flushing if necessary. * Attachments The following attachments cannot be sent through Care Everywhere. * Otitis Media (Kitt[place]) documented in this [id number] NotePATIENT NAME: Rohan Mccartney [facility]: [address] [facility] [id number] DATE OF VISIT: 09/18/2024 DATE OF : 2000 SS: [id number] PROVIDER: Loreto Thompson, DO SUBJECTIVE 23 y.o. female to the clinic for complaint of Chief Complaint Patient presents with Otalgia Left ear pain and sore throat, nasal congestion. Symptoms x 3 days. HPI: Left ear pain, sore throat, nasal congestion for 3 days. No ongoing fevers. 6 days ago, she believes she had influenza during which she had upper respiratory symptoms along with temperature of 102 degrees F and associated fever symptoms of generalized myalgia, headache, chills, sweats. Those symptoms were present for 2 days and resolved. She has history of multiple ear infections. The ear infection frequency decreased dramatically after she had tympanostomy tubes placed at age 14. Over the last couple years, frequency has been creeping up again. ROS: Constitutional: Denies ongoing fever or febrile symptoms (shivering, chills, sweats). Head/Ear/Nose/Throat: See HPI above. Respiratory: Denies shortness of breath, cough. Gastrointestinal: Denies nausea, vomiting. Musculoskeletal: Denies ongoing generalized myalgia. Neurological: Denies headache. Social History Socioeconomic History Marital status: Single Tobacco Use Smoking status: Former Current packs/day: 0.50 Average packs/day: 0.5 packs/day for 0.5 years (0.3 ttl pk-yrs) Types: Cigarettes Smokeless tobacco: Never Vaping Use Vaping status: Former Substance and Sexual Activity Alcohol use: Not Currently Drug use: Never Sexual activity: Yes Partners: Male control/protection: None Social Drivers of Health Financial Resource Strain: Low Risk (01/25/2023) Overall Financial Resource Strain (CARDIA) Difficulty of Paying Living Expenses: Not hard at all Food Insecurity: No Food Insecurity (01/25/2023) Hunger Vital Sign Worried About Running Out of Food in the Last Year: Never true Ran Out of Food in the Last Year: Never true Transportation Needs: No Transportation Needs (01/25/2023) PRAPARE - Transportation Lack of Transportation (Medical): No Lack of Transportation (Non-Medical): No Physical Activity: Sufficiently Active (01/25/2023) Exercise Vital Sign Days of Exercise per Week: 5 days Minutes of Exercise per Session: 60 min Stress: Stress Concern Present (01/25/2023) [place] [employer] - Occupational Stress Questionnaire Feeling of Stress : Rather much Social Connections: Moderately Isolated (01/25/2023) Social Connection and Isolation Panel [NHANES] Frequency of Communication with Friends and Family: More than three times a week Frequency of Social Gatherings with Friends and Family: Three times a week Attends Voodoo Services: Never Active Member of Clubs or Organizations: No Attends Club or Organization Meetings: Never Marital Status: Living with partner Housing Stability: Low Risk (01/25/2023) Housing Stability Vital Sign Unable to Pay for Housing in the Last Year: No Number of Places Lived in the Last Year: 1 Unstable Housing in the Last Year: No Past Medical History: Diagnosis Date Anxiety Bipolar 1 disorder (HCC) Borderline personality disorder (HCC) Depression Irritable bowel syndrome Major depressive disorder Miscarriage within last 12 months Polycystic ovarian disease depression Preeclampsia complicating hypertension PTSD (post-traumatic stress disorder) 08/21/2023 Family History Problem Relation Age of Onset Cancer Mother Depression Mother Stroke Mother 29 Vision loss Mother POTS (postural orthostatic tachycardia syndrome) Mother Diabetes Maternal Grandmother Hyperlipidemia Maternal Grandfather Hypertension Maternal Grandfather POTS (postural orthostatic tachycardia syndrome) Sister Mental illness Sister Depression Sister Heart disease Sister Kidney disease Sister Learning disabilities Brother Current Outpatient Medications on File Prior to Visit Medication Sig Dispense Refill carBAMazepine (TEGretol XR) 400 MG 12 hr tablet Take 1 (one) tablet (400 mg total) by mouth 2 (two) times a day . 60 tablet 1 metFORMIN (GLUCOPHAGE) 500 MG tablet Take 1 (one) tablet (500 mg total) by mouth daily with breakfast . 30 tablet 2 metoclopramide (REGLAN) 5 MG tablet Take 1 (one) tablet (5 mg total) by mouth 3 (three) times a day as needed . 15 tablet 0 propranoloL (INDERAL) 10 MG tablet Take 1 (one) tablet (10 mg total) by mouth 3 (three) times a day as needed . 90 tablet 1 ziprasidone (GEODON) 40 MG capsule Take 1 (one) capsule (40 mg total) by mouth 2 (two) times a day with meals . 60 capsule 1 diazoxide (PROGLYCEM) 50 mg/mL suspension Take 13.5 mg/kg/day by mouth every 8 (eight) hours . (Patient not taking: Reported on 09/18/2024) levomefolate calcium 15 mg Tab Take 1 (one) tablet (15 mg total) by mouth daily . (Patient not taking: (more content not included)...[facility] 09-18-2024 History of Present illness Narrative* Loreto Thompson DO - 09/18/2024 12:11 PM EST PATIENT NAME: Rohan Mccartney [facility]: [address] [facility] [id number] DATE OF VISIT: 09/18/2024 DATE OF : 2000 SS: [id number] PROVIDER: Loreto Thompson DO SUBJECTIVE 23 y.o. female to the clinic for complaint of Chief Complaint Patient presents with Otalgia Left ear pain and sore throat, nasal congestion. Symptoms x 3 days. HPI: Left ear pain, sore throat, nasal congestion for 3 days. No ongoing fevers. 6 days ago, she believes she had influenza during which she had upper respiratory symptoms along with temperature of 102 F and associated fever symptoms of generalized myalgia, headache, chills, sweats. Those symptoms were present for 2 days and resolved. She has history of multiple ear infections. The ear infection frequency decreased dramatically after she had tympanostomy tubes placed at age 14. Over the last couple years, frequency has been creeping up again. ROS: Constitutional: Denies ongoing fever or febrile symptoms (shivering, chills, sweats). Head/Ear/Nose/Throat: See HPI above. Respiratory: Denies shortness of breath, cough. Gastrointestinal: Denies nausea, vomiting. Musculoskeletal: Denies ongoing generalized myalgia. Neurological: Denies headache. Social History Socioeconomic History Marital status: Single Tobacco Use Smoking status: Former Current packs/day: 0.50 Average packs/day: 0.5 packs/day for 0.5 years (0.3 ttl pk-yrs) Types: Cigarettes Smokeless tobacco: Never Vaping Use Vaping status: Former Substance and Sexual Activity Alcohol use: Not Currently Drug use: Never Sexual activity: Yes Partners: Male control/protection: None Social Drivers of Health Financial Resource Strain: Low Risk (01/25/2023) Overall Financial Resource Strain (CARDIA) Difficulty of Paying Living Expenses: Not hard at all Food Insecurity: No Food Insecurity (01/25/2023) Hunger Vital Sign Worried About Running Out of Food in the Last Year: Never true Ran Out of Food in the Last Year: Never true Transportation Needs: No Transportation Needs (01/25/2023) PRAPARE - Transportation Lack of Transportation (Medical): No Lack of Transportation (Non-Medical): No Physical Activity: Sufficiently Active (01/25/2023) Exercise Vital Sign Days of Exercise per Week: 5 days Minutes of Exercise per Session: 60 min Stress: Stress Concern Present (01/25/2023) [place] [employer] - Occupational Stress Questionnaire Feeling of Stress : Rather much Social Connections: Moderately Isolated (01/25/2023) Social Connection and Isolation Panel [NHANES] Frequency of Communication with Friends and Family: More than three times a week Frequency of Social Gatherings with Friends and Family: Three times a week Attends Voodoo Services: Never Active Member of Clubs or Organizations: No Attends Club or Organization Meetings: Never Marital Status: Living with partner Housing Stability: Low Risk (01/25/2023) Housing Stability Vital Sign Unable to Pay for Housing in the Last Year: No Number of Places Lived in the Last Year: 1 Unstable Housing in the Last Year: No Past Medical History: Diagnosis Date Anxiety Bipolar 1 disorder (HCC) Borderline personality disorder (HCC) Depression Irritable bowel syndrome Major depressive disorder Miscarriage within last 12 months Polycystic ovarian disease depression Preeclampsia complicating hypertension PTSD (post-traumatic stress disorder) 08/21/2023 Family History Problem Relation Age of Onset Cancer Mother Depression Mother Stroke Mother 29 Vision loss Mother POTS (postural orthostatic tachycardia syndrome) Mother Diabetes Maternal Grandmother Hyperlipidemia Maternal Grandfather Hypertension Maternal Grandfather POTS (postural orthostatic tachycardia syndrome) Sister Mental illness Sister Depression Sister Heart disease Sister Kidney disease Sister Learning disabilities Brother Current Outpatient Medications on File Prior to Visit Medication Sig Dispense Refill carBAMazepine (TEGretol XR) 400 MG 12 hr tablet Take 1 (one) tablet (400 mg total) by mouth 2 (two)times a day . 60 tablet 1 metFORMIN (GLUCOPHAGE) 500 MG tablet Take 1 (one) tablet (500 mg total) by mouth daily with breakfast . 30 tablet 2 metoclopramide (REGLAN) 5 MG tablet Take 1 (one) tablet (5 mg total) by mouth 3 (three) times a dayas needed . 15 tablet 0 propranoloL (INDERAL) 10 MG tablet Take 1 (one) tablet (10 mg total) by mouth 3 (three) times a dayas needed . 90 tablet 1 ziprasidone (GEODON) 40 MG capsule Take 1 (one) capsule (40 mg total) by mouth 2 (two) times a day with meals . 60 capsule 1 diazoxide (PROGLYCEM) 50 mg/mL suspension Take 13.5 mg/kg/day by mouth every 8 (eight) hours . (Patient not taking: Reported on 09/18/2024) levomefolate calcium 15 mg Tab Take 1 (one) tablet (15 mg total) by mouth daily . (Patient not taking: Reported on 09/18/2024 .) 90 tablet 3 No current facility-administered medications on file prior to visit. Allergies Allergen Reactions Latex, Natural Rubber Rash Montelukast Other (See Comments) Halucinations Zofran [Ondansetron Hcl] GI Intolerance Latuda [Lurasidone] Other (See Comments) Suicidal Topiramate Other (See Comments) Depression EXAM: BP 104/73 Pulse 85 Temp 97.9 F (36.6 C) (Oral) Resp 16 Wt 94.1 kg (207 lb 8 oz) LMP 09/15/2024 SpO2 98% No BMI 39.21 kg/m Constitutional: Vital signs reviewed. Well-appearing. No distress. Psychiatric: Mental status is appropriate. Normal affect. Skin: Warm and dry. No rash noted. Eyes: Conjunctiva clear. No photophobia. HENT: No hoarseness, drooling, trismus or stridor. Tonsils are absent. No exudate. No abscess. There is dark cerumen deep in both external auditory canals that obscures 50% of the view of each tympanic membrane. The visible 50% is beefy red and bulging. No bleeding or drainage. Thorax/ Respiratory: Respiratory effort non-labored. Speaks in full sentences without dyspnea. Cardiovascular: Good peripheral circulation. Musculoskeletal: No gross abnormalities. Neck has normal ROM without hesitation or pain response. Neurologic: Alert and appropriately conversant. No ataxia. No dysarthria. No gross facial motor asymmetry. PROCEDURE Procedures RESULTS No results found for this or any previous visit (from the past week). Diagnosis: The primary encounter diagnosis was Recurrent acute suppurative otitis media without spontaneous rupture of tympanic membrane of both sides. A diagnosis of Excessive cerumen in both ear canals was also pertinent to this visit. Plan: 1. Recurrent acute suppurative otitis media without spontaneous rupture of tympanic membrane of both sides amoxicillin-clavulanate (AUGMENTIN) 875-125 mg per tablet 2. Excessive cerumen in both ear canals No follow-ups on file. ADDITIONAL CLINICAL COMMENTS / MEDICAL DECISION MAKING / PLAN: I prescribed Augmentin for bilateral otitis media. She has tolerated that antibiotic in the past without side effects. I presented a plan for her excess cerumen that does not need to be aggressively managed today. See AVS for details. ORDERS PLACED THIS VISIT No orders of the defined types were placed in this encounter. MEDICATION LIST AT END OF VISIT Current Outpatient Medications Medication Sig Dispense Refill carBAMazepine (TEGretol XR) 400 MG 12 hr tablet Take 1 (one) tablet (400 mg total) by mouth 2 (two)times a day . 60 tablet 1 metFORMIN (GLUCOPHAGE) 500 MG tablet Take 1 (one) tablet (500 mg total) by mouth daily with breakfast . 30 tablet 2 metoclopramide (REGLAN) 5 MG tablet Take 1 (one) tablet (5 mg total) by mouth 3 (three) times a dayas needed . 15 tablet 0 propranoloL (INDERAL) 10 MG tablet Take 1 (one) tablet (10 mg total) by mouth 3 (three) times a dayas needed . 90 tablet 1 ziprasidone (GEODON) 40 MG capsule Take 1 (one) capsule (40 mg total) by mouth 2 (two) times a day with meals . 60 capsule 1 amoxicillin-clavulanate (AUGMENTIN) 875-125 mg per tablet Take 1 (one) tablet by mouth 2 (two) times a day for 7 days . 14 tablet 0 diazoxide (PROGLYCEM) 50 mg/mL suspension Take 13.5 mg/kg/day by mouth every 8 (eight) hours . (Patient not taking: Reported on 09/18/2024) levomefolate calcium 15 mg Tab Take 1 (one) tablet (15 mg total) by mouth daily . (Patient not taking: Reported on 09/18/2024 .) 90 tablet 3 No current facility-administered medications for this visit. Loreto Thompson DO documented in this [id number] History of Present illness Narrative* Mike Candis Carter, [employer]PER[employer] - 09/11/2024 1:30 PM EST Images from the original note were not included. Behavioral Health Outpatient Progress Note Patient Name: Rohan Mccartney MR #: [id number] : 2000 Chief Complaint: Medication and symptom review/management Interval History: 09/11/2024 Patient presents for follow up exam. I discussed risks, benefits and alternatives of a telephone visit telemedicine consultation with the patient (and any accompanying persons) including the risks that the patient's personal health details and medical records will be discussed over real-time, synchronous, interactive audio technology,the visit will not be recorded without the express consent of both the provider and the patient, and that there are inherent diagnostic limitations compared to [id number] evaluations. We elected toproceed with the telephone visit telemedicine consultation. Patient is engaged and cooperative during conversation. Last seen on 08-28-24 and patient continues with Tegretol and Geodon. Has yet to order Deplin. Is wearing a Holter Monitor due to her heart rate being elevated. Anxiety: feels anxious, has had panic attacks especially after she [place]. Has failed Buspar and Hydroxyzine in the past with no relief. Depression: mood is a bit more calm, some irritability, but feels she can control it better. Mood fluctuates. Focus/concentration: adequate at times. Sleep: takes a bit to fall asleep at times, stays asleep some nights, gets 6-7 hours, had a rare nightmare. Appetite:decreased Not exercising. No anhedonia. Motivation: decreased Aggressive behaviors: verbally Paranoid that someone is listening to her. Paranoid that someone is trying to take her kids. Risky behaviors: careless spending of money Hypomanic/manic episodes: has been a month or so she has felt manic AVH: none Suicidal ideations/homicidal ideations: none Current stressors: kids Current psychotherapy: sees Ana at [facility] weekly. Her therapist plans to move to [place] lisa few months. Previous Visit: 08/28/2024 Patient presents for follow up exam. I discussed risks, benefits and alternatives of a telephone visit telemedicine consultation with the patient (and any accompanying persons) including the risks that the patient's personal health details and medical records will be discussed over real-time, synchronous, interactive audio technology,the visit will not be recorded without the express consent of both the provider and the patient, and that there are inherent diagnostic limitations compared to [id number] evaluations. We elected toproceed with the telephone visit telemedicine consultation. Patient is engaged and cooperative during conversation. Last seen on 08-13-24 and patient continues with Tegretol and Geodon. Has been on Geodon consistently for a week and a half. States it took a few days for the pharmacy to get it in and then she was off of it a few days due to a stomach bug. Has yet to order Deplin. Has been feeling nauseated when taking Geodon- started lightly and has progressed. Also, has started on Metformin from her PCP. Anxiety: elevated, mind races, catastrophic thinking, panic attacks at times Depression: mood feels slightly calmer since starting Geodon but has high level of anger and irritability. Focus/concentration: adequate Sleep: falls asleep late in the night, stays asleep if she can, no nightmares, her kids are an interruption to her sleep. Getting an average of 4 hours. Appetite: diminished Not exercising. Looking into to getting a membership at the local [employer]. No anhedonia. Motivation: decreased Aggressive behaviors: yelling Paranoid about life and things happening. Risky behaviors: careless spending of money Hypomanic/manic episodes: denies any recent eduarda, last spell was a month ago. AVH: none Suicidal ideations/homicidal ideations: denies Current stressors: mouthy daughter Current psychotherapy: sees Ana at [facility] weekly Current Medications: Outpatient Medications Prior to Visit Medication Sig Dispense Refill diazoxide (PROGLYCEM) 50 mg/mL suspension Take 13.5 mg/kg/day by mouth every 8 (eight) hours . (Patient not taking: Reported on 09/04/2024 .) levomefolate calcium 15 mg Tab Take 1 (one) tablet (15 mg total) by mouth daily . 90 tablet 3 metFORMIN (GLUCOPHAGE) 500 MG tablet Take 1 (one) tablet (500 mg total) by mouth daily with breakfast . 30 tablet 2 metoclopramide (REGLAN) 5 MG tablet Take 1 (one) tablet (5 mg total) by mouth 3 (three) times a dayas needed . 15 tablet 0 carBAMazepine (TEGretol XR) 400 MG 12 hr tablet Take 1 (one) tablet (400 mg total) by mouth 2 (two)times a day . 60 tablet 1 ziprasidone (GEODON) 20 MG capsule Take 1 (one) capsule (20 mg total) by mouth 2 (two) times a day with meals . 60 capsule 0 No facility-administered medications prior to visit. control: none Lethality: Denies suicidal or homicidal ideations. Psychiatric ROS: Negative unless noted above. Review of Systems: Constitutional: Denies fever, chills, diaphoresis, malaise Eyes: Denies blurred vision, double vision ENT: Denies nasal congestion, sore throat, ear pain Neurological: Denies headache, photophobia, weakness, numbness CVS: Denies chest pain or palpitations Respiratory: Denies dyspnea or cough Musculoskeletal: Denies joint pain or muscle aches GI: Denies nausea, vomiting, constipation, or diarrhea : Denies urinary urgency, frequency, or burning Integumentary: Denies itching or rash Endocrine: Denies heat/cold intolerance or weight loss/weight gain Physical Exam: Patient is in a seated position with view of the upper body. General: Alert and oriented to person, place, and time. Is in no acute distress. Well developed, hydrated, and nourished. Appears stated age. Skin: Skin is intact without rashes or lesions. Appropriate color for ethnicity. Head: The head is normocephalic and atraumatic. Neck: Supple Respiratory: Respirations are non labored. Musculoskeletal: Active ROM in upper extremities. Neurological: Motor function is normal in upper extremities. There were no vitals filed for this visit as this is a telehealth visit. Mental Status Evaluation: General Appearance & Behavior: age appropriate, pleasant, cooperative, good eye contact Grooming & Hygiene: street clothes Psychomotor Activity: no psychomotor abnormalities or muscle atrophy noted Speech: hyperverbal Flow of Thought: linear and goal directed Thought Associations: Intact Content of Thought: No evidence of suicidal ideations/homicidal ideations/psychosis Mood: Irritable Affect: anxious and irritable Insight: intact Judgment: intact Orientation: alert and oriented to person, place, time, and circumstances Memory: intact recent and remote Attention: intact Concentration: intact Language: fluent Fund of Knowledge: estimated average intelligence AIMS exam completed: No abnormal involuntary movements noted or voiced by the patient. Assessment and Plan/Recommendations Diagnosis/Medications/Plan: Diagnoses and all orders for this visit: Bipolar 1 disorder (HCC)/Borderline personality disorder (HCC)/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 Mood is slightly irritable and anxious. Fluctuates. Will increase Geodon as discussed. Continue with Depakote. Self care activities advised: good sleep hygiene, daily exercise, and healthy eating. Pt advised to seek immediate assistance for any SI/HI or aggressive behaviors. Pt voiced understanding. Continue with therapy. - carBAMazepine (TEGretol XR) 400 MG 12 hr tablet; Take 1 (one) tablet (400 mg total) by mouth 2 (two) times a day . - ziprasidone (GEODON) 40 MG capsule; Take 1 (one) capsule (40 mg total) by mouth 2 (two) times a day with meals . MATILDA (generalized anxiety disorder) Anxiety is elevated. Will opt to prescribed Propranolol for PRN use. Reviewed possible side effects of new medication with patient. Voiced understanding. Patient agreesto follow up as instructed to assess for efficacy. - propranoloL (INDERAL) 10 MG tablet; Take 1 (one) tablet (10 mg total) by mouth 3 (three) times a day as needed . PTSD (post-traumatic stress disorder) Had one nightmare. Adult ADHD Will await mood stabilization before addressing this. Methylenetetrahydrofolate reductase (MTHFR) deficiency ([facility]) Advised patient to purchase Deplin when affordable. Follow up in: Four weeks or sooner if needed -Chart reviewed. -OARRS reviewed. - Any available laboratory/imaging studies reviewed. - Past psychiatric history obtained. This patient is being prescribed one antipsychotic. Diagnostic work up including: BMI, blood pressure, hemoglobin A1c or blood glucose, TSH, and lipid panel have been completed in the past year performed within [facility] and available in [employer]. Glucose <126mg/dL, no indication of impaired glucose tolerance or insulin resistance in fasting or nonfasting state. *If the patient has been diagnosed with diabetes, they were made aware of the risk for weight gain,which may result in an increase in glucose/lipids. Diet and exercise is strongly recommended. The patient verbalized understanding of this warning and agrees to continue with plan. 03/06/2024 9:00 AM 08/07/2024 9:00 AM MATILDA-7 MATILDA-7 Score 20 18 03/06/2024 9:00 AM 08/07/2024 9:00 AM PHQ-9 PHQ-9 Total Score 14 15 Education: Continue medication as prescribed. Please report any side effects or intolerability of the medication. Report any new or worsening symptoms. Physical health: Maintain good physical health through exercise, adequate sleep, hydration, and well balanced meals. Avoid drug use, excess alcohol consumption, and use of nicotine. Psychotherapy: Talk about your mental health with a professional or other supportive people in yourlife. Work on social connections and interacting with others. Relaxation: Maintain a peaceful mind through relaxation techniques such as, meditation, mindfulness, yoga, stretching, and deep breathing exercises. Stay positive: Remember that you have things in your life to be thankful for. Gratitude is a way tokeep a positive mindset. Journaling your thoughts and feelings on paper can help release the mind of the daily stressors or negative thoughts that may be affecting your mental health. Try to journal 3 things you are thankful for or 3 positives that happened to you each day. Screen time/social media: Please try to limit your screen time of the phone, TV, or computer. Excessive or prolonged socia media can impact your mental health negatively. Spend time outdoors when possible. [place] has natural mood boosting qualities and may help improve feelings of anxiety, stress, and depression. Seek emergent help for any worsening of depression or thoughts of harming self or others. Recommend aerobic exercise, if physically able to do so. This includes, walking, hiking, running/jogging, cycling, swimming, skiing, or resistance training (upper and lower body). Please strive for aerobic exercise, 5-7 days per week. Increase time as tolerated, for a goal of at least 30-45 minutesper session. Treatment options and alternatives reviewed with patient. Risks, benefits, side effects of all psychiatric medications discussed with patient and informed consent obtained. All questions were answered. Goals: Improve and/or stabilize mood. Improve anxiety. Improve symptoms of depression. Improve sleep. Improve coping skills. Improve interpersonal skills. Prevent psychiatric hospitalization. Candis Saunders CNP, PMHNP 09/11/2024 2:02 PM documented in this [id number] NoteBehavioral Health Outpatient Progress Note Patient Name: Rohan Mccartney MR #: [id number] : 2000 Chief Complaint: Medication and symptom review/management Interval History: 09/11/2024 Patient presents for follow up exam. I discussed risks, benefits and alternatives of a telephone visit telemedicine consultation with the patient (and any accompanying persons) including the risks that the patient's personal health details and medical records will be discussed over real-time, synchronous, interactive audio technology, the visit will not be recorded without the express consent of both the provider and the patient, and that there are inherent diagnostic limitations compared to [id number] evaluations. We elected to proceed with the telephone visit telemedicine consultation. Patient is engaged and cooperative during conversation. Last seen on 08-28-24 and patient continues with Tegretol and Geodon. Has yet to order Deplin. Is wearing a Holter Monitor due to her heart rate being elevated. Anxiety: feels anxious, has had panic attacks especially after she learned her therapist plans to move to [place]. Has failed Buspar and Hydroxyzine in the past with no relief. Depression: mood is a bit more calm, some irritability, but feels she can control it better. Mood fluctuates. Focus/concentration: adequate at times. Sleep: takes a bit to fall asleep at times, stays asleep some nights, gets 6-7 hours, had a rare nightmare. Appetite:decreased Not exercising. No anhedonia. Motivation: decreased Aggressive behaviors: verbally Paranoid that someone is listening to her. Paranoid that someone is trying to take her kids. Risky behaviors: careless spending of money Hypomanic/manic episodes: has been a month or so she has felt manic AVH: none Suicidal ideations/homicidal ideations: none Current stressors: kids Current psychotherapy: sees Ana at [facility] weekly. Her therapist plans to move to [place] in a few months. Previous Visit: 08/28/2024 Patient presents for follow up exam. I discussed risks, benefits and alternatives of a telephone visit telemedicine consultation with the patient (and any accompanying persons) including the risks that the patient's personal health details and medical records will be discussed over real-time, synchronous, interactive audio technology, the visit will not be recorded without the express consent of both the provider and the patient, and that there are inherent diagnostic limitations compared to [id number] evaluations. We elected to proceed with the telephone visit telemedicine consultation. Patient is engaged and cooperative during conversation. Last seen on 08-13-24 and patient continues with Tegretol and Geodon. Has been on Geodon consistently for a week and a half. States it took a few days for the pharmacy to get it in and then she was off of it a few days due to a stomach bug. Has yet to order Deplin. Has been feeling nauseated when taking Geodon- started lightly and has progressed. Also, has started on Metformin from her PCP. Anxiety: elevated, mind races, catastrophic thinking, panic attacks at times Depression: mood feels slightly calmer since starting Geodon but has high level of anger and irritability. Focus/concentration: adequate Sleep: falls asleep late in the night, stays asleep if she can, no nightmares, her kids are an interruption to her sleep. Getting an average of 4 hours. Appetite: diminished Not exercising. Looking into to getting a membership at the local [employer]. No anhedonia. Motivation: decreased Aggressive behaviors: yelling Paranoid about life and things happening. Risky behaviors: careless spending of money Hypomanic/manic episodes: denies any recent eduarda, last spell was a month ago. AVH: none Suicidal ideations/homicidal ideations: denies Current stressors: mouthy daughter Current psychotherapy: sees Ana at [facility] weekly Current Medications: Outpatient Medications Prior to Visit Medication Sig Dispense Refill diazoxide (PROGLYCEM) 50 mg/mL suspension Take 13.5 mg/kg/day by mouth every 8 (eight) hours . (Patient not taking: Reported on 09/04/2024 .) levomefolate calcium 15 mg Tab Take 1 (one) tablet (15 mg total) by mouth daily . 90 tablet 3 metFORMIN (GLUCOPHAGE) 500 MG tablet Take 1 (one) tablet (500 mg total) by mouth daily with breakfast . 30 tablet 2 metoclopramide (REGLAN) 5 MG tablet Take 1 (one) tablet (5 mg total) by mouth 3 (three) times a day as needed . 15 tablet 0 carBAMazepine (TEGretol XR) 400 MG 12 hr tablet Take 1 (one) tablet (400 mg total) by mouth 2 (two) times a day . 60 tablet 1 ziprasidone (GEODON) 20 MG capsule Take 1 (one) capsule (20 mg total) by mouth 2 (two) times a day with meals . 60 capsule 0 No facility-administered medications prior to visit. control: none Lethality: Denies suicidal or homicida (more content not included)...[facility]02-13-2025 Instructions* Patient Instructions* Jaelyn Gamboa RN - 09/04/2024 9:29 AM EST How to contact your Care Team: Provider: Loreto Hayes MD Nurse: Jaelyn HAWKINS In case of an emergency please call 911. REFILLS: When in need for refills please call your care team or the office at [phone]. Please include medication name, pharmacy name, and specify 30-day or 90-day supply. Please check with your pharmacy within 24 hours of request for your refill. You must follow up as directed to continue current refills. Thank you! documented in this [id number] History of Present illness Narrative* Osmar Boyd MA - 09/04/2024 9:08 AM EST Review of Systems Constitutional: Positive for malaise/fatigue. Cardiovascular: Positive for near-syncope and palpitations. All other systems reviewed and are negative. * Loreto Hayes MD - 09/04/2024 9:07 AM EST OFFICE CONSULTATION NOTE [facility] [address] [facility] [address] [facility] [id number] Physicians: Hayley Rincon, RADHA (Family); Joshua De La Torre* (Referring) Subjective: Rohan Mccartney is a 23 y.o. female seen in the office today for No chief complaint on file. . HPI patient referred for heart racing. She notices it at all times and it worsens. She has had to quit her job because of it. She notices worsening by standing. There is been no history of syncope. She had tilt table test at [facility] echo both of which were negative. She is presently wearing a Holter monitor. Assessment/Plan mild sinus tachycardia noted on intake. No orthostatic changes. Possible inappropriate sinus tachycardia. Both her Tegretol and Geodon are associated with tachycardia however we will await Holter monitor she is to have a T4 performed patient has attention deficit PTSD personality disorder ECG: Sinus tachycardia Reviewed personally Echo 12/26/2023Normal LV and RV size and function, estimated EF 65%. No significant valvular disease. Tilt table 12/14/2023No LOC. Reported symptoms of dizziness, room spinning, tingling in hands and legs, weakness. Consulted Dr. Mccray about use of SL NTG in /lactating patient. SL NTG given at 20:03 into protocol. BP remained stable throughout. HR Elevated. No problem-specific Assessment & Plan notes found for this encounter. Follow Up Ordered: No follow-ups on file. Patient's Medications New Prescriptions No medications on file Previous Medications CARBAMAZEPINE (TEGRETOL XR) 400 MG 12 HR TABLET Take 1 (one) tablet (400 mg total) by mouth 2 (two)times a day . DIAZOXIDE (PROGLYCEM) 50 MG/ML SUSPENSION Take 13.5 mg/kg/day by mouth every 8 (eight) hours . LEVOMEFOLATE CALCIUM 15 MG TAB Take 1 (one) tablet (15 mg total) by mouth daily . METFORMIN (GLUCOPHAGE) 500 MG TABLET Take 1 (one) tablet (500 mg total) by mouth daily with breakfast . METOCLOPRAMIDE (REGLAN) 5 MG TABLET Take 1 (one) tablet (5 mg total) by mouth 3 (three) times a dayas needed . ZIPRASIDONE (GEODON) 20 MG CAPSULE Take 1 (one) capsule (20 mg total) by mouth 2 (two) times a day with meals . Modified Medications No medications on file Discontinued Medications No medications on file Histories: Past Medical History: Diagnosis Date Anxiety Bipolar 1 disorder (HCC) Borderline personality disorder (HCC) Depression Irritable bowel syndrome Major depressive disorder Miscarriage within last 12 months Polycystic ovarian disease depression Preeclampsia complicating hypertension PTSD (post-traumatic stress disorder) 08/21/2023 Past Surgical History: Procedure Laterality Date adnoids TONSILLECTOMY tubes in ears Family History Problem Relation Age of Onset Cancer Mother Depression Mother Stroke Mother Vision loss Mother Mental illness Sister Depression Sister Heart disease Sister Kidney disease Sister Learning disabilities Brother Diabetes Maternal Grandmother Hyperlipidemia Maternal Grandfather Hypertension Maternal Grandfather Social History Tobacco Use Smoking status: Former Current packs/day: 0.50 Average packs/day: 0.5 packs/day for 0.5 years (0.3 ttl pk-yrs) Types: Cigarettes Smokeless tobacco: Never Tobacco comments: 2-3 a day Vaping Use Vaping status: Former Substance Use Topics Alcohol use: Not Currently Drug use: Never Allergies Allergen Reactions Latex, Natural Rubber Rash Montelukast Other (See Comments) Halucinations Zofran [Ondansetron Hcl] GI Intolerance Latuda [Lurasidone] Other (See Comments) Suicidal Topiramate Other (See Comments) Depression Review of Systems Constitutional: Negative. HENT: Negative. Eyes: Negative. Cardiovascular: Negative for palpitations. Respiratory: Negative. Endocrine: Negative. Skin: Negative. Musculoskeletal: Negative. Gastrointestinal: Negative. Genitourinary: Negative. Neurological: Negative. Psychiatric/Behavioral: Negative. All other systems reviewed and are negative. Overview of Problems Addressed: No problems updated. Objective: Vitals: There were no vitals taken for this visit. Physical Exam Constitutional: Appearance: Normal appearance. HENT: Head: Normocephalic and atraumatic. Nose: Nose normal. Eyes: Extraocular Movements: Extraocular movements intact. Pupils: Pupils are equal, round, and reactive to light. Cardiovascular: Rate and Rhythm: Normal rate and regular rhythm. Pulses: Normal pulses. Heart sounds: Normal heart sounds. Pulmonary: Effort: Pulmonary effort is normal. Breath sounds: Normal breath sounds. Abdominal: General: Abdomen is flat. Bowel sounds are normal. Palpations: Abdomen is soft. Musculoskeletal: General: Normal range of motion. Cervical back: Normal range of motion and neck supple. Skin: General: Skin is warm and dry. Neurological: General: No focal deficit present. Mental Status: She is alert and oriented to person, place, and time. Mental status is at baseline. 1. Palpitations Loreto Hayes MD 09/04/2024 documented in this [id number] NoteOFFICE CONSULTATION NOTE [facility] [address] [facility] [address] [facility] [id number] Physicians: Hayley Rincon, [employer] (Family); Joshua De La Torre* (Referring) Subjective: Rohan Mccartney is a 23 y.o. female seen in the office today for No chief complaint on file. . HPI patient referred for heart racing. She notices it at all times and it worsens. She has had to quit her job because of it. She notices worsening by standing. There is been no history of syncope. She had tilt table test at [facility] echo both of which were negative. She is presently wearing a Holter monitor. Assessment/Plan mild sinus tachycardia noted on intake. No orthostatic changes. Possible inappropriate sinus tachycardia. Both her Tegretol and Geodon are associated with tachycardia however we will await Holter monitor she is to have a T4 performed patient has attention deficit PTSD personality disorder ECG: Sinus tachycardia Reviewed personally Echo 12/26/2023Normal LV and RV size and function, estimated EF 65%. No significant valvular disease. Tilt table 12/14/2023No LOC. Reported symptoms of dizziness, room spinning, tingling in hands and legs, weakness. Consulted Dr. Mccray about use of SL NTG in /lactating patient. SL NTG given at 20:03 into protocol. BP remained stable throughout. HR Elevated. No problem-specific Assessment & Plan notes found for this encounter. Follow Up Ordered: No follow-ups on file. Patient's Medications New Prescriptions No medications on file Previous Medications CARBAMAZEPINE (TEGRETOL XR) 400 MG 12 HR TABLET Take 1 (one) tablet (400 mg total) by mouth 2 (two) times a day . DIAZOXIDE (PROGLYCEM) 50 MG/ML SUSPENSION Take 13.5 mg/kg/day by mouth every 8 (eight) hours . LEVOMEFOLATE CALCIUM 15 MG TAB Take 1 (one) tablet (15 mg total) by mouth daily . METFORMIN (GLUCOPHAGE) 500 MG TABLET Take 1 (one) tablet (500 mg total) by mouth daily with breakfast . METOCLOPRAMIDE (REGLAN) 5 MG TABLET Take 1 (one) tablet (5 mg total) by mouth 3 (three) times a day as needed . ZIPRASIDONE (GEODON) 20 MG CAPSULE Take 1 (one) capsule (20 mg total) by mouth 2 (two) times a day with meals . Modified Medications No medications on file Discontinued Medications No medications on file Histories: Past Medical History: Diagnosis Date Anxiety Bipolar 1 disorder (HCC) Borderline personality disorder (HCC) Depression Irritable bowel syndrome Major depressive disorder Miscarriage within last 12 months Polycystic ovarian disease depression Preeclampsia complicating hypertension PTSD (post-traumatic stress disorder) 08/21/2023 Past Surgical History: Procedure Laterality Date adnoids TONSILLECTOMY tubes in ears Family History Problem Relation Age of Onset Cancer Mother Depression Mother Stroke Mother Vision loss Mother Mental illness Sister Depression Sister Heart disease Sister Kidney disease Sister Learning disabilities Brother Diabetes Maternal Grandmother Hyperlipidemia Maternal Grandfather Hypertension Maternal Grandfather Social History Tobacco Use Smoking status: Former Current packs/day: 0.50 Average packs/day: 0.5 packs/day for 0.5 years (0.3 ttl pk-yrs) Types: Cigarettes Smokeless tobacco: Never Tobacco comments: 2-3 a day Vaping Use Vaping status: Former Substance Use Topics Alcohol use: Not Currently Drug use: Never Allergies Allergen Reactions Latex, Natural Rubber Rash Montelukast Other (See Comments) Halucinations Zofran [Ondansetron Hcl] GI Intolerance Latuda [Lurasidone] Other (See Comments) Suicidal Topiramate Other (See Comments) Depression Review of Systems Constitutional: Negative. HENT: Negative. Eyes: Negative. Cardiovascular: Negative for palpitations. Respiratory: Negative. Endocrine: Negative. Skin: Negative. Musculoskeletal: Negative. Gastrointestinal: Negative. Genitourinary: Negative. Neurological: Negative. Psychiatric/Behavioral: Negative. All other systems reviewed and are negative. Overview of Problems Addressed: No problems updated. Objective: Vitals: There were no vitals taken for this visit. Physical Exam Constitutional: Appearance: Normal appearance. HENT: Head: Normocephalic and atraumatic. Nose: Nose normal. Eyes: Extraocular Movements: Extraocular movements intact. Pupils: Pupils are equal, round, and reactive to light. Cardiovascular: Rate and Rhythm: Normal rate and regular rhythm. Pulses: Normal pulses. Heart sounds: Normal heart sounds. Pulmonary: Effort: Pulmonary effort is normal. Breath sounds: Normal breath sounds. Abdominal: General: Abdomen is flat. Bowel sounds are normal. Palpations: Abdomen is soft. Musculoskeletal: General: Normal range of motion. Cervical back: Normal (more content not included)...[facility] 08-28-2024 History of Present illness Narrative* Candis Saunders, [facility] - 08/28/2024 9:30 AM EST Images from the original note were not included. Behavioral Health Outpatient Progress Note Patient Name: Rohan Mccartney MR #: [id number] : 2000 Chief Complaint: Medication and symptom review/management Interval History: 08/28/2024 Patient presents for follow up exam. I discussed risks, benefits and alternatives of a telephone visit telemedicine consultation with the patient (and any accompanying persons) including the risks that the patient's personal health details and medical records will be discussed over real-time, synchronous, interactive audio technology,the visit will not be recorded without the express consent of both the provider and the patient, and that there are inherent diagnostic limitations compared to [id number] evaluations. We elected toproceed with the telephone visit telemedicine consultation. Patient is engaged and cooperative during conversation. Last seen on 08-13-24 and patient continues with Tegretol and Geodon. Has been on Geodon consistently for a week and a half. States it took a few days for the pharmacy to get it in and then she was off of it a few days due to a stomach bug. Has yet to order Deplin. Has been feeling nauseated when taking Geodon- started lightly and has progressed. Also, has started on Metformin from her PCP. Anxiety: elevated, mind races, catastrophic thinking, panic attacks at times Depression: mood feels slightly calmer since starting Geodon but has high level of anger and irritability. Focus/concentration: adequate Sleep: falls asleep late in the night, stays asleep if she can, no nightmares, her kids are an interruption to her sleep. Getting an average of 4 hours. Appetite: diminished Not exercising. Looking into to getting a membership at the local [employer]. No anhedonia. Motivation: decreased Aggressive behaviors: yelling Paranoid about life and things happening. Risky behaviors: careless spending of money Hypomanic/manic episodes: denies any recent eduarda, last spell was a month ago. AVH: none Suicidal ideations/homicidal ideations: denies Current stressors: mouthy daughter Current psychotherapy: destiny Perez at [facility] weekly Previous Visit: 08/13/2024 Patient presents for follow up exam. I discussed risks, benefits and alternatives of a telephone visit telemedicine consultation with the patient (and any accompanying persons) including the risks that the patient's personal health details and medical records will be discussed over real-time, synchronous, interactive audio technology,the visit will not be recorded without the express consent of both the provider and the patient, and that there are inherent diagnostic limitations compared to [id number] evaluations. We elected toproceed with the telephone visit telemedicine consultation. Patient is engaged and cooperative during conversation. Last seen on 08-07-24 and was prescribed Vraylar at that visit. Continues to take Tegretol. Has been on it several days and has increased agitation since being on it. Feels restless and nauseated. Has yet to get Deplin. Suicidal ideations/homicidal ideations: denies Current psychotherapy: destiny Perez at [facility] weekly Current Medications: Outpatient Medications Prior to Visit Medication Sig Dispense Refill carBAMazepine (TEGretol XR) 400 MG 12 hr tablet Take 1 (one) tablet (400 mg total) by mouth 2 (two)times a day . 60 tablet 1 diazoxide (PROGLYCEM) 50 mg/mL suspension Take 13.5 mg/kg/day by mouth every 8 (eight) hours . levomefolate calcium 15 mg Tab Take 1 (one) tablet (15 mg total) by mouth daily . 90 tablet 3 metFORMIN (GLUCOPHAGE) 500 MG tablet Take 1 (one) tablet (500 mg total) by mouth daily with breakfast . 30 tablet 2 metoclopramide (REGLAN) 5 MG tablet Take 1 (one) tablet (5 mg total) by mouth 3 (three) times a dayas needed . 15 tablet 0 ziprasidone (GEODON) 20 MG capsule Take 1 (one) capsule (20 mg total) by mouth 2 (two) times a day with meals . 60 capsule 0 No facility-administered medications prior to visit. control: none Lethality: Denies suicidal or homicidal ideations. Psychiatric ROS: Negative unless noted above. Review of Systems: Constitutional: Denies fever, chills, diaphoresis, malaise Eyes: Denies blurred vision, double vision ENT: Denies nasal congestion, sore throat, ear pain Neurological: Denies headache, photophobia, weakness, numbness CVS: Denies chest pain or palpitations Respiratory: Denies dyspnea or cough Musculoskeletal: Denies joint pain or muscle aches GI: nausea : Denies urinary urgency, frequency, or burning Integumentary: Denies itching or rash Endocrine: Denies heat/cold intolerance or weight loss/weight gain Physical Exam: Patient is in a seated position with view of the upper body. General: Alert and oriented to person, place, and time. Is in no acute distress. Well developed, hydrated, and nourished. Appears stated age. Skin: Skin is intact without rashes or lesions. Appropriate color for ethnicity. Head: The head is normocephalic and atraumatic. Neck: Supple Respiratory: Respirations are non labored. Musculoskeletal: Active ROM in upper extremities. Neurological: Motor function is normal in upper extremities. There were no vitals filed for this visit as this is a telehealth visit. Mental Status Evaluation: General Appearance & Behavior: age appropriate, pleasant, cooperative, good eye contact Grooming & Hygiene: street clothes Psychomotor Activity: no psychomotor abnormalities or muscle atrophy noted Speech: normal rate, rhythym, volume, and spontaneity Flow of Thought: linear and goal directed Thought Associations: Intact Content of Thought: No evidence of suicidal ideations/homicidal ideations/psychosis Mood: Slightly calmer, but irritable Affect: mood congruent Insight: intact Judgment: intact Orientation: alert and oriented to person, place, time, and circumstances Memory: intact recent and remote Attention: intact Concentration: intact Language: fluent Fund of Knowledge: estimated average intelligence AIMS exam completed: No abnormal involuntary movements noted or voiced by the patient. Assessment and Plan/Recommendations Diagnosis/Medications/Plan: Diagnoses and all orders for this visit: Bipolar 1 disorder (HCC)/Borderline personality disorder (HCC)/[facility] current use of 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/MATILDA (generalized anxiety disorder)/PTSD (post- traumatic stress disorder) Mood has calmed a bit but still has much irritability, mind acing, and anxious symptoms. Patient would like to continue with Geodon at present dose to see if the nausea subsides prior to any increase. Continue with already prescribed Tegretol. Self care activities advised: good sleep hygiene, daily exercise, and healthy eating. Pt advised to seek immediate assistance for any SI/HI or aggressive behaviors. Pt voiced understanding. Continue with counseling. Adult ADHD Will await mood stabilization before addressing this. Methylenetetrahydrofolate reductase (MTHFR) deficiency ([facility]) Has yet to start Deplin. Follow up in: Two weeks or sooner if needed -Chart reviewed. -OARRS reviewed. - Any available laboratory/imaging studies reviewed. - Past psychiatric history obtained. This patient is being prescribed one antipsychotic. Diagnostic work up including: BMI, blood pressure, hemoglobin A1c or blood glucose, TSH, and lipid panel have been completed in the past year performed within [facility] and available in [facility]. Glucose <126mg/dL, no indication of impaired glucose tolerance or insulin resistance in fasting or nonfasting state. *If the patient has been diagnosed with diabetes, they were made aware of the risk for weight gain,which may result in an increase in glucose/lipids. Diet and exercise is strongly recommended. The patient verbalized understanding of this warning and agrees to continue with plan. 03/06/2024 9:00 AM 08/07/2024 9:00 AM MATILDA-7 MATILDA-7 Score 20 18 03/06/2024 9:00 AM 08/07/2024 9:00 AM PHQ-9 PHQ-9 Total Score 14 15 Education: Continue medication as prescribed. Please report any side effects or intolerability of the medication. Report any new or worsening symptoms. Physical health: Maintain good physical health through exercise, adequate sleep, hydration, and well balanced meals. Avoid drug use, excess alcohol consumption, and use of nicotine. Psychotherapy: Talk about your mental health with a professional or other supportive people in yourlife. Work on social connections and interacting with others. Relaxation: Maintain a peaceful mind through relaxation techniques such as, meditation, mindfulness, yoga, stretching, and deep breathing exercises. Stay positive: Remember that you have things in your life to be thankful for. Gratitude is a way tokeep a positive mindset. Journaling your thoughts and feelings on paper can help release the mind of the daily stressors or negative thoughts that may be affecting your mental health. Try to journal 3 things you are thankful for or 3 positives that happened to you each day. Screen time/social media: Please try to limit your screen time of the phone, TV, or computer. Excessive or prolonged socia media can impact your mental health negatively. Spend time outdoors when possible. [place] has natural mood boosting qualities and may help improve feelings of anxiety, stress, and depression. Seek emergent help for any worsening of depression or thoughts of harming self or others. Recommend aerobic exercise, if physically able to do so. This includes, walking, hiking, running/jogging, cycling, swimming, skiing, or resistance training (upper and lower body). Please strive for aerobic exercise, 5-7 days per week. Increase time as tolerated, for a goal of at least 30-45 minutesper session. Treatment options and alternatives reviewed with patient. Risks, benefits, side effects of all psychiatric medications discussed with patient and informed consent obtained. All questions were answered. Goals: Improve and/or stabilize mood. Improve anxiety. Improve symptoms of depression. Improve sleep. Improve coping skills. Improve interpersonal skills. Prevent psychiatric hospitalization. Candis Saunders CNP, PMHNP 08/28/2024 10:59 AM documented in this [id number] NoteBehavioral Health Outpatient Progress Note Patient Name: Rohan Mccartney MR #: [id number] : 2000 Chief Complaint: Medication and symptom review/management Interval History: 08/28/2024 Patient presents for follow up exam. I discussed risks, benefits and alternatives of a telephone visit telemedicine consultation with the patient (and any accompanying persons) including the risks that the patient's personal health details and medical records will be discussed over real-time, synchronous, interactive audio technology, the visit will not be recorded without the express consent of both the provider and the patient, and that there are inherent diagnostic limitations compared to [id number] evaluations. We elected to proceed with the telephone visit telemedicine consultation. Patient is engaged and cooperative during conversation. Last seen on 08-13-24 and patient continues with Tegretol and Geodon. Has been on Geodon consistently for a week and a half. States it took a few days for the pharmacy to get it in and then she was off of it a few days due to a stomach bug. Has yet to order Deplin. Has been feeling nauseated when taking Geodon- started lightly and has progressed. Also, has started on Metformin from her PCP. Anxiety: elevated, mind races, catastrophic thinking, panic attacks at times Depression: mood feels slightly calmer since starting Geodon but has high level of anger and irritability. Focus/concentration: adequate Sleep: falls asleep late in the night, stays asleep if she can, no nightmares, her kids are an interruption to her sleep. Getting an average of 4 hours. Appetite: diminished Not exercising. Looking into to getting a membership at the local [employer]. No anhedonia. Motivation: decreased Aggressive behaviors: yelling Paranoid about life and things happening. Risky behaviors: careless spending of money Hypomanic/manic episodes: denies any recent eduarda, last spell was a month ago. AVH: none Suicidal ideations/homicidal ideations: denies Current stressors: mouthy daughter Current psychotherapy: sees Ana at [facility] weekly Previous Visit: 08/13/2024 Patient presents for follow up exam. I discussed risks, benefits and alternatives of a telephone visit telemedicine consultation with the patient (and any accompanying persons) including the risks that the patient's personal health details and medical records will be discussed over real-time, synchronous, interactive audio technology, the visit will not be recorded without the express consent of both the provider and the patient, and that there are inherent diagnostic limitations compared to [id number] evaluations. We elected to proceed with the telephone visit telemedicine consultation. Patient is engaged and cooperative during conversation. Last seen on 08-07-24 and was prescribed Vraylar at that visit. Continues to take Tegretol. Has been on it several days and has increased agitation since being on it. Feels restless and nauseated. Has yet to get Deplin. Suicidal ideations/homicidal ideations: denies Current psychotherapy: sees Ana at [facility] weekly Current Medications: Outpatient Medications Prior to Visit Medication Sig Dispense Refill carBAMazepine (TEGretol XR) 400 MG 12 hr tablet Take 1 (one) tablet (400 mg total) by mouth 2 (two) times a day . 60 tablet 1 diazoxide (PROGLYCEM) 50 mg/mL suspension Take 13.5 mg/kg/day by mouth every 8 (eight) hours . levomefolate calcium 15 mg Tab Take 1 (one) tablet (15 mg total) by mouth daily . 90 tablet 3 metFORMIN (GLUCOPHAGE) 500 MG tablet Take 1 (one) tablet (500 mg total) by mouth daily with breakfast . 30 tablet 2 metoclopramide (REGLAN) 5 MG tablet Take 1 (one) tablet (5 mg total) by mouth 3 (three) times a day as needed . 15 tablet 0 ziprasidone (GEODON) 20 MG capsule Take 1 (one) capsule (20 mg total) by mouth 2 (two) times a day with meals . 60 capsule 0 No facility-administered medications prior to visit. control: none Lethality: Denies suicidal or homicidal ideations. Psychiatric ROS: Negative unless noted above. Review of Systems: Constitutional: Denies fever, chills, diaphoresis, malaise Eyes: Denies blurred vision, double vision ENT: Denies nasal congestion, sore throat, ear pain Neurological: Denies headache, photophobia, weakness, numbness CVS: Denies chest pain or palpitations Respiratory: Denies dyspnea or cough Musculoskeletal: Denies joint pain or muscle aches GI: nausea : Denies urinary urgency, frequency, or burning Integumentary: Denies itching or rash Endocrine: Denies heat/cold intolerance or weight loss/weight gain Physical Exam: Patient is in a seated position with view of the upper body. General: Alert and oriented to person, place, and time. Is in no acute distress. Well developed, hydrated, and nourished. Appears stated age. Skin: Skin is int (more content not included)...[facility]01-22-2025 History of Present illness Narrative* Candis Saunders, [employer] - 08/13/2024 1:30 PM EST Images from the original note were not included. Behavioral Health Outpatient Progress Note Patient Name: Rohan Mccartney MR #: [id number] : 2000 Chief Complaint: Medication and symptom review/management Interval History: 08/13/2024 Patient presents for follow up exam. I discussed risks, benefits and alternatives of a telephone visit telemedicine consultation with the patient (and any accompanying persons) including the risks that the patient's personal health details and medical records will be discussed over real-time, synchronous, interactive audio technology,the visit will not be recorded without the express consent of both the provider and the patient, and that there are inherent diagnostic limitations compared to [id number] evaluations. We elected toproceed with the telephone visit telemedicine consultation. Patient is engaged and cooperative during conversation. Last seen on 08-07-24 and was prescribed Vraylar at that visit. Continues to take Tegretol. Has been on it several days and has increased agitation since being on it. Feels restless and nauseated. Has yet to get Deplin. Suicidal ideations/homicidal ideations: denies Current psychotherapy: sees Ana at [facility] weekly Previous Visit: 08/07/2024 Patient presents for follow up exam. Last visit was on 03-06-24 and patient continues with Tegretol (has been more consistent with this for the last 2 weeks). Stopped Strattera and Celexa a couple of months ago. Strattera did not help her focus/concentration. Celexa made her anxious symptoms worse. Has yet to start Vraylar as she was scared. Anxiety: has been increased, has had a few panic attacks, mind racing. Depression: mood is all over the place, fluctuates a lot Irritable. Focus/concentration: distractible Sleep is erratic. Sleeping about 3-10 hours. No nightmares. Appetite: decreased Not exercising. Anhedonic. Motivated at times- depends on what it is for. Aggressive behaviors: verbally Paranoid that everyone is listening to her all of the time. Risky behaviors: careless spending of money, hypersexual Hypomanic/manic episodes: last manic spell was a month ago and it lasted a week or so AVH: heard a banging noise outside the other night. Suicidal ideations/homicidal ideations: denies Current stressors: daughter's behavior, being home all of the time, episodes of accelerated heart rate (has seen Cardiology), finances Current psychotherapy: sees Ana at [facility] weekly Current Medications: Outpatient Medications Prior to Visit Medication Sig Dispense Refill carBAMazepine (TEGretol XR) 400 MG 12 hr tablet Take 1 (one) tablet (400 mg total) by mouth 2 (two)times a day . 60 tablet 1 levomefolate calcium 15 mg Tab Take 1 (one) tablet (15 mg total) by mouth daily . 90 tablet 3 cariprazine (VRAYLAR) 1.5 mg capsule Take 1 (one) capsule (1.5 mg total) by mouth daily . 30 capsule 1 No facility-administered medications prior to visit. Lethality: Denies suicidal or homicidal ideations. Psychiatric ROS: Negative unless noted above. Review of Systems: Constitutional: Denies fever, chills, diaphoresis, malaise Eyes: Denies blurred vision, double vision ENT: Denies nasal congestion, sore throat, ear pain Neurological: Denies headache, photophobia, weakness, numbness CVS: Denies chest pain or palpitations Respiratory: Denies dyspnea or cough Musculoskeletal: Denies joint pain or muscle aches GI: Denies nausea, vomiting, constipation, or diarrhea : Denies urinary urgency, frequency, or burning Integumentary: Denies itching or rash Endocrine: Denies heat/cold intolerance or weight loss/weight gain Physical Exam: Patient is in a seated position with view of the upper body. General: Alert and oriented to person, place, and time. Is in no acute distress. Well developed, hydrated, and nourished. Appears stated age. Skin: Skin is intact without rashes or lesions. Appropriate color for ethnicity. Head: The head is normocephalic and atraumatic. Neck: Supple Respiratory: Respirations are non labored. Musculoskeletal: Active ROM in upper extremities. Neurological: Motor function is normal in upper extremities. There were no vitals filed for this visit as this is a telehealth visit. Mental Status Evaluation: General Appearance & Behavior: age appropriate, pleasant, cooperative, good eye contact Grooming & Hygiene: street clothes Psychomotor Activity: no psychomotor abnormalities or muscle atrophy noted Speech: normal rate, rhythym, volume, and spontaneity Flow of Thought: linear and goal directed Thought Associations: Intact Content of Thought: No evidence of suicidal ideations/homicidal ideations/psychosis Mood: Irritable Affect: mood congruent Insight: intact Judgment: intact Orientation: alert and oriented to person, place, time, and circumstances Memory: intact recent and remote Attention: intact Concentration: intact Language: fluent Fund of Knowledge: estimated average intelligence AIMS exam completed: No abnormal involuntary movements noted or voiced by the patient. Assessment and Plan/Recommendations Diagnosis/Medications/Plan: Diagnoses and all orders for this visit: Bipolar 1 disorder (HCC)/[facility] current use of 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 Failed Vraylar due to side effects. Will opt to stop Vraylar and initiate Geodon as discussed. Reviewed possible side effects of new medication with patient. Voiced understanding. Patient agreesto follow up as instructed to assess for efficacy. Continue with Tegretol. Self care activities advised: good sleep hygiene, daily exercise, and healthy eating. Pt advised to seek immediate assistance for any SI/HI or aggressive behaviors. Pt voiced understanding. - ziprasidone (GEODON) 20 MG capsule; Take 1 (one) capsule (20 mg total) by mouth 2 (two) times a day with meals . Borderline personality disorder (HCC)/MATILDA (generalized anxiety disorder)/PTSD (post-traumatic stress disorder) Continue with therapy. Adult ADHD Will await mood stabilization before addressing this. Methylenetetrahydrofolate reductase (MTHFR) deficiency (HCC) Has yet to start Deplin. Follow up in: Two weeks or sooner if needed -Chart reviewed. -OARRS reviewed. - Any available laboratory/imaging studies reviewed. - Past psychiatric history obtained. This patient is being prescribed one antipsychotic. Diagnostic work up including: BMI, blood pressure, hemoglobin A1c or blood glucose, TSH, and lipid panel have been completed in the past year performed within [facility] and available in [facility]. Glucose <126mg/dL, no indication of impaired glucose tolerance or insulin resistance in fasting or nonfasting state. *If the patient has been diagnosed with diabetes, they were made aware of the risk for weight gain,which may result in an increase in glucose/lipids. Diet and exercise is strongly recommended. The patient verbalized understanding of this warning and agrees to continue with plan. 03/06/2024 9:00 AM 08/07/2024 9:00 AM MATILDA-7 MATILDA-7 Score 20 18 03/06/2024 9:00 AM 08/07/2024 9:00 AM PHQ-9 PHQ-9 Total Score 14 15 Education: Continue medication as prescribed. Please report any side effects or intolerability of the medication. Report any new or worsening symptoms. Physical health: Maintain good physical health through exercise, adequate sleep, hydration, and well balanced meals. Avoid drug use, excess alcohol consumption, and use of nicotine. Psychotherapy: Talk about your mental health with a professional or other supportive people in yourlife. Work on social connections and interacting with others. Relaxation: Maintain a peaceful mind through relaxation techniques such as, meditation, mindfulness, yoga, stretching, and deep breathing exercises. Stay positive: Remember that you have things in your life to be thankful for. Gratitude is a way tokeep a positive mindset. Journaling your thoughts and feelings on paper can help release the mind of the daily stressors or negative thoughts that may be affecting your mental health. Try to journal 3 things you are thankful for or 3 positives that happened to you each day. Screen time/social media: Please try to limit your screen time of the phone, TV, or computer. Excessive or prolonged socia media can impact your mental health negatively. Spend time outdoors when possible. [place] has natural mood boosting qualities and may help improve feelings of anxiety, stress, and depression. Seek emergent help for any worsening of depression or thoughts of harming self or others. Recommend aerobic exercise, if physically able to do so. This includes, walking, hiking, running/jogging, cycling, swimming, skiing, or resistance training (upper and lower body). Please strive for aerobic exercise, 5-7 days per week. Increase time as tolerated, for a goal of at least 30-45 minutesper session. Treatment options and alternatives reviewed with patient. Risks, benefits, side effects of all psychiatric medications discussed with patient and informed consent obtained. All questions were answered. Goals: Improve and/or stabilize mood. Improve anxiety. Improve symptoms of depression. Improve sleep. Improve coping skills. Improve interpersonal skills. Prevent psychiatric hospitalization. Candis Saunders CNP, PMHNP 08/13/2024 1:54 PM documented in this [id number] NoteBehavioral Health Outpatient Progress Note Patient Name: Rohan Mccartney MR #: [id number] : 2000 Chief Complaint: Medication and symptom review/management Interval History: 08/13/2024 Patient presents for follow up exam. I discussed risks, benefits and alternatives of a telephone visit telemedicine consultation with the patient (and any accompanying persons) including the risks that the patient's personal health details and medical records will be discussed over real-time, synchronous, interactive audio technology, the visit will not be recorded without the express consent of both the provider and the patient, and that there are inherent diagnostic limitations compared to [id number] evaluations. We elected to proceed with the telephone visit telemedicine consultation. Patient is engaged and cooperative during conversation. Last seen on 08-07-24 and was prescribed Vraylar at that visit. Continues to take Tegretol. Has been on it several days and has increased agitation since being on it. Feels restless and nauseated. Has yet to get [place]. Suicidal ideations/homicidal ideations: denies Current psychotherapy: sees Ana at [facility] weekly Previous Visit: 08/07/2024 Patient presents for follow up exam. Last visit was on 03-06-24 and patient continues with Tegretol (has been more consistent with this for the last 2 weeks). Stopped Strattera and Celexa a couple of months ago. Strattera did not help her focus/concentration. Celexa made her anxious symptoms worse. Has yet to start Vraylar as she was scared. Anxiety: has been increased, has had a few panic attacks, mind racing. Depression: mood is all over the place, fluctuates a lot Irritable. Focus/concentration: distractible Sleep is erratic. Sleeping about 3-10 hours. No nightmares. Appetite: decreased Not exercising. Anhedonic. Motivated at times- depends on what it is for. Aggressive behaviors: verbally Paranoid that everyone is listening to her all of the time. Risky behaviors: careless spending of money, hypersexual Hypomanic/manic episodes: last manic spell was a month ago and it lasted a week or so AVH: heard a banging noise outside the other night. Suicidal ideations/homicidal ideations: denies Current stressors: daughter's behavior, being home all of the time, episodes of accelerated heart rate (has seen Cardiology), finances Current psychotherapy: sees [facility] weekly Current Medications: Outpatient Medications Prior to Visit Medication Sig Dispense Refill carBAMazepine (TEGretol XR) 400 MG 12 hr tablet Take 1 (one) tablet (400 mg total) by mouth 2 (two) times a day . 60 tablet 1 levomefolate calcium 15 mg Tab Take 1 (one) tablet (15 mg total) by mouth daily . 90 tablet 3 cariprazine (VRAYLAR) 1.5 mg capsule Take 1 (one) capsule (1.5 mg total) by mouth daily . 30 capsule 1 No facility-administered medications prior to visit. Lethality: Denies suicidal or homicidal ideations. Psychiatric ROS: Negative unless noted above. Review of Systems: Constitutional: Denies fever, chills, diaphoresis, malaise Eyes: Denies blurred vision, double vision ENT: Denies nasal congestion, sore throat, ear pain Neurological: Denies headache, photophobia, weakness, numbness CVS: Denies chest pain or palpitations Respiratory: Denies dyspnea or cough Musculoskeletal: Denies joint pain or muscle aches GI: Denies nausea, vomiting, constipation, or diarrhea : Denies urinary urgency, frequency, or burning Integumentary: Denies itching or rash Endocrine: Denies heat/cold intolerance or weight loss/weight gain Physical Exam: Patient is in a seated position with view of the upper body. General: Alert and oriented to person, place, and time. Is in no acute distress. Well developed, hydrated, and nourished. Appears stated age. Skin: Skin is intact without rashes or lesions. Appropriate color for ethnicity. Head: The head is normocephalic and atraumatic. Neck: Supple Respiratory: Respirations are non labored. Musculoskeletal: Active ROM in upper extremities. Neurological: Motor function is normal in upper extremities. There were no vitals filed for this visit as this is a telehealth visit. Mental Status Evaluation: General Appearance & Behavior: age appropriate, pleasant, cooperative, good eye contact Grooming & Hygiene: street clothes Psychomotor Activity: no psychomotor abnormalities or muscle atrophy noted Speech: normal rate, rhythym, volume, and spontaneity Flow of Thought: linear and goal directed Thought Associations: Intact Content of Thought: No evidence of suicidal ideations/homicidal ideations/psychosis Mood: Irritable Affect: mood congruent Insight: intact Judgment: intact Orientation: alert and oriented to person, place, time, and circumstances Memory: intact recent and remote Attention: intact Concentration: intact L (more content not included)...[facility]01-16-2025 History of Present illness Narrative* Candis Saunders, [employer] - 08/07/2024 10:00 AM EST Images from the original note were not included. Behavioral Health Outpatient Progress Note Patient Name: Rohan Mccartney MR #: [id number] : 2000 Chief Complaint: Medication and symptom review/management Interval History: 08/07/2024 Patient presents for follow up exam. Last visit was on 03-06-24 and patient continues with Tegretol (has been more consistent with this for the last 2 weeks). Stopped Strattera and Celexa a couple of months ago. Strattera did not help her focus/concentration. Celexa made her anxious symptoms worse. Has yet to start Vraylar as she was scared. Anxiety: has been increased, has had a few panic attacks, mind racing. Depression: mood is all over the place, fluctuates a lot Irritable. Focus/concentration: distractible Sleep is erratic. Sleeping about 3-10 hours. No nightmares. Appetite: decreased Not exercising. Anhedonic. Motivated at times- depends on what it is for. Aggressive behaviors: verbally Paranoid that everyone is listening to her all of the time. Risky behaviors: careless spending of money, hypersexual Hypomanic/manic episodes: last manic spell was a month ago and it lasted a week or so AVH: heard a banging noise outside the other night. Suicidal ideations/homicidal ideations: denies Current stressors: daughter's behavior, being home all of the time, episodes of accelerated heart rate (has seen Cardiology), finances Current psychotherapy: seefrancis [facility] at [facility] weekly Previous Visit: 03/06/2024 Patient presents for follow up exam. Last visit was on 10-31-23 and patient continues with Tegretol, Strattera, and Celexa. Has not been taking Buspar as she feels it makes her mood worse. Anxiety: is horrible, panic attacks here and there, mind races Depression: mood is horrible and irritable. Irritability: easily annoyed and agitated. Mood fluctuates. Focus/concentration: is not able to focus on anything. Sleep is horrible. Sleeps nonstop or she cannot sleep. No nightmares. Mind is racing too much to fall asleep. Appetite: decreased Anhedonic part of the time. Motivated to get out of her house in order to not do anything. Aggressive behaviors: yelling Paranoid a little bit that people are hearting what she says when she is talking about them. Risky behaviors: hypersexual, careless spending of money Hypomanic/manic episodes: nothing recently AVH: none Suicidal ideations/homicidal ideations: denies Current stressors: mother is going through a divorce and has mental issues, finances Current psychotherapy: sees Ana at [facility] roughly weekly Current Medications: Outpatient Medications Prior to Visit Medication Sig Dispense Refill cariprazine (VRAYLAR) 1.5 mg capsule Take 1 (one) capsule (1.5 mg total) by mouth daily . 30 capsule 1 atomoxetine (STRATTERA) 80 MG capsule Take 1 (one) capsule (80 mg total) by mouth daily . 30 capsule 1 carBAMazepine (TEGretol XR) 400 MG 12 hr tablet Take 1 (one) tablet (400 mg total) by mouth 2 (two)times a day . 60 tablet 1 citalopram (CELEXA) 20 MG tablet Take 1 (one) tablet (20 mg total) by mouth nightly . 30 tablet 1 No facility-administered medications prior to visit. control: none Lethality: Denies suicidal or homicidal ideations. Psychiatric ROS: Negative unless noted above. Review of Systems: Constitutional: Denies fever, chills, diaphoresis, malaise Eyes: Denies blurred vision, double vision ENT: Denies nasal congestion, sore throat, ear pain Neurological: Denies headache, photophobia, weakness, numbness CVS: Denies chest pain or palpitations Respiratory: Denies dyspnea or cough Musculoskeletal: Denies joint pain or muscle aches GI: Denies nausea, vomiting, constipation, or diarrhea : Denies urinary urgency, frequency, or burning Integumentary: Denies itching or rash Endocrine: Denies heat/cold intolerance or weight loss/weight gain Physical Exam: General: Alert and oriented to person, place, and time. Is in no acute distress. Well developed, hydrated, and nourished. Appears stated age. Skin: Skin is warm, dry and intact without rashes or lesions. Appropriate color for ethnicity. Nailbeds pink with no cyanosis or clubbing. Head: The head is normocephalic and atraumatic. Eyes: PERRLA Neck: Supple Respiratory: Respirations are non labored. Musculoskeletal: Active ROM in all four extremities. Neurological: Motor function is normal in upper and lower extremities. No gait abnormalities are appreciated. Vitals: 08/07/24 0939 BP: 110/80 BP Location: Left arm Patient Position: Sitting BP Cuff Size: X-large Adult Pulse: 96 Resp: 16 Temp: 98 F (36.7 C) TempSrc: Infrared SpO2: 98% Weight: 94.4 kg (208 lb 3.2 oz) Height: 5' 1 BMI 39.4 Mental Status Evaluation: General Appearance & Behavior: age appropriate, pleasant, cooperative, good eye contact Grooming & Hygiene: street clothes Psychomotor Activity: no psychomotor abnormalities or muscle atrophy noted Speech: hyperverbal Flow of Thought: linear and goal directed Thought Associations: Intact Content of Thought: No evidence of SI/HI, auditory hallucinations, and paranoia Mood: All over the place Affect: elevated Insight: intact Judgment: intact Orientation: alert and oriented to person, place, time, and circumstances Memory: intact recent and remote Attention: intact Concentration: intact Language: fluent Fund of Knowledge: estimated average intelligence AIMS exam completed: No abnormal involuntary movements noted Assessment and Plan/Recommendations Diagnosis/Medications/Plan: Diagnoses and all orders for this visit: Bipolar 1 disorder (HCC) PHQ-9: 15 indicating a moderate level. Mood is irritable, anxious, and fluctuating. Patient agreeable in starting Vraylar at this time. Reviewed possible side effects of new medication with patient. Voiced understanding. Patient agreesto follow up as instructed to assess for efficacy. Informed consent for the initiation of a psychotropic medication was obtained from the patient. Conversation included current diagnosis, recommendations, expected benefits, associated risks, and alternative treatments, including no treatment. Educated patient on the black box warning of increased suicidal ideations in patients under the age of 25 with the use of psychotropic medications with the patient's comprehension. Patient voluntarily chooses to begin treatment with medication today. Will continue with Tegretol. Self care activities advised: good sleep hygiene, daily exercise, and healthy eating. Pt advised to seek immediate assistance for any SI/HI or aggressive behaviors. Pt voiced understanding. - carBAMazepine (TEGretol XR) 400 MG 12 hr tablet; Take 1 (one) tablet (400 mg total) by mouth 2 (two) times a day . [facility] current use of 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 - Lipid Panel; Future Borderline personality disorder (HCC) Continue with psychotherapy. MATILDA (generalized anxiety disorder) MATILDA-7: 18 indicating a severe level. Anxiety is elevated. PTSD (post-traumatic stress disorder) No nightmares. Adult ADHD Will await mood stabilization before addressing this. Methylenetetrahydrofolate reductase (MTHFR) deficiency (HCC) - levomefolate calcium 15 mg Tab; Take 1 (one) tablet (15 mg total) by mouth daily . Follow up in: Three weeks or sooner if needed -Chart reviewed. -OARRS reviewed. - Any available laboratory/imaging studies reviewed. - Past psychiatric history obtained. This patient is being prescribed one antipsychotic. Diagnostic work up including: BMI, blood pressure, hemoglobin A1c or blood glucose, and TSH have been completed in the past year performed within [facility] and available in [facility]. Glucose <126mg/dL, no indication of impaired glucose tole harvinder or insulin resistance in fasting or nonfasting state. Lipid panel was ordered at this visit and patient was advised to complete ELLE. *If the patient has been diagnosed with diabetes, they were made aware of the risk for weight gain,which may result in an increase in glucose/lipids. Diet and exercise is strongly recommended. The patient verbalized understanding of this warning and agrees to continue with plan. 03/06/2024 9:00 AM 08/07/2024 9:00 AM MATILDA-7 MATILDA-7 Score 20 18 03/06/2024 9:00 AM 08/07/2024 9:00 AM PHQ-9 PHQ-9 Total Score 14 15 Education: Continue medication as prescribed. Please report any side effects or intolerability of the medication. Report any new or worsening symptoms. Physical health: Maintain good physical health through exercise, adequate sleep, hydration, and well balanced meals. Avoid drug use, excess alcohol consumption, and use of nicotine. Psychotherapy: Talk about your mental health with a professional or other supportive people in yourlife. Work on social connections and interacting with others. Relaxation: Maintain a peaceful mind through relaxation techniques such as, meditation, mindfulness, yoga, stretching, and deep breathing exercises. Stay positive: Remember that you have things in your life to be thankful for. Gratitude is a way tokeep a positive mindset. Journaling your thoughts and feelings on paper can help release the mind of the daily stressors or negative thoughts that may be affecting your mental health. Try to journal 3 things you are thankful for or 3 positives that happened to you each day. Screen time/social media: Please try to limit your screen time of the phone, TV, or computer. Excessive or prolonged socia media can impact your mental health negatively. Spend time outdoors when possible. [place] has natural mood boosting qualities and may help improve feelings of anxiety, stress, and depression. Seek emergent help for any worsening of depression or thoughts of harming self or others. Recommend aerobic exercise, if physically able to do so. This includes, walking, hiking, running/jogging, cycling, swimming, skiing, or resistance training (upper and lower body). Please strive for aerobic exercise, 5-7 days per week. Increase time as tolerated, for a goal of at least 30-45 minutesper session. Treatment options and alternatives reviewed with patient. Risks, benefits, side effects of all psychiatric medications discussed with patient and informed consent obtained. All questions were answered. Goals: Improve and/or stabilize mood. Improve anxiety. Improve symptoms of depression. Improve sleep. Improve coping skills. Improve interpersonal skills. Prevent psychiatric hospitalization. Candis Saunders CNP, PMHNP 08/07/2024 10:20 AM documented in this [id number] NoteBehavioral Health Outpatient Progress Note Patient Name: Rohan Mccartney MR #: [id number] : 2000 Chief Complaint: Medication and symptom review/management Interval History: 08/07/2024 Patient presents for follow up exam. Last visit was on 03-06-24 and patient continues with Tegretol (has been more consistent with this for the last 2 weeks). Stopped Strattera and Celexa a couple of months ago. Strattera did not help her focus/concentration. Celexa made her anxious symptoms worse. Has yet to start Vraylar as she was scared. Anxiety: has been increased, has had a few panic attacks, mind racing. Depression: mood is all over the place, fluctuates a lot Irritable. Focus/concentration: distractible Sleep is erratic. Sleeping about 3-10 hours. No nightmares. Appetite: decreased Not exercising. Anhedonic. Motivated at times- depends on what it is for. Aggressive behaviors: verbally Paranoid that everyone is listening to her all of the time. Risky behaviors: careless spending of money, hypersexual Hypomanic/manic episodes: last manic spell was a month ago and it lasted a week or so AVH: heard a banging noise outside the other night. Suicidal ideations/homicidal ideations: denies Current stressors: daughter's behavior, being home all of the time, episodes of accelerated heart rate (has seen Cardiology), finances Current psychotherapy: sees Ana at [facility] weekly Previous Visit: 03/06/2024 Patient presents for follow up exam. Last visit was on 10-31-23 and patient continues with Tegretol, Strattera, and Celexa. Has not been taking Buspar as she feels it makes her mood worse. Anxiety: is horrible, panic attacks here and there, mind races Depression: mood is horrible and irritable. Irritability: easily annoyed and agitated. Mood fluctuates. Focus/concentration: is not able to focus on anything. Sleep is horrible. Sleeps nonstop or she cannot sleep. No nightmares. Mind is racing too much to fall asleep. Appetite: decreased Anhedonic part of the time. Motivated to get out of her house in order to not do anything. Aggressive behaviors: yelling Paranoid a little bit that people are hearting what she says when she is talking about them. Risky behaviors: hypersexual, careless spending of money Hypomanic/manic episodes: nothing recently AVH: none Suicidal ideations/homicidal ideations: denies Current stressors: mother is going through a divorce and has mental issues, finances Current psychotherapy: sees Ana at [facility] roughly weekly Current Medications: Outpatient Medications Prior to Visit Medication Sig Dispense Refill cariprazine (VRAYLAR) 1.5 mg capsule Take 1 (one) capsule (1.5 mg total) by mouth daily . 30 capsule 1 atomoxetine (STRATTERA) 80 MG capsule Take 1 (one) capsule (80 mg total) by mouth daily . 30 capsule 1 carBAMazepine (TEGretol XR) 400 MG 12 hr tablet Take 1 (one) tablet (400 mg total) by mouth 2 (two) times a day . 60 tablet 1 citalopram (CELEXA) 20 MG tablet Take 1 (one) tablet (20 mg total) by mouth nightly . 30 tablet 1 No facility-administered medications prior to visit. control: none Lethality: Denies suicidal or homicidal ideations. Psychiatric ROS: Negative unless noted above. Review of Systems: Constitutional: Denies fever, chills, diaphoresis, malaise Eyes: Denies blurred vision, double vision ENT: Denies nasal congestion, sore throat, ear pain Neurological: Denies headache, photophobia, weakness, numbness CVS: Denies chest pain or palpitations Respiratory: Denies dyspnea or cough Musculoskeletal: Denies joint pain or muscle aches GI: Denies nausea, vomiting, constipation, or diarrhea : Denies urinary urgency, frequency, or burning Integumentary: Denies itching or rash Endocrine: Denies heat/cold intolerance or weight loss/weight gain Physical Exam: General: Alert and oriented to person, place, and time. Is in no acute distress. Well developed, hydrated, and nourished. Appears stated age. Skin: Skin is warm, dry and intact without rashes or lesions. Appropriate color for ethnicity. Nailbeds pink with no cyanosis or clubbing. Head: The head is normocephalic and atraumatic. Eyes: PERRLA Neck: Supple Respiratory: Respirations are non labored. Musculoskeletal: Active ROM in all four extremities. Neurological: Motor function is normal in upper and lower extremities. No gait abnormalities are appreciated. Vitals: 08/07/24 0939 BP: 110/80 BP Location: Left arm Patient Position: Sitting BP Cuff Size: X-large Adult Pulse: 96 Resp: 16 Temp: 98 degrees F (36.7 degrees C) TempSrc: Infrared SpO2: 98% Weight: 94.4 kg (208 lb 3.2 oz) Height: 5' 1 BMI 39.4 Mental Status Evaluation: General Appearance & Behavior: age appropriate, pleasant, cooperative, good eye contact Grooming & Hygiene: street clothes Psychomotor Activity: no psychomotor a (more content not included)...[facility]01-13-2025 NotePatient ID: Rohan Mccartney is a 23 y.o. female. Subjective Chief Complaint Patient presents with Gynecologic Exam New patient annual, last pap 12/14/22 HPI: Rohan Mccartney is a 23 y.o. female presents for routine annual exam, with complaints of AUB, urinary frequency, and HR issues. She states she stopped in June of 2024 and was having random periods prior. She did have a normal period in July of 2024. She states she has been having HR issues since her delivery. She was diagnosed with PP pre-e and feels like ever since that time she deals with instances of palpitations, during these times she notices blurry vision, dizziness, SOB, and feels like she could pass out. She has quit working due to this. She states she saw cardiology at [facility] but feels like she did not get answers. She does track her HR and notices it is very variable sometimes in the 30-40's and other times in the 130-140's despite not doing strenuous work or any change in activity. Her urinary frequency has been going on for about 3-4 days. Otherwise pt is doing well, she states her diet could definitely be better she only eats 1 meal a day and snacks intermittently. She tries to stay active but has been less active due to her HR issues she is having. She is having periods, sporadic before due to but stopped in June. She is sexually active, denies any new partners, She does admit to some dyspareunia at times mostly up in the abdomen with penetration. Denies any issues with bowels. Denies any fhx of colon cancer. She does have a fhx of breast cancer in her paternal aunt at age 57 and ovarian cancer in her mother at age 30. OB History: OB History 4 Para 2 Term 1 1 AB 1 Living 2 SAB IAB Ectopic Multiple Live Births 2 Menstrual History: Patient's last menstrual period was 07/24/2024. The following portions of the patient's history were reviewed and updated as appropriate: allergies, current medications, past medical history, past social history, past surgical history and problem list. Past Medical History: Diagnosis Date Anxiety Bipolar 1 disorder (HCC) Borderline personality disorder (HCC) Depression Irritable bowel syndrome Major depressive disorder Miscarriage within last 12 months Polycystic ovarian disease depression Preeclampsia complicating hypertension PTSD (post-traumatic stress disorder) 08/21/2023 Review of Systems Constitutional: Negative for activity change, chills, fatigue and unexpected weight change. HENT: Negative for congestion and sore throat. Respiratory: Negative for chest tightness and shortness of breath. Cardiovascular: Negative for chest pain. Gastrointestinal: Negative for abdominal pain, constipation, diarrhea, nausea and vomiting. Genitourinary: Positive for frequency and menstrual problem. Negative for dyspareunia, dysuria, pelvic pain, vaginal bleeding, vaginal discharge and vaginal pain. Neurological: Negative for light-headedness and headaches. Psychiatric/Behavioral: The patient is not nervous/anxious. Objective BP 107/71 Pulse 85 Wt 94.2 kg (207 lb 11.2 oz) LMP 07/24/2024 BMI 39.24 kg/m Physical Exam Vitals reviewed. Constitutional: General: She is awake. She is not in acute distress. Appearance: Normal appearance. She is well-developed. HENT: Head: Normocephalic. Eyes: General: Lids are normal. Conjunctiva/sclera: Conjunctivae normal. Neck: Thyroid: No thyroid mass, thyromegaly or thyroid tenderness. Cardiovascular: Rate and Rhythm: Normal rate and regular rhythm. Heart sounds: Normal heart sounds. No murmur heard. No friction rub. No gallop. Pulmonary: Effort: Pulmonary effort is normal. No respiratory distress. Breath sounds: Normal breath sounds. No stridor. No decreased breath sounds, wheezing, rhonchi or rales. Chest: Chest wall: No mass, lacerations, deformity, swelling or tenderness. Breasts: Breasts are symmetrical. Right: Normal. No inverted nipple, mass, nipple discharge, skin change or tenderness. Left: Normal. No inverted nipple, mass, nipple discharge, skin change or tenderness. Abdominal: General: Bowel sounds are normal. There is no distension. Palpations: Abdomen is soft. There is no mass. Tenderness: There is no abdominal tenderness. Genitourinary: General: Normal vulva. Exam position: Supine. Pubic Area: No rash. Labia: Right: No rash, tenderness, lesion or injury. Left: No rash, tenderness, lesion or injury. Urethra: No urethral pain or urethral swelling. Vagina: Normal. No vaginal discharge, erythema, tenderness, bleeding or lesions. Cervix: No cervical motion tenderness, discharge, friability, erythema or cervical bleeding. Uterus: Normal. Not enlarged, not fixed and not tender. Adnexa: Right adnexa normal and left adnexa normal. Right: No mass, tenderness or (more content not included)...[facility]01-13-2025 History of Present illness Narrative* Joshua De La Torre, ALLYSSA - 08/04/2024 9:57 AM EST Patient ID: Rohan Mccartney is a 23 y.o. female. Subjective Chief Complaint Patient presents with Gynecologic Exam New patient annual, last pap 12/14/22 HPI: Rohan Mccartney is a 23 y.o. female presents for routine annual exam, with complaints of AUB, urinary frequency, and HR issues. She states she stopped in June of 2024 and was having random periods prior. She did have a normal period in July of 2024. She states she has beenhaving HR issues since her delivery. She was diagnosed with PP pre-e and feels like ever since thattime she deals with instances of palpitations, during these times she notices blurry vision, dizziness, SOB, and feels like she could pass out. She has quit working due to this. She states she saw cardiology at [facility] but feels like she did not get answers. She does track her HR and notices it is very variable sometimes in the 30-40's and other times in the 130-140's despite not doing strenuous work or any change in activity. Her urinary frequency has been going on for about 3-4 days. Otherwise pt is doing well, she states her diet could definitely be better she only eats 1 meal a day and snacks intermittently. She tries to stay active but has been less active due to her HR issuesshe is having. She is having periods, sporadic before due to but stopped in June. She is sexually active, denies any new partners, She does admit to some dyspareunia at times mostly up in the abdomen with penetration. Denies any issues with bowels. Denies any fhx of colon cancer. She does have a fhx of breast cancer in her paternal aunt at age 57 and ovarian cancerin her mother at age 30. OB History: OB History 4 Para 2 Term 1 1 AB 1 Living 2 SAB IAB Ectopic Multiple Live Births 2 Menstrual History: Patient's last menstrual period was 07/24/2024. The following portions of the patient's history were reviewed and updated as appropriate: allergies, current medications, past medical history, past social history, past surgical history and problem list. Past Medical History: Diagnosis Date Anxiety Bipolar 1 disorder (HCC) Borderline personality disorder (HCC) Depression Irritable bowel syndrome Major depressive disorder Miscarriage within last 12 months Polycystic ovarian disease depression Preeclampsia complicating hypertension PTSD (post-traumatic stress disorder) 08/21/2023 Review of Systems Constitutional: Negative for activity change, chills, fatigue and unexpected weight change. HENT: Negative for congestion and sore throat. Respiratory: Negative for chest tightness and shortness of breath. Cardiovascular: Negative for chest pain. Gastrointestinal: Negative for abdominal pain, constipation, diarrhea, nausea and vomiting. Genitourinary: Positive for frequency and menstrual problem. Negative for dyspareunia, dysuria, pelvic pain, vaginal bleeding, vaginal discharge and vaginal pain. Neurological: Negative for light-headedness and headaches. Psychiatric/Behavioral: The patient is not nervous/anxious. Objective BP 107/71 Pulse 85 Wt 94.2 kg (207 lb 11.2 oz) LMP 07/24/2024 BMI 39.24 kg/m Physical Exam Vitals reviewed. Constitutional: General: She is awake. She is not in acute distress. Appearance: Normal appearance. She is well-developed. HENT: Head: Normocephalic. Eyes: General: Lids are normal. Conjunctiva/sclera: Conjunctivae normal. Neck: Thyroid: No thyroid mass, thyromegaly or thyroid tenderness. Cardiovascular: Rate and Rhythm: Normal rate and regular rhythm. Heart sounds: Normal heart sounds. No murmur heard. No friction rub. No gallop. Pulmonary: Effort: Pulmonary effort is normal. No respiratory distress. Breath sounds: Normal breath sounds. No stridor. No decreased breath sounds, wheezing, rhonchi or rales. Chest: Chest wall: No mass, lacerations, deformity, swelling or tenderness. Breasts: Breasts are symmetrical. Right: Normal. No inverted nipple, mass, nipple discharge, skin change or tenderness. Left: Normal. No inverted nipple, mass, nipple discharge, skin change or tenderness. Abdominal: General: Bowel sounds are normal. There is no distension. Palpations: Abdomen is soft. There is no mass. Tenderness: There is no abdominal tenderness. Genitourinary: General: Normal vulva. Exam position: Supine. Pubic Area: No rash. Labia: Right: No rash, tenderness, lesion or injury. Left: No rash, tenderness, lesion or injury. Urethra: No urethral pain or urethral swelling. Vagina: Normal. No vaginal discharge, erythema, tenderness, bleeding or lesions. Cervix: No cervical motion tenderness, discharge, friability, erythema or cervical bleeding. Uterus: Normal. Not enlarged, not fixed and not tender. Adnexa: Right adnexa normal and left adnexa normal. Right: No mass, tenderness or fullness. Left: No mass, tenderness or fullness. Rectum: Normal. Musculoskeletal: General: Normal range of motion. Cervical back: Normal range of motion and neck supple. Right lower leg: No edema. Left lower leg: No edema. Lymphadenopathy: Upper Body: Right upper body: No supraclavicular or axillary adenopathy. Left upper body: No supraclavicular or axillary adenopathy. Lower Body: No right inguinal adenopathy. No left inguinal adenopathy. Skin: General: Skin is warm and dry. Neurological: Mental Status: She is alert and oriented to person, place, and time. Psychiatric: Mood and Affect: Mood normal. Speech: Speech normal. Behavior: Behavior normal. Thought Content: Thought content normal. Judgment: Judgment normal. Assessment/Plan: Diagnoses and all orders for this visit: Well woman exam with routine gynecological exam - Rohan Mccartney is a 23 y.o. pt who presents for routine annual exam. Exam wnl, pap UTD, pt offered STD screening, pt declines. SBE reviewed BC- none currently. Pt is a non- smoker, advised healthydiet and exercise. RTO 1yr or PRN Secondary oligomenorrhea - POC , Urine - likely related to BF, advised pt to monitor for a few months to see if cycle returns to normal asshe just stopped last month. Urinary frequency - POC urinalysis dipstick - Urine Aerobic Culture; Future - Urine Aerobic Culture Palpitations - TSH with Reflex Free T4; Future - CBC and Differential; Future - Comprehensive Metabolic Panel; Future - Ambulatory referral to Cardiology; Future - Comprehensive Metabolic Panel - TSH with Reflex Free T4 documented in this [id number] History of Present illness Narrative* Hui Nagy MA - 03/06/2024 1:29 PM EDT PA request for [id number] (Vraylar 1.5mg) was approved for 365 days. The PA# assigned is [id number]. March 06, 2024 to March 05, 2025 documented in this [id number] History of Present illness Narrative* Candis Saunders CNP - 03/06/2024 9:00 AM EDT Images from the original note were not included. Behavioral Health Outpatient Progress Note Patient Name: Rohan Mccartney MR #: [id number] : 2000 Chief Complaint: Medication and symptom review/management Interval History: 03/06/2024 Patient presents for follow up exam. Last visit was on 10-31-23 and patient continues with Tegretol, Strattera, and Celexa. Has not been taking Buspar as she feels it makes her mood worse. Anxiety: is horrible, panic attacks here and there, mind races Depression: mood is horrible and irritable. Irritability: easily annoyed and agitated. Mood fluctuates. Focus/concentration: is not able to focus on anything. Sleep is horrible. Sleeps nonstop or she cannot sleep. No nightmares. Mind is racing too much to fall asleep. Appetite: decreased Anhedonic part of the time. Motivated to get out of her house in order to not do anything. Aggressive behaviors: yelling Paranoid a little bit that people are hearting what she says when she is talking about them. Risky behaviors: hypersexual, careless spending of money Hypomanic/manic episodes: nothing recently AVH: none Suicidal ideations/homicidal ideations: denies Current stressors: mother is going through a divorce and has mental issues, finances Current psychotherapy: sees Ana at [facility] roughly weekly Previous Visit: 10/31/2023 Patient presents for follow up exam. Last visit was on 09-19-23 and patient continues with Tegretol, Strattera, Buspar, and Celexa. Genesite results were requested with patient signing an ETHEL at previous visit. 18 month old still at night. Wondering if she is an angry stage of grief following the of her ex on 09-01-23. Anxiety: has been really anxious, constantly worried about everything- has always been this way, but has worsened. Leaving her home raises her anxious feelings. Worries about bad things happening to her kids and her fiance. No panic attacks. Mind races all of the time and worsens at night. Depression: mood is irritable. Feels on edge all of the time. Has increased lately. Mood fluctuatesa lot. Irritability: easily annoyed and agitated. Focus/concentration: has had some improvement with increase in Strattera but it is not near controlled as to where it used to be. Sleep: hard to fall asleep and hard to stay asleep, no nightmares, gets about 6 hours. No anhedonia. Has some motivation. Aggressive behaviors: yelling Paranoid that people are talking about her. Has always felt this way. Risky behaviors: careless spending of money. Hypomanic/manic episodes: felt manic a couple of days ago that lasted just one day. AVH: none Suicidal ideations/homicidal ideations: denies Current stressors: work, life, money, not having support other than her fiance. Current psychotherapy: sees Ana at [facility] roughly weekly Current Medications: Outpatient Medications Prior to Visit Medication Sig Dispense Refill atomoxetine (STRATTERA) 80 MG capsule Take 1 (one) capsule (80 mg total) by mouth daily . 30 capsule 0 carBAMazepine (TEGretol XR) 400 MG 12 hr tablet Take 1 (one) tablet (400 mg total) by mouth 2 (two)times a day . 60 tablet 0 citalopram (CELEXA) 20 MG tablet Take 1 (one) tablet (20 mg total) by mouth nightly . 30 tablet 0 busPIRone (BUSPAR) 7.5 MG tablet Take 1 (one) tablet (7.5 mg total) by mouth 3 (three) times a day . (Patient not taking: Reported on 03/06/2024 .) 90 tablet 1 cholecalciferol, vitamin D3, (Vitamin D3) 5,000 unit Tab tablet Take 1 (one) tablet (5,000 Units total) by mouth daily . (Patient not taking: Reported on 03/06/2024 .) 30 tablet 3 diazoxide (PROGLYCEM) 50 mg/mL suspension Take 13.5 mL (675 mg total) by mouth daily . (Patient nottaking: Reported on 03/06/2024 .) 300 mL 1 meclizine (ANTIVERT) 12.5 mg tablet Take 1 (one) tablet (12.5 mg total) by mouth 3 (three) times a day as needed for nausea or dizziness . (Patient not taking: Reported on 03/06/2024 .) 30 tablet 0 No facility-administered medications prior to visit. control: none Lethality: Denies suicidal or homicidal ideations. Psychiatric ROS: Negative unless noted above. Review of Systems: Constitutional: Denies fever, chills, diaphoresis, malaise Eyes: Denies blurred vision, double vision ENT: Denies nasal congestion, sore throat, ear pain Neurological: Denies headache, photophobia, weakness, numbness CVS: Denies chest pain or palpitations Respiratory: Denies dyspnea or cough Musculoskeletal: Denies joint pain or muscle aches GI: Denies nausea, vomiting, constipation, or diarrhea : Denies urinary urgency, frequency, or burning Integumentary: Denies itching or rash Endocrine: Denies heat/cold intolerance or weight loss/weight gain Physical Exam: General: Alert and oriented to person, place, and time. Is in no acute distress. Well developed, hydrated, and nourished. Appears stated age. Skin: Skin is warm, dry and intact without rashes or lesions. Appropriate color for ethnicity. Nailbeds pink with no cyanosis or clubbing. Head: The head is normocephalic and atraumatic. Eyes: PERRLA Neck: Supple Respiratory: Respirations are non labored. Musculoskeletal: Active ROM in all four extremities. Neurological: Motor function is normal in upper and lower extremities. No gait abnormalities are appreciated. Vitals: 03/06/24 0911 BP: 91/67 BP Location: Left arm Patient Position: Sitting BP Cuff Size: X-large Adult Pulse: 90 SpO2: 98% Weight: 93 kg (205 lb) Height: 5' BMI 40 Mental Status Evaluation: General Appearance & Behavior: age appropriate, pleasant, cooperative, good eye contact Grooming & Hygiene: street clothes Psychomotor Activity: no psychomotor abnormalities or muscle atrophy noted Speech: hyperverbal Flow of Thought: linear and goal directed Thought Associations: Intact Content of Thought: No evidence of suicidal ideations/homicidal ideations/psychosis Mood: Horrible, irritable Affect: elevated Insight: intact Judgment: intact Orientation: alert and oriented to person, place, time, and circumstances Memory: intact recent and remote Attention: intact Concentration: intact Language: fluent Fund of Knowledge: estimated average intelligence AIMS exam completed: No abnormal involuntary movements noted Assessment and Plan/Recommendations Diagnosis/Medications/Plan: Diagnoses and all orders for this visit: Bipolar 1 disorder (HCC)/Borderline personality disorder (HCC) PHQ-9: 14 indicating a moderate level. Mood is horrible, anxious, irritable, and fluctuating. Will add on Vraylar as discussed. Reviewed possible side effects of new medication with patient. Voiced understanding. Patient agreesto follow up as instructed to assess for efficacy. Informed consent for the initiation of a psychotropic medication was obtained from the patient. Conversation included current diagnosis, recommendations, expected benefits, associated risks, and alternative treatments, including no treatment. Educated patient on the black box warning of increased suicidal ideations in patients under the age of 25 with the use of psychotropic medications with the patient's comprehension. Patient voluntarily chooses to begin treatment with medication today. Patient agreeable to not breastfeed her child as of now due to Vraylar use. Will continue with Tegretol. Self care activities advised: good sleep hygiene, daily exercise, and healthy eating. Pt advised to seek immediate assistance for any SI/HI or aggressive behaviors. Pt voiced understanding. Continue with psychotherapy. - cariprazine (VRAYLAR) 1.5 mg capsule; Take 1 (one) capsule (1.5 mg total) by mouth daily . - carBAMazepine (TEGretol XR) 400 MG 12 hr tablet; Take 1 (one) tablet (400 mg total) by mouth 2 (two) times a day . MATILDA (generalized anxiety disorder)/PTSD (post-traumatic stress disorder) MATILDA-7: 20 indicating a severe level. Anxiety is elevated. Continue with Celexa. - citalopram (CELEXA) 20 MG tablet; Take 1 (one) tablet (20 mg total) by mouth nightly . Adult ADHD Symptoms not controlled. Will re-evaluate once Linda is in her system and mood stabilizes out more so. Continue with Strattera. - atomoxetine (STRATTERA) 80 MG capsule; Take 1 (one) capsule (80 mg total) by mouth daily . Follow up in: Two weeks or sooner if needed -Chart reviewed. -OARRS reviewed. - Any available laboratory/imaging studies reviewed. - Past psychiatric history obtained. This patient is being prescribed one antipsychotic. Diagnostic work up including: BMI, blood pressure, hemoglobin A1c or blood glucose, TSH, and lipid panel have been completed in the past year performed within [facility] and available in [facility]. Glucose <126mg/dL, no indication of impaired glucose tolerance or insulin resistance in fasting or nonfasting state. *If the patient has been diagnosed with diabetes, they were made aware of the risk for weight gain,which may result in an increase in glucose/lipids. Diet and exercise is strongly recommended. The patient verbalized understanding of this warning and agrees to continue with plan. 10/31/2023 9:00 AM 03/06/2024 9:00 AM MATILDA-7 MATILDA-7 Score 18 20 10/31/2023 9:00 AM 03/06/2024 9:00 AM PHQ-9 PHQ-9 Total Score 16 14 Education: Continue medication as prescribed. Please report any side effects or intolerability of the medication. Report any new or worsening symptoms. Physical health: Maintain good physical health through exercise, adequate sleep, hydration, and well balanced meals. Avoid drug use, excess alcohol consumption, and use of nicotine. Psychotherapy: Talk about your mental health with a professional or other supportive people in yourlife. Work on social connections and interacting with others. Relaxation: Maintain a peaceful mind through relaxation techniques such as, meditation, mindfulness, yoga, stretching, and deep breathing exercises. Stay positive: Remember that you have things in your life to be thankful for. Gratitude is a way tokeep a positive mindset. Journaling your thoughts and feelings on paper can help release the mind of the daily stressors or negative thoughts that may be affecting your mental health. Try to journal 3 things you are thankful for or 3 positives that happened to you each day. Screen time/social media: Please try to limit your screen time of the phone, TV, or computer. Excessive or prolonged socia media can impact your mental health negatively. Spend time outdoors when possible. [place] has natural mood boosting qualities and may help improve feelings of anxiety, stress, and depression. Seek emergent help for any worsening of depression or thoughts of harming self or others. Recommend aerobic exercise, if physically able to do so. This includes, walking, hiking, running/jogging, cycling, swimming, skiing, or resistance training (upper and lower body). Please strive for aerobic exercise, 5-7 days per week. Increase time as tolerated, for a goal of at least 30-45 minutesper session. Treatment options and alternatives reviewed with patient. Risks, benefits, side effects of all psychiatric medications discussed with patient and informed consent obtained. All questions were answered. Goals: Improve and/or stabilize mood. Improve anxiety. Improve symptoms of depression. Improve sleep. Improve coping skills. Improve interpersonal skills. Prevent psychiatric hospitalization. Candis Saunders CNP, PMHNP 03/06/2024 9:42 AM documented in this [id number] NoteBehavioral Health Outpatient Progress Note Patient Name: Rohan Mccartney MR #: [id number] : 2000 Chief Complaint: Medication and symptom review/management Interval History: 03/06/2024 Patient presents for follow up exam. Last visit was on 10-31-23 and patient continues with Tegretol, Strattera, and Celexa. Has not been taking Buspar as she feels it makes her mood worse. Anxiety: is horrible, panic attacks here and there, mind races Depression: mood is horrible and irritable. Irritability: easily annoyed and agitated. Mood fluctuates. Focus/concentration: is not able to focus on anything. Sleep is horrible. Sleeps nonstop or she cannot sleep. No nightmares. Mind is racing too much to fall asleep. Appetite: decreased Anhedonic part of the time. Motivated to get out of her house in order to not do anything. Aggressive behaviors: yelling Paranoid a little bit that people are hearting what she says when she is talking about them. Risky behaviors: hypersexual, careless spending of money Hypomanic/manic episodes: nothing recently AVH: none Suicidal ideations/homicidal ideations: denies Current stressors: mother is going through a divorce and has mental issues, finances Current psychotherapy: sees Ana at [facility] roughly weekly Previous Visit: 10/31/2023 Patient presents for follow up exam. Last visit was on 09-19-23 and patient continues with Tegretol, Strattera, Buspar, and Celexa. Genesite results were requested with patient signing an ETHEL at previous visit. 18 month old still at night. Wondering if she is an angry stage of grief following the of her ex on 09-01-23. Anxiety: has been really anxious, constantly worried about everything- has always been this way, but has worsened. Leaving her home raises her anxious feelings. Worries about bad things happening to her kids and her fiance. No panic attacks. Mind races all of the time and worsens at night. Depression: mood is irritable. Feels on edge all of the time. Has increased lately. Mood fluctuates a lot. Irritability: easily annoyed and agitated. Focus/concentration: has had some improvement with increase in Strattera but it is not near controlled as to where it used to be. Sleep: hard to fall asleep and hard to stay asleep, no nightmares, gets about 6 hours. No anhedonia. Has some motivation. Aggressive behaviors: yelling Paranoid that people are talking about her. Has always felt this way. Risky behaviors: careless spending of money. Hypomanic/manic episodes: felt manic a couple of days ago that lasted just one day. AVH: none Suicidal ideations/homicidal ideations: denies Current stressors: work, life, money, not having support other than her fiance. Current psychotherapy: sees Ana at [facility] roughly weekly Current Medications: Outpatient Medications Prior to Visit Medication Sig Dispense Refill atomoxetine (STRATTERA) 80 MG capsule Take 1 (one) capsule (80 mg total) by mouth daily . 30 capsule 0 carBAMazepine (TEGretol XR) 400 MG 12 hr tablet Take 1 (one) tablet (400 mg total) by mouth 2 (two) times a day . 60 tablet 0 citalopram (CELEXA) 20 MG tablet Take 1 (one) tablet (20 mg total) by mouth nightly . 30 tablet 0 busPIRone (BUSPAR) 7.5 MG tablet Take 1 (one) tablet (7.5 mg total) by mouth 3 (three) times a day . (Patient not taking: Reported on 03/06/2024 .) 90 tablet 1 cholecalciferol, vitamin D3, (Vitamin D3) 5,000 unit Tab tablet Take 1 (one) tablet (5,000 Units total) by mouth daily . (Patient not taking: Reported on 03/06/2024 .) 30 tablet 3 diazoxide (PROGLYCEM) 50 mg/mL suspension Take 13.5 mL (675 mg total) by mouth daily . (Patient not taking: Reported on 03/06/2024 .) 300 mL 1 meclizine (ANTIVERT) 12.5 mg tablet Take 1 (one) tablet (12.5 mg total) by mouth 3 (three) times a day as needed for nausea or dizziness . (Patient not taking: Reported on 03/06/2024 .) 30 tablet 0 No facility-administered medications prior to visit. control: none Lethality: Denies suicidal or homicidal ideations. Psychiatric ROS: Negative unless noted above. Review of Systems: Constitutional: Denies fever, chills, diaphoresis, malaise Eyes: Denies blurred vision, double vision ENT: Denies nasal congestion, sore throat, ear pain Neurological: Denies headache, photophobia, weakness, numbness CVS: Denies chest pain or palpitations Respiratory: Denies dyspnea or cough Musculoskeletal: Denies joint pain or muscle aches GI: Denies nausea, vomiting, constipation, or diarrhea : Denies urinary urgency, frequency, or burning Integumentary: Denies itching or rash Endocrine: Denies heat/cold intolerance or weight loss/weight gain Physical Exam: General: Alert and oriented to person, place, and time. Is in no acute distress. Well developed, hydrated, and nourished. Appears stated age. Skin: Skin is warm, dry and intact without (more content not included)...[facility]08-14-2024 Telephone encounter Note* Telephone Encounter - Wendy Granados CMA - 03/05/2024 1:24 PM EDT Pt scheduled 03/06/24@9am [id number] Miscellaneous Notes* Telephone Encounter - Wendy Granados CMA - 03/05/2024 1:24 PM EDT Pt scheduled 03/06/24@9am * Telephone Encounter - Candis Saunders CNP - 03/05/2024 11:53 AM EDT Patient needs a follow up scheduled. documented in this [id number] Telephone encounter Note* Telephone Encounter - Candis Saunders CNP - 03/05/2024 11:53 AM EDT Patient needs a follow up scheduled. [id number] History of Present illness Narrative* Mirtha Cho APRN-RADHA - 02/14/2024 6:20 PM EDT Patient: Rohan Mccartney Patient : 2000 Patient Age: 23 y.o. Today's Date: 02/14/2024 Provider: ADRIANNA Neal History of Present Illness: Patient here today for evaluation of Chief Complaint Patient presents with Ear Pain Fullness, pressure bilateral ears x3 days Patient presents with B/L ear pain and pressure - onset in the last few days History: Allergies Allergen Reactions Lurasidone Suicidal Other Reaction(s): Other (See Comments), Other (See Comments) Suicidal Suicidal Ideations Latex Rash Ondansetron Nausea and Vomiting Other reaction(s): GI Intolerance Singulair [Montelukast] Hallucination Zoloft [Sertraline] Agitation Topiramate Other Reaction(s): Other (See Comments), Other (See Comments) Depression Past Medical History: Diagnosis Date ADHD age 11 [facility] ADHD (attention deficit hyperactivity disorder) Anxiety age 12 Rubens Rincon borderline personality disorder age 13 [facility] Depression Depression age 12 Hayley Rincon Hx of trichomoniasis IBS (irritable bowel syndrome) IBS (irritable bowel syndrome) age 4 labor 08/24/2018 PTSD (post-traumatic stress disorder) Past Surgical History: Procedure Laterality Date INSERTION EAR TUBE TONSILLECTOMY ADENOIDECTOMY age 14 [place], [place] Social History Tobacco Use Smoking status: Former Current packs/day: 0.00 Types: Cigarettes Quit date: 08/23/2018 Years since quittin.4 Smokeless tobacco: Never Tobacco comments: 1.5-2 PPD Vaping Use Vaping status: Never Used Substance Use Topics Alcohol use: Not Currently Drug use: Never Family History Problem Relation Age of Onset Migraines Mother Stroke Mother Other - Specify Mother restless leg syndrome, anxiety Multiple Sclerosis Mother No known problems Father Other - Specify Sister anxiety Hypertension Maternal Grandmother Diabetes Maternal Grandmother Aneurysm Maternal Grandmother Hypertension Maternal Grandfather Review of Systems: Review of Systems HENT: Positive for ear pain. Physical Exam: Vitals: 02/14/24 1823 BP: 99/66 Pulse: 99 Resp: 16 Temp: 97.1 degrees F (36.2 degrees C) TempSrc: Temporal SpO2: 98% Weight: 92.8 kg (204 lb 9.6 oz) Height: 1.575 m (5' 2) Physical Exam Vitals and nursing note reviewed. HENT: Head: Normocephalic. Right Ear: Tympanic membrane is erythematous. Left Ear: Tympanic membrane is erythematous. Nose: Nose normal. Mouth/Throat: Lips: [place]. Cardiovascular: Rate and Rhythm: Normal rate and regular rhythm. Pulmonary: Effort: Pulmonary effort is normal. Musculoskeletal: Cervical back: Full passive range of motion without pain and normal range of motion. Neurological: Mental Status: She is alert. Current Medications: Current Outpatient Medications: Atomoxetine 60 MG capsule, Take 80 mg by mouth daily., Disp: , Rfl: carBAMazepine 200 MG tablet, 2 tablets 2 times daily., Disp: , Rfl: Citalopram 20 MG tablet, Take by mouth., Disp: , Rfl: Amoxicillin-clavulanate 875-125 MG tablet, Take 1 tablet by mouth every 12 hours for 7 days., Disp:14 tablet, Rfl: 0 Health Maintenance List: Health Maintenance Topic Date Due HEPATITIS C VIRUS SCREENING Never done HPV VACCINE ADOL (1 - 3-dose series) Never done CHLAMYDIA SCREEN 08/24/2019 GONORRHEA SCREEN 08/24/2019 CERVICAL CANCER SCREENING DISCUSSION Never done COVID-19 VACCINE (2022- season) 2023 INFLUENZA VACCINE (1) 03/23/2024 TETANUS 02/23/2032 HEP B VACCINE Completed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 peaceful mind through relaxation techniques such as, meditation, mindfulness, yoga, stretching, and deep breathing exercises. Stay positive: Remember that you have things in your life to be thankful for. Gratitude is a way tokeep a positive mindset. Journaling your thoughts and feelings on paper can help release the mind of the daily stressors or negative thoughts that may be affecting your mental health. Try to journal 3 things you are thankful for or 3 positives that happened to you each day. Screen time/social media: Please try to limit your screen time of the phone, TV, or computer. Excessive or prolonged socia media can impact your mental health negatively. Spend time outdoors when possible. [place] has natural mood boosting qualities and may help improve feelings of anxiety, stress, and depression. Seek emergent help for any worsening of depression or thoughts of harming self or others. Psychotherapy: Discussed with the patient that I recommended regularly scheduled psychotherapy, specifically dialectical behavioral therapy or cognitive behavioral therapy to further assist with the treatment plan.The goals of treatment would be to identify maladaptive thought and behavior patterns, and build improved coping skills. I have provided the patient with resources and recommendations on where to find a therapist based on their insurance. Recommend exercise, if physically able to do so. This includes, walking, hiking, running/jogging, cycling, swimming, skiing, or resistance training (upper and lower body). Please strive for aerobic exercise, 5-7 days per week. Increase time as tolerated, for a goal of at least 30-45 minutes per session. Goals: Improve and/or stabilize mood. Improve anxiety. Improve symptoms of depression. Improve sleep. Improve coping skills. Improve interpersonal skills. Prevent psychiatric hospitalization. Candis Saunders CNP, PMHNP 08/21/2023 2:34 PM documented in this [id number] Instructions* Patient Instructions* Dang Urbina CNP - 05/14/2023 12:50 PM EDT Bilateral Ear Infections Start high dose amoxicillin twice a day fr 10 days You are not infectious to others Ibuprofen as needed for pain Warm moist compresses may help with discomfort. Feel better! documented in this [id number] History of Present illness Narrative* Dang Urbina CNP - 05/14/2023 12:41 PM EDT Images from the original note were not included. Patient Name: [facility] Location: Rohan Mccartney [address] [place] [id number] Date Of : Date Of Visit: 2000 05/14/2023 MRN# Provider: [id number] Dang Urbina CNP Chief Complaint Patient presents with URI Sore throat,cough, ear pain , both ears, no voice x 3 days Assessment & Plan 1. Recurrent acute suppurative otitis media without spontaneous rupture of tympanic membrane of both sides amoxicillin (AMOXIL) 875 MG tablet No follow-ups on file. Medical Decision Making Physical exam is consistent with bilateral acute otitis media. Patient has no associated URI symptoms such as nasal drainage or headache. Throat is mildly erythemic, no adenopathy. Considered bacterial versus viral infection. Considering the patient's ENT history, I will presumably treat for bacterial infection with high-dose amoxicillin twice daily for 10 days. Recommended ibuprofen and warm moist compresses for discomfort. If this becomes recurrent, I recommend her following up with the ENT. Additional Clinical Comments See AVS. Patient pleasant stable upon discharge. Subjective 22 y.o. female presents with URI (Sore throat,cough, ear pain , both ears, no voice x 3 days) Patient presents with a 2-day history of bilateral ear pain, mild sore throat and dry nonproductivecough. Patient's grandmother is in the ICU and she is concerned she may be contagious to her. She does have a history of tonsillectomy as well as tympanostomy tube placement for recurrent otitis media. Tubes removed in 2014. Afebrile, denies headache or vertigo. Review Of Systems Review of Systems Constitutional: Negative for activity change, appetite change, chills, diaphoresis, fatigue and fever. HENT: Positive for ear pain (Bilateral). Negative for congestion, ear discharge, postnasal drip, rhinorrhea and sore throat. Respiratory: Positive for cough (Mild dry nonproductive). Negative for chest tightness, shortness of breath and wheezing. Cardiovascular: Negative for chest pain. Genitourinary: Negative for difficulty urinating. Musculoskeletal: Negative for myalgias. Medical History Past Medical History: Diagnosis Date Anxiety Bipolar 1 disorder (HCC) Borderline personality disorder (HCC) Depression Irritable bowel syndrome Major depressive disorder Miscarriage within last 12 months Polycystic ovarian disease depression Preeclampsia complicating hypertension Past Surgical History: Procedure Laterality Date adnoids TONSILLECTOMY tubes in ears Patient Active Problem List Diagnosis Depression History of delivery, currently Social History Social History Tobacco Use Smoking status: Former Packs/day: 0.50 Years: 0.50 Additional pack years: 0.00 Total pack years: 0.25 Types: Cigarettes Smokeless tobacco: Never Tobacco comments: 2-3 a day Vaping Use Vaping Use: Former Substance Use Topics Alcohol use: Not Currently Drug use: Never Family History Family History Problem Relation Age of Onset Cancer Mother Depression Mother Stroke Mother Vision loss Mother Mental illness Sister Depression Sister Heart disease Sister Kidney disease Sister Learning disabilities Brother Diabetes Maternal Grandmother Hyperlipidemia Maternal Grandfather Hypertension Maternal Grandfather Objective Physical Exam BP 106/73 (BP Location: Left arm, Patient Position: Sitting) Pulse 71 Temp 97.7 F (36.5 C) Resp 14 Ht 4' 11 Wt 93.9 kg (207 lb) SpO2 97% Yes BMI 41.81 kg/m Vision/Hearing Exam:No results found. Physical Exam Vitals and nursing note reviewed. Constitutional: General: She is not in acute distress. Appearance: Normal appearance. She is well-developed. She is not ill-appearing, toxic-appearing or diaphoretic. HENT: Head: Normocephalic and atraumatic. Right Ear: Ear canal and external ear normal. Tenderness present. Tympanic membrane is injected, erythematous and bulging. Left Ear: Ear canal and external ear normal. Tenderness present. Tympanic membrane is injected, erythematous and bulging. Mouth/Throat: Mouth: Mucous membranes are moist. Pharynx: No oropharyngeal exudate or posterior oropharyngeal erythema. Eyes: General: Right eye: No discharge. Left eye: No discharge. Extraocular Movements: Extraocular movements intact. Conjunctiva/sclera: Conjunctivae normal. Cardiovascular: Rate and Rhythm: Normal rate and regular rhythm. Pulses: Normal pulses. Heart sounds: Normal heart sounds. No murmur heard. No friction rub. No gallop. Pulmonary: Effort: Pulmonary effort is normal. No respiratory distress. Breath sounds: Normal breath sounds. Musculoskeletal: Cervical back: Neck supple. Lymphadenopathy: Cervical: No cervical adenopathy. Skin: General: Skin is warm and dry. Capillary Refill: Capillary refill takes less than 2 seconds. Neurological: General: No focal deficit present. Mental Status: She is alert. Cranial Nerves: No cranial nerve deficit. Sensory: No sensory deficit. Motor: No weakness. Coordination: Coordination normal. Psychiatric: Mood and Affect: Mood normal. Procedure Notes Procedures Results No results found for this or any previous visit (from the past 168 hour(s)). No orders to display Orders Placed This Visit No orders of the defined types were placed in this encounter. Medication List At End Of Visit Current Outpatient Medications Medication Sig Dispense Refill carBAMazepine (TEGRETOL) 200 mg tablet 2 (two) tablets (400 mg total) . cholecalciferol, vitamin D3, (Vitamin D3) 5,000 unit Tab tablet Take 1 (one) tablet (5,000 Units total) by mouth daily . 30 tablet 3 citalopram (CELEXA) 20 MG tablet Take by mouth . amoxicillin (AMOXIL) 875 MG tablet Take 1 (one) tablet (875 mg total) by mouth 2 (two) times a day for 10 days . 20 tablet 0 No current facility-administered medications for this visit. Patient Instructions Bilateral Ear Infections Start high dose amoxicillin twice a day fr 10 days You are not infectious to others Ibuprofen as needed for pain Warm moist compresses may help with discomfort. Feel better! documented in this [id number] Instructions* Patient Instructions* Slime Lowe CNP - 04/05/2023 7:43 PM EDT Thank you for choosing [facility] for your healthcare needs today. ER for fever or flu-like symptoms, rapid worsening of the rash or any symptoms of concern. Follow up with PCP/Immigration Officer. * Attachments The following attachments cannot be sent through Care Everywhere. * Mastitis ([place]) documented in this [id number] History of Present illness Narrative* Slime Lowe CNP - 04/05/2023 7:35 PM EDT Images from the original note were not included. Patient Name: [facility] Location: Rohan Mccartney [address] [place] [phone] Date Of : Date Of Visit: 2000 04/05/2023 MRN# Provider: [id number] Slime Lowe CNP Chief Complaint Patient presents with Cellulitis Possible mastitis in right breast x's 2 days painful, Assessment & Plan 1. Mastitis, acute cephALEXin (KEFLEX) 500 MG capsule cephALEXin (KEFLEX) 500 MG capsule No follow-ups on file. Medical Decision Making Client pleasant, non-toxic in NAD with concern for mastitis right breast. Nursing mother noted painin the right breast yesterday and rash today. No fever or flu-like symptoms. Reviewed allergies. Reviewed treatment in Up to Date. See H&P Keflex 500 mg in clinic Keflex 500 mg QID Additional Clinical Comments See AVS Subjective 22 y.o. female presents with Cellulitis (Possible mastitis in right breast x's 2 days painful, ) Client with painful rash to the right breast. Concern for mastitis. Nursing mother. Noted burning pain of the right breast yesterday. Red, warm painful skin today. Rash This is a new problem. The current episode started yesterday. The problem has been gradually worsening since onset. Location: right breast. The rash is characterized by pain and redness. She was exposed to nothing. Review Of Systems Review of Systems Skin: Positive for rash. Right breast/painful rash. Medical History Past Medical History: Diagnosis Date Anxiety Bipolar 1 disorder (HCC) Borderline personality disorder (HCC) Depression Irritable bowel syndrome Major depressive disorder Miscarriage within last 12 months Polycystic ovarian disease depression Preeclampsia complicating hypertension Past Surgical History: Procedure Laterality Date adnoids TONSILLECTOMY tubes in ears Patient Active Problem List Diagnosis Depression History of delivery, currently Social History Social History Tobacco Use Smoking status: Former Packs/day: 0.50 Years: 0.50 Additional pack years: 0.00 Total pack years: 0.25 Types: Cigarettes Smokeless tobacco: Never Tobacco comments: 2-3 a day Vaping Use Vaping Use: Former Substance Use Topics Alcohol use: Not Currently Drug use: Never Family History Family History Problem Relation Age of Onset Cancer Mother Depression Mother Stroke Mother Vision loss Mother Mental illness Sister Depression Sister Heart disease Sister Kidney disease Sister Learning disabilities Brother Diabetes Maternal Grandmother Hyperlipidemia Maternal Grandfather Hypertension Maternal Grandfather Objective Physical Exam BP 109/77 Pulse 93 Temp 99.2 F (37.3 C) (Tympanic) Resp 16 Ht 5' 0.5 Wt 93.9 kg (207 lb) SpO2 95% Yes BMI 39.76 kg/m Vision/Hearing Exam:No results found. Physical Exam Vitals and nursing note reviewed. Constitutional: General: She is not in acute distress. Appearance: Normal appearance. She is not ill-appearing, toxic-appearing or diaphoretic. Cardiovascular: Rate and Rhythm: Normal rate. Pulmonary: Effort: Pulmonary effort is normal. No respiratory distress. Skin: General: Skin is warm and dry. Findings: Rash present. Comments: Client with erythematous, warm/tender area of skin to the right breast directly above thenipple. No firmness or palpable abscess. Neurological: Mental Status: She is alert. Psychiatric: Mood and Affect: Mood normal. Behavior: Behavior normal. Procedure Notes Procedures Results No results found for this or any previous visit (from the past 168 hour(s)). No orders to display Orders Placed This Visit No orders of the defined types were placed in this encounter. Medication List At End Of Visit Current Outpatient Medications Medication Sig Dispense Refill carBAMazepine (TEGRETOL) 200 mg tablet 2 (two) tablets (400 mg total) . cholecalciferol, vitamin D3, (Vitamin D3) 5,000 unit Tab tablet Take 1 (one) tablet (5,000 Units total) by mouth daily . 30 tablet 3 citalopram (CELEXA) 20 MG tablet Take by mouth . amoxicillin (AMOXIL) 500 MG capsule Take 1 (one) capsule (500 mg total) by mouth 3 (three) times a day . (Patient not taking: Reported on 12/14/2022 .) 30 capsule 0 cephALEXin (KEFLEX) 500 MG capsule Take 1 (one) capsule (500 mg total) by mouth once for 1 dose . 1capsule 0 cephALEXin (KEFLEX) 500 MG capsule Take 1 (one) capsule (500 mg total) by mouth 4 (four) times a day for 10 days . 40 capsule 0 fluticasone propionate (FLONASE) 50 mcg/actuation nasal spray Instill 2 (two) sprays into each nostril daily . 16 g 12 No current facility-administered medications for this visit. Patient Instructions Thank you for choosing [facility] for your healthcare needs today. ER for fever or flu-like symptoms, rapid worsening of the rash or any symptoms of concern. Follow up with PCP/Immigration Officer. documented in this [id number] Emergency department Note* Nicol Knutson RN - 03/22/2023 12:40 AM EDT Discharge instructions given to patient. Patient verbalized understanding. All personal belongings given to patient. Denied any further needs. Ambulated with steady gait out of Emergency Department. [facility]08-31-2023 Emergency department Note* Nicol Knutson RN - 03/22/2023 12:40 AM EDT Discharge instructions given to patient. Patient verbalized understanding. All personal belongings given to patient. Denied any further needs. Ambulated with steady gait out of Emergency Department. * Nicol Knutson RN - 03/21/2023 10:06 PM EDT Report received from Mirtha * Vee Pau Clarke, - 03/21/2023 9:43 PM EDT Emergency Department Report [facility] Service Date:.03/22/23 PCP: Hayley Rincon Chief Complaint: Chief Complaint Patient presents with Abdominal Pain To ed with c/o RLQ pain. Pt states it feels like contractions HPI Rohan Mccartney is a 22 y.o. female presents to the ED today due to Right lower quadrant abdominal pain with nausea, vomiting and diarrhea. This 22 old female presents for evaluation of one day of sharp stabbing pain in the periumbilical area that goes into the right lower quadrant and then shoots across her lower abdomen. She has not had a fever. She has not had any appetite today. She is breast-feeding. She denies any urinary symptoms. She denies the possibility of . She denies any chest pain or shortness of breath. She denies any recent travel out of the country. She states she has had so many episodes of diarrhea that she has developed a hemorrhoid. She denies any bloody diarrhea or hematemesis. Review of Systems: Review of Systems All other systems reviewed and are negative. Past Medical History: Past Medical History: Diagnosis Date ADHD age 11 Yoselin Flowers [facility] ADHD (attention deficit hyperactivity disorder) Anxiety age 12 Rubens Rincon borderline personality disorder age 13 [facility] Depression Depression age 12 Hayley Rincon Hx of trichomoniasis IBS (irritable bowel syndrome) IBS (irritable bowel syndrome) age 4 labor 08/24/2018 PTSD (post-traumatic stress disorder) Past Surgical History: Past Surgical History: Procedure Laterality Date INSERTION EAR TUBE TONSILLECTOMY ADENOIDECTOMY age 14 [place], [place] Allergies: Allergies Allergen Reactions Latex Rash Ondansetron Nausea and Vomiting Other reaction(s): GI Intolerance Singulair [Montelukast] Hallucination Zoloft [Sertraline] Agitation Medications: Discharge Medication List as of 03/22/2023 12:37 AM START taking these medications Details Dicyclomine 20 MG tablet Take 1 tablet by mouth every 6 hours. For abdominal spasms Normal Disp-30 tablet, R-0 Ondansetron 4 MG Tab Dispersible tablet Take 1 tablet by mouth every 8 hours as needed for Nausea /Vomiting. Normal Disp-14 tablet, R-0 CONTINUE these medications which have NOT CHANGED Details carBAMazepine 200 MG tablet 2 tablets. Historical Med Citalopram 20 MG tablet Take by mouth. Historical Med cyclobenzaprine 10 MG Tab tablet Take 1 tablet by mouth 3 times daily as needed for Muscle spasms for up to 5 days. Normal Disp-15 tablet, R-0 lurasidone HCl (LATUDA) 20 MG Tab Take 1 tablet by mouth daily. Normal Disp-30 tablet, R-1 naproxen (NAPROSYN) 500 MG Tab tablet Take 1 tablet by mouth 2 times daily with meals for 7 days. Normal Disp-14 tablet, R-0 Family History: Family History Problem Relation Age of Onset Migraines Mother Stroke Mother Other - Specify Mother restless leg syndrome, anxiety Other - Specify Sister anxiety Hypertension Maternal Grandmother Diabetes Maternal Grandmother Hypertension Maternal Grandfather Social History: Social History Socioeconomic History Marital status: Single Spouse name: Not on file Number of children: Not on file Years of education: Not on file Highest education level: Not on file Occupational History Not on file Tobacco Use Smoking status: Former Packs/day: 1.50 Types: Cigarettes Quit date: 08/23/2018 Years since quittin.5 Smokeless tobacco: Never Tobacco comments: 1.5-2 PPD Substance and Sexual Activity Alcohol use: No Drug use: No Sexual activity: Yes Partners: Male control/protection: None Other Topics Concern Not on file Social History Narrative Not on file Social Determinants of Health Financial Resource Strain: Not on file Food Insecurity: Not on file Transportation Needs: Not on file Physical Activity: Not on file Stress: Not on file Social Connections: Not on file Intimate Partner Violence: Not on file Housing Stability: Not on file Physical Exam: Physical Exam Vitals (vital signs reviewed, the patient is afebrile, she has not been tachycardic with a pulse of109, she has normal blood pressure 160/70 and she is not hypoxic pulse ox 99% on room air) reviewed. Constitutional: Appearance: She is obese. Comments: nontoxic female resting comfortably in the stretcher, no respiratory distress, no active vomiting HENT: Head: Normocephalic. Mouth/Throat: Mouth: Mucous membranes are moist. Eyes: General: No scleral icterus. Extraocular Movements: Extraocular movements intact. Cardiovascular: Rate and Rhythm: Normal rate and regular rhythm. Heart sounds: Normal heart sounds. Comments: Regular rate and rhythm S1-S2 at 90 bpm on my exam, no murmurs rubs or gallops appreciated Pulmonary: Effort: Pulmonary effort is normal. Breath sounds: Normal breath sounds. Comments: Clear with good air entry, there is no wheezing rhonchi or rales. Abdominal: General: Bowel sounds are increased. Palpations: Abdomen is soft. Tenderness: There is abdominal tenderness in the right lower quadrant and periumbilical area. Hernia: No hernia is present. Comments: Obese, soft, tenderness in the right lower quadrant and very umbilical area, negative Rovsing sign, no right upper quadrant, epigastric or left upper quadrant tenderness appreciated Skin: General: Skin is warm and dry. Capillary Refill: Capillary refill takes less than 2 seconds. Neurological: General: No focal deficit present. Mental Status: She is alert. Psychiatric: Mood and Affect: Mood normal. Behavior: Behavior normal. Vital Signs During ED Visit Patient Vitals for the past 24 hrs: BP Temp Temp src Pulse Resp SpO2 Height Weight 03/22/23 0039 124/79 -- -- 107 16 -- -- -- 03/21/23 2320 130/80 -- -- 120 18 98 % -- -- 03/21/232018 -- -- -- -- -- -- 1.499 m (4' 11) 96.2 kg (212 lb) 03/21/232017 116/70 98.9 F (37.2 C) Oral 109 18 99 % -- -- Orders/Results: Orders Placed This Encounter CT ABDOMEN/PELVIS WITH CONTRAST CHEM 7 (LYTES,BUN,CREA,GLUC) HEPATIC FUNCTION PANEL LIPASE CBC, EDIF, PLATELET Sodium chloride 0.9% IV solution 1,000 mL Acetaminophen (TYLENOL) tablet 650 mg Ketorolac (TORADOL) injection 30 mg Metoclopramide (REGLAN) injection 10 mg iohexol (OMNIPAQUE) 350 MG/ML injection 75 mL Sodium chloride 0.9% IV solution 75 mL diphenhydrAMINE (BENADRYL) tablet 25 mg Dicyclomine 20 MG tablet Ondansetron 4 MG Tab Dispersible tablet URINALYSIS, MACRO HCG QUALITATIVE, URINE URINE MICROSCOPIC Results for orders placed or performed during the hospital encounter of 03/21/23 CHEM 7 (LYTES,BUN,CREA,GLUC) Result Value Ref Range Glucose 94 70 - 100 MG/DL BUN 19 7 - 20 MG/DL CREATININE SERUM 0.75 0.70 - 1.20 MG/DL SODIUM 139 137 - 145 MMOL/L POTASSIUM 3.9 3.5 - 5.1 MMOL/L CHLORIDE 108 (H) 98 - 107 MMOL/L CARBON DIOXIDE (CO2) 22 22 - 30 MMOL/L ESTIMATED GFR, NON AMER 102 ml/min/1.73sq.m ESTIMATED GFR, 123 ml/min/1.73sq.m GFR COMMENT Average GFR for 20-29 years old = 116. HEPATIC FUNCTION PANEL Result Value Ref Range Albumin 4.7 3.5 - 5.0 G/DL BILIRUBIN, TOTAL 0.6 0.2 - 1.3 MG/DL ALKALINE PHOSPHATASE 70 38 - 126 IU/L AST 31 14 - 36 IU/L BILIRUBIN, DIRECT 0.0 0.0 - 0.4 MG/DL PROTEIN, TOTAL 7.4 6.3 - 8.2 GM/DL ALT 40 (H) <35 IU/L LIPASE Result Value Ref Range LIPASE 70 23 - 300 U/L CBC, EDIF, PLATELET Result Value Ref Range WBC (WHITE BLOOD COUNT) 8.4 3.6 - 11.0 10*3/uL RBC 4.93 4.0 - 5.4 10*6/uL HEMOGLOBIN (HGB) 14.7 12.0 - 16.0 G/DL HEMATOCRIT (HCT) 42.6 36.0 - 48.0 % MEAN CELL VOLUME 86.5 80.0 - 100.0 FL Mean Cell HGB 29.7 26.0 - 35.0 PG MEAN CELL HGB CONCENTRATION 34.4 27.0 - 37.0 G/DL RBC DISTRIBUTION 12.9 11.5 - 14.5 % PLATELET COUNT 250 130 - 400 10*3/uL MEAN PLATELET VOLUME 8.8 7.4 - 11.0 FL DIFFERENTIAL TYPE AUTO DIFF % NEUTROPHILS 82.0 (H) 37.0 - 75.0 % LYMPHOCYTE 11.3 (L) 20.0 - 55.0 % MONOCYTE % 6.2 0.0 - 10.0 % EOSINOPHIL % 0.0 0.0 - 11.0 % BASOPHIL % 0.5 0.0 - 2.0 % Absolute Neutrophil Count 6.9 (H) 1.4 - 6.5 10*3/uL LYMPHOCYTES, ABSOLUTE 0.9 (L) 1.2 - 3.4 10*3/uL MONOCYTES, ABSOLUTE 0.5 0.0 - 0.7 10*3/uL ABSOLUTE EOSINOPHIL COUNT 0.0 0.0 - 0.7 10*3/uL ABSOLUTE BASOPHIL COUNT 0.0 0.0 - 0.2 10*3/uL URINALYSIS, MACRO Result Value Ref Range COLOR, URINE YELLOW YELLOW APPEARANCE, URINE SLIGHTLY CLOUDY (A) CLEAR Specific [place], Urine 1.020 1.010 - 1.025 PH URINE 6.0 5.0 - 7.0 Urine Protein NEGATIVE NEGATIVE mg/dl GLUCOSE, URINE NEGATIVE NEGATIVE mg/dl KETONES, URINE NEGATIVE NEGATIVE mg/dl BILIRUBIN, URINE NEGATIVE NEGATIVE BLOOD, URINE DIPSTICK TRACE-LYSED (A) NEGATIVE NITRITES, URINE NEGATIVE NEGATIVE UROBILINOGEN, URINE 0.2 0.2 - 1.0 E.U./dL LEUKOCYTE ESTERASE, URINE SMALL (A) NEGATIVE HCG QUALITATIVE, URINE Result Value Ref Range HCG, QUALITATIVE, URINE NEGATIVE NEGATIVE URINE MICROSCOPIC Result Value Ref Range WBC, URINE '5 TO 10 NEGATIVE /HPF RBC, URINE 1 TO 5 NEGATIVE /HPF Epithelial Cells UA 10 TO 20 /HPF Mucus NEGATIVE NEGATIVE BACTERIA, URINE 1+ (A) NEGATIVE CRYSTALS, URINE NONE NONE CASTS, URINE NONE NONE /LPF COMMENT, URINE POSSIBLY CONTAMINATED SPECIMEN, CULTURE MUST BE ORDERED SEPARATELY IF DEEMED NECESSARY. Radiographic Imaging CT ABDOMEN/PELVIS WITH CONTRAST Final Result IMPRESSION: 1. No acute process in the abdomen or pelvis. 2. Normal appendix. 3. Fatty liver and hepatosplenomegaly. 4. Cholelithiasis. 5. Right renal cyst. 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 Procedures: Procedures Moderate Sedation Procedure: No ED Summary/MDM This 22 year old female presents for evaluation of right lower quadrant abdominal pain/periumbilical pain radiates to the left lower quadrant. The symptoms started earlier today with nausea, vomitingand diarrhea. The patient states she was having so much diarrhea she ended up having a hemorrhoid. She has not had a fever. She has not had any chest pain or shortness of breath. She is currently breast-feeding. . Abdomen is soft, obese, she did have mild tenderness in the right lower quadrant and the umbilical area. An IV is placed and she was medicated with IV fluids. She was given Reglan because she allegedly had a reaction to IV Zofran. She had an akisthesia reaction to the Reglan and was gi morgan oral Benadryl. She was given 15 mg of IV Toradol for her pain. Routine labs are normal. She hasa normal white count and hemoglobin. She has normal electrolytes. Normal liver function tests and lipase. Urine was contaminated with epithelial cells but does not appear to be infected. CT scan of abdomen and pelvis with IV contrast was ordered to rule out acute appendicitis, colitis or other intra-abdominal conditions and was reviewed by radiology and was negative. Reevaluation the patient states she is feeling better and feels comfortable going home. She is able to take oral Zofran. She was discharged home with her scheduled for oral Zofran and Bentyl. I encouraged her to drink plenty of fluids as she is still breast-feeding and return to emergency department for worsening symptoms or any concerns. At this time it appears that her abdominal pain is likely cramps related to an acute diarrheal illness. Clinical Impression: 1. Lower abdominal pain 2. Diarrhea, unspecified type No follow-ups on file. Discharge Medication List as of 03/22/2023 12:37 AM START taking these medications Details Dicyclomine 20 MG tablet Take 1 tablet by mouth every 6 hours. For abdominal spasms Normal Disp-30 tablet, R-0 Ondansetron 4 MG Tab Dispersible tablet Take 1 tablet by mouth every 8 hours as needed for Nausea /Vomiting. Normal Disp-14 tablet, R-0 Discharge Medication List as of 03/22/2023 12:37 AM An After Visit Summary was printed and given to the patient with above information. . . Vee Clarke DO 03/22/23 0202 [facility]* Nicol Knutson RN - 03/21/2023 10:06 PM EDT Report received from [facility] Physician Emergency department Note* Vee Clarke DO - 03/21/2023 9:43 PM EDT Emergency Department Report [facility] EMERGENCY [facility]PART[facility] Service Date:.03/22/23 PCP: Hayley Rincon Chief Complaint: Chief Complaint Patient presents with Abdominal Pain To ed with c/o RLQ pain. Pt states it feels like contractions HPI Rohan Mccartney is a 22 y.o. female presents to the ED today due to Right lower quadrant abdominal pain with nausea, vomiting and diarrhea. This 22 old female presents for evaluation of one day of sharp stabbing pain in the periumbilical area that goes into the right lower quadrant and then shoots across her lower abdomen. She has not had a fever. She has not had any appetite today. She is breast-feeding. She denies any urinary symptoms. She denies the possibility of . She denies any chest pain or shortness of breath. She denies any recent travel out of the country. She states she has had so many episodes of diarrhea that she has developed a hemorrhoid. She denies any bloody diarrhea or hematemesis. Review of Systems: Review of Systems All other systems reviewed and are negative. Past Medical History: Past Medical History: Diagnosis Date ADHD age 11 [facility] [address] ADHD (attention deficit hyperactivity disorder) Anxiety age 12 Rubens Rincon borderline personality [facility] 13 [facility] Depression age 12 Hayley Rincon Hx of trichomoniasis IBS (irritable bowel syndrome) IBS (irritable bowel syndrome) age 4 labor 08/24/2018 PTSD (post-traumatic stress disorder) Past Surgical History: Past Surgical History: Procedure Laterality Date INSERTION EAR TUBE TONSILLECTOMY ADENOIDECTOMY age 14 [place], [place] Allergies: Allergies Allergen Reactions Latex Rash Ondansetron Nausea and Vomiting Other reaction(s): GI Intolerance Singulair [Montelukast] Hallucination Zoloft [Sertraline] Agitation Medications: Discharge Medication List as of 03/22/2023 12:37 AM START taking these medications Details Dicyclomine 20 MG tablet Take 1 tablet by mouth every 6 hours. For abdominal spasms Normal Disp-30 tablet, R-0 Ondansetron 4 MG Tab Dispersible tablet Take 1 tablet by mouth every 8 hours as needed for Nausea /Vomiting. Normal Disp-14 tablet, R-0 CONTINUE these medications which have NOT CHANGED Details carBAMazepine 200 MG tablet 2 tablets. Historical Med Citalopram 20 MG tablet Take by mouth. Historical Med cyclobenzaprine 10 MG Tab tablet Take 1 tablet by mouth 3 times daily as needed for Muscle spasms for up to 5 days. Normal Disp-15 tablet, R-0 lurasidone HCl (LATUDA) 20 MG Tab Take 1 tablet by mouth daily. Normal Disp-30 tablet, R-1 naproxen (NAPROSYN) 500 MG Tab tablet Take 1 tablet by mouth 2 times daily with meals for 7 days. Normal Disp-14 tablet, R-0 Family History: Family History Problem Relation Age of Onset Migraines Mother Stroke Mother Other - Specify Mother restless leg syndrome, anxiety Other - Specify Sister anxiety Hypertension Maternal Grandmother Diabetes Maternal Grandmother Hypertension Maternal Grandfather Social History: Social History Socioeconomic History Marital status: Single Spouse name: Not on file Number of children: Not on file Years of education: Not on file Highest education level: Not on file Occupational History Not on file Tobacco Use Smoking status: Former Packs/day: 1.50 Types: Cigarettes Quit date: 08/23/2018 Years since quittin.5 Smokeless tobacco: Never Tobacco comments: 1.5-2 PPD Substance and Sexual Activity Alcohol use: No Drug use: No Sexual activity: Yes Partners: Male control/protection: None Other Topics Concern Not on file Social History Narrative Not on file Social Determinants of Health Financial Resource Strain: Not on file Food Insecurity: Not on file Transportation Needs: Not on file Physical Activity: Not on file Stress: Not on file Social Connections: Not on file Intimate Partner Violence: Not on file Housing Stability: Not on file Physical Exam: Physical Exam Vitals (vital signs reviewed, the patient is afebrile, she has not been tachycardic with a pulse of109, she has normal blood pressure 160/70 and she is not hypoxic pulse ox 99% on room air) reviewed. Constitutional: Appearance: She is obese. Comments: nontoxic female resting comfortably in the stretcher, no respiratory distress, no active vomiting HENT: Head: Normocephalic. Mouth/Throat: Mouth: Mucous membranes are moist. Eyes: General: No scleral icterus. Extraocular Movements: Extraocular movements intact. Cardiovascular: Rate and Rhythm: Normal rate and regular rhythm. Heart sounds: Normal heart sounds. Comments: Regular rate and rhythm S1-S2 at 90 bpm on my exam, no murmurs rubs or gallops appreciated Pulmonary: Effort: Pulmonary effort is normal. Breath sounds: Normal breath sounds. Comments: Clear with good air entry, there is no wheezing rhonchi or rales. Abdominal: General: Bowel sounds are increased. Palpations: Abdomen is soft. Tenderness: There is abdominal tenderness in the right lower quadrant and periumbilical area. Hernia: No hernia is present. Comments: Obese, soft, tenderness in the right lower quadrant and very umbilical area, negative Rovsing sign, no right upper quadrant, epigastric or left upper quadrant tenderness appreciated Skin: General: Skin is warm and dry. Capillary Refill: Capillary refill takes less than 2 seconds. Neurological: General: No focal deficit present. Mental Status: She is alert. Psychiatric: Mood and Affect: Mood normal. Behavior: Behavior normal. Vital Signs During ED Visit Patient Vitals for the past 24 hrs: BP Temp Temp src Pulse Resp SpO2 Height Weight 03/22/23 0039 124/79 -- -- 107 16 -- -- -- 03/21/23 2320 130/80 -- -- 120 18 98 % -- -- 03/21/232018 -- -- -- -- -- -- 1.499 m (4' 11) 96.2 kg (212 lb) 03/21/232017 116/70 98.9 F (37.2 C) Oral 109 18 99 % -- -- Orders/Results: Orders Placed This Encounter CT ABDOMEN/PELVIS WITH CONTRAST CHEM 7 (LYTES,BUN,CREA,GLUC) HEPATIC FUNCTION PANEL LIPASE CBC, EDIF, PLATELET Sodium chloride 0.9% IV solution 1,000 mL Acetaminophen (TYLENOL) tablet 650 mg Ketorolac (TORADOL) injection 30 mg Metoclopramide (REGLAN) injection 10 mg iohexol (OMNIPAQUE) 350 MG/ML injection 75 mL Sodium chloride 0.9% IV solution 75 mL diphenhydrAMINE (BENADRYL) tablet 25 mg Dicyclomine 20 MG tablet Ondansetron 4 MG Tab Dispersible tablet URINALYSIS, MACRO HCG QUALITATIVE, URINE URINE MICROSCOPIC Results for orders placed or performed during the hospital encounter of 03/21/23 CHEM 7 (LYTES,BUN,CREA,GLUC) Result Value Ref Range Glucose 94 70 - 100 MG/DL BUN 19 7 - 20 MG/DL CREATININE SERUM 0.75 0.70 - 1.20 MG/DL SODIUM 139 137 - 145 MMOL/L POTASSIUM 3.9 3.5 - 5.1 MMOL/L CHLORIDE 108 (H) 98 - 107 MMOL/L CARBON DIOXIDE (CO2) 22 22 - 30 MMOL/L ESTIMATED GFR, NON AMER 102 ml/min/1.73sq.m ESTIMATED GFR, 123 ml/min/1.73sq.m GFR COMMENT Average GFR for 20-29 years old = 116. HEPATIC FUNCTION PANEL Result Value Ref Range Albumin 4.7 3.5 - 5.0 G/DL BILIRUBIN, TOTAL 0.6 0.2 - 1.3 MG/DL ALKALINE PHOSPHATASE 70 38 - 126 IU/L AST 31 14 - 36 IU/L BILIRUBIN, DIRECT 0.0 0.0 - 0.4 MG/DL PROTEIN, TOTAL 7.4 6.3 - 8.2 GM/DL ALT 40 (H) <35 IU/L LIPASE Result Value Ref Range LIPASE 70 23 - 300 U/L CBC, EDIF, PLATELET Result Value Ref Range WBC (WHITE BLOOD COUNT) 8.4 3.6 - 11.0 10*3/uL RBC 4.93 4.0 - 5.4 10*6/uL HEMOGLOBIN (HGB) 14.7 12.0 - 16.0 G/DL HEMATOCRIT (HCT) 42.6 36.0 - 48.0 % MEAN CELL VOLUME 86.5 80.0 - 100.0 FL Mean Cell HGB 29.7 26.0 - 35.0 PG MEAN CELL HGB CONCENTRATION 34.4 27.0 - 37.0 G/DL RBC DISTRIBUTION 12.9 11.5 - 14.5 % PLATELET COUNT 250 130 - 400 10*3/uL MEAN PLATELET VOLUME 8.8 7.4 - 11.0 FL DIFFERENTIAL TYPE AUTO DIFF % NEUTROPHILS 82.0 (H) 37.0 - 75.0 % LYMPHOCYTE 11.3 (L) 20.0 - 55.0 % MONOCYTE % 6.2 0.0 - 10.0 % EOSINOPHIL % 0.0 0.0 - 11.0 % BASOPHIL % 0.5 0.0 - 2.0 % Absolute Neutrophil Count 6.9 (H) 1.4 - 6.5 10*3/uL LYMPHOCYTES, ABSOLUTE 0.9 (L) 1.2 - 3.4 10*3/uL MONOCYTES, ABSOLUTE 0.5 0.0 - 0.7 10*3/uL ABSOLUTE EOSINOPHIL COUNT 0.0 0.0 - 0.7 10*3/uL ABSOLUTE BASOPHIL COUNT 0.0 0.0 - 0.2 10*3/uL URINALYSIS, MACRO Result Value Ref Range COLOR, URINE YELLOW YELLOW APPEARANCE, URINE SLIGHTLY CLOUDY (A) CLEAR Specific [place], Urine 1.020 1.010 - 1.025 PH URINE 6.0 5.0 - 7.0 Urine Protein NEGATIVE NEGATIVE mg/dl GLUCOSE, URINE NEGATIVE NEGATIVE mg/dl KETONES, URINE NEGATIVE NEGATIVE mg/dl BILIRUBIN, URINE NEGATIVE NEGATIVE BLOOD, URINE DIPSTICK TRACE-LYSED (A) NEGATIVE NITRITES, URINE NEGATIVE NEGATIVE UROBILINOGEN, URINE 0.2 0.2 - 1.0 E.U./dL LEUKOCYTE ESTERASE, URINE SMALL (A) NEGATIVE HCG QUALITATIVE, URINE Result Value Ref Range HCG, QUALITATIVE, URINE NEGATIVE NEGATIVE URINE MICROSCOPIC Result Value Ref Range WBC, URINE '5 TO 10 NEGATIVE /HPF RBC, URINE 1 TO 5 NEGATIVE /HPF Epithelial Cells UA 10 TO 20 /HPF Mucus NEGATIVE NEGATIVE BACTERIA, URINE 1+ (A) NEGATIVE CRYSTALS, URINE NONE NONE CASTS, URINE NONE NONE /LPF COMMENT, URINE POSSIBLY CONTAMINATED SPECIMEN, CULTURE MUST BE ORDERED SEPARATELY IF DEEMED NECESSARY. Radiographic Imaging CT ABDOMEN/PELVIS WITH CONTRAST Final Result IMPRESSION: 1. No acute process in the abdomen or pelvis. 2. Normal appendix. 3. Fatty liver and hepatosplenomegaly. 4. Cholelithiasis. 5. Right renal cyst. 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 Procedures: Procedures Moderate Sedation Procedure: No ED Summary/MDM This 22 year old female presents for evaluation of right lower quadrant abdominal pain/periumbilical pain radiates to the left lower quadrant. The symptoms started earlier today with nausea, vomitingand diarrhea. The patient states she was having so much diarrhea she ended up having a hemorrhoid. She has not had a fever. She has not had any chest pain or shortness of breath. She is currently breast-feeding. . Abdomen is soft, obese, she did have mild tenderness in the right lower quadrant and the umbilical area. An IV is placed and she was medicated with IV fluids. She was given Reglan because she allegedly had a reaction to IV Zofran. She had an akisthesia reaction to the Reglan and was gi morgan oral Benadryl. She was given 15 mg of IV Toradol for her pain. Routine labs are normal. She hasa normal white count and hemoglobin. She has normal electrolytes. Normal liver function tests and lipase. Urine was contaminated with epithelial cells but does not appear to be infected. CT scan of abdomen and pelvis with IV contrast was ordered to rule out acute appendicitis, colitis or other intra-abdominal conditions and was reviewed by radiology and was negative. Reevaluation the patient states she is feeling better and feels comfortable going home. She is able to take oral Zofran. She was discharged home with her scheduled for oral Zofran and Bentyl. I encouraged her to drink plenty of fluids as she is still breast-feeding and return to emergency department for worsening symptoms or any concerns. At this time it appears that her abdominal pain is likely cramps related to an acute diarrheal illness. Clinical Impression: 1. Lower abdominal pain 2. Diarrhea, unspecified type No follow-ups on file. Discharge Medication List as of 03/22/2023 12:37 AM START taking these medications Details Dicyclomine 20 MG tablet Take 1 tablet by mouth every 6 hours. For abdominal spasms Normal Disp-30 tablet, R-0 Ondansetron 4 MG Tab Dispersible tablet Take 1 tablet by mouth every 8 hours as needed for Nausea /Vomiting. Normal Disp-14 tablet, R-0 Discharge Medication List as of 03/22/2023 12:37 AM An After Visit Summary was printed and given to the patient with above information. . . Vee Clarke DO 03/22/[address] [facility]06-[facility] Instructions* Patient Instructions* Dang Urbina CNP - 12/25/2022 10:32 AM EDT Left otitis media and sinus infection Start Augmentin and take twice a day Use Flonase- 2 squirts in each side of nose once daily for 5-7 days All meds fine with nursing your baby documented in this [id number] History of Present illness Narrative* Dang Urbina CNP - 12/25/2022 10:22 AM EDT Images from the original note were not included. Patient Name: [facility] Location: [address] [address] Date Of : Date Of Visit: 2000 12/25/2022 MRN# Provider: [id number] Dang Urbina CNP Chief Complaint Patient presents with Sinus Problem C/o sinus congestion, sore throat, ear pain and burning nasal cavity since last evening. Assessment & Plan 1. Non-recurrent acute suppurative otitis media of right ear without spontaneous rupture of tympanic membrane amoxicillin-clavulanate (Augmentin) 875-125 mg per tablet fluticasone propionate (FLONASE) 50 mcg/actuation nasal spray 2. Sinusitis, unspecified chronicity, unspecified location amoxicillin- clavulanate (Augmentin) 875-125 mg per tablet fluticasone propionate (FLONASE) 50 mcg/actuation nasal spray 3. Former smoker No follow-ups on file. Medical Decision Making Physical exam consistent with left otitis media and sinus infection. The patient shares that she had tympanostomy tubes placed at the age of 14 but has since had them removed. She has had chronic left ear infections. Treatment will include Augmentin twice daily as well as Flonase. The patient is lactating and medications checked and are safe. I encouraged her to follow-up with her PCP in 7 to 10 days for recheck, or sooner if symptoms do not mitigate with the above measures. Patient is stable and in no acute distress upon departure. Additional Clinical Comments Subjective 22 y.o. female presents with Sinus Problem (C/o sinus congestion, sore throat, ear pain and burningnasal cavity since last evening.) Patient presents to the urgent care with a 3-day history of left ear pain, sinus congestion and fatigue. She is currently lactating and nursing her baby. She has a mild cough that is producing clear sputum. She is afebrile at home. Review Of Systems Review of Systems Constitutional: Negative for activity change, appetite change, chills, diaphoresis, fatigue and fever. HENT: Positive for congestion, ear pain (Left ear) and sore throat. Negative for postnasal drip andrhinorrhea. Respiratory: Positive for cough. Negative for chest tightness, shortness of breath and wheezing. Cardiovascular: Negative for chest pain. Genitourinary: Negative for difficulty urinating. Musculoskeletal: Negative for myalgias. Medical History Past Medical History: Diagnosis Date Anxiety Bipolar 1 disorder (HCC) Borderline personality disorder (HCC) Depression Irritable bowel syndrome Major depressive disorder Miscarriage within last 12 months Polycystic ovarian disease depression Preeclampsia complicating hypertension Past Surgical History: Procedure Laterality Date adnoids TONSILLECTOMY tubes in ears Patient Active Problem List Diagnosis Depression History of delivery, currently Social History Social History Tobacco Use Smoking status: Former Packs/day: 0.50 Years: 0.50 Pack years: 0.25 Types: Cigarettes Smokeless tobacco: Never Tobacco comments: 2-3 a day Vaping Use Vaping Use: Former Substance Use Topics Alcohol use: Not Currently Drug use: Never Family History Family History Problem Relation Age of Onset Cancer Mother Depression Mother Stroke Mother Vision loss Mother Mental illness Sister Depression Sister Heart disease Sister Kidney disease Sister Learning disabilities Brother Diabetes Maternal Grandmother Hyperlipidemia Maternal Grandfather Hypertension Maternal Grandfather Objective Physical Exam BP 93/70 Pulse 98 Temp 98.3 F (36.8 C) (Oral) Resp 16 Ht 4' 11 Wt 92.5 kg (204 lb) SpO2 97% Yes BMI 41.20 kg/m Vision/Hearing Exam:No results found. Physical Exam Vitals and nursing note reviewed. Constitutional: General: She is not in acute distress. Appearance: Normal appearance. She is well-developed. She is not ill-appearing, toxic-appearing or diaphoretic. HENT: Head: Normocephalic and atraumatic. Right Ear: Tympanic membrane, ear canal and external ear normal. Left Ear: External ear normal. Tenderness present. Tympanic membrane is injected and erythematous. Mouth/Throat: Lips: [place]. Mouth: Mucous membranes are moist. Pharynx: Oropharynx is clear. Uvula midline. Posterior oropharyngeal erythema (Right-sided) present. No pharyngeal swelling, oropharyngeal exudate or uvula swelling. Eyes: General: Right eye: No discharge. Left eye: No discharge. Extraocular Movements: Extraocular movements intact. Conjunctiva/sclera: Conjunctivae normal. Cardiovascular: Rate and Rhythm: Normal rate and regular rhythm. Heart sounds: Normal heart sounds. Pulmonary: Effort: Pulmonary effort is normal. No respiratory distress. Breath sounds: Normal breath sounds. No wheezing. Musculoskeletal: Cervical back: Neck supple. Lymphadenopathy: Cervical: No cervical adenopathy. Skin: General: Skin is warm and dry. Capillary Refill: Capillary refill takes less than 2 seconds. Neurological: General: No focal deficit present. Mental Status: She is alert and oriented to person, place, and time. Cranial Nerves: No cranial nerve deficit. Sensory: No sensory deficit. Motor: No weakness. Coordination: Coordination normal. Psychiatric: Mood and Affect: Mood normal. Procedure Notes Procedures Results No results found for this or any previous visit (from the past 168 hour(s)). No orders to display Orders Placed This Visit No orders of the defined types were placed in this encounter. Medication List At End Of Visit Current Outpatient Medications Medication Sig Dispense Refill carBAMazepine (TEGRETOL) 200 mg tablet 2 (two) tablets (400 mg total) . cholecalciferol, vitamin D3, (Vitamin D3) 5,000 unit Tab tablet Take 1 (one) tablet (5,000 Units total) by mouth daily . 30 tablet 3 citalopram (CELEXA) 20 MG tablet Take by mouth . amoxicillin (AMOXIL) 500 MG capsule Take 1 (one) capsule (500 mg total) by mouth 3 (three) times a day . (Patient not taking: Reported on 12/14/2022 .) 30 capsule 0 amoxicillin-clavulanate (Augmentin) 875-125 mg per tablet Take 1 (one) tablet by mouth 2 (two) times a day for 10 days . 20 tablet 0 fluticasone propionate (FLONASE) 50 mcg/actuation nasal spray Instill 2 (two) sprays into each nostril daily . 16 g 12 No current facility-administered medications for this visit. There are no Patient Instructions on file for this visit. documented in this [id number] NoteSend Summary: Discharge Summary Providers: Provider RoleProvider Name Aidan Juares Sarah E Note Recipients: None Discharge: Summary: Admission Date: .12-May-2022 19:39:00 Discharge Date: 14-May-2022 Attending Physician at Discharge: Dr. Multani Admission Reason: Preeclampsia with severe features Final Discharge Diagnoses: Preeclampsia with severe features Procedures: None Condition at Discharge: Good Disposition at Discharge: Home Physical Exam: Awake alert and ambulating without difficulty Lungs clear to auscultation Heart regular rate and rhythm Abdomen soft nontender fundus below the umbilicus Extremities +1 edema Hospital Course: Patient was approximately 10 days and presented to the office with mild elevations in her blood pressure but headache refractory to Motrin Tylenol Reglan and Imitrex. Patient had responded to these regimens but once they were out of her system the headache resumed. Patient was admitted for preeclampsia with severe features with the planned to give her magnesium for 24 hours. However approximately 5 hours into her infusion a magnesium level was drawn and found to be elevated beyond the therapeutic range. The magnesium was discontinued for 2 hours and restarted at 1.5 mg/h. Several hours later the patient began feeling anxious again and felt that her magnesium level may be elevated. On rechecking her level again it was beyond the therapeutic range and it was discontinued for 1 hour. The patient refused to receive any further magnesium at this point in she had already received approximately 20 hours of magnesium at a therapeutic level. The following day the patient was doing well and her headache was down to 1 out of 10. She was discharged home with the plans to check her blood pressure at home 3 times a day and follow-up in the office within 72 hours Immunizations: Immunizations: 22-Feb-2022 Tdap: Immunizations, 22-Feb-2022 Tdap: Immunizations, 03-Aug-2020 Tdap: Immunizations, 03-Aug-2020 Tdap: Immunizations, 03-Aug-2020 Discharge Information: and Continuing Care: Lab Results - Pending: None Radiology Results - Pending: None [place] Suicide Risk: negative Discharge Instructions: Activity: Return to normal activity as tolerated Nutrition/Diet: Regular Follow Up Appointments: Follow-Up - OB Provider: Physician/Dept/Service: OB Provider Dr. Multani Call to Schedule in: 1 week, Follow-up in the office on Sunday with your blood pressure log Discharge Medications: Home Medication CeleXA 20 mg oral tablet - 1 tab(s) orally once a day ibuprofen 600 mg oral tablet - 1 tab(s) orally every 6 hours as needed pain PRN Medication acetaminophen 500 mg oral tablet - 2 tab(s) orally every 6 hours, As Needed cyclobenzaprine 5 mg oral tablet - 1 tab(s) orally 3 times a day, As Needed DNR Status: Code StatusCode Status order at time of discharge: Full Code Electronic Signatures: Aidan Multani) (Signed 14-May-2022 09:49) Authored: Send Summary, Summary Content, Immunizations, Ongoing Care, DNR Status, Note Completion Last Updated: 14-May-2022 09:49 by Aidan Multani)[facility] 05-12-2022 NoteHPI/OB History: Care Provider: Dr. 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 Patient reports that since approx 31 weeks in the has been struggling with recurrent headaches and has been to the hospital on Labor and delivery several times. In has responded to tylenol, reglan, and benadry cocktail. However since her delivery has had a persistent headache this week. Patient has tried tylenol and motrin. Patient reports that she has not tried reglan and benadryl because she is afraid that it will dry out her breast milk. Patient was seen in the ER 3 days ago with persistent headache which responded to benadryl, reglan, tylenol, and imitrex. However, the following day awoke with recurrent of the headache. Patient was seen in the office today and had been checking her blood pressures at home because of a hx of pre-eclampsia in prior . Patient denies visual changes, RUQ pain, tolerating diet well. Reports she is exclusively . Patient reports that she has had recurrent blood pressures at home that were in the mild HTN range, but in the office her bp was normal. Allergies: Singulair: Other Latuda: Other Latex: Swelling/Edema, Rash Medications Prior to Admission: Admission Medication Reconciliation has not been completed for this patient. Objective: Objective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 Trimmer Expl anation Advance Directives and Livin g Will 03/26/2021 9:57 PM Documents on File Type Date Recorded Patient Poultry Trimmer Expl anation Advance Directives and Livin g Will 03/26/2021 9:57 PM Latest Code Status on File Code Status Date Activated Date Inactivated Comments Full Code 04/12/2022 10:57 PM 04/13/2022 1:55 AM Documents on File Type Date Recorded Patient Poultry Trimmer Expl anation Advance Directives/Living Will 03/14/2017 1:32 PM Power Of Merchandising Representative Latest Code Status on File Code Status Date Activated Date Inactivated Comments Full Code 08/24/2018 12:06 PM Latest Code Status on File Code Status Date Activated Date Inactivated Comments Full Code 04/12/2022 10:57 PM 04/13/2022 1:55 AM Documents on File Type Date Recorded Patient Poultry Trimmer Expl anation Advance Directives/Living Will 03/14/2017 1:32 PM Power Of Merchandising Representative Date Activated Date Inactivated Comments 08/24/2018 12:06 PM Date Activated Date Inactivated Comments 04/12/2022 10:57 PM 04/13/2022 1:55 AM Date Activated Date Inactivated Comments 08/24/2018 12:06 PM Date Activated Date Inactivated Comments 04/12/2022 10:57 PM 04/13/2022 1:55 AM Documents on File Type Date Recorded Patient Poultry Trimmer Expl anation Power of Merchandising Representative 12/03/2024 ETHEL exp Discharge Instructions * Attachments The following attachments cannot be sent through Care Everywhere. * Ankle Sprain (Kittitian) documented in this encounter* Instructions* Trevor Alonzo MD - 02/17/2019 Keep temperature control taking Acetaminophen 650 mg, taking one or the other up to every 4 hours, as needed for temperature greater than 100 . If unable to follow-up as recommended above, please see an Urgent Care Clinic for re-evaluation. Return to the nearest emergency department at any time if there is: any new, returning or worsening symptoms Difficulty breathing Severe/worsening sore or swollen throat Severe/worsening headache Nausea/vomiting/diarrhea that prevents staying well-hydrated (sunken eyes, dry mouth, decreased urine production) new or changing rash fever >102.0 if it does not come down within 30 minutes of taking Tylenol or Motrin uncontrollable shaking chills difficulty following up as recommended or any other concerns about your condition or treatment. best regards, Trevor Alonzo MD * Attachments The following attachments cannot be sent through Care Everywhere. * URI (Upper Respiratory Infection) (Kittitian) documented in this encounter* Instructions* Varinder El MD - 11/26/2019 Return to the ED for worsening condition, not tolerating fluids, difficulty breathing, bleeding andsoaking through more than 1 pad per hour for 2 hours, or any other worrisome symptoms. Stay well hydrated. * Attachments The following attachments cannot be sent through Care Everywhere. * Abdominal Pain (Kittitian) documented in this encounter* Attachments The following attachments cannot be sent through Care Everywhere. * Gastroenteritis (Kittitian) documented in this encounter* Attachments The following attachments cannot be sent through Care Everywhere. * Tooth: Abscessed (Kittitian) documented in this encounter* Instructions* Trevor Alonzo MD - 03/28/2020 If unable to follow-up with the physician/clinic recommended above, please see an Urgent Care Clinic for re-evaluation within the same number of days. Return to the nearest emergency department at any time if there is: any new, returning or worsening symptoms Abdominal pain Cramping Vaginal bleeding nausea/vomiting/diarrhea that prevents staying well-hydrated (e.g., sunken eyes, dry mouth, decreased urine production) new or changing rash fever > 100.4 (or feeling like there is a high fever if you don't have a thermometer) uncontrollable shaking chills difficulty following up as recommended or any other concerns about your condition or treatment. best regards, Trevor Alonzo MD * Attachments The following attachments cannot be sent through Care Everywhere. * Nausea and Vomiting (Kittitian) * Dehydration (Kittitian) * : UTI (Urinary Tract Infection) (Kittitian) documented in this encounter* Instructions* Varinder El MD - 04/12/2020 Return to the ED for worsening condition, not tolerating fluids, difficulty breathing, soaking through more than 1 pad an hour for more than 2 hours, or any other worrisome symptoms. Continue to avoid sexual activity until you have seen your OBGYN. * Attachments The following attachments cannot be sent through Care Everywhere. * : Vaginal Bleeding (Kittitian) * Miscarriage: Threatened (Kittitian) documented in this encounter* Attachments The following attachments cannot be sent through Care Everywhere. * URI (Upper Respiratory Infection): Viral (Kittitian) documented in this encounter* Attachments The following attachments cannot be sent through Care Everywhere. * : General Info (Kittitian) * : Kick Counts (Kittitian) * : UTI (Urinary Tract Infection) (Kittitian) * : Weeks 26 to 30 (Kittitian) * : When to Call (After 20 Weeks): General Info (Kittitian) * Labor (Kittitian) documented in this encounter Assessments Diagnosis Sprain of right ankle, unspecified ligament, initial encounter- Primary Diagnosis Acute URI- Primary Acute upper respiratory infections of unspecified site Diagnosis Abdominal pain during , first trimester Bacterial vaginosis Unspecified vaginitis and vulvovaginitis demise before 20 weeks with retention of fetus Diagnosis Gastroenteritis Other and unspecified noninfectious gastroenteritis and colitis Diagnosis Dental infection Diagnosis Non-intractable vomiting with nausea, unspecified vomiting type- Primary Dehydration Acute UTI Urinary tract infection, site not specified Diagnosis Vaginal bleeding in - Primary Threatened miscarriage Threatened , unspecified as to episode of care Diagnosis Medication reaction, initial encounter- Primary H/O borderline personality disorder Diagnosis Nasopharyngitis- Primary Acute nasopharyngitis (common cold) Diagnosis Chronic tension-type headache, not intractable- Primary Chronic tension type headache Chief Complaint patient presents today stating she is having severe abdominal cramping and also mentioned that she had missed her period last month but has taken six test with all of them being negative. Patient delivered 10/09/2020 and is currently breast feeding. Patient has history of PCOS. LMP 1patient presents today stating she is having severe abdominal cramping and also mentioned that she had missed her period last month but has taken six test with all of them being negative. Patient delivered 10/09/2020 and is currently breast feeding. Patient has history of PCOS. LMP 1PT IS HERE TODAY FOR U/S RESULTS. STATES STILL HAS NOT HAD A PERIOD.New patient (referred by ) here today due to kidney pain. Had U/S this past sunday and there were no findings. Reason for Referral Specialty Diagnoses / Procedures Referred By Raffy t Referred To Contact Psychiatry Diagnoses Borderline personality disorder (HCC) Adjustment disorder with anxiety Panic disorder without agoraphobia Major depressive disorder, single episode, moderate (HCC) Winter Mason MD [address] [place] [address] Michelle Ely MD [address] [address] Referral ID Status Reason Start Date Expiration Date V isits Requested Visits Authorized [id number] Authorized 07/12/2021 07/12/2022 1 1 Specialty Diagnoses / Procedures Referred By Contac t Referred To Contact Psychiatry Diagnoses MATILDA (generalized anxiety disorder) Mood disorder (HCC) Borderline personality disorder (HCC) Fidel Valdovinos MD [address] [place] [address] [facility] [address] [place] [address] Referral ID Status Reason Start Date Expiration Date Visits Requested Visits Authorized [id number] Pending Review Specialty Services Required/Pat ient's Best Interest 3 07/02/2024 1 1 Specialty Diagnoses / Procedures Referred By Contac t Referred To Contact Diagnoses ADHD (attention deficit hyperactivity disorder), combined type Candis Saunders, [employer] [address] [place] [address] Referral ID Status Reason Start Date Expiration Date Visits Re quested Visits Authorized [id number] Closed 1 1 Specialty Diagnoses / Procedures Referred By Contac t Referred To Contact Diagnoses Adult ADHD Candis Saunders, [employer] [address] [place] [address] Referral ID Status Reason Start Date Expiration Date Visits Re quested Visits Authorized [id number] Closed 1 1 Specialty Diagnoses / Procedures Referred By Contac t Referred To Contact Cardiovascular Medicine Diagnoses Establishing care with new doctor, encounter for Near syncope Dizziness and giddiness Procedures ECHOCARDIOGRAM MA ECHO HEART XTHORACIC,COMPLETE W DOPPLER Loreto Art MD [address] [place] [id number] [facility] [address] [place] [id number] Referral ID Status Reason Start Date Expiration Date Visits Re quested Visits Authorized [id number] Closed 12/03/2023 12/27/2024 1 1 Specialty Diagnoses / Procedures Referred By Contac t Referred To Contact Diagnoses Family history of MS (multiple sclerosis) Lightheadedness Impairment of balance Postural dizziness with presyncope Numbness and tingling Burning sensation Blurred vision, bilateral Diplopia Memory loss Impaired cognition Procedures MRI ANGIO NECK WITHOUT CONTRAST CHG MRA NECK W/O CONTRST MATERIAL [address] [address] Referral ID Status Reason Start Date Expiration Date V isits Requested Visits Authorized [id number] Pending Review 01/16/2024 02/09/2025 1 1 Specialty Diagnoses / Procedures Referred By Contac t Referred To Contact Diagnoses Family history of MS (multiple sclerosis) Lightheadedness Impairment of balance Postural dizziness with presyncope Numbness and tingling Burning sensation Blurred vision, bilateral Diplopia Memory loss Impaired cognition Procedures MRI ARTERIOGRAM BRAIN WITHOUT CONTRAST CHG MRA HEAD W/O CONTRST MATERIAL [address] [address] Referral ID Status Reason Start Date Expiration Date V isits Requested Visits Authorized [id number] Pending Review 01/16/2024 02/09/2025 1 1 Specialty Diagnoses / Procedures Referred By Contac t Referred To Contact Diagnoses Family history of MS (multiple sclerosis) Lightheadedness Impairment of balance Postural dizziness with presyncope Numbness and tingling Burning sensation Blurred vision, bilateral Diplopia Memory loss Impaired cognition Procedures MRI BRAIN WITH AND WITHOUT CONTRAST CHG MRI BRAIN BRAIN STEM W/O W/CONTRAST MATERIAL [address] [address] Referral ID Status Reason Start Date Expiration Date V isits Requested Visits Authorized [id number] Pending Review 01/16/2024 02/09/2025 1 1 Referral ID Status Reason Start Date Expiration Date Visits Re quested Visits Authorized [id number] Closed 02/01/2024 02/25/2025 1 1 Referral ID Status Reason Start Date Expiration Date Visits Re quested Visits Authorized [id number] Closed 01/16/2024 02/09/2025 1 1 Referral ID Status Reason Start Date Expiration Date Visits Re quested Visits Authorized [id number] Closed 01/16/2024 02/09/2025 1 1 Referral ID Status Reason Start Date Expiration Date Visits Re quested Visits Authorized [id number] Closed 1 1 Specialty Diagnoses / Procedures Referred By Raffy t Referred To Contact Diagnoses Bipolar 1 disorder (HCC) Candis Saunders, [employer] [address] [place] [address] Referral ID Status Reason Start Date Expiration Date V isits Requested Visits Authorized [id number] Authorized 03/06/2024 03/05/2025 1 1 Chief Complaint and Reason for Visit Chief Complaint Admit Date Pre New Ob, comfim preg, vitals December 9:51am Chief Complaint Admit Date Pre New Ob, comfim preg, vitals December 9:51am *NEW* NOB LMP 11/30, SANIA 09/06January 30, 2025 10:26am Reason for Visit Admit Date Akathisia January 13, 2025 9:51 am Anxiety January 13, 2025 9:51 am Bipolar 1 disorder January 13, 2025 9:51 am Borderline personality disorder December 9:51am stopped January 13, 2025 9: 51am Former smoker January 13, 2025 9:51 am High insulin level January 13, 2025 9:51 am History of hyperemesis gravidarum December 222024 9:51am History of miscarriage, currently pregna nt January 13, 2025 9:51am History of pre-eclampsia in prior , currently January 13, 2025 9:51am History of delivery, currently p regnant January 13, 2025 9:51am IBS (irritable bowel syndrome) December 9:51am Major depressive disorder January 13 9:51am Obesity affecting January 13 9:51am PCOS (polycystic ovarian syndrome) January 13, 2025 9:51am January 13, 2025 9:51 am PTSD (post-traumatic stress disorder) Ju 2024 9:51am Supervision of high-risk January 13, 2025 9:51am Akathisia January 30, 2025 10:2 6am Anxiety January 30, 2025 10:2 6am Bipolar 1 disorder January 30, 2025 10:2 6am Borderline personality disorder January 10:26am stopped January 30, 2025 10 :26am Former smoker January 30, 2025 10:2 6am High insulin level January 30, 2025 10:2 6am History of hyperemesis gravidarum January 202024 10:26am History of miscarriage, currently pregna nt January 30, 2025 10:26am History of pre-eclampsia in prior , currently January 30, 2025 10:26am History of delivery, currently p regnant January 30, 2025 10:26am IBS (irritable bowel syndrome) January 10:26am Major depressive disorder January 30 10:26am Obesity affecting January 30 10:26am PCOS (polycystic ovarian syndrome) January 30, 2025 10:26am January 30, 2025 10:2 6am PTSD (post-traumatic stress disorder) Ju 2024 10:26am Supervision of high-risk January 30, 2025 10:26am Additional Source Comments INFORMATION SOURCE (unrecogn ized section and content) DATE CREATED AUTHOR 01/07/2018 [facility] DATE CREATED AUTHOR AUTHOR'S ORGANIZ ATION 04/30/2019 [facility] DATE CREATED AUTHOR AUTHOR'S ORGANIZ ATION 11/02/2019 [facility] DATE CREATED AUTHOR AUTHOR'S ORGANIZ ATION 03/01/2020 [facility] DATE CREATED AUTHOR AUTHOR'S ORGANIZ ATION 05/02/2020 [facility] DATE CREATED AUTHOR AUTHOR'S ORGANIZ ATION 05/13/2022 [facility] DATE CREATED AUTHOR AUTHOR'S ORGANIZ ATION 05/16/2022 [facility] DATE CREATED AUTHOR AUTHOR'S ORGANIZ ATION 09/23/2022 [facility] DATE CREATED AUTHOR AUTHOR'S ORGANIZ ATION 09/24/2023 [facility] DATE CREATED AUTHOR AUTHOR'S ORGANIZ ATION 12/16/2023 [facility] DATE CREATED AUTHOR AUTHOR'S ORGANIZ ATION 09/07/2024 [facility] DATE CREATED AUTHOR AUTHOR'S ORGANIZ ATION 09/20/2024 [facility] DATE CREATED AUTHOR AUTHOR'S ORGANIZ ATION 09/20/2024 [facility] DATE CREATED AUTHOR AUTHOR'S ORGANIZ ATION 11/07/2024 [facility] DATE CREATED AUTHOR AUTHOR'S ORGANIZ ATION 12/21/2024 [facility] DATE CREATED AUTHOR AUTHOR'S ORGANIZ ATION 01/07/2025 [facility] DATE CREATED AUTHOR AUTHOR'S ORGANIZ ATION 01/22/2025 [facility] Reason for Visit (unrecogniz ed section and content) Reason Comments Psychiatric Evaluation Specialty Diagnoses / Procedures Referred By Contac t Referred To Contact Psychiatry Diagnoses Borderline personality disorder (HCC) Adjustment disorder with anxiety Panic disorder without agoraphobia Major depressive disorder, single episode, moderate (HCC) Winter Mason MD [address] [place] [address] Referral ID Status Reason Start Date Expiration Date Visits Re quested Visits Authorized [id number] Closed 07/12/2021 07/12/2022 1 1 Reason Comments Ankle Injury Reason Comments Sore Throat Reason Comments Abdominal Pain Reason Comments Nausea Emesis Diarrhea Reason Comments Dental Pain Reason Comments Emesis During Patient reports she is 11 wks and today, has been unable to keep anything down. Has not taken any medication for nausea Reason Comments Problem Reason Comments Abdominal Pain tightening Urinary Tract Infection urgency, frequen cy, burning Rupture of Membranes questioning if she is leaking fluid Vaginal Discharge increase Reason Comments Abdominal Pain decreased move ment, cramping Reason Comments Chest Pain Reason Comments Sinus Problem C/o sinus congestion , sore throat, ear pain and burning nasal cavity since last evening. Reason Comments Abdominal Pain To ed with c/o RLQ p ain. Pt states it feels like contractions Reason Comments Cellulitis Possible mastitis in right breast x's 2 days painful, Reason Comments URI Sore throat,cough, e ar pain , both ears, no voice x 3 days Reason Comments Medication Management Psychiatric Evaluation Specialty Diagnoses / Procedures Referred By Contac t Referred To Contact Psychiatry Diagnoses MATILDA (generalized anxiety disorder) Mood disorder (HCC) Borderline personality disorder (HCC) Fidel Valdovinos MD [address] [place] [address] [facility] [address] [place] [address] Referral ID Status Reason Start Date Expiration Date Visits Requested Visits Authorized [id number] Pending Review Specialty Services Required/Pat ient's Best Interest 3 07/02/2024 1 1 Reason Comments Breast Problem Patient c/o right br east pain. Patient states she feels like she has mastitis. Patient states she is . Patient states symptoms started 2 days ago. Specialty Diagnoses / Procedures Referred By Contact Referred To Contact Cardiovascular Medicine Diagnoses Establishing care with new doctor, encounter for Near syncope Dizziness and giddiness Procedures TILT TABLE TEST Loreto Art MD [address] [place] [id number] [facility] [address] [place] [address] Referral ID Status Reason Start Date Expiration Date Visits Re quested Visits Authorized [id number] Closed 12/03/2023 12/27/2024 1 1 Specialty Diagnoses / Procedures Referred By Contac t Referred To Contact Cardiovascular Medicine Diagnoses Establishing care with new doctor, encounter for Near syncope Dizziness and giddiness Procedures ECHOCARDIOGRAM MA ECHO HEART XTHORACIC,COMPLETE W DOPPLER Loreto Art MD [address] [place] [id number] [facility] [address] [place] [id number] Referral ID Status Reason Start Date Expiration Date Visits Re quested Visits Authorized [id number] Closed 12/03/2023 12/27/2024 1 1 Reason Comments New Patient dizziness Specialty Diagnoses / Procedures Referred By Conthui t Referred To Contact Neurology Diagnoses Dizziness and giddiness Loreto Art MD [address] [place] [id number] [address] Referral ID Status Reason Start Date Expiration Date Visits Re quested Visits Authorized [id number] Closed 01/08/2024 02/01/2025 1 1 Reason Onset Date Comments Medication Refill 01/23/2024 Specialty Diagnoses / Procedures Referred By Contac t Referred To Contact Diagnoses Family history of MS (multiple sclerosis) Lightheadedness Impairment of balance Postural dizziness with presyncope Numbness and tingling Burning sensation Blurred vision, bilateral Diplopia Memory loss Impaired cognition Procedures MRI BRAIN WITH AND WITHOUT CONTRAST CHG MRI BRAIN BRAIN STEM W/O W/CONTRAST MATERIAL [address] [address] Referral ID Status Reason Start Date Expiration Date Visits Re quested Visits Authorized [id number] Closed 02/01/2024 02/25/2025 1 1 Specialty Diagnoses / Procedures Referred By Contac t Referred To Contact Diagnoses Family history of MS (multiple sclerosis) Lightheadedness Impairment of balance Postural dizziness with presyncope Numbness and tingling Burning sensation Blurred vision, bilateral Diplopia Memory loss Impaired cognition Procedures MRI ANGIO NECK WITHOUT CONTRAST CHG MRA NECK W/O CONTRST MATERIAL [facility], [address] [address] Referral ID Status Reason Start Date Expiration Date Visits Re quested Visits Authorized [id number] Closed 01/16/2024 02/09/2025 1 1 Specialty Diagnoses / Procedures Referred By Contac t Referred To Contact Diagnoses Family history of MS (multiple sclerosis) Lightheadedness Impairment of balance Postural dizziness with presyncope Numbness and tingling Burning sensation Blurred vision, bilateral Diplopia Memory loss Impaired cognition Procedures MRI ARTERIOGRAM BRAIN WITHOUT CONTRAST CHG MRA HEAD W/O CONTRST MATERIAL [facility], [address] [address] Referral ID Status Reason Start Date Expiration Date Visits Re quested Visits Authorized [id number] Closed 01/16/2024 02/09/2025 1 1 Reason Comments Ear Pain Fullness, pressure b ilateral ears x3 days Reason Onset Date Comments Medication Refill 03/05/2024 Reason Comments Gynecologic Exam New patient annual, last pap 12/14/22 Reason Comments Establish Care Per Joshua ward or palpitations/possible POTS Specialty Diagnoses / Procedures Referred By Raffy t Referred To Contact Cardiology Diagnoses Palpitations Britt, Joshua Chen, CNM [address] [facility] [place] [address] [place] [address] Phone: tel: fax: [facility] [address] [facility], 3rd [place] [address] Phone: tel: fax: Referral ID Status Reason Start Date Expiration Date Visits Re quested Visits Authorized [id number] Closed 08/04/2024 08/04/2025 1 1 Reason Comments Otalgia Left ear pain and so re throat, nasal congestion. Symptoms x 3 days. Reason Onset Date Comments Medication Refill 12/03/2024 Scotty Leija RN - 01/12/2019 11:13 PM EDTPortRuddy grigsby MD - 01/12/2019 10:28 PM Massiel Chiu RN - 01/12/2019 10:22 PM Massiel Chiu RN - 01/12/2019 10:15 PM EDT ED Notes (unrecognized secti on and content) Pre-formed stirrup splint applied. Pt tolerated well. ED PROVIDER NOTE [facility] EM[facility] NAME: Rohan Mccartney AGE: 18 y.o. : 2000 VISIT DATE: 01/12/2019 CSN: [id number] PCP: Juan Nguyen MD Chief Complaint Patient presents with Ankle Injury The patient is here for right ankle injury. The duration is 3 hours. She turned and inverted her right ankle when stepping up from the floor at home and stepped on a toy. After that she took maybe 40 steps but is now preferring to rest. The location is lateral malleolus. There is no associated numbness or weakness. Additionally she is dizzy the last 3 weeks or so, initially attributed to stopping Zoloft at that time, however the dizziness persists. She thinks maybe it is similar to a dizziness that occurred for months ago when she delivered a baby and is found to have low iron level but the iron was replaced and rechecked and normal. Past Medical History: Diagnosis Date Anxiety Borderline personality disorder (HCC) Depression Irritable bowel syndrome Major depressive disorder Polycystic ovarian disease depression Past Surgical History: Procedure Laterality Date adnoids TONSILLECTOMY tubes in ears History reviewed. No pertinent family history. Social History Socioeconomic History Marital status: Single Spouse name: Not on file Number of children: Not on file Years of education: Not on file Highest education level: Not on file Occupational History Not on file Social Needs Financial resource strain: Not on file Food insecurity: Worry: Not on file Inability: Not on file Transportation needs: Medical: Not on file Non-medical: Not on file Tobacco Use Smoking status: Never Smoker Smokeless tobacco: Never Used Substance and Sexual Activity Alcohol use: Not Currently Drug use: Never Sexual activity: Not on file Lifestyle Physical activity: Days per week: Not on file Minutes per session: Not on file Stress: Not on file Relationships Social connections: Talks on phone: Not on file Gets together: Not on file Attends samaritan service: Not on file Active member of club or organization: Not on file Attends meetings of clubs or organizations: Not on file Relationship status: Not on file Other Topics Concern Not on file Social History Narrative Not on file Previous Medications Medication Sig vitamin with Ca-Iron-FA 27-1 mg Tab Take 1 tablet by mouth daily . [DISCONTINUED] sertraline (ZOLOFT) 50 MG tablet Take 1/2 tablet by mouth every morning for 6 days, then increase to 1 tablet every morning Allergies Allergen Reactions Latex, Natural Rubber Rash Montelukast Other (See Comments) Halucinations Zofran [Ondansetron Hcl] GI Intolerance Review of Systems Constitutional: Negative for fever. Respiratory: Negative for shortness of breath. Cardiovascular: Negative for chest pain. Neurological: Negative for syncope and weakness. Patient Vitals for the past 24 hrs: BP Temp Temp src Pulse Resp SpO2 Height Weight 01/12/19 2219 115/71 98.2 F (36.8 C) Oral 83 18 97 % 4' 11 77.1 kg (170 lb) Physical Exam Constitutional: She is oriented to person, place, and time. She appears well-developed and well-nourished. No distress. HENT: Head: Normocephalic and atraumatic. Eyes: Conjunctivae and EOM are normal. Pulmonary/Chest: Effort normal. Musculoskeletal: Right ankle tender lateral malleolus, no swelling deformity. Some crepitus present. Normal proximal joint. Normal foot. Normal distal neurovascular. Neurological: She is alert and oriented to person, place, and time. Skin: Skin is warm and dry. No conjunctival or palmar pallor. Psychiatric: She has a normal mood and affect. Her behavior is normal. Nursing note and vitals reviewed. Laboratory & Radiographic Imaging (if done): No results found for this visit on 01/12/19. XR Ankle Right 3+ Views (Standard) (Results Pending) Procedures MDM Number of Diagnoses or Management Options Diagnosis management comments: X-ray 3 views of the right ankle, my interpretation, no fracture, dislocation or radiopaque foreign body. Gait is assessed, patient has full weightbearing but walks with the leg in external rotation. She does not require crutches. Aircast splint, preformed, placed by nurse. Findings, diagnostic possibilities, treatment plan, follow-up plans including the need for follow-up, and indications for return are reviewed with the patient who states understands and agrees. . . Clinical Impression: No diagnosis found. ED Disposition None Follow-up Information Follow-up information has not been specified. Contact information for after-discharge care Follow-up information has not been specified. Discontinued Medications Disp Refills Start End sertraline (ZOLOFT) 50 MG tablet 0 10/24/2018 01/12/2019 Class: Historical Med Ruddy Gary MD 01/12/19 1199 ICE APPLIED BY MEAGHAN WILSON RN. PT ROLLED HER RIGHT ANKLE PRIOR TO ARRIVAL. DID NOT FALL. documented in this encounter ED PROVIDER NOTE [facility] EM[facility] NAME: Rohan Mccartney AGE: 18 y.o. : 2000 VISIT DATE: 02/17/2019 CSN: [id number] PCP: Juan Nguyen MD Chief Complaint Patient presents with Sore Throat HPI HPI: 18-year-old female, with history of tonsillectomy in 2015, IBS, BPD, now presenting for 2 days sore throat. Patient reports subjective fever last night. Generalized aches and pains, headache. She reports only minimal cough, no rhinorrhea or nasal congestion, and no GI symptoms. She has been taking Tylenol for pain, does not take ibuprofen because she is breast-feeding. Severity: Moderate 5 out of 10 Location: as above* Radiating to: only as above; otherwise none* Exacerbated by: Speaking, swallowing Relieved by: Tylenol Associated with: only as above; otherwise none* Historian(s) deny any other concerns. ROS negative except as above. I have reviewed and agree with the available nursing notes except as otherwise reported. I have reviewed available medical records. REVIEW OF SYSTEMS: Const: No fever No true lethargy Eyes: No redness No discharge ENT: No otalgia No congestion sore throat No dental pain CV: No chest discomfort No syncope Resp: Minimal cough No SOB GI: No Abdo pain No nausea No vomiting No diarrhea No constipation : No dysuria No hematuria Nl UOP MSK: Negative except as noted in HPI Skin: No rash Neuro: Nl mental status COELLO Hem: No bleeding/clotting problems Psych: Nl behavior except as otherwise noted PHYSICAL EXAM: Patient Vitals for the past 24 hrs: BP Temp Temp src Pulse Resp SpO2 Height Weight 02/17/19 1256 122/74 97.6 F (36.4 C) Oral 94 18 98 % 5' 77.1 kg (170 lb) VS Reviewed. The Pulse ox is Normal* Constitutional: Non-toxic Head: Normocephalic Atraumatic Eyes: PERRL EOMi No injection or hemorrhage No discharge ENT: Mucus membranes moist pharyngeal injection No oral / oropharyngeal edema No tonsillar enlargement No exudate No signs of RUG SCRATCHER / deep-space infection No significant gingivitis No induration/Faisal's No sinus ttp Bilat nasal congestion R mastoid nl L mastoid nl Neck: Nl ROM No meningeal signs trachea midline No objective swelling No stridor No JVD No carotid bruits Minimal bilateral anterior cervical lymphadenopathy No palpable masses Tenderness Midline: NTTP Parasp: NTTP Lateral: NTTP Cardiovascular: RRR Nl heart sounds Respiratory: No resp distress Nl symmetric chest movement No retractions No accessory muscles CTAB Not diminished or absent Gastrointestinal: Non-distended Nl bowel sounds Soft NTTP No guarding No rebound No pulsatile mass Genitourinary: Deferred Back Upper Extremities: Nl inspection Nl peripheral pulses Lower Extremities: Neurologic: Alert answers questions appropriately no focal deficits Psych: Appropriate Skin: Warm Dry Nl color No acute/emergency findings unless otherwise specified Past Medical History: Diagnosis Date Anxiety Borderline personality disorder (HCC) Depression Irritable bowel syndrome Major depressive disorder Polycystic ovarian disease depression Past Surgical History: Procedure Laterality Date adnoids TONSILLECTOMY tubes in ears History reviewed. No pertinent family history. Social History Socioeconomic History Marital status: Single Spouse name: Not on file Number of children: Not on file Years of education: Not on file Highest education level: Not on file Occupational History Not on file Social Needs Financial resource strain: Not on file Food insecurity: Worry: Not on file Inability: Not on file Transportation needs: Medical: Not on file Non-medical: Not on file Tobacco Use Smoking status: Never Smoker Smokeless tobacco: Never Used Substance and Sexual Activity Alcohol use: Not Currently Drug use: Never Sexual activity: Not on file Lifestyle Physical activity: Days per week: Not on file Minutes per session: Not on file Stress: Not on file Relationships Social connections: Talks on phone: Not on file Gets together: Not on file Attends samaritan service: Not on file Active member of club or organization: Not on file Attends meetings of clubs or organizations: Not on file Relationship status: Not on file Other Topics Concern Not on file Social History Narrative Not on file Previous Medications Medication Sig vitamin with Ca-Iron-FA 27-1 mg Tab Take 1 tablet by mouth daily . [DISCONTINUED] vitamin with Ca-Iron-FA 27-1 mg Tab Take 1 tablet by mouth daily . Allergies Allergen Reactions Latex, Natural Rubber Rash Montelukast Other (See Comments) Halucinations Zofran [Ondansetron Hcl] GI Intolerance Review of Systems Patient Vitals for the past 24 hrs: BP Temp Temp src Pulse Resp SpO2 Height Weight 02/17/19 1256 122/74 97.6 F (36.4 C) Oral 94 18 98 % 5' 77.1 kg (170 lb) Physical Exam Laboratory & Radiographic Imaging (if done): Results for orders placed or performed during the hospital encounter of 02/17/19 POC Urinalysis Dipstick, Auto Result Value Ref Range Spec Grav, UA >=1.030 (H) 1.005 - 1.025 pH, UA 6.5 5.0 - 7.0 Protein, UA 100 (A) Negative mg/dL Glucose, UA Negative Negative mg/dL Ketones, UA 80 (A) Negative mg/dL Bilirubin, UA Moderate (A) Negative Urobilinogen, UA 1.0 <2.0 mg/dL Blood, UA Trace-lysed (A) Negative Nitrite, UA Negative Negative Leukocyte Esterase, UA Large (A) Negative POC , Urine Result Value Ref Range POC Preg Test, Ur Negative Negative No orders to display Procedures MDM DDX Including but not limited to: Viral URI Bacterial Pharyngitis Influenza Sinusitis No indication of Bronchitis PNA Deep-space infection Epiglottitis Tracheitis Rapid strep negative. Patient clinically stable, feeling better after lidocaine. Considered appropriately wide DDx. At this time, acutely dangerous emergency conditions found to be unlikely based on history, exam, vitals and any testing, except as otherwise specified. I recommend follow-up with pcp within 2-3 days*. They understand, are appreciative and comfortable with outpatient plan including follow-up and return ED recommendations as discussed. Pt appears nontoxic, well-hydrated and comfortable. The patient has been informed that they may have pre-hypertension or hypertension based on a blood pressure reading in the Emergency Department. I recommend that the patient call the primary care provider listed on their discharge instructions or a physician of their choice as soon as possible to arrange follow-up in the next 4 weeks for further evaluation of possible pre-hypertension or hypertension. . Clinical Impression: SNOMED CT(R) 1. Acute URI ACUTE UPPER RESPIRATORY INFECTION ED Disposition ED Disposition Condition Comment Discharge Stable Rohan Mccartney discharged to home/self care in stable condition. Follow-up Information 1. Juan Nguyen MD. Specialty: Family Medicine Why: For recheck, to make sure that you are improving [facility] [address] Contact information for after-discharge care Follow-up information has not been specified. Trevor Alonzo MD 02/17/19 1407 Physician at bedside. Arrives to ed with c/o sore throat x 2 days. Fever of 101 last night. States sister was dx with viral infection and she drank after her. 11/29 pain. documented in this encounter ED PROVIDER NOTE [facility] NAME: Rohan Mccartney AGE: 19 y.o. : 2000 VISIT DATE: 11/25/2019 CSN: [id number] PCP: Juan Nguyen MD Chief Complaint Patient presents with Abdominal Pain This is a 19-year-old female who is G2, P1 presenting to the emergency room with a complaint of abdominal pain. She is in for semester of her best guess is that she is 10 weeks but she is never had an ultrasound or seen a leadership intern. She has an appoint with an leadership intern in 2 days. She notes that starting at 6 PM tonight she has been having significant cramping in her bilateral lower quadrant that is been nearly constant without any exacerbating relieving factors. She did have cramping with her first , but this feels more intense so she came the hospital. Her further interviewing the patient states that she has actually had cramping for the last month intermittently but today is different. No recent fever, shaking chills, vomiting, diarrhea, difficulty breathing, urinary symptoms. Past Medical History: Diagnosis Date Anxiety Borderline personality disorder (HCC) Depression Irritable bowel syndrome Major depressive disorder Polycystic ovarian disease depression Past Surgical History: Procedure Laterality Date adnoids TONSILLECTOMY tubes in ears History reviewed. No pertinent family history. Social History Socioeconomic History Marital status: Single Spouse name: Not on file Number of children: Not on file Years of education: Not on file Highest education level: Not on file Occupational History Not on file Social Needs Financial resource strain: Not on file Food insecurity Worry: Not on file Inability: Not on file Transportation needs Medical: Not on file Non-medical: Not on file Tobacco Use Smoking status: Former Smoker Years: 5.00 Types: Cigarettes Smokeless tobacco: Never Used Tobacco comment: 2-3 a day Substance and Sexual Activity Alcohol use: Not Currently Drug use: Never Sexual activity: Yes Partners: Male control/protection: None Lifestyle Physical activity Days per week: Not on file Minutes per session: Not on file Stress: Not on file Relationships Social connections Talks on phone: Not on file Gets together: Not on file Attends samaritan service: Not on file Active member of club or organization: Not on file Attends meetings of clubs or organizations: Not on file Relationship status: Not on file Other Topics Concern Not on file Social History Narrative Not on file Previous Medications Medication Sig vitamin with Ca-Iron-FA 27-1 mg Tab Take 1 tablet by mouth daily . [DISCONTINUED] DULoxetine (CYMBALTA) 20 MG capsule Take 40 mg by mouth daily . [DISCONTINUED] OXcarbazepine (TRILEPTAL) 150 MG tablet Take 450 mg by mouth once daily . Allergies Allergen Reactions Latex, Natural Rubber Rash Montelukast Other (See Comments) Halucinations Sertraline Anxiety Zofran [Ondansetron Hcl] GI Intolerance Latuda [Lurasidone] Other (See Comments) Suicidal Review of Systems Respiratory: Negative for choking, shortness of breath, wheezing and stridor. Gastrointestinal: Negative for abdominal distention, abdominal pain, blood in stool, diarrhea, nausea and vomiting. Endocrine: Negative for polydipsia and polyuria. Genitourinary: Negative for difficulty urinating, dysuria, flank pain, hematuria and urgency. Skin: Negative for color change and wound. Patient Vitals for the past 24 hrs: BP Temp Temp src Pulse Resp SpO2 Height Weight 11/25/19 2325 127/80 98 F (36.7 C) Oral 96 16 98 % 4' 11 78.9 kg (174 lb) Physical Exam Vitals signs and nursing note reviewed. Constitutional: General: She is not in acute distress. Appearance: Normal appearance. She is not ill-appearing. Comments: Well appearing and comfortable. Able to speak easily and comfortably HENT: Head: Normocephalic and atraumatic. Mouth/Throat: Mouth: Mucous membranes are moist. Pharynx: Oropharynx is clear. Eyes: Extraocular Movements: Extraocular movements intact. Neck: Musculoskeletal: Normal range of motion and neck supple. No neck rigidity. Cardiovascular: Rate and Rhythm: Normal rate and regular rhythm. Pulses: Normal pulses. Heart sounds: Normal heart sounds. Pulmonary: Effort: Pulmonary effort is normal. Breath sounds: Normal breath sounds. Abdominal: General: There is no distension. Palpations: Abdomen is soft. Tenderness: There is no abdominal tenderness. There is no guarding or rebound. Genitourinary: Cervix: Discharge (thick, yellow/white, medium) present. No cervical motion tenderness or friability. Musculoskeletal: General: No deformity (obvious). Skin: General: Skin is warm and dry. Neurological: Mental Status: She is alert and oriented to person, place, and time. Mental status is at baseline. Psychiatric: Mood and Affect: Mood normal. Behavior: Behavior normal. Laboratory & Radiographic Imaging (if done): No results found for this visit on 11/25/19. US Pelvic Transabdominal and Transvaginal (Results Pending) Procedures MDM Number of Diagnoses or Management Options Abdominal pain during , first trimester: Bacterial vaginosis: demise before 20 weeks with retention of fetus: Diagnosis management comments: Well appearing patient with worse abdominal cramping tonight, and unknown location of preg--> U/S. Wet prep reveals clue cells, and give her sx and hx of prior pre term labor, tx with flagyl. U/S report is c/w demise. Case d/w Dr. Giordano of OB (Dr Odell's partner- who the pt has appt with in 2 days). He recc outpt f/u as planned. Pt quite agreeable with this. She has become tearful and asks for something to deal with her anxiety and help her sleep tonight so she is given a single dose of Hydroxyzine. Patient is comfortable with, and understands, the plan for discharge, return signs, outpatient follow up closely, symptomatic care, the differential considerations along with likelihoods of those considerations, and the findings of the visit today. The patient has been informed that they may have pre-hypertension or hypertension based on a blood pressure reading in the Emergency Department. I recommend that the patient call the primary care provider listed on their discharge instructions or a physician of their choice as soon as possible to arrange follow-up in the next 4 weeks for further evaluation of possible pre-hypertension or hypertension. . Clinical Impression: No diagnosis found. ED Disposition None Follow-up Information Follow-up information has not been specified. Contact information for after-discharge care Follow-up information has not been specified. Discontinued Medications Disp Refills Start End DULoxetine (CYMBALTA) 20 MG capsule 11/25/2019 Class: Historical Med Reason for Discontinue: Error OXcarbazepine (TRILEPTAL) 150 MG tablet 11/25/2019 Class: Historical Med Reason for Discontinue: Error Varinder El MD 11/26/19 0246 STATES I'M 10 TO 11 WEEKS , HAVEN'T BEEN TO OBGYN YET, ABDOMINAL CRAMPING STARTED AROUND 6 PM TONIGHT, NO BLEEDING. documented in this encounter ED PROVIDER NOTE [facility] EM[facility]ENCY [facility]PART[facility] NAME: Rohan Mccartney AGE: 19 y.o. : 2000 VISIT DATE: 09/29/2019 [facility]: [id number] PCP: Juan Nguyen MD Chief Complaint Patient presents with Nausea Emesis Diarrhea 19-year-old female presents to the emergency department for evaluation of nausea and vomiting with diarrhea, onset at approximately 3 PM yesterday. 4-5 episodes of each. No hematemesis. No melena or hematochezia. No fever or chills. No dysuria urinary frequency or urgency. No vaginal bleeding or discharge. No abdominal pain. No recent travel. No recent antibiotic use. daughter with similar symptoms recently which self resolved within 24 hours. No other associated symptoms or complaints Past Medical History: Diagnosis Date Anxiety Borderline personality disorder (HCC) Depression Irritable bowel syndrome Major depressive disorder Polycystic ovarian disease depression Past Surgical History: Procedure Laterality Date adnoids TONSILLECTOMY tubes in ears History reviewed. No pertinent family history. Social History Socioeconomic History Marital status: Single Spouse name: Not on file Number of children: Not on file Years of education: Not on file Highest education level: Not on file Occupational History Not on file Social Needs Financial resource strain: Not on file Food insecurity Worry: Not on file Inability: Not on file Transportation needs Medical: Not on file Non-medical: Not on file Tobacco Use Smoking status: Current Every Day Smoker Packs/day: 0.50 Years: 5.00 Pack years: 2.50 Smokeless tobacco: Never Used Substance and Sexual Activity Alcohol use: Not Currently Drug use: Never Sexual activity: Not on file Lifestyle Physical activity Days per week: Not on file Minutes per session: Not on file Stress: Not on file Relationships Social connections Talks on phone: Not on file Gets together: Not on file Attends samaritan service: Not on file Active member of club or organization: Not on file Attends meetings of clubs or organizations: Not on file Relationship status: Not on file Other Topics Concern Not on file Social History Narrative Not on file Previous Medications Medication Sig DULoxetine (CYMBALTA) 20 MG capsule Take 40 mg by mouth daily . OXcarbazepine (TRILEPTAL) 150 MG tablet Take 450 mg by mouth once daily . vitamin with Ca-Iron-FA 27-1 mg Tab Take 1 tablet by mouth daily . topiramate (TOPAMAX) 25 MG tablet TAKE 25 MG AM AND 50 MG PM . Allergies Allergen Reactions Latex, Natural Rubber Rash Montelukast Other (See Comments) Halucinations Sertraline Anxiety Zofran [Ondansetron Hcl] GI Intolerance Latuda [Lurasidone] Other (See Comments) Suicidal Review of Systems Gastrointestinal: Positive for diarrhea, nausea and vomiting. All other systems reviewed and are negative. Patient Vitals for the past 24 hrs: BP Temp Temp src Pulse Resp SpO2 Height Weight 09/29/19 0357 4' 11 77.1 kg (170 lb) 09/29/19 0354 118/77 98.7 F (37.1 C) Oral 93 18 96 % Physical Exam Vitals signs and nursing note reviewed. Constitutional: General: She is not in acute distress. Appearance: Normal appearance. She is not ill-appearing, toxic-appearing or diaphoretic. HENT: Head: Normocephalic and atraumatic. Mouth/Throat: Mouth: Mucous membranes are moist. Pharynx: Oropharynx is clear. No oropharyngeal exudate or posterior oropharyngeal erythema. Eyes: Conjunctiva/sclera: Conjunctivae normal. Cardiovascular: Rate and Rhythm: Normal rate and regular rhythm. Pulses: Normal pulses. Heart sounds: Normal heart sounds. Pulmonary: Effort: Pulmonary effort is normal. Breath sounds: Normal breath sounds. Abdominal: General: Abdomen is flat. There is no distension. Palpations: Abdomen is soft. There is no mass. Tenderness: There is no abdominal tenderness. There is no right CVA tenderness, left CVA tenderness, guarding or rebound. Hernia: No hernia is present. Musculoskeletal: General: No tenderness. Right lower leg: No edema. Left lower leg: No edema. Skin: General: Skin is warm and dry. Capillary Refill: Capillary refill takes less than 2 seconds. Coloration: Skin is not jaundiced or pale. Findings: No lesion or rash. Neurological: Mental Status: She is alert and oriented to person, place, and time. Psychiatric: Mood and Affect: Mood normal. Behavior: Behavior normal. Laboratory & Radiographic Imaging (if done): Results for orders placed or performed during the hospital encounter of 09/29/19 POC CBC and Differential Result Value Ref Range WBC 11.80 (H) 4.50 - 11.00 K/mcL RBC 5.04 4.00 - 5.20 M/mcL Hemoglobin 15.1 12.0 - 16.0 g/dL Hematocrit 44.8 36.0 - 46.0 % MCV 88.9 80.0 - 100.0 fL MCH 30.0 26.0 - 34.0 pg MCHC 33.7 31.0 - 37.0 g/dL RDW - CV 13.3 11.6 - 14.8 % Platelets 270 150 - 400 K/mcL MPV 12.1 9.0 - 15.5 fL Neutrophils 83.4 % Lymphocytes 12.3 % Mixed 4.3 % Neutrophil Abs 9.8 (H) 1.7 - 7.0 K/mcl Lymphocyte Abs 1.5 0.9 - 4.0 K/mcl Mixed Abs 0.5 K/mcl POC Urinalysis Dipstick, Auto Result Value Ref Range Spec Grav, UA >=1.030 (H) 1.005 - 1.025 pH, UA 6.0 5.0 - 7.0 Protein, UA 30 (A) Negative mg/dL Glucose, UA Negative Negative mg/dL Ketones, UA Trace (A) Negative mg/dL Bilirubin, UA Small (A) Negative Urobilinogen, UA 0.2 <2.0 mg/dL Blood, UA Small (A) Negative Nitrite, UA Negative Negative Leukocyte Esterase, UA Moderate (A) Negative POC , Urine Result Value Ref Range POC Preg Test, Ur Negative Negative POC Basic Metabolic Panel Result Value Ref Range Glucose 107 (H) 65 - 99 mg/dL BUN 14 8 - 25 mg/dL Creatinine 0.62 0.40 - 1.10 mg/dL GFR 130 >=60 mL/min/1.73 m2 Sodium 141 135 - 145 mmol/L Potassium 3.8 3.5 - 5.1 mmol/L Chloride 106 98 - 108 mmol/L TCO2 25 21 - 32 mmol/L Ionized Calcium 4.7 4.5 - 5.3 mg/dL POC Liver Panel Plus Result Value Ref Range Albumin 4.1 3.2 - 5.2 g/dL Alkaline Phosphatase 63 40 - 140 U/L ALT (SGPT) 14 0 - 40 U/L AST (SGOT) 24 0 - 45 U/L Bilirubin, Total 0.9 0.0 - 1.3 mg/dL Total Protein 7.2 6.0 - 8.0 g/dL Amylase 56 25 - 115 U/L GGT 11 7 - 33 U/L No orders to display Procedures MDM Number of Diagnoses or Management Options Diagnosis management comments: No further vomiting while in the emergency department. Nausea is improving. With regards to the patient's urinalysis, denies UTI symptoms, this will be sent for culture and sensitivity. Patient has a benign abdominal exam. Presentation consistent with viral gastroenteritis. . . Clinical Impression: 1. Gastroenteritis ED Disposition ED Disposition Condition Comment Discharge Danis Mccartney discharged to home/self care in stable condition. Follow-up Information 1. Juan Nguyen MD. Specialty: Family Medicine [address] [place] [id number] Contact information for after-discharge care Follow-up information has not been specified. New Prescriptions promethazine (PHENERGAN) 25 MG tablet Take 1 (one) tablet (25 mg total) by mouth every 6 (six) hours as needed for nausea . Vazquez Colunga DO 09/29/19 0504 States nausea, vomiting and diarrhea since 3 p.m. yesterday. documented in this encounter Pt states right lower wisdom tooth is impacted and she has not been able to get in to see her dentist. Pt states she noticed redness and puss tonight. Denies fevers. ED PROVIDER NOTE [facility] EMERGENCY DEPARTMENT NAME: Rohan Mccartney AGE: 19 y.o. : 2000 VISIT DATE: 02/03/2020 CSN: [id number] PCP: Juan Nguyen MD Chief Complaint Patient presents with Dental Pain Is a 19-year-old female who presents to the emergency department with right- sided mandibular dental pain. Patient notes that she has had pain over the last few days. She is not able to see her dentist until tomorrow. Patient notes that tonight there is some purulence that came from her gum. No difficulty breathing or swallowing. No swelling. No fevers Past Medical History: Diagnosis Date Anxiety Borderline personality disorder (HCC) Depression Irritable bowel syndrome Major depressive disorder Polycystic ovarian disease depression Past Surgical History: Procedure Laterality Date adnoids TONSILLECTOMY tubes in ears History reviewed. No pertinent family history. Social History Socioeconomic History Marital status: Single Spouse name: Not on file Number of children: Not on file Years of education: Not on file Highest education level: Not on file Occupational History Not on file Social Needs Financial resource strain: Not on file Food insecurity Worry: Not on file Inability: Not on file Transportation needs Medical: Not on file Non-medical: Not on file Tobacco Use Smoking status: Former Smoker Years: 5.00 Types: Cigarettes Smokeless tobacco: Never Used Tobacco comment: 2-3 a day Substance and Sexual Activity Alcohol use: Not Currently Drug use: Never Sexual activity: Yes Partners: Male control/protection: None Lifestyle Physical activity Days per week: Not on file Minutes per session: Not on file Stress: Not on file Relationships Social connections Talks on phone: Not on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 orders to display MDM: Per Li SS patient may be DC'd. Resources were provided to her and [facility] was discussed. Patient was also referred to Dr. Marti. Patient verbalizes understanding and is very agreeable with discharge. Patient is aware to return to the emergency department with any increased severity of symptoms or any other concerns. Clinical Impression: 1. Medication reaction, initial encounter 2. H/O borderline personality disorder Disposition: Patient is being discharge home. [facility] Advanced Practice Provider [facility] Emergency Department (Please note that portions of this note have been completed with a voice recognition software. Efforts were made to correct any errors, but occasionally words are mis-transcribed.) Digna Jacques CNP 05/02/19 1646 REGISTRATION CART SIDE LI CART SIDE Digna COLBY is at the bedside. wanded by 106 and is negative Pt sent here from Dr. Ralph office. She denies SI/HI. She states she has been feeling more aggressive since starting Latuda. She did states that she had thoughts earlier this week about running her car into a guard rail but has no intentions of doing that. She is a single young mom. She has some support from her parents at home with her 7 month old daughter but she also has an autistic 3 year old brother. Her daughter has tenzin teething and not sleeping well. She recently stopped breast feeding as well. documented in this encounter ED PROVIDER NOTE [facility] EMERGENCY DEPARTMENT NAME: Rohan Mccartney AGE: 18 y.o. : 2000 VISIT DATE: 11/22/2018 CSN: [id number] PCP: Juan Nguyen MD Chief Complaint Patient presents with Sore Throat Is a 18-year-old female complaining of nasal congestion and a sore throat. She states her symptoms started yesterday she wants to make sure she does not have strep. She has a prior history of tonsillectomy. She had rhinorrhea congestion postnasal drip. Denies any fevers chills nausea vomiting. Symptoms are mild in intensity no improvement or worsening. She does not take anything [id number] because she is currently breast-feeding Past Medical History: Diagnosis Date Anxiety Borderline personality disorder (HCC) Depression Irritable bowel syndrome Polycystic ovarian disease depression Past Surgical History: Procedure Laterality Date adnoids TONSILLECTOMY tubes in ears History reviewed. No pertinent family history. Social History Socioeconomic History Marital status: Single Spouse name: Not on file Number of children: Not on file Years of education: Not on file Highest education level: Not on file Social Needs Financial resource strain: Not on file Food insecurity - worry: Not on file Food insecurity - inability: Not on file Transportation needs - medical: Not on file Transportation needs - non-medical: Not on file Occupational History Not on file Tobacco Use Smoking status: Never Smoker Smokeless tobacco: Never Used Substance and Sexual Activity Alcohol use: Not Currently Drug use: Never Sexual activity: Not on file Other Topics Concern Not on file Social History Narrative Not on file Previous Medications Medication Sig vitamin with Ca-Iron-FA 27-1 mg Tab Take 1 tablet by mouth daily . sertraline (ZOLOFT) 50 MG tablet Take 1/2 tablet by mouth every morning for 6 days, then increase to 1 tablet every morning Allergies Allergen Reactions Latex, Natural Rubber Rash Montelukast Other (See Comments) Halucinations Zofran [Ondansetron Hcl] GI Intolerance Review of Systems Constitutional: Negative for fever. Gastrointestinal: Negative for vomiting. Patient Vitals for the past 24 hrs: BP Temp Temp src Pulse Resp SpO2 Height Weight 11/22/18 2220 114/78 98 F (36.7 C) Oral 71 16 96 % 4' 11 72.6 kg (160 lb) Physical Exam Constitutional: She appears well-developed and well-nourished. HENT: Head: Normocephalic and atraumatic. Mouth/Throat: Uvula is midline, oropharynx is clear and moist and mucous membranes are normal. Neck: Neck supple. Cardiovascular: Normal rate, regular rhythm and normal heart sounds. Pulmonary/Chest: Effort normal and breath sounds normal. Abdominal: Soft. Bowel sounds are normal. Skin: Skin is warm and dry. Nursing note and vitals reviewed. Laboratory & Radiographic Imaging (if done): Results for orders placed or performed during the hospital encounter of 11/22/18 Rapid Strep Screen Result Value Ref Range Strep A Ag Presumptive Negative for Group A Streptococcus Presumptive Negative for Group A Streptococcus No orders to display Procedures MDM Number of Diagnoses or Management Options Nasopharyngitis: . . Clinical Impression: SNOMED CT(R) 1. Nasopharyngitis NASOPHARYNGITIS ED Disposition ED Disposition Condition Comment Discharge Stable Rohan Mccartney discharged to home/self care in stable condition. Follow-up Information 1. Juan Nguyen MD. Specialty: Family Medicine [address] [place], [place] [id number] Contact information for after-discharge care Follow-up information has not been specified. Jeremias River MD 11/22/18 2481 Sore throat started yesterday night. And woke up today feeling congested. Cough, no nausea or diarrhea. No fever at home. documented in this encounter Li Pereyra, SOLDERING MACHINE OPERATOR [employer] - 05/02/2019 3:18 PM EDT Consult Notes (unrecognized section and content) ED [facility] Initial Assessment Date: 05/02/2019 Time: 3:18 PM Patient Name: Rohan Mccartney Date of : 2000 Sex: Female Admit Date/Time: 05/02/2019 1:10 PM GENERAL INFORMATION General Information Poiser Balance Needs: Not needed Information Provided By: Patient Patient Support System: Family/Friends Current Living Arrangements: Lives with grandparents Type of Residence: Private residence Name and Contact of Collateral Provider: Alissa (Parent) [phone] LEGAL STATUS Voluntary DIAGNOSIS/ACTIVE PROBLEM LIST Hospital Problem List Codes Depression ICD-10-CM: F32.9 ICD-9-CM: 311 CHIEF COMPLAINT/HISTORY OF PRESENT ILLNESS Chief Complaint/History Present Illness Chief Complaint: Increased anger Current Symptoms: Other (Comment)(Pt came at recommendation of doctor) Problems Related to: Other psychosocial/environmental problems (Comment) History of Present Illness: Patient (Pt) presents to the emergency department (ED) for increased anger. Pt states that her primary care doctor, Dr. Nguyen, placed her on Latuda this past Sunday. Pt states that Dr. Nguyen called her today to see how she was doing on the new medication. Pt admits that she told Dr. Nguyen she has been feeling increasingly agitated since being placed on the medication and made the comment, I was driving and was so mad I thought I could just crash my car into the guardrail. Pt denies that she was suicidal but instead was just feeling angry. Pt denies suicidal/homicidal ideations to this worker, LASHA Sawyer, and CONCHITA Saavedra. Pt admits that she is dealing with multiple stressors as she is a single mother and she is behind on her bills. Pt states that she currently works but her job does not provide her enough hours. Pt does reside with her grandparents who help her out. Pt is voluntary and does not want to be admitted to the hospital. Pt states she came to the hospital because she thought the doctor might change her medication. Pt is calm, cooperative, smiling, in good spirits, joking. Pt goes to counseling twice a week at [facility]. Pt's counselor is currently trying to get Pt in with a psychiatrist. Pt states her father is not in her life but she has a great relationship with her mother. Pt lives with her grandparents whom she also gets along. Pt has a 7 month old daughter that she says is her best friend. PAST PSYCHIATRIC HISTORY Past Psychiatric History Previous Psychiatric Diagnosis: Borderline personality, Depression Previous Psychiatric Medications: Anti-depressants Previous Psychiatric Hospitalizations: [facility] Current Psychiatric Medications: Denies ALCOHOL/DRUG ABUSE HISTORY Alcohol/Drug Abuse History Current Alcohol Use (Frequency): Occasional Amount of Alcohol Consumed: Pt reports she had something to drink at mother's wedding in March Pattern of Alcohol Use: Other (Comment) Date Last Used: Beginning of March Withdrawal Symptoms/History of Withdrawal: None Current Drug Use: No History/Current Alcohol/Drug Treatment: None MENTAL STATUS EVALUATION Mental Status Evaluation General Appearance: Equal to stated age Orientation: Oriented to person, place, and time Level of Consciousness: Alert Mood/Affect: Other (Comment)(Calm, cooperative, appropriate affect, smiling, laughing) Behavior: Cooperative, Appropriate to situation, Ability to maintain focus Remote Memory: WDL Language and Speech Content: Appropriate Preoccupations: External stressors Impulse Control: Is reflective and able to resist urges Insight: Awareness Judgment: Good PATIENT STRENGTHS Patient Strengths Patient Strengths: Basic self-care skills, Employment, Family/friends, Housing, Intellectual abilities, Insight, Interpersonal skills, Mental health services, Motivation to change, Physical health, Resourcefulness RISK ASSESSMENT Risk Factors Recent Psychological Experiences: None Current Suicidal Ideation: No Previous Suicidal Ideation: Yes Describe Previous Suicidal Ideation: Pt admits to having suicidal ideations 2 years ago Current Suicide Attempt: No Previous Suicide Attempt: No Current Self Harm Behavior: No Previous Self Harm Behavior: Yes Describe Previous Self Harm: Pt admits to cutting when she was younger Current Plans to Harm Another: No Previous Plans to Harm Another: No History of Attempts to Harm Another: No Access to Weapons: No Violent Episode: No Previous Violent Episode: No Family History of Suicide: No Family History of Mental Illness: Yes Describe Family History of Mental Illness: Mother-depression Family History of Substance Abuse: No Elopement: No risk Methods to Calm Down: Quiet time in room, Talk with staff, Watch TV Restraint Risk Factors: None PROTECTIVE FACTORS Protective Factors Family and Community Support (Connectedness): Yes Ongoing Medical and Mental Health Services (Community Support): Yes Skills In Problem Solving and Conflict Resolution (Coping Skills): Yes Cultural and Voodoo Beliefs: No Access to Weapons: No TREATMENT RECOMMENDATIONS AND CLINICAL SUMMARY Treatment Recommendations and Clinical Summary Current Recommendations: Referral for medication management RATIONALE/PLAN FOR TREATMENT: Pt is here voluntarily and states she does not want to stay at the hospital. Pt denies suicidal/homicidal ideations and is not psychotic. Did update Digna to Pt's wishes. Pt is comfortable discharging the Pt. Did provide counseling resources for the Pt. CONCHITA Saavedra, updated. documented in this encounter ED Attestation Note - Marium Johnson DO - 05/02/2019 3:27 PM EDTQuick Note - Kaylin Moore RN - 08/06/2020 5:11 PM EST Miscellaneous Notes (unrecog nized section and content) ED Attestation: I was personally available for consult in the emergency department. I have reviewed the chart and agree with the documentation as recorded by the RAQUEL (Advanced Practice Provider), including the assessment, treatment plan, and disposition documented in this encounter Discharge instructions explained to pt, pt verbalized understanding and denied questions. Encouraged to call us with any questions or concerns. Provided with printed prescription to take home. POC resolved POC reviewed with patient POC reviewed with patient documented in this encounter Jennifer Montemayor MD - 08/06/2020 4:35 PM EST H&P Notes (unrecognized sect ion and content) OBSTETRIC HISTORY AND PHYSICAL Chief complaint: Chronic headaches and dysuria with flank pain. at 29 weeks and 1 day. History of present illness: The patient is a 19-year-old 3 para 0-1-1-1 female. She was given a due date of October 212020 by her leadership intern in [place]. She has a high risk as her first delivery occurred at 34 weeks gestation. She started having headaches off and on during this . Because she developed some dysuria and flank pain she decided to come to [facility] for an evaluation. She appears to be comfortable coming to [facility] since she had her last delivery here at 34 weeks gestation. Past medical history: Her records include the diagnoses as follows anxiety and depression, borderline personality disorder, posttraumatic stress disorder. Irritable bowel syndrome. Allergies: Latex. Medications: vitamins. Baby aspirin daily. Surgeries: None. Obstetric history: 1 spontaneous vaginal delivery at 34 weeks gestation. 1 miscarriage. Social history: She smokes 1/2 pack of cigarettes per day denies use of alcohol or illicit drugs. She is single. Family history: Negative for hypertension, negative for diabetes, negative for bleeding disorders. Review of systems: Negative for recent known exposure to COVID-19. Negative for fever, chills, nausea, vomiting, visual changes, decreased sensation of smell, back pain, body aches. Physical examination: She is well-appearing and in no acute distress. 117/81. Pulse of 87. Temperature 98.6. Height of 4 feet 11 inches. Respiratory rate 16. Head eyes ears nose and throat are within normal limits, she wears glasses. Neck is supple. Chest is clear. Heart is regular rate and rhythm without murmurs. Breasts are without lesions. She has no adenopathy. Back shows no costovertebral angle tenderness. Abdomen is gravid and nontender with a fundal height of 28 cm. Extremities are without edema. Pertinent labs: Her urine is cloudy there is a large amount of leukocytes she has greater than 50 white blood cells per high-power field bacteria are present. She was tested flu for influenza a and B as well as COVID-19, all 3 of those tests were negative. monitoring: Not surprisingly she had a reassuring tracing that was category 1 throughout. Contractions were exceedingly rare. Assessment and plan: This is a 19-year-old female at 29 weeks and 1 day gestation who is at high risk for delivery as is demonstrated by her 34-week vaginal delivery with her last . With her complaints and urine analysis suggestive of a urinary tract infection it was imperative that she be treated. It is well- known that missing a urinary tract infection during places someone at higher risk for delivery. In addition she had headaches and received a total of 2 doses of Tylenol 3 during her hospitalization. It appeared that her headaches did not improve, however her dysuria and flank pain were resolved after 3 doses of Ancef. A urine culture is pending. She will be released to home and she will be asked to follow-up with her own leadership intern in [place]. I will give her 2 or 3 more doses of Tylenol 3 for headaches to be used at night. documented in this encounter Scheduled Active and Recently Administ ered Medications (unrecognized section and content) Medication Order 01/11/2021 01/12/2021 01/13/2021 lidocaine viscous 2% 10 mL and maalox plus 30 mL (GI COCKTAIL) 40 mL solution (COMPLETED) 40 mL, Oral, Once, On Isi 01/13/21 at 1820, For 1 dose, Nursing to scan and administer as individual components 1832 (Given - Provid er: Rip Lovell RN) Scheduled Medication Order 03/20/2023 03/21/2023 03/22/2023 Acetaminophen (TYLENOL) tablet 650 mg (COMPLETED) 650 mg, Oral, ONCE, 1 dose, On Sun03/21/23 at 2130, 2208 (Given - Provider: Kanchan Rivera RN) diphenhydrAMINE (BENADRYL) tablet 25 mg (COMPLETED) 25 mg, Oral, ONCE, 1 dose, On Sun03/21/23 at 2230 2221 (Given - Provider: Kanchan Rivera RN) iohexol (OMNIPAQUE) 350 MG/ML injection 75 mL (COMPLETED) 75 mL, Intravenous, ONCE, 1 dose, On Sun03/21/23 at 2230, Extravasation Risk, Radiology Procedure 2258 (Given - Radiology - Provider: Candis Leroy) Ketorolac (TORADOL) injection 30 mg (COMPLETED) 30 mg, Intravenous, ONCE, 1 dose, On Sun03/21/23 at 2130 2207 (Given - Provider: Kanchan Rivera, CONCHITA) Metoclopramide (REGLAN) injection 10 mg (COMPLETED) 10 mg, Intravenous, ONCE, 1 dose, On Sun03/21/23 at 2130, If given via IV route: administer slowly over 2 minutes. 2207 (Given - Provider: Kanchan Rivera, CONCHITA) Sodium chloride 0.9% IV solution 1,000 mL (COMPLETED) 1,000 mL, Intravenous, ONCE, 1 dose, On Sun03/21/23 at 2130 2214 ($$New Bag$$ - Provider : Mirtha Rivera RN)2331 (Stopped - Provider: Nicol Knutson, RN) Sodium chloride 0.9% IV solution 75 mL (COMPLETED) 75 mL, Intravenous, ONCE, 1 dose, On Sun03/21/23 at 2230, Radiology Procedure 2259 ($$New Bag$$ - Provider : Candis Leroy)2320 (Stopped - Provider: Nicol Knutson, CONCHITA) Care Teams (unrecognized sec tion and content) Lead Java Developer Architect Relationship Specialty Start Date End Date Juan Nguyen MD [address] [place] [address] PCP - General Family Medicine 09/29/19 Regina Shah, RADHA [address] [facility] [address] [place] [address] Nurse Practitioner Obstetrics/Gynecology 10/30/19 Feliz Waters MD Beauty Culturist Apprentice Obstetrics/Gynecology 10/30/19 Brie Odell MD [address] [facility] [address] [place] [address] Beauty Culturist Apprentice Obstetrics/Gynecology 10/30/19 Vee Lofton MD [address] [place] [address] Beauty Culturist Apprentice Obstetrics/Gynecology 10/30/19 Rema Euceda, [facility] [facility] [place] [address] Photocopying Machine Operator Obstetrics/Gynecology 10/30/19 Lead Java Developer Architect Relationship Specialty Start Date End Date Juan Nguyen MD [address] [place] [address] PCP - General Family Medicine 09/29/19 Regina Shah, HARVEST CREW SUPERVISOR [address] [place] [address] Nurse Practitioner Obstetrics/Gynecology 10/30/19 Feliz Waters MD Beauty Culturist Apprentice Obstetrics/Gynecology 10/30/19 Brie Odell MD [address] [place] [address] Beauty Culturist Apprentice Obstetrics/Gynecology 10/30/19 Vee Lofton MD [address] [place] [address] Beauty Culturist Apprentice Obstetrics/Gynecology 10/30/19 Rema Euceda, [facility] [address] [facility] [place] [address] Photocopying Machine Operator Obstetrics/Gynecology 10/30/19 Lead Java Developer Architect Relationship Specialty Start Date End Date Juan Nguyen MD [address] [place], [place] [id number] PCP - General Family Medicine 09/29/19 Regina Shah, HARVEST CREW SUPERVISOR [address] [facility] [place] [address] Nurse Practitioner Obstetrics/Gynecology 10/30/19 Feliz Waters MD Beauty Culturist Apprentice Obstetrics/Gynecology 10/30/19 Brie Odell MD [address] [place] [address] Beauty Culturist Apprentice Obstetrics/Gynecology 10/30/19 Vee Lofton MD [address] [facility] [address] Beauty Culturist Apprentice Obstetrics/Gynecology 10/30/19 Rema Euceda, ALLYSSA [address] [place] [address] Photocopying Machine Operator Obstetrics/Gynecology 10/30/19 Lead Java Developer Architect Relationship Specialty Start Date End Date Juan Nguyen MD [facility] [place] [address] PCP - General Family Medicine 09/29/19 Regina Shah, RADHA [address] [facility] [place] [address] Nurse Practitioner Obstetrics/Gynecology 10/30/19 Feliz Waters MD Beauty Culturist Apprentice Obstetrics/Gynecology 10/30/19 Brie Odell MD [address] [place] [address] Beauty Culturist Apprentice Obstetrics/Gynecology 10/30/19 Vee Lofton MD [address] [place] [address] Beauty Culturist Apprentice Obstetrics/Gynecology 10/30/19 Rema Euceda, ALLYSSA [address] [place] [address] Photocopying Machine Operator Obstetrics/Gynecology 10/30/19 Lead Java Developer Architect Relationship Specialty Start Date End Date Juan Nguyen MD [address] [place] [address] PCP - General Family Medicine 09/29/19 Regina Shah CNP [address] [place] [address] Nurse Practitioner Obstetrics/Gynecology 10/30/19 Feliz Waters MD Beauty Culturist Apprentice Obstetrics/Gynecology 10/30/19 Brie Odell MD [address] [place] [address] Beauty Culturist Apprentice Obstetrics/Gynecology 10/30/19 Vee Lofton MD [address] [place] [address] Beauty Culturist Apprentice Obstetrics/Gynecology 10/30/19 Rema Euceda CNM [address] [place] [address] Photocopying Machine Operator Obstetrics/Gynecology 10/30/19 Lead Java Developer Architect Relationship Specialty Start Date End Date Hayley Rincon, RADHA [address] [place] [address] PCP - General Family Medicine 06/06/22 Regina Shah CNP [address] [place] [address] Nurse Practitioner Obstetrics/Gynecology 10/30/19 Feliz Waters MD [facility] Gabriela Angel [address] [place] [address] Beauty Culturist Apprentice Obstetrics/Gynecology 10/30/19 Brie Odell MD [address] [place], [place] [phone] Beauty Culturist Apprentice Obstetrics/Gynecology 10/30/19 Vee Lofton MD [address] [place] [address] Beauty Culturist Apprentice Obstetrics/Gynecology 10/30/19 Rema Euceda CNM [address] [place], [place] [phone] Photocopying Machine Operator Obstetrics/Gynecology 10/30/19 Lead Java Developer Architect Relationship Specialty Start Date End Date Hayley Rincon APRN-HARVEST CREW SUPERVISOR [address] [place], [place] [id number] PCP - General Certified Nurse Practitioner 03/21/23 Lead Java Developer Architect Relationship Specialty Start Date End Date Hayley Rincon CNP [address], [place] [id number] PCP - General Family Medicine 06/06/22 Regina Shah CNP [address] [place] [address] Nurse Practitioner Obstetrics/Gynecology 10/30/19 Feliz Waters MD [address] [place] [phone] Beauty Culturist Apprentice Obstetrics/Gynecology 10/30/19 Brie Odell MD [address] [place] [address] Beauty Culturist Apprentice Obstetrics/Gynecology 10/30/19 Vee Lofton MD [address] [place] [address] Beauty Culturist Apprentice Obstetrics/Gynecology 10/30/19 Rema Euceda CNM [address] [place] [address] Photocopying Machine Operator Obstetrics/Gynecology 10/30/19 Lead Java Developer Architect Relationship Specialty Start Date End Date Hayley Rincon, RADHA [address] [place] [address] PCP - General Family Medicine 06/06/22 Regina Shah CNP [address] [place] [address] Nurse Practitioner Obstetrics/Gynecology 10/30/19 Feliz Waters MD [address] [place] [address] Beauty Culturist Apprentice Obstetrics/Gynecology 10/30/19 Brie Odell MD [address] [place] [address] Beauty Culturist Apprentice Obstetrics/Gynecology 10/30/19 Vee [place] MD [address] [place] [address] Beauty Culturist Apprentice Obstetrics/Gynecology 10/30/19 Rema Euceda CNM [address] [place] [address] Photocopying Machine Operator Obstetrics/Gynecology 10/30/19 Lead Java Developer Architect Relationship Specialty Start Date End Date Hayley Rincon APRN-HARVEST CREW SUPERVISOR [address] [place] [address] PCP - General Certified Nurse Practitioner 03/21/23 Lead Java Developer Architect Relationship Specialty Start Date End Date Hayley Rincon CNP [address] [place] [address] PCP - General Family Medicine 06/06/22 Regina Shah CNP [address] [place] [address] Nurse Practitioner Obstetrics/Gynecology 10/30/19 Feliz Waters MD [facility] Joyodell Angel [address] [place] [address] Beauty Culturist Apprentice Obstetrics/Gynecology 10/30/19 Brie Odell MD [address] [place] [address] Beauty Culturist Apprentice Obstetrics/Gynecology 10/30/19 Vee [place] MD [address] [place] [address] Beauty Culturist Apprentice Obstetrics/Gynecology 10/30/19 Rema Euceda CNM [address] [place] [address] Photocopying Machine Operator Obstetrics/Gynecology 10/30/19 Lead Java Developer Architect Relationship Specialty Start Date End Date Hayley Rincon CNP [address] [place] [address] PCP - General Family Medicine 06/06/22 Regina Shah CNP [address] [place] [address] Nurse Practitioner Obstetrics/Gynecology 10/30/19 Feliz Waters MD [address] [place] [address] Beauty Culturist Apprentice Obstetrics/Gynecology 10/30/19 Brie Odell MD [address] [place] [address] Beauty Culturist Apprentice Obstetrics/Gynecology 10/30/19 Vee [place] MD [address] [place] [address] Beauty Culturist Apprentice Obstetrics/Gynecology 10/30/19 Rema Euceda CNM [address] [place] [address] Photocopying Machine Operator Obstetrics/Gynecology 10/30/19 Lead Java Developer Architect Relationship Specialty Start Date End Date Hayley Rincon APRN-HARVEST CREW SUPERVISOR [address] [place] [address] PCP - General Certified Nurse Practitioner 03/21/23 Lead Java Developer Architect Relationship Specialty Start Date End Date Hayley Rincon CNP [address] [place] [address] PCP - General Family Medicine 06/06/22 Regina Shah CNP [address] [place] [address] Nurse Practitioner Obstetrics/Gynecology 10/30/19 Feliz Waters MD [address] Angel [address] [place] [address] Beauty Culturist Apprentice Obstetrics/Gynecology 10/30/19 Brie Odell MD [address] [place] [address] Beauty Culturist Apprentice Obstetrics/Gynecology 10/30/19 Vee [place] MD [address] [place] [address] Beauty Culturist Apprentice Obstetrics/Gynecology 10/30/19 Rema Euceda CNM [address] [place] [address] Photocopying Machine Operator Obstetrics/Gynecology 10/30/19 Lead Java Developer Architect Relationship Specialty Start Date End Date Hayley Rincon APRN-HARVEST CREW SUPERVISOR [address] [place] [address] PCP - General Certified Nurse Practitioner 12/03/23 Lead Java Developer Architect Relationship Specialty Start Date End Date Hayley Rincon APRN-HARVEST CREW SUPERVISOR [address] [place] [address] PCP - General Certified Nurse Practitioner 12/03/23 Lead Java Developer Architect Relationship Specialty Start Date End Date Hayley Rincon APRN-HARVEST CREW SUPERVISOR [address] [place] [address] PCP - General Certified Nurse Practitioner 12/03/23 Lead Java Developer Architect Relationship Specialty Start Date End Date Hayley Rincon CNP [address] [place] [address] PCP - General Family Medicine 06/06/22 Regina Shah CNP [address] [place] [address] Nurse Practitioner Obstetrics/Gynecology 10/30/19 Feliz Waters MD [address] [place] [address] Beauty Culturist Apprentice Obstetrics/Gynecology 10/30/19 Brie Odell MD [address] [facility] [address] [place] [address] Beauty Culturist Apprentice Obstetrics/Gynecology 10/30/19 Vee [place] MD [address] [facility] [address] [place] [address] Beauty Culturist Apprentice Obstetrics/Gynecology 10/30/19 Rema Euceda CNM [address] [facility] [address] Photocopying Machine Operator Obstetrics/Gynecology 10/30/19 Lead Java Developer Architect Relationship Specialty Start Date End Date Hayley Rincon APRN-HARVEST CREW SUPERVISOR [address] [place] [address] PCP - General Certified Nurse Practitioner 12/03/23 Lead Java Developer Architect Relationship Specialty Start Date End Date Hayley Rincon APRN-HARVEST CREW SUPERVISOR [address] [place] [address] PCP - General Certified Nurse Practitioner 12/03/23 Lead Java Developer Architect Relationship Specialty Start Date End Date Hayley Rincon CNP [address] [place] [address] PCP - General Family Medicine 06/06/22 Regina Shah CNP [address] [place] [address] Nurse Practitioner Obstetrics/Gynecology 10/30/19 Feliz Waters MD [address] [place] [address] Beauty Culturist Apprentice Obstetrics/Gynecology 10/30/19 Brie Odell MD [address] [place] [address] Beauty Culturist Apprentice Obstetrics/Gynecology 10/30/19 Vee [place] MD [address] [place] [address] Beauty Culturist Apprentice Obstetrics/Gynecology 10/30/19 Rema Euceda CNM [address] [place] [address] Photocopying Machine Operator Obstetrics/Gynecology 10/30/19 Lead Java Developer Architect Relationship Specialty Start Date End Date Hayley Rincon, RADHA [address] [place] [address] PCP - General Family Medicine 06/06/22 Regina Shah CNP [address] [place] [address] Nurse Practitioner Obstetrics/Gynecology 10/30/19 Feliz Waters MD [address] [place] [address] Beauty Culturist Apprentice Obstetrics/Gynecology 10/30/19 Brie Odell MD [address] [place] [address] Beauty Culturist Apprentice Obstetrics/Gynecology 10/30/19 Vee [place] MD [address] [place] [address] Beauty Culturist Apprentice Obstetrics/Gynecology 10/30/19 Rema Euceda CNM [address] [place] [address] Photocopying Machine Operator Obstetrics/Gynecology 10/30/19 Lead Java Developer Architect Relationship Specialty Start Date End Date Hayley Rincon, RADHA [address] [place] [address] PCP - General Family Medicine 06/06/22 Regina Shah, RADHA [address] [place] [address] Nurse Practitioner Obstetrics/Gynecology 10/30/19 Feliz Waters MD [address] [place] [address] Beauty Culturist Apprentice Obstetrics/Gynecology 10/30/19 Brie Odell MD [address] [place] [address] Beauty Culturist Apprentice Obstetrics/Gynecology 10/30/19 Vee [place] MD [address] [place] [address] Beauty Culturist Apprentice Obstetrics/Gynecology 10/30/19 Rema Euceda CN [address] [place] [address] Photocopying Machine Operator Obstetrics/Gynecology 10/30/19 Lead Java Developer Architect Relationship Specialty Start Date End Date Hayley Rincon, RADHA [address] [place] [address] PCP - General Family Medicine 06/06/22 Regina Shah CNP [address] [place] [address] Nurse Practitioner Obstetrics/Gynecology 10/30/19 Feliz Waters MD [address] [place] [address] Beauty Culturist Apprentice Obstetrics/Gynecology 10/30/19 Brie Odell MD [address] [place] [address] Beauty Culturist Apprentice Obstetrics/Gynecology 10/30/19 Vee [place] MD [address] [place] [address] Beauty Culturist Apprentice Obstetrics/Gynecology 10/30/19 Rema Euceda CNM [address] [place] [address] Photocopying Machine Operator Obstetrics/Gynecology 10/30/19 Lead Java Developer Architect Relationship Specialty Start Date End Date Hayley Rincon CNP [address] [place] [address] PCP - General Family Medicine 06/06/22 Regina Shah CNP [address] [place] [address] Nurse Practitioner Obstetrics/Gynecology 10/30/19 Feliz Waters MD [address] [place] [address] Beauty Culturist Apprentice Obstetrics/Gynecology 10/30/19 Brie Odell MD [address] [place] [address] Beauty Culturist Apprentice Obstetrics/Gynecology 10/30/19 Vee [place] MD [address] [place] [address] Beauty Culturist Apprentice Obstetrics/Gynecology 10/30/19 Rema Euceda CNM [address] [place] [address] Photocopying Machine Operator Obstetrics/Gynecology 10/30/19 Lead Java Developer Architect Relationship Specialty Start Date End Date Hayley Rincon, HARVEST CREW SUPERVISOR [address] [place] [address] PCP - General Family Medicine 06/06/22 Regina Shah, HARVEST CREW SUPERVISOR [address] [place] [address] Nurse Practitioner Obstetrics/Gynecology 10/30/19 Feliz Waters MD [address] [place] [address] Beauty Culturist Apprentice Obstetrics/Gynecology 10/30/19 Brie Odell MD [address] [place] [address] Beauty Culturist Apprentice Obstetrics/Gynecology 10/30/19 Vee [place] MD [address] [place] [address] Beauty Culturist Apprentice Obstetrics/Gynecology 10/30/19 Rema Euceda CNM [address] [place] [address] Photocopying Machine Operator Obstetrics/Gynecology 10/30/19 Lead Java Developer Architect Relationship Specialty Start Date End Date Hayley Rincon CNP [address] [place] [address] PCP - General Family Medicine 06/06/22 Regina Shah CNP [address] [place] [address] Nurse Practitioner Obstetrics/Gynecology 10/30/19 Feliz Waters MD [address] [place] [address] Beauty Culturist Apprentice Obstetrics/Gynecology 10/30/19 Brie Odell MD [address] [place] [address] Beauty Culturist Apprentice Obstetrics/Gynecology 10/30/19 Vee [place] MD [address] [place] [address] Beauty Culturist Apprentice Obstetrics/Gynecology 10/30/19 Rema Euceda CNM [address] [place] [address] Photocopying Machine Operator Obstetrics/Gynecology 10/30/19 Lead Java Developer Architect Relationship Specialty Start Date End Date Hayley Rincon APRN-HARVEST CREW SUPERVISOR [address] [place] [address] PCP - General Certified Nurse Practitioner 12/03/23 Lead Java Developer Architect Relationship Specialty Start Date End Date Hayley Rincon CNP [address] [place] [address] PCP - General Family Medicine 06/06/22 Regina Shah CNP [address] [place] [address] Nurse Practitioner Obstetrics/Gynecology 10/30/19 Feliz Waters MD [address]riela [address] [place] [address] Beauty Culturist Apprentice Obstetrics/Gynecology 10/30/19 Brei Odell MD [address] [place] [address] Beauty Culturist Apprentice Obstetrics/Gynecology 10/30/19 eVe [place] MD [address] [place] [address] Beauty Culturist Apprentice Obstetrics/Gynecology 10/30/19 Rema Euceda CNM [address] [place] [address] Photocopying Machine Operator Obstetrics/Gynecology 10/30/19 Lead Java Developer Architect Relationship Specialty Start Date End Date Hayley Rincon CNP [address] [place] [address] PCP - General Family Medicine 06/06/22 Regina Shah CNP [address] [place] [address] Nurse Practitioner Obstetrics/Gynecology 10/30/19 Feliz Waters MD [address]ela [address] [place] [address] Beauty Culturist Apprentice Obstetrics/Gynecology 10/30/19 Brie Odell MD [address] [place] [address] Beauty Culturist Apprentice Obstetrics/Gynecology 10/30/19 Vee [place] MD [address] [facility] [place] [address] Beauty Culturist Apprentice Obstetrics/Gynecology 10/30/19 Rema EucedaISAURA salter [address] [facility] [place] [address] Photocopying Machine Operator Obstetrics/Gynecology 10/30/19 Team Status: Inactive Member Role Status Dates Dr. Kelsea Landers MD Attending Provider Active Start: January 13, 2025 End: January 13, 2025 Team Status: Inactive Member Role/Relationship Status Dates Dr. Kelsea Landers MD Attending Provider Active Start: January 13, 2025 End: January 13, 2025 Team Status: Inactive Member Role/Relationship Status Dates Dr. Kelsea Landers MD Attending Provider Active Start: January 30, 2025 End: January 30, 2025 <item><item> Privacy Markings (unrecogniz ed section and content) Section Author: Sandhya Ruiz PROHIBITION ON REDISCLOSURE OF CONFIDENTIAL INFORMATION This notice accompanies a disclosure of information concerning a client made to you with the consent of such client. Section Author: Sandhya Ruiz PROHIBITION ON REDISCLOSURE OF CONFIDENTIAL INFORMATION This notice accompanies a disclosure of information concerning a client made to you with the consent of such client. Goals (unrecognized section and content) Goals may be documented in a n alternate sectionGoals may be documented in an alternate section FOR RECORDS PERTAINING TO PATIENTS WHO ARE OR HAVE BEEN ENROLLED IN A CHEMICAL DEPENDENCY/SUBSTANCEABUSE PROGRAM, SOME INFORMATION MAY BE OMITTED. This clinical summary was aggregated from multiple sources. Caution should be exercised in using it in the provision of clinical care. This summary normalizes information from multiple sources, and as a consequence, information in this document may materially change the coding, format and clinical context of patient data. In addition, data may be omitted in some cases. CLINICAL DECISIONS SHOULD BE BASED ON THE PRIMARY CLINICAL RECORDS. [email or web address] [facility]. provides no warranty or guarantee of the accuracy or completeness of information in this document.
[2025-02-02 22:07] LABS: Chlamydia By Nucleic Acid AMP Negative (Negative); Gonococcus By Nucleic Acid AMP Negative (Negative)
== END | disposition home or self-care (01) ==
LOC: LABSPEC 12:03
PROVIDERS: Referring Provider Obstetrics & Gynecology; Visit Provider Obstetrics & Gynecology
DX: O09.299 Supervision of pregnancy with other poor reproductive or obstetric history, unspecified trimester (principal); Z12.4 Encounter for screening for malignant neoplasm of cervix; Z3A.00 Weeks of gestation of pregnancy not specified
CPT/HCPCS: 82570; 84156; 87086; 87491; 87591; 88175; G0145

== ENCOUNTER → 2025-02-23 | Outpatient (CLI) | payer MEDICAID, SELFPAY ==
[2025-02-23 12:17] LABS: Hematocrit 40.2 % (37-47); Hemoglobin 13.9 g/dL (12.0-15.0); Immature Granulocytes Count 0.020 X10^3/uL (0.0-0.0); Mean Corp Hgb Conc 34.6 g/dL (32-36); Mean Corpuscular Volume 87.4 fL (81-99); Mean Platelet Vol. 11.7 fl (6.2-12.0); NRBC Flagged by Analyzer 0 % (0-5); Platelet Count 263 K/mm3 (150-450); RBC Distribution Width CV 12.4 % (11.6-14.6); RBC Distribution Width SD 39.5 fl (35.1-43.9); Red Blood Count 4.60 M/mm3 (4.2-5.4); White Blood Count 7.6 K/mm3 (4.4-11.0)
[2025-02-23 12:36] LABS: AST(SGOT) 18 U/L (<=31); Alanine Aminotransfer ALT/SGPT 26 U/L (<=34); Albumin, Serum 4.6 g/dL (3.5-5.0); Alkaline Phosphatase 45 U/L (35-104); Anion Gap 14 (5-15); BUN 8 mg/dL (4-19); BUN/Creat Ratio 12.1 RATIO (10-20); Calcium,Total 10.1 mg/dL (7.6-11.0); Carbon Dioxide 21.8 mmol/L (21.0-32.0); Chloride 102 mmol/L (98-108); Globulin 2.9 g/dL (2.2-4.2); Glucose 83 mg/dL (70-99); Potassium 4.0 mmol/L (3.3-5.1)
[2025-02-23 18:09] LABS: HIV Nonreactive (Nonreactive); Hepatitis B Surface Antigen Nonreactive (Nonreactive); Hepatitis C Antibody Nonreactive (Nonreactive); Syphilis Antibodies Nonreactive (Nonreactive)
== END | disposition home or self-care (01) ==
PROVIDERS: Obstetrics & Gynecology; Referring Provider Obstetrics & Gynecology; Visit Provider Obstetrics & Gynecology
DX: O99.210 Obesity complicating pregnancy, unspecified trimester (principal); Z86.39 Personal history of other endocrine, nutritional and metabolic disease; O09.90 Supervision of high risk pregnancy, unspecified, unspecified trimester; Z3A.00 Weeks of gestation of pregnancy not specified
CPT/HCPCS: 36415; 80053; 83036; 85025; 86703; 86762; 86780; 86803; 86850; 86900; 86901; 87340

== ENCOUNTER → 2025-03-25 | Outpatient (CLI) | payer MEDICAID, SELFPAY | END | disposition home or self-care (01) | LOC: LABSPEC 14:54 | PROVIDERS: Visit Provider Nurse Practitioner Women's Health | DX: O09.92 Supervision of high risk pregnancy, unspecified, second trimester (principal); O99.891 Other specified diseases and conditions complicating pregnancy; M54.50 Low back pain, unspecified; Z3A.00 Weeks of gestation of pregnancy not specified | CPT/HCPCS: 87086; 87088 ==

== ENCOUNTER → 2025-03-31 | Outpatient (CLI) | payer MEDICAID, SELFPAY ==
--- NOTE | 2025-03-31 12:48 | US_ITS ---
PROCEDURE: KIDNEY AND BLADDER 03/31/2025 REASON FOR EXAM: HISTORY OF HYDRONEPHROSIS/ LOWER BACK PAIN TECHNIQUE: Procedure Code: USKI Modality: US Procedure: KIDNEY AND BLADDER FINDINGS: Kidneys: Normal renal sizes, parenchymal thicknesses, and echotextures. Kipling: No evidence of hydronephrosis. Cysts or Masses: Right renal cysts. Other: Hyperechoic medullary pyramids suggestive of medullary sponge kidneys. RIGHT Kidney Size: 12.2 cm x 4.6 cm x 3.7 cm Volume: 109.33 mL Cortical Thickness (if discernible): 10 mm (>6mm is normal) LEFT Kidney Size: 11 cm x 4.9 cm x 5.6 cm Volume: 158.49 mL Cortical Thickness (if discernible): 10 mm (>6mm is normal) There are 2 cysts in the inferior and midportion of the right kidney. The largest cyst measures 1.6 cm 1.5 cm x 1.3 cm. There is evidence of a nonobstructive 6 mm x 5 mm x 4 mm right renal calculus. Increased echotexture of the medullary pyramids of both kidneys suggestive of medullary sponge kidneys. US/Kidney and Bladder IMPRESSION: Right renal cysts. Nonobstructive right intrarenal calculus. Hyperechoic medullary pyramids involving both kidneys suggestive of medullary s ponge kidneys. No evidence of hydronephrosis at this time. Reading Location: [id number]
== END | disposition home or self-care (01) ==
LOC: US 12:45
PROVIDERS: PCP Nurse Practitioner; Referring Provider Nurse Practitioner Women's Health; Visit Provider Nurse Practitioner Women's Health
DX: M54.50 Low back pain, unspecified (principal); Z87.59 Personal history of other complications of pregnancy, childbirth and the puerperium; Z87.440 Personal history of urinary (tract) infections
CPT/HCPCS: 76770

== ENCOUNTER → 2025-05-21 | Outpatient (CLI) | payer MEDICAID, SELFPAY ==
[2025-05-21 14:46] LABS: Hematocrit 32.5 % (37-47); Hemoglobin 11.5 g/dL (12.0-15.0); Immature Granulocytes Count 0.010 X10^3/uL (0.0-0.0); Mean Corp Hgb Conc 35.4 g/dL (32-36); Mean Corpuscular Volume 88.1 fL (81-99); Mean Platelet Vol. 11.5 fl (6.2-12.0); NRBC Flagged by Analyzer 0 % (0-5); Platelet Count 212 K/mm3 (150-450); RBC Distribution Width CV 12.5 % (11.6-14.6); RBC Distribution Width SD 40.1 fl (35.1-43.9); Red Blood Count 3.69 M/mm3 (4.2-5.4); White Blood Count 7.6 K/mm3 (4.4-11.0)
[2025-05-21 15:28] LABS: AST(SGOT) 14 U/L (<=31); Alanine Aminotransfer ALT/SGPT 13 U/L (<=34); Albumin, Serum 4.0 g/dL (3.5-5.0); Alkaline Phosphatase 44 U/L (35-104); Anion Gap 11 (5-15); BUN 7 mg/dL (4-19); BUN/Creat Ratio 8.7 RATIO (10-20); Calcium,Total 9.9 mg/dL (7.6-11.0); Carbon Dioxide 23.2 mmol/L (21.0-32.0); Chloride 105 mmol/L (98-108); Globulin 2.7 g/dL (2.2-4.2); Glucose 129 mg/dL (70-99); Potassium 3.4 mmol/L (3.3-5.1)
[2025-05-21 15:59] LABS: Glucose Challenge Gest 1H 50g 133 mg/dL (70-140); HIV Nonreactive (Nonreactive); Syphilis Antibodies Nonreactive (Nonreactive)
== END | disposition home or self-care (01) ==
LOC: LAB 14:09
PROVIDERS: Obstetrics & Gynecology; PCP Nurse Practitioner; Referring Provider Advanced Practice Midwife; Visit Provider Advanced Practice Midwife
DX: O14.10 Severe pre-eclampsia, unspecified trimester (principal); Z3A.00 Weeks of gestation of pregnancy not specified
CPT/HCPCS: 36415; 80053; 82950; 85025; 86703; 86780; 87086; 87088

== ENCOUNTER → 2025-07-01 | Outpatient (CLI) | payer MEDICAID, SELFPAY ==
[2025-07-01 13:48] LABS: Hematocrit 32.9 % (37-47); Hemoglobin 11.3 g/dL (12.0-15.0); Immature Granulocytes Count 0.030 X10^3/uL (0.0-0.0); Mean Corp Hgb Conc 34.3 g/dL (32-36); Mean Corpuscular Volume 88.4 fL (81-99); Mean Platelet Vol. 11.2 fl (6.2-12.0); NRBC Flagged by Analyzer 0 % (0-5); Platelet Count 215 K/mm3 (150-450); RBC Distribution Width CV 12.5 % (11.6-14.6); RBC Distribution Width SD 40.3 fl (35.1-43.9); Red Blood Count 3.72 M/mm3 (4.2-5.4); White Blood Count 7.6 K/mm3 (4.4-11.0)
[2025-07-01 14:28] LABS: Creatinine, Urine (random) 59.30 mg/dL (28.00-217.00); Protein, Urine (Random) 16.9 mg/dL (0.0-12.0); Protein:Creat Ratio 285 mg/g CRE (0-200)
[2025-07-01 14:32] LABS: AST(SGOT) 14 U/L (<=31); Alanine Aminotransfer ALT/SGPT 13 U/L (<=34); Albumin, Serum 3.9 g/dL (3.5-5.0); Alkaline Phosphatase 48 U/L (35-104); Anion Gap 11 (5-15); BUN 5 mg/dL (4-19); BUN/Creat Ratio 6.6 RATIO (10-20); Calcium,Total 9.5 mg/dL (7.6-11.0); Carbon Dioxide 23.6 mmol/L (21.0-32.0); Chloride 104 mmol/L (98-108); Globulin 2.5 g/dL (2.2-4.2); Glucose 105 mg/dL (70-99); Potassium 3.2 mmol/L (3.3-5.1)
== END | disposition home or self-care (01) ==
LOC: BWCLAB 13:31
PROVIDERS: PCP Nurse Practitioner; Visit Provider Advanced Practice Midwife
DX: O26.899 Other specified pregnancy related conditions, unspecified trimester (principal); R51.9 Headache, unspecified; R10.20 Pelvic and perineal pain unspecified side; R39.15 Urgency of urination
CPT/HCPCS: 36415; 80053; 82570; 84156; 85025; 87086; 87088

== ENCOUNTER 2025-07-03 10:50 | Outpatient (CLI) | payer MEDICAID, SELFPAY ==
[2025-07-03 10:58] VITALS: BMI 37.4
[2025-07-03 11:28] LABS: Hematocrit 32.1 % (37-47); Hemoglobin 11.1 g/dL (12.0-15.0); Mean Corp Hgb Conc 34.6 g/dL (32-36); Mean Corpuscular Volume 87.7 fL (81-99); Mean Platelet Vol. 11.2 fl (6.2-12.0); Platelet Count 207 K/mm3 (150-450); RBC Distribution Width CV 12.3 % (11.6-14.6); RBC Distribution Width SD 39.4 fl (35.1-43.9); Red Blood Count 3.66 M/mm3 (4.2-5.4); White Blood Count 7.7 K/mm3 (4.4-11.0)
--- NOTE | 2025-07-03 11:36 | US_ITS ---
PROCEDURE: KIDNEY AND BLADDER 07/03/2025 REASON FOR EXAM: BACK PAIN AND HX PYELO TECHNIQUE: Procedure Code: USKI Modality: US Procedure: KIDNEY AND BLADDER COMPARISON: Kidneys and bladder, 03/31/2025. FINDINGS: Right kidney: 13.4 x 5.5 x 4.8 cm. The renal cortex measures 1.0 cm in thickness. There are right renal calculi measuring 6 mm and 6 mm, respectively. There is no hydronephrosis. There is an upper pole peripelvic cyst measuring 1.6 cm in diameter. There is a lower pole peripelvic cyst measuring 1.8 cm in diameter. There is increased echogenicity of the medullary pyramids consistent with medullary sponge kidney. Left kidney: 12.4 x 5.8 x 4.9 cm. The renal cortical thickness is 1.1 cm. There are left renal calculi measuring 5 mm and 4 mm in diameter. There is no hydronephrosis. There is increased echogenicity of the medullary pyramids consistent with medullary sponge kidney. The urinary bladder is unremarkable. 160 cc. Ureteral jets not demonstrated. US/Kidney and Bladder IMPRESSION: 1. Medullary sponge kidney. 2. Bilateral nephrolithiasis without evidence of obstruction. 3. Stable peripelvic cysts, right kidney. 4. The urinary bladder is unremarkable. Reading Location: [place] [id number]
--- NOTE | 2025-07-03 11:36 | US_ITS ---
PROCEDURE: ABDOMEN LIMITED 07/03/2025 REASON FOR EXAM: BACK PAIN HX PYELO TECHNIQUE: Procedure Code: USABDL Modality: US Procedure: ABDOMEN LIMITED COMPARISON: Renal ultrasound, same day. FINDINGS: Liver: Grossly normal size and echotexture. Normal hepatopetal flow in the MPV. Gallbladder: Single renal stone measuring 2.6 cm in diameter. Common bile duct: Normal measuring 2 mm. Pancreas: Visualized portions are unremarkable. The distal body and tail are obscured by bowel gas. Right kidney: See renal ultrasound report same day. No ascites. US/Abdomen Limited IMPRESSION: Cholelithiasis. Reading Location: [place] [id number]
[2025-07-03 11:52] LABS: AST(SGOT) 13 U/L (<=31); Alanine Aminotransfer ALT/SGPT 14 U/L (<=34); Estimated Creatinine Clearance 101.58 ml/min (50-250)
[2025-07-03 11:55] LABS: Creatinine, Urine (random) 27.00 mg/dL (28.00-217.00); Protein, Urine (Random) 7.4 mg/dL (0.0-12.0); Protein:Creat Ratio 275 mg/g CRE (0-200)
[2025-07-03 12:00] VITALS: BP 106/63; PULSE 58
[2025-07-03 12:15] VITALS: BP 108/65
[2025-07-03 12:18] LABS: Lipase 23 U/L (13-75); Uric Acid 5.8 mg/dL (2.6-6.0)
[2025-07-03 12:59] LABS: Lipase 23 U/L (13-75)
--- NOTE | 2025-07-03 16:12 | OB.TRI.PN ---
Progress Notes Date of Service: 07/03/25 Progress Note: Patient presents for triage evaluation secondary to back pain at 30.5 weeks FHT: 130 Moderate variability reactive no decelerations category I tracing [place]: no Contractions Assessment and plan: Pre e labs normal, abd and renal US, Reactive NST, reassuring maternal and status patient discharged to home to follow-up with urogyn and in office next week. keflex ordered. . See problem list details for additional plan information. Laboratory Studies: Laboratory Tests 07/03/25 07/03/25 Range/Units 11:20 11:20 WBC 7.7 (4.4-11.0) K/mm3 RBC 3.66 L (4.2-5.4) M/mm3 Hgb 11.1 L (12.0-15.0) g/dL Hct 32.1 L (37-47) % MCV 87.7 (81-99) fL MCH 30.3 (27.0-32.0) pg MCHC 34.6 (32-36) g/dL RDW Std Deviation 39.4 (35.1-43.9) fl RDW Coeff of [place] 12.3 (11.6-14.6) % Plt Count 207 (150-450) K/mm3 MPV 11.2 (6.2-12.0) fl Creatinine 0.83 (0.70-1.20) mg/dL Estim Creat Clear Calc 101.58 (50-250) ml/min Est GFR (MDRD) Non-Af 100 (>60) Uric Acid 5.8 (2.6-6.0) mg/dL AST 13 (<=31) U/L ALT 14 (<=34) U/L Lipase 23 23 (13-75) U/L U Random Total Protein 7.4 (0.0-12.0) mg/dL Urine Creatinine 27.00 L (28.00-217.00) mg/dL Protein/Creatinin Ratio 275 H (0-200) mg/g CRE Charges/Coding Visit Charges Office Visits / Consults: 62146 OV L3 Est 20min Multi Select Codes Urinary/Genital Urinary/Genital CPT Codes: 45699-61 non-stress test Interp Assessment & Plan (1) Bilateral kidney stones: COMMENT: non obstructing-keflex ordered for rest of , Urogyn consult (2) Medullary sponge kidney: (3) Fecal smearing: (4) Urinary tract infection, site not specified: (5) History of maternal pyelonephritis: COMMENT: with 3rd . Having bilat mid back pain again. UA +;keflex sent. Urine culture and US ordered (6) History of hypokalemia: (7) History of delivery, currently : COMMENT: 34weeks, first baby, took progesterone other pregnancies, plan CL screening and MFM consult. Rpt CL 22 weeks. Growth Q4wk. (8) History of hyperemesis gravidarum: COMMENT: last 2 pregnancies, admitted many times. off geodon, ordered zofran (9) History of pre-eclampsia in prior , currently : COMMENT: Pre-e baseline labs ordered, ASA 81mg (10) Obesity affecting : QUALIFIERS: Trimester: second trimester Obesity type affecting : unspecified obesity Qualified Code(s): O99.212 - Obesity complicating , second trimester COMMENT: BMI 36.7; HgBA1C ordered w/NOB. Growth Q4wk. (11) History of miscarriage, currently : COMMENT: x1 (12) Supervision of high-risk : QUALIFIERS: Trimester: second trimester Qualified Code(s): O09.92 - Supervision of high risk , unspecified, second trimester COMMENT: PRR , SANIA 09/06, PC: Martir Gordon & Gab Irving: Luc (13) : QUALIFIERS: Weeks of gestation: 30 weeks Qualified Code(s): Z3A.30 - 30 weeks gestation of COMMENT: NIPT low risk, Discussed genetic/carrier testing - nipt planned and plan mfm consult 1st trimester
== END 2025-07-03 16:15 | disposition home or self-care (01) ==
LOC: WPOUT 10:57 → WP 10:57
PROVIDERS: PCP Nurse Practitioner; Referring Provider Advanced Practice Midwife; Visit Provider Advanced Practice Midwife
DX: O99.891 Other specified diseases and conditions complicating pregnancy (principal); M54.9 Dorsalgia, unspecified; Z3A.30 30 weeks gestation of pregnancy
CPT/HCPCS: 36415; 59025; 59050; 76705; 76770; 82565; 82570; 83690; 84156; 84450; 84460; 84550; 85027; 99221; G0378